=== PATIENT | male | born 1950 | race Caucasian/White ===

== ENCOUNTER 2022-12-01 11:15 | Emergency (ER) | payer MEDICARE, SELFPAY ==
[2022-12-01] VITALS (21 sets, daily range): BP systolic 124–132; BP diastolic 90–100; PULSE 78–95; RESP 8–22; O2SAT 91–98; BMI 27.4
--- NOTE | 2022-12-01 11:18 | ED_ITS ---
HPI - General Adult General Chief complaint: Shortness of Breath/Dyspnea Stated complaint: SOB/FEELS FLUID IN LUNGS Time Seen by Provider: 12/01/22 11:18 History of Present Illness HPI narrative: pt presents emergency department complaining of dyspnea. He states He has been short of breath for the last Weak. He called his primary care doctor today and was told to come in for evaluation. Patient denies any lower extremity edema, or cramping. He has a history of congestive heart failure. He has a implantable cardiac defibrillator implanted by in [place]. Patient is a poor historian. States he has been taking all his medications. States he is not currently on a diuretic. He states he took all of his medications this morning. He denies any chest pain.Denies any fever, chills, or cough. He denies any runny nose, or sore throat. Related Data Home Medications Medication Instructions Recorded Confirmed carvedilol 25 mg tablet 25 mg PO Q12H 12/01/22 12/01/22 levothyroxine 150 mcg tablet 200 mcg PO DAILY 12/01/22 12/01/22 sacubitril 24 mg-valsartan 26 mg 1 tab PO BID 12/01/22 12/01/22 tablet (Entresto) Previous Rx's Medication Instructions Recorded cefdinir 300 mg capsule 300 mg PO BID 10 days #20 caps 12/01/22 furosemide 20 mg tablet (Lasix) 20 mg PO DAILY #7 tabs 12/01/22 ondansetron HCl 4 mg tablet 4 mg PO Q6H PRN nausea and 12/01/22 vomiting #10 tabs Allergies Allergy/AdvReac Type Severity Reaction Status Date / Time No Known Drug Allergies Allergy Verified 12/01/22 11:24 Review of Systems ROS Status of ROS 10 or more systems reviewed and unremarkable except as noted in history and below Exam Narrative Exam Narrative: Nurses notes and vital signs reviewed and patient is not hypoxic. General: Nontoxic, Elderly, frail, chronically ill and in no apparent distress. Skin: Warm, dry, no pallor noted. No Rash Head: Normocephalic, atraumatic. Neck: Supple, non-tender. Eye: Pupils are equal, round and EOMI. No scleral icterus. Ears, Nose, Mouth, and Throat: TM clear, no posterior oropharynx erythema or nasal mucosal hypertrophy, uvula is mid-line Oral mucosa is moist Cardiovascular: Regular Rate and Rhythm without murmur, gallop or rub. Respiratory: No accessory muscle use or respiratory distress. Lungs: occasional crackles. Chest Wall: no tenderness Back: No midline thoracic or lumbar vertebral tenderness. No CVA tenderness Musculoskeletal: normal ROM, no calf or popliteal tenderness, no lower extremity edema/swelling GI: Abdomen is soft, non-distended. Normal bowel sounds. No masses appreciated. No tenderness to palpation. No rebound, guarding, or rigidity noted. Neurological: A&O x4. No cranial nerve dysfunction observed. No truncal ataxia. Moves all extremities. Sensation intact. Psychiatric: Cooperative and interactive. Normal mood and affect. Constitutional Vital Signs, click to edit/add: Last Vital Signs Pulse 78 12/01/22 14:20 Resp 8 L 12/01/22 14:20 BP 127/94 H 12/01/22 13:31 Pulse Ox 97 12/01/22 14:20 O2 Del Method Room Air 12/01/22 11:19 Course Vital Signs Vital signs: Vital Signs Pulse Rate 94 H 12/01/22 11:19 Respiratory Rate 22 12/01/22 11:19 Blood Pressure 132/100 H 12/01/22 11:19 Pulse Oximetry 97 12/01/22 11:19 Oxygen Delivery Method Room Air 12/01/22 11:19 Pulse Rate 78 12/01/22 14:20 Respiratory Rate 8 L 12/01/22 14:20 Blood Pressure 127/94 H 12/01/22 13:31 Pulse Oximetry 97 12/01/22 14:20 Oxygen Delivery Method Room Air 12/01/22 11:19 Medical Decision Making [facility] Narrative Medical decision making narrative: Patient hemodynamically stable. He is not hypoxic. He was given Lasix 20 mg IV which helped diurese. 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 She will be given Lasix 20 mg to take home for 3 days. She was started on Omnicef. Nontoxic, stable for outpatient follow-up and treatment. Patient vomited one time in the emergency department. He is given a prescription for Zofran. He was given Zofran in the emergency department he was tolerating by mouth. Abdomen is benign and nonsurgical. At this time the patient is without objective evidence of an acute process requiring hospitalization or inpatient management. The patient has remained hemodynamically stable. No additional indication for emergent studies at this time. I answered all questions. Discussed discharge instructions including standard anticipatory guidance and what should prompt a return to the emergency department, including if they get worse are not getting better or develops any new or concerning symptoms. I've given them specific time frame in which to follow-up, and who to follow-up with. The patient demonstrates understanding. Patient is nontoxic and stable for discharge with outpatient follow-up. This note was created with the assistance of a speech recognition program. Although the intention is to generate documents that actually reflects the content of the visit, no guarantees can be provided that every mistake has been identified and corrected by editing. Medical Records Medical records reviewed: Yes I reviewed the patient's medical records Lab Data Lab results reviewed: Yes I reviewed the patient's lab results Labs: Lab Results 12/01/22 12/01/22 12/01/22 Range/Units 11:35 13:46 14:35 WBC 5.1 (4.0-11.0) 10^3/uL RBC 4.53 L (4.70-6.10) 10^6/uL Hgb 14.8 (14.0-18.0) g/dL Hct 44.7 (42.0-54.0) % MCV 98.7 H (80.0-94.0) fL MCH 32.7 (25.9-34.0) pg MCHC 33.1 (29.9-35.2) g/dL RDW 14.6 (11.0-15.0) % Plt Count 185 (150-450) 10^3/uL MPV 10.4 (9.5-13.5) fL Neut % (Auto) 64.5 (43.0-75.0) % Lymph % (Auto) 23.5 (20.5-60.0) % Yates % (Auto) 5.9 (1.7-12.0) % Eos % (Auto) 3.7 (0.9-7.0) % Baso % (Auto) 1.4 (0.2-2.0) % Neut # (Auto) 3.3 (1.4-6.5) 10^3/uL Lymph # (Auto) 1.2 (1.2-3.8) 10^3/uL Yates # (Auto) 0.3 (0.3-0.8) 10^3/uL Eos # (Auto) 0.2 (0.0-0.7) 10^3/uL Baso # (Auto) 0.1 (0.0-0.1) 10^3/uL Abs Immat Gran (auto) 0.05 H (0.00-0.03) 10^3/uL Imm/Tot Granulo (auto) 1.0 H (0.0-0.5) % Sodium 140 (136-145) mmol/L Potassium 3.9 (3.5-5.1) mmol/L Chloride 105 (98-107) mmol/L Carbon Dioxide 29.0 (21.0-32.0) mmol/L Anion Gap 9.9 BUN 10.0 (7.0-18.0) mg/dL Creatinine 1.79 H (0.70-1.30) mg/dL Est GFR ( Amer) 46 L (>=60) Est GFR (Non-Af Amer) 38 L (>=60) BUN/Creatinine Ratio 5.6 Glucose 126 H (74-106) mg/dL Lactate 0.9 (0.4-2.0) mmol/L Calcium 8.5 (8.5-10.1) mg/dL Total Bilirubin 1.9 H (0.2-1.0) mg/dL AST 51 H (15-37) U/L ALT 27 (16-63) U/L Alkaline Phosphatase 70 (46-116) U/L Troponin I High Sens 21.4 (4.0-76.1) pg/mL NT-Pro-B Natriuret Pep 2725.0 H* (<=900.0) pg/mL Total Protein 8.3 H (6.4-8.2) g/dL Albumin 3.8 (3.4-5.0) g/dL Globulin 4.5 g/dL Albumin/Globulin Ratio 0.8 Lipase 102.0 (73.0-393.0) U/L Urine Color Lt. yellow (YELLOW) Urine Clarity Clear (CLEAR) Urine pH 6.0 (5.0-9.0) Ur Specific [place] <=1.005 A (1.005-1.025) Urine Protein Negative (NEG/TRACE) mg/dL Urine Glucose (UA) Negative (NEGATIVE) mg/dL Urine Ketones Negative (NEGATIVE) mg/dL Urine Occult Blood Negative (NEGATIVE) Urine Nitrite Negative (NEGATIVE) Urine Bilirubin Negative (NEGATIVE) Urine Urobilinogen 0.2 (0.2-1.0) EU/dL Ur Leukocyte Esterase Negative (NEGATIVE) ECG Data Attestation: I personally reviewed and interpreted this ECG as follows: Discharge Plan Discharge Chief Complaint: Shortness of Breath/Dyspnea Clinical Impression: Congestive heart failure, Community acquired pneumonia, Pleural effusion Patient Disposition: Home, Self-Care Time of Disposition Decision: 14:53 Condition: Good Mode of Transportation: Private Vehicle Prescriptions / Home Meds: New cefdinir 300 mg capsule 300 mg PO BID 10 Days Qty: 20 0RF furosemide [Lasix] 20 mg tablet 20 mg PO DAILY Qty: 7 0RF ondansetron HCl 4 mg tablet 4 mg PO Q6H PRN (Reason: nausea and vomiting) Qty: 10 0RF No Action carvedilol 25 mg tablet 25 mg PO Q12H levothyroxine 150 mcg tablet 200 mcg PO DAILY Entresto 24-26 mg tablet 1 tab PO BID Instructions: Heart Failure (ED), Community Acquired Pneumonia (ED) Additional Instructions: 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 Stand Alone Forms: Portal Instructions Referrals: JAN RIZZO [Primary Care Provider] - 1 week Discharge Date/Time: 12/01/22 15:10
--- NOTE | 2022-12-01 11:25 | XR_ITS ---
The [address] [address] Patient Name: CORKY DUENAS MRN: [id number] date: 1950 Sex: M Assigned Patient Location: ER Current Patient Location: ER Accession/Order Number: [id number] Exam Date: 12/01/2022 11:58 Report Date: 12/01/2022 12:11 At the request of: DUSTIN AGUIRRE Procedure: XR chest 1V EXAMINATION: XR chest 1V HISTORY: dyspnea COMPARISON: 04/17/2021 TECHNIQUE: AP portable FINDINGS: LUNGS: Low lung volumes. The right lung is clear. Left basilar infiltrate partially obscuring the hemidiaphragm VASCULATURE: No increased pulmonary vasculature. PLEURA: No pneumothorax, effusion, or pleural thickening. CARDIAC: No cardiomegaly or cardiac silhouette abnormality. MEDIASTINUM: No visible mass or adenopathy. Left stable pacemaker BONES: No fracture or visible bone lesion. OTHER: Negative. XR/XR chest 1V IMPRESSION: Left basilar infiltrate, consider pneumonia Electronically authenticated by: CANDI LOGAN Date: 12/01/2022 12:11
--- NOTE | 2022-12-01 11:25 | ECG_ITS ---
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
[2022-12-01 11:53] LABS: Basophils Absolute Auto 0.1 10^3/uL (0.0-0.1); Basophils Percent Auto 1.4 % (0.2-2.0); Eosinophils Absolute Auto 0.2 10^3/uL (0.0-0.7); Eosinophils Percent Auto 3.7 % (0.9-7.0); Hematocrit 44.7 % (42.0-54.0); Hemoglobin 14.8 g/dL (14.0-18.0); Immature Granulocytes Abs Auto 0.05 10^3/uL (0.00-0.03); Lymphocytes Absolute Auto 1.2 10^3/uL (1.2-3.8); Lymphocytes Percent Auto 23.5 % (20.5-60.0); Mean Corpuscular HGB Conc 33.1 g/dL (29.9-35.2); Mean Corpuscular Hemoglobin 32.7 pg (25.9-34.0); Mean Corpuscular Volume 98.7 fL (80.0-94.0); Mean Platelet Volume 10.4 fL (9.5-13.5); Monocytes Absolute Auto 0.3 10^3/uL (0.3-0.8); Monocytes Percent Auto 5.9 % (1.7-12.0); Neutrophils Absolute Auto 3.3 10^3/uL (1.4-6.5); Neutrophils Percent Auto 64.5 % (43.0-75.0); Platelet Count 185 10^3/uL (150-450); Red Blood Count 4.53 10^6/uL (4.70-6.10); Red Cell Distribution Width 14.6 % (11.0-15.0); White Blood Count 5.1 10^3/uL (4.0-11.0)
[2022-12-01 12:10] LABS: Anion Gap 9.9
[2022-12-01 12:16] LABS: Alanine Aminotransferase 27 U/L (16-63); Albumin Globulin Ratio 0.8; Albumin Level 3.8 g/dL (3.4-5.0); Alkaline Phosphatase 70 U/L (46-116); Aspartate Amino Transferase 51 U/L (15-37); BUN Creatinine Ratio 5.6; Bilirubin Total 1.9 mg/dL (0.2-1.0); Calcium 8.5 mg/dL (8.5-10.1); Chloride 105 mmol/L (98-107); Estimated GFR (African America 46 (>=60); Estimated GFR (Non-African Ame 38 (>=60); Globulin 4.5 g/dL; Glucose 126 mg/dL (74-106); Potassium 3.9 mmol/L (3.5-5.1); Sodium 140 mmol/L (136-145); Total Protein 8.3 g/dL (6.4-8.2); Troponin I High Sensitivity 21.4 pg/mL (4.0-76.1)
[2022-12-01] MEDS: CEFTRIAXONE 1,000 MG in 0.9 % SODIUM CHLORIDE 50 ML 100 MG IV (12:53)
[2022-12-01] MEDS: ONDANSETRON PF 4 MG/2 ML VIAL IV (13:11)
--- NOTE | 2022-12-01 13:29 | CT_ITS ---
The [address] [address] Patient Name: CORKY DUENAS MRN: [id number] date: 1950 Sex: M Assigned Patient Location: ER Current Patient Location: ER Accession/Order Number: [id number] Exam Date: 12/01/2022 13:55 Report Date: 12/01/2022 14:29 At the request of: DUSTIN AGUIRRE Procedure: CT abdomen pelvis wo con EXAM: CT abdomen pelvis wo con HISTORY: pain . Acute upper abdominal pain COMPARISON: 2021 CT abdomen pelvis TECHNIQUE: 3 mm axial images were obtained in the pelvis without contrast FINDINGS: Small bilateral pleural effusions. Multiple small hepatic hypodensities, likely cysts. The stomach is nondistended. Spleen appears normal. Previous cholecystectomy. Simple and complex cysts of the bilateral kidneys. The largest measuring 3.5 and 3.8 cm on the right. Additional small hyperdense most likely hemorrhagic cysts. Additional cysts of the left kidney largest 17 mm. 4 and 5 mm nephroliths left kidney. No hydronephrosis. The distal ureters appear unremarkable Mild presacral stranding or fluid.. Colonic diverticula. No obstruction or inflammation. The terminal ileum appears normal. The appendix is not seen. Few mildly prominent proximal small bowel loops without mural thickening or nonobstructive pattern. No ascites. Vascular calcification of the abdominal aorta. No skeletal abnormality CT/CT abdomen pelvis wo con IMPRESSION: Bilateral pleural effusions. Hepatic cysts Simple and complex renal cysts. Limited evaluation without contrast Nonobstructing left-sided nephroliths. No acute findings in the abdomen and pelvis by CT without contrast Electronically authenticated by: SPEEDY WHYTE Date: 12/01/2022 14:29
[2022-12-01] MEDS: FUROSEMIDE 20 MG/2 ML VIAL IVP (13:31)
[2022-12-01 14:09] LABS: Lactate/Lactic Acid 0.9 mmol/L (0.4-2.0)
[2022-12-01 14:59] LABS: Bilirubin Urine NEGATIVE (NEGATIVE); Blood Urine NEGATIVE (NEGATIVE); Clarity Urine CLEAR (CLEAR); Color Urine LT. YELLOW (YELLOW); Glucose Urine UA NEGATIVE (NEGATIVE); Ketones Urine NEGATIVE (NEGATIVE); Leukocyte Esterase Urine NEGATIVE (NEGATIVE); Nitrite Urine NEGATIVE (NEGATIVE); Protein Urine NEGATIVE (NEG/TRACE); Specific Gravity Urine <=1.005 (1.005-1.025); Urobilinogen Urine 0.2 EU/dL (0.2-1.0)
[2022-12-01 15:07] LABS: Urine Microscopic Indicated NO
== END 2022-12-01 15:10 | disposition home or self-care (01) ==
PROVIDERS: Emergency Provider Emergency Medicine; PCP Internal Medicine
DX: J18.9 Pneumonia, unspecified organism (principal); I50.9 Heart failure, unspecified; Z95.810 Presence of automatic (implantable) cardiac defibrillator; Z79.899 Other long term (current) drug therapy; Z79.890 Hormone replacement therapy
CPT/HCPCS: 36415; 71045; 74176; 80053; 81003; 83605; 83690; 83880; 84484; 85025; 87040; 93005; 96365; 96375; 99285

== ENCOUNTER 2023-01-09 13:55 | Outpatient (OUT) | payer MEDICARE, SELFPAY ==
[2023-01-09 15:08] LABS: Free T3 0.54 pg/mL (2.18-3.98)
[2023-01-09 15:14] LABS: Free T4 0.16 ng/dL (0.76-1.46)
== END 2023-01-09 13:56 | disposition home or self-care (01) ==
LOC: LAB 13:57
PROVIDERS: PCP Internal Medicine; Visit Provider Internal Medicine
DX: E06.3 Autoimmune thyroiditis (principal); E55.9 Vitamin D deficiency, unspecified
CPT/HCPCS: 36415; 82306; 84439; 84443; 84481

== ENCOUNTER 2023-02-10 09:48 | Emergency (ER) | payer MEDICARE, SELFPAY ==
[2023-02-10 09:54] VITALS: BP 118/90; PULSE 98; RESP 16; TEMP 36.4; O2SAT 98; BMI 25.2
--- NOTE | 2023-02-10 10:31 | ED_ITS ---
HPI - Dizziness General Chief Complaint: Dizziness Stated Complaint: DIZZINESS Time Seen by Provider: 02/10/23 10:17 Source: patient Mode of arrival: Wheelchair Limitations: no limitations History of Present Illness HPI Narrative: patient here with his friend with complaint of dizziness. He states when he walks and moves around his head feels like it swimming and everything going around. He's had this condition off and on for some time. He does not have associated headache. He does not have diplopia dysarthria or dysphasia. He's nota clumsiness of his hands or his legs. He lives independently. He has not fallen. He does not have any pain in his neck. He does not have any chest pain or shortness of breath. He does have valvular heart disease and apparently told him it [place] that they did not want to do surgery on him and is not much more they could do. He does have a local primary care doctor needs told him about the dizziness previously but is not on any medications. Related Data Home Medications Medication Instructions Recorded Confirmed carvedilol 25 mg tablet 25 mg PO Q12H 12/01/22 12/01/22 levothyroxine 150 mcg tablet 200 mcg PO DAILY 12/01/22 12/01/22 sacubitril 24 mg-valsartan 26 mg 1 tab PO BID 12/01/22 12/01/22 tablet (Entresto) Previous Rx's Medication Instructions Recorded cefdinir 300 mg capsule 300 mg PO BID 10 days #20 caps 12/01/22 furosemide 20 mg tablet (Lasix) 20 mg PO DAILY #7 tabs 12/01/22 ondansetron HCl 4 mg tablet 4 mg PO Q6H PRN nausea and 12/01/22 vomiting #10 tabs Allergies Allergy/AdvReac Type Severity Reaction Status Date / Time No Known Drug Allergies Allergy Verified 12/01/22 11:24 [facility] Social History Smoking status: Former smoker Exam Narrative Exam Narrative: awake alert appears in no distress he's a good historian actually. Vital signs are noted. Examination constitutional skin turgor are good with no dense pallor or scleral icterus or anemia. Neck shows no jugular venous distention. No carotid bruits on either side. Chest examination shows a loud grade 4/6 systolic murmur. Heart rate and rhythm are otherwise normal. He does have a pacemaker in his left upper chest and his EKG is a paced rhythm. Abdomen is soft and supple with no tenderness guarding mass or rebound. Isabel rological examination shows speech cognition and mentation within normal. Cerebellar function testing is normal. On x-ray neck muscle testing of his eyes he has definite nystagmus with left and right lateral gaze it is horizontal and not vertical. Movement of the extremities and strength is normal with no obvious neurological deficit. Constitutional Vital Signs, click to edit/add: Last Vital Signs Temp 97.5 F L 02/10/23 09:54 Pulse 98 H 02/10/23 09:54 Resp 16 02/10/23 09:54 BP 118/90 02/10/23 09:54 Pulse Ox 98 02/10/23 09:54 O2 Del Method Room Air 02/10/23 09:54 Course Vital Signs Vital signs: Vital Signs Temperature 97.5 F L 02/10/23 09:54 Pulse Rate 98 H 02/10/23 09:54 Respiratory Rate 16 02/10/23 09:54 Blood Pressure 118/90 02/10/23 09:54 Pulse Oximetry 98 02/10/23 09:54 Oxygen Delivery Method Room Air 02/10/23 09:54 Temperature 97.5 F L 02/10/23 09:54 Pulse Rate 98 H 02/10/23 09:54 Respiratory Rate 16 02/10/23 09:54 Blood Pressure 118/90 02/10/23 09:54 Pulse Oximetry 98 02/10/23 09:54 Oxygen Delivery Method Room Air 02/10/23 09:54 MDM - Dizziness MDM Narrative Medical decision making narrative: patient comes in with an exacerbation of dizziness. CT scan shows no acute findings. Examination had no focal neurological deficits and there is no bulbar symptomatology. His EKG is a paced rhythm. I hear no carotid bruits. He's never been treated with any type of medication for dizziness. We'll start him on Antivert but is important that he follow up with the primary care doctor consider other diagnostic testing Discharge Plan Discharge Chief Complaint: Dizziness Clinical Impression: Vertigo Patient Disposition: Home, Self-Care Time of Disposition Decision: 11:24 Prescriptions / Home Meds: No Action carvedilol 25 mg tablet 25 mg PO Q12H levothyroxine 150 mcg tablet 200 mcg PO DAILY Entresto 24-26 mg tablet 1 tab PO BID cefdinir 300 mg capsule 300 mg PO BID 10 Days Qty: 20 0RF furosemide [Lasix] 20 mg tablet 20 mg PO DAILY Qty: 7 0RF ondansetron HCl 4 mg tablet 4 mg PO Q6H PRN (Reason: nausea and vomiting) Qty: 10 0RF Additional Instructions: start Antivert one tablet three times a day for several days. Follow up primary care doctor if symptoms don't improve for further testing Stand Alone Forms: Portal Instructions Referrals: JAN RIZZO [Primary Care Provider] - 1 week
--- NOTE | 2023-02-10 10:31 | CT_ITS ---
The [address] [address] Patient Name: CORKY DUENAS MRN: [id number] date: 1950 Sex: M Assigned Patient Location: ER Current Patient Location: ER Accession/Order Number: [id number] Exam Date: 02/10/2023 10:37 Report Date: 02/10/2023 10:55 At the request of: MEGAN GUILLAUME Procedure: CT head/brain wo con EXAM: CT head/brain wo con HISTORY: vertigo COMPARISON: None. TECHNIQUE: Axial noncontrast CT imaging of the brain was performed with coronal and sagittal reformats This CT exam was performed using one or more of the following dose reduction techniques: Automated exposure control, adjustment of the MA and/or kV according to patient size, or use of iterative reconstruction technique. FINDINGS: Calvarium/skull base: No evidence of acute fracture or destructive lesion. Mastoids and middle ears demonstrate no substantial mucosal disease. Paranasal sinuses: No air fluid levels. Brain: No acute intracranial hemorrhage. No acute large vascular territory infarct. Prominent calcification of the bilateral globus pallidus, likely physiologic in nature. Mild parenchymal No mass lesion or mass effect. No hydrocephalus. CT/CT head/brain wo con IMPRESSION: No acute intracranial process. Electronically authenticated by: SANJU CONTRERAS Date: 02/10/2023 10:55
--- NOTE | 2023-02-10 15:03 | ECG_ITS ---
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
== END 2023-02-10 11:35 | disposition home or self-care (01) ==
PROVIDERS: Emergency Provider Emergency Medicine Emergency Medical Services; PCP Internal Medicine
DX: R42 Dizziness and giddiness (principal); Z79.899 Other long term (current) drug therapy; Z79.890 Hormone replacement therapy; Z87.891 Personal history of nicotine dependence
CPT/HCPCS: 70450; 93005; 99284

== ENCOUNTER 2023-03-03 10:08 | Inpatient (IN) | payer MEDICARE, SELFPAY ==
[2023-03-03] VITALS (36 sets, daily range): BP systolic 69–116; BP diastolic 44–86; PULSE 86–102; RESP 10–31; TEMP 35.7–36.4; O2SAT 87–99; BMI 24.2; BMI 25.7
--- NOTE | 2023-03-03 10:23 | CT_ITS ---
The [address] [address] Patient Name: CORKY DUENAS MRN: [id number] date: 1950 Sex: M Assigned Patient Location: ED.MAIN Current Patient Location: Accession/Order Number: [id number] Exam Date: 03/03/2023 10:38 Report Date: 03/03/2023 11:06 At the request of: NORBERTO SCHWARTZ Procedure: CT head/brain wo con EXAMINATION: CT head/brain wo con HISTORY: fall , dizziness COMPARISON: CT head 02/10/2023 TECHNIQUE: Axial CT images were obtained without IV contrast. Dose reduction techniques were achieved by using automated exposure control and/or adjustment of mA and/or kV according to patient size and/or use of iterative reconstruction technique. FINDINGS: BRAIN: Stable, chronic calcium deposition within the basal ganglia bilaterally. Mild atrophy and chronic small vessel ischemic changes. No edema, hemorrhage, mass, acute infarction, or inappropriate atrophy. CSF SPACES: No hydrocephalus, subarachnoid hemorrhage, or mass. Appropriate for age. SKULL: No fracture, mass, or other significant visible lesion. SINUSES: No significant mucosal thickening or fluid on the limited views. ORBITS: No appreciable abnormality on the limited views. OTHER: Negative CT/CT head/brain wo con IMPRESSION: 1. No intracranial hemorrhage or appreciable acute abnormality. 2. Stable age-related chronic changes. 3. No fracture of the calvarium or scalp hematoma. Electronically authenticated by: YAJAIRA MISHRA Date: 03/03/2023 11:06
--- NOTE | 2023-03-03 10:23 | XR_ITS ---
The [address] [address] Patient Name: CORKY DUENAS MRN: [id number] date: 1950 Sex: M Assigned Patient Location: ED.MAIN Current Patient Location: ER Accession/Order Number: [id number] Exam Date: 03/03/2023 10:38 Report Date: 03/03/2023 11:00 At the request of: NORBERTO SCHWARTZ Procedure: XR chest 1V EXAMINATION: XR chest 1V HISTORY: dizziness COMPARISON: XR chest 12/01/2022 FINDINGS: LUNGS: Large area of increased density within right upper lobe, 8.2 cm in diameter. Left lung is clear. VASCULATURE: No increased pulmonary vasculature. PLEURA: No pneumothorax, effusion, or pleural thickening. CARDIAC: Stable heart size. Grossly stable cardiac pacer. MEDIASTINUM: No visible mass or adenopathy. BONES: No fracture or visible bone lesion. OTHER: Negative. XR/XR chest 1V IMPRESSION: 1. Large right upper lobe opacities suspected to represent pneumonia; new since prior study. Electronically authenticated by: YAJAIRA MISHRA Date: 03/03/2023 11:00
--- NOTE | 2023-03-03 10:23 | ECG_ITS ---
The 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
[2023-03-03 10:37] LABS: Basophils Absolute Auto 0.1 10^3/uL (0.0-0.1); Basophils Percent Auto 1.6 % (0.2-2.0); Eosinophils Absolute Auto 0.1 10^3/uL (0.0-0.7); Eosinophils Percent Auto 0.8 % (0.9-7.0); Hematocrit 41.7 % (42.0-54.0); Immature Granulocytes Abs Auto 0.08 10^3/uL (0.00-0.03); Immature Granulocytes Pct Auto 1.3 % (0.0-0.5); Lymphocytes Percent Auto 15.9 % (20.5-60.0); Mean Corpuscular HGB Conc 31.2 g/dL (29.9-35.2); Mean Corpuscular Hemoglobin 32.6 pg (25.9-34.0); Mean Corpuscular Volume 104.5 fL (80.0-94.0); Monocytes Absolute Auto 0.3 10^3/uL (0.3-0.8); Monocytes Percent Auto 4.8 % (1.7-12.0); Neutrophils Absolute Auto 4.6 10^3/uL (1.4-6.5); Neutrophils Percent Auto 75.6 % (43.0-75.0); Platelet Count 297 10^3/uL (150-450); Red Blood Count 3.99 10^6/uL (4.70-6.10); Red Cell Distribution Width 16.6 % (11.0-15.0); White Blood Count 6.1 10^3/uL (4.0-11.0)
[2023-03-03 10:53] LABS: Anion Gap 12.6; BUN Creatinine Ratio 9.6; Carbon Dioxide 28.2 mmol/L (21.0-32.0); Chloride 103 mmol/L (98-107); Estimated GFR (African America 43 (>=60); Estimated GFR (Non-African Ame 36 (>=60); Glucose 132 mg/dL (74-106); Potassium 3.8 mmol/L (3.5-5.1); Sodium 140 mmol/L (136-145); Troponin I High Sensitivity 15.3 pg/mL (4.0-76.1)
[2023-03-03] MEDS: CEFTRIAXONE 1,000 MG in 0.9 % SODIUM CHLORIDE 50 ML 100 MG IV (11:26)
[2023-03-03 11:28] LABS: Lactate/Lactic Acid 2.1 mmol/L (0.4-2.0)
--- NOTE | 2023-03-03 12:02 | ED.GENADUL1 ---
HPI - General Adult General Chief complaint: Dizziness Stated complaint: SYNCOPE Time Seen by Provider: 03/03/23 10:11 Source: patient Mode of arrival: Wheelchair Limitations: physical limitation History of Present Illness HPI narrative: 72-year-old male presented for weakness and dizziness. He had fallen about a week ago and hit his head. He reportedly had a negative CAT scan as an outpatient. He states had a slight cough and has felt more weak. No vomiting or diarrhea. No hemoptysis. Related Data Home Medications Medication Instructions Recorded Confirmed carvedilol 25 mg tablet 25 mg PO Q12H 12/01/22 12/01/22 levothyroxine 150 mcg tablet 200 mcg PO DAILY 12/01/22 12/01/22 sacubitril 24 mg-valsartan 26 mg 1 tab PO BID 12/01/22 12/01/22 tablet (Entresto) meclizine 25 mg chewable tablet 25 mg PO TID 02/10/23 02/10/23 (Antivert) Previous Rx's Medication Instructions Recorded cefdinir 300 mg capsule 300 mg PO BID 10 days #20 caps 12/01/22 furosemide 20 mg tablet (Lasix) 20 mg PO DAILY #7 tabs 12/01/22 ondansetron HCl 4 mg tablet 4 mg PO Q6H PRN nausea and 12/01/22 vomiting #10 tabs Allergies Allergy/AdvReac Type Severity Reaction Status Date / Time No Known Drug Allergies Allergy Verified 03/03/23 10:21 Review of Systems ROS Narrative A ten point review of systems is negative except as noted above. PFSH PFSH Social History Smoking status: Former smoker Exam Narrative Exam Narrative: Nurses note and vital signs reviewed and patient is not hypoxic. General: The patient appears well and in no apparent distress. Patient is resting comfortably on cart. Skin: Warm, dry, no pallor noted. There is no rash noted. Head: Normocephalic, bruise present on the left forehead, cervical spine nontender Eye: Normal conjunctiva, no drainage Ears, Nose, Mouth, and Throat: oral mucosa is moist. Nares patent. Cardiovascular: Regular Rate and Rhythm Respiratory: Patient is in no distress, no accessory muscle use, lungs are clear to auscultation, no wheezing, rales or rhonchi Back: non-tender GI: left and nontender Musculoskeletal: bilateral lower extremity edema present Neurological: A&O x4, normal speech Psychiatric: Cooperative Constitutional Vital Signs, click to edit/add: Last Vital Signs Temp 97.3 F L 03/03/23 10:39 Pulse 102 H 03/03/23 10:15 Resp 18 03/03/23 10:15 BP 107/76 03/03/23 10:15 Pulse Ox 96 03/03/23 10:15 O2 Del Method Room Air 03/03/23 10:15 Course Vital Signs Vital signs: Vital Signs Pulse Rate 102 H 03/03/23 10:15 Respiratory Rate 18 03/03/23 10:15 Blood Pressure 107/76 03/03/23 10:15 Pulse Oximetry 96 03/03/23 10:15 Oxygen Delivery Method Room Air 03/03/23 10:15 Temperature 97.3 F L 03/03/23 10:39 Pulse Rate 102 H 03/03/23 10:15 Respiratory Rate 18 03/03/23 10:15 Blood Pressure 107/76 03/03/23 10:15 Pulse Oximetry 96 03/03/23 10:15 Oxygen Delivery Method Room Air 03/03/23 10:15 Medical Decision Making MDM Narrative Medical decision making narrative: CT brain is negative and chest x-ray shows right upper lobe infiltrate. Blood cultures were obtained and then he was given IV antibiotic and is being admitted. Findings are discussed with the patient. Differential Diagnosis Differential Diagnosis: pneumonia, subdural hematoma, dehydration, anemia Lab Data Lab results reviewed: Yes I reviewed the patient's lab results Labs: Lab Results 03/03/23 Range/Units 10:27 WBC 6.1 (4.0-11.0) 10^3/uL RBC 3.99 L (4.70-6.10) 10^6/uL Hgb 13.0 L (14.0-18.0) g/dL Hct 41.7 L (42.0-54.0) % MCV 104.5 H (80.0-94.0) fL MCH 32.6 (25.9-34.0) pg MCHC 31.2 (29.9-35.2) g/dL RDW 16.6 H (11.0-15.0) % Plt Count 297 (150-450) 10^3/uL MPV 10.0 (9.5-13.5) fL Neut % (Auto) 75.6 H (43.0-75.0) % Lymph % (Auto) 15.9 L (20.5-60.0) % [place] % (Auto) 4.8 (1.7-12.0) % Eos % (Auto) 0.8 L (0.9-7.0) % Baso % (Auto) 1.6 (0.2-2.0) % Neut # (Auto) 4.6 (1.4-6.5) 10^3/uL Lymph # (Auto) 1.0 L (1.2-3.8) 10^3/uL [place] # (Auto) 0.3 (0.3-0.8) 10^3/uL Eos # (Auto) 0.1 (0.0-0.7) 10^3/uL Baso # (Auto) 0.1 (0.0-0.1) 10^3/uL Abs Immat Gran (auto) 0.08 H (0.00-0.03) 10^3/uL Imm/Tot Granulo (auto) 1.3 H (0.0-0.5) % Sodium 140 (136-145) mmol/L Potassium 3.8 (3.5-5.1) mmol/L Chloride 103 (98-107) mmol/L Carbon Dioxide 28.2 (21.0-32.0) mmol/L Anion Gap 12.6 BUN 18.0 (7.0-18.0) mg/dL Creatinine 1.88 H (0.70-1.30) mg/dL Est GFR ( Amer) 43 L (>=60) Est GFR (Non-Af Amer) 36 L (>=60) BUN/Creatinine Ratio 9.6 Glucose 132 H (74-106) mg/dL Lactate 2.1 H (0.4-2.0) mmol/L Calcium 8.0 L (8.5-10.1) mg/dL Troponin I High Sens 15.3 (4.0-76.1) pg/mL Imaging Data chest x-ray and CT brain: Radiologist's impression: Procedure: XR chest 1V EXAMINATION: XR chest 1V HISTORY: dizziness COMPARISON: XR chest 12/01/2022 FINDINGS: LUNGS: Large area of increased density within right upper lobe, 8.2 cm in diameter. Left lung is clear. VASCULATURE: No increased pulmonary vasculature. PLEURA: No pneumothorax, effusion, or pleural thickening. CARDIAC: Stable heart size. Grossly stable cardiac pacer. MEDIASTINUM: No visible mass or adenopathy. BONES: No fracture or visible bone lesion. OTHER: Negative. IMPRESSION: 1. Large right upper lobe opacities suspected to represent pneumonia; new since prior study. Electronically authenticated by: YAJAIRA MISHRA Date: 03/03/2023 11:00 Procedure: CT head/brain wo con EXAMINATION: CT head/brain wo con HISTORY: fall , dizziness COMPARISON: CT head 02/10/2023 TECHNIQUE: Axial CT images were obtained without IV contrast. Dose reduction techniques were achieved by using automated exposure control and/or adjustment of mA and/or kV according to patient size and/or use of iterative reconstruction technique. FINDINGS: BRAIN: Stable, chronic calcium deposition within the basal ganglia bilaterally. Mild atrophy and chronic small vessel ischemic changes. No edema, hemorrhage, mass, acute infarction, or inappropriate atrophy. CSF SPACES: No hydrocephalus, subarachnoid hemorrhage, or mass. Appropriate for age. SKULL: No fracture, mass, or other significant visible lesion. SINUSES: No significant mucosal thickening or fluid on the limited views. ORBITS: No appreciable abnormality on the limited views. OTHER: Negative IMPRESSION: 1. No intracranial hemorrhage or appreciable acute abnormality. 2. Stable age-related chronic changes. 3. No fracture of the calvarium or scalp hematoma. Electronically authenticated by: YAJAIRA MISHRA Date: 03/03/2023 11:06 Discharge Plan Discharge Chief Complaint: Dizziness Clinical Impression: Right upper lobe pneumonia Patient Disposition: Admitted As Inpatient Time of Disposition Decision: 12:06 Condition: Good Prescriptions / Home Meds: No Action meclizine [Antivert] 25 mg tablet,chewable 25 mg PO TID carvedilol 25 mg tablet 25 mg PO Q12H levothyroxine 150 mcg tablet 200 mcg PO DAILY Entresto 24-26 mg tablet 1 tab PO BID cefdinir 300 mg capsule 300 mg PO BID 10 Days Qty: 20 0RF furosemide [Lasix] 20 mg tablet 20 mg PO DAILY Qty: 7 0RF ondansetron HCl 4 mg tablet 4 mg PO Q6H PRN (Reason: nausea and vomiting) Qty: 10 0RF Referrals: JAN RIZZO [Primary Care Provider] - 1 week
[2023-03-03] MEDS: AZITHROMYCIN 500 MG in 0.9 % SODIUM CHLORIDE 250 ML 250 MG IV (12:07)
--- NOTE | 2023-03-03 13:15 | PC.NURSE ---
Patients money was counted by myself and Nurse Project Officer Coleen PAIGE $494.
--- NOTE | 2023-03-03 14:13 | CA_ITS ---
Patient Name: CORKY DUENAS MR#: [id number] : 1950 Exam Date: 03/03/2023 Ordering Doctor: JAYESH STUART ECHOCARDIOGRAM REPORT PROCEDURE: CA ECHO DOPPLER COMPLETE INDICATIONS: Shortness of breath, peripheral edema, congestive heart failure, AICD COMPARISON: None. DESCRIPTION: COMPLETE ECHOCARDIOGRAM Real-time transthoracic echocardiography with 2D, M-mode, spectral and color flow Doppler performed. QUALITY: Technical quality was good. 66 , 150# , BSA 1.77 m2 LEFT VENTRICLE: Normal chamber size. Normal left ventricular wall thickness. LV EF: Global left ventricular systolic function is severely reduced; visually estimated ejection fraction is 10-15%. Diffuse hypokinesis. Abnormal septal motion; likely related to paced rhythm. DIASTOLIC: Diastolic dysfunction. ATRIAL SEPTUM: Visually appears intact. LEFT ATRIUM: Mild dilatation. RIGHT ATRIUM: Mild dilatation. RIGHT VENTRICLE: Normal chamber size. Systolic function is reduced. Pacer wire present. TRICUSPID VALVE: Normal mobility and thickness. Severe regurgitation. Doppler studies reveal moderately (45-60) elevated right sided pressures. RVSP 59 mmHg MITRAL VALVE: Severe mitral regurgitation. Mildly thickened with decreased mobility. AORTIC VALVE: Normal trileaflet appearance. No visible sclerosis. Normal leaflet mobility. No evidence of aortic valve stenosis. No aortic regurgitation. AORTIC ROOT: Normal diameter and appearance. PULMONIC VALVE: Normal thickness and mobility. No stenosis. Trivial regurgitation. PERICARDIUM: No evidence of pericardial effusion. IVC: IVC is dilated (2.6 cm) with no collapse. CONCLUSION: 1. Global left ventricular systolic function is severely reduced; visually estimated ejection fraction is 10 to 15% 2. The right ventricle is normal in size with reduced systolic function 3. Biatrial enlargement 4. Diastolic dysfunction 5. Severe tricuspid regurgitation 6. Moderately elevated right ventricular systolic pressure; RVSP 59 mmHg 7. Severe mitral regurgitation Adult Echocardiography Procedure Report Left Ventricle LVEDD (3.7 - 5.6 cm): 5.27 cm LVESD (2.2 - 4.0 cm): 4.81 cm LVIVS thickness (0.6 - 1.2 cm): 0.97 cm LVPW thickness (0.5 - 1.0 cm): 0.87 cm e': 0.07 m/s E - e': 17.50 LVOT Max Gradient: 1.14 mm[Hg], 1.75 mm[Hg] LVOT Area (cm2): 0.60 m/s Peak Velocity (LVOT): 0.53 m/s, 0.66 m/s Mean Velocity (LVOT): 0.41 m/s LVOT Diameter 1.94 cm Left Atrium LA Volume Index (2D A2C): 39.16 ml/m2 Left Atrium Systolic Dimension: 4.00 cm Mitral Valve MV E to A Ratio: 2.72 Mitral Valve A-Wave Peak Velocity: 0.45 m/s Mitral Valve E-Wave Peak Velocity: 1.24 m/s Right Ventricle Aorta AO Root Diam: 3.08 cm Ascending Ao Diam: 3.25 cm Aortic Valve AoV Area (Peak [place]): 1.91 cm2, 1.70 cm2 AoV Area (VTI): 1.78 cm2, 1.70 cm2 Peak Velocity(Antegrade Flow): 0.93 m/s Peak Gradient(Antegrade Flow): 3.43 mm[Hg] Mean Velocity(Antegrade Flow): 0.63 m/s Mean Gradient(Antegrade Flow): 1.82 mm[Hg] Velocity Time Integral: 12.66 cm Tricuspid Valve Peak Velocity (Regurgitant Flow): 2.66 m/s, 2.63 m/s, 2.89 m/s, 3.21 m/s, 3.31 m/s Pulmonic Valve Peak Velocity: 0.62 m/s Peak Gradient: 1.46 mm[Hg], 1.62 mm[Hg] Right Atrium Right Atrium Systolic Pressure: 53.64 ml, 53.64 ml Dictated by: Amberly Hill M.D. on 03/03/2023 at 15:39 Approved by: Amberly Hill M.D. on 03/03/2023 at 15:45
--- NOTE | 2023-03-03 14:26 | P.HP_ITS ---
Patient not seen and agree with assessment and plan below. Developed significant hypotension and severe sepsis. Echo showed EF 10%. Will consult cardiology and give IV lasix. Continue antibiotics. Will transfer to ICU and start levophed. Diagnosis: 1. Severe sepsis with shock 2. Pneumonia 3. Acute on chronic HFrEF 4. COPD 5. HTN H&P: HPI History of Present Illness Chief complaint: Dizziness, weakness Narrative: Date/time of exam 03/03/23 [id number] This is a 72-year-old male patient with a past medical history as outlined below including COPD, HFrEF (LVEF 20-25%), CAD, hypothyroidism, cardiac arrhythmia with AICD pacemaker placed, recent diagnosis of vertigo; who presented to the ED today complaining of persistent vertigo refractory to meclizine and increasing weakness with some shortness of breath. The patient was seen in the ED approximately 3 weeks ago due to dizziness and was diagnosed with vertigo and prescribed meclizine. The patient is continued to suffer from vertigo and in fact fell within the last week suffering a contusion to his forehead. He reportedly had a CT obtained as an outpatient at that time which was unremarkable, although we do not have access to that report. The patient complains of some shortness of breath and a nonproductive cough as well. Work-up in the ED revealed stable CKD 3B, no leukocytosis but lactic acidosis (2.1) noted. CT of the head was negative for acute intracranial process. Chest x-ray revealed a large right upper lobe opacity suspected to represent pneumonia. He is being admitted to the hospitalist service as an inpatient for pneumonia. At the time of my exam the patient had recently arrived to the medical floor. His blood pressure was noted to be unstable at the time of arrival to the floor, as low as 69/44. He is mildly tachycardic with heart rate of 100-105 and intermittently tachypneic with respiratory rates up to 33. He is not hypoxic at this time but does complain of mild shortness of breath. He is also noted to be mildly hypothermic with a temperature of 97.3. On exam the patient was noted to have peripheral edema that he states is new over the last 2 days. As the patient has a significant cardiac history and is on Lasix we will obtain a 2D echo to rule out worsening heart failure. Unfortunately we will have to give him an IV fluid bolus at this time as sepsis is clinically suspected. We will repeat a lactic acid now and have very low threshold to give a full 30 ml/kg bolus. In light of tachycardia, LE swelling, and SOB, we will also order a d- dimer and consider a CTA chest pending results. ADDENDUM 1530: Repeat lactic acid trending higher at 2.7. D-dimer critical at 4.92. CTA chest ordered to assess for PE. In addition, pt just reported to nursing that he stopped taking his lasix 2 weeks ago because his prescription ran out. IVFs currently running d/t hypotension/sepsis. Pt may require ICU transfer for pressor support as he is likely in CHF exacerbation as well and likely will not tolerate high volume fluid administration. 2D Echo, procalcitonin, CTA Chest still pending. Review of Systems ROS Status of ROS 10 or more systems reviewed and unremarkable except as noted in history and below [facility] Medical History (Updated 03/03/23 @ 15:21 by Kelly Rico NP) Cardiac defibrillator in place ?Z95.810 - Presence of automatic (implantable) cardiac defibrillator (ICD-10) Congestive heart failure ?I50.9 - Heart failure, unspecified (ICD-10) COPD (chronic obstructive pulmonary disease) with emphysema ?J43.9 - Emphysema, unspecified (ICD-10) HFrEF (heart failure with reduced ejection fraction) ?I50.20 - Unspecified systolic (congestive) heart failure (ICD-10) HTN (hypertension) ?I10 - Essential (primary) hypertension (ICD-10) Hypothyroidism ?E03.9 - Hypothyroidism, unspecified (ICD-10) Myocardial infarction ?I21.9 - Acute myocardial infarction, unspecified (ICD-10) Pleural effusion ?J90 - Pleural effusion, not elsewhere classified (ICD-10) Polyposis of colon ?K63.5 - Polyp of colon (ICD-10) Vertigo ?R42 - Dizziness and giddiness (ICD-10) Surgical History (Updated 03/03/23 @ 15:21 by Kelly Rico NP) H/O cardiac catheterization ?Z98.890 - Other specified postprocedural states (ICD-10) History of appendectomy ?Z90.49 - Acquired absence of other specified parts of digestive tract (ICD- 10) History of cholecystectomy ?Z90.49 - Acquired absence of other specified parts of digestive tract (ICD- 10) History of colonoscopy ?Z98.890 - Other specified postprocedural states (ICD-10) History of esophagogastroduodenoscopy (EGD) ?Z98.890 - Other specified postprocedural states (ICD-10) History of implantable cardioverter-defibrillator (ICD) placement ?Z95.810 - Presence of automatic (implantable) cardiac defibrillator (ICD-10) Family History Mother Family history of CHF (congestive heart failure) Family history of diabetes mellitus Social History (Updated 03/03/23 @ 14:48 by Jany Enciso) Within the past year, how often did you have a drink containing alcohol: never Score interpretation: A score less than 4 is consistent with normal alcohol consumption. Smoking status: Former smoker Previous occupational history: [employer] Known occupational exposures/hazards: No Highest level of school completed/degree received: high school graduate Are you now , , , , never or living with a partner: In a typical week, how many times do you talk on the telephone with family, friends, or neighbors: 3 or more times per week How often do you get together with friends or relatives: 3 or more times per week How often do you attend adventist or caodaism services: never Do you belong to any clubs or organizations such as adventist groups unions, fraternal or athletic groups, or school groups: no Total score: 1 Score interpretation: A score of less than or equal to 1 indicates the most socially isolated. Little interest or pleasure in doing things: not at all Feeling down, depressed, or hopeless: not at all Feel stressed/tense/nervous/anxious/difficulty sleeping: only a little Due to disability, difficulty making decisions: No Do you think of yourself as: straight/heterosexual Gender Identity: male Meds Home Medications and Allergies Home Medications Medication Instructions Recorded Confirmed Type carvedilol 25 mg tablet 25 mg PO Q12H 12/01/22 03/03/23 History furosemide 20 mg tablet (Lasix) 20 mg PO DAILY #7 tabs 12/01/22 03/03/23 Rx levothyroxine 150 mcg tablet 200 mcg PO DAILY 12/01/22 03/03/23 History sacubitril 24 mg-valsartan 26 mg 1 tab PO BID 12/01/22 03/03/23 History tablet (Entresto) meclizine 25 mg chewable tablet 25 mg PO TID 02/10/23 03/03/23 History (Antivert) Allergies Allergy/AdvReac Type Severity Reaction Status Date / Time No Known Drug Allergies Allergy Verified 03/03/23 10:21 Exam Constitutional Vital Signs, click to edit/add: Last Vital Signs Temp 97.3 F L 03/03/23 10:39 Pulse 99 H 03/03/23 14:13 Resp 16 03/03/23 14:05 BP 79/52 L 03/03/23 14:05 Pulse Ox 95 03/03/23 14:05 O2 Del Method Room Air 03/03/23 14:05 Common normals: no apparent distress, oriented x3, alert and well nourished General appearance: cooperative Orientation/consciousness: Yes awake HENMT Common normals: normocephalic, hearing grossly normal bilaterally, external nose normal and moist oral mucous membranes Head and scalp: normocephalic Face and sinus: facial ecchymosis (L forehead) Nose: external nose normal Eye Common normals: PERRL, EOMs intact bilaterally, conjunctivae normal and no scleral icterus Neck & C-Spine Common normals: full ROM, supple and no JVD Chest Common normals: inspection of chest normal Chest: symmetrical chest wall rise Respiratory Common normals: normal respiratory effort, no retractions and no use of accessory muscles Effort & inspection: able to speak in complete sentences Auscultation: rhonchi (RUL) and diminished lung sounds (BLL) Cardio Common normals: no JVD, regular rhythm, no gallops, no clicks, no murmurs, no rub and peripheral pulses 2+ throughout Heart sounds: other (very diminished HT) GI Common normals: Normal to inspection, nondistended, normoactive bowel sounds present, soft to palpation, no hepatosplenomegaly, no masses and no bruits Palpation: tender (Mild, non-focal RLQ) Bladder/kidney exam: bladder normal to palpation Back & Pelvis Common normals: thoracic and lumbar spine normal to inspection Extremity Common normals: normal capillary refill General: normal exam except as noted and edema (BLE 2+ knees to toes); no clubbing and no cyanosis Neuro Purnima Coma Scale: GCS not evaluated Common normals: oriented x3, CN's II-XII intact bilaterally, moves all extremi ties, no focal motor deficits and no sensory deficits noted Sensorium/orientation: awake and alert Speech: speech normal Motor exam: strength 5/5 throughout Psych Common normals: mental status grossly normal, thought process normal, affect normal and activity/motor behavior normal Results Labs Labs: Short CBC 03/03/23 Range/Units 10:27 WBC 6.1 (4.0-11.0) 10^3/uL Hgb 13.0 L (14.0-18.0) g/dL Hct 41.7 L (42.0-54.0) % Plt Count 297 (150-450) 10^3/uL BMP 03/03/23 10:27 Sodium 140 Potassium 3.8 Chloride 103 Carbon Dioxide 28.2 BUN 18.0 Creatinine 1.88 H Glucose 132 H Calcium 8.0 L Pulse Oximetry Attestation: I have reviewed the pertinent pulse oximetry results. ECG Attestation: ?I have reviewed the pertinent ECG results. Imaging Chest x-ray: Attestation: I have reviewed the pertinent imaging results. Radiologist's impression: IMPRESSION: 1. Large right upper lobe opacities suspected to represent pneumonia; new since prior study. CT scan - head: Attestation: I have reviewed the pertinent imaging results. Radiologist's impression: IMPRESSION: 1. No intracranial hemorrhage or appreciable acute abnormality. 2. Stable age-related chronic changes. 3. No fracture of the calvarium or scalp hematoma. Assessment and Plan Assessment and Plan (1) Sepsis: Assessment and Plan: ACUTE * Adm inpatient * Sepsis AEB: HR 105, RR 33, BP 69/44, LA 2.1, SOFA score of 2, Source: RUL PNA * 1L IVF bolus now * Low threshold to complete 30 ml/kg bolus pending clinical course * Repeat lactic acid now * Add procalcitonin now * VS q4h for close monitoring * See pneumonia for ABX * Check D-dimer and consider CTA chest pending results * Daily CBC, CMP (2) Right upper lobe pneumonia: Assessment and Plan: ACUTE * Large infiltrate noted on CXR to RUL in ED * Pt afebrile * No leukocytosis * Rocephin and azithromycin given in ED x 1 * Add procalcitonin, respiratory panel to assess for viral pneumonia * Start Zosyn 3.375 q8h IVPB for broader gram neg coverage. * Low threshold to add gram pos and/or double gram neg coverage pending clinical course * Duoneb q4h PRN * O2 PRN to keep sats above 90% * Plan to repeat CXR in 48 hrs * OPEP/Guaifenesin BID for sputum mobilization (3) Vertigo: Assessment and Plan: SUBACUTE * Continue home PRN meclizine (4) HFrEF (heart failure with reduced ejection fraction): Assessment and Plan: CHRONIC * Hx of 20-25% LVEF on echo * Hold home furosemide & Entresto d/t sepsis/hypotension and IVF administration * 2D Echo now * daily weight/strict I&O * consider cardiology consult pending clinical course (5) Hypothyroidism: Assessment and Plan: CHRONIC * continue home levothyroxine * TSH severely subtherapeutic during last admission in November * repeat TSH in AM (6) COPD (chronic obstructive pulmonary disease) with emphysema: Assessment and Plan: CHRONIC * No clinical concern for copd exacerbation at this time * Monitor (7) HTN (hypertension): Assessment and Plan: CHRONIC * Hold home antihypertensives for now d/t hypotension/sepsis
[2023-03-03] MEDS: 0.9 % SODIUM CHLORIDE 1,000 ML 1000 ML IV (14:29)
[2023-03-03 14:48] LABS: Adenovirus NOT DETECTED (NOT DETECTE); Bordetella parapertussis NOT DETECTED (NOT DETECTE); Coronavirus 229E NOT DETECTED (NOT DETECTE); Coronavirus HKU1 NOT DETECTED (NOT DETECTE); Coronavirus NL63 NOT DETECTED (NOT DETECTE); Coronavirus OC43 NOT DETECTED (NOT DETECTE); Human Metapneumovirus NOT DETECTED (NOT DETECTE); Human Rhinovirus/Enterovirus NOT DETECTED (NOT DETECTE); Influenza A NOT DETECTED (NOT DETECTE); Influenza B NOT DETECTED (NOT DETECTE); Mycoplasma pneumoniae NOT DETECTED (NOT DETECTE); Parainfluenza Virus 1 NOT DETECTED (NOT DETECTE); Parainfluenza Virus 2 NOT DETECTED (NOT DETECTE); Parainfluenza Virus 3 NOT DETECTED (NOT DETECTE); Parainfluenza Virus 4 NOT DETECTED (NOT DETECTE); Respiratory Syncytial Virus NOT DETECTED (NOT DETECTE); SARS-CoV-2 NOT DETECTED (NOT DETECTE)
[2023-03-03 15:09] LABS: D Dimer 4.92 mg/L FEU (<=0.59)
--- NOTE | 2023-03-03 15:11 | CT_ITS ---
The [address] [address] Patient Name: CORKY DUENAS MRN: [id number] date: 1950 Sex: M Assigned Patient Location: MS Current Patient Location: MS Accession/Order Number: [id number] Exam Date: 03/03/2023 15:41 Report Date: 03/03/2023 16:27 At the request of: JAYESH STUART Procedure: CT angio chest EXAM: CT angio chest HISTORY: tachycardia, tachypnea, leg swelling, r/o PE COMPARISON: XR chest 03/03/2023 TECHNIQUE: Thin section transaxial slices were acquired through the chest with intravenous contrast per PE protocol. Coronal and sagittal reconstructed images were reviewed. FINDINGS: PULMONARY ARTERIES: There is good opacification of the pulmonary vasculature. No pulmonary arterial filling defects are present. VASCULATURE: No aneurysm. Mild atherosclerotic calcifications of thoracic aorta. LUNGS/AIRWAYS: There is large airspace consolidative opacity in the right upper lobe with air bronchograms. Additionally, there are multiple scattered small patchy airspace opacities throughout both lungs. There are peribronchial thickening in bilateral lower lobes There are mild centrilobular emphysematous changes in bilateral upper lobes.. The central airways are patent. PLEURAL CAVITY: Mild to moderate bilateral pleural effusion, right more than left. No pneumothorax. HEART/PERICARDIUM: The heart is normal in size. No pericardial effusion. Multilead cardiac pacemaker is noted. MEDIASTINAL/HILAR LYMPH NODES: There are a few prominent mediastinal and right hilar lymph nodes, largest in precarinal region with 1.3 cm in short axis CHEST WALL/AXILLA/LOWER NECK: Normal. VISUALIZED UPPER ABDOMEN: No acute abnormality. Again seen are liver cysts. Status post cholecystectomy. BONES: No acute process.. CT/CT angio chest IMPRESSION: 1. No evidence of pulmonary embolism. 2. Large consolidative opacity in right upper lobe and multiple scattered small patchy airspace opacities throughout bilateral lungs with peribronchial thickening in lower lobes. Bilateral moderate pleural effusion, right more than left. Prominent mediastinal and right hilar lymph nodes. Findings are consistent with multifocal pneumonia. Recommend follow-up to resolution. Electronically authenticated by: YUDELKA UNLU Date: 03/03/2023 16:27
[2023-03-03 15:22] LABS: Lactate/Lactic Acid 2.7 mmol/L (0.4-2.0)
[2023-03-03] MEDS: GUAIFENESIN 600 MG TAB.ER.12H PO ×2 (15:34→21:48)
[2023-03-03 15:42] LABS: PROCALCITONIN 0.07 ng/mL (0.00-0.50)
[2023-03-03] MEDS: PIPERACILLIN SODIUM/TAZOBACTAM 3.375 GM in 0.9 % SODIUM CHLORIDE 50 ML IV (17:47)
[2023-03-03] MEDS: ENOXAPARIN SODIUM 40 MG/0.4 ML SYRINGE SUBQ (18:01)
[2023-03-03 18:06] LABS: Anion Gap 14.9; BUN Creatinine Ratio 9.9; Calcium 7.8 mg/dL (8.5-10.1); Carbon Dioxide 24.2 mmol/L (21.0-32.0); Chloride 105 mmol/L (98-107); Estimated GFR (African America 45 (>=60); Estimated GFR (Non-African Ame 37 (>=60); Glucose 96 mg/dL (74-106); Potassium 4.1 mmol/L (3.5-5.1); Sodium 140 mmol/L (136-145)
[2023-03-03 18:10] LABS: Lactate/Lactic Acid 3.1 mmol/L (0.4-2.0)
[2023-03-03] MEDS: FUROSEMIDE 40 MG/4 ML VIAL IVP (18:20)
[2023-03-03 21:21] LABS: Lactate/Lactic Acid 1.8 mmol/L (0.4-2.0)
[2023-03-03] MEDS: MECLIZINE HCL 12.5 MG TABLET 25 MG PO (21:48)
[2023-03-03] MEDS: ACETAMINOPHEN 325 MG TABLET 650 MG PO (22:30)
[2023-03-04] VITALS (54 sets, daily range): BP systolic 84–110; BP diastolic 61–82; PULSE 74–101; RESP 0–27; TEMP 36.4; O2SAT 81–100
[2023-03-04] MEDS: PIPERACILLIN SODIUM/TAZOBACTAM 3.375 GM in 0.9 % SODIUM CHLORIDE 50 ML IV ×3 (01:16→17:11)
--- NOTE | 2023-03-04 04:00 | XR_ITS ---
The [address] [address] Patient Name: CORKY DUENAS MRN: [id number] date: 1950 Sex: M Assigned Patient Location: ICU Current Patient Location: ICU Accession/Order Number: [id number] Exam Date: 03/04/2023 05:30 Report Date: 03/04/2023 06:28 At the request of: JAYESH STUART Procedure: XR chest 1V EXAMINATION: XR chest 1V HISTORY: SOB COMPARISON: XR chest 02/23/2023, CTA chest 02/23/2023 FINDINGS: LUNGS: Marked infiltrates/consolidation of right upper lobe and mild haziness throughout the lungs. VASCULATURE: No increased pulmonary vasculature. PLEURA: Known moderate size bilateral pleural effusions, but not visible on today's study. CARDIAC: No cardiomegaly or cardiac silhouette abnormality. MEDIASTINUM: No visible mass or adenopathy. BONES: No fracture or visible bone lesion. OTHER: Stable cardiac pacer. XR/XR chest 1V IMPRESSION: 1. Interval increase in multifocal infiltrates favoring pneumonia; overlying pulmonary edema cannot be excluded. 2. While not visible on today's chest x-ray, yesterday's CTA Chest showed moderate bilateral pleural effusions. Electronically authenticated by: YAJAIRA MISHRA Date: 03/04/2023 06:28
[2023-03-04 04:46] LABS: Basophils Absolute Auto 0.1 10^3/uL (0.0-0.1); Basophils Percent Auto 1.5 % (0.2-2.0); Eosinophils Absolute Auto 0.1 10^3/uL (0.0-0.7); Hematocrit 38.1 % (42.0-54.0); Hemoglobin 11.8 g/dL (14.0-18.0); Immature Granulocytes Abs Auto 0.09 10^3/uL (0.00-0.03); Immature Granulocytes Pct Auto 1.5 % (0.0-0.5); Lymphocytes Absolute Auto 1.1 10^3/uL (1.2-3.8); Lymphocytes Percent Auto 18.6 % (20.5-60.0); Mean Corpuscular Hemoglobin 32.4 pg (25.9-34.0); Mean Corpuscular Volume 104.7 fL (80.0-94.0); Mean Platelet Volume 10.4 fL (9.5-13.5); Monocytes Absolute Auto 0.2 10^3/uL (0.3-0.8); Monocytes Percent Auto 4.1 % (1.7-12.0); Neutrophils Absolute Auto 4.3 10^3/uL (1.4-6.5); Neutrophils Percent Auto 73.3 % (43.0-75.0); Platelet Count 240 10^3/uL (150-450); Red Blood Count 3.64 10^6/uL (4.70-6.10); Red Cell Distribution Width 16.4 % (11.0-15.0); White Blood Count 5.9 10^3/uL (4.0-11.0)
[2023-03-04 04:58] LABS: Alanine Aminotransferase 51 U/L (16-63); Albumin Globulin Ratio 0.6; Albumin Level 2.3 g/dL (3.4-5.0); Alkaline Phosphatase 104 U/L (46-116); Anion Gap 13.3; Aspartate Amino Transferase 51 U/L (15-37); BUN Creatinine Ratio 9.8; Bilirubin Total 1.2 mg/dL (0.2-1.0); Calcium 7.9 mg/dL (8.5-10.1); Carbon Dioxide 27.4 mmol/L (21.0-32.0); Chloride 105 mmol/L (98-107); Estimated GFR (African America 39 (>=60); Estimated GFR (Non-African Ame 32 (>=60); Globulin 4.1 g/dL; Glucose 96 mg/dL (74-106); Potassium 3.7 mmol/L (3.5-5.1); Sodium 142 mmol/L (136-145); Total Protein 6.4 g/dL (6.4-8.2)
[2023-03-04 05:06] LABS: Thyroid Stimulating Hormone 53.299 uIU/mL (0.358-3.740)
[2023-03-04] MEDS: MECLIZINE HCL 12.5 MG TABLET 25 MG PO ×3 (06:44→21:52)
[2023-03-04] MEDS: FUROSEMIDE 40 MG/4 ML VIAL IVP ×2 (06:45→17:11)
[2023-03-04] MEDS: LEVOTHYROXINE SODIUM 100 MCG TABLET 200 MCG PO (06:45)
[2023-03-04] MEDS: GUAIFENESIN 600 MG TAB.ER.12H PO ×2 (09:20→21:51)
--- NOTE | 2023-03-04 09:57 | CM.NOTE ---
Rounding with Dr. Luke, patient stated has seen cardiology at [facility] in past. Patient states primary care has been managing his heart. Continue to follow for discharge needs.
--- NOTE | 2023-03-04 10:03 | CM.NOTE ---
Addendum entered by Gilda Messer 03/04/23 10:10: ABOVE NOTE WAS ENTERED IN ERROR ON INCORRECT PATIENT. Original Note: Rounding with Dr. Luke, plan to set up for transfer to [facility] for cardiology as he has been in past.
--- NOTE | 2023-03-04 11:36 | PM.PN ---
Progress Note: Subjective Subjective Interval history: Patient stable this am. Reports fatigue and weakness. Mild SOB and cough. Echo showed EF 10% and on IV lasix. BP improved and stable. Did not need to start Levophed overnight. Afebrile. No chest pain or palpitations. Normal appetite and no emesis or diarrhea. Exam Constitutional Vital Signs, click to edit/add: Last Vital Signs Temp 97.6 F 03/04/23 07:44 Pulse 91 H 03/04/23 07:44 Resp 20 03/04/23 07:44 BP 94/74 03/04/23 07:44 Pulse Ox 100 03/04/23 11:30 O2 Del Method Room Air 03/04/23 11:30 Documenting provider has reviewed patient's vital signs: yes Common normals: no apparent distress, oriented x3 and alert HENMT Common normals: normocephalic Respiratory Common normals: normal respiratory effort and clear to auscultation bilaterally Cardio Common normals: regular rate, regular rhythm, no gallops, no murmurs and no rub GI Common normals: Normal to inspection, nondistended, normoactive bowel sounds present and non-tender Extremity Common normals: no pedal edema Progress Note: Objective Labs Labs: Short CBC 03/04/23 Range/Units 03:58 WBC 5.9 (4.0-11.0) 10^3/uL Hgb 11.8 L (14.0-18.0) g/dL Hct 38.1 L (42.0-54.0) % Plt Count 240 (150-450) 10^3/uL BMP 03/03/23 03/04/23 17:30 03:58 Sodium 140 142 Potassium 4.1 3.7 Chloride 105 105 Carbon Dioxide 24.2 27.4 BUN 18.0 20.0 H Creatinine 1.82 H 2.05 H Glucose 96 96 Calcium 7.8 L 7.9 L Liver Function 03/04/23 Range/Units 03:58 Total Bilirubin 1.2 H (0.2-1.0) mg/dL AST 51 H (15-37) U/L ALT 51 (16-63) U/L Alkaline Phosphatase 104 (46-116) U/L Albumin 2.3 L (3.4-5.0) g/dL Progress Note: A&P Assessment and Plan (1) Severe sepsis with septic shock: (2) Right upper lobe pneumonia: (3) Acute on chronic HFrEF (heart failure with reduced ejection fraction): (4) COPD (chronic obstructive pulmonary disease) with emphysema: (5) CAD (coronary artery disease): (6) HTN (hypertension): Plan Patient improved overnight and BP stable. Continue zosyn for pneumonia. Continue IV lasix for CHF. Use breathing treatments PRN. Continue PT/OT for weakness. Blood culture showed K. pneumonia and await sensitivity.
--- NOTE | 2023-03-04 13:31 | PC.NURSE ---
0930. Dr. Hill called to update nursing he would not be up to see pt. Pt EF was 25% and is now 10% and this is not a huge drop based on what the patient has going on. Voiced pt needs medical condition treated. Updated Dr. Luke.
--- NOTE | 2023-03-04 13:53 | CM.NOTE ---
Discussed with pt regarding PT recommendations and HH services at discharge. Pt in agreement to HH services, discussed with pt 5 star Medicare rating and list. Pt would like to go with [facility]. Clinical sent to [facility] for new referral.
--- NOTE | 2023-03-04 15:13 | CM.NOTE ---
Important Message From Medicare discussed with pt, pt verbalizes understanding and signs paper. Original given to pt and copy placed on pt's chart.
[2023-03-04] MEDS: ENOXAPARIN SODIUM 40 MG/0.4 ML SYRINGE SUBQ (17:11)
[2023-03-05] VITALS (33 sets, daily range): BP systolic 78–107; BP diastolic 38–82; PULSE 80–94; RESP 0–22; TEMP 36.3–36.5; O2SAT 90–100
[2023-03-05] MEDS: PIPERACILLIN SODIUM/TAZOBACTAM 3.375 GM in 0.9 % SODIUM CHLORIDE 50 ML IV ×4 (00:07→23:26)
--- NOTE | 2023-03-05 04:00 | XR_ITS ---
The [address] [address] Patient Name: CORKY DUENAS MRN: [id number] date: 1950 Sex: M Assigned Patient Location: ICU Current Patient Location: ICU Accession/Order Number: [id number] Exam Date: 03/05/2023 04:45 Report Date: 03/05/2023 06:54 At the request of: JAYESH STUART Procedure: XR chest 1V EXAMINATION: XR chest 1V HISTORY: SOB COMPARISON: XR chest 03/04/2023 FINDINGS: LUNGS: Large dense opacity within right lung apex. Mild haziness within right lung base. Left lung is clear. VASCULATURE: No increased pulmonary vasculature. PLEURA: No pneumothorax, effusion, or pleural thickening. CARDIAC: No cardiomegaly or cardiac silhouette abnormality. MEDIASTINUM: No visible mass or adenopathy. BONES: No fracture or visible bone lesion. OTHER: Stable cardiac pacer. XR/XR chest 1V IMPRESSION: 1. Large right lung apex infiltrate versus mass; stable to slightly smaller and less dense. 2. Decrease in right lung base infiltrates and clearing of left lung since prior study. Electronically authenticated by: YAJAIRA MISHRA Date: 03/05/2023 06:54
[2023-03-05 05:30] LABS: Basophils Absolute Auto 0.1 10^3/uL (0.0-0.1); Basophils Percent Auto 1.5 % (0.2-2.0); Eosinophils Absolute Auto 0.1 10^3/uL (0.0-0.7); Eosinophils Percent Auto 1.8 % (0.9-7.0); Immature Granulocytes Abs Auto 0.06 10^3/uL (0.00-0.03); Lymphocytes Absolute Auto 1.2 10^3/uL (1.2-3.8); Lymphocytes Percent Auto 20.5 % (20.5-60.0); Mean Corpuscular Hemoglobin 32.3 pg (25.9-34.0); Mean Corpuscular Volume 104.5 fL (80.0-94.0); Mean Platelet Volume 10.3 fL (9.5-13.5); Monocytes Absolute Auto 0.3 10^3/uL (0.3-0.8); Monocytes Percent Auto 4.5 % (1.7-12.0); Neutrophils Absolute Auto 4.3 10^3/uL (1.4-6.5); Neutrophils Percent Auto 70.7 % (43.0-75.0); Platelet Count 252 10^3/uL (150-450); Red Blood Count 4.02 10^6/uL (4.70-6.10); Red Cell Distribution Width 16.4 % (11.0-15.0)
[2023-03-05 05:37] LABS: Alanine Aminotransferase 47 U/L (16-63); Albumin Globulin Ratio 0.6; Albumin Level 2.6 g/dL (3.4-5.0); Alkaline Phosphatase 105 U/L (46-116); Anion Gap 11.7; Aspartate Amino Transferase 40 U/L (15-37); BUN Creatinine Ratio 8.7; Bilirubin Total 1.2 mg/dL (0.2-1.0); Calcium 8.1 mg/dL (8.5-10.1); Carbon Dioxide 30.6 mmol/L (21.0-32.0); Chloride 103 mmol/L (98-107); Estimated GFR (African America 34 (>=60); Estimated GFR (Non-African Ame 28 (>=60); Globulin 4.4 g/dL; Glucose 87 mg/dL (74-106); Potassium 3.3 mmol/L (3.5-5.1); Sodium 142 mmol/L (136-145)
[2023-03-05] MEDS: LEVOTHYROXINE SODIUM 100 MCG TABLET 200 MCG PO (06:42)
[2023-03-05] MEDS: FUROSEMIDE 40 MG/4 ML VIAL IVP ×2 (06:42→18:13)
[2023-03-05] MEDS: MECLIZINE HCL 12.5 MG TABLET 25 MG PO ×3 (06:43→21:02)
[2023-03-05] MEDS: GUAIFENESIN 600 MG TAB.ER.12H PO ×2 (08:11→20:42)
--- NOTE | 2023-03-05 10:44 | PT.DAILY ---
Physical Therapy Daily Note PT Daily Note/Assess Start: 03/05/23 10:39 Freq: Status: Active Protocol: Document 03/05/23 10:39 ELYSE (Rec: 03/05/23 10:44 ELYSE [id number]) Physical Therapy Daily Note/Assessment Time In/Time Out Time In 09:40 Time Out 09:53 Pain In Pain N/A Pain Out Pain N/A Subjective Subjective Pt sitting in BS chair upon arrival. Willing to participate with PT this morning. On room air Spo2 94% prior to session. Therapeutic Exercise Time Therapeutic Exercise Minutes (minutes) 3 Therapeutic Exercise Units 0 Therapeutic Exercise Treatment Therapeutic Exercise Treatment Standing HR, marches, HS curls and hip flexion 10x ea at RW. Pt's SpO2 drops to 84% with this but finger reader was not on secure - pt sits and this is adjusted and O2 jumps up to 92% quickly. Therapeutic Activity Time Therapeutic Activity Minutes (minutes) 8 Therapeutic Activity Units 1 Therapeutic Activity Treatment Chair Transfer Ability Standby Assistance Therapeutic Activity Comments Sit>stand 5x from BS chair without increased fatigue. Pt amb 120' with RW, SBA with assist for IV pole. Minimal dizziness reported with amb. Pt returned to room for seated rest break. After rest break pt performs standing bilat LE strengthening ex using RW for support. O2 does drop but once finger reader is adjusted during rest break it jumps up to 92%. Pt remains in BS chair with call light within reach and needs met. Total Physical Therapy Time Total Therapy Minutes 11 Total Physical Therapy Units 1 Summary Daily Note Summary Improving gait endurance and transfer ability. Cont to have minimal dizziness with amb.
--- NOTE | 2023-03-05 11:07 | PM.PN ---
Progress Note: Subjective Subjective Interval history: Patient doing well this am. Mild SOB and cough. BP improved and stable. Remains on IV lasix and edema stable. Continued weakness and working with PT. Refuses SNF. Afebrile. No chest pain or palpitations. Normal appetite and no emesis or diarrhea. Exam Constitutional Vital Signs, click to edit/add: Last Vital Signs Temp 97.7 F 03/05/23 07:13 Pulse 83 03/05/23 10:00 Resp 19 03/05/23 07:00 BP 107/82 03/05/23 08:00 Pulse Ox 97 03/05/23 10:48 O2 Del Method Room Air 03/05/23 10:48 Documenting provider has reviewed patient's vital signs: yes Common normals: no apparent distress, oriented x3 and alert HENMT Common normals: normocephalic Eye Common normals: PERRL and EOMs intact bilaterally Respiratory Common normals: normal respiratory effort and clear to auscultation bilaterally Cardio Common normals: regular rate, regular rhythm, no gallops, no murmurs and no rub GI Common normals: Normal to inspection, nondistended, normoactive bowel sounds present and non-tender Extremity Common normals: no pedal edema Progress Note: Objective Labs Labs: Short CBC 03/05/23 Range/Units 04:22 WBC 6.0 (4.0-11.0) 10^3/uL Hgb 13.0 L (14.0-18.0) g/dL Hct 42.0 (42.0-54.0) % Plt Count 252 (150-450) 10^3/uL BMP 03/05/23 04:22 Sodium 142 Potassium 3.3 L Chloride 103 Carbon Dioxide 30.6 BUN 20.0 H Creatinine 2.30 H Glucose 87 Calcium 8.1 L Liver Function 03/05/23 Range/Units 04:22 Total Bilirubin 1.2 H (0.2-1.0) mg/dL AST 40 H (15-37) U/L ALT 47 (16-63) U/L Alkaline Phosphatase 105 (46-116) U/L Albumin 2.6 L (3.4-5.0) g/dL Pulse Oximetry Attestation: I have reviewed the pertinent pulse oximetry results. Progress Note: A&P Assessment and Plan (1) Severe sepsis with septic shock: (2) Right upper lobe pneumonia: (3) Acute on chronic HFrEF (heart failure with reduced ejection fraction): (4) COPD (chronic obstructive pulmonary disease) with emphysema: (5) CAD (coronary artery disease): (6) HTN (hypertension): Plan Patient improved and vitals stable. Transfer to med/surg. Continue antibiotics. Continue IV lasix and monitor labs. Continue PT/OT. If continues to improve possibly home with home health in am.
--- NOTE | 2023-03-05 11:39 | CM.NOTE ---
Rounds made with Dr. Luke, pt to transfer to med-surg today. Pt still in agreement with at discharge. Discussed with pt [facility] has accepted him when medically stable for discharge.
[2023-03-05] MEDS: ENOXAPARIN SODIUM 40 MG/0.4 ML SYRINGE SUBQ (16:35)
[2023-03-06] VITALS (20 sets, daily range): BP systolic 77–104; BP diastolic 52–72; PULSE 68–88; RESP 16–18; TEMP 36.4–36.6; O2SAT 90–98
[2023-03-06 05:07] LABS: Basophils Absolute Auto 0.1 10^3/uL (0.0-0.1); Basophils Percent Auto 1.5 % (0.2-2.0); Eosinophils Absolute Auto 0.1 10^3/uL (0.0-0.7); Eosinophils Percent Auto 1.7 % (0.9-7.0); Hematocrit 41.8 % (42.0-54.0); Hemoglobin 13.2 g/dL (14.0-18.0); Immature Granulocytes Abs Auto 0.06 10^3/uL (0.00-0.03); Immature Granulocytes Pct Auto 1.1 % (0.0-0.5); Lymphocytes Absolute Auto 1.1 10^3/uL (1.2-3.8); Lymphocytes Percent Auto 20.2 % (20.5-60.0); Mean Corpuscular HGB Conc 31.6 g/dL (29.9-35.2); Mean Corpuscular Hemoglobin 32.2 pg (25.9-34.0); Mean Platelet Volume 10.3 fL (9.5-13.5); Monocytes Absolute Auto 0.3 10^3/uL (0.3-0.8); Monocytes Percent Auto 5.7 % (1.7-12.0); Neutrophils Absolute Auto 3.7 10^3/uL (1.4-6.5); Neutrophils Percent Auto 69.8 % (43.0-75.0); Platelet Count 210 10^3/uL (150-450); Red Cell Distribution Width 16.4 % (11.0-15.0); White Blood Count 5.3 10^3/uL (4.0-11.0)
[2023-03-06] MEDS: LEVOTHYROXINE SODIUM 100 MCG TABLET 200 MCG PO (05:32)
[2023-03-06] MEDS: MECLIZINE HCL 12.5 MG TABLET 25 MG PO ×3 (05:33→21:07)
[2023-03-06 05:40] LABS: Alanine Aminotransferase 43 U/L (16-63); Albumin Globulin Ratio 0.6; Albumin Level 2.6 g/dL (3.4-5.0); Alkaline Phosphatase 98 U/L (46-116); Anion Gap 12.9; Aspartate Amino Transferase 42 U/L (15-37); BUN Creatinine Ratio 8.9; Bilirubin Total 1.2 mg/dL (0.2-1.0); Calcium 7.9 mg/dL (8.5-10.1); Carbon Dioxide 32.3 mmol/L (21.0-32.0); Chloride 100 mmol/L (98-107); Estimated GFR (African America 37 (>=60); Estimated GFR (Non-African Ame 31 (>=60); Globulin 4.1 g/dL; Glucose 83 mg/dL (74-106); Potassium 3.2 mmol/L (3.5-5.1); Sodium 142 mmol/L (136-145); Total Protein 6.7 g/dL (6.4-8.2)
[2023-03-06] MEDS: FUROSEMIDE 40 MG/4 ML VIAL IVP (05:49)
[2023-03-06] MEDS: GUAIFENESIN 600 MG TAB.ER.12H PO ×2 (08:09→21:07)
[2023-03-06] MEDS: PIPERACILLIN SODIUM/TAZOBACTAM 3.375 GM in 0.9 % SODIUM CHLORIDE 50 ML IV ×2 (08:09→17:18)
--- NOTE | 2023-03-06 09:50 | CM.NOTE ---
Rounding with Dr. Luke. Pt. states feels dizzy today and no appetite. No anticipated discharge today. Discussed medications adjustments. Dr. Luke and GRECIA Mendez discussed concerns with going home with home health. Dr. Luke asked patient if he would be willing to go to rehab, patient states not really. Continue to monitor PT and OT evals and potential change in current discharge plan once medication adjustments are done.
--- NOTE | 2023-03-06 10:31 | CM.NOTE ---
Dr. Luke feels pt needs skilled therapy at discharge, discussed again with pt. Pt states My concern is that I live in [employer] housing in [place] and I could lose my home. Pt is in agreement if Case Management could reach out to manager med surg at facility to make sure the apartment could be held while pt went through skilled rehab. Message left with housing development.
--- NOTE | 2023-03-06 10:47 | PT.DAILY ---
Physical Therapy Daily Note PT Daily Note/Assess Start: 03/05/23 10:39 Freq: Status: Active Protocol: Document 03/06/23 10:43 ELYSE (Rec: 03/06/23 10:47 ELYSE [id number]) Physical Therapy Daily Note/Assessment Time In/Time Out Time In 10:20 Time Out 10:34 Pain In Pain N/A Pain Out Pain N/A Subjective Subjective Pt supine upon arrival. Agrees to PT. reports moderate dizziness today. Therapeutic Exercise Time Therapeutic Exercise Minutes (minutes) 3 Therapeutic Exercise Units 0 Therapeutic Exercise Treatment Therapeutic Exercise Treatment Bilat LE strengthening ex at EOB sitting unsupported - 10x ea. Therapeutic Activity Time Therapeutic Activity Minutes (minutes) 8 Therapeutic Activity Units 1 Therapeutic Activity Treatment Bed Mobility Ability Standby Assistance Chair Transfer Ability Contact Guard Assist Therapeutic Activity Comments Supine>sit SBA with increased time to complete. Completes seated bilat le strengthening ex while sitting EOB unsupported without LOB. Sit> stand to RW 3x to improve functional strength. On 3rd attempt to stand before amb pt does have posterior LOB and sits back down on Bed. reports dizziness but this is nothing new. Pt reports being OK to amb now. Sit>stand CGA this time and amb 80' in [place] with RW and CGA with assist for IV pole. Slower rebecca noticed today - possibly apprehensive of falling. Returned to supine upon completion. Pt is able to complete bed mobs SBA with extra time. CAll light in reach and bed alarm set. Total Physical Therapy Time Total Therapy Minutes 11 Total Physical Therapy Units 1 Summary Daily Note Summary Min decrease in gait endurance and standing balance today. 1x posterior LOB with pt landing on bed. SNF vs pending progress.
--- NOTE | 2023-03-06 11:45 | PM.PN ---
Progress Note: Subjective Subjective Interval history: Patient not doing well this am. C/o lightheadedness and weakness when up and moving. Feels unsteady. Mild SOB and cough. BP remains low but stable. Remains on IV lasix and edema stable. Working with PT. Considering SNF. Afebrile. No chest pain or palpitations. Normal appetite and no emesis or diarrhea. Exam Constitutional Vital Signs, click to edit/add: Last Vital Signs Temp 97.7 F 03/06/23 05:36 Pulse 84 03/06/23 10:10 Resp 16 03/06/23 05:36 BP 92/65 03/06/23 05:36 Pulse Ox 95 03/06/23 11:25 O2 Del Method Room Air 03/06/23 11:25 Documenting provider has reviewed patient's vital signs: yes Common normals: no apparent distress, oriented x3 and alert HENMT Common normals: normocephalic Eye Common normals: PERRL and EOMs intact bilaterally Respiratory Common normals: normal respiratory effort and clear to auscultation bilaterally Cardio Common normals: regular rate, no gallops, no murmurs and no rub GI Common normals: Normal to inspection, nondistended, normoactive bowel sounds present and non-tender Extremity Common normals: no pedal edema Progress Note: Objective Labs Labs: Short CBC 03/06/23 Range/Units 04:42 WBC 5.3 (4.0-11.0) 10^3/uL Hgb 13.2 L (14.0-18.0) g/dL Hct 41.8 L (42.0-54.0) % Plt Count 210 (150-450) 10^3/uL BMP 03/06/23 04:42 Sodium 142 Potassium 3.2 L Chloride 100 Carbon Dioxide 32.3 H BUN 19.0 H Creatinine 2.13 H Glucose 83 Calcium 7.9 L Liver Function 03/06/23 Range/Units 04:42 Total Bilirubin 1.2 H (0.2-1.0) mg/dL AST 42 H (15-37) U/L ALT 43 (16-63) U/L Alkaline Phosphatase 98 (46-116) U/L Albumin 2.6 L (3.4-5.0) g/dL Progress Note: A&P Assessment and Plan (1) Severe sepsis with septic shock: (2) Right upper lobe pneumonia: (3) Acute on chronic HFrEF (heart failure with reduced ejection fraction): (4) COPD (chronic obstructive pulmonary disease) with emphysema: (5) CAD (coronary artery disease): (6) HTN (hypertension): Plan BP remains low and patient very lightheaded when up and moving. Likely combination of EF 10% and low BP. Appears low BP chronic and not strictly related to sepsis. Renal function stable. Stop IV lasix and resume PO lasix in am. Will need to stop entresto due to hypotension. Resume coreg and add aldactone. Add midodrine for low BP. Continue PT/OT. Patient considering SNF and would benefit from strengthening.
[2023-03-06] MEDS: CARVEDILOL 6.25 MG TABLET PO ×2 (12:09→21:07)
[2023-03-06] MEDS: MIDODRINE HCL 5 MG TABLET 10 MG PO ×2 (12:09→17:18)
[2023-03-06] MEDS: SPIRONOLACTONE 25 MG TABLET PO (12:09)
[2023-03-06 12:18] LABS: A. calcoaceticus-baumannii Cpx NOT DETECTED (NOT DETECTE); Bacteroides fragilis NOT DETECTED (NOT DETECTE); Candida albicans NOT DETECTED (NOT DETECTE); Candida auris NOT DETECTED (NOT DETECTE); Candida glabrata NOT DETECTED (NOT DETECTE); Candida krusei NOT DETECTED (NOT DETECTE); Candida parapsilosis NOT DETECTED (NOT DETECTE); Candida tropicalis NOT DETECTED (NOT DETECTE); Cryptococcus neoformans/gattii NOT DETECTED (NOT DETECTE); Enterobacter cloacae complex NOT DETECTED (NOT DETECTE); Enterococcus faecalis NOT DETECTED (NOT DETECTE); Enterococcus faecium NOT DETECTED (NOT DETECTE); Haemophilus influenzae NOT DETECTED (NOT DETECTE); Klebsiella aerogenes NOT DETECTED (NOT DETECTE); Listeria monocytogenes NOT DETECTED (NOT DETECTE); Neisseria meningitidis NOT DETECTED (NOT DETECTE); Proteus spp. NOT DETECTED (NOT DETECTE); Pseudomonas aeruginosa NOT DETECTED (NOT DETECTE); Salmonella spp. NOT DETECTED (NOT DETECTE); Serratia marcescens NOT DETECTED (NOT DETECTE); Staphylococcus epidermidis NOT DETECTED (NOT DETECTE); Staphylococcus lugdunensis NOT DETECTED (NOT DETECTE); Staphylococcus spp. NOT DETECTED (NOT DETECTE); Stenotrophomonas maltophilia NOT DETECTED (NOT DETECTE); Streptococcus agalactiae NOT DETECTED (NOT DETECTE); Streptococcus pneumoniae NOT DETECTED (NOT DETECTE); Streptococcus pyogenes NOT DETECTED (NOT DETECTE); Streptococcus spp. NOT DETECTED (NOT DETECTE)
[2023-03-06 12:19] LABS: CTX-M NOT DETECTED (NOT DETECTE); IMP NOT DETECTED (NOT DETECTE); KPC NOT DETECTED (NOT DETECTE); NDM NOT DETECTED (NOT DETECTE); mcr-1 NOT DETECTED (NOT DETECTE)
[2023-03-06 12:20] LABS: OXA-48-like NOT DETECTED (NOT DETECTE); VIM NOT DETECTED (NOT DETECTE)
[2023-03-06 12:21] LABS: Enterobacterales DETECTED (NOT DETECTE); Klebsiella pneumoniae group DETECTED (NOT DETECTE)
[2023-03-06 12:22] LABS: Source BLOOD
--- NOTE | 2023-03-06 12:51 | CM.NOTE ---
Spoke with pt again regarding discharge planning, pt in agreement to look into skilled therapy at discharge and would like to go to [facility]. No call back at this time from [facility]. Clinical sent to [facility].
--- NOTE | 2023-03-06 15:22 | CM.NOTE ---
Attempted to call [facility] housing again in [place] d/t pt's concern of loosing apartment if he would go to skilled facility. No answer. [facility] can accept pt and will start precert.
[2023-03-06] MEDS: ENOXAPARIN SODIUM 40 MG/0.4 ML SYRINGE SUBQ (17:18)
[2023-03-07] VITALS (22 sets, daily range): BP systolic 83–98; BP diastolic 47–58; PULSE 64–83; RESP 18–20; TEMP 36.4–36.9; O2SAT 91–96
[2023-03-07] MEDS: PIPERACILLIN SODIUM/TAZOBACTAM 3.375 GM in 0.9 % SODIUM CHLORIDE 50 ML IV ×3 (00:23→15:02)
--- NOTE | 2023-03-07 05:00 | XR_ITS ---
The [address] [address] Patient Name: CORKY DUENAS MRN: [id number] date: 1950 Sex: M Assigned Patient Location: MS Current Patient Location: MS Accession/Order Number: [id number] Exam Date: 03/07/2023 05:30 Report Date: 03/07/2023 05:59 At the request of: SHAIKH KENNETH Procedure: XR chest 1V EXAMINATION: XR chest 1V HISTORY: SOB COMPARISON: XR chest 03/05/2023, 03/04/2023, 03/03/2023 FINDINGS: LUNGS: Large dense opacity filling the right lung apex. Clearing of right lung base and left lung. VASCULATURE: No increased pulmonary vasculature. PLEURA: No pneumothorax, effusion, or pleural thickening. CARDIAC: No cardiomegaly or cardiac silhouette abnormality. MEDIASTINUM: No visible mass or adenopathy. BONES: No fracture or visible bone lesion. OTHER: Stable cardiac pacer. XR/XR chest 1V IMPRESSION: 1. Large right apical opacity appears to have increased in size slightly, but is also slightly less dense than previously seen. 2. Clearing of right lower lung infiltrates. Electronically authenticated by: YAJAIRA MISHRA Date: 03/07/2023 05:59
[2023-03-07] MEDS: MIDODRINE HCL 5 MG TABLET 10 MG PO ×3 (05:16→17:07)
[2023-03-07] MEDS: MECLIZINE HCL 12.5 MG TABLET 25 MG PO ×3 (05:16→21:00)
[2023-03-07 05:29] LABS: Basophils Absolute Auto 0.1 10^3/uL (0.0-0.1); Basophils Percent Auto 1.4 % (0.2-2.0); Eosinophils Absolute Auto 0.1 10^3/uL (0.0-0.7); Eosinophils Percent Auto 2.3 % (0.9-7.0); Hematocrit 38.4 % (42.0-54.0); Immature Granulocytes Abs Auto 0.06 10^3/uL (0.00-0.03); Immature Granulocytes Pct Auto 1.1 % (0.0-0.5); Lymphocytes Absolute Auto 1.2 10^3/uL (1.2-3.8); Lymphocytes Percent Auto 20.8 % (20.5-60.0); Mean Corpuscular HGB Conc 31.3 g/dL (29.9-35.2); Mean Corpuscular Hemoglobin 32.3 pg (25.9-34.0); Mean Corpuscular Volume 103.5 fL (80.0-94.0); Mean Platelet Volume 10.7 fL (9.5-13.5); Monocytes Absolute Auto 0.3 10^3/uL (0.3-0.8); Monocytes Percent Auto 5.5 % (1.7-12.0); Neutrophils Absolute Auto 3.9 10^3/uL (1.4-6.5); Neutrophils Percent Auto 68.9 % (43.0-75.0); Platelet Count 203 10^3/uL (150-450); Red Blood Count 3.71 10^6/uL (4.70-6.10); Red Cell Distribution Width 16.5 % (11.0-15.0); White Blood Count 5.7 10^3/uL (4.0-11.0)
[2023-03-07 05:51] LABS: Alanine Aminotransferase 43 U/L (16-63); Albumin Globulin Ratio 0.6; Albumin Level 2.4 g/dL (3.4-5.0); Alkaline Phosphatase 81 U/L (46-116); Aspartate Amino Transferase 51 U/L (15-37); BUN Creatinine Ratio 10.4; Carbon Dioxide 30.3 mmol/L (21.0-32.0); Chloride 102 mmol/L (98-107); Estimated GFR (African America 32 (>=60); Estimated GFR (Non-African Ame 27 (>=60); Glucose 105 mg/dL (74-106); Potassium 3.3 mmol/L (3.5-5.1); Sodium 141 mmol/L (136-145); Total Protein 6.4 g/dL (6.4-8.2)
[2023-03-07] MEDS: LEVOTHYROXINE SODIUM 100 MCG TABLET 200 MCG PO (06:19)
[2023-03-07] MEDS: POTASSIUM CHLORIDE 10 MEQ ER TABLET 40 MEQ PO (07:04)
[2023-03-07] MEDS: GUAIFENESIN 600 MG TAB.ER.12H PO ×2 (08:57→21:00)
[2023-03-07] MEDS: CARVEDILOL 6.25 MG TABLET PO ×2 (08:57→21:00)
--- NOTE | 2023-03-07 11:09 | REH.PTDLY ---
Physical Therapy Daily Note PT Daily Note/Assess Start: 03/05/23 10:39 Freq: Status: Active Protocol: Document 03/07/23 10:20 SERGIO (Rec: 03/07/23 11:09 SERGIO [id number]) Physical Therapy Daily Note/Assessment Time In 10:06 Time Out 10:20 Subjective Pt agreeable to therapy, sister in room. States they just took a little walk in room with RW and did ok. Therapeutic Exercise Minutes (minutes) 5 Therapeutic Exercise Units 0 Therapeutic Exercise Treatment Instructed in B LE seated exs bedside 10x ea with AP, LAQ, marching, and hip abd for improved strength. Therapeutic Activity Minutes (minutes) 9 Therapeutic Activity Units 1 Bed Mobility Ability Standby Assistance Chair Transfer Ability Standby Assistance Therapeutic Activity Comments Pt able to perform transfers in and out of bed SBA. sit to stand transfers CGA with no complaints of dizziness today. Pt reports he usually does no ambulate with AD at home. Trialed ambulation with no AD today for 50 ftx2 with pt taking standing rest break with ambulation due to LE fatigue and mild SOB, CGA-Min A as pt has 1 instance of unsteadiness on feet. SpO2 post rx is 99% on 1 finger, trialed another and it is 84% rising to 92% after 2 mins. Total Therapy Minutes 14 Total Physical Therapy Units 1 Daily Note Summary Progressed gait distance and with no AD today as this is what pt was prior to admission . Recommended pt at least use SC or have RW at home as he had 1 minor instance of imbalance, able to correct with CGA-Min A. Pt denies any complaints of pain with rx.
[2023-03-07] MEDS: LACTATED RINGER'S SOLUTION 1,000 ML 75 ML IV (11:40)
[2023-03-07] MEDS: ENOXAPARIN SODIUM 40 MG/0.4 ML SYRINGE SUBQ (16:13)
--- NOTE | 2023-03-07 23:44 | PM.IMPN1 ---
Progress Note: A&P Assessment and Plan (1) Severe sepsis with septic shock: Assessment and Plan: Stable hemodynamics. But still appears dry on exam. Started on IVF. D/c Lasix. c/w Zosyn. (2) Right upper lobe pneumonia: Assessment and Plan: Improving. on RA. c/w zosyn (3) Acute on chronic HFrEF (heart failure with reduced ejection fraction): Assessment and Plan: Appears dry on exam. Stop Lasix. Started on IVF. (4) COPD (chronic obstructive pulmonary disease) with emphysema: Assessment and Plan: no wheezing noted. Stable. (5) HTN (hypertension): Assessment and Plan: On Coreg. Stop Aldactone. Continue to hold entresto (6) BRYN (acute kidney injury): Assessment and Plan: Cr of 2.4 with baseline of 1.7 Start on IVF. Likely pre renal from sepsis and over diuresis. (7) CKD (chronic kidney disease) stage 4, GFR 15-29 ml/min: Assessment and Plan: Baseline Cr of 1.7, Cr is 2.4 likely pre renal as appears dry on exam. Stop lasix. Start on gentle IV hydration. Plan Monitor renal function and resp status closely while on IVF due to hx of CHF. Internal Medicine - PN: Subj Subjective Interval history: Seen and examined. No overnight events. On RA. Feels well and has no complaints to offer. Exam Constitutional Vital Signs, click to edit/add: Last Vital Signs Temp 98.4 F 03/07/23 21:10 Pulse 80 03/07/23 22:00 Resp 18 03/07/23 21:10 BP 89/56 03/07/23 21:10 Pulse Ox 94 L 03/07/23 21:10 O2 Del Method Room Air 03/07/23 21:10 Common normals: no apparent distress and oriented x3 General appearance: frail appearing Respiratory Common normals: normal respiratory effort, no use of accessory muscles and clear to auscultation bilaterally Effort & inspection: able to speak in complete sentences Cardio Common normals: regular rate, regular rhythm, S1 normal heart sound and S2 normal heart sound Neuro Common normals: oriented x3, moves all extremities and no focal motor deficits Internal Medicine - PN: Obj Da Labs Labs: Laboratory Results - last 24 hr 03/07/23 04:25 WBC 5.7 RBC 3.71 L Hgb 12.0 L Hct 38.4 L MCV 103.5 H MCH 32.3 MCHC 31.3 RDW 16.5 H Plt Count 203 MPV 10.7 Neut % (Auto) 68.9 Lymph % (Auto) 20.8 [place] % (Auto) 5.5 Eos % (Auto) 2.3 Baso % (Auto) 1.4 Neut # (Auto) 3.9 Lymph # (Auto) 1.2 [place] # (Auto) 0.3 Eos # (Auto) 0.1 Baso # (Auto) 0.1 Abs Immat Gran (auto) 0.06 H Imm/Tot Granulo (auto) 1.1 H Sodium 141 Potassium 3.3 L Chloride 102 Carbon Dioxide 30.3 Anion Gap 12.0 BUN 25.0 H Creatinine 2.41 H Est GFR ( Amer) 32 L Est GFR (Non-Af Amer) 27 L BUN/Creatinine Ratio 10.4 Glucose 105 Calcium 8.0 L Total Bilirubin 1.0 AST 51 H ALT 43 Alkaline Phosphatase 81 Total Protein 6.4 Albumin 2.4 L Globulin 4.0 Albumin/Globulin Ratio 0.6
[2023-03-08] VITALS (10 sets, daily range): BP systolic 89–92; BP diastolic 48–58; PULSE 75–81; RESP 18; TEMP 36.8; O2SAT 88–96
[2023-03-08] MEDS: PIPERACILLIN SODIUM/TAZOBACTAM 3.375 GM in 0.9 % SODIUM CHLORIDE 50 ML IV ×2 (00:39→07:08)
[2023-03-08] MEDS: LACTATED RINGER'S SOLUTION 1,000 ML 75 ML IV (03:18)
[2023-03-08 05:45] LABS: Basophils Absolute Auto 0.1 10^3/uL (0.0-0.1); Basophils Percent Auto 1.7 % (0.2-2.0); Eosinophils Absolute Auto 0.1 10^3/uL (0.0-0.7); Hematocrit 35.8 % (42.0-54.0); Hemoglobin 11.3 g/dL (14.0-18.0); Immature Granulocytes Abs Auto 0.04 10^3/uL (0.00-0.03); Immature Granulocytes Pct Auto 0.7 % (0.0-0.5); Lymphocytes Percent Auto 16.9 % (20.5-60.0); Mean Corpuscular HGB Conc 31.6 g/dL (29.9-35.2); Mean Corpuscular Hemoglobin 32.4 pg (25.9-34.0); Mean Corpuscular Volume 102.6 fL (80.0-94.0); Mean Platelet Volume 10.6 fL (9.5-13.5); Monocytes Absolute Auto 0.4 10^3/uL (0.3-0.8); Monocytes Percent Auto 6.1 % (1.7-12.0); Neutrophils Absolute Auto 4.3 10^3/uL (1.4-6.5); Neutrophils Percent Auto 72.6 % (43.0-75.0); Platelet Count 175 10^3/uL (150-450); Red Blood Count 3.49 10^6/uL (4.70-6.10); Red Cell Distribution Width 16.8 % (11.0-15.0); White Blood Count 5.9 10^3/uL (4.0-11.0)
[2023-03-08] MEDS: MIDODRINE HCL 5 MG TABLET 10 MG PO ×2 (05:54→11:07)
[2023-03-08] MEDS: MECLIZINE HCL 12.5 MG TABLET 25 MG PO (05:56)
[2023-03-08] MEDS: LEVOTHYROXINE SODIUM 100 MCG TABLET 200 MCG PO (05:56)
[2023-03-08 06:09] LABS: Alanine Aminotransferase 39 U/L (16-63); Albumin Globulin Ratio 0.6; Albumin Level 2.3 g/dL (3.4-5.0); Alkaline Phosphatase 73 U/L (46-116); Anion Gap 12.7; Aspartate Amino Transferase 48 U/L (15-37); BUN Creatinine Ratio 11.7; Calcium 8.2 mg/dL (8.5-10.1); Carbon Dioxide 27.9 mmol/L (21.0-32.0); Chloride 103 mmol/L (98-107); Estimated GFR (African America 41 (>=60); Estimated GFR (Non-African Ame 34 (>=60); Globulin 3.8 g/dL; Glucose 84 mg/dL (74-106); Potassium 3.6 mmol/L (3.5-5.1); Sodium 140 mmol/L (136-145); Total Protein 6.1 g/dL (6.4-8.2)
[2023-03-08] MEDS: GUAIFENESIN 600 MG TAB.ER.12H PO (08:22)
[2023-03-08] MEDS: CARVEDILOL 6.25 MG TABLET PO (08:22)
--- NOTE | 2023-03-08 11:08 | PC.NURSE ---
$194 given to pt from [place] envelope in locked room drawer.. Money all accounted for at this time.
--- NOTE | 2023-03-08 11:18 | PC.NURSE ---
[facility] nurse ip litigation associate Dorita notified of pt discharge. She states they will call pt to set up time to be seen in the home.
--- NOTE | 2023-03-08 11:23 | PC.NURSE ---
discussed with pt that follow up appointment set with Kristian but also needs to follow up with analytical manager. Pt states, Well they already told me there's nothing anybody acn do so why follow up now? Enc to call [facility] outpt clinic of the [facility] cardiology if doesnt have a analytical manager that he sees now. Pt verbalized understanind but states, I dont know what I'll do or not
--- NOTE | 2023-03-08 19:37 | PM.DS1 ---
DS: Providers Provider Date of admission: 03/03/23 11:20 Primary care physician: JAN RIZZO Consults: 03/04/23 Occupational Therapy Eval and Treat Routine Reason for consultation: weakness 03/04/23 07:00 Physical Therapy Eval and Treat Routine Reason for consultation: general weakness Has provider been notified: No 03/06/23 21:51 Occupational Therapy Eval and Treat Routine Reason for consultation: weakness Physical Therapy Eval and Treat Routine Reason for consultation: weakness Attending physician on discharge: Shaikh Leonila Discharging clinician: Shaikh Leonila Anticipated date of discharge: 03/08/23 DS: Diagnosis Discharge Diagnosis (1) Severe sepsis with septic shock: Assessment and plan: Stable hemodynamics now. Blood culture positive for Klebsiella. Stable for d/c on oral Ceftin. (2) Bacteremia due to Klebsiella pneumoniae: Assessment and plan: blood cultures positive for Klebsiella. Sensitive to oral ceftin. Will d.c on oral abx. (3) Right upper lobe pneumonia: Assessment and plan: Due to Kelbsiela. Positive blood cultures. Stable for d/c on oral ceftin. Doing well and comfortable on RA. CXR on 03/07 shows improvement. Will need outpatient repeat CT in 4-6 weeks to document resolution. (4) Acute on chronic HFrEF (heart failure with reduced ejection fraction): Assessment and plan: More or less euvolemic now and was on IVF overnight for BRYN and dehydration. Will hold esntresto and defer to Cardiology to resume if warranted as patient has borderline low BP at baseline. c/w coreg (5) COPD (chronic obstructive pulmonary disease) with emphysema: Assessment and plan: Stable. Outpatient f/u (6) BRYN (acute kidney injury): Assessment and plan: Cr improved to more or less back to baseline. OK to d/c home (7) CKD (chronic kidney disease) stage 4, GFR 15-29 ml/min: Assessment and plan: CKD 4. Closely monitor renal function if entresto is resumed in the future as outpatient. DS: Summary Hospital Course Hospital Course: Patient admitted for SOB, dizziness, found to have septic shock, acute on chronic systolic HF sec to Pneumonia and initially required IV levophed for persistent hypotension. Patient was treated with IV zosyn for Bacterial Pneumonia. He continued to improve clinically with each day. W/u included CTA - no PE, 2D ECHO severely reduced EF, Severe TR, Severe MR. Patient's renal function worsened during his hospital stay with Cr jumping upto 2.4 that was felt to be due to overdiuresis. Cr improved almost back to baseline with IVF with good UO Blood culture drawn on admission were positive for Klebsiella. Will d/c on Po CEFTIN. Entresto on hold and defer to Cardiology to resume if warranted. Patient will benefit from repeat BMP in one week to ensure renal function continues to improve, repeat Chest XR 4-6 weeks to ensure resolution of his pneumonia Initially, plan was to discharge patient to rehab as he was quite week and required assistance to ambulate but he recovered well and was able to walk without needing much help and physician and the patient himself also felt it was safe for him to go home. Patient educated on clinical signs and symptoms of worsening Pneumonia, Congestive HF and instructed to come to ED if he develops persistent fever, worsening SOB, cough. F/u PCP in one week, f/u with Cardiology in 1-2 weeks Status at Discharge Functional status at discharge: uses cane/walker Overall status at discharge: patient is back to baseline Time Spent with Patient Time attestation: Total time spent providing and/or coordinating discharge services: Time spent: greater than 30 minutes Exam Constitutional Vital Signs, click to edit/add: Last Vital Signs Temp 98.3 F 03/08/23 06:00 Pulse 76 03/08/23 09:58 Resp 18 03/08/23 06:00 BP 89/48 L 03/08/23 11:07 Pulse Ox 88 L 03/08/23 06:00 O2 Del Method Room Air 03/08/23 06:00 Common normals: no apparent distress and oriented x3 General appearance: frail appearing Respiratory Common normals: normal respiratory effort, no use of accessory muscles and clear to auscultation bilaterally Effort & inspection: able to speak in complete sentences Cardio Common normals: regular rate, regular rhythm, S1 normal heart sound and S2 normal heart sound Neuro Common normals: oriented x3, moves all extremities and no focal motor deficits DS: Data Data Completed and Pending Labs on day of discharge: Labs from last 24 hours 03/08/23 04:40 WBC 5.9 RBC 3.49 L Hgb 11.3 L Hct 35.8 L MCV 102.6 H MCH 32.4 MCHC 31.6 RDW 16.8 H Plt Count 175 MPV 10.6 Neut % (Auto) 72.6 Lymph % (Auto) 16.9 L [place] % (Auto) 6.1 Eos % (Auto) 2.0 Baso % (Auto) 1.7 Neut # (Auto) 4.3 Lymph # (Auto) 1.0 L [place] # (Auto) 0.4 Eos # (Auto) 0.1 Baso # (Auto) 0.1 Abs Immat Gran (auto) 0.04 H Imm/Tot Granulo (auto) 0.7 H Sodium 140 Potassium 3.6 Chloride 103 Carbon Dioxide 27.9 Anion Gap 12.7 BUN 23.0 H Creatinine 1.96 H Est GFR ( Amer) 41 L Est GFR (Non-Af Amer) 34 L BUN/Creatinine Ratio 11.7 Glucose 84 Calcium 8.2 L Total Bilirubin 1.0 AST 48 H ALT 39 Alkaline Phosphatase 73 Total Protein 6.1 L Albumin 2.3 L Globulin 3.8 Albumin/Globulin Ratio 0.6 Preliminary micro results at discharge 03/03/23 11:30 - Preliminary Blood Klebsiella pneumoniae 03/03/23 11:25 Blood Culture Result 1 - Preliminary Blood NO GROWTH AT 36-48 HOURS. FINAL TO FOLLOW. Discharge Plan Discharge Disposition: Home Health Service Condition: Good Discharge Medications: New cefuroxime axetil 250 mg tablet 250 mg PO BID 5 Days Qty: 10 0RF Continued meclizine [Antivert] 25 mg tablet,chewable 25 mg PO TID Patient Comments: filled 02/10/23 for 7 days carvedilol [Coreg] 6.25 mg tablet 6.25 mg PO BID Rx Instructions: must administer with a meal/food levothyroxine 150 mcg tablet 200 mcg PO DAILY Discontinued Entresto 24-26 mg tablet 1 tab PO BID Patient Comments: no retail history- samples? Activity: resume usual activities as tolerated Diet: low salt diet Patient Instructions: Cefuroxime (By mouth), Weakness (DC), Dizziness (GEN) Activity Restrictions/Additional Instructions: [facility] health will contact you directly to set up time to come to your house Forms: Portal Instructions Follow Up Appointments: Follow up appt. made with Dr. Rizzo on @ 1:30pm office #: [phone] F/u with Cardiology in 1-2 weeks Discharge Date/Time: 03/08/23 11:42
--- NOTE | 2023-03-09 08:01 | CM.NOTE ---
Faxed discharge summary, med list and CRF to [facility] for discharge information. Called Coleen at [facility] to update that pt went home with services.
--- NOTE | 2023-03-09 11:43 | CM.DCFOLLOWU ---
First attempt at discharge follow up call attempted and no answer at this time.
--- NOTE | 2023-03-10 10:41 | CM.NOTE ---
Attempted to do Discharge Follow up phone call with no answer.
== END 2023-03-08 11:42 | disposition home health service (06) | DRG 871 ==
LOC: ER 12:06 → MS 12:11 → ICU 17:39 → MS 03-05 11:44
PROVIDERS: Family Medicine; Nurse Practitioner; Admitting Provider Internal Medicine; Emergency Provider Emergency Medicine; PCP Internal Medicine; Visit Provider Internal Medicine
DX: A41.89 Other specified sepsis (principal); J15.0 Pneumonia due to Klebsiella pneumoniae; R65.21 Severe sepsis with septic shock; N17.9 Acute kidney failure, unspecified; I13.0 Hypertensive heart and chronic kidney disease with heart failure and stage 1 through stage 4 chronic kidney disease, or unspecified chronic kidney disease; I50.23 Acute on chronic systolic (congestive) heart failure; N18.4 Chronic kidney disease, stage 4 (severe); E87.20 Acidosis, unspecified; Z16.11 Resistance to penicillins; J43.9 Emphysema, unspecified; I08.1 Rheumatic disorders of both mitral and tricuspid valves; I25.10 Atherosclerotic heart disease of native coronary artery without angina pectoris; R42 Dizziness and giddiness; E03.9 Hypothyroidism, unspecified; I25.2 Old myocardial infarction; Z87.891 Personal history of nicotine dependence; Z91.81 History of falling; Z79.890 Hormone replacement therapy; Z79.899 Other long term (current) drug therapy; Z90.49 Acquired absence of other specified parts of digestive tract; Z95.810 Presence of automatic (implantable) cardiac defibrillator
CPT/HCPCS: 0202U; 36415; 70450; 71045; 71275; 80048; 80053; 81001; 83605; 83880; 84145; 84443; 84484; 85025; 85378; 87040; 87150; 87186; 93005; 93306; 94667; 94668; 94761; 96365; 96366; 96367; 96368; 96372; 96375; 96376; 97163; 97165; 97530; 97535; 99285; J0456; Q9966

== ENCOUNTER 2023-03-13 12:19 | Emergency (ER) | payer MEDICARE, SELFPAY ==
[2023-03-13] VITALS (17 sets, daily range): BP systolic 102–118; BP diastolic 74–92; PULSE 102–115; RESP 14–26; TEMP 36.7; O2SAT 96–99; BMI 24.5
--- NOTE | 2023-03-13 12:59 | ED_ITS ---
HPI - SOB/Dyspnea General Chief Complaint: Shortness of Breath/Dyspnea Stated Complaint: general weakness Time Seen by Provider: 03/13/23 12:54 Source: patient Mode of arrival: ambulance Limitations: no limitations History of Present Illness HPI Narrative: 72-year-old male presents for cough and shortness of breath. He had been admitted to this hospital and went home five days ago after being admitted for pneumonia. He has one more day of antibiotic left. A home care nurse directed him here. No hemoptysis or fever. Related Data Home Medications Medication Instructions Recorded Confirmed levothyroxine 150 mcg tablet 200 mcg PO DAILY 12/01/22 03/06/23 meclizine 25 mg chewable tablet 25 mg PO TID 02/10/23 03/03/23 (Antivert) carvedilol 6.25 mg tablet (Coreg) 6.25 mg PO BID 03/06/23 03/06/23 Previous Rx's Medication Instructions Recorded cefuroxime axetil 250 mg tablet 250 mg PO BID 5 days #10 tabs 03/08/23 Allergies Allergy/AdvReac Type Severity Reaction Status Date / Time No Known Drug Allergies Allergy Verified 03/13/23 12:23 Review of Systems ROS Narrative A ten point review of systems is negative except as noted above. [facility] Medical History (Updated 03/13/23 @ 16:29 by Calderon Giles MD) Bacteremia due to Klebsiella pneumoniae ?R78.81 - Bacteremia (ICD-10) ?B96.1 - Klebsiella pneumoniae [k. pneumoniae] as the cause of diseases classified elsewhere (ICD-10) CKD (chronic kidney disease) stage 4, GFR 15-29 ml/min ?N18.4 - Chronic kidney disease, stage 4 (severe) (ICD-10) CAD (coronary artery disease) ?I25.10 - Atherosclerotic heart disease of [place] coronary artery without angina pectoris (ICD-10) COPD with acute exacerbation ?J44.1 - Chronic obstructive pulmonary disease with (acute) exacerbation (ICD-10) Polyposis of colon ?K63.5 - Polyp of colon (ICD-10) HTN (hypertension) ?I10 - Essential (primary) hypertension (ICD-10) COPD (chronic obstructive pulmonary disease) with emphysema ?J43.9 - Emphysema, unspecified (ICD-10) Hypothyroidism ?E03.9 - Hypothyroidism, unspecified (ICD-10) HFrEF (heart failure with reduced ejection fraction) ?I50.20 - Unspecified systolic (congestive) heart failure (ICD-10) Sepsis ?A41.9 - Sepsis, unspecified organism (ICD-10) Cardiac defibrillator in place ?Z95.810 - Presence of automatic (implantable) cardiac defibrillator (ICD-10) Myocardial infarction ?I21.9 - Acute myocardial infarction, unspecified (ICD-10) Right upper lobe pneumonia ?J18.9 - Pneumonia, unspecified organism (ICD-10) Vertigo ?R42 - Dizziness and giddiness (ICD-10) Pleural effusion ?J90 - Pleural effusion, not elsewhere classified (ICD-10) Community acquired pneumonia ?J18.9 - Pneumonia, unspecified organism (ICD-10) Congestive heart failure ?I50.9 - Heart failure, unspecified (ICD-10) Surgical History (Updated 03/03/23 @ 15:21 by Kelly Rico NP) H/O cardiac catheterization ?Z98.890 - Other specified postprocedural states (ICD-10) History of colonoscopy ?Z98.890 - Other specified postprocedural states (ICD-10) History of esophagogastroduodenoscopy (EGD) ?Z98.890 - Other specified postprocedural states (ICD-10) History of implantable cardioverter-defibrillator (ICD) placement ?Z95.810 - Presence of automatic (implantable) cardiac defibrillator (ICD-10) History of cholecystectomy ?Z90.49 - Acquired absence of other specified parts of digestive tract (ICD- 10) History of appendectomy ?Z90.49 - Acquired absence of other specified parts of digestive tract (ICD- 10) Family History Mother Family history of CHF (congestive heart failure) Family history of diabetes mellitus Social History (Updated 03/03/23 @ 14:48 by Jany Enciso) Within the past year, how often did you have a drink containing alcohol: never Score interpretation: A score less than 4 is consistent with normal alcohol consumption. Smoking status: Former smoker Previous occupational history: [employer] Known occupational exposures/hazards: No Highest level of school completed/degree received: high school graduate Are you now , , , , never or living with a partner: In a typical week, how many times do you talk on the telephone with family, friends, or neighbors: 3 or more times per week How often do you get together with friends or relatives: 3 or more times per week How often do you attend mandaen or shinto services: never Do you belong to any clubs or organizations such as mandaen groups unions, fraternal or athletic groups, or school groups: no Total score: 1 Score interpretation: A score of less than or equal to 1 indicates the most socially isolated. Little interest or pleasure in doing things: not at all Feeling down, depressed, or hopeless: not at all Feel stressed/tense/nervous/anxious/difficulty sleeping: only a little Due to disability, difficulty making decisions: No Do you think of yourself as: straight/heterosexual Gender Identity: male Exam Narrative Exam Narrative: Nurses note and vital signs reviewed and patient is not hypoxic. General: The patient appears well and in no apparent distress. Patient is resting comfortably on cart. Skin: Warm, dry, slight pallor noted. There is no rash noted. Head: Normocephalic, atraumatic Eye: Normal conjunctiva, no drainage Ears, Nose, Mouth, and Throat: oral mucosa is moist. Nares patent. Mouth without vesicles. Ear canals patent. Tm's without Erythema Cardiovascular: Regular Rate and Rhythm Respiratory: Patient is in no distress, no accessory muscle use, lungs are clear to auscultation, no wheezing, rales or rhonchi Back: non-tender GI: no tenderness to palpation, no masses appreciated. No rebound, guarding, or rigidity noted. Musculoskeletal: The patient has no evidence of calf tenderness, no pitting edema, symmetrical pulses noted bilaterally Neurological: A&O, normal speech Psychiatric: Cooperative Constitutional Vital Signs, click to edit/add: Last Vital Signs Temp 98.1 F 03/13/23 12: Pulse 102 H 03/13/23 15:43 Resp 16 03/13/23 15:43 BP 105/74 03/13/23 15:43 Pulse Ox 98 03/13/23 15:43 O2 Del Method Room Air 03/13/23 12:23 Course Vital Signs Vital signs: Vital Signs Temperature 98.1 F 03/13/23 12:23 Pulse Rate 109 H 03/13/23 12:23 Respiratory Rate 20 12/08/23 12:23 Blood Pressure 109/81 12/08/23 12:23 Pulse Oximetry 97 03/13/23 12:23 Oxygen Delivery Method Room Air 03/13/23 12:23 Temperature 98.1 F 03/13/23 12:23 Pulse Rate 102 H 03/13/23 15:43 Respiratory Rate 16 03/13/23 15:43 Blood Pressure 105/74 03/13/23 15:43 Pulse Oximetry 98 03/13/23 15:43 Oxygen Delivery Method Room Air 03/13/23 12:23 MDM - SOB/Dyspnea MDM Narrative Medical decision making narrative: the patient's workup is negative. His vital signs are normal, he doesn't have a fever. Chest x-ray shows no new findings and he has at least one more day of antibiotic left that he will take. I've no clinical suspicion of pulmonary embolism. He is being discharged home. Findings were discussed with the patient. Differential Diagnosis Differential diagnosis: Likely acute exacerbation of chronic obstructive airways disease, congestive heart failure and community acquired pneumonia Lab Data Attestation: I reviewed the patient's lab results. Labs: Lab Results 03/13/23 03/13/23 03/13/23 Range/Units 12:34 12:40 13:03 WBC 4.6 (4.0-11.0) 10^3/uL RBC 3.88 L (4.70-6.10) 10^6/uL Hgb 12.8 L (14.0-18.0) g/dL Hct 41.8 L (42.0-54.0) % MCV 107.7 H (80.0-94.0) fL MCH 33.0 (25.9-34.0) pg MCHC 30.6 (29.9-35.2) g/dL RDW 17.1 H (11.0-15.0) % Plt Count 146 L (150-450) 10^3/uL MPV 11.2 (9.5-13.5) fL Neut % (Auto) 69.1 (43.0-75.0) % Lymph % (Auto) 21.7 (20.5-60.0) % Wells % (Auto) 5.0 (1.7-12.0) % Eos % (Auto) 2.6 (0.9-7.0) % Baso % (Auto) 0.9 (0.2-2.0) % Neut # (Auto) 3.2 (1.4-6.5) 10^3/uL Lymph # (Auto) 1.0 L (1.2-3.8) 10^3/uL Wells # (Auto) 0.2 L (0.3-0.8) 10^3/uL Eos # (Auto) 0.1 (0.0-0.7) 10^3/uL Baso # (Auto) 0.0 (0.0-0.1) 10^3/uL Abs Immat Gran (auto) 0.03 (0.00-0.03) 10^3/uL Imm/Tot Granulo (auto) 0.7 H (0.0-0.5) % Sodium 136 (136-145) mmol/L Potassium 3.5 (3.5-5.1) mmol/L Chloride 102 (98-107) mmol/L Carbon Dioxide 24.0 (21.0-32.0) mmol/L Anion Gap 13.5 BUN 15.0 (7.0-18.0) mg/dL Creatinine 1.43 H (0.70-1.30) mg/dL Est GFR ( Amer) 59 L (>=60) Est GFR (Non-Af Amer) 49 L (>=60) BUN/Creatinine Ratio 10.5 Glucose 123 H (74-106) mg/dL Calcium 8.2 L (8.5-10.1) mg/dL Total Bilirubin 0.9 (0.2-1.0) mg/dL Direct Bilirubin 0.2 (0.0-0.2) mg/dL AST 54 H (15-37) U/L ALT 37 (16-63) U/L Alkaline Phosphatase 84 (46-116) U/L Troponin I High Sens 13.1 (4.0-76.1) pg/mL Total Protein 7.3 (6.4-8.2) g/dL Albumin 2.6 L (3.4-5.0) g/dL Globulin 4.7 g/dL Albumin/Globulin Ratio 0.6 Urine Color (YELLOW) Urine Clarity (CLEAR) Urine pH (5.0-9.0) Ur Specific [place] (1.005-1.025) Urine Protein (NEG/TRACE) mg/dL Urine Glucose (UA) (NEGATIVE) mg/dL Urine Ketones (NEGATIVE) mg/dL Urine Occult Blood (NEGATIVE) Urine Nitrite (NEGATIVE) Urine Bilirubin (NEGATIVE) Urine Urobilinogen (0.2-1.0) EU/dL Ur Leukocyte Esterase (NEGATIVE) Urine RBC (0-2) #/HPF Urine WBC (NONE SEEN) #/HPF Ur Squamous Epith Cells (NONE/RARE) #/LPF Urine Crystals (None Seen) #/HPF Urine Bacteria (NONE SEEN) #/HPF Urine Casts (NONE SEEN) #/LPF Urine Mucus (NONE SEEN) SARS-CoV-2 (PCR) Negative (NEGATIVE) Influenza Type A Ag Negative Influenza Type B Ag Negative 03/13/23 Range/Units 16:09 WBC (4.0-11.0) 10^3/uL RBC (4.70-6.10) 10^6/uL Hgb (14.0-18.0) g/dL Hct (42.0-54.0) % MCV (80.0-94.0) fL MCH (25.9-34.0) pg MCHC (29.9-35.2) g/dL RDW (11.0-15.0) % Plt Count (150-450) 10^3/uL MPV (9.5-13.5) fL Neut % (Auto) (43.0-75.0) % Lymph % (Auto) (20.5-60.0) % Wells % (Auto) (1.7-12.0) % Eos % (Auto) (0.9-7.0) % Baso % (Auto) (0.2-2.0) % Neut # (Auto) (1.4-6.5) 10^3/uL Lymph # (Auto) (1.2-3.8) 10^3/uL Wells # (Auto) (0.3-0.8) 10^3/uL Eos # (Auto) (0.0-0.7) 10^3/uL Baso # (Auto) (0.0-0.1) 10^3/uL Abs Immat Gran (auto) (0.00-0.03) 10^3/uL Imm/Tot Granulo (auto) (0.0-0.5) % Sodium (136-145) mmol/L Potassium (3.5-5.1) mmol/L Chloride (98-107) mmol/L Carbon Dioxide (21.0-32.0) mmol/L Anion Gap BUN (7.0-18.0) mg/dL Creatinine (0.70-1.30) mg/dL Est GFR ( Amer) (>=60) Est GFR (Non-Af Amer) (>=60) BUN/Creatinine Ratio Glucose (74-106) mg/dL Calcium (8.5-10.1) mg/dL Total Bilirubin (0.2-1.0) mg/dL Direct Bilirubin (0.0-0.2) mg/dL AST (15-37) U/L ALT (16-63) U/L Alkaline Phosphatase (46-116) U/L Troponin I High Sens (4.0-76.1) pg/mL Total Protein (6.4-8.2) g/dL Albumin (3.4-5.0) g/dL Globulin g/dL Albumin/Globulin Ratio Urine Color Dk. yellow (YELLOW) Urine Clarity Clear (CLEAR) Urine pH 6.5 (5.0-9.0) Ur Specific [place] 1.020 (1.005-1.025) Urine Protein 100 A (NEG/TRACE) mg/dL Urine Glucose (UA) Negative (NEGATIVE) mg/dL Urine Ketones Negative (NEGATIVE) mg/dL Urine Occult Blood Negative (NEGATIVE) Urine Nitrite Negative (NEGATIVE) Urine Bilirubin Small A (NEGATIVE) Urine Urobilinogen 1.0 (0.2-1.0) EU/dL Ur Leukocyte Esterase Negative (NEGATIVE) Urine RBC None seen (0-2) #/HPF Urine WBC 0-2 A (NONE SEEN) #/HPF Ur Squamous Epith Cells Rare (NONE/RARE) #/LPF Urine Crystals None seen (None Seen) #/HPF Urine Bacteria None seen (NONE SEEN) #/HPF Urine Casts None seen (NONE SEEN) #/LPF Urine Mucus Small A (NONE SEEN) SARS-CoV-2 (PCR) (NEGATIVE) Influenza Type A Ag Influenza Type B Ag Imaging Data Chest x-ray: Radiologist's impression: Procedure: XR chest 1V EXAM: XR chest 1V HISTORY: SOB COMPARISON: Chest study dated 03/07/2023 TECHNIQUE: AP view of the chest was obtained with portable technique at 1:30 PM. FINDINGS: Heart and mediastinal contours are unremarkable in appearance. Pacemaker on the left similar to prior study. Moderate patchy and somewhat consolidated infiltrate in the right upper lung field similar to prior study when allowing for differences in technique. There may be minimal patchy infiltrative changes in the lower lung robison. No obvious interval abnormality. No obvious pneumothorax. Bony structures are stable in appearance. IMPRESSION: Infiltrative changes in the right upper lung field similar to the prior study. There may be minimal patchy infiltrative changes in the lower lung robison, no significant change since prior study. Electronically authenticated by: NEGRO VALERA Date: 03/13/2023 13:59 ECG Data Attestation: I personally reviewed and interpreted this ECG as follows: (EKG on my interpretation shows no acute findings) Discharge Plan Discharge Chief Complaint: Shortness of Breath/Dyspnea Clinical Impression: Dyspnea Patient Disposition: Home, Self-Care Time of Disposition Decision: 16:29 Condition: Good Mode of Transportation: Private Vehicle Prescriptions / Home Meds: No Action meclizine [Antivert] 25 mg tablet,chewable 25 mg PO TID Patient Comments: filled 02/10/23 for 7 days carvedilol [Coreg] 6.25 mg tablet 6.25 mg PO BID Rx Instructions: must administer with a meal/food cefuroxime axetil 250 mg tablet 250 mg PO BID 5 Days Qty: 10 0RF levothyroxine 150 mcg tablet 200 mcg PO DAILY Instructions: Dyspnea (ED) Stand Alone Forms: Portal Instructions Referrals: JAN RIZZO [Primary Care Provider] - 1 week
--- NOTE | 2023-03-13 12:59 | XR_ITS ---
The [address] [address] Patient Name: CORKY DUENAS MRN: [id number] date: 1950 Sex: M Assigned Patient Location: ER Current Patient Location: ER Accession/Order Number: [id number] Exam Date: 03/13/2023 13:31 Report Date: 03/13/2023 13:59 At the request of: NORBERTO SCHWARTZ Procedure: XR chest 1V EXAM: XR chest 1V HISTORY: SOB COMPARISON: Chest study dated 03/07/2023 TECHNIQUE: AP view of the chest was obtained with portable technique at 1:30 PM. FINDINGS: Heart and mediastinal contours are unremarkable in appearance. Pacemaker on the left similar to prior study. Moderate patchy and somewhat consolidated infiltrate in the right upper lung field similar to prior study when allowing for differences in technique. There may be minimal patchy infiltrative changes in the lower lung robison. No obvious interval abnormality. No obvious pneumothorax. Bony structures are stable in appearance. XR/XR chest 1V IMPRESSION: Infiltrative changes in the right upper lung field similar to the prior study. There may be minimal patchy infiltrative changes in the lower lung robison, no significant change since prior study. Electronically authenticated by: NEGRO VALERA Date: 03/13/2023 13:59
--- NOTE | 2023-03-13 12:59 | ECG_ITS ---
The [facility] Test Date: 2023-03-13 Pat Name: CORKY DUENAS Department: Room: - Gender: Male [employer]: : 1950 Requested By: JAN RIZZO Order Number: [id number] Reading MD: KIRSTEN SCHULTZ Measurements Intervals [place] Rate: 108 P: -[id number] SC: -[id number] QRS: 106 QRSD: 170 T: -47 QT: 418 QTc: 482 Interpretive Statements Paced rhythm Electronically Signed On 03-15-2023 17:46:48 EST by KIRSTEN SCHULTZ
[2023-03-13 13:15] LABS: Basophils Percent Auto 0.9 % (0.2-2.0); Eosinophils Absolute Auto 0.1 10^3/uL (0.0-0.7); Eosinophils Percent Auto 2.6 % (0.9-7.0); Hematocrit 41.8 % (42.0-54.0); Hemoglobin 12.8 g/dL (14.0-18.0); Immature Granulocytes Abs Auto 0.03 10^3/uL (0.00-0.03); Immature Granulocytes Pct Auto 0.7 % (0.0-0.5); Lymphocytes Percent Auto 21.7 % (20.5-60.0); Mean Corpuscular HGB Conc 30.6 g/dL (29.9-35.2); Mean Platelet Volume 11.2 fL (9.5-13.5); Monocytes Absolute Auto 0.2 10^3/uL (0.3-0.8); Neutrophils Absolute Auto 3.2 10^3/uL (1.4-6.5); Neutrophils Percent Auto 69.1 % (43.0-75.0); Platelet Count 146 10^3/uL (150-450); Red Blood Count 3.88 10^6/uL (4.70-6.10); Red Cell Distribution Width 17.1 % (11.0-15.0); White Blood Count 4.6 10^3/uL (4.0-11.0)
[2023-03-13 13:19] LABS: Anion Gap 13.5
[2023-03-13 13:22] LABS: Alanine Aminotransferase 37 U/L (16-63); Albumin Globulin Ratio 0.6; Albumin Level 2.6 g/dL (3.4-5.0); Alkaline Phosphatase 84 U/L (46-116); Aspartate Amino Transferase 54 U/L (15-37); BUN Creatinine Ratio 10.5; Bilirubin Direct 0.2 mg/dL (0.0-0.2); Bilirubin Total 0.9 mg/dL (0.2-1.0); Calcium 8.2 mg/dL (8.5-10.1); Chloride 102 mmol/L (98-107); Estimated GFR (African America 59 (>=60); Estimated GFR (Non-African Ame 49 (>=60); Globulin 4.7 g/dL; Glucose 123 mg/dL (74-106); Potassium 3.5 mmol/L (3.5-5.1); Sodium 136 mmol/L (136-145); Total Protein 7.3 g/dL (6.4-8.2); Troponin I High Sensitivity 13.1 pg/mL (4.0-76.1)
[2023-03-13 13:24] LABS: Influenza Virus A Antigen Negative; Influenza Virus B Antigen Negative; Internal Control Within Normal Limits; SARS-CoV-2 Ag NEGATIVE (NEGATIVE)
[2023-03-13 13:28] LABS: Mean Corpuscular Volume 107.7 fL (80.0-94.0)
[2023-03-13 16:15] LABS: Bilirubin Urine SMALL (NEGATIVE); Blood Urine NEGATIVE (NEGATIVE); Clarity Urine CLEAR (CLEAR); Color Urine DK. YELLOW (YELLOW); Glucose Urine UA NEGATIVE (NEGATIVE); Ketones Urine NEGATIVE (NEGATIVE); Leukocyte Esterase Urine NEGATIVE (NEGATIVE); Nitrite Urine NEGATIVE (NEGATIVE); Protein Urine 100 mg/dL (NEG/TRACE); pH Urine 6.5 (5.0-9.0)
[2023-03-13 16:22] LABS: Bacteria Urine NONE SEEN #/HPF (NONE SEEN); Mucus Urine SMALL (NONE SEEN); RBC Urine NONE SEEN #/HPF (0-2); Squamous Epithelial Cell Urine RARE #/LPF (NONE/RARE); WBC Urine 0-2 #/HPF (NONE SEEN)
[2023-03-13 16:23] LABS: Cast Seen? NONE SEEN #/LPF (NONE SEEN); Crystals Seen? None Seen #/HPF (None Seen)
[2023-03-14 15:31] LABS: SARS-CoV-2 NAA NOT DETECTED (NOT DETECTE)
== END 2023-03-13 17:00 | disposition home or self-care (01) ==
PROVIDERS: Emergency Provider Emergency Medicine; PCP Internal Medicine
DX: R06.00 Dyspnea, unspecified (principal); Z79.899 Other long term (current) drug therapy; I25.10 Atherosclerotic heart disease of native coronary artery without angina pectoris; N18.4 Chronic kidney disease, stage 4 (severe); J43.9 Emphysema, unspecified; I50.20 Unspecified systolic (congestive) heart failure; I13.0 Hypertensive heart and chronic kidney disease with heart failure and stage 1 through stage 4 chronic kidney disease, or unspecified chronic kidney disease; Z95.810 Presence of automatic (implantable) cardiac defibrillator; I25.2 Old myocardial infarction; Z90.49 Acquired absence of other specified parts of digestive tract; Z87.891 Personal history of nicotine dependence; J18.9 Pneumonia, unspecified organism
CPT/HCPCS: 36415; 71045; 80048; 80076; 81001; 84484; 85025; 87635; 87804; 87811; 93005; 99285

== ENCOUNTER 2023-03-16 14:41 | Observation (INO) | payer MEDICARE, SELFPAY ==
[2023-03-16] VITALS (31 sets, daily range): BP systolic 92–113; BP diastolic 73–83; PULSE 94–115; RESP 17–38; TEMP 36.3; O2SAT 90–100; BMI 22.8; BMI 23.0
--- NOTE | 2023-03-16 14:52 | ED_ITS ---
HPI - General Adult General Chief complaint: Chest Pain Stated complaint: GENERAL WEAKNESS Time Seen by Provider: 03/16/23 14:49 Source: patient Mode of arrival: ambulance History of Present Illness HPI narrative: patient here by paramedics from his family doctor's office. He went over there for routine follow-up after extensive hospitalization at this hospital. I've looked at previous records and he was here for severe sepsis with pneumonia. At that time he had a substantially decreased ejection fraction and has a history of congestive heart failure. Today he is here his chief complaint is abdominal pain. He said it is a level V/X. He's had for a couple days. He believes he's had his appendix and gallbladder removed and he believes he said hernia surggery as well. He's not had any diarrhea. Has not had a fever that he knows of. He says his breathing is bothering him too much. His pulse ox ninety-eight percent on room air. During my history and physical examination time with the patient he did not have any coughing but he was coughing when the nurses were evaluating him. He is not developing any chest discomfort today. Denies having previous ulcers or internal bleeding. Related Data Home Medications Medication Instructions Recorded Confirmed levothyroxine 150 mcg tablet 200 mcg PO DAILY 12/01/22 03/16/23 carvedilol 6.25 mg tablet (Coreg) 6.25 mg PO BID 03/06/23 03/16/23 Allergies Allergy/AdvReac Type Severity Reaction Status Date / Time No Known Drug Allergies Allergy Verified 03/13/23 12:23 [facility] Medical History (Updated 03/16/23 @ 18:16 by Cyrus Olson MD) Bacteremia due to Klebsiella pneumoniae ?R78.81 - Bacteremia (ICD-10) ?B96.1 - Klebsiella pneumoniae [k. pneumoniae] as the cause of diseases classified elsewhere (ICD-10) CKD (chronic kidney disease) stage 4, GFR 15-29 ml/min ?N18.4 - Chronic kidney disease, stage 4 (severe) (ICD-10) CAD (coronary artery disease) ?I25.10 - Atherosclerotic heart disease of [place] coronary artery without angina pectoris (ICD-10) COPD with acute exacerbation ?J44.1 - Chronic obstructive pulmonary disease with (acute) exacerbation (ICD-10) Polyposis of colon ?K63.5 - Polyp of colon (ICD-10) HTN (hypertension) ?I10 - Essential (primary) hypertension (ICD-10) COPD (chronic obstructive pulmonary disease) with emphysema ?J43.9 - Emphysema, unspecified (ICD-10) Hypothyroidism ?E03.9 - Hypothyroidism, unspecified (ICD-10) HFrEF (heart failure with reduced ejection fraction) ?I50.20 - Unspecified systolic (congestive) heart failure (ICD-10) Sepsis ?A41.9 - Sepsis, unspecified organism (ICD-10) Cardiac defibrillator in place ?Z95.810 - Presence of automatic (implantable) cardiac defibrillator (ICD-10) Myocardial infarction ?I21.9 - Acute myocardial infarction, unspecified (ICD-10) Right upper lobe pneumonia ?J18.9 - Pneumonia, unspecified organism (ICD-10) Vertigo ?R42 - Dizziness and giddiness (ICD-10) Pleural effusion ?J90 - Pleural effusion, not elsewhere classified (ICD-10) Community acquired pneumonia ?J18.9 - Pneumonia, unspecified organism (ICD-10) Congestive heart failure ?I50.9 - Heart failure, unspecified (ICD-10) Surgical History (Updated 03/03/23 @ 15:21 by Kelly Rico NP) H/O cardiac catheterization ?Z98.890 - Other specified postprocedural states (ICD-10) History of colonoscopy ?Z98.890 - Other specified postprocedural states (ICD-10) History of esophagogastroduodenoscopy (EGD) ?Z98.890 - Other specified postprocedural states (ICD-10) History of implantable cardioverter-defibrillator (ICD) placement ?Z95.810 - Presence of automatic (implantable) cardiac defibrillator (ICD-10) History of cholecystectomy ?Z90.49 - Acquired absence of other specified parts of digestive tract (ICD- 10) History of appendectomy ?Z90.49 - Acquired absence of other specified parts of digestive tract (ICD- 10) Family History Mother Family history of CHF (congestive heart failure) Family history of diabetes mellitus Social History (Updated 03/03/23 @ 14:48 by Jany Enciso) Within the past year, how often did you have a drink containing alcohol: never Score interpretation: A score less than 4 is consistent with normal alcohol consumption. Smoking status: Former smoker Previous occupational history: [employer] Known occupational exposures/hazards: No Highest level of school completed/degree received: high school graduate Are you now , , , , never or living with a partner: In a typical week, how many times do you talk on the telephone with family, friends, or neighbors: 3 or more times per week How often do you get together with friends or relatives: 3 or more times per week How often do you attend christian or mandaeism services: never Do you belong to any clubs or organizations such as christian groups unions, fraternal or athletic groups, or school groups: no Total score: 1 Score interpretation: A score of less than or equal to 1 indicates the most socially isolated. Little interest or pleasure in doing things: not at all Feeling down, depressed, or hopeless: not at all Feel stressed/tense/nervous/anxious/difficulty sleeping: only a little Due to disability, difficulty making decisions: No Do you think of yourself as: straight/heterosexual Gender Identity: male Exam Narrative Exam Narrative: patient is awake alert oriented appears older than stated age. He is not coughing during my interview but he was when the nurses saw him. His oxygen saturation is ninety. He is afebrile. insurance he shows no scleral icterus or pallor. Oral cavity is not show any pharyngitis. His airway is intact voice is normal. Lungs showed scattered rhonchi. Is no respirator distress or retractions. He's not wheezing. Heart rate and rhythm are normally he does have a pacemaker in his upper left chest wall. Abdomen he has good bowel sounds. Previous surgical incisions are noted as described above but I cannot determine a specific appendectomy incision. He does not have any abdominal bruits or pulsatile masses. Pulses to the extremities are normal in the lower limb. Neurological examination shows no neurological symptoms or complaints and he has spontaneous movement. No evidence of central nervous system stroke. Back shows no evidence of contusions or abrasions or injury. Somewhat decreased aeration with the rhonchi Constitutional Vital Signs, click to edit/add: Last Vital Signs Temp 97.4 F L 03/16/23 14:44 Pulse 115 H 03/16/23 17:50 Resp 28 H 03/16/23 17:50 BP 106/83 03/16/23 17:30 Pulse Ox 97 03/16/23 17:50 O2 Del Method Room Air 03/16/23 14:54 Course Vital Signs Vital signs: Vital Signs Temperature 97.4 F L 03/16/23 14:44 Pulse Rate 109 H 03/16/23 14:44 Respiratory Rate 20 03/16/23 14:44 Blood Pressure 107/82 03/16/23 14:44 Pulse Oximetry 98 03/16/23 14:44 Oxygen Delivery Method Room Air 03/16/23 14:44 Temperature 97.4 F L 03/16/23 14:44 Pulse Rate 115 H 03/16/23 17:50 Respiratory Rate 28 H 03/16/23 17:50 Blood Pressure 106/83 03/16/23 17:30 Pulse Oximetry 97 03/16/23 17:50 Oxygen Delivery Method Room Air 03/16/23 14:54 Medical Decision Making MDM Narrative Medical decision making narrative: patient's CAT scan was done the abdomen because it was a chief complaint. There is no acute intra-abdominal process but somewhat remarkably it shows a substantial moderate size right pleural effusion that did not show up on his routine chest x-ray. The patient's kidney function is deteriorating. He has a history of low ejection fraction. He has his persisting consolidation in the right lung. Lactate levels are still elevated. I spoke with the hospitalist and we will admit him for supportive care but clearly he has end-stage pathophysiology of a number organ systems here. Lab Data Labs: Lab Results 03/16/23 03/16/23 Range/Units 15:12 15:21 WBC 6.0 (4.0-11.0) 10^3/uL RBC 3.73 L (4.70-6.10) 10^6/uL Hgb 12.2 L (14.0-18.0) g/dL Hct 39.2 L (42.0-54.0) % MCV 105.1 H (80.0-94.0) fL MCH 32.7 (25.9-34.0) pg MCHC 31.1 (29.9-35.2) g/dL RDW 16.8 H (11.0-15.0) % Plt Count 163 (150-450) 10^3/uL MPV 11.3 (9.5-13.5) fL Neut % (Auto) 74.1 (43.0-75.0) % Lymph % (Auto) 14.8 L (20.5-60.0) % [place] % (Auto) 8.0 (1.7-12.0) % Eos % (Auto) 1.2 (0.9-7.0) % Baso % (Auto) 1.2 (0.2-2.0) % Neut # (Auto) 4.5 (1.4-6.5) 10^3/uL Lymph # (Auto) 0.9 L (1.2-3.8) 10^3/uL [place] # (Auto) 0.5 (0.3-0.8) 10^3/uL Eos # (Auto) 0.1 (0.0-0.7) 10^3/uL Baso # (Auto) 0.1 (0.0-0.1) 10^3/uL Abs Immat Gran (auto) 0.04 H (0.00-0.03) 10^3/uL Imm/Tot Granulo (auto) 0.7 H (0.0-0.5) % Sodium 138 (136-145) mmol/L Potassium 3.9 (3.5-5.1) mmol/L Chloride 103 (98-107) mmol/L Carbon Dioxide 21.5 (21.0-32.0) mmol/L Anion Gap 17.4 BUN 27.0 H (7.0-18.0) mg/dL Creatinine 1.73 H (0.70-1.30) mg/dL Est GFR ( Amer) 48 L (>=60) Est GFR (Non-Af Amer) 39 L (>=60) BUN/Creatinine Ratio 15.6 Glucose 109 H (74-106) mg/dL Lactate 3.5 H* (0.4-2.0) mmol/L Calcium 8.1 L (8.5-10.1) mg/dL Total Bilirubin 1.5 H (0.2-1.0) mg/dL AST 35 (15-37) U/L ALT 28 (16-63) U/L Alkaline Phosphatase 86 (46-116) U/L Troponin I High Sens 17.5 (4.0-76.1) pg/mL Total Protein 7.1 (6.4-8.2) g/dL Albumin 2.8 L (3.4-5.0) g/dL Globulin 4.3 g/dL Albumin/Globulin Ratio 0.7 Lipase 53.0 (16.0-77.0) U/L SARS-CoV-2 (PCR) Negative (NEGATIVE) Discharge Plan Discharge Chief Complaint: Chest Pain Clinical Impression: Dyspnea Qualifiers: Dyspnea type: shortness of breath Qualified Code(s): R06.02 - Shortness of breath Patient Disposition: Admitted as Observation Time of Disposition Decision: 18:16 Prescriptions / Home Meds: No Action carvedilol [Coreg] 6.25 mg tablet 6.25 mg PO BID Rx Instructions: must administer with a meal/food levothyroxine 150 mcg tablet 200 mcg PO DAILY Referrals: JAN RIZZO [Primary Care Provider] - 1 week
--- NOTE | 2023-03-16 15:00 | XR_ITS ---
[address] [address] Patient Name: CORKY DUENAS MRN: [id number] date: 1950 Sex: M Assigned Patient Location: ER Current Patient Location: ER Accession/Order Number: [id number] Exam Date: 03/16/2023 16:10 Report Date: 03/16/2023 16:33 At the request of: MEGAN GUILLAUME Procedure: XR chest 1V EXAM: XR chest 1V HISTORY: abdominal pain COMPARISON: Portable chest 03/13/2023 TECHNIQUE: Portable chest FINDINGS: IMPRESSION: Again demonstrated is the consolidation within the right upper lobe. No discrete change. No acute consolidation or infiltrate. No pneumothorax or pleural effusion. Left-sided cardiac pacemaker. The heart is not enlarged. Electronically authenticated by: CANDI CÁRDENAS Date: 03/16/2023 16:33
--- NOTE | 2023-03-16 15:00 | ECG_ITS ---
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
--- NOTE | 2023-03-16 15:02 | CT_ITS ---
The [address] [address] Patient Name: CORKY DUENAS MRN: [id number] date: 1950 Sex: M Assigned Patient Location: ED.MAIN Current Patient Location: Accession/Order Number: [id number] Exam Date: 03/16/2023 16:14 Report Date: 03/16/2023 17:03 At the request of: MEGAN GUILLAUME Procedure: CT abdomen pelvis w con EXAM: CT abdomen pelvis w con TECHNIQUE: Axial CT images were obtained of the abdomen and pelvis with intravenous contrast. Sagittal and coronal reformatted images were also obtained. Dose reduction techniques were achieved by using automated exposure control and/or adjustment of mA and/or kV according to patient size and/or use of iterative reconstruction technique. HISTORY: abdominal pain COMPARISON: None. FINDINGS: Lower chest: Moderate size right-sided pleural effusion and small left-sided pleural effusion. Patchy bilateral lower lung airspace opacities. The heart is enlarged. Liver: Diffuse decreased attenuation of liver consistent with steatosis. Cysts within segment 4A of liver measuring up to 17 mm. Gallbladder: Status post cholecystectomy. No significant biliary dilatation. Pancreas: The pancreas is homogeneous without evidence for mass lesion or inflammation. Spleen: The spleen is unremarkable without evidence for mass lesion. Adrenal glands: The adrenal glands are unremarkable Kidneys and bladder: Multiple bilateral benign cortical renal and peripelvic renal cysts. Largest cyst is seen of the lower pole right kidney and measures 3.5 cm in diameter. The ureters demonstrate normal caliber. The urinary bladder is unremarkable. GI Tract: Stomach is unremarkable. Visualized small bowel is unremarkable without evidence for obstruction or active inflammation. Moderate diverticulosis of the sigmoid colon. Reproductive: Unremarkable Lymph nodes: No retroperitoneal or abdominal lymphadenopathy. Vascular: The aorta is not dilated. Mesenteric vessels are patent. Peritoneum: No free intraperitoneal air or fluid. No acute inflammation. Dependent presacral edema. Abdominal wall: Degenerative disc disease at L5-S1. CT/CT abdomen pelvis w con IMPRESSION: Bilateral pleural effusions, right greater than left. Mild patchy bilateral lower lobe airspace opacities, right greater than left. No additional acute abdominal findings. No bowel obstruction. No obstructing urinary tract stone. No acute inflammatory process. Electronically authenticated by: NARCISO KHANNA Date: 03/16/2023 17:03
[2023-03-16] MEDS: 0.9 % SODIUM CHLORIDE 1,000 ML 100 ML IV (15:06)
[2023-03-16 15:26] LABS: Basophils Absolute Auto 0.1 10^3/uL (0.0-0.1); Basophils Percent Auto 1.2 % (0.2-2.0); Eosinophils Absolute Auto 0.1 10^3/uL (0.0-0.7); Eosinophils Percent Auto 1.2 % (0.9-7.0); Hematocrit 39.2 % (42.0-54.0); Hemoglobin 12.2 g/dL (14.0-18.0); Immature Granulocytes Abs Auto 0.04 10^3/uL (0.00-0.03); Immature Granulocytes Pct Auto 0.7 % (0.0-0.5); Lymphocytes Absolute Auto 0.9 10^3/uL (1.2-3.8); Lymphocytes Percent Auto 14.8 % (20.5-60.0); Mean Corpuscular HGB Conc 31.1 g/dL (29.9-35.2); Mean Corpuscular Hemoglobin 32.7 pg (25.9-34.0); Mean Corpuscular Volume 105.1 fL (80.0-94.0); Mean Platelet Volume 11.3 fL (9.5-13.5); Monocytes Absolute Auto 0.5 10^3/uL (0.3-0.8); Neutrophils Absolute Auto 4.5 10^3/uL (1.4-6.5); Neutrophils Percent Auto 74.1 % (43.0-75.0); Platelet Count 163 10^3/uL (150-450); Red Blood Count 3.73 10^6/uL (4.70-6.10); Red Cell Distribution Width 16.8 % (11.0-15.0)
[2023-03-16 15:55] LABS: Anion Gap 17.4
[2023-03-16 15:58] LABS: Alanine Aminotransferase 28 U/L (16-63); Albumin Globulin Ratio 0.7; Albumin Level 2.8 g/dL (3.4-5.0); Alkaline Phosphatase 86 U/L (46-116); Aspartate Amino Transferase 35 U/L (15-37); BUN Creatinine Ratio 15.6; Bilirubin Total 1.5 mg/dL (0.2-1.0); Calcium 8.1 mg/dL (8.5-10.1); Carbon Dioxide 21.5 mmol/L (21.0-32.0); Chloride 103 mmol/L (98-107); Estimated GFR (African America 48 (>=60); Estimated GFR (Non-African Ame 39 (>=60); Globulin 4.3 g/dL; Glucose 109 mg/dL (74-106); Potassium 3.9 mmol/L (3.5-5.1); Sodium 138 mmol/L (136-145); Total Protein 7.1 g/dL (6.4-8.2); Troponin I High Sensitivity 17.5 pg/mL (4.0-76.1)
[2023-03-16 16:00] LABS: Lactate/Lactic Acid 3.5 mmol/L (0.4-2.0)
[2023-03-16 16:18] LABS: SARS-CoV-2 Ag NEGATIVE (NEGATIVE)
--- NOTE | 2023-03-16 20:41 | W.PM.TELEPN ---
Progress Note: Subjective Subjective Interval history: CC: Weakness, nausea, vomiting HPI: This is a 72 years old white male who was referred from his primary care physician office because of above complaints. Patient endorses nonbloody vomiting. He stating that he has been constipated for about a week. No hematemesis. No hematochezia. Patient's past medical history significant for cardiomyopathy with severely reduced ejection fraction. Hypothyroidism. The patient was recently discharged from the hospital after prolonged hospitalization. Patient denies any fevers or chills. He is maintaining a reasonable pulse ox on room air. Evaluation in the emergency room significant for signs of worsening renal insufficiency. Exam Narrative Exam Narrative: ROS: 1.General: no fever, chills, not in distress 2.HEENT: no LAURENT, no blurry vision, no swallow problems, no nasal congestion, no sore throat 3.Pulmonary: no cough, SOB, wheezes 4.CVS: no CP, no palpitations, no JOSEPH, no SOB, no intermittent claudication 5.GI: See above 6.: no renal colic, no hematuria, urinary frequency or urgency 7.Extremities: no edema 8.Neurological: no dizziness, vertigo, double or blurry vision, no no focal weakness, no paresthesia, no swallow or speech problems 9.Musculosceletal: no joint pains, no joint swelling, no back pain 10.Dermatological: no skin rashes, no lesions, no pruritus 11.Hematological: no bleeding, no hx/o clots 12.Endocrinological: no heat/cold intolerance, no hx/o diabetes 13.Psychiatric: no suicidal or homicidal thoughts Physical Exam: Not in distress, pleasant, lucid, cooperative, Head - atraumatic, eyes - pupils equal, round, reactive to light, extra ocular movement intact, MMM Neck - supple, thyroid not enlarged, LN not palpated Lungs - clear to auscultation, no dullness on percussion CVS - heart sounds S1, S2, no additional murmurs gallop, regular rate and rhythm Gastrointestinal?abdomen is soft, non-tender, non-distended, no organomegaly, positive bowel sounds Extremities no clubbing, cyanosis or edema Neurological?cranial nerve II?XII grossly intact, no meningeal signs, no cerebellar signs, no sensory deficit Musculoskeletal - joints, no effusions, ROM preserved Dermatological - the skin dry, warm, no rashes Psychiatric?patient is AAO X3, patient has normal affect Constitutional Vital Signs, click to edit/add: Last Vital Signs Temp 97.3 F L 03/16/23 19:10 Pulse 108 H 03/16/23 19:23 Resp 20 03/16/23 19:23 BP 104/75 03/16/23 19:10 Pulse Ox 99 03/16/23 19:23 O2 Del Method Room Air 03/16/23 19:23 Progress Note: Objective Labs Labs: Short CBC 03/16/23 Range/Units 15:12 WBC 6.0 (4.0-11.0) 10^3/uL Hgb 12.2 L (14.0-18.0) g/dL Hct 39.2 L (42.0-54.0) % Plt Count 163 (150-450) 10^3/uL BMP 03/16/23 15:12 Sodium 138 Potassium 3.9 Chloride 103 Carbon Dioxide 21.5 BUN 27.0 H Creatinine 1.73 H Glucose 109 H Calcium 8.1 L Liver Function 03/16/23 Range/Units 15:12 Total Bilirubin 1.5 H (0.2-1.0) mg/dL AST 35 (15-37) U/L ALT 28 (16-63) U/L Alkaline Phosphatase 86 (46-116) U/L Albumin 2.8 L (3.4-5.0) g/dL Progress Note: A&P Assessment and Plan (1) Abdominal pain: Assessment and Plan: Reason unclear. Possibly related to constipation. (2) Constipation: Assessment and Plan: Going to initiate bowel regiment. Going to make sure patient has detailed imaging studies (3) CKD (chronic kidney disease) stage 4, GFR 15-29 ml/min: Assessment and Plan: Monitor BUN and creatinine closely. Avoid use of nephrotoxic medications (4) CAD (coronary artery disease): Assessment and Plan: Chest pain-free for now. Verify and resume home regiment (5) Hypothyroidism: Assessment and Plan: Continue home dose of supplemental levothyroxine. Follow-up TSH results (6) Congestive heart failure: Assessment and Plan: Appears to be euvolemic. Daily weight. Strict I's and O's. Plan As the provider for the telehealth service, I attest that I introduced myself to the patient, provided my credentials, disclosed by location and determined that based on a review of the patient's chart and discussion with members of the patient's treatment team, telemedicine via real-time, 2 way, and interactive audio and video platform is an appropriate and effective means of providing the service. ?The patient and I mutually agree this visit is appropriate for telemedicine. ?The virtual encounter was taken place from? [place], [place]. ?The encounter took approximately 35 minutes. ?The nurse was present during the entire time and I was able to move the stethoscope in appropriate directions. ?The patient was evaluated at the Hospital ? Portions of this note may be dictated using [employer] voice recognition software. Variances in spelling and vocabulary are possible and unintentional. Not all errors may be caught and/or corrected. Please notify the author if any discrepancies are noted and/or if the meaning of any statement is unclear.? ? Patient verbally consented for treatment via video visit with patient currently located at the [facility] and provider located in [place]. Telemedicine Attestation Telemedicine Attestation I conducted this encounter from [[place]] via secure live, [id number] video conference with the patient, located at [facility] with [abdominal pain]. Prior to the interview, the risks and benefits of telemedicine were discussed with the patient and verbal consent was obtained.
[2023-03-16] MEDS: DOCUSATE SODIUM 100 MG CAPSULE PO (21:01)
[2023-03-16] MEDS: CARVEDILOL 6.25 MG TABLET PO (21:01)
[2023-03-16] MEDS: ONDANSETRON PF 4 MG/2 ML VIAL IV (21:01)
[2023-03-16] MEDS: SENNOSIDES/DOCUSATE SODIUM 1 TAB TABLET PO (21:30)
[2023-03-16 22:01] LABS: Lactate/Lactic Acid 2.9 mmol/L (0.4-2.0)
[2023-03-17] VITALS (20 sets, daily range): BP systolic 83–97; BP diastolic 60–67; PULSE 64–96; RESP 16–20; TEMP 36.3–36.6; O2SAT 93–98
[2023-03-17] MEDS: 0.9 % SODIUM CHLORIDE 1,000 ML 100 ML IV (08:36)
[2023-03-17 08:37] LABS: Basophils Absolute Auto 0.1 10^3/uL (0.0-0.1); Basophils Percent Auto 1.6 % (0.2-2.0); Eosinophils Absolute Auto 0.1 10^3/uL (0.0-0.7); Eosinophils Percent Auto 1.6 % (0.9-7.0); Hematocrit 34.8 % (42.0-54.0); Hemoglobin 10.8 g/dL (14.0-18.0); Immature Granulocytes Abs Auto 0.03 10^3/uL (0.00-0.03); Immature Granulocytes Pct Auto 0.7 % (0.0-0.5); Lymphocytes Absolute Auto 0.8 10^3/uL (1.2-3.8); Lymphocytes Percent Auto 17.3 % (20.5-60.0); Mean Corpuscular Hemoglobin 32.7 pg (25.9-34.0); Mean Platelet Volume 11.2 fL (9.5-13.5); Monocytes Absolute Auto 0.4 10^3/uL (0.3-0.8); Monocytes Percent Auto 9.9 % (1.7-12.0); Neutrophils Percent Auto 68.9 % (43.0-75.0); Platelet Count 158 10^3/uL (150-450); White Blood Count 4.3 10^3/uL (4.0-11.0)
[2023-03-17] MEDS: DOCUSATE SODIUM 100 MG CAPSULE PO ×2 (08:37→20:22)
[2023-03-17] MEDS: SENNOSIDES/DOCUSATE SODIUM 1 TAB TABLET PO (08:37)
[2023-03-17 08:39] LABS: Adenovirus NOT DETECTED (NOT DETECTE); Bordetella parapertussis NOT DETECTED (NOT DETECTE); Coronavirus 229E NOT DETECTED (NOT DETECTE); Coronavirus HKU1 NOT DETECTED (NOT DETECTE); Coronavirus NL63 NOT DETECTED (NOT DETECTE); Coronavirus OC43 NOT DETECTED (NOT DETECTE); Human Metapneumovirus NOT DETECTED (NOT DETECTE); Influenza A NOT DETECTED (NOT DETECTE); Influenza B NOT DETECTED (NOT DETECTE); Mycoplasma pneumoniae NOT DETECTED (NOT DETECTE); Parainfluenza Virus 1 NOT DETECTED (NOT DETECTE); Parainfluenza Virus 2 NOT DETECTED (NOT DETECTE); Parainfluenza Virus 3 NOT DETECTED (NOT DETECTE); Parainfluenza Virus 4 NOT DETECTED (NOT DETECTE); Respiratory Syncytial Virus NOT DETECTED (NOT DETECTE); SARS-CoV-2 NOT DETECTED (NOT DETECTE)
[2023-03-17 08:50] LABS: Alanine Aminotransferase 33 U/L (16-63); Albumin Level 2.5 g/dL (3.4-5.0); Alkaline Phosphatase 82 U/L (46-116); Anion Gap 12.7; Aspartate Amino Transferase 38 U/L (15-37); BUN Creatinine Ratio 14.8; Bilirubin Total 1.1 mg/dL (0.2-1.0); Calcium 7.8 mg/dL (8.5-10.1); Carbon Dioxide 27.2 mmol/L (21.0-32.0); Chloride 108 mmol/L (98-107); Estimated GFR (African America 47 (>=60); Estimated GFR (Non-African Ame 38 (>=60); Globulin 3.7 g/dL; Glucose 104 mg/dL (74-106); Potassium 3.9 mmol/L (3.5-5.1); Sodium 144 mmol/L (136-145); Total Protein 6.2 g/dL (6.4-8.2)
[2023-03-17 08:51] LABS: Albumin Globulin Ratio 0.7
[2023-03-17 09:01] LABS: Mean Corpuscular Volume 105.5 fL (80.0-94.0)
[2023-03-17 09:41] LABS: Human Rhinovirus/Enterovirus DETECTED (NOT DETECTE)
[2023-03-17] MEDS: GUAIFENESIN 600 MG TAB.ER.12H PO ×2 (10:22→20:22)
[2023-03-17] MEDS: LEVOFLOXACIN IN DEXTROSE 5 % 750 MG/150 ML IV.SOLN 100 MG IV (10:22)
--- NOTE | 2023-03-17 10:28 | P.HP_ITS ---
<Statement entered by Jacqueline Hernandez DO - 03/17/23 13:30> This documentation has been reviewed and approved. Patient has also been seen and evaluated by myself. I have reviewed labs, radiology findings and agree with the above assessment and plan. H&P: HPI History of Present Illness Chief complaint: SOB, PLURAL EFFUSION Narrative: 03/17/23 0855 This is a 72-year-old male patient with a past medical history as outlined below including COPD, HFrEF (LVEF 10-15%), CAD, hypothyroidism, cardiac arrhythmia with AICD pacemaker placed, recent admission for septic shock/pneumonia/bacteremia discharged on 03/08/23; who presented to the ED last night on the advice of his PCP c/o persistent shortness of breath, [employer] cough, abdominal pain and constipation. He was seen at his PCP office yesterday and his provider felt he still had a persistent pneumonia and was sent to the ED for further evaluation. The pt is not hypoxic, but continues to be SOB with minimal activity at home. He reports taking his antibiotic as prescribed and completing the course of antibiotic after discharge. He denies fevers but reports intermittent chills. No diaphoresis, chest pain, dizziness. Work up in the ED revealed stable CKD3/4 renal function, mildly elevated bilirubin (1.5), persistent lactic acidosis, and a negative COVID swab. A CT of the abdomen was unremarkable except for noting a moderate R pleural effusion. A CXR noted persistent and unchanged RUL consolidation from previous admission. No acute infiltrate or consolidation was noted. No leukocytosis or hypoxia. He was admitted to observation to the hospitalist service last night for abdominal pain and constipation. Nursing notes the pt had a large BM overnight. At the time of my exam the patient is resting in bed. He reports that approximately 2 days after discharge from his last hospitalization he began to feel more short of breath with activity. He is not hypoxic but is activity intolerant. He confirms he completed his course of antibiotic that he was discharged home on on 03/08/2023 he continues to complain of a persistent nonproductive cough. He reports his abdominal pain was colicky in nature and is slightly improved after his BM overnight. He denies nausea and vomiting. We will obtain a CT of the chest to further evaluate his persistent consolidation and consider a consult with pulmonology pending imaging results and clinical course, however he likely could follow-up as an outpatient as the patient is not hypoxic at this time. Review of Systems ROS Status of ROS 10 or more systems reviewed and unremark able except as noted in history and below [facility] Medical History (Updated 03/17/23 @ 11:06 by Kelly Rico NP) Bacteremia due to Klebsiella pneumoniae ?R78.81 - Bacteremia (ICD-10) ?B96.1 - Klebsiella pneumoniae [k. pneumoniae] as the cause of diseases classified elsewhere (ICD-10) CKD (chronic kidney disease) stage 4, GFR 15-29 ml/min ?N18.4 - Chronic kidney disease, stage 4 (severe) (ICD-10) CAD (coronary artery disease) ?I25.10 - Atherosclerotic heart disease of [place] coronary artery without angina pectoris (ICD-10) COPD with acute exacerbation ?J44.1 - Chronic obstructive pulmonary disease with (acute) exacerbation (ICD-10) Polyposis of colon ?K63.5 - Polyp of colon (ICD-10) HTN (hypertension) ?I10 - Essential (primary) hypertension (ICD-10) COPD (chronic obstructive pulmonary disease) with emphysema ?J43.9 - Emphysema, unspecified (ICD-10) Hypothyroidism ?E03.9 - Hypothyroidism, unspecified (ICD-10) HFrEF (heart failure with reduced ejection fraction) ?I50.20 - Unspecified systolic (congestive) heart failure (ICD-10) Sepsis ?A41.9 - Sepsis, unspecified organism (ICD-10) Cardiac defibrillator in place ?Z95.810 - Presence of automatic (implantable) cardiac defibrillator (ICD-10) Myocardial infarction ?I21.9 - Acute myocardial infarction, unspecified (ICD-10) Right upper lobe pneumonia ?J18.9 - Pneumonia, unspecified organism (ICD-10) Vertigo ?R42 - Dizziness and giddiness (ICD-10) Pleural effusion ?J90 - Pleural effusion, not elsewhere classified (ICD-10) Congestive heart failure ?I50.9 - Heart failure, unspecified (ICD-10) Surgical History (Updated 03/03/23 @ 15:21 by Kelly Rico NP) H/O cardiac catheterization ?Z98.890 - Other specified postprocedural states (ICD-10) History of colonoscopy ?Z98.890 - Other specified postprocedural states (ICD-10) History of esophagogastroduodenoscopy (EGD) ?Z98.890 - Other specified postprocedural states (ICD-10) History of implantable cardioverter-defibrillator (ICD) placement ?Z95.810 - Presence of automatic (implantable) cardiac defibrillator (ICD-10) History of cholecystectomy ?Z90.49 - Acquired absence of other specified parts of digestive tract (ICD- 10) History of appendectomy ?Z90.49 - Acquired absence of other specified parts of digestive tract (ICD- 10) Family History Mother Family history of CHF (congestive heart failure) Family history of diabetes mellitus Social History (Updated 03/03/23 @ 14:48 by Jany Enciso) Within the past year, how often did you have a drink containing alcohol: never Score interpretation: A score less than 4 is consistent with normal alcohol consumption. Smoking status: Former smoker Previous occupational history: [employer] Known occupational exposures/hazards: No Highest level of school completed/degree received: high school graduate Are you now , , , , never or living with a partner: In a typical week, how many times do you talk on the telephone with family, friends, or neighbors: 3 or more times per week How often do you get together with friends or relatives: 3 or more times per week How often do you attend congregational or orthodoxy services: never Do you belong to any clubs or organizations such as congregational groups unions, fraternal or athletic groups, or school groups: no Total score: 1 Score interpretation: A score of less than or equal to 1 indicates the most socially isolated. Little interest or pleasure in doing things: not at all Feeling down, depressed, or hopeless: not at all Feel stressed/tense/nervous/anxious/difficulty sleeping: only a little Due to disability, difficulty making decisions: No Do you think of yourself as: straight/heterosexual Gender Identity: male Meds Home Medications and Allergies Home Medications Medication Instructions Recorded Confirmed Type levothyroxine 150 mcg tablet 200 mcg PO DAILY 12/01/22 03/16/23 History carvedilol 6.25 mg tablet (Coreg) 6.25 mg PO BID 03/06/23 03/16/23 History Allergies Allergy/AdvReac Type Severity Reaction Status Date / Time No Known Drug Allergies Allergy Verified 03/13/23 12:23 Exam Constitutional Vital Signs, click to edit/add: Last Vital Signs Temp 98 F 03/17/23 06:08 Pulse 87 03/17/23 10:00 Resp 18 03/17/23 08:40 BP 91/61 03/17/23 08:40 Pulse Ox 93 L 03/17/23 08:40 O2 Del Method Room Air 03/17/23 06:08 Common normals: no apparent distress, oriented x3, alert and well nourished General appearance: cooperative Orientation/consciousness: Yes awake HENMT Common normals: normocephalic, head/scalp atraumatic, hearing grossly normal bilaterally, external nose normal and moist oral mucous membranes Head and scalp: normocephalic and atraumatic Eye Common normals: PERRL, EOMs intact bilaterally, conjunctivae normal and no scleral icterus Alignment: alignment normal Eyelid: eyelids normal Neck & C-Spine Common normals: full ROM, supple and no JVD Chest Common normals: inspection of chest normal Chest: symmetrical chest wall rise Respiratory Common normals: normal respiratory effort, no retractions and no use of accessory muscles Effort & inspection: able to speak in complete sentences Auscultation: rhonchi (Scattered) throughout and wheezes (I&E scattered throughout) Cardio Common normals: no JVD, regular rate, regular rhythm, S1 normal heart sound, S2 normal heart sound, no gallops, no clicks, no rub and peripheral pulses 2+ throughout Heart sounds: murmur (HSM 3/6) GI Common normals: Normal to inspection, nondistended, normoactive bowel sounds present, soft to palpation, no hepatosplenomegaly, no masses and no bruits Palpation: tender (Diffuse, non-focal, greatest at RLQ); no guarding, not rigid and no rebound tenderness present Bladder/kidney exam: bladder normal to palpation Back & Pelvis Common normals: thoracic and lumbar spine normal to inspection Extremity Common normals: normal capillary refill and no pedal edema General: normal exam except as noted; no clubbing and no cyanosis Neuro Purnima Coma Scale: GCS not evaluated Common normals: CN's II-XII intact bilaterally, moves all extremities, no focal motor deficits and no sensory deficits noted Speech: speech normal Motor exam: strength 5/5 throughout Psych Common normals: mental status grossly normal, thought process normal, affect normal and activity/motor behavior normal Results Labs Labs: Short CBC 03/16/23 03/17/23 Range/Units 15:12 08:23 WBC 6.0 4.3 (4.0-11.0) 10^3/uL Hgb 12.2 L 10.8 L (14.0-18.0) g/dL Hct 39.2 L 34.8 L (42.0-54.0) % Plt Count 163 158 (150-450) 10^3/uL BMP 03/16/23 03/17/23 15:12 08:23 Sodium 138 144 Potassium 3.9 3.9 Chloride 103 108 H Carbon Dioxide 21.5 27.2 BUN 27.0 H 26.0 H Creatinine 1.73 H 1.76 H Glucose 109 H 104 Calcium 8.1 L 7.8 L Liver Function 03/16/23 03/17/23 Range/Units 15:12 08:23 Total Bilirubin 1.5 H 1.1 H (0.2-1.0) mg/dL AST 35 38 H (15-37) U/L ALT 28 33 (16-63) U/L Alkaline Phosphatase 86 82 (46-116) U/L Albumin 2.8 L 2.5 L (3.4-5.0) g/dL Pulse Oximetry Attestation: I have reviewed the pertinent pulse oximetry results. Imaging Chest x-ray: Attestation: I have reviewed the pertinent imaging results. Radiologist's impression: FINDINGS: IMPRESSION: Again demonstrated is the consolidation within the right upper lobe. No discrete change. No acute consolidation or infiltrate. No pneumothorax or pleural effusion. Left-sided cardiac pacemaker. The heart is not enlarged. CT scan - abdomen: Attestation: I have reviewed the pertinent imaging results. Radiologist's impression: IMPRESSION: Bilateral pleural effusions, right greater than left. Mild patchy bilateral lower lobe airspace opacities, right greater than left. No additional acute abdominal findings. No bowel obstruction. No obstructing urinary tract stone. No acute inflammatory process. Assessment and Plan Assessment and Plan (1) Abdominal pain: Assessment and Plan: ACUTE * Adm observation overnight * No SBO or acute finding on CT abdomen/pelvis * Suspect 2/2 constipation * Diffuse, non-focal, greatest at RLQ. No rebound or guarding. * CBC, CMP daily (2) Constipation: Assessment and Plan: ACUTE * Resolving * Large BM noted overnight * Continue scheduled stool softeners unless diarrhea develops (3) Community acquired pneumonia: Assessment and Plan: SUBACUTE * Persistent RUL consolidation on CXR w/ scattered rhonchi and wheezing on exam * Afebrile, no hypoxia * Persistent cough * Guaifenisen and OPEP for sputum mobilization * Obtain sputum sample if possible * Start Levaquin IVPB for now pending clinical course * suspected pathogen is k. pneumoniae per blood culture result from last admission, sensitive to fluoroquinolones * Completed full course of Cephalosporin ABX * CT Chest to more definitively evaluate consolidation - consider underlying mass * No CT contrast d/t poor renal fx * Scheduled duonebs, PRN albuterol nebs * Consider pulmonology consult for possible bronc pending CT chest result/clinical course * CBC, CMP daily (4) Physical deconditioning: Assessment and Plan: ACUTE ON CHRONIC * 2/2 prolonged/recurrent hospitalizations * PT/OT eval and treat * Consider SNF rehab stay, current w/ HH at this time (5) CKD (chronic kidney disease) stage 4, GFR 15-29 ml/min: Assessment and Plan: CHRONIC * Stable at baseline * Continue gentle hydration at reduced rate of 75/hr w/ LR today then d/c this evening to avoid fluid overload in pt w/ HFrEF * CMP daily (6) CAD (coronary artery disease): Assessment and Plan: CHRONIC * No CP * continue home Coreg * Entresto held at last admission d/t poor renal fx and soft BPs - defer to outpatient cardiology management (7) Hypothyroidism: Assessment and Plan: CHRONIC * Continue home levothyroxine (8) Congestive heart failure: Assessment and Plan: CHRONIC * Not on Lasix at time of last discharge - concern for over diuresis during that admission * Daily weights, strict I&O * Appears euvolemic to slightly dry during exam * Gentle IVF as above Plan Lovenox daily for DVT proph
--- NOTE | 2023-03-17 11:09 | CT_ITS ---
The [address] [address] Patient Name: CORKY DUENAS MRN: [id number] date: 1950 Sex: M Assigned Patient Location: [place] Current Patient Location: [place] Accession/Order Number: [id number] Exam Date: 03/17/2023 11:08 Report Date: 03/17/2023 11:47 At the request of: JAEYSH STUART Procedure: CT chest wo con EXAM: CT chest wo con HISTORY: Reeval persistent RUL consolidation COMPARISON: CT angiography chest study dated 03/03/2023, chest study dated 03/16/2023 , CT abdomen study dated 03/16/2023 TECHNIQUE: CT chest study was performed without the use of intravenous contrast. Multiple axial images were obtained. Reformatted coronal and sagittal images were obtained and reviewed. FINDINGS: There is mild degree of breath motion artifact. Mild mediastinal adenopathy at the paratracheal level mildly increased since prior exam which may be reactive. Moderate patchy and consolidated infiltrate in the right upper lobe moderately decreased compared to the prior CT chest exam. Mild scattered patchy infiltrative changes in the right lower lobe and left lower lobe decreased since prior CT chest study. [id number] right pleural effusion decreased since prior CT chest study. Small left pleural effusion mildly decreased since prior CT chest exam. Pacemaker on the left similar to the prior study. No obvious pneumothorax. Small calcified granuloma in the left laterally. Chest wall appears grossly intact. Mild degenerative changes in the dorsal spine with slight convexity to the right. CT/CT chest wo con IMPRESSION: Moderate patchy and consolidated infiltrative changes in the right upper lobe moderately decreased compared to the prior exam. Other mildly scattered areas of infiltrate bilaterally as noted mildly decreased since prior study. Bilateral pleural effusions greater on the right, mildly decreased since prior study. Mild adenopathy mildly progressed since prior exam, nonspecific though possibly reactive. Electronically authenticated by: NEGRO VALERA Date: 03/17/2023 11:47
--- NOTE | 2023-03-17 11:42 | CM.NOTE ---
Rounds made with Dr. Hernandez, pt just back from chest CT. Dr. Hernandez will consult Dr. Alejo for pulmonary recommendations.
[2023-03-17] MEDS: ENOXAPARIN SODIUM 40 MG/0.4 ML SYRINGE SUBQ (12:52)
[2023-03-17] MEDS: LACTATED RINGER'S SOLUTION 1,000 ML 75 ML IV (12:52)
--- NOTE | 2023-03-17 14:19 | CM.NOTE ---
Patient is active with [facility] and would like to continue HH services. After discussing with patient PT recommendations, pt refuses skilled therapy.
--- NOTE | 2023-03-17 14:27 | CM.NOTE ---
Faxed updates to [facility].
[2023-03-17] MEDS: IPRATROPIUM/ALBUTEROL SULFATE 3 ML AMPUL.NEB IH ×3 (15:53→23:03)
--- NOTE | 2023-03-17 16:33 | CM.NOTE ---
Medicare Outpatient Observation Notice discussed with pt, pt verbalizes understanding and signs paper. Original given to pt and copy placed on pt's chart.
[2023-03-17] MEDS: CARVEDILOL 6.25 MG TABLET PO (20:22)
[2023-03-17] MEDS: ACETAMINOPHEN 325 MG TABLET 650 MG PO (20:22)
[2023-03-18] VITALS (11 sets, daily range): BP systolic 86–92; BP diastolic 62–74; PULSE 80–85; RESP 16–20; TEMP 36.1–36.4; O2SAT 95–100
[2023-03-18] MEDS: IPRATROPIUM/ALBUTEROL SULFATE 3 ML AMPUL.NEB IH ×3 (03:47→10:12)
[2023-03-18 04:45] LABS: Eosinophils Absolute Auto 0.1 10^3/uL (0.0-0.7); Eosinophils Percent Auto 1.9 % (0.9-7.0); Hematocrit 34.3 % (42.0-54.0); Hemoglobin 10.5 g/dL (14.0-18.0); Immature Granulocytes Abs Auto 0.04 10^3/uL (0.00-0.03); Lymphocytes Absolute Auto 0.8 10^3/uL (1.2-3.8); Lymphocytes Percent Auto 19.7 % (20.5-60.0); Mean Corpuscular HGB Conc 30.6 g/dL (29.9-35.2); Mean Corpuscular Hemoglobin 32.8 pg (25.9-34.0); Mean Corpuscular Volume 107.2 fL (80.0-94.0); Mean Platelet Volume 11.1 fL (9.5-13.5); Monocytes Absolute Auto 0.4 10^3/uL (0.3-0.8); Monocytes Percent Auto 10.1 % (1.7-12.0); Neutrophils Absolute Auto 2.8 10^3/uL (1.4-6.5); Neutrophils Percent Auto 66.3 % (43.0-75.0); Platelet Count 150 10^3/uL (150-450); Red Cell Distribution Width 17.1 % (11.0-15.0); White Blood Count 4.2 10^3/uL (4.0-11.0)
[2023-03-18] MEDS: LEVOTHYROXINE SODIUM 100 MCG TABLET 200 MCG PO (05:07)
[2023-03-18 05:10] LABS: Alanine Aminotransferase 31 U/L (16-63); Albumin Globulin Ratio 0.6; Albumin Level 2.4 g/dL (3.4-5.0); Alkaline Phosphatase 82 U/L (46-116); Anion Gap 11.4; Aspartate Amino Transferase 34 U/L (15-37); BUN Creatinine Ratio 16.2; Calcium 8.2 mg/dL (8.5-10.1); Carbon Dioxide 25.3 mmol/L (21.0-32.0); Chloride 106 mmol/L (98-107); Estimated GFR (African America 44 (>=60); Estimated GFR (Non-African Ame 36 (>=60); Globulin 3.8 g/dL; Glucose 96 mg/dL (74-106); Potassium 3.7 mmol/L (3.5-5.1); Sodium 139 mmol/L (136-145); Total Protein 6.2 g/dL (6.4-8.2)
[2023-03-18] MEDS: 0.9 % SODIUM CHLORIDE 500 ML 250 ML IV (08:35)
[2023-03-18] MEDS: SENNOSIDES/DOCUSATE SODIUM 1 TAB TABLET PO (08:59)
[2023-03-18] MEDS: DOCUSATE SODIUM 100 MG CAPSULE PO (08:59)
[2023-03-18] MEDS: GUAIFENESIN 600 MG TAB.ER.12H PO (08:59)
--- NOTE | 2023-03-18 10:27 | PT.DAILY ---
Physical Therapy Daily Note PT Daily Note/Assess Start: 03/18/23 10:20 Freq: Status: Active Protocol: Document 03/18/23 10:20 ELYSE (Rec: 03/18/23 10:27 ELYSE [id number]) Physical Therapy Daily Note/Assessment Time In/Time Out Time In 09:45 Time Out 10:00 Pain In Pain N/A Pain Out Pain N/A Subjective Subjective Pt sitting in BS chair upon arrival. Agrees to PT. Therapeutic Exercise Time Therapeutic Exercise Minutes (minutes) 3 Therapeutic Exercise Units 0 Therapeutic Exercise Treatment Therapeutic Exercise Treatment Seated bilat LE strengthening ex 10x ea in BS chair. Therapeutic Activity Time Therapeutic Activity Minutes (minutes) 10 Therapeutic Activity Units 1 Therapeutic Activity Treatment Chair Transfer Ability Contact Guard Assist Therapeutic Activity Comments Pt able to yary and tie both shoes IND. Pt performs Sit> stand 5x from BS chair with CGA. Pt then amb 80' with IV pole for support, also CGA. Pt wishes to lay down at this time. Sit>supine SUP with assist for IV lines. Remains supine with call light within reach and needs met. Total Physical Therapy Time Total Therapy Minutes 13 Total Physical Therapy Units 1 Summary Daily Note Summary Improved transfer and gait ability today.
--- NOTE | 2023-03-18 10:28 | CM.NOTE ---
Rounding with Dr. Hernandez. Discussed anticipated discharge today and patient and sister Khushbu on board with this plan. Plan is to resume home health at discharge and patient continues to refuse home health. No other anticpated discharge needs.
--- NOTE | 2023-03-18 10:53 | P.DS_ITS ---
<Statement entered by Jacqueline Hernandez DO - 03/18/23 11:19> This documentation has been reviewed and approved. Time spent with coordination of care/discharge planning was >30min. Patient also seen and evaluated by me, agree with discharge today. Patient to keep follow up appointments. Return to the ED with any worsening symptoms. DS: Providers Provider Date of admission: 03/16/23 18:40 Primary care physician: JAN RIZZO Consults: 03/17/23 Occupational Therapy Eval and Treat Routine Reason for consultation: weakness Physical Therapy Eval and Treat Routine Reason for consultation: weakness Discharging clinician: Kelly Rico DS: Diagnosis Discharge Diagnosis (1) Abdominal pain: (2) Constipation: (3) Community acquired pneumonia: (4) Physical deconditioning: (5) CKD (chronic kidney disease) stage 4, GFR 15-29 ml/min: (6) CAD (coronary artery disease): (7) Hypothyroidism: (8) Congestive heart failure: DS: Summary Hospital Course Hospital Course: The patient was admitted with persistent right upper lobe community-acquired pneumonia shortly after discharge from a previous admission for the same. The patient also complained of abdominal pain and constipation on admission. He was treated with IVPB Levaquin (previously treated for pneumonia with cephalosporins). He was also given scheduled stool softeners and was able to produce a large BM and most of his abdominal discomfort resolved. He was able to maintain oxygenation without O2 supplemental support. His dyspnea has improved and his lung sounds have cleared. A follow-up CT of the chest revealed improving infiltrates and pleural effusions since previous study on his last admission. He is being discharged home in stable condition with home health services to continue. He has been prescribed 4 more days (total 5-day course) o f p.o. Levaquin for pneumonia. He experienced some hypotension and his Coreg has been reduced to 3.125 mg twice daily. The patient has been instructed to take his blood pressure before taking his Coreg and hold if his systolic blood pressure is less than 95. He verbalizes understanding of these instructions. Further rehab strengthening per home health physical therapy is recommended. He should follow-up with his PCP in 5 to 7 days. Time Spent with Patient Time attestation: Total time spent providing and/or coordinating discharge services: Time spent: greater than 30 minutes Specific discharge activities: Physical exam, discussion of discharge plan, que stions answered. Exam Constitutional Vital Signs, click to edit/add: Last Vital Signs Temp 97.0 F L 03/18/23 10:51 Pulse 82 03/18/23 10:51 Resp 18 03/18/23 10:51 BP 92/74 03/18/23 10:51 Pulse Ox 97 03/18/23 10:51 O2 Del Method Room Air 03/18/23 10:51 Common normals: no apparent distress, oriented x3 and alert General appearance: cooperative Orientation/consciousness: Yes awake HENMT Common normals: normocephalic and head/scalp atraumatic Eye Common normals: PERRL, EOMs intact bilaterally, conjunctivae normal and no scleral icterus Neck & C-Spine Common normals: no JVD Respiratory Common normals: normal respiratory effort, no use of accessory muscles and clear to auscultation bilaterally Effort & inspection: able to speak in complete sentences and symmetric chest movement Auscultation: diminished lung sounds (BLL) Cardio Common normals: no JVD, regular rate, regular rhythm, S1 normal heart sound, S2 normal heart sound and peripheral pulses 2+ throughout Heart sounds: murmur (HSM 3/6) GI Common normals: Normal to inspection, nondistended, normoactive bowel sounds present and soft to palpation Palpation: tender (Mild LUQ); no guarding, not rigid and no rebound tenderness present Bladder/kidney exam: bladder normal to palpation Extremity Common normals: normal to inspection, full ROM, normal capillary refill and no pedal edema General: no clubbing and no cyanosis Neuro Common normals: moves all extremities, no focal motor deficits and no sensory deficits noted Speech: speech normal Psych Common normals: mental status grossly normal and activity/motor behavior normal DS: Data Data Completed and Pending Labs on day of discharge: Labs from last 24 hours 03/18/23 04:25 WBC 4.2 RBC 3.20 L Hgb 10.5 L Hct 34.3 L MCV 107.2 H MCH 32.8 MCHC 30.6 RDW 17.1 H Plt Count 150 MPV 11.1 Neut % (Auto) 66.3 Lymph % (Auto) 19.7 L [place] % (Auto) 10.1 Eos % (Auto) 1.9 Baso % (Auto) 1.0 Neut # (Auto) 2.8 Lymph # (Auto) 0.8 L [place] # (Auto) 0.4 Eos # (Auto) 0.1 Baso # (Auto) 0.0 Abs Immat Gran (auto) 0.04 H Imm/Tot Granulo (auto) 1.0 H Sodium 139 Potassium 3.7 Chloride 106 Carbon Dioxide 25.3 Anion Gap 11.4 BUN 30.0 H Creatinine 1.85 H Est GFR ( Amer) 44 L Est GFR (Non-Af Amer) 36 L BUN/Creatinine Ratio 16.2 Glucose 96 Calcium 8.2 L Total Bilirubin 1.0 AST 34 ALT 31 Alkaline Phosphatase 82 Total Protein 6.2 L Albumin 2.4 L Globulin 3.8 Albumin/Globulin Ratio 0.6 Discharge Plan Discharge Disposition: Home Health Service Condition: Fair Discharge Medications: New carvedilol 6.25 mg Tablet 3.125 mg PO BID 30 Days Qty: 30 0RF levofloxacin 750 mg tablet 750 mg PO DAILY 4 Days Qty: 4 0RF Continued levothyroxine 150 mcg tablet 200 mcg PO DAILY Discontinued carvedilol [Coreg] 6.25 mg tablet 6.25 mg PO BID Rx Instructions: must administer with a meal/food Activity Restrictions/Additional Instructions: - May take OTC stool softeners to prevent/treat constipation - Check BP twice daily before taking Coreg. Hold if SBP (top number) is less than 95 Forms: Portal Instructions Follow Up Appointments: @ 3:45pm with Dr. Rizzo [phone]
--- NOTE | 2023-03-18 11:22 | PT.DAILY ---
Physical Therapy Daily Note PT Daily Note/Assess Start: 03/18/23 10:20 Freq: Status: Active Protocol: Document 03/18/23 10:20 ELYSE (Rec: 03/18/23 10:27 ELYSE [id number]) Physical Therapy Daily Note/Assessment Time In/Time Out Time In 09:45 Time Out 10:00 Pain In Pain N/A Pain Out Pain N/A Subjective Subjective Pt sitting in BS chair upon arrival. Agrees to PT. Therapeutic Exercise Time Therapeutic Exercise Minutes (minutes) 3 Therapeutic Exercise Units 0 Therapeutic Exercise Treatment Therapeutic Exercise Treatment Seated bilat LE strengthening ex 10x ea in BS chair. Therapeutic Activity Time Therapeutic Activity Minutes (minutes) 10 Therapeutic Activity Units 1 Therapeutic Activity Treatment Chair Transfer Ability Contact Guard Assist Therapeutic Activity Comments Pt able to yary and tie both shoes IND. Pt performs Sit> stand 5x from BS chair with CGA. Pt then amb 80' with IV pole for support, also CGA. Pt wishes to lay down at this time. Sit>supine SUP with assist for IV lines. Remains supine with call light within reach and needs met. Total Physical Therapy Time Total Therapy Minutes 13 Total Physical Therapy Units 1 Summary Daily Note Summary Improved transfer and gait ability today.
--- NOTE | 2023-03-18 11:47 | CM.NOTE ---
Faxed discharge summary, CRF, and med list to [facility] to resume services.
--- NOTE | 2023-03-20 13:27 | CM.DCFOLLOWU ---
FIrst attempt of discharge follow up call attempted with no answer. Unable to reach patient at this time.
--- NOTE | 2023-03-23 15:44 | CM.DCFOLLOWU ---
Second attempt at discharge follow up call completed, no answer. Unable to reach patient at this time.
== END 2023-03-18 11:17 | disposition home health service (06) ==
LOC: ER 18:16 → ICU 18:47 → MS 03-17 07:49
PROVIDERS: Nurse Practitioner; Admitting Provider Family Medicine; Emergency Provider Emergency Medicine Emergency Medical Services; PCP Internal Medicine; Visit Provider Family Medicine
DX: J18.9 Pneumonia, unspecified organism (principal); R10.9 Unspecified abdominal pain; K59.00 Constipation, unspecified; N18.4 Chronic kidney disease, stage 4 (severe); I25.10 Atherosclerotic heart disease of native coronary artery without angina pectoris; I13.0 Hypertensive heart and chronic kidney disease with heart failure and stage 1 through stage 4 chronic kidney disease, or unspecified chronic kidney disease; J44.9 Chronic obstructive pulmonary disease, unspecified; I50.22 Chronic systolic (congestive) heart failure; E03.9 Hypothyroidism, unspecified; Z95.810 Presence of automatic (implantable) cardiac defibrillator; I25.2 Old myocardial infarction; Z98.890 Other specified postprocedural states; Z90.49 Acquired absence of other specified parts of digestive tract; Z79.899 Other long term (current) drug therapy; Z79.890 Hormone replacement therapy; Z87.891 Personal history of nicotine dependence; Z86.010 Personal history of colon polyps; Z20.822 Contact with and (suspected) exposure to COVID-19; R53.81 Other malaise
CPT/HCPCS: 0202U; 36415; 71045; 71250; 74177; 80053; 83605; 83690; 83735; 84100; 84484; 85025; 87040; 87070; 87635; 87811; 93005; 94640; 94667; 94668; 96365; 96366; 96372; 96375; 97161; 97165; 97530; 99285; G0378; Q3014; Q9967

== ENCOUNTER 2023-04-07 15:47 | Emergency (ER) | payer MEDICARE, SELFPAY ==
[2023-04-07] VITALS (8 sets, daily range): BP systolic 98–106; BP diastolic 76–87; PULSE 97; RESP 18; TEMP 35.2; O2SAT 98; BMI 22.8
--- OUTSIDE RECORDS SUMMARY | 2023-04-07 15:56 | XMS_ITS | CCD ---
Author Name Unknown Address [address] [place] [address] Organization [facility] Care Team Providers Care Clinical Trials Specialist Name Role Phone Unavailable Unavailable CRISTOBAL Albarran Primary Care Provider MD Cristobal Garcia Attending Provider [phone] Juan Manuel Albarran Unavailable Attjoce, Cristobal Unavailable [phone] Randee Perdomo Unavailable Mera Batista Unavailable Janet Spears Unavailable Unavailable Josef Rush Unavailable Unavailable CRISTOBAL Albarran Primary Care Provider [phone] MD Marc Rosario Emergency Provider CRISTOBAL Albarran Primary Care Provider MD Marc Rosairo Emergency Provider MD Beau Goldberg Attending Provider Marc Rosario Admitting Unavailable Marc Rosario Attending Unavailable Juan Manuel Albarran Primary Care Unavailable Attizzani, Cristobal Admitting Unavailable Attizzani, Cristobal Attending Unavailable Juan Manuel Albarran Primary Care Unavailable Attizzani, Cristobal Admitting Unavailable Attizzani, Cristobal Attending Unavailable Juan Manuel Albarran Primary Care Unavailable Goldberg, Beau Admitting Unavailable Goldberg Beau Attending Unavailable Juan Manuel Albarran Primary Care Unavailable Goldberg, Beau Admitting Unavailable Goldberg, Beau Attending Unavailable Juan Manuel Albarran Primary Care Unavailable Goldberg, Beau Admitting Unavailable Goldberg Beau Attending Unavailable Juan Manuel Albarran Primary Care Unavailable DR JUAN MANUEL ALBARRAN Primary Care Unavailable ANIL, DR MANISH Feliz Admitting Unavailable ANIL, DR MANISH Feliz Attending Unavailable TAD, DR YAJAIRA Godoy Consulting Unavailable ANIL, DR MANISH Feliz Consulting Unavailable VINNY ., KILEY Consulting Unavailable HAY ., DR LAST Consulting Unavailable YE VALENTINE Consulting Unavailable JOSEFINA, AHAGAD Admitting Unavailable JOSEFINA, MELISSAD Attending Unavailable ALBARRAN, DR MONTOYA Primary Care Unavailable JOSEFINA, ERI Consulting Unavailable DEION, DR MONTOYA Primary Care Unavailable PAY ., DR DALEY Admitting Unavailable PAY ., DR DALEY Attending Unavailable PAY ., DR DALEY Consulting Unavailable CARLEY ROBERTSON Consulting Unavailable ATTIZZANI, CRISTOBAL Attending Unavailable [facility] Unavail able DO DIAZ CANCHOLA Referring Unava ilable Albarran II, [facility] Unavail able Renu, MsLayne Herr Attending Unavailable ATTIZZANI, CRISTOBAL Attending Unavailable Albarran II, [facility] Unavail able LYNNE, MD MERA GRAVES Attending Unavailabl e LYNNE, MD MERA GRAVES Referring Unavailabl e Albarran [facility], [facility] ATTIZZANI, CRISTOBAL Attending Unavailable Albarran II, [facility] Unavail able ATTIZZANI, CRISTOBAL Attending Unavailable ATTIZZANI, CRISTOBAL Referring Unavailable Albarran II, [facility] Unavail able ATTIZZANI, CRISTOBAL Admitting Unavailable ATTIZZANI, CRISTOBAL Attending Unavailable Albarran II, [facility] Unavail able DO DIAZ CANCHOLA Referring Unava ilable Juan Manuel Albarran Unavailable Juan Manuel Albarran MD Primary Care Provider MERA BATISTA Referring Unavailable JUAN MANUEL ALBARRAN Primary Care Unavailable Deion II, Dr. Juan Manuel Murray Primary Care Jess vailable Lynne, Dr. Mera Graves Attending Unavailab le Albarran II, Dr. Juan Manuel Murray Primary Care Jess vailable Lynne, Dr. Mera Graves Attending Unavailab le Albarran II, Dr. Juan Manuel Murray Primary Care Jess vailable Lynne, Dr. Mera Graves Attending Unavailab le Albarran II, Dr. Juan Manuel Murray Primary Care Jess vailable Lynne, Dr. Mera Graves Attending Unavailab le Albarran II, Dr. Juan Manuel Murray Primary Care Jess vailable Lynne, Dr. Mera Graves Attending Unavailab le Albarran II, Dr. Juan Manuel Murray Primary Care Jess vailable Lynne, Dr. Mera Graves Attending Unavailab le Albarran II, Dr. Juan Manuel Murray Primary Care Jess vailable Lynne, Dr. Mera Graves Attending Unavailab le Albarran II, Dr. Juan Manuel Murray Primary Care Jess vailable Lynne, Dr. Mera Graves Attending Unavailab le Albarran II, Dr. Juan Manuel Murray Primary Care Jess vailable Lynne, Dr. Mera Graves Attending Unavailab le Albarran II, Dr. Juan Manuel Murray Primary Care Jess vailable Lynne, Dr. Mera Graves Attending Unavailab le Albarran II, Dr. Juan Manuel Murray Primary Care Jess vailable Lynne, Dr. Mera Graves Attending Unavailab le Albarran II, Dr. Juan Manuel Murray Primary Care Jess vailable Lynne, Dr. Mera Graves Attending Unavailab le Albarran II, Dr. Juan Manuel Murray Primary Care Jess vailable Lynne, Dr. Mera Graves Attending Unavailab le Albarran II, Dr. Juan Manuel Murray Primary Care Jess vailable Lynne, Dr. Mera Graves Attending Unavailab le Albarran II, Dr. Juan Manuel Murray Primary Care Jess vailable Lynne, Dr. Mera Graves Attending Unavailab le Albarran II, Dr. Juan Manuel Murray Primary Care Jess vailable Lynne, Dr. Mera Graves Attending Unavailab le Albarran II, Dr. Juan Manuel Murray Primary Care Jess vailable Lynne, Dr. Mera Graves Attending Unavailab le Albarran II, Dr. Juan Manuel Murray Primary Care Jess vailable Lynne, Dr. Mera Graves Attending Unavailab le Albarran II, Dr. Juan Manuel Murray Primary Care Jess vailable Lynne, Dr. Mera Graves Attending Unavailab le Albarran II, Dr. Juan Manuel Murray Primary Care Jess vailable Lynne, Dr. Mera Graves Attending Unavailab le Albarran II, Dr. Juan Manuel Murray Primary Care Jess vailable Lynne, Dr. Mera Graves Attending Unavailab le Albarran II, Dr. Juan Manuel Murray Primary Care Jess vailable Lynne, Dr. Mera Graves Attending Unavailab le Albarran II, Dr. Juan Manuel [facility] Jess vailable Lynne, Dr. Mera Graves Attending [facility]ine[facility] Albarran II, Dr. Juan Manuel Murray [facility] Jess vailable Lynne, Dr. Mera Graves Attending [facility] Albarran II, Dr. Juan Manuel Murray [facility] Jess vailable Lynne, Dr. Mera Graves Attending [facility] Albarran II, Dr. Juan Manuel Murray [facility] Jess vailable Lynne, Dr. Mera Graves Attending [facility] Albarran II, Dr. Juan Manuel Murray [facility] Jess vailable Lynne, Dr. Mera Graves Attending [facility] Albarran II, Dr. Juan Manuel Murray [facility] Jess vailable Lynne, Dr. Mera Graves Attending [facility] JUAN MANUEL Stevenson Attending Unavailable Allergies Allergy Classification Reported Allergen(s) Allergy Type Date of Onset Reaction(s) Facility (1 source) ALLERGIES NOT ON FILE; Translations: [ALLERGIES NOT ON FILE] Propensity to adverse reactions (disorder) [facility] Medications Current Medications Medication Drug Class(es) Dates Sig (Normalized) Sig (Original) acetaminophen 325 mg oral tablet (1 source) Start: 01-18-2020 take 2 tablets by mouth every four hours as needed acetaminophen 325 mg oral tablet ; 2 tab(s) orally every 4 hours, As needed, Pain Quantity: 0 Refills: 0 Ordered: 18-Jan-2020 Kiley Bowens Start: 18-Jan-2020 Status: Other Generic Substitution Allowed carvedilol 12.5 mg oral tablet (20 sources) alpha-Adrenergic Krystle, beta-Adrenergic Krystle Start: 02-24-2022 take 18.75 mg by mouth twice daily at mealtime Carvedilol Active 18.75 MG PO Twice daily February 24, 2022 12:00am must administer with a meal/food Start: 02-24-2022 End: 02-24-2022 take 6.25 mg by mouth once daily at mealtime Carvedilol Discontinued 6.25 MG PO Every morning February 24, 2022 12:00am February 24, 2022 10:55am must administer with a meal/food Start: 08-03-2020 take 1 tablet by alan th twice daily Carvedilol 25 MG Oral Tablet TAKE 1 TABLET TWICE DAILY. Quantity: 180 Refills: 3 Ordered: 19-Aug-2022 Mera Batista MD Start : 03-Aug-2020 Active Start: 08-03-2020 take 1 tablet by alan th twice daily Carvedilol 12.5 MG Oral Tablet TAKE 1 1/2 TABLETS TWICE DAILY Quantity: 270 Refills: 3 Ordered: 13-Aug-2021 Mera Batista MD Start : 03-Aug-2020 Active Start: 06-12-2020 End: 10-09-2020 take 1 tablet by mouth twice daily Carvedilol 3.125 MG Oral Tablet Take 1 tablet twice daily Quantity: 0 Refills: 0 Ordered: 28-Sep-2020 Kelly Stallings Start : 03-Aug-2020 Active take 1.5 tablets by mouth twice daily carvedilol 12.5 mg oral tablet ; 1.5 tab(s) orally 2 times a day Quantity: 0 Refills: 0 Ordered: 31-Oct-2021 Dahiana Aguilar Generic Substitution Allowed chlorhexidine gluconate 1.2 mg/ml mouthwash (6 sources) Start: 10-31-2021 End: 11-16-2021 take 15 mL by mouth in the morning Chlorhexidine Gluconate 0.12 % Mouth/Throat Solution RINSE MOUTH WITH 15ML (1 CAPFUL) FOR 30 SECONDS AM AND PM AFTER TOOTHBRUSHING. EXPECTORATE AFTER RINSING, DO NOT SWALLOW Quantity: 1 Refills: 0 Ordered: 31-Oct-2021 Javier Dallas Start : 31-Oct-2021 End : 16-Nov-2021 Active Start: 10-31-2021 Hibiclens 4 % External Liquid Use as directed for preoperative shower. Quantity: 1 Refills: 0 Ordered: 31-Oct-2021 Javier Dallas Start : 31-Oct-2021 Active cholecalciferol 0.05 mg oral tablet (1 source) Vitamin D take 1 tablet by mouth once daily cholecalciferol 50 mcg (2000 intl units) oral tablet ; 1 tab(s) orally once a day Quantity: 0 Refills: 0 Ordered: 14-Nov-2021 Jacqueline Jones Generic Substitution Allowed ergocalciferol 1.25 mg oral capsule (1 source) Provitamin D2 Compound Start: 06-13-19 take 1 capsule by mouth every week ergocalciferol 50,000 intl units (1.25 mg) oral capsule ; 1 cap(s) orally once a week Quantity: 0 Refills: 0 Ordered: 12-Jun-2020 Timothy De Santiago Start: 12-Jun-2020 Status: Other Generic Substitution Allowed levothyroxine sodium 0.2 mg oral tablet (20 sources) l-Thyroxine Start: 10-09-19 take 200 ug by mouth once daily in the morning Levothyroxine Active 200 MCG PO Every morning February 24, 2022 12:00am Start: 10-08-2020 End: 11-06-2020 take 1 tablet by mouth once daily levothyroxine 300 mcg (0.3 mg) oral tablet ; 1 tab(s) orally once a day Quantity: 0 Refills: 0 Ordered: 14-Nov-2021 Jacqueline Jones Start: 08-Oct-2020 End: 06-Nov-2020 Generic Substitution Allowed Start: 06-12-2020 End: 10-09-2020 take 1 tablet by mouth once daily levothyroxine 175 mcg (0.175 mg) oral tablet ; 1 tab(s) orally once a day Quantity: 30 Refills: 3 Ordered: 12-Jun-2020 Timothy De Santiago Start: 12-Jun-2020 End: 09-Oct-2020 Status: Discontinued Generic Substitution Allowed Start: 09-12-2019 End: 02-24-2022 take 175 ug by mouth once daily Levothyroxine Discontinued 175 MCG PO Daily September 11, 2019 11:00pm February 24, 2022 10:45am take 1 tablet by alan th once daily levothyroxine 125 mcg (0.125 mg) oral tablet ; 1 tab(s) orally once a day Quantity: 0 Refills: 0 Ordered: 17-Jan-2020 Soraya Piña Status: Discontinued Generic Substitution Allowed Multiple Vitamins with Iron oral tablet (1 source) take 1 tablet by mouth once daily Multiple Vitamins with Iron oral tablet ; 1 tab(s) orally once a day Quantity: 0 Refills: 0 Ordered: 14-Nov-2021 Jacqueline Jones Generic Substitution Allowed nitroglycerin 0.4 mg sublingual tablet (20 sources) Nitrate Vasodilator Start: 09-12-19 Nitroglycerin Active 0.4 MG SUBLINGUAL every 5 to 15 minutes September 11, 2019 11:00pm omeprazole 20 mg delayed release oral capsule (2 sources) Proton Pump Inhibitor Start: 02-25-20 take 20 mg by mouth once daily Omeprazole Active 20 MG PO Daily February 24, 2022 12:00am rizatriptan 10 mg oral tablet (1 source) Serotonin-1b and Serotonin-1d Receptor Agonist rizatriptan 10 mg oral tablet ; 1 tab(s) orally once a day, As Needed at onset of headache. May repeat every 2 hours as needed. Maximum 3 tablets in 24 hours. Quantity: 0 Refills: 0 Ordered: 17-Jan-2020 Soraya Piña Status: Discontinued Generic Substitution Allowed sacubitril 97 mg / valsartan 103 mg oral tablet (20 sources) Angiotensin 2 Receptor Krystle Start: 05-17-19 take 1 tablet by mouth twice daily Sacubitril-Valsartan (Entresto) 97-103 mg Tablet Active 1 TAB PO Twice daily February 24, 2022 12:00am Start: 05-17-2020 End: 10-09-2020 take 1 tablet by mouth twice daily sacubitril-valsartan 49 mg-51 mg oral tablet ; 1 tab(s) orally 2 times a day Quantity: 60 Refills: 3 Ordered: 12-Jun-2020 Timothy De Santiago Start: 12-Jun-2020 End: 09-Oct-2020 Status: Discontinued Generic Substitution Allowed Completed/Discontinued Medications Medication Drug Class(es) Dates Sig (Normalized) Sig (Original) ascorbic acid 60 mg / beta carotene 5000 unt / copper sulfate 40 mg / dl-alpha tocopheryl acetate 30 unt / sodium selenite 0.04 mg / zinc oxide 40 mg oral tablet (20 sources) Vitamin C take 1 tablet by alan th once daily Multivitamin Plus Iron Adult Oral Tablet TAKE 1 TABLET ONCE DAILY. Quantity: 0 Refills: 0 Ordered: 23-Jun-2021 DO Active Multivitamin Plu s Iron Adult Oral Tablet Quantity: 0 Refills: 0 Ordered: 28-Sep-2020 DO Active aspirin 81 mg delayed release oral tablet (6 sources) Platelet Aggregation Inhibitor, Nonsteroidal Anti-inflammatory Drug Start: 09-12-2019 End: 02-24-2022 take 81 mg by mouth once daily Aspirin Discontinued 81 MG PO Daily September 11, 2019 11:00pm February 24, 2022 10:47am digoxin 0.125 mg oral tablet (20 sources) Cardiac Glycoside Start: 06-12-2020 End: 10-09-2020 take 1 tablet by mouth once daily digoxin 125 mcg (0.125 mg) oral tablet ; 1 tab(s) orally once a day Quantity: 0 Refills: 0 Ordered: 31-Oct-2021 Timothy De Santiago Start: 12-Jun-2020 End: 09-Oct-2020 Generic Substitution Allowed Start: 05-17-2020 take 1 tablet by alan th once daily Digoxin 125 MCG Oral Tablet TAKE 1 TABLET BY MOUTH DAILY Quantity: 0 Refills: 0 Ordered: 17-May-2020 DO Start : 17-May-2020 Active furosemide 40 mg oral tablet (20 sources) Loop Diuretic Start: 05-17-2020 End: 08-10-2020 take 1 tablet by mouth once daily Furosemide 40 MG Oral Tablet TAKE 1 TABLET DAILY. Quantity: 30 Refills: 6 Ordered: 30-Aug-2021 Diaz Canchola DO Start : 17-May-2020 Active lidocaine 0.05 mg/mg medicated patch (1 source) Antiarrhythmic, Amide Local Anesthetic Start: 10-08-2020 End: 10-21-2020 lidocaine 5% topical film ; Apply topically to affected area once a day Quantity: 14 Refills: 0 Ordered: 08-Oct-2020 Ladonna Mascorro Start: 08-Oct-2020 End: 21-Oct-2020 Status: Discontinued Generic Substitution Allowed Magnesium Oxide (20 sources) Start: 01-31-2020 take 1 tablet by mouth once daily Magnesium Oxide 400 (241.3 Mg) MG Oral Tablet TAKE 1 TABLET BY MOUTH DAILY Quantity: 90 Refills: 0 Ordered: 31-Jan-2020 DO Start : 31-Jan-2020 Active Start: 01-31-2020 take 1 tablet by alan th once daily Magnesium Oxide 400 (241.3 Mg) MG TABS TAKE 1 TABLET BY MOUTH DAILY Quantity: 90 Refills: 0 Ordered: 31-Jan-2020 DO Start : 31-Jan-2020 Active take 1 tablet by alan th once daily magnesium oxide 400 mg oral tablet ; 1 tab(s) orally once a day Quantity: 0 Refills: 0 Ordered: 14-Nov-2021 Jacqueline Jones Generic Substitution Allowed metoprolol tartrate 50 mg oral tablet (7 sources) beta-Adrenergic Krystle Start: 09-12-2019 End: 02-24-2022 take 50 mg by mouth twice daily Metoprolol Tartrate Discontinued 50 MG PO Twice daily September 11, 2019 11:00pm February 24, 2022 10:46am take 1.5 tablets by mouth once d aily Metoprolol Succinate ER 50 mg oral tablet, extended release ; 1.5 tab(s) orally once a day Quantity: 0 Refills: 0 Ordered: 17-Jan-2020 Soraya Piña Status: Discontinued Generic Substitution Allowed Multiple Vitamins with Minerals oral tablet (1 source) Start: 06-12-2020 End: 10-09-2020 take 1 tablet by mouth once daily Multiple Vitamins with Minerals oral tablet ; 1 tab(s) oral once a day Quantity: 0 Refills: 0 Ordered: 31-Oct-2021 Timothy De Santiago Start: 12-Jun-2020 End: 09-Oct-2020 Status: Other Generic Substitution Allowed spironolactone 25 mg oral tablet (20 sources) Aldosterone Antagonist Start: 06-12-2020 End: 10-09-2020 take 1 tablet by mouth once daily spironolactone 25 mg oral tablet ; 0.5 tab(s) orally once a day Quantity: 30 Refills: 3 Ordered: 12-Jun-2020 Timothy De Santiago Start: 12-Jun-2020 End: 09-Oct-2020 Status: Discontinued Generic Substitution Allowed Comments: It is very important that you take or use this exactly as directed. Do not skip doses or discontinue unless directed by your doctor.May cause drowsiness or dizziness. Start: 05-17-2020 take 0.5 tablet by m outh once daily Spironolactone 25 MG Oral Tablet take 1/2 tablet daily Quantity: 15 Refills: 11 Ordered: 12-Nov-2020 Diaz Canchola DO Start : 17-May-2020 Active spironolactone 1 00 mg oral tablet ; 1 - oral Quantity: 0 Refills: 0 Ordered: 21-Oct-2021 Lavern Orozco Status: Discontinued Generic Substitution Allowed Comment on above: It is very important that you take or use this exactly as directed. Do not skip doses or discontinue unless directed by your doctor.May cause drowsiness or dizziness. traMADol hydrochloride 50 mg oral tablet (20 sources) Opioid Agonist Start: End: 1 take 1 tablet by mouth twice daily as needed for pain traMADol HCl - 50 MG Oral Tablet TAKE 1 TABLET BY MOUTH TWICE DAILY NEEDED FOR PAIN Quantity: 10 Refills: 0 Ordered: 17-Oct-2020 DO Start : 08-Oct-2020 Active valsartan 80 mg oral tablet (6 sources) Angiotensin 2 Receptor Krystle Start: 0 End: 2 take 80 mg by mouth once daily Valsartan Discontinued 80 MG PO Daily September 11, 2019 11:00pm February 24, 2022 10:47am Vitamin D CAPS (19 sources) Vitamin D CAPS T DAT 1 CAPSULE Daily Quantity: 0 Refills: 0 Ordered: 23-Jun-2021 DO Active Problems Active Problems Problem Classification Problem Date Documented Date Episodic/Chronic Administrative/social admission (20 sources) Patient encounter status; Translations: [Other specified counseling] Episodic Cardiac dysrhythmias (20 sources) Nonsustained ventricular tachycardia ; Translations: [Paroxysmal ventricular tachycardia] Onset: 10-31-2021 Chronic Chronic kidney disease (20 sources) Chronic kidney disease; Translations: [Chronic kidney disease, unspecified] Chronic Chronic kidney disease (1 source) Chronic kidney disease; Translations: [Chronic kidney disease, stage 3 unspecified] Onset: 10-31-2021 Conditions associated with dizziness or vertigo (20 sources) Lightheadedness; Translations: [Dizziness and giddiness] Episodic Conduction disorders (20 sources) Complete atrioventricular block; Translations: [Atrioventricular block, complete] Onset: 10-31-2021 02-04-2023 Chronic Congestive heart failure; nonhypertensive (20 sources) Heart failure; Translations: [Heart failure, unspecified] Onset: 10-31-2021 Chronic Crushing injury or internal injury (4 sources) Crushing injury of left middle finger, initial encounter; Translations: [CRUSHING INJURY LT MID FINGER INIT] Onset: 08-15-2022 Episodic Diverticulosis and diverticulitis (1 source) Diverticulosis of large intestine without perforation or abscess without bleeding; Translations: [DVRTCLOS LG INT NO PERF/ABSC W/O BL] Onset: 01-10-2022 Chronic E Codes: Other specified and classifiable (1 source) Caught, crushed, jammed, or pinched between moving objects, initial encounter; Translations: [CAUGHT CRUSH/PINCH BTWN MOV OBJ INT] Onset: 08-18-2022 Episodic Essential hypertension (20 sources) Hypertensive disorder; Translations: [Unspecified essential hypertension] Chronic Fracture of upper limb (1 source) Displaced fracture of distal phalanx of left middle finger, initial encounter for closed fracture; Translations: [DSPL FX DIST PHAL LT MF INIT DUY FX] Onset: 08-18-2022 Episodic Heart valve disorders (20 sources) Tricuspid valve regurgitation; Translations: [Diseases of tricuspid valve] Onset: 09-09-2021 Chronic Comment on above: severe, echo Septemb er 2019; severe, echo 12/2019; Hypertension with complications and secondary hypertension (5 sources) Hypertensive heart disease with heart failure; Translations: [Hypertensive chronic kidney disease with stage 1 through stage 4 chronic kidney disease, or unspecified chronic kidney disease] Onset: 10-31-2021 Chronic Menopausal disorders (1 source) Hormone replacement therapy; Translations: [HORMONE REPLACEMENT THERAPY] Onset: 08-18-2022 Episodic Nutritional deficiencies (4 sources) Vitamin D deficiency, unspecified; Translations: [VITAMIN D DEFICIENCY UNSPECIFIED] Onset: 02-11-2022 Chronic Open wounds of extremities (1 source) Laceration without foreign body of left middle finger with damage to nail, initial encounter; Translations: [LAC W/O FB LT MF W/DAMAGE NAIL INIT] Onset: 08-18-2022 Episodic Other lower respiratory disease (1 source) Chronic pulmonary edema; Translations: [Chronic pulmonary edema] Onset: 10-31-2021 Chronic Other lower respiratory disease (20 sources) Dyspnea on exertion; Translations: [Other respiratory abnormalities] Episodic Other nutritional; endocrine; and metabolic disorders (20 sources) Overweight; Translations: [Overweight] Episodic Lindsey-; endo-; and myocarditis; cardiomyopathy (except that caused by tuberculosis or sexually transmitted disease) (20 sources) Cardiomyopathy; Translations: [Other primary cardiomyopathies] Onset: 11-14-2021 02-04-2023 Chronic Pulmonary heart disease (20 sources) Pulmonary hypertension; Translations: [Other chronic pulmonary heart diseases] Onset: 11-14-2021 Chronic Residual codes; unclassified (20 sources) History of clinical finding in subject; Translations: [Other specified personal history presenting hazards to health] Episodic Residual codes; unclassified (20 sources) Body mass index 20-24 - normal; Translations: [Body Mass Index between 19-24, adult] Episodic Residual codes; unclassified (3 sources) History of heart valve repair; Translations: [Other postprocedural status] Resolved: 11-14-2021 11-14-2021 Episodic Residual codes; unclassified (1 source) History of repair of mitral valve; Translations: [Other postprocedural status] Episodic Respiratory failure; insufficiency; arrest (adult) (1 source) Respiratory failure; insufficiency; arrest (adult); Translations: [I34.0 - Nonrheumatic mitral (valve) insufficiency] Onset: 07-31-2021 Screening and history of mental health and substance abuse codes (15 sources) Ex-smoker; Translations: [Personal history of tobacco use] Onset: 11-14-2021 Episodic Thyroid disorders (20 sources) Hypothyroidism; Translations: [Unspecified acquired hypothyroidism] Onset: 11-14-2021 Chronic Unclassified (2 sources) MITRAL REGURGITATION/CPT -09745 09-25-2021 Comment on above: MITRAL REGURGITATION /CPT -96839 Unclassified (1 source) 6M FU [facility] 08-13-2021 Comment on above: 6M FU [facility] Unclassified (1 source) CLINIC 08-15-2021 Comment on above: CLINIC Unclassified (1 source) VIRTUAL VISIT--1 MO FU-- --[email or web address] 09-24-2021 Comment on above: VIRTUAL VISIT--1 MO FU-- --[email or web address] Unclassified (1 source) VIRTUAL VISIT--1 WK FU-- --[email or web address] 09-24-2021 Comment on above: VIRTUAL VISIT--1 WK FU-- --[email or web address] Unclassified (1 source) Encounter for preprocedural laboratory examination; Translations: [Encounter for preprocedural laboratory examination] Onset: 02-20-2022 Unclassified (1 source) CONTACT W/AND (SUSP) EXPOS COVID-19; Translations: [CONTACT W/AND (SUSP) EXPOS COVID-19] Onset: 01-10-2022 Past or Other Problems Problem Classification Problem Date Documented Da te Episodic/Chronic Abdominal pain (9 sources) Abdominal pain; Translations: [Unspecified abdominal pain] Onset: 01-06-2022 01-15-2022 Episodic Heart valve disorders (1 source) Cardiac murmur, unspecified; Translations: [Cardiac murmur, unspecified] Onset: 10-31-2021 Episodic Immunizations and screening for infectious disease (1 source) Encounter for immunization; Translations: [ENCOUNTER FOR IMMUNIZATION] Onset: 01-10-2022 Episodic Other aftercare (2 sources) Other penitentiary (current) drug therapy; Translations: [OTH [employer] ENGINEER CURRENT DRUG THERAPY] Onset: 10-31-2021 Episodic Other gastrointestinal disorders (1 source) Constipation, unspecified; Translations: [CONSTIPATION UNSPECIFIED] Onset: 01-10-2022 Episodic Other lower respiratory disease (4 sources) Dyspnea, unspecified; Translations: [Dyspnea, unspecified] Onset: 10-31-2021 Episodic Other lower respiratory disease (1 source) Other forms of dyspnea; Translations: [Other forms of dyspnea] Onset: 10-31-2021 Episodic Residual codes; unclassified (1 source) Acquired absence of other specified parts of digestive tract; Translations: [Acquired absence of other specified parts of digestive tract] Onset: 11-14-2021 Episodic Residual codes; unclassified (1 source) Do not resuscitate; Translations: [Do not resuscitate] Onset: 11-14-2021 Episodic Residual codes; unclassified (1 source) Procedure and treatment not carried out for other reasons; Translations: [Procedure and treatment not carried out for other reasons] Onset: 11-14-2021 Episodic Residual codes; unclassified (1 source) Localized edema; Translations: [Localized edema] Onset: 10-31-2021 Episodic Results Test Name Value Interpretation Reference Range Facility Cardiac Device Check - Remot sheryl 02-04-2023 Radiology Study observation (narrative) [facility] Work Phone: Cardiac Device Check - Remot eOrdered By: Mera Batista on 02-04-2023 [facility] Work Phone: XR FINGER MIN 2 VIEWSon 08-04 XR FINGER MIN 2 VIEWS IMAGES REVIEWED: X R FINGER MIN 2 VIEWS COMPARISON: None available. CLINICAL INDICATION: Pain FINDINGS/IMPRESSION: Acute minimally displaced fracture of the distal tuft third distal phalanx. No additional acute fractures definitely seen. Question chronic deformity of the base of the third middle phalanx on the lateral view. No dislocation. Electronically authenticated by: CARLEY ROBERTSON Date: 2022-08-15 18:02 Normal [facility] Blood Urea Nitrogenon 2021 Urea nitrogen [Mass/Vol] 5 mg/dL Low 9- [facility] Comment on above: Performed By: #### B UN, CREAT ####[facility] [id number] [place] [id number] [facility] CT abdomen pelvis w conon CT abdomen pelvis w con [facility] [address] [place] [address] [place] [address] CT Scan Report Signed Patient: Corky Duenas MR#: [id number] 691 : 1950 Acct:[id number] Age/Sex: 71 / M ADM Date: 03/14/22 Loc: CT Room: Type: [facility] Attending Dr: Beau Goldberg MD Copies to: Beau Goldberg MD Ordering Provider: Beau Goldberg MD Date of Service: 03/14/22 CT/CT abdomen pelvis w con: persistant ABD pain, vomiting;Abdominal pain CT ABDOMEN AND PELVIS WITH INTRAVENOUS CONTRAST: CLINICAL HISTORY: Mid abdominal pain for 1 month. Nausea. COMPARISON: CT abdomen and pelvis 01/15/2022 TECHNIQUE: Spiral images were obtained through the abdomen and pelvis following the administration of intravenous contrast. This CT exam was performed using one or more following dose reduction techniques: Automated exposure control, adjustment of the mA and/or kV according to patient size, or use of iterative reconstruction technique. FINDINGS: Lung Bases: [Cysts right lower lobe. Calcified granuloma left lower lobe.] Organs:Liver cysts. Gallbladder has been removed. Spleen pancreas and adrenal glands all appear unremarkable. Cystic changes involving the kidneys. Punctate nonobstructing stone right kidney. Abdominal aorta appears normal in caliber.[ GI: Stomach is grossly unremarkable. Small bowel appears nondilated.[Colonic diverticulosis. Pelvis:[Urinary bladder is grossly unremarkable. Prostate gland is normal in size.] Peritoneum/Retroperitoneu m:No free air, free fluid or lymphadenopathy.[ Abd wall/Bones:Abdominal wall demonstrates no acute findings. Osseous structures demonstrate no acute findings.[ CT/CT abdomen pelvis w con IMPRESSION: No acute findings. Impression dictated by: Ethan Haywood Jr., Wally03/14/2022 1:25 PM Dictation Location: [place] [address] Transcribed By: [facility] 03/14/22 132 Dictated By: Ethan Haywood Jr, DO 03/14/22 1320 Signed By: 03/14/22 1325 [facility] Creatinineon 03-14-2022 Creatinine [Mass/Vol] 1.04 mg/dL Normal 0.64-1.27 [facility] Comment on above: Performed By: #### B XI, CREAT ####[address] Estimated GFR ( Brenda > 60 [facility] Comment on above: Result Comment: GFR estimated reference range: According to KDOQI guidelines, <60 ml/min/1.73m2 is sufficient to diagnose a patient with chronic kidney disease. PERFORMED BY: [facility] [address] [place] [address] PATHOLOGIST GEOLOGICAL TECHNICIAN BAY THRASHER M.D. Performed By: #### B XI, CREAT ####[address] Estimated GFR (Non- Am > 60 [facility] Comment on above: Performed By: #### B XI, CREAT ####[address] Creatinine and Glomerular fi ltration rate.predicted panel (S/P/Bld)Ordered By: Beau Goldberg on 03-14-2022 Creatinine [Mass/Vol] 1.04 mg/dL 0.64-1.27 [facility] Estimated glomerular filtrat ion rate (GFR) non- AmericanOrdered By: Beau Goldberg on 03-14-2022 GFR/1.73 sq M.predicted among non-blacks MDRD (S/P/Bld) [Vol rate/Area] > 60 mL/Min [facility] No Panel InformationOrdered By: Beau Goldberg on 03-14-2022 Estimated GFR () > 60 mL/Min [facility] Comment on above: GFR estimated refere nce range: According to KDOQI guidelines, <60 ml/min/1.73m2 is sufficient to diagnose a patient with chronic kidney disease. Pharmacy Creatinine Clearance (Chem N/A [facility] Serum or plasma urea nitroge n measurement (mass/volume)Ordered By: Beau Goldberg on 03-14-2022 Urea nitrogen [Mass/Vol] 5 mg/dL 12-27 [facility] COVID-19 Antigenon 2 COVID-19 Antigen Healthcare Worker?: N Reference Range: Negative Negative results, from patients with symptom onset beyond five days, should be treated as presumptive and confirmation with a molecular assay, if necessary, for patient management, may be performed. Negative results do not rule out COVID-19 and should not be used as the sole basis for treatment or patient management decisions, including infection control decisions. Negative results should be considered in the context of a patient's recent exposures, history and the presence of clinical signs and symptoms consistent with COVID-19. The Valencia SARS Antigen JOSEPH does not differentiate between SARS-CoV and SARS-CoV-2. This test was developed and its performance characteristic determined by [employer] and validated at [facility]. This test has not been FDA cleared or approved. This test has been authorized by FDA under an Emergency Use Authorization (EUA). This test has been validated in accordance with the FDA's Guidance Document (Policy for Diagnostics Testing in Laboratories Certified to Perform High Complexity Testing under CLIA prior to Emergency Use Authorization for Coronavirus Disease-2019 during the Public Health Emergency) issued on July 07, 2019. This test is only authorized for the duration of time the declaration that circumstances exist justifying the authorization of the emergency use of in vitro diagnostic tests for detection of SARS-CoV-2 virus and/or diagnosis of COVID-19 infection under section 564(b)(1) of the Act, 21 U.S.C. 360bbb-3(b)(1), unless the authorization is terminated or revoked sooner. SARS-CoV+SARS-CoV-2 (COVID-19) Ag [Presence] in Respiratory specimen by Rapid immunoassay Negative for SARS Antigen by JOSEPH PERFORMED BY: [place] [address] PATHOLOGIST GEOLOGICAL TECHNICIAN BAY THRASHER M.D. Normal [facility] Comment on above: Performed By: #### C OVID-19 VALENCIA, SOFIANEG #### [facility] [address] [place] [address] COVID-19 SOFIAOrdered By: Johnathan Goldberg on 02-20-2022 SARS-CoV+SARS-CoV-2 (COVID-19) Ag IA.rapid Ql (Resp) Negative Negative [facility] Comment on above: This is a duplicate Valencia SARS Antigen (JOSEPH) result to be used for statistical tracking purpose only. No Panel InformationOrdered By: Beau Goldberg on 02-20-2022 SARS Antigen (LFIA) [facility] Valencia Ag Negativeon 02-21-20 22 Valencia Ag Negative Negative Normal Negative [facility] Comment on above: Result Comment: This is a duplicate Valencia SARS Antigen (JOSEPH) result to be used for statistical tracking purpose only. PERFORMED BY: [place] [phone] PATHOLOGIST GEOLOGICAL TECHNICIAN BAY THRASHER M.D. Performed By: #### C OVID-19 VALENCIA, SOFIANEG #### [facility] [address] [place] [address] FREE T3on 02-11-2022 FREE T3 2.24 pg/mlL Normal 2.18-3.98 [facility] Comment on above: Performed By: #### F T3, TSH #### [facility] [address] [address] [address] Apolonia Norwood FREE T4on 02-11-2022 Free T4 [Mass/Vol] 0.68 ng/dL Critically low 0.76-1.46 Th e [facility] Comment on above: Performed By: #### F T4 #### [facility] [address] [place] [address] Dr. Apolonia [place] TSHon 02-11-2022 TSH 17.836 uIU/mL Critically high 0.358-3.740 [facility] Comment on above: Performed By: #### F T3, TSH #### [facility] [address] [place], [place] [address] Dr. Apolonia [place] Albumin [Mass/volume] in Ser um or PlasmaOrdered By: Marc Rosario on 01-15-2022 Albumin [Mass/Vol] 3.5 g/dL 3.2-5.5 [facility] Amylaseon 01-15-2022 Amylase [Catalytic activity/Vol] 123 U/L High 28-100 [facility] Comment on above: Performed By: #### L IPASE, CBC, CMP, HS TROP, KILEY #### [facility] [address] [place] [address] [place] Basophils Auto (Bld) [#/Vol] Ordered By: Marc Rosario on 01-15-2022 Basophils (Bld) [#/Vol] 0.1 10*3/uL 0.0-0.2 [facility] Basophils/100 WBC Auto (Bld) Ordered By: Marc Rosario on 01-15-2022 Basophils/100 WBC (Bld) 0.9 % . [facility] Bilirubin Test strip Ql (U)O rdered By: Marc Rosario on 01-15-2022 Bilirubin Ql (U) Negative Negative [facility] CT abdomen pelvis wo conon 1 CT abdomen pelvis wo con [facility] [address] [place] [address] CT Scan Report Signed Patient: Corky Duenas MR#: [id number] 691 : 1950 Acct:[id number] Age/Sex: 71 / M ADM Date: 01/15/22 Loc: ER Room: Type: [facility] ER Attending Dr: Copies to: Marc Rosario MD Ordering Provider: Marc Rosario MD Date of Service: 01/15/22 CT/CT abdomen pelvis wo con: abdominal pain CT ABDOMEN AND PELVIS WITHOUT CONTRAST COMPARISON: None CLINICAL DATA: Right upper quadrant pain for the past week. Spiral images were obtained through the abdomen and pelvis without contrast. This CT exam was performed using one or more following dose reduction techniques: Automated exposure control, adjustment of the mA and/or kV according to patient size, or use of iterative reconstruction technique. Limited cuts through the lung bases show no contributory pulmonary findings. The heart is borderline prominent. There is gynecomastia. Assessment of the intra-abdominal organs is slightly limited by the absence of contrast. There are scattered hepatic hypodensities measuring up to 16 mm in size. These are probably cysts. The gallbladder is surgically absent. The spleen, pancreas and adrenal glands show no acute findings. There are 3 mm bilateral renal stones. There are multiple bilateral renal hypodensities measuring up to 3.4 cm on the right that are probably cysts. There are also 2 hyperdense nodular areas most a centimeter in size on the right that may be hemorrhagic. No hydronephrosis is noted. There is no ureteral dilatation though there is periureteral stranding. No ureteral stones are present. There is atherosclerotic plaque involving an ectatic aorta as well as the iliac arteries. There is a small umbilical hernia containing fat. There are small scattered abdominal lymph nodes. No ascites is seen. The stomach is decompressed. The small bowel loops are not significantly distended though several contain air and some fluid. There is stool along the colon. The appendix is surgically absent. There is subtle levoscoliotic curvature and degenerative changes at the spine, greatest at the lower facets. Images through the pelvis show no dilated small bowel. There is mild stool at the distal colon. There are sigmoid diverticula, without associated active inflammation. The urinary bladder is unremarkable for the degree of distention. The prostate is within normal limits for size. No ascites is seen. CT/CT abdomen pelvis wo con IMPRESSION: SUSPECTED HEPATIC AND RENAL CYSTS INCLUDING A COUPLE RIGHT RENAL NODULES THAT MAY BE HEMORRHAGIC. BILATERAL NEPHROLITHIASIS, WITHOUT OBSTRUCTION. DIVERTICULOSIS. NO OTHER ACUTE FINDINGS. Impression dictated by: Ludy Feldman M.D.01/15/2022 6:05 PM Dictation Location: [place] [address] Transcribed By: REJI 01/15/221804 Dictated By: Ludy Feldman MD 01/15/221753 Signed By: 01/15/221804 Normal [facility] Color Auto (U)Ordered By: Angie Rosario on 01-15-2022 Color (U) Yellow Yellow [facility] Complete Blood Count Auto Di ffon 01-15-2022 Basophils (Bld) [#/Vol] 0.1 10*3/uL Normal 0.0-0.2 [facility] Comment on above: Result Comment: PERF ORMED BY: [place] [address] PATHOLOGIST GEOLOGICAL TECHNICIAN BAY THRASHER M.D. Performed By: #### L IPASE, CBC, CMP, HS TROP, KILEY #### [address] Basophils/100 WBC (Bld) 0.9 % Normal . [facility] Comment on above: Performed By: #### L IPASE, CBC, CMP, HS TROP, KILEY #### [address] Eosinophils (Bld) [#/Vol] 0.2 10*3/uL Normal 0.0-0.45 [facility] Comment on above: Performed By: #### L IPASE, CBC, CMP, HS TROP, KILEY #### [address] Eosinophils/100 WBC (Bld) 3.0 % Normal . [facility] Comment on above: Performed By: #### L IPASE, CBC, CMP, HS TROP, KILEY #### [address] Erythrocyte distribution width (RBC) [Ratio] 14.0 % Normal 12.0-14.8 [facility] Comment on above: Performed By: #### L IPASE, CBC, CMP, HS TROP, KILEY #### [address] Hematocrit (Bld) [Volume fraction] 42.2 % Normal 38.8-50.0 [facility] Comment on above: Performed By: #### L IPASE, CBC, CMP, HS TROP, KILEY #### [address] Hemoglobin (Bld) [Mass/Vol] 14.2 g/dL Normal 13.0-17.0 [facility] Comment on above: Performed By: #### L IPASE, CBC, CMP, HS TROP, KILEY #### [address] Lymphocytes (Bld) [#/Vol] 1.4 10*3/uL Normal 1.00-4.8 [facility] Comment on above: Performed By: #### L IPASE, CBC, CMP, HS TROP, KILEY #### [address] Lymphocytes/100 WBC (Bld) 22.1 % Normal . [facility] Comment on above: Performed By: #### L IPASE, CBC, CMP, HS TROP, KILEY #### [address] MCH (RBC) [Entitic mass] 33.2 pg Normal 27.5-35.2 [facility] Comment on above: Performed By: #### L IPASE, CBC, CMP, HS TROP, KILEY #### [address] MCV (RBC) [Entitic vol] 99.0 fL Normal 83.5-101 [facility] Comment on above: Performed By: #### L IPASE, CBC, CMP, HS TROP, KILEY #### [address] Mean Corpuscular HGB Conc 33.5 g/dL Normal 32.5-35.6 [facility] Comment on above: Performed By: #### L IPASE, CBC, CMP, HS TROP, KILEY #### [address] Monocytes (Bld) [#/Vol] 0.5 10*3/uL Normal 0.0-0.8 [facility] Comment on above: Performed By: #### L IPASE, CBC, CMP, HS TROP, KILYE #### [address] Monocytes/100 WBC (Bld) 7.1 % Normal . [facility] Comment on above: Performed By: #### L IPASE, CBC, CMP, HS TROP, KILEY #### [facility] [address] [place] [address] [place] Neutrophils (Bld) [#/Vol] 4.3 10*3/uL Normal 1.8-7.7 [facility] Comment on above: Performed By: #### L IPASE, CBC, CMP, HS TROP, KILEY #### [facility] [address] [place] [address] [place] Neutrophils/100 WBC (Bld) 66.9 % Normal . [facility] Comment on above: Performed By: #### L IPASE, CBC, CMP, HS TROP, KILEY #### [place] [address] [place] Nucleated RBC/100 WBC (Bld) [Ratio] 0.1 % Normal 0-0.5 [facility] Comment on above: Performed By: #### L IPASE, CBC, CMP, HS TROP, KILEY #### [place] [address] [place] Platelet mean volume (Bld) [Entitic vol] 8.4 fL Normal 6.6-10.1 [facility] Comment on above: Performed By: #### L IPASE, CBC, CMP, HS TROP, KILEY #### [place] [address] [place] Platelets (Bld) [#/Vol] 263 10*3/uL Normal 150-450 [facility] Comment on above: Performed By: #### L IPASE, CBC, CMP, HS TROP, KILEY #### [place] [address] [place] RBC (Bld) [#/Vol] 4.26 10*6/uL Normal 3.90-5.60 [facility] Comment on above: Performed By: #### L IPASE, CBC, CMP, HS TROP, KILEY #### [place] [address] [place] WBC (Bld) [#/Vol] 6.4 10*3/uL Normal 4.5-11.0 [facility] Comment on above: Performed By: #### L IPASE, CBC, CMP, HS TROP, KILEY #### [address] Comprehensive Metabolic Pane isis 01-15-2022 Albumin [Mass/Vol] 3.5 g/dL Normal 3.2-5.5 [facility] Comment on above: Performed By: #### L IPASE, CBC, CMP, HS TROP, KILEY #### [address] Albumin/Globulin [Mass ratio] 1.0 {ratio} Normal [facility] Comment on above: Performed By: #### L IPASE, CBC, CMP, HS TROP, KILEY #### [address] ALP [Catalytic activity/Vol] 58 U/L Normal 32-92 [facility] Comment on above: Performed By: #### L IPASE, CBC, CMP, HS TROP, KILEY #### [address] ALT [Catalytic activity/Vol] 16 U/L Normal 10-60 [facility] Comment on above: Performed By: #### L IPASE, CBC, CMP, HS TROP, KILEY #### [address] Anion gap [Moles/Vol] 15.2 mmol/L High 6.0-15.0 [facility] Comment on above: Performed By: #### L IPASE, CBC, CMP, HS TROP, KILEY #### [address] AST [Catalytic activity/Vol] 22 U/L Normal 10-42 [facility] Comment on above: Performed By: #### L IPASE, CBC, CMP, HS TROP, KILEY #### [address] Bilirubin [Mass/Vol] 0.9 mg/dL Normal 0.3-1.2 [facility] Comment on above: Performed By: #### L IPASE, CBC, CMP, HS TROP, KILEY #### [address] [place] [address] [place] Calcium [Mass/Vol] 8.9 mg/dL Normal 8.2-10.2 [facility] Comment on above: Performed By: #### L IPASE, CBC, CMP, HS TROP, KILEY #### [facility] [address] Chloride [Moles/Vol] 103 mmol/L Normal 95-114 [facility] Comment on above: Performed By: #### L IPASE, CBC, CMP, HS TROP, KILEY #### [facility] [address] CO2 [Moles/Vol] 24.4 mmol/L Normal 22.0-30.[address] [facility] Comment on above: Performed By: #### L IPASE, CBC, CMP, HS TROP, KILEY #### [address] Creatinine [Mass/Vol] 1.12 mg/dL Normal 0.64-1.27 [facility] Comment on above: Performed By: #### L IPASE, CBC, CMP, HS TROP, KILEY #### [address] Creatinine Clr Calc Pharmacy 54.59 [facility] Comment on above: Performed By: #### L IPASE, CBC, CMP, HS TROP, KILEY #### [address] Estimated GFR ( Brenda > 60 [facility] Comment on above: Result Comment: GFR estimated reference range: According to KDOQI guidelines, <60 ml/min/1.73m2 is sufficient to diagnose a patient with chronic kidney disease. Performed By: #### L IPASE, CBC, CMP, HS TROP, KILEY #### [address] Estimated GFR (Non- Am > 60 [facility] Comment on above: Performed By: #### L IPASE, CBC, CMP, HS TROP, KILEY #### [address] Globulin (S) [Mass/Vol] 3.4 g/dL Normal [facility] Comment on above: Performed By: #### L IPASE, CBC, CMP, HS TROP, KILEY #### [facility] [address] Glucose [Mass/Vol] 86 mg/dL Normal 70-100 [facility] Comment on above: Result Comment: [facility] Glucose Reference Range is dependent on time and content of last meal. Glucose of more than 200 mg/dL in a nonstressed, ambulatory subject supports the diagnosis of Diabetes Mellitus. ADA recommended reference range Performed By: #### L IPASE, CBC, CMP, HS TROP, KILEY #### [address] Potassium [Moles/Vol] 3.6 mmol/L Normal 3.5-5.1 [facility] Comment on above: Performed By: #### L IPASE, CBC, CMP, HS TROP, KILEY #### [address] Protein [Mass/Vol] 6.9 g/dL Normal 6.1-7.9 [facility] Comment on above: Performed By: #### L IPASE, CBC, CMP, HS TROP, KILEY #### [address] Sodium [Moles/Vol] 139 mmol/L Normal 136-146 [facility] Comment on above: Performed By: #### L IPASE, CBC, CMP, HS TROP, KILEY #### [address] Urea nitrogen [Mass/Vol] 11 mg/dL Normal 9-23 [facility] Comment on above: Performed By: #### L IPASE, CBC, CMP, HS TROP, KILEY #### [address] Creatinine and Glomerular fi ltration rate.predicted panel (S/P/Bld)Ordered By: Marc Rosario on 01-15-2022 Creatinine [Mass/Vol] 1.12 mg/dL 0.64-1.27 [facility] Eosinophils Auto (Bld) [#/Vo l]Ordered By: Marc Rosario on 01-15-2022 Eosinophils (Bld) [#/Vol] 0.2 10*3/uL 0.0-0.45 [facility] Eosinophils/100 WBC Auto (Bl d)Ordered By: Marc Rosario on 01-15-2022 Eosinophils/100 WBC (Bld) 3.0 % . [facility] Erythrocyte distribution wid th Auto (RBC) [Ratio]Ordered By: Marc Rosario on 01-15-2022 Erythrocyte distribution width (RBC) [Ratio] 14.0 % 12.0-14.8 [facility] Estimated glomerular filtrat ion rate (GFR) non- AmericanOrdered By: Marc Rosario on 01-15-2022 GFR/1.73 sq M.predicted among non-blacks MDRD (S/P/Bld) [Vol rate/Area] > 60 mL/Min [facility] Globulin Calc (S) [Mass/Vol] Ordered By: Marc Rosario on 01-15-2022 Globulin (S) [Mass/Vol] 3.4 g/dL [facility] Hematocrit Auto (Bld) [Volum e fraction]Ordered By: Marc Rosario on 01-15-2022 Hematocrit (Bld) [Volume fraction] 42.2 % 38.8-50.0 [facility] Hemoglobin [Mass/volume] in BloodOrdered By: Marc Rosario on 01-15-2022 Hemoglobin (Bld) [Mass/Vol] 14.2 g/dL 13.0-17.0 [facility] Ketones Auto test strip (U) [Mass/Vol]Ordered By: Marc Rosario on 01-15-2022 Ketones (U) [Mass/Vol] Negative Negative [facility] - Chemistry and C hemistry - challengeOrdered By: Marc Rosario on 01-15-2022 Lipase [Catalytic activity/Vol] 32.0 U/L 22-51 [facility] Laboratory - Hematology and Cell countsOrdered By: Marc Rosario on 01-15-2022 Nucleated RBC/100 WBC (Bld) [Ratio] 0.1 % 0-0.5 [facility] Leukocytes [#/volume] in Blo od by Automated countOrdered By: Marc Rosario on 01-15-2022 WBC (Bld) [#/Vol] 6.4 10*3/uL 4.5-11.0 [facility] Lipaseon 01-15-2022 Lipase [Catalytic activity/Vol] 32.0 U/L Normal 22-51 [facility] Comment on above: Result Comment: PERF ORMED BY: [facility] [address] [place] [address] PATHOLOGIST GEOLOGICAL TECHNICIAN BAY THRASHER M.D. Performed By: #### L IPASE, CBC, CMP, HS TROP, KILEY #### [facility] [address] Lymphocytes Auto (Bld) [#/Vo l]Ordered By: Marc Rosario on 01-15-2022 Lymphocytes (Bld) [#/Vol] 1.4 10*3/uL 1.00-4.8 [facility] Lymphocytes/100 WBC Auto (Bl d)Ordered By: Marc Rosario on 01-15-2022 Lymphocytes/100 WBC (Bld) 22.1 % . [facility] MCH Auto (RBC) [Entitic mass ]Ordered By: Marc Rosario on 01-15-2022 MCH (RBC) [Entitic mass] 33.2 pg 27.5-35.2 [facility] MCHC Auto (RBC) [Mass/Vol]Or dered By: Marc Rosario on 01-15-2022 MCHC (RBC) [Mass/Vol] 33.5 g/dL 32.5-35.6 [facility] MCV Auto (RBC) [Entitic vol] Ordered By: Marc Rosario on 01-15-2022 MCV (RBC) [Entitic vol] 99.0 fL 83.5-101 [facility] Monocytes Auto (Bld) [#/Vol] Ordered By: Marc Rosario on 01-15-2022 Monocytes (Bld) [#/Vol] 0.5 10*3/uL 0.0-0.8 [facility] Monocytes/100 WBC Auto (Bld) Ordered By: Marc Rosario on 01-15-2022 Monocytes/100 WBC (Bld) 7.1 % . [facility] Neutrophils Auto (Bld) [#/Vo l]Ordered By: Marc Rosario on 01-15-2022 Neutrophils (Bld) [#/Vol] 4.3 10*3/uL 1.8-7.7 [facility] Neutrophils/100 WBC Auto (Bl d)Ordered By: Marc Rosario on 01-15-2022 Neutrophils/100 WBC (Bld) 66.9 % . [facility] Nitrite Test strip Ql (U)Ord ered By: Marc Rosario on 01-15-2022 Nitrite Ql (U) Negative Negative [facility] No Panel InformationOrdered By: Marc Rosario on 01-15-2022 Estimated GFR () > 60 mL/Min [facility] Comment on above: GFR estimated refere nce range: According to KDOQI guidelines, <60 ml/min/1.73m2 is sufficient to diagnose a patient with chronic kidney disease. Pharmacy Creatinine Clearance (Chem 54.59 [facility] Platelet mean volume Auto (B ld) [Entitic vol]Ordered By: Marc Rosario on 01-15-2022 Platelet mean volume (Bld) [Entitic vol] 8.4 fL 6.6-10.1 [facility] Platelets Auto (Bld) [#/Vol] Ordered By: Marc Rosario on 01-15-2022 Platelets (Bld) [#/Vol] 263 10*3/uL 150-450 [facility] Protein Auto test strip (U) [Mass/Vol]Ordered By: Marc Rosario on 01-15-2022 Protein (U) [Mass/Vol] Negative Negative [facility] Protein [Mass/volume] in Ser um or PlasmaOrdered By: Marc Rosario on 01-15-2022 Protein [Mass/Vol] 6.9 g/dL 6.1-7.9 [facility] RBC Auto (Bld) [#/Vol]Ordere d By: Marc Rosario on 01-15-2022 RBC (Bld) [#/Vol] 4.26 10*6/uL 3.90-5.60 [facility] Serum or plasma alanine bermudez otransferase measurement without P-5'-P (enzymatic activiOrdered By: Marc Rosario on 01-15-2022 ALT No additional P-5'-P [Catalytic activity/Vol] 16 U/L [facility] Serum or plasma albumin/glob ulin mass ratioOrdered By: Marc Rosario on 01-15-2022 Albumin/Globulin [Mass ratio] 1.0 {ratio} [facility] Serum or plasma alkaline koffi sphatase measurement (enzymatic activity/volume)Ordered By: Marc Rosario on 01-15-2022 ALP [Catalytic activity/Vol] 58 U/L 32-92 [facility] Serum or plasma amylase perla urement (enzymatic activity/volume)Ordered By: Marc Rosario on 01-15-2022 Amylase [Catalytic activity/Vol] 123 U/L 28-100 [facility] Serum or plasma anion gap de terminationOrdered By: Marc Rosario on 01-15-2022 Anion gap [Moles/Vol] 15.2 mmol/L 6.0-15.0 [facility] Serum or plasma aspartate am inotransferase measurement (enzymatic activity/volume)Ordered By: Marc Rosario on 01-15-2022 AST [Catalytic activity/Vol] 22 U/L 10-42 [facility] Serum or plasma calcium perla urement (mass/volume)Ordered By: Marc Rosairo on 01-15-2022 Calcium [Mass/Vol] 8.9 mg/dL 8.2-10.2 [facility] Serum or plasma chloride carlie surement (moles/volume)Ordered By: Marc Rosario on 01-15-2022 Chloride [Moles/Vol] 103 mmol/L 95-114 [facility] Serum or plasma glucose perla urement (mass/volume)Ordered By: Marc Rosario on 01-15-2022 Glucose [Mass/Vol] 86 mg/dL 70-100 [facility] Comment on above: ADA recommended refe rence rangeRandom Glucose Reference Range is dependent on time and content of last meal. Glucose of more than 200 mg/dL in a nonstressed, ambulatory subject supports the diagnosis of Diabetes Mellitus. Serum or plasma potassium me asurement (moles/volume)Ordered By: Marc Rosario on 01-15-2022 Potassium [Moles/Vol] 3.6 mmol/L 3.5-5.1 [facility] Serum or plasma sodium measu rement (moles/volume)Ordered By: Marc Rosario on 01-15-2022 Sodium [Moles/Vol] 139 mmol/L 136-146 [facility] Serum or plasma total biliru bin measurement (mass/volume)Ordered By: Marc Rosario on 01-15-2022 Bilirubin [Mass/Vol] 0.9 mg/dL 0.3-1.2 [facility] Serum or plasma total carbon dioxide measurement (moles/volume)Ordered By: Marc Rosario on 01-15-2022 CO2 [Moles/Vol] 24.4 mmol/L 22.0-30.[address] [facility] Serum or plasma urea nitroge n measurement (mass/volume)Ordered By: Marc Rosario on 01-15-2022 Urea nitrogen [Mass/Vol] 11 mg/dL - [facility] Specific gravity Auto test s trip (U) [Rel density]Ordered By: Marc Rosario on 01-15-2022 Specific gravity (U) [Rel density] 1.007 1.001-1.030 [facility] Troponin I High Sensitivityo n 01-15-2022 Troponin I High Sensitivity 10 pg/mL Normal 0-20 [facility] Comment on above: Result Comment: PERF ORMED BY: [facility] [address] [place] [address] PATHOLOGIST GEOLOGICAL TECHNICIAN BAY THRASHER M.D. Performed By: #### L IPASE, CBC, CMP, HS TROP, KILEY #### [facility] [address] Troponin I.cardiac [Mass/vol ume] in Serum or Plasma by High sensitivity methodOrdered By: Marc Rosario on 01-15-2022 Troponin I.cardiac High sensitivity method [Mass/Vol] 10 pg/mL 0-20 [facility] Urinalysison 01-15-2022 Appearance (U) Clear Normal Clear [facility] Comment on above: Order Comment: Name Collection Type:: Clean-Voided Midstream Performed By: #### U A ####[facility] [id number] Bilirubin,Urine Negative Normal Negative [facility] Comment on above: Order Comment: Name Collection Type:: Clean-Voided Midstream Performed By: #### U A ####[address] [address] [facility] Color (U) Yellow Normal Yellow [facility] Comment on above: Order Comment: Name Collection Type:: Clean-Voided Midstream Performed By: #### U A ####[address] [address] [facility] Glucose Ql (U) Normal Normal Normal [facility] Comment on above: Order Comment: Name Collection Type:: Clean-Voided Midstream Performed By: #### U A ####[address] [address] [facility] Ketones Ql (U) Negative Normal Negative [facility] Comment on above: Order Comment: Name Collection Type:: Clean-Voided Midstream Performed By: #### U A ####[address] [address] [facility] Leukocyte esterase Test strip Ql (U) Negative Normal Negative [facility] Comment on above: Order Comment: Name Collection Type:: Clean-Voided Midstream Performed By: #### U A ####[address] [address] [facility] Nitrite,Urine Negative Normal Negative [facility] Comment on above: Order Comment: Name Collection Type:: Clean-Voided Midstream Performed By: #### U A ####[address] [address] [facility] Occult Blood,Urine Negative Normal Negative [facility] Comment on above: Order Comment: Name Collection Type:: Clean-Voided Midstream Result Comment: PERF ORMED BY: [facility] [address] [place] [address] PATHOLOGIST GEOLOGICAL TECHNICIAN BAY THRASHER M.D. Performed By: #### U A ####[address] [address] [facility] pH (U) 7.5 [pH] Normal 5.0-9.0 [facility] Comment on above: Order Comment: Name Collection Type:: Clean-Voided Midstream Performed By: #### U A ####[address] [address] [facility] Protein,Urine Negative Normal Negative [facility] Comment on above: Order Comment: Name Collection Type:: Clean-Voided Midstream Performed By: #### U A ####[facility] [id number] Specificy [place],Urine 1.007 Normal 1.001-1.030 [facility] Comment on above: Order Comment: Name Collection Type:: Clean-Voided Midstream Performed By: #### U A ####[place] [address] Urobilinogen,Urine Normal Normal Normal [facility] Comment on above: Order Comment: Name Collection Type:: Clean-Voided Midstream Performed By: #### U A ####[place] [address] Urine clarity by refractomet ry automatedOrdered By: Marc Rosario on 01-15-2022 Clarity Refractometry automated (U) Clear Clear [facility] Urine glucose measurement by automated test strip (mass/volume)Ordered By: Marc Rosario on 01-15-2022 Glucose Auto test strip (U) [Mass/Vol] Normal mg/dL Normal [facility] Urine hemoglobin detection b y automated test stripOrdered By: Marc Rosario on 01-15-2022 Hemoglobin Auto test strip Ql (U) Negative Negative [facility] Urine leukocyte esterase det ection by automated test stripOrdered By: Marc Rosario on 01-15-2022 Leukocyte esterase Auto test strip Ql (U) Negative Negative [facility] Urobilinogen Auto test strip (U) [Mass/Vol]Ordered By: Marc Rosario on 01-15-2022 Urobilinogen (U) [Mass/Vol] Normal mg/dL Normal [facility] pH Auto test strip (U)Ordere d By: Marc Rosario on 01-15-2022 pH (U) 7.5 [pH] 5.0-9.0 [facility] CBC AUTO DIFFon 01-07-2022 BASO # 0.1 103/ul Normal 0.0-0.1 [facility] Comment on above: Performed By: #### F T4 #### [facility] [address] [place] [address] [address] Apolonia Norwood Basophils/100 WBC (Bld) 0.9 % Normal 0.2-2.0 [facility] Comment on above: Performed By: #### F T4 #### [facility] [address] [place] [address] Dr. Apolonia Norwood EO # 0.3 103/ul Normal 0.0-0.7 [facility] Comment on above: Performed By: #### F T4 #### [facility] [address] [place] [address] Dr. Apolonia Norwood Eosinophils/100 WBC (Bld) 5.1 % Normal 0.9-7.0 [facility] Comment on above: Performed By: #### F T4 #### [facility] [address] [place] [address] Dr. Apolonia Norwood Erythrocyte distribution width (RBC) [Ratio] 13.8 % Normal 11.0-15.0 [facility] Comment on above: Performed By: #### F T4 #### [facility] [address] [place] [address] Dr. Apolonia Norwood Hematocrit (Bld) [Volume fraction] 39.2 % Critically low 42.0-54.0 [facility] Comment on above: Performed By: #### F T4 #### [facility] [address] [place] [address] Dr. Apolonia Norwood Hemoglobin (Bld) [Mass/Vol] 12.8 g/dL Critically low 14.0-18.0 [facility] Comment on above: Performed By: #### F T4 #### [facility] [address] [place] [address] Dr. Apolonia Norwood IG # 0.02 10e3/ul Normal 0.00-0.03 [facility] Comment on above: Performed By: #### F T4 #### [facility] [address] [place] [address] Dr. Apolonia Norwood IG % 0.4 % Normal 0.0-0.5 [facility] Comment on above: Performed By: #### F T4 #### [facility] [address] [place] [address] Dr. Apolonia Norwood LYMPH # 1.3 103/ul Normal 1.2-3.8 [facility] Comment on above: Performed By: #### F T4 #### [facility] [address] [place] [address] Dr. Apolonia Norwood Lymphocytes/100 WBC (Bld) 23.7 % Normal 20.5-60.0 [facility] Comment on above: Performed By: #### F T4 #### [facility] [address] [place] [address] Dr. Apolonia Norwood MANUAL DIFF REQ NO Normal [facility] Comment on above: Performed By: #### F T4 #### [facility] [address] [place] [address] Dr. Apolonia Norwood MCH (RBC) [Entitic mass] 33.2 pg Normal 25.9-34.0 [facility] Comment on above: Performed By: #### F T4 #### [facility] [address] [place] [address] Dr. Apolonia Norwood MCHC (RBC) [Mass/Vol] 32.7 g/dL Normal 29.9-35.2 [facility] Comment on above: Performed By: #### F T4 #### [facility] [address] [place] [address] Dr. Apolonia Norwood MCV (RBC) [Entitic vol] 101.8 fL Critically high 80.0-94.0 [facility] Comment on above: Performed By: #### F T4 #### [facility] [address] [place] [address] Dr. Apolonia Norwood MONO # 0.4 103/ul Normal 0.3-0.8 [facility] Comment on above: Performed By: #### F T4 #### [facility] [address] [place] [address] Dr. Apolonia Norwood Monocytes/100 WBC (Bld) 7.8 % Normal 1.7-12.0 [facility] Comment on above: Performed By: #### F T4 #### [facility] [address] [place] [address] Dr. Apolonia Norwood NEUT # 3.3 103/ul Normal 1.4-6.5 [facility] Comment on above: Performed By: #### F T4 #### [facility] [address] [place] [address] Dr. Apolonia Norwood Neutrophils/100 WBC (Bld) 62.1 % Normal 43.0-75.0 [facility] Comment on above: Performed By: #### F T4 #### [facility] [address] [place] [address] Dr. Apolonia Norwood Platelet mean volume (Bld) [Entitic vol] 9.5 fL Normal 9.5-13.5 [facility] Comment on above: Performed By: #### F T4 #### [facility] [address] [place] [address] Dr. Apolonia Norwood PLT 181 103/ul Normal 150-450 [facility] Comment on above: Performed By: #### F T4 #### [facility] [address] [place] [address] Dr. Apolonia Norwood RBC 3.85 106/ul Critically low 4.70-6.10 [facility] Comment on above: Performed By: #### F T4 #### [facility] [address] [place] [address] Dr. Apolonia Norwood WBC 5.3 103/ul Normal 4.0-11.0 [facility] Comment on above: Performed By: #### F T4 #### [facility] [address] [place] [address] Dr. Apolonia Norwood PROF 14(COMP METB)on 022 Albumin [Mass/Vol] 2.9 g/dL Critically low 3.4-5.0 [facility] Comment on above: Performed By: #### F T4 #### [facility] [address] [place] [address] Dr. Apolonia Norwood Albumin/Globulin [Mass ratio] 0.9 {ratio} Normal [facility] Comment on above: Performed By: #### F T4 #### [facility] [address] [place] [address] Dr. Apolonia Norwood ALP [Catalytic activity/Vol] 55 U/L Normal 46-116 [facility] Comment on above: Performed By: #### F T4 #### [facility] [address] [place] [address] Dr. Apolonia Norwood ALT [Catalytic activity/Vol] 11 U/L Critically low 16-63 [facility] Comment on above: Performed By: #### F T4 #### [facility] [address] [place] [address] Dr. Apolonia Norwood Anion gap [Moles/Vol] 12.8 mmol/L Normal Th [facility] Comment on above: Performed By: #### F T4 #### [facility] [address] [place] [address] Dr. Apolonia Norwood AST [Catalytic activity/Vol] 19 U/L Normal 15-37 [facility] Comment on above: Performed By: #### F T4 #### [facility] [address] [place] [address] Dr. Apolonia Norwood Bilirubin [Mass/Vol] 1.3 mg/dL Critically high 0.2-1.0 [facility] Comment on above: Performed By: #### F T4 #### [facility] [address] [place] [address] Dr. Apolonia Norwood Calcium [Mass/Vol] 8.2 mg/dL Critically low 8.5-10.1 [facility] Comment on above: Performed By: #### F T4 #### [facility] [address] [place] [address] Dr. Apolonia Norwood Chloride [Moles/Vol] 106 mmol/L Normal 98-107 [facility] Comment on above: Performed By: #### F T4 #### [facility] [address] [place] [address] Dr. Apolonia Norwood CO2 [Moles/Vol] 24.9 mmol/L Normal 21.0-32.0 [facility] Comment on above: Performed By: #### F T4 #### [facility] [address] [place] [address] Dr. Apolonia Norwood Creatinine [Mass/Vol] 1.10 mg/dL Normal 0.70-1.30 [facility] Comment on above: Performed By: #### F T4 #### [facility] [address] [place] [address] [address] Apolonia Norwood EGFR-AF TRINIDADIAN >60 Normal >=60 [facility] Comment on above: Performed By: #### F T4 #### [facility] [address] [place] [address] Dr. Apolonia Norwood EGFR-NON AF TRINIDADIAN >60 Normal >=60 [facility] Comment on above: Performed By: #### F T4 #### [facility] [address] [place] [address] [address] Apolonia Norwood Globulin (S) [Mass/Vol] 3.1 g/dL Normal [facility] Comment on above: Performed By: #### F T4 #### [facility] [address] [place] [address] Dr. Apolonia Norwood Glucose [Mass/Vol] 76 mg/dL Normal 74-106 [facility] Comment on above: Performed By: #### F T4 #### [facility] [address] [place] [address] Dr. Apolonia Norwood Potassium [Moles/Vol] 3.7 mmol/L Normal 3.5-5.1 [facility] Comment on above: Performed By: #### F T4 #### [facility] [address] [place] [address] Dr. Apolonia Norwood Protein [Mass/Vol] 6.0 g/dL Critically low 6.4-8.2 [facility] Comment on above: Performed By: #### F T4 #### [facility] [address] [place] [address] Dr. Apolonia Norwood Sodium [Moles/Vol] 140 mmol/L Normal 136-145 [facility] Comment on above: Performed By: #### F T4 #### [facility] [address] [place] [address] Dr. Apolonia Norwood Urea nitrogen [Mass/Vol] 15.0 mg/dL Normal 7.0-18.0 [facility] Comment on above: Performed By: #### F T4 #### [facility] [address] [place] [address] [address] Apolonia Norwood Urea nitrogen/Creatinine [Mass ratio] 13.6 mg/mg Normal [facility] Comment on above: Performed By: #### F T4 #### [facility] [address] [place] [address] Dr. Apolonia Norwood XR ABD FLAT_UPon 01-07-2022 XR ABD FLAT_UP EXAMINATION: XR ABD FLAT_UP HISTORY: GENERALIZED ABDOMINAL PAIN ; no bowel movement for 3 days COMPARISON: No relevant comparison available. FINDINGS: BOWEL GAS PATTERN: Air and stool filled colon, with air-filled sigmoid colon distended up to 5.8 cm. Numerous fluid levels scattered throughout the small bowel without abnormal dilation. FREE AIR: None. CALCIFICATIONS: None significant. BONES: No fracture or visible bone lesion. OTHER: Negative. IMPRESSION: 1. Sigmoid colon is mildly distended and air-filled, but no convincing sigmoid volvulus. No convincing bowel obstruction. Clinical follow-up is recommended. 2. Moderate stool burden. Electronically authenticated by: YAJAIRA MISHRA Date: 2022-01-07 12:00 Normal [facility] AMYLASEon 01-06-2022 Amylase [Catalytic activity/Vol] 91 U/L Normal 25-115 [facility] Comment on above: Performed By: #### A MY, LIPA, CMP #### [facility] [address] [place] [address] Dr. Apolonia Norwood BILIRUBIN CONJUGATED (DIRECT )on 01-06-2022 BILI, CONJUGATED 0.3 mg/dL Critically high 0.0-0.2 [facility] Comment on above: Performed By: #### D KHALIF #### [facility] [address] [place] [address] Dr. Apolonia Norwood CBC AUTO DIFFon 01-06-2022 BASO # 0.1 103/ul Normal 0.0-0.1 [facility] Comment on above: Performed By: #### F T4 #### [facility] [address] [place] [address] Dr. Apolonia Norwood Basophils/100 WBC (Bld) 0.9 % Normal 0.2-2.0 [facility] Comment on above: Performed By: #### F T4 #### [facility] [address] [place] [address] Dr. Apolonia Norwood EO # 0.2 103/ul Normal 0.0-0.7 [facility] Comment on above: Performed By: #### F T4 #### [facility] [address] [place] [address] Dr. Apolonia Norwood Eosinophils/100 WBC (Bld) 2.2 % Normal 0.9-7.0 [facility] Comment on above: Performed By: #### F T4 #### [facility] [address] [place] [address] Dr. Apolonia Norwood Erythrocyte distribution width (RBC) [Ratio] 13.9 % Normal 11.0-15.0 [facility] Comment on above: Performed By: #### F T4 #### [facility] [address] [place] [address] Dr. Apolonia Norwood Hematocrit (Bld) [Volume fraction] 44.4 % Normal 42.0-54.0 [facility] Comment on above: Performed By: #### F T4 #### [facility] [address] [place] [address] Dr. Aoplonia Norwood Hemoglobin (Bld) [Mass/Vol] 14.6 g/dL Normal 14.0-18.0 [facility] Comment on above: Performed By: #### F T4 #### [facility] [address] [place] [address] Dr. Apolonia Norwood IG # 0.03 10e3/ul Normal 0.00-0.03 [facility] Comment on above: Performed By: #### F T4 #### [facility] [address] [place] [address] Dr. Apolonia Norwood IG % 0.4 % Normal 0.0-0.5 [facility] Comment on above: Performed By: #### F T4 #### [facility] [address] [place] [address] Dr. Apolonia Norwood LYMPH # 1.4 103/ul Normal 1.2-3.8 [facility] Comment on above: Performed By: #### F T4 #### [facility] [address] [place] [address] Dr. Apolonia Norwood Lymphocytes/100 WBC (Bld) 17.4 % Critically low 20.5-60.0 [facility] Comment on above: Performed By: #### F T4 #### [facility] [address] [place] [address] Dr. Apolonia Norwood MANUAL DIFF REQ NO Normal [facility] Comment on above: Performed By: #### F T4 #### [facility] [address] [place] [address] Dr. Apolonia Norwood MCH (RBC) [Entitic mass] 33.0 pg Normal 25.9-34.0 [facility] Comment on above: Performed By: #### F T4 #### [facility] [address] [place] [address] Dr. Apolonia Norwood MCHC (RBC) [Mass/Vol] 32.9 g/dL Normal 29.9-35.2 [facility] Comment on above: Performed By: #### F T4 #### [facility] [address] [place] [address] Dr. Apolonia Norwood MCV (RBC) [Entitic vol] 100.2 fL Critically high 80.0-94.0 [facility] Comment on above: Performed By: #### F T4 #### [facility] [address] [place] [address] Dr. Apolonia Norwood MONO # 0.5 103/ul Normal 0.3-0.8 [facility] Comment on above: Performed By: #### F T4 #### [facility] [address] [place] [address] Dr. Apolonia Norwood Monocytes/100 WBC (Bld) 6.1 % Normal 1.7-12.0 [facility] Comment on above: Performed By: #### F T4 #### [facility] [address] [place] [address] Dr. Apolonia Norwood NEUT # 5.7 103/ul Normal 1.4-6.5 [facility] Comment on above: Performed By: #### F T4 #### [facility] [address] [place] [address] Dr. Apolonia Norwood Neutrophils/100 WBC (Bld) 73.0 % Normal 43.0-75.0 [facility] Comment on above: Performed By: #### F T4 #### [facility] [address] [place] [address] Dr. Apolonia Norwood Platelet mean volume (Bld) [Entitic vol] 9.6 fL Normal 9.5-13.5 [facility] Comment on above: Performed By: #### F T4 #### [facility] [address] [place] [address] Dr. Apolonia Norwood PLT 215 103/ul Normal 150-450 [facility] Comment on above: Performed By: #### F T4 #### [facility] [address] [place] [address] Dr. Apolonia Norwood RBC 4.43 106/ul Critically low 4.70-6.10 [facility] Comment on above: Performed By: #### F T4 #### [facility] [address] [place] [address] Dr. Apolonia Norwood WBC 7.8 103/ul Normal 4.0-11.0 [facility] Comment on above: Performed By: #### F T4 #### [facility] [address] [place] [address] ABD/PELV W CONon 01-07-20 CT ABD/PELV W CON EXAMINATION: CT ABD/ PELV W CON HISTORY: ABDOMINAL DISTENSION (GASEOUS) COMPARISON: None. TECHNIQUE: Axial CT of the abd/pelvis with IV contrast. Dose reduction techniques were achieved by using automated exposure control and/or adjustment of mA and/or kV according to patient size and/or use of iterative reconstruction technique. FINDINGS: Director Clinical Operations: No pertinent findings, which are not already discussed below. Tubes/lines/drains: Partially visualized cardiac leads. CHEST: Lungs: Clear. Cardiac and vascular: No cardiomegaly or significant pericardial effusion. Small hiatal hernia. ABDOMEN: Liver: Multiple scattered hepatic cysts. Diffuse hypoattenuation, compatible with hepatic steatosis. Please note liver is not completely imaged (dome is missing). Gallbladder and Biliary Tree: Cholecystectomy. No disproportionate ductal dilation. Spleen: Unremarkable. Pancreas: Unremarkable. Adrenal Glands: Unremarkable. Kidneys, Ureters, Bladder: No concerning renal lesions or masses. Multiple bilateral renal cysts. Right upper pole 2 mm nephrolith. No urolithiasis. No hydronephrosis or hydroureterosis. Unremarkable bladder. Gastrointestinal: Left colonic diverticulosis. No mural thickening or inflammatory changes. No dilated loops of small or large bowel. Reproductive organ(s): Unremarkable. Lymphatic: No concerning retroperitoneal, mesenteric, or inguinal adenopathy. Vessels: Advanced atherosclerotic calcifications without aneurysmal dilatation. BONES AND SOFT TISSUE: Bones: No acute fracture. No concerning osseous lesions. L5-S1 disc degeneration. Soft Tissue: Ill-defined soft tissue density along the proximal aspect of the bilateral inguinal canals (axial images 110 and 116). Small fat-containing buckle hernia. IMPRESSION: 1. No acute intra-abdominal/pelvic findings. 2. Colonic diverticulosis without evidence for diverticulitis. 3. Right nephrolithiasis, nonobstructive. 4. Ill-defined soft tissue density within the bilateral proximal inguinal canals, which could represent postsurgical change from inguinal hernia repair. Please correlate with history and consideration for ultrasound if clinically indicated. Electronically authenticated by: YE VALENTINE Date: 2022-01-06 17:17 Normal [facility] Covid-19 PCR ([facility])on SARS-CoV-2 (COVID-19) RNA LACY+probe Ql (Unsp spec) Not detected Normal NOT DETECTED [facility] Comment on above: Result Comment: When diagnostic testing is negative, the possibility of a false negative should be considered in the context of a patient's recent exposures and the presence of clinical signs and symptoms consistent with SARS-CoV-2. This test is not yet approved or cleared by the [place] FDA. When there are no FDA-approved or cleared tests available, and other criteria are met, FDA can make tests available under an emergency access mechanism called an Emergency Use Authorization (EUA). The EUA for this test is supported by the [place] of Health and Human Service's declaration that circumstances exist to justify the emergency use of in vitro diagnostics for the detection and/or diagnosis of the virus that causes COVID-19. This EUA will remain in effect for the duration of the COVID-19 declaration justifying emergency of IVDs, unless it is terminated or revoked by the FDA (after which the test may no longer be used). Performed By: #### F T4 #### [facility] [address] [place] [address] Dr. Apolonia Norwood ER URINE PROFILEon 2 Bilirubin Ql (U) Negative Normal NEGATIVE [facility] Comment on above: Performed By: #### F T4 #### [facility] [address] [place] [address] Dr. Apolonia Norwood Clarity (U) CLEAR Normal CLEAR [facility] Comment on above: Performed By: #### F T4 #### [facility] [address] [place] [address] Dr. Apolonia Norwood Color (U) LT. YELLOW Normal YELLOW [facility] Comment on above: Performed By: #### F T4 #### [facility] [address] [place] [address] Dr. Apolonia Norwood ERUAHD A micrscopic examina tion will be performed if indicated. Normal [facility] Comment on above: Performed By: #### F T4 #### [facility] [address] [place] [address] Dr. Apolonia Norwood Glucose Ql (U) Negative Normal NEGATIVE [facility] Comment on above: Performed By: #### F T4 #### [facility] [address] [place] [address] Dr. Apolonia Norwood Hemoglobin Ql (U) Negative Normal NEGATIVE [facility] Comment on above: Performed By: #### F T4 #### [facility] [address] [place] [address] Dr. Apolonia Norwood Ketones Ql (U) TRACE Abnormal NEGATIVE [facility] Comment on above: Performed By: #### F T4 #### [facility] [address] [place] [address] Dr. Apolonia Norwood LEUKOCYTES Negative Normal NEGATIVE [facility] Comment on above: Performed By: #### F T4 #### [facility] [address] [place] [address] Dr. Apolonia Norwood Nitrite Ql (U) Negative Normal NEGATIVE [facility] Comment on above: Performed By: #### F T4 #### [facility] [address] [place] [address] Dr. Apolonia Norwood pH (U) 7.0 [pH] Normal 5-9 [facility] Comment on above: Performed By: #### F T4 #### [facility] [address] [place] [address] Dr. Apolonia Norwood SPEC GRAVITY 1.010 Normal 1.005-<=1.0 25 [facility] Comment on above: Performed By: #### F T4 #### [facility] [address] [place] [address] Dr. Apolonia Norwood UA PROTEIN Negative Normal NEGATIVE/ TRACE [facility] Comment on above: Performed By: #### F T4 #### [facility] [address] [place] [address] Dr. Apolonia Norwood UR MICRO IND NOT INDICATED Normal [facility] Comment on above: Performed By: #### F T4 #### [facility] [address] [place] [address] Dr. Apolonia Norwood Urobilinogen Qn (U) 2.0 {John'U}/dL Abnormal 0.2 - 1. 0 [facility] Comment on above: Performed By: #### F T4 #### [facility] [address] [place] [address] Dr. Apolonia Norwood LIPASEon 01-06-2022 Lipase [Catalytic activity/Vol] 92.0 U/L Normal 73.0-393.0 [facility] Comment on above: Performed By: #### A WOODY GARCIA, CMP #### [facility] [address] [place] [address] Dr. Apolonia Norwood PROF 14(COMP METB)on 022 Albumin [Mass/Vol] 3.6 g/dL Normal 3.4-5.0 [facility] Comment on above: Performed By: #### A WOODY GARCIA, CMP #### [facility] [address] [place] [address] Dr. Apolonia Norwood Albumin/Globulin [Mass ratio] 0.9 {ratio} Normal [facility] Comment on above: Performed By: #### A MY, LIPA, CMP #### [facility] [address] [address] [address] Apolonia Norwood ALP [Catalytic activity/Vol] 70 U/L Normal 46-116 [facility] Comment on above: Performed By: #### A MY, LIPA, CMP #### [facility] [address] [address] [address] Apolonia Norwood ALT [Catalytic activity/Vol] 15 U/L Critically low 16-63 [facility] Comment on above: Performed By: #### A MY, LIPA, CMP #### [facility] [address] [address] [address] Apolonia Norwood Anion gap [Moles/Vol] 13.1 mmol/L Normal [facility] Comment on above: Performed By: #### A MY, LIPA, CMP #### [facility] [address] [place] [address] Dr. Apolonia Norwood AST [Catalytic activity/Vol] 21 U/L Normal 15-37 [facility] Comment on above: Performed By: #### A MY, LIPA, CMP #### [facility] [address] [address] [address] Apolonia Norwood Bilirubin [Mass/Vol] 1.1 mg/dL Critically high 0.2-1.0 [facility] Comment on above: Performed By: #### A MY, LIPA, CMP #### [facility] [address] [address] [address] Apolonia Norwood Calcium [Mass/Vol] 8.9 mg/dL Normal 8.5-10.1 [facility] Comment on above: Performed By: #### A MY, LIPA, CMP #### [facility] [address] [address] [address] Apolonia Norwood Chloride [Moles/Vol] 107 mmol/L Normal 98-107 [facility] Comment on above: Performed By: #### A MY, LIPA, CMP #### [facility] [address] [address] [address] Apolonia Norwood CO2 [Moles/Vol] 24.6 mmol/L Normal 21.0-32.0 [facility] Comment on above: Performed By: #### A MY, LIPA, CMP #### [facility] [address] [address] [address] Apolonia Norwood Creatinine [Mass/Vol] 1.10 mg/dL Normal 0.70-1.30 [facility] Comment on above: Performed By: #### A MY, LIPA, CMP #### [facility] [address] [address] [address] Apolonia Norwood EGFR-AF TRINIDADIAN >60 Normal >=60 [facility] Comment on above: Performed By: #### A MY, LIPA, CMP #### [facility] [address] [place] [address] Dr. Apolonia Norwood EGFR-NON AF TRINIDADIAN >60 Normal >=60 [facility] Comment on above: Performed By: #### A MY, LIPA, CMP #### [facility] [address] [place] [address] Dr. Apolonia Norwood Globulin (S) [Mass/Vol] 3.9 g/dL Normal [facility] Comment on above: Performed By: #### A MY, LIPA, CMP #### [facility] [address] [place] [address] Dr. Apolonia Norwood Glucose [Mass/Vol] 85 mg/dL Normal 74-106 [facility] Comment on above: Performed By: #### A MY, LIPA, CMP #### [facility] [address] [address] [address] Apolonia Norwood Potassium [Moles/Vol] 3.7 mmol/L Normal 3.5-5.1 [facility] Comment on above: Performed By: #### A MY, LIPA, CMP #### [facility] [address] [place] [address] Dr. Apolonia Norwood Protein [Mass/Vol] 7.5 g/dL Normal 6.4-8.2 [facility] Comment on above: Performed By: #### A MY, LIPA, CMP #### [facility] [address] [place] [address] Dr. Apolonia Norwood Sodium [Moles/Vol] 141 mmol/L Normal 136-145 [facility] Comment on above: Performed By: #### A WOODY GARCIA, CMP #### [facility] [address] [address] [address] Apolonia Norwood Urea nitrogen [Mass/Vol] 13.0 mg/dL Normal 7.0-18.0 [facility] Comment on above: Performed By: #### A WOODY GARCIA, CMP #### [facility] [address] [address] [address] Apolonia Norwood Urea nitrogen/Creatinine [Mass ratio] 11.8 mg/mg Normal [facility] Comment on above: Performed By: #### A WOODY GARCIA, CMP #### [facility] [address] [address] [address] Apolonia Norwood CBCon 11-15-[address] [facility] Comment on above: Order Comment: TEST CBC WAS CANCELLED, 11/15/2021 04:14 Performed By: #### C BC #### [facility] [address] [place] [address] [facility] Comment on above: Order Comment: TEST CBC WAS CANCELLED, 11/15/2021 04:14 Performed By: #### C BC #### [facility] [address] [place] [address] [facility] Comment on above: Order Comment: TEST CBC WAS CANCELLED, 11/15/2021 04:14 Performed By: #### C BC #### [facility] [address] [place] [address] [facility] Comment on above: Order Comment: TEST CBC WAS CANCELLED, 11/15/2021 04:14 Performed By: #### C BC #### [facility] [address] [place] [address] NUCLEATED RBC Canceled Normal [facility] Comment on above: Order Comment: TEST CBC WAS CANCELLED, 11/15/2021 04:14 Performed By: #### C BC #### [facility] [address] [place] [address] [facility] Comment on above: Order Comment: TEST CBC WAS CANCELLED, 11/15/2021 04:14 Performed By: #### C BC #### [facility] [address] [place] [address] [facility] Comment on above: Order Comment: TEST CBC WAS CANCELLED, 11/15/2021 04:14 Performed By: #### C BC #### [facility] [address] [place] [address] RDW-CV Canceled Normal [facility] Comment on above: Order Comment: TEST CBC WAS CANCELLED, 11/15/2021 04:14 Performed By: #### C BC #### [facility] [address] [place] [address] [facility] Comment on above: Order Comment: TEST CBC WAS CANCELLED, 11/15/2021 04:14 Performed By: #### C BC #### [place] [address] [place] [address] COAGULATION SCREENon [address] [facility] Comment on above: Order Comment: TEST COAGULATION SCREEN WAS CANCELLED, 11/15/2021 04:14 Result Comment: THE APTT IS NO LONGER USED FOR MONITORING UNFRACTIONATED HEPARIN THERAPY. FOR MONITORING HEPARIN THERAPY, USE THE HEPARIN ASSAY. Performed By: #### C OAGS #### [facility] [address] [place] [address] PROTHROMBIN TIME Canceled Normal [facility] Comment on above: Order Comment: TEST COAGULATION SCREEN WAS CANCELLED, 11/15/2021 04:14 Performed By: #### C OAGS #### [facility] [address] [place] [address] PT, INR Canceled Normal [facility] Comment on above: Order Comment: TEST COAGULATION SCREEN WAS CANCELLED, 11/15/2021 04:14 Performed By: #### C OAGS #### [facility] [address] [place] [address] MAGNESIUMon 11-15-[address] [facility] Comment on above: Order Comment: TEST MAGNESIUM WAS CANCELLED, 11/15/2021 04:14 Performed By: #### M G #### [facility] [address] [place] [address] RENAL FUNCTION PANELon 11-[address] [facility] Comment on above: Order Comment: TEST RENAL FUNCTION PANEL WAS CANCELLED, 11/15/2021 04:14 Performed By: #### R ENAL #### [facility] [address] [place] [address] ANION GAP Canceled Normal [facility] Comment on above: Order Comment: TEST RENAL FUNCTION PANEL WAS CANCELLED, 11/15/2021 04:14 Performed By: #### R ENAL #### [facility] [address] [place] [address] [address] C[address] Normal [facility] Comment on above: Order Comment: TEST RENAL FUNCTION PANEL WAS CANCELLED, 11/15/2021 04:14 Performed By: #### R ENAL #### [facility] [address] [place] [address] [facility] Comment on above: Order Comment: TEST RENAL FUNCTION PANEL WAS CANCELLED, 11/15/2021 04:14 Performed By: #### R ENAL #### [facility] [address] [place] [address] [facility] Comment on above: Order Comment: TEST RENAL FUNCTION PANEL WAS CANCELLED, 11/15/2021 04:14 Performed By: #### R ENAL #### [facility] [address] [place] [address] [facility] Comment on above: Order Comment: TEST RENAL FUNCTION PANEL WAS CANCELLED, 11/15/2021 04:14 Performed By: #### R ENAL #### [facility] [address] [place] [address] eGFR FEMALE Canceled Normal [facility] Comment on above: Order Comment: TEST RENAL FUNCTION PANEL WAS CANCELLED, 11/15/2021 04:14 Result Comment: CALC ULATIONS OF ESTIMATED GFR ARE PERFORMED USING THE 2020 CKD-EPI STUDY REFIT EQUATION WITHOUT THE RACE VARIABLE FOR THE IDMS-TRACEABLE CREATININE METHODS. https://jasn.asnjournals.org/content/early/ASN.69844 79857 Performed By: #### R ENAL #### [facility] [address] [place] [address] eGFR MALE Canceled Normal [facility] Comment on above: Order Comment: TEST RENAL FUNCTION PANEL WAS CANCELLED, 11/15/2021 04:14 Result Comment: CALC ULATIONS OF ESTIMATED GFR ARE PERFORMED USING THE 2020 CKD-EPI STUDY REFIT EQUATION WITHOUT THE RACE VARIABLE FOR THE IDMS-TRACEABLE CREATININE METHODS. https://jasn.asnjournals.org/content/earlyASN.34515 37565 Performed By: #### R ENAL #### [facility] [address] [place] [address] [facility] Comment on above: Order Comment: TEST RENAL FUNCTION PANEL WAS CANCELLED, 11/15/2021 04:14 Performed By: #### R ENAL #### [facility] [address] [place] [address] [address] [facility] Comment on above: Order Comment: TEST RENAL FUNCTION PANEL WAS CANCELLED, 11/15/2021 04:14 Result Comment: The performance characteristics of phosphorus testing in heparinized plasma have been validated by the individual laboratory site where testing is performed. Testing on heparinized plasma is not approved by the FDA; however, such approval is not necessary. Performed By: #### R ENAL #### [facility] [address] [place] [address] [address] [facility] Comment on above: Order Comment: TEST RENAL FUNCTION PANEL WAS CANCELLED, 11/15/2021 04:14 Performed By: #### R ENAL #### [facility] [address] [place] [address] [facility] Comment on above: Order Comment: TEST RENAL FUNCTION PANEL WAS CANCELLED, 11/15/2021 04:14 Performed By: #### R ENAL #### [facility] [address] [place] [address] UREA NITROGEN Canceled Normal [facility] Comment on above: Order Comment: TEST RENAL FUNCTION PANEL WAS CANCELLED, 11/15/2021 04:14 Performed By: #### R ENAL #### [facility] [address] [place] [address] Clinical Event Noteon 2021 Clinical Event Note Clinical Event: Clinical Event Note: Details ANESTHESIA CLINICAL EVENT NOTE Discussed DNR-CC with patient and patient's sister, who accompanied him today. DNR was confirmed with patient. We discussed with the patient, in the presence of his sister, suspending the DNR-CC order for the intraoperative portion of his mitraclip procedure, as well as the immediate postoperative period. After explanation, the patient agreed to suspend his DNR order as specified above. Benoit Arroyo MD pager [phone] Plan of Care Reviewed Withfamily Electronic Signatures: Benoit Arroyo) (Signed 14-Nov-2021 14:53) Authored: Clinical Event Note Last Updated: 14-Nov-2021 14:53 by Benoit Arroyo) Normal [facility] Electrocardiogram 12 Leadon 11-14-2021 Electrocardiogram 12 Lead Ventricular Rate 66 Atrial Rate 66 P-R Interval 136 QRS Duration 154 Q-T Interval 476 QTC Calculation(Bazett) 499 R [place] 86 T [place] -67 QRS Count 11 Q Onset 195 P Onset 127 P Offset 183 T Offset 433 QTC Fredericia 491 Diagnosis Class Abnormal Diagnosis Atrial-sensed ventricular-paced rhythm Abnormal ECG When compared with ECG of 09-SEP-2021 11:46, Vent. rate has decreased BY 8 BPM Confirmed by Quintin Calderon ([id number]) on 01/03/2022 8:15:[address] [facility] Intraoperative Transesophage al Echoon 11-14-2021 Intraoperative Transesophageal Echo [facility], [address] [place] [address] and TRANSTHORACIC ECHOCARDIOGRAM REPORT Patient Name: CORKY DUENAS Reading Physician: [id number] Laurent Gamez MD Study Date: 11/14/2021 Referring JANET SPEARS Physician: MRN/PID: [id number] PCP: Accession/Order#: [id number] [facility] Cath Location: Lab Date of : 1950 Fellow: [id number] Alex Marie MD Gender: M Nurse: Admit Date: 11/14/2021 [employer]: Nasim Bowens [facility] Admission Status: Inpatient - Additional Staff: Routine Height: 167.64 cm CC Report to: Weight: 58.00 kg Study Type: Intraoperative Transesophageal Echo BSA: 1.65 m2 Blood Pressure: 132 /68 mmHg Diagnosis/ICD: I34.0-Nonrheumatic mitral (valve) insufficiency Indication: Mitraclip Procedure Procedure/CPT: Echocardiography, Transesophageal (LUCAS) for Guidance of a Transcatheter Intracardiac or Great Vessel(s) Structural Intervention(s)-64281 Patient History: Pertinent History: 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 Study Detail: The following Echo studies were performed: 2D, M-Mode, color flow and Doppler. Image quality for this study is adequate. Technically challenging study due to body habitus and patient lying in supine position. PHYSICIAN INTERPRETATION: LUCAS Details: The LUCAS probe used was X8. Technically adequate omniplane transesophageal echocardiogram performed. Color flow Doppler echo was performed to assess for the presence of a patent foramen ovale. LUCAS Medication: The patient was sedated by Anesthesia; please refer to anesthesia flow sheet for medications used. LUCAS Procedure: The probe was passed without difficulty. The patient tolerated the procedure well without any apparent complications. Left Ventricle: The left ventricular systolic function is severely decreased, with an estimated ejection fraction of 20-25%. The left ventricular cavity size is not assessed. Left ventricular diastolic filling was not assessed. Left Atrium: The left atrium is moderately dilated. There is no evidence of a patent foramen ovale. The left atrial appendage Doppler velocities are normal and there is no thrombus visualized in the left atrial appendage. Right Ventricle: The right ventricle is normal in size. There is normal right ventricular global systolic function. A device is visualized in the right ventricle. Right Atrium: The right atrium is mildly dilated. There is a device visualized in the right atrium. Aortic Valve: The aortic valve is trileaflet. There is minimal aortic valve cusp calcification. There is no evidence of aortic valve stenosis. There is no evidence of aortic valve regurgitation. Mitral Valve: The mitral valve is mildly thickened. There is mild mitral valve regurgitation. All 4 pulmonary veins with co-dominante pattern. No change in MR severity after increasing SBP to 150s range. Tricuspid Valve: The tricuspid valve is structurally normal. There is mild tricuspid regurgitation. The right ventricular systolic pressure is unable to be estimated. Pulmonic Valve: The pulmonic valve is not well visualized. The pulmonic valve regurgitation was not well visualized. Pericardium: There is no pericardial effusion noted. Aorta: The aortic root is normal. There is plaque visualized in the descending aorta which is classified as a Grade 2 [mild (focal or diffuse) intimal thickening of 2-3 mm] atherosclerosis. Pulmonary Veins: The pulmonary veins appear normal and return normally to the left atrium. In comparison to the previous echocardiogram(s): Compared with study from 08/21/2021,. Significant improvement of MR and TR. CONCLUSIONS: 1. The left ventricular systolic function is severely decreased with a 20-25% estimated ejection fraction. 2. The left atrium is moderately dilated. 3. There is mild tricuspid regurgitation. Significant improvement of TR from severe on prior LUCAS to mild (confirmed by LUCAS and TTE images). 4. There is mild mitral regurgitation. All 4 pulmonary veins with co-dominante pattern. No change in MR severity after increasing SBP to 150s range. Significant improvement of funtional MR from severe on prior LUCAS to mild (confirmed by LUCAS and TTE images). As such the joint decision was to cancel the MitraClip procedure. 5. There is plaque visualized in the descending aorta. QUANTITATIVE DATA SUMMARY: [id number] Laurent Gamez MD Electronically signed on 11/15/2021 at 8:20:[address] [facility] No Panel Informationon 11-14 [facility] [address] [place] Work Phone: Please click on the link to view the study images Normal [facility] [address] [place] Work Phone: Order Reconciliationon 08-11 -2022 Order Reconciliation Page 1 Discharge Reconciliation Document Reconciliation Type: Discharge requested on behalf of Alex Cheng (Fellow) done by Alex Cheng ( (Fellow)) Discharge - Reconciliation: 14-Nov-2021 17:16 by: Alex Cheng ( (Fellow)) Home Medications EnteredHOME MEDICATIONS AT DISCHARGE DateReconciliation Comment/ Additional Information carvedilol 12.5 mg oral tablet 1.5 tab(s) orally 2 times a day 31-Oct-2021 13:39 carvedilol 12.5 mg oral tablet 1.5 tab(s) orally 2 times a day 31-Oct-2021 13:39 carvedilol 12.5 mg oral tablet is continued as carvedilol 12.5 mg oral tablet cholecalciferol 50 mcg (2000 intl units) oral tablet 1 tab(s) orally once a day 14-Nov-2021 10:44 cholecalciferol 50 mcg (2000 intl units) oral tablet 1 tab(s) orally once a day 14-Nov-2021 10:44 cholecalciferol 50 mcg (2000 intl units) oral tablet is continued as cholecalciferol 50 mcg (2000 intl units) oral tablet digoxin 125 mcg (0.125 mg) oral tablet 1 tab(s) orally once a day 12-Jun-2020 00:00 digoxin 125 mcg (0.125 mg) oral tablet 1 tab(s) orally once a day 12-Jun-2020 00:00 digoxin 125 mcg (0.125 mg) oral tablet is continued as digoxin 125 mcg (0.125 mg) oral tablet furosemide 40 mg oral tablet 1 tab(s) orally once a day 31-Oct-2021 13:35 furosemide 40 mg oral tablet 1 tab(s) orally once a day 31-Oct-2021 13:35 furosemide 40 mg oral tablet is continued as furosemide 40 mg oral tablet levothyroxine 200 mcg (0.2 mg) oral tablet 1 tab(s) orally once a day 08-Oct-2020 08:45 Discontinued; Discontinue from ORM levothyroxine 200 mcg (0.2 mg) oral tablet is not required levothyroxine 300 mcg (0.3 mg) oral tablet 1 tab(s) orally once a day 08-Oct-2020 00:00 levothyroxine 300 mcg (0.3 mg) oral tablet 1 tab(s) orally once a day 08-Oct-2020 00:00 levothyroxine 300 mcg (0.3 mg) oral tablet is continued as levothyroxine 300 mcg (0.3 mg) oral tablet magnesium oxide 400 mg oral tablet 1 tab(s) orally once a day 14-Nov-2021 10:47 magnesium oxide 400 mg oral tablet 1 tab(s) orally once a day 14-Nov-2021 10:47 magnesium oxide 400 mg oral tablet is continued as magnesium oxide 400 mg oral tablet Multiple Vitamins with Iron oral tablet 1 tab(s) orally once a day 14-Nov-2021 10:49 Multiple Vitamins with Iron oral tablet 1 tab(s) orally once a day 14-Nov-2021 10:49 Multiple Vitamins with Iron oral tablet is continued as Multiple Vitamins with Iron oral tablet sacubitril-valsartan 97 mg-103 mg oral tablet 1 tab(s) orally 2 times a day 14-Nov-2021 10:45 sacubitril-valsartan 97 mg-103 mg oral tablet 1 tab(s) orally 2 times a day 14-Nov-2021 10:45 sacubitril-valsartan 97 mg-103 mg oral tablet is continued as sacubitril-valsartan 97 mg-103 mg oral tablet Current OrdersDateHOME MEDICATIONS AT DISCHARGE DateReconciliation Comment/ Additional Information Acetaminophen Tablet (TYLENOL)DOSE = 650 mg Oral Every 6 Hours, PRN Pain - Mild (1-3)Clinician Notes: When tolerating PO 14-Nov-2021 10:28 Acetaminophen is not required Aspirin Enteric Coated Enteric Coated Tablet (ECOTRIN)DOSE = 81 mg Oral Daily 14-Nov-2021 10:28 Aspirin Enteric Coated is not required ceFAZolin 2 gram/ D5W 100 mL Premix IVPB (ANCEF)OnceRecommended Infusion Time: 30 minute(s)Clinician Notes: for patients 120 kg or less 14-Nov-2021 10:14 ceFAZolin 2 gram/ D5W 100 mL Premix IVPB is not required Docusate Capsule (COLACE)DOSE = 100 mg Oral 2 Times a Day 14-Nov-2021 10:28 Docusate is not required Lactated Ringers Infusion IV Bag Volume = 1,000 mL Run at: 75 mL/hr IntraVenous 14-Nov-2021 10:14 Lactated Ringers Infusion is not required Levothyroxine TabletDOSE = 300 microgram(s) Oral Daily 14-Nov-2021 12:45 Levothyroxine is not required Pantoprazole Enteric Coated Tablet (PROTONIX)DOSE = 40 mg Oral Daily 14-Nov-2021 10:28 Pantoprazole is not required Perflutren Lipid Microsphere (Activated) 1.3 mL / NaCL 0.9% T.V. 10 mL Injectable DOSE = 0.5 mL IntraVenous Push OnceClinician Notes: 1. Dilute 1.3 mL of activated DEFINITY with 8.7 mL of normal saline in a 10 mL syringe.2. Inject 0.5 mL of diluted 14-Nov-2021 10:28 Perflutren Lipid Microsphere (Activated) 1.3 mL / NaCL 0.9% T.V. 10 mL Injectable is not required Sodium Chloride 0.9% Injectable Flush via Peripheral LineVolume = 3 mL IntraVenous Flush Every 8 Hours and as Needed 14-Nov-2021 10:14 Sodium Chloride 0.9% Injectable Flush is not required traMADol Tablet (ULTRAM)DOSE = 50 mg Oral Every 6 Hours, PRN Pain - Mod (4-6) 14-Nov-2021 10:28 traMADol is not required Home Medications Added During Discharge Reconciliation Discharge Discharge Diagnosis< Z98.890 S/P mitral valve clip implantation;I34.0 Mitral regurgitation Discharge Provider, Cristobal Garcia Discharge Disposition : .Home Condition at Discharge: Satisfactory Discharge Communication Instructions for Nursing Only: Remove IV prior to discharge from hospital. Do not remove any midline, if present, witho (more content not included)... Normal [facility] Order Reconciliation Page 1 Admission Reconciliation Document Reconciliation Type: Admission requested on behalf of Janet Spears (Advanced Practice Nurse) done by Janet Spears ([employer]) Admission - Reconciliation: 14-Nov-2021 12:45 by: Janet Spears ([employer]) Home MedicationsEnteredLast Dose TakenReconciled with current Order Reconciliation Comment/ Additional Information carvedilol 12.5 mg oral tablet 1.5 tab(s) orally 2 times a [id number]-Nov-2021 Reviewed and Held cholecalciferol 50 mcg (2000 intl units) oral tablet 1 tab(s) orally once a day PM Reviewed and Held digoxin 125 mcg (0.125 mg) oral tablet 1 tab(s) orally once a [id number]-Nov-2021 PM Reviewed and Held furosemide 40 mg oral tablet 1 tab(s) orally once a [id number] PM Reviewed and Held levothyroxine 300 mcg (0.3 mg) oral tablet 1 tab(s) orally once a day Levothyroxine TabletDOSE = 300 microgram(s) Oral Dailylevothyroxine 300 mcg (0.3 mg) oral tablet continued as the inpatient order Levothyroxine magnesium oxide 400 mg oral tablet 1 tab(s) orally once a [id number]-Nov-2021 Reviewed and Held Multiple Vitamins with Iron oral tablet 1 tab(s) orally once a [id number]-Nov-2021 Reviewed and Held sacubitril-valsartan 97 mg-103 mg oral tablet 1 tab(s) orally 2 times a day Reviewed and Held Additional Current Orders Acetaminophen Tablet (TYLENOL)DOSE = 650 mg Oral Every 6 Hours, PRN Pain - Mild (1-3)Clinician Notes: When tolerating PO Aspirin Enteric Coated Enteric Coated Tablet (ECOTRIN)DOSE = 81 mg Oral Daily ceFAZolin 2 gram/ D5W 100 mL Premix IVPB (ANCEF)OnceRecommended Infusion Time: 30 minute(s)Clinician Notes: for patients 120 kg or less Diet 2 grams Sodium Special Instructions: advance as tolerated s/p bedside nursing swallow Docusate Capsule (COLACE)DOSE = 100 mg Oral 2 Times a Day Lactated Ringers Infusion IV Bag Volume = 1,000 mL Run at: 75 mL/hr IntraVenous May Participate in Room Service Yes Pantoprazole Enteric Coated Tablet (PROTONIX)DOSE = 40 mg Oral Daily Perflutren Lipid Microsphere (Activated) 1.3 mL / NaCL 0.9% T.V. 10 mL Injectable DOSE = 0.5 mL IntraVenous Push OnceClinician Notes: 1. Dilute 1.3 mL of activated DEFINITY with 8.7 mL of normal saline in a 10 mL syringe.2. Inject 0.5 mL of diluted DEFINITY when notified the images/film are unclear to enhance view of Left Ventricular borders.3. Repeat 0.5 mL of DEFINITY until clear images are obtained, not to exceed 10 mLs.4. Once images are obtained or limit of medication is reached, flush line with 10 mL of Normal Saline. Sodium Chloride 0.9% Injectable Flush via Peripheral LineVolume = 3 mL IntraVenous Flush Every 8 Hours and as Needed traMADol Tablet (ULTRAM)DOSE = 50 mg Oral Every 6 Hours, PRN Pain - Mod (4-6) Normal [facility] CORONAVIRUS 2019, SCREEN ASY MPTOMATICon 11-11-2021 SARS-CoV-2 (COVID-19) RNA LACY+probe Ql (Unsp spec) Not detected Normal Not Detected [facility] Comment on above: Result Comment: . This assay is designed to detect the N, ORF1ab and/or S genes of SARS-CoV-2 via nucleic acid amplification. A Negative (NOT DETECTED) result does not preclude 2019-nCoV infection since the adequacy of sample collection and/or low viral burden may result in presence of viral nucleic acids below the clinical sensitivity of this test method. Negative (NOT DETECTED) result should not be used as the sole basis for treatment or other patient management decisions. Rather negative results should be combined with clinical observations, patient history, and epidemiological information to make patient management decisions. Fact sheet for providers: https://www.fda.gov/media/123600/download Fact sheet for patients: https://www.fda.gov/media/367825/download This test has received FDA Emergency Use Authorization (EUA) and has been verified by [facility] ([facility]). This test is only authorized for the duration of time that circumstances exist to justify the authorization of the emergency use of in vitro diagnostic tests for the detection of SARS-CoV-2 virus and/or diagnosis of COVID-19 infection under section 564(b)(1) of the Act, 21 U.S.C. 360bbb-3(b)(1), unless the authorization is terminated or revoked sooner. [facility] is certified under CLIA-88 as qualified to perform high complexity testing. Testing is performed in the [facility] laboratories located at [address] [place] [address]. Performed By: #### C OAGS #### [facility] [address] [place] [id number] Lab Specimen Source Nasal, Nasopharyngeal Normal [facility] Comment on above: Performed By: #### C OAGS #### [facility] [address] [place] [address] Coronavirus 2019 RNA by PCR, Screening Asymptomticon 11-11-2021 Coronavirus 2019 RNA by PCR, Screening Asymptomtic Not detected Normal See Below [facility] [address] [place] Work Phone: Comment on above: SOURCE: Nasal, Nasop haryngealReference Range: Not Detected.This assay is designed to detect the N, ORF1ab and/or S genes of SARS-CoV-2 via nucleic acid amplification. A Negative (NOT DETECTED) result does not preclude 2019-nCoV infection since the adequacy of sample collection and/or low viral burden may result in presence of viral nucleic acids below the clinical sensitivity of this test method. Negative (NOT DETECTED) result should not be used as the sole basis for treatment or other patient management decisions. Rather negative results should be combined with clinical observations, patient history, and epidemiological information to make patient management decisions.Fact sheet for providers: https://www.fda.gov/media/868701/downloadFact sheet for patients: https://www.fda.gov/media/255383/downloadThis test has received FDA Emergency Use Authorization (EUA) and has been verified by [facility] ([facility]). This test is only authorized for the duration of time that circumstances exist to justify the authorization of the emergency use of in vitro diagnostic tests for the detection of SARS-CoV-2 virus and/or diagnosis of COVID-19 infection under section 564(b)(1) of the Act, 21 U.S.C. 360bbb-3(b)(1), unless the authorization is terminated or revoked sooner. [facility] is certified under CLIA-88 as qualified to perform high complexity testing. Testing is performed in the [facility] laboratories located at [address] [place] [address]. Covid 19 Resultson 2 SARS-CoV-2 (COVID-19) RNA LACY+probe Ql (Unsp spec) NEGATIVE COVID-19 Test Coronaviruses are common world-wide and are the cause of many common colds. SARS-COV2 is a new coronavirus that began circulating worldwide in 2019 so we are calling it COVID-19. It has been estimated that four out of five patients with COVID-19 will recover at home without the need for medical attention. Symptoms of COVID-19 may include cough, fever, shortness of breath, loss of taste or smell and other flu-like symptoms including chills, sore muscles, sore throat, and headache. Severe illness is more common in older people and people with other health problems such as high blood pressure, obesity, and immune system problems. If the test is positive, you have COVID-19. You will be contacted by the ordering physicians office and instructed to remain on home isolation, in accordance with CDC guidelines. You may also be contacted by the [facility] to see if any of your close contacts may have been exposed to the virus and need to quarantine. If the test is negative, you likely do not have COVID-19 at this time, but you still may have a different illness that can spread to other people (like Influenza, or the Flu) and could still be at risk for getting COVID-19. We recommend that you stay away from other people to limit the spread of illness until your symptoms are improving and you are fever-free for 24 hours without the use of fever lowering medications such as acetaminophen or ibuprofen. No test is 100% accurate so if you are still concerned you may have COVID-19, talk to your doctor about the need to continue to stay away from others. Medicines Unless your provider told you not to use the following: Acetaminophen (Tylenol and others) is generally safe. Anti-inflammatory medications, such as Ibuprofen (Advil or Motrin) or Naproxen (Aleve) can also be used. Qwgu-gyb-skqdfxa cough and cold medicines can be used according to the instructions on the package. Some xujd-hmq-fmbffki medicines also contain acetaminophen. Make sure you are not taking more than your recommended dose. For those not hospitalized, there is no specific treatment available for this illness. Antibiotics do not treat Coronaviruses. Follow-Up Follow up with your doctor by scheduling a virtual visit or consider follow-up at one of our urgent care fever clinics. If you are having difficulty breathing, or are very weak and having difficulty standing, this is a medical emergency. Call 911 or have someone take you to the nearest emergency room immediately. If possible, wear a facemask. Additional guidance from the CDC for patients who tested POSITIVE for COVID-19 How to isolate: Isolate yourself in a specific room at home and limit your contact with others. Use a separate bathroom from other members of the household, when possible. Leave home only to get essential medical care. Do not go to work, school or public areas. Avoid using public transportation, ride-sharing, or taxis. Restrict contact with pets and other animals. If you must care for your pet or be around animals while you are sick, wash your hands before and after your interaction and wear a facemask. Make sure that shared spaces in the home have good airflow, such as by an air conditioner or an opened window, weather permitting. Personal Hygiene Procedures: Wear a face mask when in the same room as other people or pets. If a face mask interferes with your breathing, others should wear a mask when sharing space with you. Frequent hand-washing: wash your hands with soap and water for at least 20 seconds. If soap and water are not available, use alcohol-based hand funeral home location manager. Avoid touching your eyes, nose, and mouth with unwashed hands. Household Hygiene Procedures: Avoid sharing personal household items such as dishes, glassware, cups, eating utensils, towels or bedding with other people or pets in your home. After use, these items should be washed with soap and hot water. Disinfect all high-touch surfaces every day with antibacterial cleaning solutions such as Lysol wipes, bleach, cleansers, etc. High-touch surfaces include tabletops, doorknobs, bathroom fixtures, toilets, phones, keyboards, tablets and bedside tables. Immediately clean any surfaces that may have blood, poop or body fluids on them, using antibacterial cleaning solutions such as Lysol wipes, bleach, cleansers, etc. If clothing or bedding come into contact with blood, poop or body fluids, they should be washed immediately. Follow the directions on the laundry detergent and clothing labels but hot water is recommended when possible. Stopping home isolation precautions: If possible, consult your doctor before stopping home isolation precautions. According to the CDC, you can discontinue home isolation precautions when you have met both of these criteria: Your fever and respiratory symptoms have been gone for 24 amber (more content not included)... Normal [facility] ARTERIAL BLOOD GAS,CO-OXon 0 10-31-2021 BASE EXCESS-BLOOD 1.3 mmol/L Normal -2.0 - 3.0 [facility] Comment on above: Performed By: #### C OAGS #### [facility] [address] [place] [address] BICARB, CALCULATED 25.0 mmol/L Normal 22.0 - 26.0 [facility] Comment on above: Performed By: #### C OAGS #### [facility] [address] [place] [address] CO HGB 1.7 % Abnormal [facility] Comment on above: Result Comment: REF VALUES NONSMOKERS 0.5-1.5% SMOKERS 0.5-10.0% Performed By: #### C OAGS #### [facility] [address] [place] [address] DEOXY HGB 1.5 % Normal 0.0 - 5.0 [facility] Comment on above: Performed By: #### C OAGS #### [facility] [address] [place] [address] Hemoglobin (Bld) [Mass/Vol] 15.9 g/dL Normal 13.5 - 17.5 [facility] Comment on above: Performed By: #### C OAGS #### [facility] [address] [place] [address] MET HGB 1.2 % Normal 0.0 - 1.5 [facility] Comment on above: Performed By: #### C OAGS #### [facility] [address] [place] [address] OXY HGB 95.6 % Normal 94.0 - 98.0 [facility] Comment on above: Performed By: #### C OAGS #### [facility] [address] [place] [address] Oxygen (Bld) [Partial pressure] 94 mm[Hg] Normal 85 - 95 [facility] Comment on above: Performed By: #### C OAGS #### [facility] [address] [place] [address] PATIENT TEMPERATURE 37.0 degrees C Normal [facility] Comment on above: Result Comment: NOTE : PATIENT RESULTS ARE NOT CORRECTED FOR TEMPERATURE. Performed By: #### C OAGS #### [facility] [address] [place] [address] PCO2 36 mmHg Low 38 - 42 [facility] Comment on above: Performed By: #### C OAGS #### [facility] [address] [place] [address] pH (Bld) 7.45 [pH] High 7.38 - 7.42 [facility] Comment on above: Performed By: #### C OAGS #### [facility] [address] [place] [address] SO2 99 % Normal 94 - 100 [facility] Comment on above: Performed By: #### C OAGS #### [facility] [address] [place] [address] CBC AND DIFFERENTIALon 10-31 % AUTOMATED IMMATURE GRAN 0.6 % Normal 0.0 - 0.9 [facility] Comment on above: Result Comment: Misa ture Granulocyte Count (IG) includes promyelocytes, myelocytes and metamyelocytes but does not include bands. Percent differential counts (%) should be interpreted in the context of the absolute cell counts (cells/L). Performed By: #### C BCDF #### [facility] [address] [place] [address] Basophils (Bld) [#/Vol] 0.05 10*3/uL Normal 0.00 - 0.10 [facility] Comment on above: Performed By: #### C BCDF #### [facility] [address] [place] [address] Basophils/100 WBC (Bld) 0.8 % Normal 0.0 - 2.0 [facility] Comment on above: Performed By: #### C BCDF #### [facility] [address] [place] [address] Eosinophils (Bld) [#/Vol] 0.16 10*3/uL Normal 0.00 - 0.70 [facility] Comment on above: Performed By: #### C BCDF #### [facility] [address] [place] [address] Eosinophils/100 WBC (Bld) 2.5 % Normal 0.0 - 6.0 [facility] Comment on above: Performed By: #### C BCDF #### [facility] [address] [place] [address] Erythrocyte distribution width (RBC) [Ratio] 14.4 % Normal 11.5 - 14.5 [facility] Comment on above: Performed By: #### C BCDF #### [facility] [address] [place] [address] Hematocrit (Bld) [Volume fraction] 51.4 % Normal 41.0 - 52.0 [facility] Comment on above: Performed By: #### C BCDF #### [facility] [address] [place] [address] Hemoglobin (Bld) [Mass/Vol] 16.6 g/dL Normal 13.5 - 17.5 [facility] Comment on above: Performed By: #### C BCDF #### [facility] [address] [place] [address] Lymphocytes (Bld) [#/Vol] 1.11 10*3/uL Low 1.20 - 4.80 [facility] Comment on above: Performed By: #### C BCDF #### [facility] [address] [place] [address] Lymphocytes/100 WBC (Bld) 17.0 % Normal 13.0 - 44.0 [facility] Comment on above: Performed By: #### C BCDF #### [facility] [address] [place] [address] MCHC (RBC) [Mass/Vol] 32.3 g/dL Normal 32.0 - 36.0 [facility] Comment on above: Performed By: #### C BCDF #### [facility] [address] [place] [address] MCV (RBC) [Entitic vol] 101 fL High 80 - 100 [facility] Comment on above: Performed By: #### C BCDF #### [facility] [address] [place] [address] Monocytes (Bld) [#/Vol] 0.56 10*3/uL Normal 0.10 - 1.00 [facility] Comment on above: Performed By: #### C BCDF #### [facility] [address] [place] [address] Monocytes/100 WBC (Bld) 8.6 % Normal 2.0 - 10.0 [facility] Comment on above: Performed By: #### C BCDF #### [facility] [address] [place] [address] Neutrophils (Bld) [#/Vol] 4.60 10*3/uL Normal 1.20 - 7.70 [facility] Comment on above: Performed By: #### C BCDF #### [facility] [address] [place] [address] Neutrophils/100 WBC (Bld) 70.5 % Normal 40.0 - 80.0 [facility] Comment on above: Performed By: #### C BCDF #### [facility] [address] [place] [address] NUCLEATED RBC 0.0 /100 WBC Normal 0.0-0.0 [facility] Comment on above: Performed By: #### C BCDF #### [facility] [address] [place] [address] Platelets (Bld) [#/Vol] 242 10*3/uL Normal 150 - 450 [facility] Comment on above: Performed By: #### C BCDF #### [facility] [address] [place] [address] RBC 5.11 x10E12/L Normal 4.50 - 5.90 [facility] Comment on above: Performed By: #### C BCDF #### [facility] [address] [place] [address] WBC (Bld) [#/Vol] 6.5 10*3/uL Normal 4.4 - 11.3 [facility] Comment on above: Performed By: #### C BCDF #### [facility] [address] [place] [address] COAGULATION SCREENon 022 aPTT Coag (Bld) [Time] 37 s Normal 26 - 39 [facility] Comment on above: Result Comment: THE APTT IS NO LONGER USED FOR MONITORING UNFRACTIONATED HEPARIN THERAPY. FOR MONITORING HEPARIN THERAPY, USE THE HEPARIN ASSAY. Performed By: #### C OAGS #### [facility] [address] [place] [address] PT Coag (PPP) [Time] 12.2 s Normal 9.8 - 13.4 [facility] Comment on above: Performed By: #### C OAGS #### [facility] [address] [place] [address] PT, INR 1.1 Normal 0.9 - 1.1 [facility] Comment on above: Performed By: #### C OAGS #### [facility] [address] [place] [address] COMPREHENSIVE PANELon 2021 Albumin [Mass/Vol] 4.3 g/dL Normal 3.4 - 5.0 [facility] Comment on above: Performed By: #### C MP #### [facility] [address] [place] [address] ALP [Catalytic activity/Vol] 75 U/L Normal 33 - 136 [facility] Comment on above: Performed By: #### C MP #### [facility] [address] [place] [address] ALT [Catalytic activity/Vol] 15 U/L Normal 10 - 52 [facility] Comment on above: Result Comment: Brittani ents treated with Sulfasalazine may generate falsely decreased results for ALT. Performed By: #### C MP #### [facility] [address] [place] [address] Anion gap [Moles/Vol] 17 mmol/L Normal 10 - 20 [facility] Comment on above: Performed By: #### C MP #### [facility] [address] [place] [address] AST [Catalytic activity/Vol] 21 U/L Normal 9 - 39 [facility] Comment on above: Performed By: #### C MP #### [facility] [address] [place] [address] Bilirubin [Mass/Vol] 1.0 mg/dL Normal 0.0 - 1.2 [facility] Comment on above: Performed By: #### C MP #### [facility] [address] [place] [address] Calcium [Mass/Vol] 9.3 mg/dL Normal 8.6 - 10.6 [facility] Comment on above: Performed By: #### C MP #### [place] [address] [place] [address] Chloride [Moles/Vol] 103 mmol/L Normal 98 - 107 [facility] Comment on above: Performed By: #### C MP #### [facility] [address] [place] [address] Creatinine [Mass/Vol] 1.35 mg/dL High 0.50 - 1.30 [facility] Comment on above: Performed By: #### C MP #### [facility] [address] [place] [address] GFR/1.73 sq M.predicted among non-blacks MDRD (S/P/Bld) [Vol rate/Area] 57 mL/min/{1.73_m2} Abnormal >90 [facility] Comment on above: Result Comment: CALC ULATIONS OF ESTIMATED GFR ARE PERFORMED USING THE 2020 CKD-EPI STUDY REFIT EQUATION WITHOUT THE RACE VARIABLE FOR THE IDMS-TRACEABLE CREATININE METHODS. https://jasn.asnjournals.org/content/early//ASN.16081 30766 Performed By: #### C MP #### [facility] [address] [place] [address] Glucose [Mass/Vol] 88 mg/dL Normal 74 - 99 [facility] Comment on above: Performed By: #### C MP #### [facility] [address] [place] [address] HCO3 (Bld) [Moles/Vol] 25 mmol/L Normal 21 - 32 [facility] Comment on above: Performed By: #### C MP #### [facility] [address] [place] [address] Potassium [Moles/Vol] 5.0 mmol/L Normal 3.5 - 5.3 [facility] Comment on above: Performed By: #### C MP #### [facility] [address] [place] [address] Protein [Mass/Vol] 7.3 g/dL Normal 6.4 - 8.2 [facility] Comment on above: Performed By: #### C MP #### [facility] [address] [place] [address] Sodium [Moles/Vol] 140 mmol/L Normal 136 - 145 [facility] Comment on above: Performed By: #### C MP #### [facility] [address] [place] [address] Urea nitrogen [Mass/Vol] 12 mg/dL Normal 6 - 23 [facility] Comment on above: Performed By: #### C MP #### [facility] [address] [place] [address] Complete Blood Count + Diffe rentialon 10-31-2021 Basophils/100 WBC (Bld) 0.8 % 0.0 - 2.0 [facility] [place] [facility] Work Phone: Erythrocyte distribution width (RBC) [Ratio] 14.4 % See Below [facility] [place] [facility] Work Phone: Comment on above: Reference Range: 11. 5 - 14.5 Hematocrit (Bld) [Volume fraction] 51.4 % See Below [facility] [place] [facility] Work Phone: Comment on above: Reference Range: 41. 0 - 52.0 Hemoglobin (Bld) [Mass/Vol] 16.6 g/dL See Below [facility] [place] [facility] Work Phone: [phone] Comment on above: Reference Range: 13. 5 - 17.5 Lymphocytes/100 WBC (Bld) 17.0 % See Below [facility] [place] [facility] Work Phone: [phone] Comment on above: Reference Range: 13. 0 - 44.0 MCHC (RBC) [Mass/Vol] 32.3 g/dL See Below [facility] [place] [facility] Work Phone: [phone] Comment on above: Reference Range: 32. 0 - 36.0 MCV (RBC) [Entitic vol] 101 fL above high threshold 80 - 100 [facility] [place] [facility] Work Phone: [phone] Monocytes/100 WBC (Bld) 8.6 % 2.0 - 10.0 [facility] Work Phone: [phone] Neutrophils/100 WBC (Bld) 70.5 % See Below [facility] Work Phone: [phone] Comment on above: Reference Range: 40. 0 - 80.0 Platelets (Bld) [#/Vol] 242 10*3/uL 150 - 450 [facility] Work Phone: [phone] RBC (Bld) [#/Vol] 5.11 {x10E12/L} See Below [facility] Work Phone: [phone] Comment on above: Reference Range: 4.5 0 - 5.90 WBC (Bld) [#/Vol] 6.5 10*3/uL 4.4 - 11.3 [facility] [place] [facility] Work Phone: [phone] Complete Blood Count + Differential 0.05 {x10E9/L} See Below [facility] Work Phone: [phone] Comment on above: Reference Range: 0.0 0 - 0.10 Complete Blood Count + Differential 0.16 {x10E9/L} See Below [facility] Work Phone: Comment on above: Reference Range: 0.0 0 - 0.70 Complete Blood Count + Differential 0.56 {x10E9/L} See Below [facility] Work Phone: Comment on above: Reference Range: 0.1 0 - 1.00 Complete Blood Count + Differential 1.11 {x10E9/L} below low threshold See Below [facility] Work Phone: Comment on above: Reference Range: 1.2 0 - 4.80 Complete Blood Count + Differential 4.60 {x10E9/L} See Below [facility] Work Phone: Comment on above: Reference Range: 1.2 0 - 7.70 Complete Blood Count + Differential 2.5 % 0.0 - 6.0 [facility] Work Phone: [phone] Complete Blood Count + Differential 0.6 % 0.0 - 0.9 [facility] [place] [facility] Work Phone: Comment on above: Immature Granulocyte Count (IG) includes promyelocytes, myelocytes and metamyelocytes but does not include bands. Percent differential counts (%) should be interpreted in the context of the absolute cell counts (cells/L). Complete Blood Count + Differential 0.0 {/100_WBC} 0.0-0.0 [facility] Work Phone: Laboratory - Blood bankon ABO group Nom (Bld) O [facility] Work Phone: Blood group antibody screen Ql Negative [facility] Work Phone: Rh immune globulin screen (Bld) [Interp] Positive [facility] Work Phone: Laboratory - Chemistry and C hemistry - challengeon 10-31-2021 Albumin BCP dye [Mass/Vol] 4.3 g/dL 3.4 - 5.0 [facility] 6 Work Phone: [phone] ALP [Catalytic activity/Vol] 75 U/L 33 - 136 [facility] Work Phone: [phone] ALT With P-5'-P [Catalytic activity/Vol] 15 U/L 10 - 52 [facility] [place] [facility] Work Phone: [phone] Comment on above: Patients treated wit h Sulfasalazine may generate falsely decreased results for ALT. Anion gap [Moles/Vol] 17 mmol/L 10 - 20 [facility] 6 Work Phone: [phone] AST With P-5'-P [Catalytic activity/Vol] 21 U/L 9 - 39 [facility] [place] [address] Work Phone: [phone] Bilirubin [Mass/Vol] 1.0 mg/dL 0.0 - 1.2 [facility] 6 Work Phone: [phone] Calcium [Mass/Vol] 9.3 mg/dL 8.6 - 10.6 [facility] 6 Work Phone: [phone] Chloride [Moles/Vol] 103 mmol/L 98 - 107 [facility] 6 Work Phone: [phone] CO2 [Moles/Vol] 25 mmol/L 21 - 32 [facility] Work Phone: [phone] Creatinine [Mass/Vol] 1.35 mg/dL above high threshold See Below [facility] Work Phone: [phone] Comment on above: Reference Range: 0.5 0 - 1.30 Glucose [Mass/Vol] 88 mg/dL 74 - 99 [facility] [place] [facility] Work Phone: [phone] Potassium [Moles/Vol] 5.0 mmol/L 3.5 - 5.3 [facility] [place] [address] Work Phone: [phone] Protein [Mass/Vol] 7.3 g/dL 6.4 - 8.2 [facility] [place] [address] Work Phone: [phone] Sodium [Moles/Vol] 140 mmol/L 136 - 145 [facility] [place] [address] Work Phone: [phone] Urea nitrogen [Mass/Vol] 12 mg/dL 6 - 23 [facility] [place] [address] Work Phone: [phone] Base excess Calc (Bld) [Moles/Vol] 1.3 mmol/L -2.0 - 3.0 [facility] [address] [place] Work Phone: [phone] Carboxyhemoglobin (BldA) [Mass fraction] 1.7 % Abnormal [facility] [address] [place] Work Phone: [phone] Comment on above: REF VALUESNONSMOKERS 0.5-1.5%SMOKERS 0.5-10.0% CO2 (Bld) [Partial pressure] 36 mm[Hg] below low threshold 38 - 42 [facility] [address] [place] Work Phone: [phone] HCO3 (Bld) [Moles/Vol] 25.0 mmol/L See Below [facility] [address] [place] Work Phone: [phone] Comment on above: Reference Range: 22. 0 - 26.0 Methemoglobin (BldA) [Mass fraction] 1.2 % 0.0 - 1.5 [facility] [address] [place] Work Phone: [phone] Oxygen (Bld) [Partial pressure] 94 mm[Hg] 85 - 95 [facility] [address] [place] Work Phone: [phone] Oxyhemoglobin (BldA) [Mass fraction] 95.6 % See Below [facility] [address] [place] Work Phone: Comment on above: Reference Range: 94. 0 - 98.0 pH (Bld) 7.45 [pH] above high threshold See Below [facility] [place] Work Phone: Comment on above: Reference Range: 7.3 8 - 7.42 Laboratory - Coagulationon 0 10-31-2021 aPTT Coag (PPP) [Time] 37 s 26 - 39 [facility] [place] [address] Work Phone: Comment on above: THE APTT IS NO LONGE R USED FOR MONITORING UNFRACTIONATED HEPARIN THERAPY. FOR MONITORING HEPARIN THERAPY, USE THE HEPARIN ASSAY. INR Coag (PPP) [Relative time] 1.1 {INR} 0.9 - 1.1 [facility] [place] [address] Work Phone: PT Coag (PPP) [Time] 12.2 s 9.8 - 13.4 [facility] [place] [address] Work Phone: Laboratory - Hematology and Cell countson 10-31-2021 Deoxyhemoglobin (BldA) [Mass fraction] 1.5 % 0.0 - 5.0 [facility] [place] Work Phone: Hemoglobin (Bld) [Mass/Vol] 15.9 g/dL See Below [facility] [place] Work Phone: Comment on above: Reference Range: 13. 5 - 17.5 MRSA Screenon 10-31-2021 Staphylococcus sp identified Org specific cx Nom (Unsp spec) Abnormal [facility] [place] Work Phone: No Panel Informationon 10-31 57 {mL/min/1.73m2} Abnormal >90 [facility] [place] [address] Work Phone: Comment on above: CALCULATIONS OF AYANA MATED GFR ARE PERFORMED USING THE 2020 CKD-EPI STUDY REFIT EQUATION WITHOUT THE RACE VARIABLE FOR THE IDMS-TRACEABLE CREATININE METHODS.https://jasn.asnjournals.org/content/early/A SN.[email or web address] Radiologyon 10-31-2021 XR Chest 2 Views Normal [facility] [place] [facility] Work Phone: STAPH/MRSA SCREENon 11-01-19 STAPH/MRSA SCREEN PATIENT: BETTY DUENAS LOCATION: [facility] TANG#: [id number] : 54 AGE: SEX: M ORDERED BY: MURPHY GARCIA SOURCE: ANTERIOR NARES COLLECTED: 10/31/21 14:24 ANTIBIOTICS AT [facility].: RECEIVED : 10/31/21 17:18 SITE: Nasal R E S U L T S STAPH/MRSA SCREEN FINAL 11/02/21 08:51 ISOLATE1 : Staphylococcus aureus METHICILLIN SENSITIVE STAPHYLOCOCCUS AUREUS (MSSA) Normal [facility] Comment on above: Performed By: #### S TAPH #### [facility] [address] [place] [address] TH CHEST 2 VIEW PA AND LATon 10-31-2021 TH CHEST 2 VIEW PA AND LAT Patient Name: CORKY DUENAS STUDY: TH CHEST 2 VIEW PA AND LAT; 10/31/2021 3:06 pm INDICATION: dyspnea . COMPARISON: 06/10/2020 ACCESSION NUMBER(S): [id number] ORDERING CLINICIAN: CRISTOBAL GARCIA FINDINGS: PA and lateral radiographs the chest, including PA dual energy radiographs of the chest are provided. A left subclavian approach pacemaker/AICD, with its leads projecting over the cardiac chambers, similar to prior. Cardiomediastinal silhouette is normal in size and contour. Aortic knob calcifications are seen. There is mild perihilar interstitial prominence, without ata pulmonary edema. No focal consolidation, pleural effusion or pneumothorax. There is mild elevation of the right hemidiaphragm. No remarkable upper abdominal findings. No acute osseous abnormality. IMPRESSION: 1. Mild perihilar interstitial component of mild perihilar edema. Otherwise, no focal consolidation, pleural effusion or pneumothorax. 2. Mild elevation of the right hemidiaphragm. I personally reviewed the images/study and I agree with the findings as stated. This study was interpreted at [facility], [place], [place]. Electronically signed by: JEFF CRESPO MD Normal [facility] TYPE + SCREENon 10-31-2021 ABO TYPE O Normal [facility] Comment on above: Performed By: #### T +S #### [facility] [address] [place] [address] RH TYPE Positive Normal [facility] Comment on above: Performed By: #### T +S #### [facility] [address] [place] [address] URINALYSIS WITH CULTURE IF I NDICATEDon 10-31-2021 Appearance (U) CLEAR Normal CLEAR [facility] Comment on above: Performed By: #### U ARFX #### [facility] [address] [place] [address] Bilirubin Ql (U) Negative Normal NEGATIVE [facility] Comment on above: Performed By: #### U ARFX #### [facility] [address] [place] [address] Color (U) YELLOW Normal STRAW,YELLO W [facility] Comment on above: Performed By: #### U ARFX #### [facility] [address] [place] [address] Glucose Ql (U) Negative Normal NEGATIVE [facility] Comment on above: Performed By: #### U ARFX #### [facility] [address] [place] [address] Hemoglobin Ql (U) Negative Normal NEGATIVE [facility] Comment on above: Performed By: #### U ARFX #### [facility] [address] [place] [address] Ketones Ql (U) Negative Normal NEGATIVE [facility] Comment on above: Performed By: #### U ARFX #### [facility] [address] [place] [address] Leukocyte esterase Test strip Ql (U) Negative Normal NEGATIVE [facility] Comment on above: Performed By: #### U ARFX #### [facility] [address] [place] [address] Nitrite Ql (U) Negative Normal NEGATIVE [facility] Comment on above: Performed By: #### U ARFX #### [facility] [address] [place] [address] pH (U) 6.0 [pH] Normal 5.0 - 8.0 [facility] Comment on above: Performed By: #### U ARFX #### [facility] [address] [place] [address] Protein Ql (U) Negative Normal NEGATIVE [facility] Comment on above: Performed By: #### U ARFX #### [facility] [address] [place] [address] Specific gravity (U) [Rel density] 1.011 Normal 1.005 - 1.035 [facility] Comment on above: Performed By: #### U ARFX #### [facility] [address] [place] [address] Urobilinogen (U) [Mass/Vol] mg/dL Normal 0.0 - 1.9 [facility] Comment on above: Performed By: #### U ARFX #### [facility] [address] [place] [address] Color (U) YELLOW See Below [facility] [place] [facility] Work Phone: Comment on above: Reference Range: STR AW,YELLOW Glucose Ql (U) Negative NEGATIVE [facility] [place] [facility] Work Phone: Ketones Ql (U) Negative NEGATIVE [facility] [place] [facility] Work Phone: Leukocyte esterase Test strip Ql (U) Negative NEGATIVE [facility] [place] [facility] Work Phone: pH (U) 6.0 [pH] 5.0 - 8.0 [facility] [place] [facility] Work Phone: Protein (U) [Mass/Vol] Negative NEGATIVE [facility] [place] [facility] Work Phone: RBC (U) [#/Vol] Negative NEGATIVE [facility] [place] [address] Work Phone: Specific gravity (U) [Rel density] 1.011 1 See Below [facility] [place] [address] Work Phone: Comment on above: Reference Range: 1.0 05 - 1.035 URINALYSIS WITH CULTURE IF INDICATED Negative NEGATIVE [facility] [place] [address] Work Phone: URINALYSIS WITH CULTURE IF INDICATED <2.0 0.0 - 1.9 [facility] [place] [address] Work Phone: URINALYSIS WITH CULTURE IF INDICATED CLEAR CLEAR [facility] [place] [address] Work Phone: Blood Pressure Cuff Sizeon 0 09-09-2021 Fall risk assessment a) No falls within the last year [facility] [address] [place] Work Phone: Tobacco use status CPHS b) No [facility] [address] [place] Work Phone: [phone] Blood Pressure Cuff Size Adult [facility] [address] [place] Work Phone: Electrocardiogram 12 Leadon 09-09-2021 Electrocardiogram 12 Lead Ventricular Rate 74 Atrial Rate 74 P-R Interval 122 QRS Duration 162 Q-T Interval 428 QTC Calculation(Bazett) 475 P [place] 64 R [place] 78 T [place] -58 QRS Count 12 Q Onset 196 P Onset 135 P Offset 189 T Offset 410 QTC Fredericia 459 Diagnosis Class Borderline Abnormal Diagnosis Electronic ventricular pacemaker When compared with ECG of 06-OCT-2020 02:28, Vent. rate has increased BY 3 BPM Confirmed by Jayce Calderon ([id number]) on 09/09/2021 4:22:[address] [facility] No Panel Informationon 09-09 [email or web address] ?[email or web address]=[id number]&Date =06-06-2022&Time=11%3a46% 3a49%3a00&TestType=ECG&Si te=1&OutputType=PDF&Ext=P DF [facility] [address] [place] Work Phone: [phone] Electronic ventricul ar pacemaker [facility] [address] [place] Work Phone: [phone] Borderline Abnormal [facility] [address] [place] Work Phone: [phone] [facility] [address] [place] Work Phone: [phone] [facility] [address] [place] Work Phone: [phone] [facility] [address] [place] Work Phone: [phone] [facility] [address] [place] Work Phone: [phone] 1 [facility] [address] [place] Work Phone: [phone] [facility] [address] [place] Work Phone: [phone] 1 [facility] [address] [place] Work Phone: [phone] 1 [facility] [address] [place] Work Phone: [phone] 1 [facility] [address] [place] Work Phone: [phone] [facility] [address] [place] Work Phone: [phone] [facility] [address] [place] Work Phone: [phone] 1 [facility] [address] [place] Work Phone: [phone] 1 [facility] [address] [place] Work Phone: [phone] 1 [facility] [address] [place] Work Phone: Office Visit (Cardiac Surger y)on 09-09-2021 Follow-up visit Diagnoses/Problems Assessed Mitral regurgitation (424.0) (I34.0) severe, echo 12/2019 Tricuspid regurgitation (397.0) (I07.1) severe, echo December 2019 Provider Impressions # severe functional mitral regurgitation # Non-ischemic cardiomyopathy, HFrEF, s/p TECHNICAL APPLICATIONS SPECIALIST-D Considering his cardiac comorbidities including severely reduced LVEF and functional etiology of MR, on top of increased risk of conventional surgery, transcatheter approach would be a reasonable option. Case discussed with Dr. Garcia and Dr. Ojeda. All exams including echocardiogram, R/LHC, TTE/LUCAS will be reviewed and taken into account. After aforementioned testing and consultation, the patient will be discussed at Valve Team meeting for final decision making. Chief Complaint Patient is here for a Valve AND Structural Heart evaluation for mitral / tricuspid regurgitation following a referral by Dr. Diaz Canchola. RUBY FraserN, RN Adult Risk ScreeningThere are no spiritual/cultural practices/values/needs that are important to know Initial Fall Risk Screening: CORKY has not fallen in the last 6 months. The patient is not using an assistive device. Living Will. Living Will: No living will on file. Healthcare POA: No healthcare proxy on file. History of Present Illness Explosive Operator: Dr. Diaz Canchola Patient is a pleasant 70 year-old male with previous medical history significant for hypertension, non-ischemic cardiomyopathy, s/p TECHNICAL APPLICATIONS SPECIALIST-D, who was referred for evaluation of mitral and tricuspid regurgitation. Patient endorses progressively worsening dyspnea with minimal exertion (walking less than 1 block) and orthopnea. NYHA: Class 3 Frailty score: 0/5 EKG: pacing rhythm TTE: LVEF 20%, severe MR, severe TR, RVSP 54.5 mmHg LUCAS: LVEF 15-20%, severe MR with central jet, severe TR LHC (): normal coronaries Dental assessment: no significant signs of infection STS Score: Risk of Mortality: 5.448% Renal Failure: 3.520% Permanent Stroke: 1.338% Prolonged Ventilation: 14.742% DSW Infection: 0.105% Reoperation: 5.124% Morbidity or Mortality: 18.746% Short Length of Stay: 26.799% Long Length of Stay: 9.303% Review of Systems Constitutional: not feeling tired. Eyes: no eyesight problems. ENT: no hearing loss and no nosebleeds. Cardiovascular: shortness of breath, but no intermittent leg claudication and as noted in HPI. Respiratory: shortness of breath during exertion, but no chronic cough and no shortness of breath. Gastrointestinal: no change in bowel habits and no blood in stools. Genitourinary: no urinary frequency and no hematuria. Skin: no skin rashes. Neurological: no seizures and no frequent falls. Psychiatric: no depression and not suicidal. All other systems have been reviewed and are negative for complaint. Active Problems Problems ACC/AHA stage D heart failure (428.9) (I50.84) Biventricular ICD (implantable cardioverter-defibrillato r) in place (V45.02) (Z95.810) BMI 24.0-24.9, adult (V85.1) (Z68.24) Cardiomyopathy (425.4) (I42.9) CHF NYHA class III (428.0) (I50.9) Chronic systolic congestive heart failure (428.22,428.0) (I50.22) CKD (chronic kidney disease) (585.9) (N18.9) Complete heart block (426.0) (I44.2) Dyspnea on exertion (786.09) (R06.00) Essential hypertension (401.9) (I10) Former smoker (V15.82) (Z87.891) Goals of care, counseling/discussion (V65.49) (Z71.89) Heart failure (428.9) (I50.9) History of orthopnea (V15.89) (Z87.898) HTN (hypertension) (401.9) (I10) Hypothyroid (244.9) (E03.9) Irregular heart beat (427.9) (I49.9) LBBB (left bundle branch block) (426.3) (I44.7) Lightheadedness (780.4) (R42) Mitral regurgitation (424.0) (I34.0) severe, echo 12/2019 Nonischemic cardiomyopathy (425.4) (I42.8) NSVT (nonsustained ventricular tachycardia) (427.1) (I47.2) NYHA class 3 heart failure with reduced ejection fraction (428.9) (I50.20) Overweight (278.02) (E66.3) Palliative care encounter (V66.7) (Z51.5) Pulmonary hypertension (416.8) (I27.20) Sinus node dysfunction (427.81) (I49.5) Stage 3 chronic kidney disease (585.3) (N18.30) Tricuspid regurgitation (397.0) (I07.1) severe, echo December 2019 Surgical History Problems History of Appendectomy History of Cardiac catheterization History of Cardioverter defibrillator insertion Bivent ICD placed 01/2020 History of Cardioverter defibrillator removal History of Cholecystectomy History of Complete colonoscopy History of Pacemaker insertion History of Tonsillectomy with adenoidectomy Family History Mother Family history of congestive heart failure (V17.49) (Z82.49) Family history of diabetes mellitus (V18.0) (Z83.3) Family history of hypertension (V17.49) (Z82.49) Father FH: malignant neoplasm of brain (V16.8) (Z80.8) Social History Problems Caffeine use (V49.89) (Z78.9) Former smoker (V15.82) (Z87.891) No alcohol use No illicit drug use Al (more content not included)... Normal [facility] Office Visit (Cardiology)on 09-09-2021 Follow-up visit Chief Complaint severe mitral regurgitation. Adult Risk Screening There are no spiritual/cultural practices/values/needs that are important to know Initial Fall Risk Screening: CORKY has fallen in the last 6 months. His fall did not result in injury. CORKY does not have a fear of falling. He does not need assistance with sitting, standing or walking. Does not need assistance walking in his home. He does not need assistance in an unfamiliar setting. Pain Scale: On a scale of 0 to 10, the patient rates the pain at 0. Living Will. Living Will: No living will on file. Healthcare POA: No healthcare proxy on file. Tobacco Screening: CORKY does not use tobacco. Domestic Violence Screen: Does not feel threatened or abused physically, emotionally or sexually. Do you feel UNSAFE? The patient feels safe in the home. Depression/Suicide Screening: During the past 2 weeks, the patient has not felt down, depressed or hopeless. During the past 2 weeks, the patient has not felt little interest or pleasure in doing things. He does not have a risk of suicide. He has not had thoughts of harming others. Nutrition Screening: In the past month, there was not a day when I or anyone in my family went hungry because there was not enough food. History of Present Illness Explosive Operator: Dr. Diaz Canchola Patient is a pleasant 70 year-old male with previous medical history significant for hypertension, non-ischemic cardiomyopathy, s/p TECHNICAL APPLICATIONS SPECIALIST-D, who was referred for evaluation of mitral and tricuspid regurgitation. Patient endorses progressively worsening dyspnea with minimal exertion (walking less than 1 block) and orthopnea. NYHA: Class 3 Frailty score: 0/5 EKG: pacing rhythm TTE: LVEF 20%, severe MR, severe TR, RVSP 54.5 mmHg LUCAS: LVEF 15-20%, severe MR with central jet, severe TR LHC (): normal coronaries Dental assessment: no significant signs of infection STS Score: Risk of Mortality: 5.448% Renal Failure: 3.520% Permanent Stroke: 1.338% Prolonged Ventilation: 14.742% DSW Infection: 0.105% Reoperation: 5.124% Morbidity or Mortality: 18.746% Short Length of Stay: 26.799% Long Length of Stay: 9.303% *Active Problems Problems ACC/AHA stage D heart failure (428.9) (I50.84) Biventricular ICD (implantable cardioverter-defibrillato r) in place (V45.02) (Z95.810) BMI 24.0-24.9, adult (V85.1) (Z68.24) Cardiomyopathy (425.4) (I42.9) CHF NYHA class III (428.0) (I50.9) Chronic systolic congestive heart failure (428.22,428.0) (I50.22) CKD (chronic kidney disease) (585.9) (N18.9) Complete heart block (426.0) (I44.2) Dyspnea on exertion (786.09) (R06.00) Essential hypertension (401.9) (I10) Former smoker (V15.82) (Z87.891) Goals of care, counseling/discussion (V65.49) (Z71.89) Heart failure (428.9) (I50.9) History of orthopnea (V15.89) (Z87.898) HTN (hypertension) (401.9) (I10) Hypothyroid (244.9) (E03.9) Irregular heart beat (427.9) (I49.9) LBBB (left bundle branch block) (426.3) (I44.7) Lightheadedness (780.4) (R42) Nonischemic cardiomyopathy (425.4) (I42.8) NSVT (nonsustained ventricular tachycardia) (427.1) (I47.2) NYHA class 3 heart failure with reduced ejection fraction (428.9) (I50.20) Overweight (278.02) (E66.3) Palliative care encounter (V66.7) (Z51.5) Pulmonary hypertension (416.8) (I27.20) Sinus node dysfunction (427.81) (I49.5) Stage 3 chronic kidney disease (585.3) (N18.30) Mitral regurgitation (424.0) (I34.0) - severe, echo 12/2019 Tricuspid regurgitation (397.0) (I07.1) - severe, echo December 2019 Aortic stenosis, severe (424.1) (I35.0) Surgical History Problems History of Appendectomy History of Cardiac catheterization History of Cardioverter defibrillator insertion Bivent ICD placed 01/2020 History of Cardioverter defibrillator removal History of Cholecystectomy History of Complete colonoscopy History of Pacemaker insertion History of Tonsillectomy with adenoidectomy Current Meds Medication NameInstruction Carvedilol 12.5 MG Oral TabletTAKE 1 1/2 TABLETS TWICE DAILY Digoxin 125 MCG Oral TabletTAKE 1 TABLET BY MOUTH DAILY Entresto 97-103 MG Oral TabletTake 1 tablet twice daily Furosemide 40 MG Oral TabletTAKE 1 TABLET DAILY. Levothyroxine Sodium 200 MCG Oral TabletTAKE 1 TABLET DAILY. Magnesium Oxide 400 (241.3 Mg) MG TABSTAKE 1 TABLET BY MOUTH DAILY Multivitamin Plus Iron Adult Oral TabletTAKE 1 TABLET ONCE DAILY. Nitroglycerin 0.4 MG Sublingual Tablet SublingualPLACE 1 TABLET UNDER THE TONGUE EVERY 5 MINUTES FOR UP TO 3 DOSES NEEDED FOR CHEST PAIN.CALL 911 IF PAIN PERSISTS. Spironolactone 25 MG Oral Tablettake 1/2 tablet daily traMADol HCl - 50 MG Oral TabletTAKE 1 TABLET BY MOUTH TWICE DAILY NEEDED FOR PAIN Vitamin D CAPSTAKE 1 CAPSULE Daily Allergies Medication No Known Drug Allergies Recorded By: Michela Laguna; 05/17/2020 11:23:30 AM Family History Mother Family history of c (more content not included)... Normal [employer] Transesophageal Echoon 08-21 Transesophageal Echo [facility] enter, [address] [place] [address] and TRANSESOPHAGEAL ECHOCARDIOGRAM REPORT Patient Name: CORKY Emerson Physician: [id number] Rupali DUENAS Study Date: 08/21/2021 Referring RODRIGO FROST Physician: MRN/PID: [id number] PCP: Accession/Order#: [id number] [facility]VI Non Location: Invasive Date of : 1950 Fellow: [id number] Hardik Valerio MD Gender: M Nurse: Verónica Nguyen RN Admission Status: Outpatient Additional Staff: Kelly Santoro RN Height: 167.64 cm CC Report to: Weight: 67.13 kg Study Type: Transesophageal Echo BSA: 1.76 m2 Blood Pressure: 101 /73 mmHg Diagnosis/ICD: I05.9-Mitral valve disorder Indication: Mitral regurgitation Procedure/CPT: LUCAS Complete-85802; Color Doppler-79460; Doppler Full-66573 Patient History: Drug Allergies: None Pacer/Defib: Permanent pacemaker Pertinent History: CKD, hypothyroid, pulmonary HTN, JOSEPH, orthopnea, MR/TR/, NSVT, LBBB, TECHNICAL APPLICATIONS SPECIALIST-D, NICM, CHB, HTN. Study Detail: PHYSICIAN INTERPRETATION: LUCAS Details: Technically adequate omniplane transesophageal echocardiogram performed. Agitated saline contrast echo was performed to assess for the presence of a patent foramen ovale. LUCAS Medication: The pharynx was anesthetized with viscous lidocaine and topex spray. The patient was sedated by Anesthesia; please refer to anesthesia flow sheet for medications used. LUCAS Procedure: The probe was passed without difficulty. The patient tolerated the procedure well without any apparent complications. Left Ventricle: The left ventricular systolic function is severely decreased, with an estimated ejection fraction of 15-20%. There is global hypokinesis of the left ventricle with minor regional variations. The left ventricular cavity size is normal. Left ventricular diastolic filling was not assessed. Left Atrium: The left atrium is moderately dilated. There is no definite left atrial thrombus present. A bubble study using agitated saline was performed. Bubble study is negative. There is no thrombus visualized in the left atrial appendage and the left atrial appendage Doppler velocities are normal. Right Ventricle: The right ventricle is mildly enlarged. There is mildly reduced right ventricular systolic function. A device is visualized in the right ventricle. Right Atrium: The right atrium is mildly dilated. There is a device visualized in the right atrium. Aortic Valve: The aortic valve is trileaflet. There is mild aortic valve thickening. There is trivial aortic valve regurgitation. Mitral Valve: The mitral valve is mildly thickened. There is moderately decreased anterior and posterior mitral valve leaflet mobility. There is severe mitral valve regurgitation which is centrally directed. Minimally thickened MV leaflets with relatively restricted leaflet closure causing severe ( 3-4+ vs 4+) centrally directed MR with systolic flow reversal in the pulmonary veins and EROA of 0.35cm2. Leaflets appear slightly furled. Tricuspid Valve: The tricuspid valve is structurally normal. There is severe tricuspid regurgitation. Pulmonic Valve: The pulmonic valve was not assessed. The pulmonic valve regurgitation was not assessed. Pericardium: There is a trivial pericardial effusion. Aorta: The aortic root is normal. In comparison to the previous echocardiogram(s): Compared with the prior exam , TTE from 07/18/2021 ([facility]) the LV systolic function was severely reduced ( reported LVEF 20-25%) and there was moderate to severe MR. The LV leaflets were better visualized today. In addition there was alreaedy severe TR. CONCLUSIONS: 1. The left ventricular systolic function is severely decreased with a 15-20% estimated ejection fraction. 2. The left atrium is moderately dilated. 3. Minimally thickened MV leaflets with relatively restricted leaflet closure causing severe ( 3-4+ vs 4+) centrally directed MR with systolic flow reversal in the pulmonary veins and EROA of 0.35cm2. Leaflets appear slightly furled. 4. There is severe tricuspid regurgitation. 5. No left atrial thrombus. 6. Compared with the prior exam , TTE from 07/18/2021 ([facility]) the LV systolic function was severely reduced ( reported LVEF 20-25%) and there was moderate to severe MR. The LV leaflets were better visualized today. In addition there was alreaedy severe TR. 7. There is global hypokinesis of the left ventricle with minor regional variations. QUANTITATIVE DATA SUMMARY: [id number] Rupali Allred MD Electronically signed on 08/21/2021 at 3:40:01 PM Final Normal [facility] COVID-19 FRon 08-19-2021 SARS-CoV-2 (COVID-19) RNA LACY+probe Ql (Unsp spec) Negative Normal Negative [facility] Comment on above: Order Comment: Healt hcare Worker?: N Result Comment: Testing for SARS-CoV-2 by RT-PCR This test was developed and its performance characteristics determined by [employer] ([facility]) and validated at the [facility]. This test has not been FDA cleared or approved. This test has been authorized by FDA under an Emergency Use Authorization (EUA). This test has been validated in accordance with the FDA's Guidance Document (Policy for Diagnostics Testing in Laboratories Certified to Perform High Complexity Testing under CLIA prior to Emergency Use Authorization for Coronavirus Disease-2019 during the Public Health Emergency) issued on July 07, 2019. This test is only authorized for the duration of time the declaration that circumstances exist justifying the authorization of the emergency use of in vitro diagnostic tests for detection of SARS-CoV-2 virus and/or diagnosis of COVID-19 infection under section 564(b)(1) of the Act, 21 U.S.C. 360bbb-3(b)(1), unless the authorization is terminated or revoked sooner. PERFORMED BY: [place] [address] PATHOLOGIST GEOLOGICAL TECHNICIAN BAY THRASHER M.D. Performed By: #### C OVID 19 [facility] #### [address] COVID-19 Positive/NegativeOr dered By: Cristobal Garcia on 08-19-2021 SARS-CoV-2 (COVID-19) N gene LACY+probe Ql (Resp) Negative Negative [facility] Comment on above: Testing for SARS-CoV -2 by RT-PCR This test was developed and its performance characteristics determined by [employer] ([facility]) and validated at the [facility]. This test has not been FDA cleared or approved. This test has been authorized by FDA under an Emergency Use Authorization (EUA). This test has been validated in accordance with the FDA's Guidance Document (Policy for Diagnostics Testing in Laboratories Certified to Perform High Complexity Testing under CLIA prior to Emergency Use Authorization for Coronavirus Disease-2019 during the Public Health Emergency) issued on July 07, 2019. This test is only authorized for the duration of time the declaration that circumstances exist justifying the authorization of the emergency use of in vitro diagnostic tests for detection of SARS-CoV-2 virus and/or diagnosis of COVID-19 infection under section 564(b)(1) of the Act, 21 U.S.C. 360bbb-3(b)(1), unless the authorization is terminated or revoked sooner. Office Visit (Cardiology)on 08-13-2021 Follow-up visit Diagnoses/Problems Assessed Sinus node dysfunction (427.81) (I49.5) NSVT (nonsustained ventricular tachycardia) (427.1) (I47.2) LBBB (left bundle branch block) (426.3) (I44.7) Complete heart block (426.0) (I44.2) Biventricular ICD (implantable cardioverter-defibrillato r) in place (V45.02) (Z95.810) CHF NYHA class III (428.0) (I50.9) BMI 24.0-24.9, adult (V85.1) (Z68.24) Former smoker (V15.82) (Z87.891) Orders ACC/AHA stage D heart failure Renew: Carvedilol 12.5 MG Oral Tablet; TAKE 1 1/2 TABLETS TWICE DAILY Health Maintenance Avoid alcoholic beverages.; Status:Complete - Retrospective Authorization; Done: 13Aug2021 Avoid foods and beverages that contain caffeine.; Status:Complete - Retrospective Authorization; Done: 13Aug2021 Diets that are low in carbohydrates and high in protein are very popular for weight loss.; Status:Complete - Retrospective Authorization; Done: [id number] Eat a low fat and low cholesterol diet.; Status:Complete - Retrospective Authorization; Done: [id number] Losing just 5 to 10 pounds may lower your risk of health problems.; Status:Complete - Retrospective Authorization; Done: 13Aug2021 Please bring all medicines, vitamins, and herbal supplements with you when you come to the office.; Status:Complete - Retrospective Authorization; Done: 13Aug2021 Restrict the salt in your diet by avoiding highly salted foods.; Status:Complete - Retrospective Authorization; Done: 13Aug2021 There are many exercise options for seniors.; Status:Complete - Retrospective Authorization; Done: 13Aug2021 SocHx: Former smoker Tobacco Use Screening; Status:Complete; Done: 13Aug2021 Patient Instructions Follow up with Lynne Encinas in 6 months and 1 year with a device check. By signing my name below, I, Ania Miguel CMA,Scribe, attest that this documentation has been prepared under the direction and in the presence of Dr. Mera Batista MD, FACC, FACP, RS. No list or bottles for comparison, patient or family member to call with any updates [phone] Patient provided Falls Prevention education sheet. The provider reviewed the following test(s) and result(s) with the patient: ECG Chief Complaint Patient is here today for a scheduled follow up Adult Risk Screening Initial Fall Risk Screening: CORKY has fallen in the last 6 months. Tobacco Screening: CORKY does not use tobacco. Blood Pressure monitoring Blood Pressure Controlled, Systolic <130 mm Hg Blood Pressure Controlled, Diastolic < 80mm Hg History of Present Illness He is here for electrophysiology evaluation The patient and mother 1 are here to discuss heart failure device. He has no specific arrhythmia symptoms. The patient denies any lightheadedness, near syncope, syncope, palpitation, chest discomfort, orthopnea, PND, or edema. He has dyspnea with mild to moderate exertion, and this is stable. Overall, he feels good after his biv device implant. The device site is well-healed and unchanged. The patient denies any redness, swelling, or drainage See ROS, PMH, FMH, and surgical history for details. Personal review of ECG and cardiac data reviewed since 2019. Outside records: OV with HF service May 2021 EP OV Jul 2020 ECG Jul [address] Mitchell May [address] Mitchell February 2020 Device Check: May 2020 ECG: Today. Sinus tachycardia. Appropriate sensing and pacing. RAD> Corrected QT interval over 500 ms (paced) Device check. Today:. [facility] HF A500 Q-device. 97% biventricular pacing. Less than 1% A. fib. Brief NSVT up to 200 bpm Imp / Plan Recurrent VT. Increase carvedilol. See orders. Prescription sent Nonischemic cardiomyopathy, left bundle branch block, sinus bradycardia, and intermittent high-grade AV block/complete heart block status post biventricular defibrillator 2019. Chronic. Stable. [facility] CD HF A5 BiV ICD. Stable. Chronic. Reviewed device check. Normal device function. Order device check. Alternate remote check with device clinic paired with EP office visit. Personally paired pt?s device with [employer] pulse nabeel; troubleshooting of nabeel performed and called [employer] support for 20 minutes troubleshooting Normal cors by catheterization. Ejection fraction 30% by myocardial perfusion scanning 2019. LVEF20% by echo 2020. [employer] 3C heart failure. Chronic. Stable. Reviewed medications. Increase beta-krystle as noted given recurrent VT. Nonsustained ventricular tachycardia. Recurrent. Stable. Chronic. Reviewed medications and device check. Increase carvedilol and continue magnesium oxide. Prescription sent. Hypothyroidism. Stable. Chronic. Reviewed medications. On replacement therapy Chronic left bundle branch block Valvular heart disease with severe mitral regurgitation by echocardiogram Dec 2019. Pulmonary hypertension. Chronic. Stable. Hypertension benign, chronic, controlled. Stable. Reviewed medications. Increase beta-block (more content not included)... Normal [email or web address] Tobacco Screening.on 022 Fall risk assessment b) One or more fall s in the last year [facility] DO Work Phone: Tobacco use status CP b) No [facility] DO Work Phone: Tobacco Screening. Yes [facility] DO Work Phone: Transesophageal Echoon 08-02 Transesophageal Echo Please click on the link to view the study images Normal [facility] DO Work Phone: COVID-19 FRMCon 07-31-2021 SARS-CoV-2 (COVID-19) RNA LACY+probe Ql (Unsp spec) Negative Normal Negative [facility] Comment on above: Order Comment: Healt hcare Worker?: N Result Comment: Testing for SARS-CoV-2 by RT-PCR This test was developed and its performance characteristics determined by [employer] ([facility]) and validated at the [facility]. This test has not been FDA cleared or approved. This test has been authorized by FDA under an Emergency Use Authorization (EUA). This test has been validated in accordance with the FDA's Guidance Document (Policy for Diagnostics Testing in Laboratories Certified to Perform High Complexity Testing under CLIA prior to Emergency Use Authorization for Coronavirus Disease-2019 during the Public Health Emergency) issued on July 07, 2019. This test is only authorized for the duration of time the declaration that circumstances exist justifying the authorization of the emergency use of in vitro diagnostic tests for detection of SARS-CoV-2 virus and/or diagnosis of COVID-19 infection under section 564(b)(1) of the Act, 21 U.S.C. 360bbb-3(b)(1), unless the authorization is terminated or revoked sooner. PERFORMED BY: [facility] [address] [place] [address] PATHOLOGIST GEOLOGICAL TECHNICIAN BAY THRASHER M.D. Performed By: #### C OVID 19 [facility] ####[facility] [place] [address] [facility] COVID-19 Positive/NegativeOr dered By: Cristobal Garcia on 07-31-2021 SARS-CoV-2 (COVID-19) N gene LACY+probe Ql (Resp) Negative Negative [facility] Comment on above: Testing for SARS-CoV -2 by RT-PCRThis test was developed and its performance characteristics determined by [employer] ([place]) and validated at the [facility]. This test has not been FDA cleared or approved. This test has been authorized by FDA under an Emergency Use Authorization (EUA). This test has been validated in accordance with the FDA's Guidance Document (Policy for Diagnostics Testing in Laboratories Certified to Perform High Complexity Testing under CLIA prior to Emergency Use Authorization for Coronavirus Disease-2019 during the Public Health Emergency) issued on July 07, 2019. This test is only authorized for the duration of time the declaration that circumstances exist justifying the authorization of the emergency use of in vitro diagnostic tests for detection of SARS-CoV-2 virus and/or diagnosis of COVID-19 infection under section 564(b)(1) of the Act, 21 U.S.C. 360bbb-3(b)(1), unless the authorization is terminated or revoked sooner. Testing for SARS-CoV -2 by RT-PCR This test was developed and its performance characteristics determined by [employer] ([facility]) and validated at the [facility]. This test has not been FDA cleared or approved. This test has been authorized by FDA under an Emergency Use Authorization (EUA). This test has been validated in accordance with the FDA's Guidance Document (Policy for Diagnostics Testing in Laboratories Certified to Perform High Complexity Testing under CLIA prior to Emergency Use Authorization for Coronavirus Disease-2019 during the Public Health Emergency) issued on July 07, 2019. This test is only authorized for the duration of time the declaration that circumstances exist justifying the authorization of the emergency use of in vitro diagnostic tests for detection of SARS-CoV-2 virus and/or diagnosis of COVID-19 infection under section 564(b)(1) of the Act, 21 U.S.C. 360bbb-3(b)(1), unless the authorization is terminated or revoked sooner. Office Visit (Cardiology)on 06-21-2021 Follow-up visit Diagnoses/Problems Assessed Irregular heart beat (427.9) (I49.9) Orders Irregular heart beat Electrocardiogram EKG; Status:Hold For - Scheduling; Requested for:21Jun2021; Patient Instructions We will review blood work from [place] and call you with any abnormal results. Continue current medications as ordered. Follow up with Device Clinic AND Dr. Batista as scheduled. Call [phone] to schedule follow up with Dr. Canchola in 4 months. Counseling The patient was counseled regarding diagnostic results, instructions for management, patient and family education, impressions, risks and benefits of treatment options and importance of compliance with treatment. Chief Complaint CORKY DUENAS is being seen for a 1 month follow-up of heart failure. Adult Risk Screening Initial Fall Risk Screening: CORKY has not fallen in the last 6 months. His fall did not result in injury. CORKY does not have a fear of falling. He does not need assistance with sitting, standing or walking. Does not need assistance walking in his home. He does not need assistance in an unfamiliar setting. The patient is not using an assistive device. History of Present Illness [address] Canchola here for 1 month follow up for heart failure. Last visit 05/20/21, increased Entresto 97-103mg BID. Order for RFP/BNP/Dig. PMHx: HFrEF (LVEF 20%) s/p TECHNICAL APPLICATIONS SPECIALIST-D 01/2020 ([facility])/ NICM/ valvular dx (severe MR, mod to severe TR) / HTN, CHB, NSVT, pulm HTN, HLD, hypothyroid, CKD Social Hx: Former smoker, quit 1989. Quit EToH abuse >30years. Denies illicit drug use. Family Hx: Denies CV hx. Endorses chest pain last night while laying down. Diaphoretic w/LUE numbness and nausea. Lasted about 7 minutes. No relief with Nitro SL x1. Endorses palpitations at night when trying to sleep. SOB on exertion w/ambulating 4 blocks, resolves with rest. Orthopnea w/ 2 pillows. Denies PND. Denies shocks from device. Endorses lightheadedness. Denies dizziness and syncope. Denies BLE edema. Home BP 130s/80s. HR 80s. Weight stable 145lbs. Decreased appetite w/intermittent nausea. Eating one meal/day. Medication compliant. The patient presents with non-ischemic heart failure. The patient's last LV ejection fraction was 20%. The patient is NYHA functional Class IV. This is stage D heart failure. Symptoms: denies lower extremity edema, stable dyspnea on exertion, stable fatigue, stable exercise intolerance, stable orthopnea and denies paroxysmal nocturnal dyspnea. Associated symptoms include chest pain and palpitations, but no syncope, no recent weight gain and no recent weight loss. Home Monitoring: The patient checks his weight regularly. Weight control has been good. Medications: the patient is adherent with his medication regimen. He denies medication side effects. Active Problems Problems ACC/AHA stage D heart failure (428.9) (I50.84) Aortic stenosis, severe (424.1) (I35.0) Biventricular ICD (implantable cardioverter-defibrillato r) in place (V45.02) (Z95.810) BMI 24.0-24.9, adult (V85.1) (Z68.24) Cardiomyopathy (425.4) (I42.9) CHF NYHA class III (428.0) (I50.9) Chronic systolic congestive heart failure (428.22,428.0) (I50.22) CKD (chronic kidney disease) (585.9) (N18.9) Complete heart block (426.0) (I44.2) Dyspnea on exertion (786.09) (R06.00) Essential hypertension (401.9) (I10) Goals of care, counseling/discussion (V65.49) (Z71.89) Heart failure (428.9) (I50.9) History of orthopnea (V15.89) (Z87.898) HTN (hypertension) (401.9) (I10) Hypothyroid (244.9) (E03.9) LBBB (left bundle branch block) (426.3) (I44.7) Lightheadedness (780.4) (R42) Mitral regurgitation (424.0) (I34.0) severe, echo 12/2019 Nonischemic cardiomyopathy (425.4) (I42.8) NSVT (nonsustained ventricular tachycardia) (427.1) (I47.2) NYHA class 3 heart failure with reduced ejection fraction (428.9) (I50.20) Overweight (278.02) (E66.3) Palliative care encounter (V66.7) (Z51.5) Pulmonary hypertension (416.8) (I27.20) Sinus node dysfunction (427.81) (I49.5) Stage 3 chronic kidney disease (585.3) (N18.30) Tricuspid regurgitation (397.0) (I07.1) severe, echo December 2019 Surgical History Problems History of Appendectomy History of Cardiac catheterization History of Cardioverter defibrillator insertion Bivent ICD placed 01/2020 History of Cardioverter defibrillator removal History of Cholecystectomy History of Complete colonoscopy History of Pacemaker insertion History of Tonsillectomy with adenoidectomy Current Meds Medication NameInstruction Carvedilol 12.5 MG Oral TabletTake 1 tablet twice daily Digoxin 125 MCG Oral TabletTAKE 1 TABLET BY MOUTH DAILY Entresto 97-103 MG Oral TabletTake 1 tablet twice daily Furosemide 40 MG Oral TabletTAKE 1 TABLET DAILY DIRECTED. Levothyroxine Sodium 200 MCG Oral TabletTAKE 1 TABLET DAILY. Magnesium Oxide 400 (241.3 Mg) MG Oral TabletTAKE 1 TABLET BY MOUTH DAILY Multivitamin Plus Iron Adult Oral Tablet (more content not included)... Normal [employer] Tobacco Screening.on Adult depression screening assessment No [facility] [address] [place] Work Phone: Fall risk assessment a) No falls within the last year [facility] [address] [place] Work Phone: Tobacco use status CPHS b) No [facility] [address] [place] Work Phone: Office Visit (Cardiology)on 05-20-2021 Follow-up visit Diagnoses/Problems Assessed Chronic systolic congestive heart failure (428.22,428.0) (I50.22) Nonischemic cardiomyopathy (425.4) (I42.8) Mitral regurgitation (424.0) (I34.0) severe, echo 12/2019 Orders ACC/AHA stage D heart failure Renew: Entresto 97-103 MG Oral Tablet; Take 1 tablet twice daily Chronic systolic congestive heart failure Brain Natriuretic Peptide BNP; Status:Active; Requested for:[id number]; Digoxin Level, Serum; Status:Active; Requested for:[id number]; Renal Function Panel; Status:Active; Requested for:[id number]; Patient Instructions To reach Dr. Canchola' office please call [phone] (Funmilayo). . Call [phone] to schedule an appointment. You may also contact the HF RNs at . 1) Increase entresto to 97/103 mg twice a day 2) Labs (RFP/BNP/dig level) 3) Follow up in 1 month at /[facility] with Kelly Ruth Pharmacy: Evelyn Clemons IN Chief Complaint CORKY DUENAS is being seen for a 6 month follow-up of cardiomyopathy, heart failure and a routine medication evaluation. History of Present Illness Referring providers: Structural Heart Team Gen emergency medical dispatcher: Stephen ([facility]) EP: Lynne ([facility]) Mr. Duenas is a 70 y/o M with a PMHx sig for stage C/D systolic HF/NICM/HFrEF with severe LV dysfunction (LVEF 20-25%) s/p TECHNICAL APPLICATIONS SPECIALIST-D with associated functional mitral regurgitation, hypothyroidism, and CKD who returns to the Advanced Heart Failure clinic for ongoing evaluation and management of his cardiomyopathy. Interval hx: Currently has chest pain. He rates it a 3/10. He said he has this twice a week. This will last 15-20 minutes and will resolve on its own. Patient has occasional palpitations, complaints of shortness of breath, dyspnea on exertion. Patient denies orthopnea, positive PND. No edema noted in BLE. Patient denies headaches. Patient has occasional dizziness. Denies recent falls. Denies hospitalizations. Had one ED visit for dizziness a few weeks. He went to [facility]. Reports full adherence to low sodium diet at home TECHNICAL APPLICATIONS SPECIALIST-D was placed January [address] Mera Batista PMHx: stage C/D systolic HF/NICM/HFrEF with severe LV dysfunction (LVEF 20-25%) s/p TECHNICAL APPLICATIONS SPECIALIST-D with associated functional mitral regurgitation, hypothyroidism, CKD SocHx: Lives in [place], [place] with mother (in her 80s), he is but remains in contact with his ex- and ex-brother in law. Two brothers also live with him and his mom. No pets. 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 Tobacco: Quit 20-25 years ago, former cigarette smoker 2PPD x 8 years EToH: Endorses heavy alcohol use in his younger years for about 10 years, quit due to desire for lifestyle change Recreationals: Denies past or current use, is exposed to marijuana by his brothers who live with him FamHx: Most notable history for cancer. Denies other family history of CAD, KS, CHF, OHS, MCS or OHT Mother: DM, CKD Father: ?CVA, from brain cancer in his 40's Active Problems Problems ACC/AHA stage D heart failure (428.9) (I50.84) Aortic stenosis, severe (424.1) (I35.0) Biventricular ICD (implantable cardioverter-defibrillato r) in place (V45.02) (Z95.810) BMI 24.0-24.9, adult (V85.1) (Z68.24) Cardiomyopathy (425.4) (I42.9) CHF NYHA class III (428.0) (I50.9) Chronic systolic congestive heart failure (428.22,428.0) (I50.22) CKD (chronic kidney disease) (585.9) (N18.9) Complete heart block (426.0) (I44.2) Dyspnea on exertion (786.09) (R06.00) Essential hypertension (401.9) (I10) Goals of care, counseling/discussion (V65.49) (Z71.89) Heart failure (428.9) (I50.9) History of orthopnea (V15.89) (Z87.898) HTN (hypertension) (401.9) (I10) Hypothyroid (244.9) (E03.9) LBBB (left bundle branch block) (426.3) (I44.7) Lightheadedness (780.4) (R42) Mitral regurgitation (424.0) (I34.0) severe, echo 12/2019 Nonischemic cardiomyopathy (425.4) (I42.8) NSVT (nonsustained ventricular tachycardia) (427.1) (I47.2) NYHA class 3 heart failure with reduced ejection fraction (428.9) (I50.20) Overweight (278.02) (E66.3) Palliative care encounter (V66.7) (Z51.5) Pulmonary hypertension (416.8) (I27.20) Sinus node dysfunction (427.81) (I49.5) Stage 3 chronic kidney disease (585.3) (N18.30) Tricuspid regurgitation (397.0) (I07.1) severe, echo December 2019 Surgical History Problems History of Appendectomy History of Cardiac catheterization History of Cardioverter defibrillator insertion Bivent ICD placed 01/2020 History of Cardioverter defibrillator removal History of Cholecystectomy History of Complete colonoscopy History of Pacemaker insertion History of Tonsillectomy with adenoidectomy Current Meds Medication NameInstruction Carvedilol 12.5 MG Oral TabletTake 1 tablet twice daily Digoxin 125 MCG Oral TabletTAKE 1 TABLET BY MOUTH DAILY Entresto 49-51 MG Oral TabletTake 1 tablet twice daily Fur (more content not included)... Normal [employer] Tobacco Screening.on 022 Fall risk assessment a) No falls within the last year [facility] [address] [place] Work Phone: Tobacco use status CPHS b) No [facility] [address] [place] Work Phone: Office Visit (Cardiology)on 11-12-2020 Follow-up visit Diagnoses/Problems Assessed ACC/AHA stage D heart failure (428.9) (I50.84) Mitral regurgitation (424.0) (I34.0) Nonischemic cardiomyopathy (425.4) (I42.8) Patient Instructions To reach Dr. Canchola' office please call [phone] (Funmilayo). . Call [phone] to schedule an appointment. You may also contact the HF RNs at . 1) Increase carvedilol to 12.5 mg twice a day 2) Follow up in 6 months at /[facility] Pharmacy: Evelyn Clemons IN Chief Complaint CORKY DUENAS is being seen for follow-up of a hospitalization for cardiomyopathy, heart failure and a routine medication evaluation. History of Present Illness Referring providers: Structural Heart Team Gen emergency medical dispatcher: [facility] EP: Lynne ([facility]) Mr. Duenas is a 70 y/o M with a PMHx sig for stage D systolic HF/NICM/HFrEF with severe LV dysfunction (LVEF 20-25%) s/p TECHNICAL APPLICATIONS SPECIALIST-D with associated functional mitral regurgitation, hypothyroidism, and CKD who returns to the Advanced Heart Failure clinic for ongoing evaluation and management of his cardiomyopathy. Interval hx: Has good days and bad days. Continues to have frequent chest pain unrelieved with nitro. JOSEPH with activity which has been stable. able to walk 1 block before needing to rest. Denies palpitations. 3 pillow orthopnea. Reports 2 nights per week with PND. Wakes up in the middle of the night with chest pain, able to go back to sleep. Denies lower extremity edema, N/V/D. Lightheadedness sometimes with walking but hasn't impacted his activities. Has been trying to walk 1 block every day for exercise Admitted in June for ADHF and evaluation of advanced therapies- not a candidate Reports full adherence to low sodium diet at home Checking weight most days, weights have been around 136lbs. TECHNICAL APPLICATIONS SPECIALIST-D was placed January [address] Mera Batista PMHx: stage D systolic HF/NICM/HFrEF with severe LV dysfunction (LVEF 20-25%) s/p TECHNICAL APPLICATIONS SPECIALIST-D with associated functional mitral regurgitation, hypothyroidism, CKD SocHx: Lives in [place], [place] with mother (in her 80s), he is but remains in contact with his ex- and ex-brother in law. Two brothers also live with him and his mom. No pets. 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 Tobacco: Quit 20-25 years ago, former cigarette smoker 2PPD x 8 years EToH: Endorses heavy alcohol use in his younger years for about 10 years, quit due to desire for lifestyle change Recreationals: Denies past or current use, is exposed to marijuana by his brothers who live with him FamHx: Most notable history for cancer. Denies other family history of CAD, KS, CHF, OHS, MCS or OHT Mother: DM, CKD Father: ?CVA, from brain cancer in his 40's Active Problems Problems ACC/AHA stage D heart failure (428.9) (I50.84) Cardiomyopathy (425.4) (I42.9) CKD (chronic kidney disease) (585.9) (N18.9) Complete heart block (426.0) (I44.2) Dyspnea on exertion (786.09) (R06.00) Goals of care, counseling/discussion (V65.49) (Z71.89) Heart failure (428.9) (I50.9) History of orthopnea (V15.89) (Z87.898) HTN (hypertension) (401.9) (I10) Hypothyroid (244.9) (E03.9) Lightheadedness (780.4) (R42) Mitral regurgitation (424.0) (I34.0) Nonischemic cardiomyopathy (425.4) (I42.8) NSVT (nonsustained ventricular tachycardia) (427.1) (I47.2) NYHA class 3 heart failure with reduced ejection fraction (428.9) (I50.20) Palliative care encounter (V66.7) (Z51.5) Pulmonary hypertension (416.8) (I27.20) Tricuspid regurgitation (397.0) (I07.1) Surgical History Problems History of Appendectomy History of Cardioverter defibrillator insertion Bivent ICD placed 01/2020 History of Cholecystectomy History of Tonsillectomy with adenoidectomy Current Meds Medication NameInstruction Carvedilol 6.25 MG Oral TabletTake 1 tablet twice daily Digoxin 125 MCG Oral TabletTAKE 1 TABLET BY MOUTH DAILY Entresto 49-51 MG Oral TabletTake 1 tablet twice daily Furosemide 40 MG Oral TabletTAKE 1 TABLET DAILY DIRECTED. Levothyroxine Sodium 200 MCG Oral TabletTAKE 1 TABLET DAILY. Magnesium Oxide 400 (241.3 Mg) MG Oral TabletTAKE 1 TABLET BY MOUTH DAILY Multivitamin Plus Iron Adult Oral Tablet Spironolactone 25 MG Oral Tablettake 1/2 tablet daily traMADol HCl - 50 MG Oral TabletTAKE 1 TABLET BY MOUTH TWICE DAILY NEEDED FOR PAIN Allergies Medication No Known Drug Allergies Recorded By: Michela Laguna; 05/17/2020 11:23:30 AM Review of Systems Constitutional: not feeling tired. Cardiovascular: no intermittent leg claudication and as noted in HPI. Respiratory: no cough and no shortness of breath. Gastrointestinal: no change in bowel habits, no blood in stools, no nausea and no vomiting. Musculoskeletal: no limb swelling. Integumentary: no skin rashes. Neurological: no seizures and no frequent falls. All other systems have been reviewed and are negative for (more content not included)... Normal [employer] Laboratory - Hematology and Cell countson 10-08-2020 Erythrocyte distribution width (RBC) [Ratio] 14.0 % See Below [facility] Work Phone: Comment on above: Reference Range: 11. 5 - 14.5 Hematocrit (Bld) [Volume fraction] 47.7 % See Below [facility] Work Phone: Comment on above: Reference Range: 41. 0 - 52.0 Hemoglobin (Bld) [Mass/Vol] 16.1 g/dL See Below [facility] Alex [facility] Work Phone: Comment on above: Reference Range: 13. 5 - 17.5 MCHC (RBC) [Mass/Vol] 33.8 g/dL See Below [facility] Alex [facility] Work Phone: Comment on above: Reference Range: 32. 0 - 36.0 MCV (RBC) [Entitic vol] 96 fL 80 - 100 [facility] Alex [facility] Work Phone: Platelets (Bld) [#/Vol] 226 10*3/uL 150 - 450 [facility] -González Adams Work Phone: RBC (Bld) [#/Vol] 4.96 {x10E12/L} See Below [facility] Alex Adams Work Phone: Comment on above: Reference Range: 4.5 0 - 5.90 WBC (Bld) [#/Vol] 7.6 10*3/uL 4.4 - 11.3 MG-Med icine -González Adams Work Phone: Magnesium, Serumon 1 Magnesium [Mass/Vol] 2.17 mg/dL See Below MG-M edicine Alex Adams Work Phone: Comment on above: Reference Range: 1.6 0 - 2.40 No Panel Informationon 10-08 0.0 {/100_WBC} 0.0-0.0 MG-Medicin e -González [facility] Work Phone: Renal Function Panelon 10-08 Albumin BCP dye [Mass/Vol] 3.6 g/dL 3.4 - 5.0 [facility] -González [facility] Work Phone: Anion gap [Moles/Vol] 14 mmol/L 10 - 20 MG- Bhavesh -González [facility] Work Phone: Calcium [Mass/Vol] 9.0 mg/dL 8.6 - 10.6 [facility] jim Adams Work Phone: Chloride [Moles/Vol] 104 mmol/L 98 - 107 MG-M gabi Adams Work Phone: CO2 [Moles/Vol] 25 mmol/L 21 - 32 [facility] ne Alex [facility] Work Phone: Creatinine [Mass/Vol] 1.22 mg/dL See Below [facility] Alex Adams Work Phone: Comment on above: Reference Range: 0.5 0 - 1.30 Glucose [Mass/Vol] 96 mg/dL 74 - 99 [facility] jim Adams Work Phone: Phosphate [Mass/Vol] 3.6 mg/dL 2.5 - 4.9 MG-M gabi [facility] Work Phone: Comment on above: The performance wilma acteristics of phosphorus testing in heparinized plasma have been validated by the individual laboratory site where testing is performed. Testing on heparinized plasma is not approved by the FDA; however, such approval is not necessary. Potassium [Moles/Vol] 4.0 mmol/L 3.5 - 5.3 MG- Bhavesh [facility] Work Phone: Sodium [Moles/Vol] 139 mmol/L 136 - 145 MG-Raman [facility] Work Phone: Urea nitrogen [Mass/Vol] 30 mg/dL above high threshold 6 - 23 MG-Bhavesh Adams Work Phone: Renal Function Panel 71 {mL/min/1.73m2} >60 [facility] Alex [facility] Work Phone: Comment on above: CALCULATIONS OF AYANA MATED GFR ARE PERFORMED USING THE MDRD STUDY EQUATION FOR THE IDMS-TRACEABLE CREATININE METHODS. CLIN CHEM 2007;53:766-72 Renal Function Panel 59 {mL/min/1.73m2} Abnormal >60 MG-Bhavesh Adams Work Phone: Magnesium, Serumon 07-04-202 1 Magnesium [Mass/Vol] 2.33 mg/dL See Below MG-M gabi Adams Work Phone: Comment on above: Reference Range: 1.6 0 - 2.40 Renal Function Panelon 10-07 Albumin BCP dye [Mass/Vol] 3.6 g/dL 3.4 - 5.0 Bhavesh Adams Work Phone: Anion gap [Moles/Vol] 19 mmol/L 10 - 20 MG Bhavesh Adams Work Phone: Calcium [Mass/Vol] 8.6 mg/dL 8.6 - 10.6 [facility] j[facility] Work Phone: Chloride [Moles/Vol] 105 mmol/L 98 - 107 MG- gabi Adams Work Phone: CO2 [Moles/Vol] 16 mmol/L below low threshold 21 - 32 MGBhavesh Adams Work Phone: Creatinine [Mass/Vol] 1.37 mg/dL above high threshold See Below Pedro Adams Work Phone: Comment on above: Reference Range: 0.5 0 - 1.30 Glucose [Mass/Vol] 95 mg/dL 74 - 99 MGTj Adams Work Phone: Phosphate [Mass/Vol] 3.8 mg/dL 2.5 - 4.9 MG- gabi Adams Work Phone: Comment on above: The performance wilma acteristics of phosphorus testing in heparinized plasma have been validated by the individual laboratory site where testing is performed. Testing on heparinized plasma is not approved by the FDA; however, such approval is not necessary. Potassium [Moles/Vol] 4.3 mmol/L 3.5 - 5.3 MG- Bhavesh Adams Work Phone: Sodium [Moles/Vol] 136 mmol/L 136 - 145 MG-Raman Adams Work Phone: Urea nitrogen [Mass/Vol] 31 mg/dL above high threshold 6 - 23 [facility] Alex [facility] Work Phone: Renal Function Panel 63 {mL/min/1.73m2} >60 [facility] Alex [facility] Work Phone: Comment on above: CALCULATIONS OF AYANA MATED GFR ARE PERFORMED USING THE MDRD STUDY EQUATION FOR THE IDMS-TRACEABLE CREATININE METHODS. CLIN CHEM 2007;53:766-72 Renal Function Panel 52 {mL/min/1.73m2} Abnormal >60 [facility] Alex Adams Work Phone: Albumin BCP dye [Mass/Vol] 3.8 g/dL 3.4 - 5.0 MG-Bhavesh Adams Work Phone: Anion gap [Moles/Vol] 13 mmol/L 10 - 20 MG- Bhavesh Adams Work Phone: Calcium [Mass/Vol] 9.1 mg/dL 8.6 - 10.6 MG-Med icine Alex Adams Work Phone: Chloride [Moles/Vol] 104 mmol/L 98 - 107 MG-M edicine Alex Adams Work Phone: CO2 [Moles/Vol] 25 mmol/L 21 - 32 MG-Medici ne Alex Adams Work Phone: Creatinine [Mass/Vol] 1.26 mg/dL See Below MG- Bhavesh Adams Work Phone: Comment on above: Reference Range: 0.5 0 - 1.30 Glucose [Mass/Vol] 139 mg/dL above high threshold 74 - 99 [facility] Alex Adams Work Phone: Phosphate [Mass/Vol] 3.4 mg/dL 2.5 - 4.9 MG-M edicine Alex Adams Work Phone: Comment on above: The performance wilma acteristics of phosphorus testing in heparinized plasma have been validated by the individual laboratory site where testing is performed. Testing on heparinized plasma is not approved by the FDA; however, such approval is not necessary. Potassium [Moles/Vol] 3.8 mmol/L 3.5 - 5.3 ALEXYS Adams Work Phone: Sodium [Moles/Vol] 138 mmol/L 136 - 145 -Raman fernandez -González Adams Work Phone: Urea nitrogen [Mass/Vol] 33 mg/dL above high threshold 6 - 23 MG-Bhavesh Adams Work Phone: Renal Function Panel 69 {mL/min/1.73m2} >60 MG-Bhavesh Adams Work Phone: Comment on above: CALCULATIONS OF AYANA MATED GFR ARE PERFORMED USING THE MDRD STUDY EQUATION FOR THE IDMS-TRACEABLE CREATININE METHODS. CLIN CHEM 2007;53:766-72 Renal Function Panel 57 {mL/min/1.73m2} Abnormal >60 MGJayla Adams Work Phone: Complete Blood Count + Diffe eboni 10-06-2020 Basophils/100 WBC (Bld) 0.5 % 0.0 - 2.0 Pedro Adams Work Phone: Erythrocyte distribution width (RBC) [Ratio] 14.6 % above high threshold See Below -Bhavesh Adams Work Phone: Comment on above: Reference Range: 11. 5 - 14.5 Hematocrit (Bld) [Volume fraction] 49.6 % See Below Pedro Adams Work Phone: Comment on above: Reference Range: 41. 0 - 52.0 Hemoglobin (Bld) [Mass/Vol] 16.9 g/dL See Below -Bhavesh Adams Work Phone: Comment on above: Reference Range: 13. 5 - 17.5 Lymphocytes/100 WBC (Bld) 12.1 % See Below MG-Bhavesh Adams Work Phone: Comment on above: Reference Range: 13. 0 - 44.0 MCHC (RBC) [Mass/Vol] 34.1 g/dL See Below MG- Bhavesh Adams Work Phone: Comment on above: Reference Range: 32. 0 - 36.0 MCV (RBC) [Entitic vol] 99 fL 80 - 100 -Bhavesh Adams Work Phone: Monocytes/100 WBC (Bld) 6.7 % 2.0 - 10.0 -Bhavesh Adams Work Phone: Neutrophils/100 WBC (Bld) 77.8 % See Below Pedro Adams Work Phone: Comment on above: Reference Range: 40. 0 - 80.0 Platelets (Bld) [#/Vol] 240 10*3/uL 150 - 450 -Bhavesh Adams Work Phone: RBC (Bld) [#/Vol] 5.03 {x10E12/L} See Below MG Jayla Adams Work Phone: Comment on above: Reference Range: 4.5 0 - 5.90 WBC (Bld) [#/Vol] 11.1 10*3/uL 4.4 - 11.3 MG-Id dicine Alex Adams Work Phone: Complete Blood Count + Differential 0.05 {x10E9/L} See Below Pedro Adams Work Phone: Comment on above: Reference Range: 0.0 0 - 0.10 Complete Blood Count + Differential 0.26 {x10E9/L} See Below Pedro Adams Work Phone: Comment on above: Reference Range: 0.0 0 - 0.70 Complete Blood Count + Differential 0.74 {x10E9/L} See Below MGJayla Adams Work Phone: Comment on above: Reference Range: 0.1 0 - 1.00 Complete Blood Count + Differential 1.34 {x10E9/L} See Below Pedro Adams Work Phone: Comment on above: Reference Range: 1.2 0 - 4.80 Complete Blood Count + Differential 8.62 {x10E9/L} above high threshold See Below [facility] Work Phone: Comment on above: Reference Range: 1.2 0 - 7.70 Complete Blood Count + Differential 2.3 % 0.0 - 6.0 [facility] Work Phone: Complete Blood Count + Differential 0.6 % 0.0 - 0.9 [facility] Work Phone: Comment on above: Immature Granulocyte Count (IG) includes promyelocytes, myelocytes and metamyelocytes but does not include bands. Percent differential counts (%) should be interpreted in the context of the absolute cell counts (cells/L). Complete Blood Count + Differential 0.0 {/100_WBC} 0.0-0.0 [facility] Work Phone: Digoxin Level, Serumon 10-06 Digoxin [Mass/Vol] 0.96 ng/mL See Below [facility] icine [facility] Work Phone: Comment on above: Reference Range: 0.8 0 - 2.00 Laboratory - Chemistry and C hemistry - challengeon 10-06-2020 Albumin BCP dye [Mass/Vol] 3.7 g/dL 3.4 - 5.0 [facility] Work Phone: ALP [Catalytic activity/Vol] 66 U/L 33 - 136 [facility] Work Phone: ALT With P-5'-P [Catalytic activity/Vol] 12 U/L 10 - 52 [facility] Work Phone: Comment on above: Patients treated wit h Sulfasalazine may generate falsely decreased results for ALT. Anion gap [Moles/Vol] 17 mmol/L 10 - 20 [facility] Work Phone: AST With P-5'-P [Catalytic activity/Vol] 23 U/L 9 - 39 [facility] Work Phone: Comment on above: MILD HEMOLYSIS DETEC MARIANGEL. The result may be falsely elevated due tohemolysis or other interferents. Clinical correlation is recommended.Repeat testing may be considered. Bilirubin [Mass/Vol] 0.8 mg/dL 0.0 - 1.2 MG-M gabi [employer]onz[employer] [facility] Work Phone: Calcium [Mass/Vol] 9.0 mg/dL 8.6 - 10.6 [facility] Anagorose González Adams Work Phone: Chloride [Moles/Vol] 101 mmol/L 98 - 107 MG-M edicine -González Adams Work Phone: CO2 [Moles/Vol] 25 mmol/L 21 - 32 [facility]Medici ne González Vestor Work Phone: Creatinine [Mass/Vol] 1.59 mg/dL above high threshold See Below [facility] Work Phone: Comment on above: Reference Range: 0.5 0 - 1.30 Glucose [Mass/Vol] 94 mg/dL 74 - 99 [facility] Anagorose HaofangtongGonzález Adams Work Phone: Potassium [Moles/Vol] 4.2 mmol/L 3.5 - 5.3 MG- Bhavesh [employer] Work Phone: Comment on above: MILD HEMOLYSIS DETEC MARIANGEL. The result may be falsely elevated due tohemolysis or other interferents. Clinical correlation is recommended.Repeat testing may be considered. Protein [Mass/Vol] 6.5 g/dL 6.4 - 8.2 MG-Med Anagorose HaofangtongGonzález Adams Work Phone: Sodium [Moles/Vol] 139 mmol/L 136 - 145 [facility] Anagorose HaofangtongGonzález Adams Work Phone: TSH Qn 31.13 m[IU]/L above high threshold See Below [facility] HaofangtongGonzález Adams Work Phone: Comment on above: Reference Range: 0.4 4 - 3.98 TSH testing is performed using different testing methodology at [facility] than at other [facility]. Direct result comparisons should only be made within the same method. Urea nitrogen [Mass/Vol] 41 mg/dL above high threshold 6 - 23 [facility] Work Phone: Magnesium, Serumon Magnesium [Mass/Vol] 2.74 mg/dL above high threshold See Below [facility] Work Phone: Comment on above: Reference Range: 1.6 0 - 2.40 No Panel Informationon 10-06 53 {mL/min/1.73m2} Abnormal >60 [facility] jim Adams Work Phone: Comment on above: CALCULATIONS OF AYANA MATED GFR ARE PERFORMED USING THE MDRD STUDY EQUATION FOR THE IDMS-TRACEABLE CREATININE METHODS. CLIN CHEM 2007;53:766-72 44 {mL/min/1.73m2} Abnormal >60 [facility] jim Adams Work Phone: Radiologyon 10-06-2020 XR Ribs - bilateral 4 Views Normal HaofangtongBhavesh Adams Work Phone: T4 - Free Thyroxine, Serumon 10-06-2020 Free T4 [Mass/Vol] 1.09 ng/dL See Below [employer] Adams Work Phone: Comment on above: Reference Range: 0.7 8 - 1.48 Thyroxine Free testing is performed using different testing methodology at [facility] than at other [facility]. Direct result comparisons should only be made within the same method. Troponin I, Serumon 10-07-19 21 Troponin I.cardiac [Mass/Vol] 0.02 ng/mL See Below HaofangtongBhavesh Adams Work Phone: Comment on above: Reference Range: 0.0 0 - 0.03LESS THAN 0.04 NG/ML: NEGATIVEREPEAT TESTING IN THREE TO SIX HOURSIF CLINICALLY INDICATED.0.04 - 0.5 NG/ML: CONSISTENT WITH POSSIBLECARDIAC DAMAGE AND POSSIBLE INCREASEDCLINICAL RISK.SERIAL MEASUREMENTS MAY HELP ASSESS EXTENT OFMYOCARDIAL DAMAGE.>0.5 NG/ML: CONSISTENT WITH CARDIAC DAMAGE,INCREASED CLINICAL RISK AND MYOCARDIALINFARCTION. SERIAL MEASUREMENTS MAY HELPASSESS EXTENT OF MYOCARDIAL DAMAGE..Note: Troponin I testing is performed using different testing methodology at [facility] than at other [facility]. Direct result comparisons should only be made within the same method.. Biotin interference may cause falsely decreased results. Patients taking a Biotin dose of up to 5 mg/day should refrain from taking Biotin for 24 hours before sample collection. Providers may contact their laboratory for further information. IO EKG Electrocardiogram- 12 Leadon 09-28-2020 IO EKG Electrocardiogram- 12 Lead See Scanned Document [facility] Rober Martinez [address] [place] Work Phone: Office Visit (Cardiology)on 09-28-2020 Follow-up visit Diagnoses/Problems Assessed ACC/AHA stage D heart failure (428.9) (I50.84) Orders Heart failure IO EKG Electrocardiogram- 12 Lead; Status:Complete; Done: 28Sep2020 01:59PM Patient Instructions Decrease Carvedilol 3.125mg 1 tablet twice daily. Increase Furosemide 40mg 1 tablet twice daily for 3 days. We will call you on Thursday morning 10/01/20 to review blood pressure, weight, and symptoms. Follow up with Dr. Canchola on 11/12/20. Counseling The patient was counseled regarding diagnostic results, instructions for management, prognosis, patient and family education, impressions, risks and benefits of treatment options and importance of compliance with treatment. Chief Complaint CORKY DUENAS is being seen for a 6 week follow-up of heart failure. History of Present Illness [address] Canchola here for 6 week follow up for heart failure. Last visit 08/13/20, no medication changes. PMHx: HFrEF (LVEF 20%) s/p TECHNICAL APPLICATIONS SPECIALIST-D 01/2020 ([facility])/ NICM/ valvular dx (severe MR, mod to severe TR) / HTN, CHB, NSVT, pulm HTN, HLD, hypothyroid, CKD Social Hx: Former smoker, quit 1989. Quit EToH abuse >30years. Denies illicit drug use. Family Hx: Denies CV hx. Has not been feeling well fro 4 days. C/o midsternal chest tightness intermittent aggravated by exertion.1-2 episodes/day lasting 5-15 minutes resolving with rest. No relief with Nitro SL. C/o palpitations and SOB on exertion w/ambulating >30 yards, resolves with rest. +orthopnea w/ 2 pillows. Denies PND. Denies shocks from device. Denies lightheadedness, dizziness, and syncope. BLE edema. Home BP 130s/80s. HR 80s. Weight stable 135lbs. Decreased appetite w/intermittent nausea. Eating one meal/day. Medication compliant. The patient presents with non-ischemic heart failure. The patient's last LV ejection fraction was 20%. The patient is NYHA functional Class IV. This is stage D heart failure. Symptoms: worsened lower extremity edema, worsened dyspnea on exertion, worsened fatigue, worsened exercise intolerance, stable orthopnea and denies paroxysmal nocturnal dyspnea. Associated symptoms include chest pain and palpitations, but no syncope, no recent weight gain and no recent weight loss. Home Monitoring: The patient checks his weight regularly. Weight control has been good. Medications: the patient is adherent with his medication regimen. He denies medication side effects. Active Problems Problems ACC/AHA stage D heart failure (428.9) (I50.84) Cardiomyopathy (425.4) (I42.9) CKD (chronic kidney disease) (585.9) (N18.9) Complete heart block (426.0) (I44.2) Dyspnea on exertion (786.09) (R06.00) Goals of care, counseling/discussion (V65.49) (Z71.89) Heart failure (428.9) (I50.9) History of orthopnea (V15.89) (Z87.898) HTN (hypertension) (401.9) (I10) Hypothyroid (244.9) (E03.9) Lightheadedness (780.4) (R42) Mitral regurgitation (424.0) (I34.0) Nonischemic cardiomyopathy (425.4) (I42.8) NSVT (nonsustained ventricular tachycardia) (427.1) (I47.2) NYHA class 3 heart failure with reduced ejection fraction (428.9) (I50.20) Palliative care encounter (V66.7) (Z51.5) Pulmonary hypertension (416.8) (I27.20) Tricuspid regurgitation (397.0) (I07.1) Surgical History Problems History of Appendectomy History of Cardioverter defibrillator insertion Bivent ICD placed 01/2020 History of Cholecystectomy History of Tonsillectomy with adenoidectomy Current Meds Medication NameInstruction Carvedilol 3.125 MG Oral TabletTake 1 tablet twice daily Digoxin 125 MCG Oral TabletTAKE 1 TABLET BY MOUTH DAILY Entresto 49-51 MG Oral TabletTake 1 tablet twice daily Furosemide 40 MG Oral TabletTAKE 1 TABLET DAILY DIRECTED. Levothyroxine Sodium 175 MCG Oral TabletTAKE 1 TABLET DAILY DIRECTED. Magnesium Oxide 400 (241.3 Mg) MG Oral TabletTAKE 1 TABLET BY MOUTH DAILY Multivitamin Plus Iron Adult Oral Tablet Nitroglycerin 0.4 [address] Sub[address]t Sub[address] 1 TABLET UNDER THE TONGUE EVERY 5 MINUTES FOR UP TO 3 DOSES NEEDED FOR CHEST PAIN.CALL 911 IF PAIN PERSISTS. Spironolactone 25 MG Oral Tablettake 1/2 tablet daily Allergies Medication No Known Drug Allergies Recorded By: Michela Laguna; 05/17/2020 11:23:30 AM Review of Systems Constitutional: feeling tired and feeling poorly, but no recent weight gain and no recent weight loss. ENT: no hearing loss and no nosebleeds. Cardiovascular: as noted in HPI. Respiratory: shortness of breath during exertion and orthopnea, but no postural nocturnal dyspnea. Gastrointestinal: nausea, but no blood in stools, no diarrhea and no vomiting. Genitourinary: no hematuria. Musculoskeletal: limb swelling. Neurological: no dizziness and no fainting. Psychiatric: no confusion. Endocrine: thyroid disorder, but no diabetes mellitus. Hematologic/Lymphatic: does not bleed easily and does not bruise easily. Vitals Vital Signs Recorded: 28Sep2020 01:54PM Heart Rate80 [id number] (more content not included)... Normal [employer] PROGRESSon 09-01-2018 Protein mass conc HNO ID: [id number] Author: Deepa (Julio Daily Service: ? Author Type: Configuration Management Analyst Type: Progress Notes Filed: 09/01/2018 10:13 AM Note Text: [facility] [employer] QU[employer] Provider Action/FYI: I spoke with Corky and he states he's no longer living in [place]. Removed pcp. Patient identified by name and . Deepa Daily CMA [facility]2018 [facility] Patient Outreach (IN TMWS) ----- HENRIQUECORKY ([id number]) 1950 M Date Time Provider Department 08/24/18 DEEPA DAILY) INTMWS During your visit today, we recorded the following information about you: Deepa Daily CMA 09/01/2018 10:13 AM Signed PHMA TEAMLET DOCUMENTATION Provider Action/FYI: PSR Action/FYI: Due for Physical 3rd attempt - send certified letter if unsuccessful Health Maintenance Due: BP CONTROLLED (<130/80) due on 1970 ANNUAL PCP TEAM CHRONIC DISEASE VISIT due on 12/03/2016 PROSTATE CANCER SCREENING DISCUSSION due on 10/01/2017 ADULT PREVNAR-13 due on 2017 PNEUMOVAX AGE 65 AND OVER WITH 5YR LOOKBACK(1) due on 2017 Teamlet has identified patient by name and date of . Team: Dr. Tracy Arenas ? Last Office Visit:Visit date not found ? Next Office Visit: Visit date not found ? Last BP/Labs: Blood Pressure: Last 3 Encounter BP Readings: Date: BP: 12/05/2015 166/95 12/04/2015 142/82[AVERAGE (from Extended Vitals)[ 11/06/2015 134/86[ (from Extended Vitals)[ Lipids: Cholesterol, Total (mg/dL) Date Value 12/05/2015 127 HDL Cholesterol (mg/dL) Date Value 12/05/2015 41 LDL Cholesterol (mg/dL) Date Value 12/05/2015 62 Triglyceride (mg/dL) Date Value 12/05/2015 119 HGB A1C: No results found for: HBA1C TSH: TSH (uU/mL) Date Value 10/28/2007 7.300 ) Care Gap: need PCP appointment Plan: ? Confirm PCP / Status - unknown ? Type of appointment needed: Physical next available with pcp or cuff presser ? Consultation Appointments: n/a Labs, HM and Immunization: Health Maintenance Due: BP CONTROLLED (<130/80) due on 1970 ANNUAL PCP TEAM CHRONIC DISEASE VISIT due on 12/03/2016 PROSTATE CANCER SCREENING DISCUSSION due on 10/01/2017 ADULT PREVNAR-13 due on 2017 PNEUMOVAX AGE 65 AND OVER WITH 5YR LOOKBACK(1) due on 2017 LARISA Leonard CMA 09/01/2018 10:13 AM Signed POPULATION [facility] [employer] QU[employer] Provider Action/FYI: I spoke with Corky and he states he's no longer living in [place]. Removed pcp. Patient identified by name and . Deepa Daily CMA Allergies As of Date: 08/24/2018 (No Known Allergies) Date Reviewed: 12/05/2015 Reviewed by: Jacqueline Felix Ma - Fully Assessed Reason for Visit: PHMA/Care Gap Outreach [[id number]] Prescriptions as of 08/24/2018 Sig: AMLODIPINE 10 MG TABLET Take 1 tablet by mouth once d* HYDROCHLOROTHIAZIDE 25 MG TAB* Take 1 tablet by mouth once d* ESOMEPRAZOLE MAGNESIUM 40 MG * Take 1 capsule by mouth once * TRIAMCINOLONE ACETONIDE 0.1 %* Apply 1 application to affect* HYDROXYZINE HCL 25 MG TABLET Take 1-2 tablets by mouth estrellita* SUCRALFATE 1 GRAM TABLET Take 1 tablet by mouth before* MECLIZINE 25 MG TABLET Take 1 tablet by mouth every * Problem List As Of Date 08/24/2018 Noted Resolved JOINT PAIN-SHLDER [M25.519] INVALID FOR* SPRAIN OF NECK [S13.9XXA] INVALID FOR* TOBACCO USE DISORDER [F17.200] INVALID FOR* ESOPHAGEAL REFLUX [K21.9] INVALID FOR* ABDOMINAL PAIN EPIGASTRIC [R10.13] More... ACUTE GASTRITIS W/O HEMORRHAGE [K29.00] INVALID FOR* DIAPHRAGMATIC HERNIA [K44.9] INVALID FOR* URINARY INCONTINENCE, UNSPECIFIED [R32] INVALID FOR* More... Bilateral Inguinal Hernia (BIH) [K40.20] INVALID FOR* Liver cyst [K76.89] INVALID FOR* Cystic kidney disease [Q61.9] INVALID FOR* More... Diverticulosis [K57.90] INVALID FOR* Family history of ischemic heart disease [Z82.4*INVALID FOR* Encounter Status:Closed by DEEPA DAILY CMA on 09/01/18 [facility] 08-24-2018 Protein mass conc HNO ID: [id number] Author: Deepa Daily Service: ? Author Type: Configuration Management Analyst Type: Progress Notes Filed: 09/01/2018 10:13 AM Note Text: PHMA TEAMLET DOCUMENTATION Provider Action/FYI: PSR Action/FYI: Due for Physical 3rd attempt - send certified letter if unsuccessful Health Maintenance Due: BP CONTROLLED (<130/80) due on 1970 ANNUAL PCP TEAM CHRONIC DISEASE VISIT due on 12/03/2016 PROSTATE CANCER SCREENING DISCUSSION due on 10/01/2017 ADULT PREVNAR-13 due on 2017 PNEUMOVAX AGE 65 AND OVER WITH 5YR LOOKBACK(1) due on 2017 Teamlet has identified patient by name and date of . Team: Dr. Tracy Arenas ? Last Office Visit:Visit date not found ? Next Office Visit: Visit date not found ? Last BP/Labs: Blood Pressure: Last 3 Encounter BP Readings: Date: BP: 12/05/2015 166/95 12/04/2015 142/82[AVERAGE (from Extended Vitals)[ 11/06/2015 134/86[ (from Extended Vitals)[ Lipids: Cholesterol, Total (mg/dL) Date Value 12/05/2015 127 HDL Cholesterol (mg/dL) Date Value 12/05/2015 41 LDL Cholesterol (mg/dL) Date Value 12/05/2015 62 Triglyceride (mg/dL) Date Value 12/05/2015 119 HGB A1C: No results found for: HBA1C TSH: TSH (uU/mL) Date Value 10/28/2007 7.300 ) Care Gap: need PCP appointment Plan: ? Confirm PCP / Status - unknown ? Type of appointment needed: Physical next available with pcp or cuff presser ? Consultation Appointments: n/a Labs, HM and Immunization: Health Maintenance Due: BP CONTROLLED (<130/80) due on 1970 ANNUAL PCP TEAM CHRONIC DISEASE VISIT due on 12/03/2016 PROSTATE CANCER SCREENING DISCUSSION due on 10/01/2017 ADULT PREVNAR-13 due on 2017 PNEUMOVAX AGE 65 AND OVER WITH 5YR LOOKBACK(1) due on 2017 Deepa Daily CMA Normal [facility] PROGRESS 07-26-2018 Protein mass conc HNO ID: [id number] Author: Deepa Daily Service: ? Author Type: Configuration Management Analyst Type: Progress Notes Filed: 07/26/2018 9:16 AM Note Text: [facility] [employer] QU[employer] Provider Action/FYI: Letter mailed to patient. Patient identified by name and . 3rd attempt - vm box not set up. Mailing letter to patient. Deepa Daily CMA [facility] PROGRESSon 07-23-2018 Protein mass conc HNO ID: [id number] Author: Deepa Daily Service: ? Author Type: Configuration Management Analyst Type: Progress Notes Filed: 07/26/2018 9:16 AM Note Text: [facility] [employer] Provider Action/FYI: Patient identified by name and . 2nd attempt - mailbox full - unable to leave message on machine. Deepa Daily CMA [facility] PROGRESSon 07-21-2018 Protein mass conc HNO ID: [id number] Author: Deepa Daily Service: ? Author Type: Configuration Management Analyst Type: Progress Notes Filed: 07/26/2018 9:16 AM Note Text: [facility] [employer] Provider Action/FYI: Patient identified by name and . 1st attempt - mailbox full - unable to lmom. Deepa Daily CMA [facility] CNPTOUTREACHon 07-19-2018 [facility] Patient Outreach (IN TMWS) ----- CORKY DUENAS ([id number]) 1950 M Date Time Provider Department 07/19/18 DEEPA DAILY CMA INTMWS During your visit today, we recorded the following information about you: Deepa Daily CMA 07/26/2018 9:16 AM Signed [facility] CARE GAP REGISTRY DOCUMENTATION (OUTSIDE TEAMLET) Provider Action/FYI: PSR Action/FYI: Due for Physical Patient identified by name and date of . Last BP/Labs: Blood Pressure: Last 3 Encounter BP Readings: Date: BP: 12/05/2015 166/95 12/04/2015 142/82[AVERAGE (from Extended Vitals)[ 11/06/2015 134/86[ (from Extended Vitals)[ Lipids: Cholesterol, Total (mg/dL) Date Value 12/05/2015 127 HDL Cholesterol (mg/dL) Date Value 12/05/2015 41 LDL Cholesterol (mg/dL) Date Value 12/05/2015 62 Triglyceride (mg/dL) Date Value 12/05/2015 119 HGB A1C: No results found for: HBA1C TSH: TSH (uU/mL) Date Value 10/28/2007 7.300 ) ? Patient has the following care gap registry disease diagnosis:not seen since 2015 ? Patient has the following open care gaps: Health Maintenance Due: BP CONTROLLED (<130/80) due on 1970 ANNUAL PCP TEAM CHRONIC DISEASE VISIT due on 12/03/2016 PROSTATE CANCER SCREENING DISCUSSION due on 10/01/2017 ADULT PREVNAR-13 due on 2017 PNEUMOVAX AGE 65 AND OVER WITH 5YR LOOKBACK(1) due on 2017 ? Last office visit: 12/04/2015 ? Future office visit:Physical next available with pcp or cuff presser LARISA Leonard [employer] 07/26/2018 9:16 AM Signed [facility] [place] Provider Action/FYI: Patient identified by name and . 1st attempt - mailbox full - unable to lmom. LARISA Leonard [facility] 07/26/2018 9:16 AM Signed [facility] [employer] [place] Provider Action/FYI: Patient identified by name and . 2nd attempt - mailbox full - unable to leave message on machine. LARISA Leonard CMA 07/26/2018 9:16 AM Signed [facility] Provider Action/FYI: Letter mailed to patient. Patient identified by name and . 3rd attempt - vm box not set up. Mailing letter to patient. Deepa Daily CMA Allergies As of Date: 07/19/2018 (No Known Allergies) Date Reviewed: 12/05/2015 Reviewed by: Jacqueline Felix Ma - Fully Assessed Reason for Visit: PHMA/Care Gap Outreach [[id number]] Prescriptions as of 07/19/2018 Sig: AMLODIPINE 10 MG TABLET Take 1 tablet by mouth once d* HYDROCHLOROTHIAZIDE 25 MG TAB* Take 1 tablet by mouth once d* ESOMEPRAZOLE MAGNESIUM 40 MG * Take 1 capsule by mouth once * TRIAMCINOLONE ACETONIDE 0.1 %* Apply 1 application to affect* HYDROXYZINE HCL 25 MG TABLET Take 1-2 tablets by mouth estrellita* SUCRALFATE 1 GRAM TABLET Take 1 tablet by mouth before* MECLIZINE 25 MG TABLET Take 1 tablet by mouth every * Problem List As Of Date 07/19/2018 Noted Resolved JOINT PAIN-SHLDER [M25.519] INVALID FOR* SPRAIN OF NECK [S13.9XXA] INVALID FOR* TOBACCO USE DISORDER [F17.200] INVALID FOR* ESOPHAGEAL REFLUX [K21.9] INVALID FOR* ABDOMINAL PAIN EPIGASTRIC [R10.13] More... ACUTE GASTRITIS W/O HEMORRHAGE [K29.00] INVALID FOR* DIAPHRAGMATIC HERNIA [K44.9] INVALID FOR* URINARY INCONTINENCE, UNSPECIFIED [R32] INVALID FOR* More... Bilateral Inguinal Hernia (BIH) [K40.20] INVALID FOR* Liver cyst [K76.89] INVALID FOR* Cystic kidney disease [Q61.9] INVALID FOR* More... Diverticulosis [K57.90] INVALID FOR* Family history of ischemic heart disease [Z82.4*INVALID FOR* Letter Text Encounter Status:Closed by DEEPA DAILY CMA on 07/26/18 [facility] PROGRESSon 07-19-2018 Protein mass conc HNO ID: [id number] Author: Deepa Daily Service: ? Author Type: Configuration Management Analyst Type: Progress Notes Filed: 07/26/2018 9:16 AM Note Text: [facility] CARE GAP REGISTRY DOCUMENTATION (OUTSIDE TEAMLET) Provider Action/FYI: PSR Action/FYI: Due for Physical Patient identified by name and date of . Last BP/Labs: Blood Pressure: Last 3 Encounter BP Readings: Date: BP: 12/05/2015 166/95 12/04/2015 142/82[AVERAGE (from Extended Vitals)[ 11/06/2015 134/86[ (from Extended Vitals)[ Lipids: Cholesterol, Total (mg/dL) Date Value 12/05/2015 127 HDL Cholesterol (mg/dL) Date Value 12/05/2015 41 LDL Cholesterol (mg/dL) Date Value 12/05/2015 62 Triglyceride (mg/dL) Date Value 12/05/2015 119 HGB A1C: No results found for: HBA1C TSH: TSH (uU/mL) Date Value 10/28/2007 7.300 ) ? Patient has the following care gap registry disease diagnosis:not seen since 2015 ? Patient has the following open care gaps: Health Maintenance Due: BP CONTROLLED (<130/80) due on 1970 ANNUAL PCP TEAM CHRONIC DISEASE VISIT due on 12/03/2016 PROSTATE CANCER SCREENING DISCUSSION due on 10/01/2017 ADULT PREVNAR-13 due on 2017 PNEUMOVAX AGE 65 AND OVER WITH 5YR LOOKBACK(1) due on 2017 ? Last office visit: 12/04/2015 ? Future office visit:Physical next available with pcp or cuff presser Deepa Daily CMA [facility] PROGRESSon 03-16-2018 Protein mass conc HNO ID: [id number] Author: Deepa Daily Cma Service: (none) Author Type: (none) Type: Progress Notes Filed: 03/16/2018 10:03 AM Note Text: Letters mailed to patient. Normal [facility] Protein mass conc HNO ID: [id number] Author: Deepa Daily Cma Service: (none) Author Type: (none) Type: Progress Notes Filed: 03/16/2018 10:03 AM Note Text: Mailbox full - unable to lmom 3rd attempt - mailing letter. [facility] PROGRESSon 03-10-2018 Protein mass conc HNO ID: [id number] Author: Deepa Daily Cma Service: (none) Author Type: (none) Type: Progress Notes Filed: 03/16/2018 10:03 AM Note Text: Mailbox full - unable to leave a message. I will try once more and send a letter if unsuccessful. Normal [facility] Protein mass conc HNO ID: [id number] Author: Deepa Daily Cma Service: (none) Author Type: (none) Type: Progress Notes Filed: 03/16/2018 10:03 AM Note Text: Mailbox full - unable to leave a message. I will try back later. Normal [facility] Protein mass conc HNO ID: [id number] Author: Deepa Daily Cma Service: (none) Author Type: (none) Type: Progress Notes Filed: 03/16/2018 10:03 AM Note Text: PHMA TEAMLET DOCUMENTATION Provider Action/FYI: PSR Action/FYI: Patient hasn't been seen since 2016. Will reach out to patient to see who he's seeing and/or make an appointment with Dr. crooks Discuss Due HM: ANNUAL PCP TEAM CHRONIC DISEASE VISIT due on 1970 BP CONTROLLED (<130/80) due on 1970 ADULT PREVNAR-13 due on 2017 PNEUMOVAX AGE 65 AND OVER WITH 5YR LOOKBACK(1) due on 2017 INFLUENZA(1) due on 12/05/2017 Teamlet has identified patient by name and date of . Team: Dr. Tracy Lira ? Last Office Visit:Visit date not found ? Next Office Visit: Visit date not found ? Last BP/Labs: Blood Pressure: Last 3 Encounter BP Readings: Date: BP: 12/05/2015 166/95 12/04/2015 142/82[AVERAGE (from Extended Vitals)[ 11/06/2015 134/86[ (from Extended Vitals)[ Lipids: Cholesterol, Total (mg/dL) Date Value 12/05/2015 127 HDL Cholesterol (mg/dL) Date Value 12/05/2015 41 LDL Cholesterol (mg/dL) Date Value 12/05/2015 62 Triglyceride (mg/dL) Date Value 12/05/2015 119 HGB A1C: No results found for: HBA1C TSH: TSH (uU/mL) Date Value 10/28/2007 7.300 ) Care Gap: no PCP appointment since 2015 Plan: ? Confirm PCP / Status - unknown ? Type of appointment needed: Physical next available with PCP or cuff presser ? Consultation Appointments: n/a Labs, HM and Immunization: Health Maintenance Due: ANNUAL PCP TEAM CHRONIC DISEASE VISIT due on 1970 BP CONTROLLED (<130/80) due on 1970 ADULT PREVNAR-13 due on 2017 PNEUMOVAX AGE 65 AND OVER WITH 5YR LOOKBACK(1) due on 2017 INFLUENZA(1) due on 12/05/2017 Deepa Daily [facility] Normal [facility] CNPTOUTREACHon 03-09-2018 CNPTOUTREA Patient Outreach (IN TMWS) ----- CORKY DUENAS ([id number]) 1950 M Date Time Provider Department 03/09/18 DEEPA DAILY ([facility]) INTMWS During your visit today, we recorded the following information about you: Deepa Daily [facility] 03/16/2018 10:03 AM Signed PHMA TEAMLET DOCUMENTATION Provider Action/FYI: PSR Action/FYI: Patient hasn't been seen since 2015. Will reach out to patient to see who he's seeing and/or make an appointment with Dr. crooks Discuss Due HM: ANNUAL PCP TEAM CHRONIC DISEASE VISIT due on 1970 BP CONTROLLED (<130/80) due on 1970 ADULT PREVNAR-13 due on 2017 PNEUMOVAX AGE 65 AND OVER WITH 5YR LOOKBACK(1) due on 2017 INFLUENZA(1) due on 12/05/2017 Teamlet has identified patient by name and date of . Team: Dr. Tracy Lira ? Last Office Visit:Visit date not found ? Next Office Visit: Visit date not found ? Last BP/Labs: Blood Pressure: Last 3 Encounter BP Readings: Date: BP: 12/05/2015 166/95 12/04/2015 142/82[AVERAGE (from Extended Vitals)[ 11/06/2015 134/86[ (from Extended Vitals)[ Lipids: Cholesterol, Total (mg/dL) Date Value 12/05/2015 127 HDL Cholesterol (mg/dL) Date Value 12/05/2015 41 LDL Cholesterol (mg/dL) Date Value 12/05/2015 62 Triglyceride (mg/dL) Date Value 12/05/2015 119 HGB A1C: No results found for: HBA1C TSH: TSH (uU/mL) Date Value 10/28/2007 7.300 ) Care Gap: no PCP appointment since 2015 Plan: ? Confirm PCP / Status - unknown ? Type of appointment needed: Physical next available with PCP or cuff presser ? Consultation Appointments: n/a Labs, HM and Immunization: Health Maintenance Due: ANNUAL PCP TEAM CHRONIC DISEASE VISIT due on 1970 BP CONTROLLED (<130/80) due on 1970 ADULT PREVNAR-13 due on 2017 PNEUMOVAX AGE 65 AND OVER WITH 5YR LOOKBACK(1) due on 2017 INFLUENZA(1) due on 12/05/2017 [facility] 03/16/2018 10:03 AM Signed Mailbox full - unable to leave a message. I will try back later. [facility] 03/16/2018 10:03 AM Signed Mailbox full - unable to leave a message. I will try once more and send a letter if unsuccessful. [facility] 03/16/2018 10:03 AM Signed Mailbox full - unable to lmom 3rd attempt - mailing letter. [facility] 03/16/2018 10:03 AM Signed Letters mailed to patient. Allergies As of Date: 03/09/2018 (No Known Allergies) Date Reviewed: 12/05/2015 Reviewed by: Jacqueline Felix Ma - Fully Assessed Reason for Visit: PHMA/Care Gap Outreach [[id number]] Prescriptions as of 03/09/2018 Sig: AMLODIPINE 10 MG TABLET Take 1 tablet by mouth once d* ESOMEPRAZOLE MAGNESIUM 40 MG * Take 1 capsule by mouth once * HYDROCHLOROTHIAZIDE 25 MG TAB* Take 1 tablet by mouth once d* HYDROXYZINE HCL 25 MG TABLET Take 1-2 tablets by mouth estrellita* MECLIZINE 25 MG TABLET Take 1 tablet by mouth every * SUCRALFATE 1 GRAM TABLET Take 1 tablet by mouth before* TRIAMCINOLONE ACETONIDE 0.1 %* Apply 1 application to affect* Problem List As Of Date 03/09/2018 Noted Resolved JOINT PAIN-SHLDER [M25.519] INVALID FOR* SPRAIN OF NECK [S13.9XXA] INVALID FOR* TOBACCO USE DISORDER [F17.200] INVALID FOR* ESOPHAGEAL REFLUX [K21.9] INVALID FOR* ABDOMINAL PAIN EPIGASTRIC [R10.13] More... ACUTE GASTRITIS W/O HEMORRHAGE [K29.00] INVALID FOR* DIAPHRAGMATIC HERNIA [K44.9] INVALID FOR* URINARY INCONTINENCE, UNSPECIFIED [R32] INVALID FOR* More... Bilateral Inguinal Hernia (BIH) [K40.20] INVALID FOR* Liver cyst [K76.89] INVALID FOR* Cystic kidney disease [Q61.9] INVALID FOR* More... Diverticulosis [K57.90] INVALID FOR* Family history of ischemic heart disease [Z82.4*INVALID FOR* Letter Text Internal Medicine [place] [address] [facility] [address] Dept: [phone] [facility].A. March 16, 2018 Corky Duenas [address] [place] [id number] Dear Mr. Duenas In an effort to serve your healthcare needs, it has come to the attention of Lorena Crooks MD, your Primary Care Provider, that you are overdue for routine health care. We've attempted to contact you and have been unsuccessful. Please call the office at [phone] to schedule an appointment for Physical. In addition, you are due for the following health maintenance(s) Health Maintenance Due: ANNUAL PCP TEAM CHRONIC DISEASE VISIT due on 1970 BP CONTROLLED (<130/80) due on 1970 PROSTATE CANCER SCREENING DISCUSSION due on 10/01/2017 ADULT PREVNAR-13 due on 2017 PNEUMOVAX AGE 65 AND OVER WITH 5YR LOOKBACK(1) due on 2017 INFLUENZA(1) due on 12/05/2017 If any of these routine health care items were completed by an outside facility, please have that office fax the results to [phone] Attn: Lorena Crooks MD or bring the records with you to your appointment. We will gladly update your record. If you have any questions, please feel free to call the office at [phone] or message us via [place]. Thank you for choosing the [facility]. Sincerely, Deepa Daily Cma, Population Health M.ALayne (electronically signed to expedite mailing) Letter Text Lorena Crooks MD Department of Internal Medicine [address] [place] [address] Corky Duenas [id number] [address] [place] [id number] 03/16/2018 Dear : Our records indicate that Lorena Crooks MD is listed as your Primary Care Physician. It has been a period of time since you were seen in our office and we hope this finds you well. If we continue to be your primary care doctor, please consider making an appointment to update your health records, and discuss your health issues. If we no longer provide care for you, please let us know so that we can update our records. The main telephone number is [phone]. Best Regards, The office staff of Lorena Crooks MD Encounter Status:Closed by DEEPA DAILY CMA on 03/16/18 Normal [facility] Vital Signs Date Time Vital Sign Value Performing Clinician Facility 02-24-2022 14:43-0500 Diastolic blood pressure 59 mm[Hg] II Juan Manuel Albarran Work Phone: [facility] 02-24-2022 14:43-0500 Heart rate 68 /min II Juan Manuel Albarran Work Phone: [facility] 02-24-2022 14:43-0500 Respiratory rate 16 /min II Juan Manuel Albarran Work Phone: [facility] 02-24-2022 14:43-0500 SaO2% (BldA) [Mass fraction] 96 % II Juan Manuel Albarran Work Phone: [facility] 02-24-2022 14:43-0500 Systolic blood pressure 99 mm[Hg] II Juan Manuel Albarran Work Phone: [facility] 02-24-2022 14:13-0500 Inhaled oxygen flow rate 6 L/min II Juan Manuel Albarran Work Phone: [facility] 02-24-2022 12:24-0500 Body height 167.64 cm II Juan Manuel Albarran Work Phone: [facility] 02-24-2022 12:24-0500 Body mass index (BMI) [Ratio] 22.5 kg/m2 II Juan Manuel Albarran Work Phone: [facility] 02-24-2022 12:24-0500 Body weight 63.3 kg II Juan Manuel Albarran Work Phone: [facility] 02-24-2022 10:32-0500 Body temperature 97.8 [degF] II Juan Manuel Albarran Work Phone: [facility] 01-15-2022 20:43-0400 Diastolic blood pressure 76 mm[Hg] II Juan Manuel Albarran Work Phone: [facility] 01-15-2022 20:43-0400 Heart rate 67 /min II Juan Manuel Albarran Work Phone: [facility] 01-15-2022 20:43-0400 Respiratory rate 20 /min II Juan Manuel Albarran Work Phone: [facility] 01-15-2022 20:43-0400 SaO2% (BldA) [Mass fraction] 97 % II Juan Manuel Albarran Work Phone: [facility] 01-15-2022 20:43-0400 Systolic blood pressure 145 mm[Hg] II Juan Manuel Albarran Work Phone: [facility] 01-15-2022 16:42-0400 Body height 167.64 cm II Juan Manuel Albarran Work Phone: [facility] 01-15-2022 16:42-0400 Body temperature 98.2 [degF] II Juan Manuel Albarran Work Phone: [facility] 01-15-2022 16:42-0400 Body weight 62 kg II Juan Manuel Albarran Work Phone: [facility] 10-31-2021 10:49-0400 Body temperature 37.0 {degrees_C} Cristobal Garcia MD Work Phone: WT-Emdsavamzd-OIL [facility] [address] [place] Work Phone: Comment on above: NOTE: PATIENT RESULTS ARE NOT CORRECTED FOR TEMPERATURE. 10-31-2021 10:49-0400 SaO2% (BldA) [Mass fraction] 99 % Cristobal Garcia MD Work Phone: HE-Amnvalvtex-KGQ [facility] [address] [place] Work Phone: 09-09-2021 11:51-0400 Body height 167.64 cm Cristobal Garcia MD Work Phone: GC-Enqcdxcosp-HRF [facility] [address] [place] Work Phone: 09-09-2021 11:51-0400 Body mass index (BMI) [Ratio] 23.27 kg/m2 Cristobal Garcia MD Work Phone: EX-Onzarhvixe-HII [facility] [address] [place] Work Phone: 09-09-2021 11:51-0400 Body surface area Derived from formula 1.74 m2 Cristobal Garcia MD Work Phone: UL-Unnjfasrzh-TON [facility] [address] [place] Work Phone: 09-09-2021 11:51-0400 Body weight 65.4 kg Cristobal Garcia MD Work Phone: JU-Ueurrmhzwp-POR [facility] [address] [place] Work Phone: 09-09-2021 11:51-0400 Diastolic blood pressure 74 mm[Hg] Cristobal Garcia MD Work Phone: DC-Yrhambdret-IHA [facility] [address] [place] Work Phone: 09-09-2021 11:51-0400 Heart rate 74 /min Cristobal Garcia MD Work Phone: YB-Aflgpfjyey-ESE [facility] [address] [place] Work Phone: 09-09-2021 11:51-0400 SaO2% (BldA) [Mass fraction] 100 % Cristobal Garcia MD Work Phone: ML-Yllvpclwps-XTO [facility] [address] [place] Work Phone: 09-09-2021 11:51-0400 Systolic blood pressure 109 mm[Hg] Cristobal Garcia MD Work Phone: RE-Vojsxwlssg-ZAY [facility] [address] [place] Work Phone: 09-09-2021 11:51-0400 0 1 Cristobal Garcia MD Work Phone: OM-Nixwredaye-VIW [facility] [address] [place] Work Phone: Comment on above: [employer] 08-13-2021 12:48-0400 Body height 167.64 cm Mera Batista MD Work Phone: [facility] [place] Work Phone: 08-13-2021 12:48-0400 Body mass index (BMI) [Ratio] 24.53 kg/m2 Mera Batista MD Work Phone: [facility] [facility] DO Work Phone: 08-13-2021 12:48-0400 Body surface area Derived from formula 1.78 m2 Mera Batista MD Work Phone: [facility] [facility] DO Work Phone: 08-13-2021 12:48-0400 Body weight 68.95 kg Mera Batista MD Work Phone: [facility] [address] DO Work Phone: 08-13-2021 12:48-0400 Diastolic blood pressure 58 mm[Hg] Mera Batista MD Work Phone: [facility] [facility] DO Work Phone: 08-13-2021 12:48-0400 Heart rate 104 /min Mera Batista MD Work Phone: [facility] [facility] DO Work Phone: 08-13-2021 12:48-0400 Systolic blood pressure 102 mm[Hg] Mera Batista MD Work Phone: [facility] [address] DO Work Phone: 07-18-2021 14:00-0400 20 1 [id number] [facility] ULTRASOUND 01 Work Phone: [facility] Work Phone: Comment on above: [id number] 06-21-2021 09:53-0400 Body height 167.64 cm Kelly Blume [employer] Work Phone: UL-Xrjnfopfny-OOL [facility] [address] [place] Work Phone: 06-21-2021 09:53-0400 Body mass index (BMI) [Ratio] 23.89 kg/m2 Kelly Blume [employer] Work Phone: PB-Qcwhgpuhsi-AUN [facility] [address] [place] Work Phone: 06-21-2021 09:53-0400 Body surface area Derived from formula 1.76 m2 Kelly Blume [employer] Work Phone: IO-Hzjldviqrf-ACQ [facility] [address] [place] Work Phone: 06-21-2021 09:53-0400 Body weight 67.13 kg Kelly Blume [employer] Work Phone: MH-Lzrnusutcn-WQT [facility] [address] [place] Work Phone: 06-21-2021 09:53-0400 Diastolic blood pressure 82 mm[Hg] Kelly Blume [employer] Work Phone: PD-Wivgvcdvim-TBX [facility] [address] [place] Work Phone: 06-21-2021 09:53-0400 Heart rate 94 /min Kelly Blume [employer] Work Phone: TZ-Uhbijkalin-JGE [facility] [address] [place] Work Phone: 06-21-2021 09:53-0400 SaO2% (BldA) [Mass fraction] 98 % Kelly Blume [employer] Work Phone: SL-Joslrhbrjd-UIG [facility] [address] [place] Work Phone: 06-21-2021 09:53-0400 Systolic blood pressure 114 mm[Hg] Kelly Blume [employer] Work Phone: GY-Prkzdbxivk-VKR [facility] [address] [place] Work Phone: 05-20-2021 13:38-0500 Body height 167.64 cm Diaz Canchola DO Work Phone: GA-Gtdqzlecfx-ONK [facility] [address] [place] Work Phone: 05-20-2021 13:38-0500 Body mass index (BMI) [Ratio] 23.4 kg/m2 Diaz Canchola DO Work Phone: DS-Ayomkqssnt-QUI [facility] [address] [place] Work Phone: 05-20-2021 13:38-0500 Body surface area Derived from formula 1.74 m2 Diaz Canchola DO Work Phone: WJ-Jogcgizdcj-ACZ [facility] [address] [place] Work Phone: 05-20-2021 13:38-0500 Body weight 65.77 kg Diaz Canchola DO Work Phone: KI-Yqqpcfooum-AEY [facility] [address] [place] Work Phone: 05-20-2021 13:38-0500 Diastolic blood pressure 78 mm[Hg] Diaz Canchola DO Work Phone: ZQ-Kaxsmuingy-KQF [facility] [address] [place] Work Phone: 05-20-2021 13:38-0500 Heart rate 96 /min Diaz Canchola DO Work Phone: LG-Atwemaawhe-IPT [facility] [address] [place] Work Phone: 05-20-2021 13:38-0500 SaO2% (BldA) [Mass fraction] 99 % Diaz Canchola DO Work Phone: MP-Lkdeptmnre-TRQ [facility] [address] [place] Work Phone: 05-20-2021 13:38-0500 Systolic blood pressure 130 mm[Hg] Diaz Canchola DO Work Phone: HA-Abgfcixzma-PMM [facility] [address] [place] Work Phone: 09-28-2020 13:54-0400 Body height 167.64 cm Kelly Blume [employer] Work Phone: YL-Hzyhhjyucr-OIK [facility] [address] [place] Work Phone: 09-28-2020 13:54-0400 Body mass index (BMI) [Ratio] 22.92 kg/m2 Kelly Blume [employer] Work Phone: LC-Dfauyibzik-OME [facility] [address] [place] Work Phone: 09-28-2020 13:54-0400 Body surface area Derived from formula 1.73 m2 Kelly Blume [employer] Work Phone: IV-Yhghscnfpa-USC [facility] [address] [place] Work Phone: 09-28-2020 13:54-0400 Body weight 64.41 kg Kelly Blume [employer] Work Phone: HW-Prrboddzyc-MGG [facility] [address] [place] Work Phone: 09-28-2020 13:54-0400 Diastolic blood pressure 88 mm[Hg] Kelly Blume [employer] Work Phone: RT-Bmzfgrpsly-LRD [facility] [address] [place] Work Phone: 09-28-2020 13:54-0400 Heart rate 80 /min Kelly Blume [employer] Work Phone: FL-Ruelkclxxr-YWY [facility] [address] [place] Work Phone: 09-28-2020 13:54-0400 SaO2% (BldA) [Mass fraction] 98 % Kelly Blume [employer] Work Phone: RW-Mzxslizhaq-IQN [facility] [address] [place] Work Phone: 09-28-2020 13:54-0400 Systolic blood pressure 140 mm[Hg] Kelly Blume [employer] Work Phone: HR-Grlmikqzhd-EZA [facility] [address] [place] Work Phone: Encounters Encounter Date Encounter Type Care Provider Facility Start: 03-16-2023 End: 03-16-2023 ambulatory JUAN MANUEL ALBARRAN Not Available Start: 02-04-2023 End: 02-05-2023 ambulatory MERA BATISTA [facility] Start: 02-04-2023 End: 02-04-2023 Subsequent hospital visit by physician Li Dia [facility] Comment on above: AICD (automatic card ioverter/defibrillator) present; Congestive cardiomyopathy (CMS/HCC) Start: 12-16-[address] Juan Manuel Albarran II Facility:9507 Start: 11-20-[address] Juan Manuel Albarran II Facility:9507 Start: 11-09-[address] Juan Manuel Albarran II Facility:9507 Start: 10-16-[address] Juan Manuel Albarran II Facility:9507 Start: 08-21-2022 Message Juan Manuel Albarran Work Phone: [facility] Work Phone: Start: 08-19-2022 ambulatory MD MERA BATISTA Fa cility: Start: 08-15-2022 End: 08-15-[address] JUAN MANUEL ALBARRAN Facility:H1 Start: 08-07-[address] Juan Manuel Albarran II Facility:9507 Start: 07-31-[address] Juan Manuel Albarran II Facility:9507 Start: 07-10-[address] Juan Manuel Albarran II Facility:9507 Start: 07-01-[address] Juan Manuel Albarran II Facility:9507 Start: 05-24-[address] Juan Manuel Albarran II Facility:9507 Start: 05-22-[address] Juan Manuel Albarran II Facility:9507 Start: 05-14-[address] Juan Manuel Albarran II Facility:9507 Start: 05-09-[address] Juan Manuel Albarran II Facility:9507 Start: 05-07-[address] Juan Manuel Albarran II Facility:9507 Start: 05-06-[address] Juan Manuel Albarran II Facility:9507 Start: 05-04-[address] Juan Manuel Albarran II Facility:9507 Start: 04-18-[address] Juan Manuel Albarran II Facility:9507 Start: 04-11-[address] Juan Manuel Albarran II Facility:9507 Start: 04-09-[address] Juan Manuel Albararn II Facility:9507 Start: 04-07-[address] Juan Manuel Albarran II Facility:9507 Start: 04-01-[address] Juan Manuel Albarran II Facility:9507 Start: 03-26-[address] Juan Manuel Albarran II Facility:9507 Start: 03-16-[address] Juan Manuel Albarran II Facility:9507 Start: 03-14-2022 End: 03-14-2022 ambulatory Beau Goldberg Facility:[facility] Start: 03-14-2022 End: 03-14-2022 ambulatory II Juan Manuel Albarran Work Phone: [facility] Work Phone: Start: 03-14-2022 End: 03-14-2022 Patient encounter procedure II Juan Manuel Albarran Work Phone: [facility]-CT Scan [facility] [place] Start: 03-12-[address] Juan Manuel Albarran II Facility:9507 Start: 03-11-[address] Juan Manuel Albarran II Facility:9507 Start: 03-10-[address] Juan Manuel Albarran II Facility:9507 Start: 03-05-[address] Juan Manuel Albarran II Facility:9507 Start: 02-24-2022 End: 02-24-2022 ambulatory Beau Goldberg Facility:[facility] Start: 02-24-2022 End: 02-24-2022 Admission to same day surgery center II Juan Manuel Albarran Work Phone: [facility]-Surgery [facility] [place] Start: 02-24-2022 End: 02-24-2022 ambulatory II Juan Manuel Albarran Work Phone: [facility] Work Phone: Start: 02-24-[address] Juan Manuel Albarran II Facility:9507 Start: 02-20-2022 End: 02-20-2022 ambulatory Beau Goldberg Facility:[facility] Start: 02-20-2022 End: 02-20-2022 ambulatory II Juan Manuel Albarran Work Phone: [facility] Work Phone: Start: 02-20-2022 End: 02-20-2022 Patient encounter procedure II Juan Manuel Albarran Work Phone: [facility] Kac-Djc-Kmqyfbhe Testing Start: 02-11-2022 End: 02-12-2022 ambulatory ERI ROCHA Facility:H1 Start: 01-15-2022 End: 01-15-2022 Emergency department patient visit Marc Roasrio Facility:[facility] Start: 01-15-2022 End: 01-15-2022 Emergency department patient visit II Juan Manuel Albarran Work Phone: [facility]-Emergency Room Start: 01-06-2022 End: 01-08-[address] JUAN MANUEL ALBARRAN Facility:H1 Start: 11-18-2021 Chart Update Cristobal rhodes MD Work Phone: ZJ-Sshmuspukm-SDL [facility] [address] [place] Work Phone: Start: 11-14-2021 AUDIT Provider Jessi vann Work Phone: [facility] Work Phone: Start: 11-14-2021 End: 11-14-2021 Evaluation and management of inpatient Cristobal Attizzani [facility] Cardiac Route Cdl Driver Rm 08 Start: 11-01-2021 AUDIT Cristobal rhodes MD Work Phone: FP-Ewkcpzxnif-FHV [facility] [address] [place] Work Phone: Start: 10-31-2021 ambulatory CRISTOBAL ATTIZZANI Fac ility:[facility] Start: 10-31-2021 ambulatory CRISTOBAL ATTIZZANI Fac ility:[facility] Start: 10-31-2021 Encounter for blood [facility] Start: 10-31-2021 Encounter for other preprocedural examination [facility] ATTIZZANI [facility] Start: 10-31-2021 Encounter for preprocedural laboratory examination [facility] Start: 10-31-2021 Patient encounter procedure Corky Hassan Work Phone: MG-Pulm Sleep-PFT [place] [address] Work Phone: Start: 10-31-2021 ambulatory CRISTOBAL ATTIZZANI Fac ility:[facility] Start: 09-24-2021 AUDIT Janet Spears [employer] Work Phone: SJ-Nwhyjzbupc-AWL [facility] [address] [place] Work Phone: Start: 09-17-2021 Chart Update Andrea Moscoso Work Phone: XJ-Qwslfrnkrz-WSS [facility] [address] [place] Work Phone: Start: 09-09-2021 ambulatory CRISTOBAL ATTIZZANI Fac ility:[facility] Start: 09-09-2021 Office consultation new/estab patient 80 min Manish Ojeda MD Work Phone: MG-CT Surgery-[facility] [address] Work Phone: Start: 09-09-2021 Current tobacco non- user cad cap copd pv dm Cristobal Garcia MD Work Phone: GY-Kuewjkhjlg-KNC [facility] [address] [place] Work Phone: Start: 08-30-2021 AUDIT Diaz june DO Work Phone: SS-Uwzfqmgxlc-YXB [facility] [address] [place] Work Phone: Start: 08-21-2021 LUCAS, Provider: ARVIN WINSTON C,MG CARD, Status: Pen, Time: 1:00 PM Cristobal Garcia MD Work Phone: PM-Ydvzvzrryn-ZFX [facility] [address] [place] Work Phone: Start: 08-21-2021 ambulatory Juan Manuel Albarran II Facility:[facility] Start: 08-19-2021 End: 08-19-2021 ambulatory Cristobal Garcia Facility:[facility] Start: 08-19-2021 End: 08-19-2021 Patient encounter procedure II Juan Manuel Albarran Work Phone: [facility]-LA Swab Start: 08-13-2021 Current tobacco non- user cad cap copd pv apolinar Batista MD Work Phone: [facility] [address] DO Work Phone: Start: 07-31-2021 End: 07-31-2021 ambulatory Cristobal Garcia Facility:[facility] Start: 07-31-2021 End: 07-31-2021 Patient encounter procedure II Juan Manuel Albarran Work Phone: [facility] COVID Testing Start: 07-23-2021 AUDIT Cristobal rhodes MD Work Phone: NB-Razbykhyid-BEV [facility] [address] [place] Work Phone: Start: 07-22-2021 AUDIT Janet Spears [employer] Work Phone: GE-Qmoprkqxti-SAY [facility] [address] [place] Work Phone: Start: 07-19-2021 Chart Update Diaz Silva shaylee DO Work Phone: HL-Jqmotzfuyo-AAN [facility] [address] [place] Work Phone: Start: 07-18-2021 Patient encounter procedure [id number] HHVI ULTRASOUND 01 Work Phone: [facility] Work Phone: Start: 06-26-2021 AUDIT Diaz Junewilma june DO Work Phone: HH-Lbgrafitpo-MVD [facility] [address] [place] Work Phone: Start: 06-21-2021 Office outpatient vi sit 15 minutes Kelly Blume [employer] Work Phone: ZU-Tjfptkuute-DME [facility] [address] [place] Work Phone: Start: 05-20-2021 Office outpatient vi sit 25 minutes Diaz Canchola DO Work Phone: SV-Xlgatcnovu-Hnckzs ke [facility] [address] DO Work Phone: Start: 05-20-2021 Patient encounter procedure Diaz Canchola DO Work Phone: EQ-Oeqegfaozi-HBJ [facility] [address] [place] Work Phone: Start: 10-17-2020 AUDIT Kelly Blume [employer] Work Phone: RU-Ytwzchstlp-OJA [facility] [address] [place] Work Phone: Start: 10-08-2020 AUDIT Walter Moscoso Work Phone: YN-Pwuzjnxs-Otvmngk [place] Work Phone: Start: 10-01-2020 Telephone encounter Kelly Bl ume [employer] Work Phone: PX-Vnmgejwlaz-IOM [facility] [address] [place] Work Phone: Start: 09-28-2020 Office outpatient vi sit 25 minutes Kelly Blume [employer] Work Phone: YF-Okqhxlxhbq-SEI [facility] [address] [place] Work Phone: Procedures Date Procedure Procedure Detail Performing Clinician Start: 02-04-2023 CARDIAC DEVICE CHECK CHECK - REMOTE MERA BATISTA Start: 02-04-2023 CARDIAC DEVICE CHECK CHECK - REMOTE Mera Batista MD Work Phone: Start: 01-21-2023 Lipid 1996 panel - Serum or Plasma Li R emote Start: 03-14-2022 Computed tomography of abdomen and pelvis with contrast II Juan Manuel Albarran Work Phone: Start: 02-24-2022 Esophagogastroduodenoscopy II Juan Manuel Chu esqueda Work Phone: Start: 01-15-2022 CT of abdomen and pelvis without contrast II Juan Manuel Albarran Work Phone: Start: 10-31-2021 Antibody screen CRISTOBAL GARCIA Comment on above: Performed By: #### T+S #### [facility] [address] [place] [address] Start: 08-05-2021 Follow-up visit Start: 07-18-2021 Echocardiography Diaz Canchola DO Work Phone: Start: 10-06-2020 Thyrotropin [Units/volume] in Serum or Plasma Li Remote Appendectomy Kelly Blume [employer] Work Phone: Cardiac catheterization Barber Canchola DO Work Phone: Cholecystectomy Kelly Bandar e [employer] Work Phone: Insertion of pacemak er pulse generator Diaz Canchola DO Work Phone: Insertion of pulse g enerator of implantable cardioverter defibrillator Kelly Blume [employer] Work Phone: Comment on above: Bivent ICD placed 01/2020; Removal of internal cardiac defibrillator Diaz Canchola DO Work Phone: SARS Antigen (LFIA) II Royal Albarran Work Phone: Tonsillectomy and adenoidectomy Kelly Ruth APRN-SARAH Work Phone: Total colonoscopy Diaz hammond DO Work Phone: Plan of Treatment Date Care Activity Detail Author Start: 01-22-2028 Lipid panel Lipid Panel [facility] Start: 03-09-2023 Zoster Vaccines (2 of 2) Zoste r Vaccines (2 of 2) [facility] Start: 02-20-2023 FUV, Provider: Mera Batista, Status: Pen, Time: 1:20 PM FUV, Provider: Mera Batista, Status: Pen, Time: 1:20 PM [facility] Work Phone: Start: 02-20-2023 Patient encounter procedure FUVPACEMALENA, Provider: [facility]EMCPKLA[facility], Status: Pen, Time: 12:20 PM [facility] Work Phone: Start: 02-20-2023 End: 02-20-2023 Patient encounter procedure [facility] Start: 11-14-2022 Patient encounter procedure Outpatient Cardiology [facility] [id number] [place] [id number] Start: 14-Nov-2022 10:30 Janet Spears Cardiology [facility] Start: 11-14-2022 VIRFUVALFREDITO, Provider : Janet Spears, Status: Pen, Time: 10:30 AM VIRFUVALFREDITO, Provider: Janet Speras, Status: Pen, Time: 10:30 AM MU-Gnigxurfch-ZDG [facility] [address] [place] Work Phone: Start: 10-31-2022 Creatinine measurement Creatinine Le cristine [facility] Start: 10-31-2022 Potassium measurement Potassium Leve l [facility] Start: 10-01-2022 DTaP/Tdap/Td Vaccine s (2 - Td or Tdap) DTaP/Tdap/Td Vaccines (2 - Td or Tdap) [facility] Start: 08-19-2022 FUV, Provider: Mera Batista, Status: Pen, Time: 2:00 PM FUV, Provider: Mera Batista, Status: Pen, Time: 2:00 PM [facility] [facility] DO Work Phone: Start: 08-19-2022 Patient encounter procedure Outpatient [facility] [place] Start: 19-Aug-2022 14:00 Mera Batista Intent [facility] [place] Start: 07-18-2022 Echocardiography Echocardiogram [facility] Start: 02-24-2022 [facility] Start: 02-24-2022 [facility] Start: 02-18-2022 FUV, Provider: Randee Perdomo, Status: Pen, Time: 1:00 PM FUV, Provider: Randee Perdomo, Status: Pen, Time: 1:00 PM [facility] [address] DO Work Phone: Start: 02-18-2022 Patient encounter procedure [facility] [place] Start: 12-19-2021 Patient encounter procedure [facility] [place] Start: 12-19-2021 VIRFUVHOME, Provider : Josef Rush, Status: Pen, Time: 10:30 AM VIRFUVHOME, Provider: Josef Rush, Status: Pen, Time: 10:30 AM EQ-Rbgjpndxpr-XXR [facility] [address] [place] Work Phone: Start: 12-19-2021 VIRFUVHOME, Provider : Janet Spears, Status: Pen, Time: 10:30 AM VIRFUVHOME, Provider: Janet Spears, Status: Pen, Time: 10:30 AM MG-Pulm Sleep-PFT [place] [facility] Work Phone: Start: 11-21-2021 Patient encounter procedure [facility] [place] Start: 11-21-2021 VIRFUVALFREDITO, Provider : Janet Spears, Status: Pen, Time: 11:00 AM VIRFUVHOME, Provider: Janet Spears, Status: Pen, Time: 11:00 AM MA-Ekbscnvmiz-QDX [facility] [address] [place] Work Phone: Start: 11-15-2021 End: 11-16-2022 [facility] Start: 11-14-2021 Patient encounter procedure TOM, Provider: [facility]PINA, Status: Pen, Time: 12:20 PM KA-Ceaajwguwz-OHJ [facility] [address] [place] Work Phone: Start: 11-14-2021 End: 11-15-2022 [facility] Comment on above: for patients 120 kg or less When tolerating PO 1. Dilute 1.3 mL of activated DEFINITY with 8.7 mL of normal saline in a 10 mL syringe.2. Inject 0.5 mL of diluted DEFINITY when notified the images/film are unclear to enhance view of Left Ventricular borders.3. Repeat 0.5 mL of DEFINITY until clear images are obtained, not to exceed 10 mLs.4. Once images are obtained or limit of medication is reached, flush line with 10 mL of Normal Saline. Start: 10-31-2021 PFT, Provider: JESUS SALINAS 6TH FLR PFT RM 2,PULM, Status: Pen, Time: 11:30 AM PFT, Provider: JESUS MESSER 6TH FLR PFT RM 2,PULM, Status: Pen, Time: 11:30 AM RJ-Lwukkoxbuu-BQL [facility] [address] [place] Work Phone: Start: 10-31-2021 ABG, Provider: JESUS SALINAS 6TH FLR PFT RM 2,PULM, Status: Pen, Time: 11:15 AM ABG, Provider: JESUS MESSER 6TH FLR PFT RM 2,PULM, Status: Pen, Time: 11:15 AM CF-Uksxjqgtoi-FLS [facility] [address] [place] Work Phone: Start: 10-31-2021 PST, Provider: JESUS SALINAS 6TH FLR PFT WALKWAY,PULM, Status: Pen, Time: 10:45 AM PST, Provider: JESUS MESSER 6TH FLR PFT WALKWAY,PULM, Status: Pen, Time: 10:45 AM BH-Tvcbzylszx-RHI [facility] [address] [place] Work Phone: Start: 10-06-2021 Thyroid stimulating hormone measurement TSH Level [facility] Start: 09-09-2021 NPVTAVR, Provider: Manish Ojeda, Status: Pen, Time: 11:30 AM NPVTAVR, Provider: Manish Ojeda, Status: Pen, Time: 11:30 AM [facility] [address] [place] Work Phone: Start: 09-09-2021 NPVVALVECL, Provider : Cristoabl Garcia, Status: Pen, Time: 11:00 AM NPVVALVECL, Provider: Cristobal Garcia, Status: Pen, Time: 11:00 AM [facility] [place] Work Phone: Start: 08-21-2021 LUCAS, Provider: SUZANNEEC HO ROOM C,MG CARD, Status: Pen, Time: 1:00 PM LUCAS, Provider: SUZANNEECHO ROOM C,MG CARD, Status: Pen, Time: 1:00 PM [facility] [place] Work Phone: Start: 08-13-2021 FUV, Provider: Mera Batista, Status: Pen, Time: 12:40 PM FUV, Provider: Mera Batista, Status: Pen, Time: 12:40 PM ES-Zjootvzljh-WOZ [facility] [address] [place] Work Phone: Start: 08-13-2021 Patient encounter procedure FUVPACEMKR, Provider: [facility],EMCPACEMKR, Status: Pen, Time: 11:40 AM FE-Mhrohanrvj-PMH [facility] [address] [place] Work Phone: Start: 08-05-2021 NPVTAVR, Provider: Manish Ojeda, Status: Pen, Time: 11:00 AM NPVTAVR, Provider: Manish Ojeda, Status: Pen, Time: 11:00 AM [facility] Work Phone: Start: 08-05-2021 NPVVALVECL, Provider : Cristobal Garcia, Status: Pen, Time: 10:30 AM NPVVALVECL, Provider: Cristobal Garcia, Status: Pen, Time: 10:30 AM [facility] Work Phone: Start: 08-02-2021 LUCAS, Provider: SUZANNEEC HO ROOM C,MG CARD, Status: Pen, Time: 10:30 AM LUCAS, Provider: SUZANNEECHO ROOM C,MG CARD, Status: Pen, Time: 10:30 AM FS-Ruvraupzml-GAQ [facility] [address] [place] Work Phone: Start: 07-18-2021 ECHO, Provider: CARSON [facility] ULTRASOUND 01,[id number], Status: Pen, Time: 2:00 PM ECHO, Provider: CARROLL [facility] ULTRASOUND 01,[id number], Status: Pen, Time: 2:00 PM SS-Xzksfqihrj-LWT [facility] [address] [place] Work Phone: Start: 06-21-2021 FUV, Provider: Kelly Ruth, Status: Pen, Time: 10:00 AM FUV, Provider: Kelly Ruth, Status: Pen, Time: 10:00 AM AS-Stoutwnpfs-CMO [facility] [address] [place] Work Phone: Start: 05-15-2021 COVID-19 Vaccine (4 - Moderna series) COVID-19 Vaccine (4 - Moderna series) [facility] Start: 02-01-2021 Patient encounter procedure FUVPACEMKR, Provider: [facility],EMCPACEMKR, Status: Pen, Time: 2:20 PM WT-Pzbjwdgmhr-VBE [facility] [address] [place] Work Phone: Start: 11-12-2020 FUV, Provider: Diaz Canchola, Status: Pen, Time: 2:40 PM FUV, Provider: Diaz Canchola, Status: Pen, Time: 2:40 PM EM-Hffjacpknb-QLO [facility] [address] [place] Work Phone: Start: 2012 Hepatitis B Vaccines (1 of 3 - Risk 3-dose series) Hepatitis B Vaccines (1 of 3 - Risk 3-dose series) [facility] Start: 10-21-1971 Hepatitis A Vaccines (1 of 2 - Risk 2-dose series) Hepatitis A Vaccines (1 of 2 - Risk 2-dose series) [facility] Start: 1970 Diabetes mellitus screening Diabetes Screening [facility] Start: 1950 Medicare Annual Well ness Visit Medicare Annual Wellness Visit (AWV) [facility] Start: 1950 Screening for malign ant neoplasm of colon [facility] Cardiac defibrillato r in place Cardiac defibrillator in place [facility] End: 02-04-2023 Cardiac Device Check - Remote [facility] Service Area Work Phone: Comment on above: Once for 1 Occurrenc es starting 02/04/2023 until 02/04/2023 Cardiomyopathy Cardiomyopathy [facility] Dyspnea Dyspnea [facility] Encounter for implan table defibrillator reprogramming or check Encounter for implantable defibrillator reprogramming or check [facility] Goals of care, counseling/discussion [facility] Other specified afte rcare following surgery Other specified aftercare following surgery [facility] Patient Education [facility] Work Phone: Patient referral [facility] Work Phone: Immunizations Immunization Date Immunization Notes Care Provider Princess leblanc 11-21-2021 Prevnar 20 0.5 ML Intramuscular Suspension Prefilled Syringe Juan Manuel Albarran Work Phone: [facility] Work Phone: 03-20-2021 Moderna COVID-19 Vac cine 100 MCG/0.5ML Intramuscular Suspension Mera Batista MD [facility] Work Phone: 02-25-2021 influenza, high dose seasonal, preservative-free Mera Batista MD Work Phone: [facility] [address] DO Work Phone: 09-14-2020 Moderna COVID-19 Vac cine 100 MCG/0.5ML Intramuscular Suspension Diaz Canchola DO Work Phone: XG-Fxrehmdqvd-HEJ [facility] [address] [place] Work Phone: 08-20-2020 Moderna COVID-19 Vac cine 100 MCG/0.5ML Intramuscular Suspension Diaz Sushant DO Work Phone: WR-Becooiqvjg-HXX [facility] [address] [place] Work Phone: 06-11-2020 pneumococcal polysaccharide vaccine, 23 valent Diaz Sushant DO Work Phone: SE-Olasoyxlda-ROU [facility] [address] [place] Work Phone: 08-25-2018 pneumococcal polysaccharide vaccine, 23 valent Diaz Sushant DO Work Phone: UR-Xkwzvbnkmb-SBK [facility] [address] [place] Work Phone: 02-02-2017 seasonal influenza, intradermal, preservative free Diaz Sushant DO Work Phone: WR-Qrzpdtxrpa-PGW [facility] [address] [place] Work Phone: 12-25-2015 influenza, injectabl e, quadrivalent, contains preservative Diaz Sushant DO Work Phone: SC-Qofixnistp-ZZW [facility] [address] [place] Work Phone: 01-15-2015 influenza, seasonal, injectable Diaz Canchola DO Work Phone: CD-Iosgptjzrc-WAQ [facility] [address] [place] Work Phone: Payers Date Payer Category Payer Medicare [employer] MEDICARE A ETNA MEDICARE VALUE PLAN [id number] 2022-Present [address] [place] [address] [id number] 2021 Self-pay [id number] 2021 Unknown [id number] 2021 Unknown [id number] 1959 [facility] Health Insurance [facility] [id number] 1952 Unknown [id number] 2.16.840.1.529735.3.579.2.5 93 1952 Unknown [id number] 2.16.840.1.204431.3.579.2.5 93 1952 Unknown [id number] 2.16.840.1.611671.3.579.2.5 93 1952 Unknown [id number] 2.16.840.1.995978.3.579.2.3 56 1952 Unknown [id number] 2.16.840.1.132241.3.579.2.3 56 1952 Unknown [id number] 2.16.840.1.285633.3.579.2.3 56 1952 Unknown [id number] 2.16.840.1.216776.3.579.2.3 56 1952 Unknown [id number] 2.16.840.1.935966.3.579.2.3 56 1952 Unknown [id number] 2.16.840.1.612376.3.579.2.3 56 1952 Unknown [id number] 2.16.840.1.437832.3.579.2.3 56 1952 Unknown [id number] 2.16.840.1.078889.3.579.2.1 246 1952 Unknown [id number] 2.16.840.1.927244.3.579.2.1 068 1952 Unknown [id number] 2.16.840.1.416147.3.579.2.1 068 1952 Unknown [id number] 2.16.840.1.625005.3.579.2.1 1952 Unknown [id number] 2.16.840.1.969989.3.579.2.1 1952 Unknown [id number] 2.16.840.1.069378.3.579.2.1 1952 Unknown [id number] 2.16.840.1.104075.3.579.2.1 1952 Unknown [id number] 2.16.840.1.325757.3.579.2.1 1952 Unknown [id number] 2.16.840.1.510539.3.579.2.1 1952 Unknown [id number] 2.16.840.1.388677.3.579.2.1 1952 Unknown [id number] 2.16.840.1.353917.3.579.2.1 1952 Unknown [id number] 2.16.840.1.294352.3.579.2.1 1952 Unknown [id number] 2.16.840.1.645880.3.579.2.1 1952 Unknown [id number] 2.16.840.1.550198.3.579.2.1 1952 Unknown [id number] 2.16.840.1.907253.3.579.2.1 1952 Unknown [id number] 2.16.840.1.030747.3.579.2.1 1952 Unknown [id number] 2.16.840.1.088900.3.579.2.1 1952 Unknown [id number] 2.16.840.1.112614.3.579.2.1 1952 Unknown [id number] 2.16.840.1.691710.3.579.2.1 1952 Unknown [id number] 2.16.840.1.055240.3.579.2.1 1952 Unknown [id number] 2.16.840.1.230197.3.579.2.1 1952 Unknown [id number] 2.16.840.1.962550.3.579.2.1 1952 Unknown [id number] 2.16.840.1.917538.3.579.2.1 1952 Unknown [id number] 2.16.840.1.260934.3.579.2.1 1952 Unknown [id number] 2.16.840.1.344834.3.579.2.1 1952 Unknown [id number] 2.16.840.1.179324.3.579.2.1 1952 Unknown [id number] 2.16.840.1.818432.3.579.2.1 1952 Unknown [id number] 2.16.840.1.995932.3.579.2.1 1952 Unknown [id number] 2.16.840.1.853823.3.579.2.1 1952 Unknown [id number] 2.16.840.1.707913.3.579.2.1 259 Medicare [id number] Unknown Unknown [id number] 2.16.840.1.495980.3.579.2.5 31 Unknown [id number] 2.16.840.1.813532.3.579.2.5 31 Unknown [id number] 2.16.840.1.288600.3.579.2.5 31 Unknown [id number] 2.16.840.1.000969.3.579.2.5 31 Unknown [id number] 2.16.840.1.120368.3.579.2.5 31 Unknown [id number] 2.16.840.1.401704.3.579.2.5 31 Social History Date Type Detail Facility Caffeine use Caffeine use FX-Agzttpbdoi-O [facility] [address] [place] Work Phone: Comment on above: 3 cups a day; Start: 09-14-2019 End: 02-24-2022 Tobacco smoking status OKIS Ex-smoker (finding) [facility] Start: 1950 Sex Assigned At Male [facility] Tobacco smoking consumption unknown [facility] Start: 01-15-2022 End: 01-15-2022 Tobacco smoking status [facility] Never smoked tobacco (finding) [facility] Start: 1950 Sex Assigned At Not on file [facility] Work Phone: Gender identity Not on file [facility] Work Phone: Goals Date Patient Goal Desired Activity /State Functional Status Date Assessment Result Facility Functional observable [facility] [place] Mental Status Date Assessment Result Facility 11-14-2021 Cognitive functi ons [id number] [facility] Clinical Notes 08-13-2020 to 11-14-2021 <item><item><item><item><item><item><item><item><item><item><item><item> Note Date & Type Note Facility 11-14-2021 Note Send Summary: Discharge Summary Providers: Provider RoleProvider Name Diaz Ledesma Guilherme PrimaryBerry, Daniel B Note Recipients: Diaz Canchola DO Discharge: Summary: Admission Date: .14-Nov-2021 09:30:00 Discharge Date: 14-Nov-2021 Attending Physician at Discharge: Cristobal Garcia Admission Reason: MitraClip(1) Final Discharge Diagnoses: Mitral regurgitation Procedures: none Condition at Discharge: Satisfactory Disposition at Discharge: .Home Hospital Course: Explosive Operator: Dr. Diaz Canchola Patient is a pleasant 70 year-old male with previous medical history significant for hypertension, non-ischemic cardiomyopathy, s/p TECHNICAL APPLICATIONS SPECIALIST-D, who was referred for evaluation of mitral and tricuspid regurgitation. Patient endorses progressively worsening dyspnea with minimal exertion (walking less than 1 block) and orthopnea. 11/14/2021: S/P cancelled procedure - After general anesthesia, TTE showing only mild Mitral Regurgitation, probably due to clinical compensation and S/P TECHNICAL APPLICATIONS SPECIALIST with LV function improvement, therefore the procedure has been cancelled. Patient d/c on the same home medication. Immunizations: Immunizations: 11-Jun-2020 Pneumonia- Pneumococcal polysaccharide vaccine: Immunizations, 11-Jun-2020 Discharge Information: and Continuing Care: Lab Results - Pending: None Radiology Results - Pending: None Discharge Instructions: Activity: May not drive for 1 week(s). No pushing, pulling, or lifting objects greater than 10 pounds for 1 week(s). You are advised to go directly home from the hospital DO NOT lift anything heavier than 10 pounds for one week, this allows for proper healing of the groin No excessive exercise or treadmill use for one week. You may walk and do stairs, slowly No sexual activities for 1 week post procedure Balance activity with rest, gradually increase your activity as tolerated Exercise as prescribed by your physician Nutrition/Diet: low sodium Wound Care: If slight bleeding should occur at site, lie down and have someone apply firm pressure just above the puncture site for 5 minutes. If it continues or is profuse, call 911. Always notify your doctor if bleeding occurs Keep site clean and dry. Let air dry or you may use a simple bandaid Gently cleanse the puncture site in your groin with soap and water only You may experience some tenderness, bruising or minimal inflammation. If you have any concerns, you may contact the Route Cdl Driver or if any of these symptoms become excessive, contact your emergency medical dispatcher or go to the emergency room No tub baths, soaking, or swimming for one week May shower the next day after your procedure Additional Orders: Additional Instructions: Please weigh yourself daily and keep record Please take blood pressure 2 times (at least 60 min AFTER you take your meds) a day and record Bring these to follow up Valve procedure follow-up appointments. A lab requisition has been provided for you to draw a CBC, BMP, and PT/INR. Please take this rec to your local lab to have your labs drawn between 4-7 days post discharge. If you do not have a lab convenient to you, please have them fax results to [phone]. You have been given the order requisition for the 1 month ECHO at the time of your discharge. Please call and schedule this ECHO at your LOCAL center (no sooner than 23 days after your procedure date). Shower DAILY. Remove all of your dressings when you shower. You may cover with sterile gauze or bandaids. Change these daily. They may be left open to air if wounds are healed. You will have 3 appointments that are vital to you post procedure, these will be scheduled for you IF YOU NEED TO CHANGE YOUR APPOINTMENT TIME/DATE, PLEASE CALL Please follow up with your PCP within 7-14 days of discharge You will follow up with your primary emergency medical dispatcher in 6-10 weeks No elective dental procedures or cleanings for 3 months post procedure You will need dental prophylaxis (oral antibiotic) prior to dental work/cleanings for life. Please call for any questions or concerns: - Nurse Line M-F 9am-4pm: - On-Call Senior Risk Manager: Follow Up Appointments: Follow-Up Appointment 01: Physician/Dept/Service: Janet Spears CNP Reason for Referral: 1 week Structural Heart DIRECTOR CREDIT RISK follow-up Scheduled Date/Time: 21-Nov-2021 11:00 Location: virtual visit Phone Number: Scheduling questions [phone] or Structural Heart Team [phone] Follow-Up Appointment 02: Physician/Dept/Service: Janet Spears CNP Reason for Referral: 1 month Structural Heart DIRECTOR CREDIT RISK follow-up Scheduled Date/Time: 19-Dec-2021 10:30 Location: virtual visit Phone Number: Scheduling questions [phone] or Structural Heart Team [phone] Follow-Up Appointment 03: Physician/Dept/Service (more content not included)... [facility] 11-14-2021 Hospital Discharge instructions Activity:May not drive for 1 week(s). No pushing, pulling, or lifting objects greater than 10 pounds for 1 week(s).Additional Orders:Additional Instructions: Please weigh yourself daily and keep recordPlease take blood pressure 2 times (at least 60 min AFTER you take your meds) a day and recordBring these to follow up Valve procedure follow-up appointments.A lab requisition has been provided for you to draw a CBC, BMP, and PT/INR. Please take this rec to your local lab to have your labs drawn between 4-7 days post discharge. If you do not have a lab convenient to you, please have them fax results to [phone].You have been given the order requisition for the 1 month ECHO at the time of your discharge. Please call and schedule this ECHO at your LOCAL center (no sooner than 23 days after your procedure date).Shower DAILY. Remove all of your dressings when you shower. You may cover with sterile gauze or bandaids. Change these daily. They may be left open to air if wounds are healed.You will have 3 appointments that are vital to you post procedure, these will be scheduled for you IF YOU NEED TO CHANGE YOUR APPOINTMENT TIME/DATE, PLEASE CALL Please follow up with your PCP within 7-14 days of dischargeYou will follow up with your primary emergency medical dispatcher in 6-10 weeksNo elective dental procedures or cleanings for 3 months post procedureYou will need dental prophylaxis (oral antibiotic) prior to dental work/cleanings for life. Please call for any questions or concerns: - Nurse Line M-F 9am-4pm: - On-Call Senior Risk Manager: Calq Provider If:Breathing faster than normal. Temperature is greater than 102 degrees. Chills. Urinating less than normal, over 1 day. Acting very sleepy and difficult to awaken. Vomiting (throwing up) and not able to eat or drink for 12 hours. 3 or more loose, watery bowel movements in 24 hours (diarrhea). Any new concerning symptoms.Patient Instructions, Next 24 hours:DO NOT drink any alcoholic drinks or take any non-prescriptive medications that contain alcohol for the first 24 hours. DO NOT make any important decisions for the first 24 hours.Activity:You are advised to go directly home from the hospital. DO NOT lift anything heavier than 10 pounds for one week, this allows for proper healing of the groin. No excessive exercise or treadmill use for one week. You may walk and do stairs, slowly. No sexual activities for 1 week post procedure.Wound Care:If slight bleeding should occur at site, lie down and have someone apply firm pressure just above the puncture site for 5 minutes. If it continues or is profuse, call 911. Always notify your doctor if bleeding occurs. Keep site clean and dry. Let air dry or you may use a simple bandaid. Gently cleanse the puncture site in your groin with soap and water only. You may experience some tenderness, bruising or minimal inflammation. If you have any concerns, you may contact the Route Cdl Driver or if any of these symptoms become excessive, contact your emergency medical dispatcher or go to the emergency room. No tub baths, soaking, or swimming for one week. May shower the next day after your procedure.Other Instructions:If you develop diffficulty breathing, rash, hives, severe nausea, vomiting, light-headedness or any signs of infection, immediately contact your doctor and go to the nearest emergency room.Patient Instructions:- CALL 911 IF YOU HAVE ANY OF THE SIGNS AND SYMPTOMS OF HEART FAILURE: 1. Chest pain 2. Significant Shortness of breath 3. Fainting. - Notify your physician immediately if you have shortness of breath; weight gain of 3 lbs. or more; fatigue and loss of energy; swelling of lower extremities or abdomen; dizziness or fainting; change of appetite; and frequent coughing. - Patient received Living With Heart Failure book. - Daily weight on the same scale, same time after voiding and before eating. - Maintain daily weight log.Activity (Heart Failure):- Balance activity with rest, gradually increase your activity as tolerated. - Exercise as prescribed by your physician.Follow Up Appointment 1:Physician/Dept/Service: Clayton Gonzales for Referral: 1 week Structural Heart DIRECTOR CREDIT RISK follow-upScheduled Date/Time: 21-Nov-2021 11:00Location: virtual visitPhone Number: Scheduling questions [phone] or Structural Heart Team [phone]: Please keep a record of your daily weights, as well as your blood pressures (take your blood pressure 2 times a day atleast 1 hour after your pills). Bring these results to your follow up appointmentsFollow Up Appointment 2:Physician/Dept/Service: Clayton Gonzales for Referral: 1 month Structural Heart DIRECTOR CREDIT RISK follow-upScheduled Date/Time: 19-Dec-2021 10:30Location: virtual visitPhone Number: Scheduling questions [phone] or Structural Heart Team [phone]: You have been given the order requisition for the 1 month ECHO at the time of your discharge. Please call and schedule this ECHO at your LOCAL center (no sooner than 23 days after your procedure date).Follow Up Appointment 3:Physician/Dept/Service: Clayton Gonzlaes for Referral: 1 year Structural Heart DIRECTOR CREDIT RISK follow-upScheduled Date/Time: 14-Nov-2022 10:30Location: virtual visitPhone Number: Scheduling questions [phone] or Structural Heart Team [phone] [facility] 11-14-2021 Note History of Present I llness: Admission Reason: MitraClip HPI: Explosive Operator: Dr. Diaz Canchola Patient is a pleasant 70 year-old male with previous medical history significant for hypertension, non-ischemic cardiomyopathy, s/p TECHNICAL APPLICATIONS SPECIALIST-D, who was referred for evaluation of mitral and tricuspid regurgitation. Patient endorses progressively worsening dyspnea with minimal exertion (walking less than 1 block) and orthopnea. NYHA: Class 3 Frailty score: 0/5 EKG: pacing rhythm TTE: LVEF 20%, severe MR, severe TR, RVSP 54.5 mmHg LUCAS: LVEF 15-20%, severe MR with central jet, severe TR LH (): normal coronaries Dental assessment: no significant signs of infection STS Score: Risk of Mortality: 5.448% Renal Failure: 3.520% Permanent Stroke: 1.338% Prolonged Ventilation: 14.742% DSW Infection: 0.105% Reoperation: 5.124% Morbidity or Mortality: 18.746% Short Length of Stay: 26.799% Long Length of Stay: 9.303% Comorbidities: Comorbidites: Comorbid Conditionscongestive heart failure Type of Congestive Heart Failurecombined systolic and diastolic CHF Additional SpecificityN/A Allergies: No Known Allergies: Medications Prior to Admission: digoxin 125 mcg (0.125 mg) oral tablet: 1 tab(s) orally once a day furosemide 40 mg oral tablet: 1 tab(s) orally once a day carvedilol 12.5 mg oral tablet: 1.5 tab(s) orally 2 times a day cholecalciferol 50 mcg (2000 intl units) oral tablet: 1 tab(s) orally once a day sacubitril-valsartan 97 mg-103 mg oral tablet: 1 tab(s) orally 2 times a day levothyroxine 300 mcg (0.3 mg) oral tablet: 1 tab(s) orally once a day magnesium oxide 400 mg oral tablet: 1 tab(s) orally once a day Multiple Vitamins with Iron oral tablet: 1 tab(s) orally once a day. Assessment and Plan: Assessment: # severe functional mitral regurgitation # Non-ischemic cardiomyopathy, HFrEF, s/p TECHNICAL APPLICATIONS SPECIALIST-D Considering his cardiac comorbidities including severely reduced LVEF and functional etiology of MR, on top of increased risk of conventional surgery, transcatheter approach would be a reasonable option. Case discussed with Dr. Garcia and Dr. Ojeda. All exams including echocardiogram, R/LHC, TTE/LUCAS will be reviewed and taken into account. After aforementioned testing and consultation, the patient will be discussed at Valve Team meeting for final decision making. Attestation: Note Completion: I am a: Resident/Fellow Attending AttestationI saw and evaluated the patient. I personally obtained the bland and critical portions of the history and physical exam or was physically present for bland and critical portions performed by the resident/fellow. I reviewed the resident/fellows documentation and discussed the patient with the resident/fellow. I agree with the resident/fellows medical decision making as documented in the note. I personally evaluated the patient [id number] Electronic Signatures: Cristobal Garcia) (Signed 14-Nov-2021 16:57) Authored: Note Completion Co-Signer: History of Present Illness, Comorbidities, Allergies, Medications Prior to Admission, Objective, Assessment and Plan, Note Completion Andrea Cuevas (Fellow)) (Signed 14-Nov-2021 13:19) Authored: History of Present Illness, Comorbidities, Allergies, Medications Prior to Admission, Objective, Assessment and Plan, Note Completion Last Updated: 14-Nov-2021 16:57 by Cristobal Garcia) [facility] 11-14-2021 Note History & Physical R eviewed: I have reviewed the History and Physical dated: 14-Nov-2021 History and Physical reviewed and relevant findings noted. Patient examined to review pertinent physical findings.: No significant changes Home Medications Reviewed: no changes noted Allergies Reviewed: no changes noted Airway/Sedation Assessment: Assmentment by AnesthesiaSee anesthesia airway/sedation assessment. ERAS (Enhanced Recovery After Surgery): ERAS Patient: no Consent: COVID-19 Consent: COVID-19 Risk ConsentSurgeon has reviewed bland risks related to the risk of josesito COVID-19 and if they contract COVID-19 what the risks are. Attestation: Note Completion: I am a: Resident/Fellow Attending AttestationI saw and evaluated the patient. I personally obtained the bland and critical portions of the history and physical exam or was physically present for bland and critical portions performed by the resident/fellow. I reviewed the resident/fellows documentation and discussed the patient with the resident/fellow. I agree with the resident/fellows medical decision making as documented in the note. I personally evaluated the patient [id number] Electronic Signatures: Cristobal Gacria) (Signed 14-Nov-2021 16:57) Authored: Note Completion Co-Signer: History & Physical Reviewed, Airway/Sedation, ERAS, Consent, Note Completion Andrea Cuevas (Fellow)) (Signed 14-Nov-2021 13:18) Authored: History & Physical Reviewed, Airway/Sedation, ERAS, Consent, Note Completion Last Updated: 14-Nov-2021 16:57 by Cristobal Garcia) [facility] 11-14-2021 Note Clinical Note - Phar karen v2: Education: Document TopicMedication Education MedicationMeds to Beds: Patient declines Meds to Beds service at discharge. Sources used to confirm home medication list: Patient interview/ Chart review Aspirin: not prescribed Statin: not prescribed P2Y12 inhibitor: not prescribed Anticoagulant: not prescribed Additional Notes: Per pt interview- Pt has not been taken his carvedilol 12.5 mg BID bc pt feels that his BP has been low so family has not been given it to him. Medication reconciliation complete Please reach out via Penxyo for questions Jacqueline Jones, PharmD, Meds PGY1 Resident Meds Ambulatory and Retail Services Is This Intervention Medication Reconciliation Relatedyes Time [id number] minutes Additional NotesDrug Name: digoxin 125 mcg (0.125 mg) oral tablet Instructions: 1 tab(s) orally once a day Drug Name: furosemide 40 mg oral tablet Instructions: 1 tab(s) orally once a day Drug Name: carvedilol 12.5 mg oral tablet Instructions: 1.5 tab(s) orally 2 times a day Drug Name: cholecalciferol 50 mcg (2000 intl units) oral tablet Instructions: 1 tab(s) orally once a day Drug Name: sacubitril-valsartan 97 mg-103 mg oral tablet Instructions: 1 tab(s) orally 2 times a day Drug Name: levothyroxine 300 mcg (0.3 mg) oral tablet Instructions: 1 tab(s) orally once a day Drug Name: magnesium oxide 400 mg oral tablet Instructions: 1 tab(s) orally once a day Drug Name: Multiple Vitamins with Iron oral tablet Instructions: 1 tab(s) orally once a day Allergy: Allergies Summary No Known Allergies Electronic Signatures: Jacqueline Jones ([facility]) (Signed 14-Nov-2021 10:52) Authored: Education, Allergy Teresa Valverde ([facility]) (Signed 14-Nov-2021 11:24) Co-Signer: Education, Allergy Last Updated: 14-Nov-2021 11:24 by Teresa Valverde ([facility]) [facility] 05-20-2021 History of Present illness Narrative [address] Canchola here for 1 month follow up for heart failure. Last visit 05/20/21, increased Entresto 97-103mg BID. Order for RFP/BNP/Dig.PMHx: HFrEF (LVEF 20%) s/p TECHNICAL APPLICATIONS SPECIALIST-D 01/2020 ([facility])/ NICM/ valvular dx (severe MR, mod to severe TR) / HTN, CHB, NSVT, pulm HTN, HLD, hypothyroid, CKDSocial Hx: Former smoker, quit 1989. Quit EToH abuse >30years. Denies illicit drug use.Family Hx: Denies CV hx.Endorses chest pain last night while laying down. Diaphoretic w/LUE numbness and nausea. Lasted about 7 minutes. No relief with Nitro SL x1. Endorses palpitations at night when trying to sleep. SOB on exertion w/ambulating 4 blocks, resolves with rest. Orthopnea w/ 2 pillows. Denies PND. Denies shocks from device. Endorses lightheadedness. Denies dizziness and syncope. Denies BLE edema. Home BP 130s/80s. HR 80s. Weight [id number]. Decreased appetite w/intermittent nausea. Eating one meal/day. Medication compliant.The patient presents with non-ischemic heart failure. The patient's last LV ejection fraction was 20%. The patient is NYHA functional Class IV. This is stage D heart failure.Symptoms: denies lower extremity edema, stable dyspnea on exertion, stable fatigue, stable exercise intolerance, stable orthopnea and denies paroxysmal nocturnal dyspnea. Associated symptoms include chest pain and palpitations, but no syncope, no recent weight gain and no recent weight loss.Home Monitoring: The patient checks his weight regularly. Weight control has been good.Medications: the patient is adherent with his medication regimen. He denies medication side effects. [id number]-TMN Rober [address] [place] Work Phone: 08-13-2020 History of Present illness Narrative [address] Canchola here for 6 week follow up for heart failure. Last visit 08/13/20, no medication changes.PMHx: HFrEF (LVEF 20%) s/p TECHNICAL APPLICATIONS SPECIALIST-D 01/2020 ([facility])/ NICM/ valvular dx (severe MR, mod to severe TR) / HTN, CHB, NSVT, pulm HTN, HLD, hypothyroid, CKDSocial Hx: Former smoker, quit 1989. Quit EToH abuse >30years. Denies illicit drug use.Family Hx: Denies CV hx.Has not been feeling well fro 4 days. C/o midsternal chest tightness intermittent aggravated by exertion.1-2 episodes/day lasting 5-15 minutes resolving with rest. No relief with Nitro SL. C/o palpitations and SOB on exertion w/ambulating >30 yards, resolves with rest. +orthopnea w/ 2 pillows. Denies PND. Denies shocks from device. Denies lightheadedness, dizziness, and syncope. BLE edema. Home BP 130s/80s. HR 80s. Weight [id number]. Decreased appetite w/intermittent nausea. Eating one meal/day. Medication compliant.The patient presents with non-ischemic heart failure. The patient's last LV ejection fraction was 20%. The patient is NYHA functional Class IV. This is stage D heart failure.Symptoms: worsened lower extremity edema, worsened dyspnea on exertion, worsened fatigue, worsened exercise intolerance, stable orthopnea and denies paroxysmal nocturnal dyspnea. Associated symptoms include chest pain and palpitations, but no syncope, no recent weight gain and no recent weight loss.Home Monitoring: The patient checks his weight regularly. Weight control has been good.Medications: the patient is adherent with his medication regimen. He denies medication side effects. [facility] [address] [place] Work Phone: Chief complaint Narrative - Reported CORKY DUENAS is being seen for a 6 month follow-up of cardiomyopathy, heart failure and a routine medication evaluation. [facility] Rober Michelle [address] [place] Work Phone: Chief complaint Narrative - Reported CORKY DUENAS is being seen for a 6 month follow-up of cardiomyopathy, heart failure and a routine medication evaluation. [facility] [address] DO Work Phone: Chief complaint Narrative - Reported Patient is here for a Valve & Structural Heart evaluation for mitral / tricuspid regurgitation following a referral by Dr. Diaz Canchola. GWENDOLYN Fraser, RN [facility] [address] Work Phone: Evaluation note No assessment information availa [facility] Work Phone: Evaluation note Diagnosis AICD (automatic cardioverter/defibrillator) present Automatic implantable cardiac defibrillator in situ Congestive cardiomyopathy (CMS/HCC) Other primary cardiomyopathies documented in this encounter [facility] Work Phone: Evaluation note* Diagnosis AICD (automatic cardioverter/defibrillator) present Automatic implantable cardiac defibrillator in situ Congestive cardiomyopathy (CMS/HCC) Other primary cardiomyopathies documented in this encounter [facility] Work Phone: History of Present illness Narrative* Referring providers: Structural Heart Team * [facility] emergency [facility] * EP: Lynne ([facility]) * Mr. Duenas is a 70 y/o M with a PMHx sig for stage D systolic HF/NICM/HFrEF with severe LV dysfunction (LVEF 20-25%) s/p TECHNICAL APPLICATIONS SPECIALIST-D with associated functional mitral regurgitation, hypothyroidism, and CKD who returns to the Advanced Heart Failure clinic for ongoing evaluation and management of his cardi omyopathy. * Interval hx: * Currently has chest pain. He rates it a 3/10. He said he has this twice a week. This will last 15-20 minutes and will resolve on its own. Patient has occasional palpitations, complaints of shortness of breath, dyspnea on exertion. Patient denies orthopnea, positive PND. No edema noted in BLE. Patient denies headaches. Patient has occasional dizziness. Denies recent falls. * Denies hospitalizations. Had one ED visit for dizziness a few weeks. He went to [facility]. * Reports full adherence to low sodium diet at home * TECHNICAL APPLICATIONS SPECIALIST-D was placed January [address] Mera Batista * PMHx: * stage D systolic HF/NICM/HFrEF with severe LV dysfunction (LVEF 20-25%) s/p TECHNICAL APPLICATIONS SPECIALIST-D with associated functional mitral regurgitation, hypothyroidism, CKD * SocHx: * Lives in [place], [place] with mother (in her 80s), he is but remains in contact with his ex-wifeand ex-brother in law. Two brothers also live with him and his mom. No pets. 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 * Tobacco: Quit 20-25 years ago, former cigarette smoker 2PPD x 8 years * EToH: Endorses heavy alcohol use in his younger years for about 10 years, quit due to desire for lifestyle change * Recreationals: Denies past or current use, is exposed to marijuana by his brothers who live with him * FamHx: * Most notable history for cancer. Denies other family history of CAD, KS, CHF, OHS, MCS or OHT * Mother: DM, CKD * Father: ?CVA, from brain cancer in his 40's [id number] Rober [address] [place] Work Phone: History of Present illness Narrative* Referring providers: Structural Heart Team * Gen emergency medical dispatcher: Stephen [facility] * EP: Lynne ([facility]) * Mr. Duenas is a 70 y/o M with a PMHx sig for stage C/D systolic HF/NICM/HFrEF with severe LV dysfunction (LVEF 20-25%) s/p TECHNICAL APPLICATIONS SPECIALIST-D with associated functional mitral regurgitation, hypothyroidism, and CKD who returns to the Advanced Heart Failure clinic for ongoing evaluation and management of his car diomyopathy. * Interval hx: * Currently has chest pain. He rates it a 3/10. He said he has this twice a week. This will last 15-20 minutes and will resolve on its own. Patient has occasional palpitations, complaints of shortness of breath, dyspnea on exertion. Patient denies orthopnea, positive PND. No edema noted in BLE. Patient denies headaches. Patient has occasional dizziness. Denies recent falls. * Denies hospitalizations. Had one ED visit for dizziness a few weeks. He went to [facility]. * Reports full adherence to low sodium diet at home * TECHNICAL APPLICATIONS SPECIALIST-D was placed January [address] Mera Batista * PMHx: * stage C/D systolic HF/NICM/HFrEF with severe LV dysfunction (LVEF 20-25%) s/p TECHNICAL APPLICATIONS SPECIALIST-D with associatedfunctional mitral regurgitation, hypothyroidism, CKD * SocHx: * Lives in [place], [place] with mother (in her 80s), he is but remains in contact with his ex-wifeand ex-brother in law. Two brothers also live with him and his mom. No pets. 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 * Tobacco: Quit 20-25 years ago, former cigarette smoker 2PPD x 8 years * EToH: Endorses heavy alcohol use in his younger years for about 10 years, quit due to desire for lifestyle change * Recreationals: Denies past or current use, is exposed to marijuana by his brothers who live with him * FamHx: * Most notable history for cancer. Denies other family history of CAD, KS, CHF, OHS, MCS or OHT * Mother: DM, CKD * Father: ?CVA, from brain cancer in his 40's [id number]-Berjnpfu SJW 260 DO Work Phone: History of Present illness Narrative* He is here for electrophysiology evaluation * The patient and mother are here to discuss heart failure device. * He has no specific arrhythmia symptoms. * The patient denies any lightheadedness, near syncope, syncope, palpitation, chest discomfort, orthopnea, PND, or edema. * He has dyspnea with mild to moderate exertion, and this is stable. * Overall, he feels good after his biv device implant. * The device site is well-healed and unchanged. The patient denies any redness, swelling, or drainage * See ROS, PMH, FMH, and surgical history for details. * Personal review of ECG and cardiac data reviewed since 2019. * Outside records: * OV with HF service May 2021 * EP OV Jul 2020 * ECG Jul 2020 * Office visit with Dr. Mitchell May 2020 * Office visit with Dr. Mitchell February 2020 * Device Check: May 2020 * ECG: Today. Sinus tachycardia. Appropriate sensing and pacing. RAD> Corrected QT interval over 500 ms (paced) * Device check. Today:. [facility] HF A500 Q-device. 97% biventricular pacing. Less than 1% A. fib. Brief NSVT up to 200 bpm * Imp / Plan * Recurrent VT. Increase carvedilol. See orders. Prescription sent * Nonischemic cardiomyopathy, left bundle branch block, sinus bradycardia, and intermittent high-grade AV block/complete heart block status post biventricular defibrillator 2019. Chronic. Stable. * [facility] CD HF A5 BiV ICD. Stable. Chronic. Reviewed device check. Normal device function. Order device check. Alternate remote check with device clinic paired with EP office visit. Personally paired pt s device with [employer] pulse nabeel; troubleshooting of nabeel performed and called [facility] [employer] support for 20 minutes troubleshooting * Normal cors by catheterization. Ejection fraction 30% by myocardial perfusion scanning 2019. LVEF20% by echo 2020. [employer] 3C heart failure. Chronic. Stable. Reviewed medications. Increase beta-krystle as noted given recurrent VT. * Nonsustained ventricular tachycardia. Recurrent. Stable. Chronic. Reviewed medications and device check. Increase carvedilol and continue magnesium oxide. Prescription sent. * Hypothyroidism. Stable. Chronic. Reviewed medications. On replacement therapy * Chronic left bundle branch block * Valvular heart disease with severe mitral regurgitation by echocardiogram Dec 2019. Pulmonary hypertension. Chronic. Stable. * Hypertension benign, chronic, controlled. Stable. Reviewed medications. Increase beta-krystle as above. Refill * CKD stage III. Stable. Chronic. Follows with PCP * Overweight * Abnormal depression screening noted and reviewed with patient. Referred to primary physician for followup. * AHA recommendations for exercise, diet, and behavioral modification reviewed with pt. * The patient and I discussed the mechanism of arrhythmia, ventricular tachycardia, device check, depression screening tool, medications indications for and types of medications, discussion if and whatmedication refills needed, treatment options, risks, benefits, and imponderables. [employer]iation lifestyle changes and behavioral modification discussed. All questions answered in detail.Counseling over 50% visit regarding above. Patient appreciative of care. * Extended time of visit for troubleshooting remote monitor nabeel and pairing ICD and nabeel. -[facility] [employer] DO Work Phone: History of Present illness Narrative* Explosive Operator: Dr. Diaz Canchola * Patient is a pleasant 70 year-old male with previous medical history significant for hypertension, non-ischemic cardiomyopathy, s/p TECHNICAL APPLICATIONS SPECIALIST-D, who was referred for evaluation of mitral and tricuspid regurgitation. * Patient endorses progressively worsening dyspnea with minimal exertion (walking less than 1 block) and orthopnea. * NYHA: Class 3 * Frailty score: 0/5 * EKG: pacing rhythm * TTE: LVEF 20%, severe MR, severe TR, RVSP 54.5 mmHg * LUCAS: LVEF 15-20%, severe MR with central jet, severe TR * [facility] (): normal coronaries * Dental assessment: no significant signs of infection * STS Score: Risk of Mortality: * 5.448% * Renal Failure: * 3.520% * Permanent Stroke: * 1.338% * Prolonged Ventilation: * 14.742% * DSW Infection: * 0.105% * Reoperation: * 5.124% * Morbidity or Mortality: * 18.746% * Short Length of Stay: * 26.799% * Long Length of Stay: * 9.303% [id number]-[id number] [place] Work Phone: History of Present illness Narrative* Explosive Operator: Dr. Diaz Canchola * Patient is a pleasant 70 year-old male with previous medical history significant for hypertension, non-ischemic cardiomyopathy, s/p TECHNICAL APPLICATIONS SPECIALIST-D, who was referred for evaluation of mitral and tricuspid regurgitation. * Patient endorses progressively worsening dyspnea with minimal exertion (walking less than 1 block) and orthopnea. * NYHA: Class 3 * Frailty score: 0/5 * EKG: pacing rhythm * TTE: LVEF 20%, severe MR, severe TR, RVSP 54.5 mmHg * LUCAS: LVEF 15-20%, severe MR with central jet, severe TR * C (): normal coronaries * Dental assessment: no significant signs of infection * STS Score: Risk of Mortality: * 5.448% * Renal Failure: * 3.520% * Permanent Stroke: * 1.338% * Prolonged Ventilation: * 14.742% * DSW Infection: * 0.105% * Reoperation: * 5.124% * Morbidity or Mortality: * 18.746% * Short Length of Stay: * 26.799% * Long Length of Stay: * 9.303% [facility] [address] [place] Work Phone: Hospital Discharge instructions Additional Instructions Tylenol every 4 hours as needed for [facility] Work Phone: Summary Purpose Family History No Family History Records FoundUnknown Family Member Name Dates Details Family history of congestive heart failure: Mother(V17.49, Z82.49) Status:Active Family history of diabetes m ellitus: Mother(V18.0, Z83.3) Status:Active Family history of hypertensi on: Mother(V17.49, Z82.49) Status:Active FH: malignant neoplasm of br ain: Father(V16.8, Z80.8) Status:Active Unknown Family Member Name Dates Details Family history of congestive heart failure: Mother(V17.49, Z82.49) Status:Active Family history of diabetes m ellitus: Mother(V18.0, Z83.3) Status:Active Family history of hypertensi on: Mother(V17.49, Z82.49) Status:Active FH: malignant neoplasm of br ain: Father(V16.8, Z80.8) Status:Active Unknown Family Member Name Dates Details Family history of congestive heart failure: Mother(V17.49, Z82.49) Status:Active Family history of diabetes m ellitus: Mother(V18.0, Z83.3) Status:Active Family history of hypertensi on: Mother(V17.49, Z82.49) Status:Active FH: malignant neoplasm of br ain: Father(V16.8, Z80.8) Status:Active Unknown Family Member Name Dates Details Family history of congestive heart failure: Mother(V17.49, Z82.49) Status:Active Family history of diabetes m ellitus: Mother(V18.0, Z83.3) Status:Active Family history of hypertensi on: Mother(V17.49, Z82.49) Status:Active FH: malignant neoplasm of br ain: Father(V16.8, Z80.8) Status:Active Unknown Family Member Name Dates Details Family history of congestive heart failure: Mother(V17.49, Z82.49) Status:Active Family history of diabetes m ellitus: Mother(V18.0, Z83.3) Status:Active Family history of hypertensi on: Mother(V17.49, Z82.49) Status:Active FH: malignant neoplasm of br ain: Father(V16.8, Z80.8) Status:Active Unknown Family Member Name Dates Details Family history of congestive heart failure: Mother(V17.49, Z82.49) Status:Active Family history of diabetes m ellitus: Mother(V18.0, Z83.3) Status:Active Family history of hypertensi on: Mother(V17.49, Z82.49) Status:Active FH: malignant neoplasm of br ain: Father(V16.8, Z80.8) Status:Active Unknown Family Member Name Dates Details Family history of congestive heart failure: Mother(V17.49, Z82.49) Status:Active Family history of diabetes m ellitus: Mother(V18.0, Z83.3) Status:Active Family history of hypertensi on: Mother(V17.49, Z82.49) Status:Active FH: malignant neoplasm of br ain: Father(V16.8, Z80.8) Status:Active Relationship Condition Age at Onset Recorded Date/T mandie father Medical history unknown Unknown Not Specified Medical history unknown Unknown Unknown Family Member Name Dates Details Family history of congestive heart failure: Mother(V17.49, Z82.49) Status:Active Family history of diabetes m ellitus: Mother(V18.0, Z83.3) Status:Active Family history of hypertensi on: Mother(V17.49, Z82.49) Status:Active FH: malignant neoplasm of br ain: Father(V16.8, Z80.8) Status:Active Unknown Family Member Name Dates Details Family history of congestive heart failure: Mother(V17.49, Z82.49) Status:Active Family history of diabetes m ellitus: Mother(V18.0, Z83.3) Status:Active Family history of hypertensi on: Mother(V17.49, Z82.49) Status:Active FH: malignant neoplasm of br ain: Father(V16.8, Z80.8) Status:Active Unknown Family Member Name Dates Details Family history of congestive heart failure: Mother(V17.49, Z82.49) Status:Active Family history of diabetes m ellitus: Mother(V18.0, Z83.3) Status:Active Family history of hypertensi on: Mother(V17.49, Z82.49) Status:Active FH: malignant neoplasm of br ain: Father(V16.8, Z80.8) Status:Active Unknown Family Member Name Dates Details Family history of congestive heart failure: Mother(V17.49, Z82.49) Status:Active Family history of diabetes m ellitus: Mother(V18.0, Z83.3) Status:Active Family history of hypertensi on: Mother(V17.49, Z82.49) Status:Active FH: malignant neoplasm of br ain: Father(V16.8, Z80.8) Status:Active Unknown Family Member Name Dates Details Family history of congestive heart failure: Mother(V17.49, Z82.49) Status:Active Family history of diabetes m ellitus: Mother(V18.0, Z83.3) Status:Active Family history of hypertensi on: Mother(V17.49, Z82.49) Status:Active FH: malignant neoplasm of br ain: Father(V16.8, Z80.8) Status:Active Unknown Family Member Name Dates Details Family history of congestive heart failure: Mother(V17.49, Z82.49) Status:Active Family history of diabetes m ellitus: Mother(V18.0, Z83.3) Status:Active Family history of hypertensi on: Mother(V17.49, Z82.49) Status:Active FH: malignant neoplasm of br ain: Father(V16.8, Z80.8) Status:Active Unknown Family Member Name Dates Details Family history of congestive heart failure: Mother(V17.49, Z82.49) Status:Active Family history of diabetes m ellitus: Mother(V18.0, Z83.3) Status:Active Family history of hypertensi on: Mother(V17.49, Z82.49) Status:Active FH: malignant neoplasm of br ain: Father(V16.8, Z80.8) Status:Active Unknown Family Member Name Dates Details Family history of congestive heart failure: Mother(V17.49, Z82.49) Status:Active Family history of diabetes m ellitus: Mother(V18.0, Z83.3) Status:Active Family history of hypertensi on: Mother(V17.49, Z82.49) Status:Active FH: malignant neoplasm of br ain: Father(V16.8, Z80.8) Status:Active Unknown Family Member Name Dates Details Family history of congestive heart failure: Mother(V17.49, Z82.49) Status:Active Family history of diabetes m ellitus: Mother(V18.0, Z83.3) Status:Active Family history of hypertensi on: Mother(V17.49, Z82.49) Status:Active FH: malignant neoplasm of br ain: Father(V16.8, Z80.8) Status:Active Unknown Family Member Name Dates Details Family history of congestive heart failure: Mother(V17.49, Z82.49) Status:Active Family history of diabetes m ellitus: Mother(V18.0, Z83.3) Status:Active Family history of hypertensi on: Mother(V17.49, Z82.49) Status:Active FH: malignant neoplasm of br ain: Father(V16.8, Z80.8) Status:Active Unknown Family Member Name Dates Details Family history of congestive heart failure: Mother(V17.49, Z82.49) Status:Active Family history of diabetes m ellitus: Mother(V18.0, Z83.3) Status:Active Family history of hypertensi on: Mother(V17.49, Z82.49) Status:Active FH: malignant neoplasm of br ain: Father(V16.8, Z80.8) Status:Active Unknown Family Member Name Dates Details Family history of congestive heart failure: Mother(V17.49, Z82.49) Status:Active Family history of diabetes m ellitus: Mother(V18.0, Z83.3) Status:Active Family history of hypertensi on: Mother(V17.49, Z82.49) Status:Active FH: malignant neoplasm of br ain: Father(V16.8, Z80.8) Status:Active Relationship Condition Age at Onset Recorded Date/T mandie father Malignant neoplasm of brain Unknown Unknown Not Specified Dialysis patient Unknown Unknown Family Member Name Dates Details Family history of congestive heart failure: Mother(V17.49, Z82.49) Status:Active Family history of diabetes m ellitus: Mother(V18.0, Z83.3) Status:Active Family history of hypertensi on: Mother(V17.49, Z82.49) Status:Active FH: malignant neoplasm of br ain: Father(V16.8, Z80.8) Status:Active Advance Directives No Advanced Directives Records Found Advance Directive Response Recorded Date/ Time Advance Directives No August 22 0 1:30pm Advance Directive Response Recorded Date/ Time Advance Directives No August 22 0 12:30pm Documents on File Type Date Recorded 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 Chief Complaint and Reason for Visit Chief Complaint i34.0 Chief Complaint i34.0 I34.0 Chief Complaint sent by Chief Complaint sent by Abdominal Pain, GI Bleed Chief Complaint sent by Abdominal Pain, GI Bleed Abdominal Pain, GI Bleed Chief Complaint sent by Abdominal Pain, GI Bleed Abdominal Pain, GI Bleed R10.9 Reason for Referral Specialty Diagnoses / Procedures Referred By Kamala t Referred To Contact Cardiology Diagnoses AICD (automatic cardioverter/defibrillator) present Congestive cardiomyopathy (CMS/HCC) Procedures Cardiac Device Check - Remote Mera Batista MD [address] [facility] Medical Office [address], [address] [place] [address] Referral ID Status Reason Start Date Expiration Date Visits Requested Visits Authorized [id number] Pending Review Perform Procedure 02/04/2023 02/04/2024 1 1 Additional Source Comments (unrecognized sect ion and content) No Status Records FoundNo Status Records FoundNo Status Records FoundNo Status Records FoundNo Status Records FoundNo Status Records FoundNo Status Records FoundNo Status Records Found INFORMATION SOURCE (unrecogn ized section and content) DATE CREATED AUTHOR 09/12/2018 [facility] DATE CREATED AUTHOR AUTHOR'S ORGANIZ ATION 09/14/2021 [employer] DATE CREATED AUTHOR AUTHOR'S ORGANIZ ATION 03/15/2022 [facility] DATE CREATED AUTHOR AUTHOR'S ORGANIZ ATION 08/18/2022 [facility] DATE CREATED AUTHOR AUTHOR'S ORGANIZ ATION 08/20/2022 [facility] DATE CREATED AUTHOR AUTHOR'S ORGANIZ ATION 02/09/2023 [facility] DATE CREATED AUTHOR AUTHOR'S ORGANIZ ATION 02/22/2023 [facility] DATE CREATED AUTHOR AUTHOR'S ORGANIZ ATION 03/18/2023 [facility] EPIC Care Teams (unrecognized sec tion and content) Team Status: Inactive Member Role Status Dates Juan Manuel Albarran II MD Primary Care Provider Active Cristobal Garcia MD Attending Provider Active Team Status: Active Member Role Status Dates Juan Manuel Albarran II MD Primary Care Provider Active Team Status: Inactive Member Role Status Dates Juan Manuel Albarran II MD Primary Care Provider Active Marc Rosario MD Emergency Provider Active Team Status: Inactive Member Role Status Dates Juan Manuel Albarran II MD Primary Care Provider Active Beau Goldberg MD Attending Provider Active Clinical Trials Specialist Relationship Specialty Start Date End Date Juan Manuel Albarran MD [address] [place] [address] PCP - General 07/31/22 Clinical Trials Specialist Relationship Specialty Start Date End Date Juan Manuel Albarran MD [address] [place] [address] PCP - General 07/31/22 Goals (unrecognized section and content) Goals may be documented in a n alternate sectionGoals may be documented in an alternate sectionGoals may be documented in an alternate sectionGoals may be documented in an alternate section <item> Privacy Markings (unrecogniz ed section and content) Section Author: Coleen Contreras PROHIBITION ON REDISCLOSURE OF CONFIDENTIAL INFORMATION This notice accompanies a disclosure of information concerning a client made to you with the consent of such client. Reason for Visit (unrecogniz ed section and content) Specialty Diagnoses / Procedures Referred By Contac t Referred To Contact Cardiology Diagnoses AICD (automatic cardioverter/defibrillator) present Congestive cardiomyopathy (CMS/HCC) Procedures Cardiac Device Check - Remote Mera Batista MD [address] [facility] Medical Office [facility], [address] [place] [address] Referral ID Status Reason Start Date Expiration Date Visits Requested Visits Authorized [id number] Pending Review Perform Procedure 02/04/2023 02/04/2024 1 1 FOR RECORDS PERTAINING TO PATIENTS WHO ARE OR HAVE BEEN ENROLLED IN A CHEMICAL DEPENDENCY/SUBSTANCEABUSE PROGRAM, SOME INFORMATION MAY BE OMITTED. This clinical summary was aggregated from multiple sources. Caution should be exercised in using it in the provision of clinical care. This summary normalizes information from multiple sources, and as a consequence, information in this document may materially change the coding, format and clinical context of patient data. In addition, data may be omitted in some cases. CLINICAL DECISIONS SHOULD BE BASED ON THE PRIMARY CLINICAL RECORDS. [facility] [employer] [facility] provides no warranty or guarantee of the accuracy or completeness of information in this document.
--- NOTE | 2023-04-07 16:14 | CT_ITS ---
The [address] [address] Patient Name: CORKY DUENAS MRN: [id number] date: 1950 Sex: M Assigned Patient Location: ER Current Patient Location: ER Accession/Order Number: [id number] Exam Date: 04/07/2023 16:33 Report Date: 04/07/2023 17:15 At the request of: THUY WALKER Procedure: CT head/brain wo con EXAM: CT head/brain wo con HISTORY: fall COMPARISON: CT of the head from 03/03/2023. TECHNIQUE: CT was obtained through the head without contrast. FINDINGS: Diffuse ventricular and sulcal prominence consistent with age-related involutional change. No herniation or hydrocephalus. The nick matter/white matter differentiation is maintained throughout. Calcification at the lentiform nuclei bilaterally. No CT evidence of contemporary infarction. No acute intracranial hemorrhage or parenchymal mass. The calvarium and skull base are intact. The pneumatized portions of the skull are clear. Left lateral scalp contusion. CT/CT head/brain wo con IMPRESSION: 1. No acute intracranial abnormality. 2. Left lateral scalp contusion. Electronically authenticated by: ARELIS CURTIS Date: 04/07/2023 17:15
--- NOTE | 2023-04-07 16:14 | CT_ITS ---
[address] [address] Patient Name: CORKY DUENAS MRN: [id number] date: 1950 Sex: M Assigned Patient Location: ER Current Patient Location: ER Accession/Order Number: [id number] Exam Date: 04/07/2023 16:33 Report Date: 04/07/2023 17:21 At the request of: THUY WALKER Procedure: CT cervical spine wo con EXAM: CT cervical spine wo con HISTORY: Fall, closed head injury, scalp laceration COMPARISON: CT chest 03/17/2023. TECHNIQUE: CT Cervical spine without IV contrast. Coronal and sagittal reformations were performed. Dose reduction techniques were achieved by using automated exposure control and/or adjustment of mA and/or kV according to patient size and/or use of iterative reconstruction technique. FINDINGS: Osseous: The vertebral body heights are maintained. No fracture. Soft tissues: Bilateral pleural effusions. Partially visualized opacity at the right upper lobe. Left-sided cardiac pacing generator leads. Disc levels: C2-C3: Mild left foraminal stenosis. Mild left facet arthrosis. C3-C4: Broad-based posterior disc bulge/osteophyte complex. Moderate left and mild right foraminal stenosis. Mild left facet arthrosis. Moderate spinal canal stenosis. C4-C5: Base posterior disc bulge/osteophyte complex. Mild spinal canal stenosis. Mild bilateral foraminal stenosis at fusion of the facets. C5-C6: Broad-based posterior disc bulge/osteophyte complex. Mild spinal canal stenosis. Moderate right foraminal stenosis. Mild left foraminal stenosis. Moderate left and mild right facet arthrosis. C6-C7: Broad-based posterior disc bulge/osteophyte complex. Mild spinal canal stenosis. Moderate bilateral foraminal stenosis. C7-T1: No disc protrusion, spinal canal stenosis, or neural foraminal stenosis. CT/CT cervical spine wo con IMPRESSION: 1. No cervical spine fracture or subluxation. 2. Degenerative changes of the cervical spine as above. 3. Bilateral pleural effusions. Right upper lobe opacity favored to represent pneumonia is partially visualized. Electronically authenticated by: ARELIS CURTIS Date: 04/07/2023 17:21
--- NOTE | 2023-04-07 16:14 | ECG_ITS ---
The 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
--- NOTE | 2023-04-07 16:20 | ED.GENADUL1 ---
HPI - General Adult General Chief complaint: Fall Stated complaint: fall Time Seen by Provider: 04/07/23 16:14 Source: patient Mode of arrival: ambulance Limitations: no limitations History of Present Illness HPI narrative: Patient is a very pleasant 72-year-old male who is presenting to the Emergency Room After he has fallen at home. Patient was going up the steps, patient was lightheaded, dizzy, and fell backwards hitting the back left aspect of his upper scalp. Patient has a known laceration, this not been evaluated yet. Bleeding has been controlled. Patient only takes a baby aspirin a daily, he does not take any blood thinners. Patient does have a mild headache, however he rates as 7/10. Patient does have mild neck pain as well, patient's in a cervical collar. Cervical collar was applied by EMS staff, they also have IV established. Patient did not lose consciousness. Patient is a vision or hearing changes. Patient did feel slightly lightheaded dizzy throughout the day, no vertigo. He said no chest pain or shortness of breath. No Abdominal pain, nausea vomiting, no other acute complaints. Patient Does have a pacemaker/different glitter. Patient has no other acute complaints at this time. No recent head injury, no recent illnesses. All systems are negative except as noted/marked. All systems reviewed and otherwise negative. . Nurses note and vital signs reviewed and patient is not hypoxic. General: The patient appears well and in no apparent distress. Patient is resting comfortably on cart. Patient is not toxic, lethargic, or listless Skin: Warm, dry, no pallor noted. There is no rash noted. No petechiae, purpura. Head: Normocephalic, Patient does have a scalp laceration is not been completely evaluated with. Patient had will be cleaned with peroxide, we'll reevaluate scalp laceration, please see suture/staple/procedure note. Patient does have midline C3-C7 tenderness to palpation is mild, no step-offs. Patient has bilateral mild tenderness to palpation to the paracervical soft tissues well, right greater than left. Patient will remain in a cervical collar. Eye: Normal conjunctiva, no drainage, EOMI. PERRL Ears, Nose, Mouth, and Throat: oral mucosa is moist. Nares patent. Mouth without vesicles. Patient has a hearing aid in his left ear. Cardiovascular: Regular Rate and Rhythm, no murmur, gallop, rub. Patient has a pacemaker to his left upper chest wall. Respiratory: Patient is in no distress, no accessory muscle use, lungs are clear to auscultation, no wheezing, rales or rhonchi Back: non-tender, no CVA tenderness bilaterally to percussion. No CT LS midline pain GI: soft, no tenderness to palpation, no masses appreciated. No rebound, guarding, or rigidity noted. No flank pain bilateral, No distention Musculoskeletal: Patient has full range of motion of all of the extremities, no motor, sensory, or focal neurological deficits Neurological: A&O x3, Patient does no recent holiday, name, place. normal speech; No strokelike signs or symptoms. Psychiatric: Cooperative Related Data Home Medications Medication Instructions Recorded Confirmed levothyroxine 150 mcg tablet 200 mcg PO DAILY 12/01/22 04/07/23 furosemide 20 mg tablet 20 mg PO DAILY 04/07/23 04/07/23 meclizine 25 mg tablet 25 mg PO TID 04/07/23 04/07/23 mirtazapine 7.5 mg tablet 7.5 mg PO DAILY 04/07/23 04/07/23 Previous Rx's Medication Instructions Recorded carvedilol 6.25 mg tablet 3.125 mg (1/2 x 6.25 mg) PO BID 30 03/18/23 days #30 tabs levofloxacin 750 mg tablet 750 mg PO Q48H 5 days #3 tabs 03/18/23 Allergies Allergy/AdvReac Type Severity Reaction Status Date / Time No Known Drug Allergies Allergy Verified 04/07/23 15:[address] [facility] Medical History (Updated 04/07/23 @ 19:23 by Thuy Antonio MD) Bacteremia due to Klebsiella pneumoniae ?R78.81 - Bacteremia (ICD-10) ?B96.1 - Klebsiella pneumoniae [k. pneumoniae] as the cause of diseases classified elsewhere (ICD-10) CKD (chronic kidney disease) stage 4, GFR 15-29 ml/min ?N18.4 - Chronic kidney disease, stage 4 (severe) (ICD-10) CAD (coronary artery disease) ?I25.10 - Atherosclerotic heart disease of [place] coronary artery without angina pectoris (ICD-10) COPD with acute exacerbation ?J44.1 - Chronic obstructive pulmonary disease with (acute) exacerbation (ICD-10) Polyposis of colon ?K63.5 - Polyp of colon (ICD-10) HTN (hypertension) ?I10 - Essential (primary) hypertension (ICD-10) COPD (chronic obstructive pulmonary disease) with emphysema ?J43.9 - Emphysema, unspecified (ICD-10) Hypothyroidism ?E03.9 - Hypothyroidism, unspecified (ICD-10) HFrEF (heart failure with reduced ejection fraction) ?I50.20 - Unspecified systolic (congestive) heart failure (ICD-10) Sepsis ?A41.9 - Sepsis, unspecified organism (ICD-10) Cardiac defibrillator in place ?Z95.810 - Presence of automatic (implantable) cardiac defibrillator (ICD-10) Myocardial infarction ?I21.9 - Acute myocardial infarction, unspecified (ICD-10) Right upper lobe pneumonia ?J18.9 - Pneumonia, unspecified organism (ICD-10) Vertigo ?R42 - Dizziness and giddiness (ICD-10) Pleural effusion ?J90 - Pleural effusion, not elsewhere classified (ICD-10) Congestive heart failure ?I50.9 - Heart failure, unspecified (ICD-10) Surgical History (Updated 03/03/23 @ 15:21 by Kelly Rico NP) H/O cardiac catheterization ?Z98.890 - Other specified postprocedural states (ICD-10) History of colonoscopy ?Z98.890 - Other specified postprocedural states (ICD-10) History of esophagogastroduodenoscopy (EGD) ?Z98.890 - Other specified postprocedural states (ICD-10) History of implantable cardioverter-defibrillator (ICD) placement ?Z95.810 - Presence of automatic (implantable) cardiac defibrillator (ICD-10) History of cholecystectomy ?Z90.49 - Acquired absence of other specified parts of digestive tract (ICD-10) History of appendectomy ?Z90.49 - Acquired absence of other specified parts of digestive tract (ICD-10) Family History Mother Family history of CHF (congestive heart failure) Family history of diabetes mellitus Social History (Updated 03/03/23 @ 14:48 by Jany Enciso) Within the past year, how often did you have a drink containing alcohol: never Score interpretation: A score less than 4 is consistent with normal alcohol consumption. Smoking status: Former smoker Previous occupational history: [employer] Known occupational exposures/hazards: No Highest level of school completed/degree received: high school graduate Are you now , , , , never or living with a partner: In a typical week, how many times do you talk on the telephone with family, friends, or neighbors: 3 or more times per week How often do you get together with friends or relatives: 3 or more times per week How often do you attend scientology or mandaen services: never Do you belong to any clubs or organizations such as scientology groups unions, [employer] or athletic groups, or school groups: no Total score: 1 Score interpretation: A score of less than or equal to 1 indicates the most socially isolated. Little interest or pleasure in doing things: not at all Feeling down, depressed, or hopeless: not at all Feel stressed/tense/nervous/anxious/difficulty sleeping: only a little Due to disability, difficulty making decisions: No Do you think of yourself as: straight/heterosexual Gender Identity: male Exam Constitutional Vital Signs, click to edit/add: Last Vital Signs Temp 95.4 F L 04/07/23 15:51 Pulse 97 H 04/07/23 15:51 Resp 18 04/07/23 15:51 BP 102/81 04/07/23 17:30 Pulse Ox 98 04/07/23 15:51 O2 Del Method Room Air 04/07/23 15:51 Course Vital Signs Vital signs: Vital Signs Temperature 95.4 F L 04/07/23 15:51 Pulse Rate 97 H 04/07/23 15:51 Respiratory Rate 18 04/07/23 15:51 Blood Pressure 98/78 04/07/23 15:51 Pulse Oximetry 98 04/07/23 15:51 Oxygen Delivery Method Room Air 04/07/23 15:51 Temperature 95.4 F L 04/07/23 15:51 Pulse Rate 97 H 04/07/23 15:51 Respiratory Rate 18 04/07/23 15:51 Blood Pressure 102/81 04/07/23 17:30 Pulse Oximetry 98 04/07/23 15:51 Oxygen Delivery Method Room Air 04/07/23 15:51 Medical Decision Making MDM Narrative Medical decision making narrative: Procedure note: Patient's scalp laceration was cleaned with Hibiclens and peroxide. Patient has a small 1 cm laceration to the left parietal area, linear, only approximately 2 or 3 mm deep. Patient had 2 dirk placed. Laceration repair done by Dr. Antonio/Sherry Ramos CNP.. Patient was cleaned, prepped, draped in normal sterile fashion. Patient was cleaned with Shur-Clens and peroxide, patient was copiously irrigated with sterile water, approximately 20 mL. Using Dirk, patient had 2 simple dirk placed. Patient tolerated procedure well without difficulty. Patient was cleaned; bacitracin and dry dressing was placed. CT of the brain showed no acute findings, CT of the cervical spine showed no acute surgical findings, did mention ongoing bilateral pleural effusions with questionable opacity for pneumonia. A separate chest x-ray was done, That shows no new acute pleural effusions or no new acute infiltrate. CT reading below. [facility] [place] [id number] XRay Report Signed Patient: CORKY DUENAS MR#: [id number] : 1950 Acct:[id number] Age/Sex: 72 / M ADM Date: 04/07/23 Loc: ER Attending Dr: Ordering Physician: Thuy Antonio Date of Service: 04/07/23 Procedure(s): XR chest 2V Accession Number(s): [id number] cc: JAN ALBARRAN ; Thuy Antonio~ [facility] [place] [id number] Patient Name: CORKY DUENAS MRN: [id number] date: 1950 Sex: M Assigned Patient Location: ED.MAIN Current Patient Location: ER Accession/Order Number: [id number] Exam Date: 04/07/2023 18:10 Report Date: 04/07/2023 19:10 At the request of: THUY ANTONIO Procedure: XR chest 2V EXAMINATION: XR chest 2V, , 04/07/2023 6:10 PM EST INDICATION: fall HISTORY: Ordering Provider Reason for Exam: fall Technologist Note: Additional: COMPARISON: Chest dated 08/14/2022. TECHNIQUE: Chest x-ray: Two views. FINDINGS: The heart size is normal. Cardiac pacemaker is seen in place. Small right pleural effusion is seen with likely adjacent atelectasis versus small consolidation. Hazy interstitial prominence and airspace opacities are again seen in the lungs bilaterally, most pronounced in the right upper lobe. No obvious pneumothorax is seen. XR/XR chest 2V IMPRESSION: Small right pleural effusion is seen with likely adjacent atelectasis versus small consolidation. Hazy interstitial prominence and airspace opacities are again seen in the lungs bilaterally, most pronounced in the right upper lobe. MDM Patient ambulated with no significant difficulty. Patient is slightly unsteady, but says this is his baseline. Patient normally walks around at home with his 2 feet. Patient did not use a cane or walker. This was suggested to help with balance if needed. Patient has an appointment with Dr. Small in the next month, patient will call Dr. Albarran tomorrow to move up appointment. Patient is aware dirk are to be removed in 10-12 days. See procedure note, 2 dirk were placed. Education on using bacitracin, close head injury, and using ice and taking gecb-ipa-sghxfst medication to help with pain was discussed at well at bedside with patient and his tp-jbrntcp-qo-law. Patient's qb-oerwzpb-bb-law's at bedside, he was with him today and witnessed the fall. Xrwgvvn-cm-ere stated he was going up the steps, he lost his balance slightly leaning forward on the 3rd step and caught himself with his hands. Patient's feet was not completely on the steps, but the rffiegb-qb-sjh at bedside told him to push up with his hands which patient did. Patient's utatulc-ba-kca did not notice that his feet were barely standing on the step, so when patient pushed himself up he fell backwards hitting the left side of his head. Ovehvve-kr-wxo says was his fault that the patient had fallen. Patient walked in the [place] prior to discharge. Patient feels better. Patient wants to be discharged. Education on falls, head injury, scalp lacerations were discussed. Patient feels safe going home and sizecls-sr-afe at bedside agrees as well. Lab Data Labs: Lab Results 04/07/23 Range/Units 16:32 WBC 4.7 (4.0-11.0) 10^3/uL RBC 4.15 L (4.70-6.10) 10^6/uL Hgb 13.2 L (14.0-18.0) g/dL Hct 43.3 (42.0-54.0) % MCV 104.3 H (80.0-94.0) fL MCH 31.8 (25.9-34.0) pg MCHC 30.5 (29.9-35.2) g/dL RDW 17.0 H (11.0-15.0) % Plt Count 160 (150-450) 10^3/uL MPV 11.1 (9.5-13.5) fL Neut % (Auto) 70.1 (43.0-75.0) % Lymph % (Auto) 19.7 L (20.5-60.0) % [place] % (Auto) 4.9 (1.7-12.0) % Eos % (Auto) 3.0 (0.9-7.0) % Baso % (Auto) 1.7 (0.2-2.0) % Neut # (Auto) 3.3 (1.4-6.5) 10^3/uL Lymph # (Auto) 0.9 L (1.2-3.8) 10^3/uL [place] # (Auto) 0.2 L (0.3-0.8) 10^3/uL Eos # (Auto) 0.1 (0.0-0.7) 10^3/uL Baso # (Auto) 0.1 (0.0-0.1) 10^3/uL Abs Immat Gran (auto) 0.03 (0.00-0.03) 10^3/uL Imm/Tot Granulo (auto) 0.6 H (0.0-0.5) % Sodium 140 (136-145) mmol/L Potassium 3.8 (3.5-5.1) mmol/L Chloride 104 (98-107) mmol/L Carbon Dioxide 25.0 (21.0-32.0) mmol/L Anion Gap 14.8 BUN 22.0 H (7.0-18.0) mg/dL Creatinine 1.72 H (0.70-1.30) mg/dL Est GFR ( Amer) 48 L (>=60) Est GFR (Non-Af Amer) 40 L (>=60) BUN/Creatinine Ratio 12.8 Glucose 125 H (74-106) mg/dL Calcium 8.6 (8.5-10.1) mg/dL Total Bilirubin 1.4 H (0.2-1.0) mg/dL AST 25 (15-37) U/L ALT 19 (16-63) U/L Alkaline Phosphatase 77 (46-116) U/L Troponin I High Sens 16.3 (4.0-76.1) pg/mL Total Protein 6.6 (6.4-8.2) g/dL Albumin 2.7 L (3.4-5.0) g/dL Globulin 3.9 g/dL Albumin/Globulin Ratio 0.7 ECG Data Attestation: I personally reviewed and interpreted this ECG as follows: (EKG interpretation. Paced rhythm at 98 beats a minute. Normal axis deviation. Artifact noted. QTC of 499.) Discharge Plan Discharge Chief Complaint: Fall Clinical Impression: Head injury, Fall, Laceration of scalp Patient Disposition: Home, Self-Care Prescriptions / Home Meds: No Action furosemide 20 mg tablet 20 mg PO DAILY mirtazapine 7.5 mg tablet 7.5 mg PO DAILY meclizine 25 mg tablet 25 mg PO TID levothyroxine 150 mcg tablet 200 mcg PO DAILY carvedilol 6.25 mg Tablet 3.125 mg PO BID 30 Days Qty: 30 0RF levofloxacin 750 mg tablet 750 mg PO Q48H 5 Days Qty: 3 0RF Instructions: Laceration (DC), Fall Prevention for Older Adults (ED), Head Injury (ED) Additional Instructions: Souris are to be removed in 10-12 days. Use topical antibiotic ointment 3 or 4 times a day to your scalp laceration to help with wound healing and prevent infection. Use Tylenol Motrin as needed for aches and pains along with headaches, especially tomorrow. Do not use heat, use ice 20 minutes on, 20 minutes off as discussed. Increase fluids at home. Called Dr. Albarran tomorrow to make an appointment for the next 10-12 days for staple rremoval and reevaluation. Stand Alone Forms: Portal Instructions Referrals: JAN ALBARRAN [Primary Care Provider] - 1 week
[2023-04-07 16:42] LABS: Basophils Absolute Auto 0.1 10^3/uL (0.0-0.1); Basophils Percent Auto 1.7 % (0.2-2.0); Eosinophils Absolute Auto 0.1 10^3/uL (0.0-0.7); Hematocrit 43.3 % (42.0-54.0); Hemoglobin 13.2 g/dL (14.0-18.0); Immature Granulocytes Abs Auto 0.03 10^3/uL (0.00-0.03); Immature Granulocytes Pct Auto 0.6 % (0.0-0.5); Lymphocytes Absolute Auto 0.9 10^3/uL (1.2-3.8); Lymphocytes Percent Auto 19.7 % (20.5-60.0); Mean Corpuscular HGB Conc 30.5 g/dL (29.9-35.2); Mean Corpuscular Hemoglobin 31.8 pg (25.9-34.0); Mean Corpuscular Volume 104.3 fL (80.0-94.0); Mean Platelet Volume 11.1 fL (9.5-13.5); Monocytes Absolute Auto 0.2 10^3/uL (0.3-0.8); Monocytes Percent Auto 4.9 % (1.7-12.0); Neutrophils Absolute Auto 3.3 10^3/uL (1.4-6.5); Neutrophils Percent Auto 70.1 % (43.0-75.0); Platelet Count 160 10^3/uL (150-450); Red Blood Count 4.15 10^6/uL (4.70-6.10); White Blood Count 4.7 10^3/uL (4.0-11.0)
[2023-04-07] MEDS: ADACEL DIPH,PERTUSS(ACELL),TET VAC/PF 0.5 ML ADULT SYRINGE IM (16:49)
[2023-04-07] MEDS: FENTANYL CITRATE/PF 100 MCG/2 ML VIAL 25 MCG IV (16:49)
[2023-04-07 17:02] LABS: Alanine Aminotransferase 19 U/L (16-63); Albumin Globulin Ratio 0.7; Albumin Level 2.7 g/dL (3.4-5.0); Alkaline Phosphatase 77 U/L (46-116); Anion Gap 14.8; Aspartate Amino Transferase 25 U/L (15-37); BUN Creatinine Ratio 12.8; Bilirubin Total 1.4 mg/dL (0.2-1.0); Calcium 8.6 mg/dL (8.5-10.1); Chloride 104 mmol/L (98-107); Estimated GFR (African America 48 (>=60); Estimated GFR (Non-African Ame 40 (>=60); Globulin 3.9 g/dL; Glucose 125 mg/dL (74-106); Potassium 3.8 mmol/L (3.5-5.1); Sodium 140 mmol/L (136-145); Total Protein 6.6 g/dL (6.4-8.2); Troponin I High Sensitivity 16.3 pg/mL (4.0-76.1)
--- NOTE | 2023-04-07 17:46 | XR_ITS ---
The [address] [address] Patient Name: CORKY DUENAS MRN: [id number] date: 1950 Sex: M Assigned Patient Location: ED.MAIN Current Patient Location: ER Accession/Order Number: [id number] Exam Date: 04/07/2023 18:10 Report Date: 04/07/2023 19:10 At the request of: THUY WALKER Procedure: XR chest 2V EXAMINATION: XR chest 2V, , 04/07/2023 6:10 PM EST INDICATION: fall HISTORY: Ordering Provider Reason for Exam: fall Technologist Note: Additional: COMPARISON: Chest dated 08/14/2022. TECHNIQUE: Chest x-ray: Two views. FINDINGS: The heart size is normal. Cardiac pacemaker is seen in place. Small right pleural effusion is seen with likely adjacent atelectasis versus small consolidation. Hazy interstitial prominence and airspace opacities are again seen in the lungs bilaterally, most pronounced in the right upper lobe. No obvious pneumothorax is seen. XR/XR chest 2V IMPRESSION: Small right pleural effusion is seen with likely adjacent atelectasis versus small consolidation. Hazy interstitial prominence and airspace opacities are again seen in the lungs bilaterally, most pronounced in the right upper lobe. Electronically authenticated by: SRIKANTH ORTIZ Date: 04/07/2023 19:10
[2023-04-07] MEDS: BACITRACIN 0.9 GM PACKET 1 PACKET TOPICAL (19:41)
== END 2023-04-07 20:01 | disposition home or self-care (01) ==
PROVIDERS: Emergency Provider Emergency Medicine; PCP Internal Medicine
DX: S01.01XA Laceration without foreign body of scalp, initial encounter (principal); W10.8XXA Fall (on) (from) other stairs and steps, initial encounter; R42 Dizziness and giddiness; Z79.82 Long term (current) use of aspirin; M54.2 Cervicalgia; N18.4 Chronic kidney disease, stage 4 (severe); I25.10 Atherosclerotic heart disease of native coronary artery without angina pectoris; J44.9 Chronic obstructive pulmonary disease, unspecified; Z86.010 Personal history of colon polyps; E03.9 Hypothyroidism, unspecified; S09.90XA Unspecified injury of head, initial encounter; I13.0 Hypertensive heart and chronic kidney disease with heart failure and stage 1 through stage 4 chronic kidney disease, or unspecified chronic kidney disease; I50.20 Unspecified systolic (congestive) heart failure; I25.2 Old myocardial infarction; Z95.810 Presence of automatic (implantable) cardiac defibrillator; Z90.49 Acquired absence of other specified parts of digestive tract; Z87.891 Personal history of nicotine dependence; Z79.899 Other long term (current) drug therapy; Z23 Encounter for immunization
CPT/HCPCS: 12001; 36415; 70450; 71046; 72125; 80053; 84484; 85025; 90471; 90715; 93005; 96374; 99285; J3010

== ENCOUNTER 2023-05-08 11:53 | Inpatient (IN) | payer MEDICARE, SELFPAY ==
[2023-05-08] VITALS (26 sets, daily range): BP systolic 94–120; BP diastolic 54–90; PULSE 83–99; RESP 18–24; TEMP 36.4–36.7; O2SAT 86–100; BMI 24.5; BMI 23.6
--- NOTE | 2023-05-08 11:59 | ECG_ITS ---
The [facility] Test Date: 2023-05-08 Pat Name: CORKY DUENAS Department: Room: 2291 Gender: Male Media Job Titles: : 1950 Requested By: JAN RIZZO Order Number: [id number] Reading MD: JELLY VASQUEZ Measurements Intervals [place] Rate: 95 P: 90 [place]: 134 QRS: 109 QRSD: 154 T: -50 QT: 418 QTc: 471 Interpretive Statements [id number] Electronic ventricular pacemaker 9120 atypical ECG Compared to ECG 04/07/2023 15:51:27 No significant changes Electronically Signed On 05-10-2023 5:54:32 EST by JELLY VASQUEZ
--- NOTE | 2023-05-08 12:01 | ED_ITS ---
HPI - Chest Pain General Chief Complaint: Chest Pain Stated Complaint: CHEST PAIN/ SHORTNESS OF BREATH Time Seen by Provider: 05/08/23 12:01 History of Present Illness HPI narrative: This patient came from home. He lives alone. He has an elevator at his home so he does not have to use the steps. His visiting nurse told him he should go to the hospital today because he was having difficulty breathing last night because his legs are swollen. Per his street, he stopped taking his water pill at his physician's advice 2 and half weeks ago. On the other hand his nurse has been telling him to drink extra water. He is not having any chest pain. He does not have oxygen at home. He does not have any headache now. He says his legs have been was not swollen before he says they feel very very heavy. He is not running a fever at home that he is aware of. Related Data Home Medications Medication Instructions Recorded Confirmed levothyroxine 150 mcg tablet 150 mcg PO DAILY 12/01/22 05/08/23 furosemide 20 mg tablet 20 mg PO DAILY 04/07/23 05/08/23 meclizine 25 mg tablet 25 mg PO TID 04/07/23 05/08/23 mirtazapine 7.5 mg tablet 15 mg PO DAILY 04/07/23 05/08/23 sertraline 25 mg tablet 25 mg PO DAILY 05/08/23 05/08/23 Previous Rx's Medication Instructions Recorded carvedilol 6.25 mg tablet 3.125 mg (1/2 x 6.25 mg) PO BID 30 03/18/23 days #30 tabs Allergies Allergy/AdvReac Type Severity Reaction Status Date / Time No Known Drug Allergies Allergy Verified 04/07/23 15:48 [facility] Medical History (Updated 05/08/23 @ 13:45 by Cyrus Olson MD) Bacteremia due to Klebsiella pneumoniae ?R78.81 - Bacteremia (ICD-10) ?B96.1 - Klebsiella pneumoniae [k. pneumoniae] as the cause of diseases classified elsewhere (ICD-10) CKD (chronic kidney disease) stage 4, GFR 15-29 ml/min ?N18.4 - Chronic kidney disease, stage 4 (severe) (ICD-10) CAD (coronary artery disease) ?I25.10 - Atherosclerotic heart disease of [place] coronary artery without angina pectoris (ICD-10) COPD with acute exacerbation ?J44.1 - Chronic obstructive pulmonary disease with (acute) exacerbation (ICD-10) Polyposis of colon ?K63.5 - Polyp of colon (ICD-10) HTN (hypertension) ?I10 - Essential (primary) hypertension (ICD-10) COPD (chronic obstructive pulmonary disease) with emphysema ?J43.9 - Emphysema, unspecified (ICD-10) Hypothyroidism ?E03.9 - Hypothyroidism, unspecified (ICD-10) HFrEF (heart failure with reduced ejection fraction) ?I50.20 - Unspecified systolic (congestive) heart failure (ICD-10) Sepsis ?A41.9 - Sepsis, unspecified organism (ICD-10) Cardiac defibrillator in place ?Z95.810 - Presence of automatic (implantable) cardiac defibrillator (ICD-10) Myocardial infarction ?I21.9 - Acute myocardial infarction, unspecified (ICD-10) Right upper lobe pneumonia ?J18.9 - Pneumonia, unspecified organism (ICD-10) Vertigo ?R42 - Dizziness and giddiness (ICD-10) Pleural effusion ?J90 - Pleural effusion, not elsewhere classified (ICD-10) Congestive heart failure ?I50.9 - Heart failure, unspecified (ICD-10) Surgical History (Updated 03/03/23 @ 15:21 by Kelly Rico NP) H/O cardiac catheterization ?Z98.890 - Other specified postprocedural states (ICD-10) History of colonoscopy ?Z98.890 - Other specified postprocedural states (ICD-10) History of esophagogastroduodenoscopy (EGD) ?Z98.890 - Other specified postprocedural states (ICD-10) History of implantable cardioverter-defibrillator (ICD) placement ?Z95.810 - Presence of automatic (implantable) cardiac defibrillator (ICD-10) History of cholecystectomy ?Z90.49 - Acquired absence of other specified parts of digestive tract (ICD- 10) History of appendectomy ?Z90.49 - Acquired absence of other specified parts of digestive tract (ICD- 10) Family History Mother Family history of CHF (congestive heart failure) Family history of diabetes mellitus Social History (Updated 03/03/23 @ 14:48 by Jany Enciso) Within the past year, how often did you have a drink containing alcohol: never Score interpretation: A score less than 4 is consistent with normal alcohol consumption. Smoking status: Former smoker Previous occupational history: [employer] Known occupational exposures/hazards: No Highest level of school completed/degree received: high school graduate Are you now , , , , never or living with a partner: In a typical week, how many times do you talk on the telephone with family, friends, or neighbors: 3 or more times per week How often do you get together with friends or relatives: 3 or more times per week How often do you attend caodaism or mormonism services: never Do you belong to any clubs or organizations such as caodaism groups unions, fraternal or athletic groups, or school groups: no Total score: 1 Score interpretation: A score of less than or equal to 1 indicates the most socially isolated. Little interest or pleasure in doing things: not at all Feeling down, depressed, or hopeless: not at all Feel stressed/tense/nervous/anxious/difficulty sleeping: only a little Due to disability, difficulty making decisions: No Do you think of yourself as: straight/heterosexual Gender Identity: male Exam Narrative Exam Narrative: Awake alert pleasant oriented x 3 actually a pretty good historian. Vital signs are noted he does have a pacemaker in. His pulse oximetry is 99% on room air respiratory rate is normal he is not struggling to complete sentences. On HEENT he has no scleral icterus or pallor. His neck is soft and supple. He had stitches on his scalp several months ago and they are normal. He has not had any head or neck injury. Does not have a headache. His lungs show some scattered rales in both bases. Heart rate and rhythm show a paced rhythm. There is no ST segment elevation on his EKG on arrival here. His chest wall is nontender. Pacemaker present in the left upper chest. Abdominal area is benign to palpation. His extremities are significant for 3+ knee edema bilaterally. It is pitting. There is no evidence of cellulitis at this time. MDM - Chest Pain MDM Narrative Medical decision making narrative: This patient's chest x-ray is consistent with congestive heart failure. The BNP is substantially elevated. I do not believe there is an infectious component. His kidney function was noted. He was given 40 mg of IV Lasix. His pulse oximetry and vital signs remained stable here. I believe he will benefit from from hospitalization and aggressive diuresis in lieu of his of his very frail overall condition Discharge Plan Discharge Chief Complaint: Chest Pain Clinical Impression: CHF (congestive heart failure) Patient Disposition: Admitted as Observation Time of Disposition Decision: 13:45 Prescriptions / Home Meds: No Action furosemide 20 mg tablet 20 mg PO DAILY Hold Instructions: doctor order mirtazapine 7.5 mg tablet 15 mg PO DAILY meclizine 25 mg tablet 25 mg PO TID levothyroxine 150 mcg tablet 150 mcg PO DAILY carvedilol 6.25 mg Tablet 3.125 mg PO BID 30 Days Qty: 30 0RF sertraline 25 mg tablet 25 mg PO DAILY Referrals: JAN RIZZO [Primary Care Provider] - 1 week
--- NOTE | 2023-05-08 12:09 | XR_ITS ---
The [address] [address] Patient Name: CORKY DUENAS MRN: [id number] date: 1950 Sex: M Assigned Patient Location: ER Current Patient Location: ER Accession/Order Number: [id number] Exam Date: 05/08/2023 12:50 Report Date: 05/08/2023 13:13 At the request of: MEGAN GUILLAUME Procedure: XR chest 1V EXAMINATION: XR chest 1V 05/08/2023 10:10 AM PST HISTORY: Dyspnea TECHNIQUE: Single frontal view of the chest acquired. COMPARISONS: Chest x-ray 03/16/2023 and 04/07/2023 FINDINGS: Lines/tubes/other: Cardiac pulse generator and leads are similar. Heart and mediastinum: The heart and the mediastinum are within normal limits for technique. Bones: No acute osseous abnormality. Lungs: Bibasilar patchy opacification, new on the right and mildly worse on the left. Opacification of the right apex is similar. Mild pulmonary vascular engorgement. Pleura: Small right pleural effusion and trace left pleural effusion, similar. No pneumothorax. Other: None. XR/XR chest 1V IMPRESSION: 1. New/worsening bibasilar opacification. Differential includes pulmonary edema, atelectasis, aspiration, and pneumonia. 2. Pulmonary vascular engorgement which could represent mild pulmonary edema versus patient positioning and exam technique. 3. Stable right apical opacification. Electronically authenticated by: NALLELY VALLADARES Date: 05/08/2023 13:13
--- OUTSIDE RECORDS SUMMARY | 2023-05-08 12:10 | XMS_ITS | CCD ---
Author Name Unknown Address [address] [place] [address] Organization [facility] Care Team Providers Care Assigner Name Role Phone Unavailable Unavailable CRISTOBAL Albarran Primary Care Provider MD Cristobal Garcia Attending Provider Juan Manuel Albarran Unavailable Attjoce, Cristobal Unavailable Randee Perdomo Unavailable [phone] Mera Batista Unavailable Lissa Spears Unavailable Unavailable Josef Rush Unavailable Unavailable CRISTOBAL Albarran Primary Care Provider MD Marc Rosario Emergency Provider [phone] CRISTOBAL Albarran Primary Care Provider [phone] MD Marc Rosario Emergency Provider MD Beau Goldberg Attending Provider Marc Rosario Admitting Unavailable Marc Rosario Attending Unavailable Juan Manuel Albarran Primary Care Unavailable Attizzani, Cristobal Admitting Unavailable Attizzani, Cristobal Attending Unavailable Juan Manuel Albarran Primary Care Unavailable Attizzani, Cristobal Admitting Unavailable Attizznaheed, Cristoabl Attending Unavailable Juan Manuel Albarran Primary Care [...] DR MANISH Feliz Consulting Unavailable VINNY ., KLIEY Consulting Unavailable HAY ., DR LAST Consulting [...] Unavailable ATTIZZANI, CRISTOBAL Attending Unavailable Albarran II, [facility] Unavail able DO DIAZ CANCHOLA Referring Unava ilable Albarran II, [facility] Unavail able Renu, MsLayne Herr Attending Unavailable ATTIZZANI, CRISTOBAL Attending Unavailable Albarran II, [facility] Unavail able LYNNE, MD MERA GRAVES Attending Unavailabl e LYNNE, MD MERA GRAVES Referring Unavailabl e Albarran II, [facility] Unavail able ATTIZZANI, CRISTOBAL Attending Unavailable Albarran II, [facility] Unavail able ATTIZZANI, CRISTOBAL Attending Unavailable ATTIZZANI, CRISTOBAL Referring Unavailable Albarran II, [facility] Unavail able ATTIZZANI, CRISTOBAL Admitting Unavailable ATTIZZANI, CRISTOBAL Attending Unavailable Albarran II, [facility] Unavail able DO DIAZ CANCHOLA Referring [...] Lynne, Dr. Mera Graves Attending Unavailab le Deion II, Dr. Juan Manuel Murray Primary [...] Unavailab le Albarran II, Dr. Juan Manuel Murrya Primary Care Jess vailable Lynne, Dr. Mera [...] Jess vailable Lynne, Dr. Mera Graves Attending [facility] destiney Albarran II, Dr. Juan Manuel Murray Primary [facility] Jess vailable Lynne, Dr. Mera Graves Attending [facility] destiney Albarran II, Dr. Juan Manuel Murray [facility] Jess vailable Lynne, Dr. Mera Graves Att[facility], Dr. Juan Manuel Murray [facility] Jess vailable Lynne, Dr. Mera Graves Attending [facility] destiney Albarran II, Dr. Juan Manuel Murray Primary [facility] Jess vailable Lynne, Dr. Mera Graves Attending [facility] le Deion II, Dr. Juan Manuel Murray [facility] Jess vailable Lynne, Dr. Mera Graves Attending [facility] JUAN MANUEL Stevenson Attending Unavailable DAYTON RUIZ Attending [facility] Berg Referring JUAN MANUEL Roberts Attending JUAN MANUEL Roberts Attending Unavailable Allergies Allergy Classification Reported Allergen(s) Allergy Type Date of Onset Reaction(s) Facility (1 source) ALLERGIES NOT ON FILE; Translations: [ALLERGIES NOT ON FILE] Propensity to adverse reactions (disorder) [facility] Medications Current Medications Medication Drug Class(es) [...] Start: 08-03-2020 take 1 tablet by alan twice daily Carvedilol 25 MG Oral Tablet [...] oral tablet (20 sources) Opioid Agonist Start: 1 End: 1 take 1 tablet by mouth [...] 09-09-2021 Chronic Comment on above: severe, echo er 2019; severe, echo 12/2019; Hypertension with [...] 11-14-2021 Chronic Unclassified (2 sources) MITRAL REGURGITATION/CPT -55857 09-25-2021 Comment on above: MITRAL REGURGITATION /CPT -47103 Unclassified (1 source) 6M FU [facility] 08-13-2021 Comment on above: 6M FU [facility] Unclassified (1 source) CLINIC 08-15-2021 Comment on above: CLINIC Unclassified (1 source) VIRTUAL VISIT--1 MO FU-- --[email or web address] 09-24-2021 Comment on above: VIRTUAL VISIT--1 MO FU-- [email or web address] Unclassified (1 source) VIRTUAL VISIT--1 WK FU-- --[email or web address] 09-24-2021 Comment on above: VIRTUAL VISIT--1 WK FU-- --[email or web address] Unclassified (1 source) Encounter for preprocedural laboratory [...] 01-10-2022 Episodic Other aftercare (2 sources) 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; Translations: [OTH SNF CURRENT DRUG THERAPY] Onset: 10-31-2021 Episodic Other [...] Remot sheryl 02-04-2023 Radiology Study observation (narrative) [facility] Work Phone: Cardiac Device Check - Remot eOrdered By: Mera Batista on 02-04-2023 [facility] Work Phone: XR FINGER MIN 2 [...] by: CARLEY ROBERTSON Date: 2022-08-15 18:02 Normal [facility] Blood Urea Nitrogenon 2021 Urea nitrogen [Mass/Vol] 5 mg/dL Low 12-27 [facility] Comment on above: Performed By: #### B , CREAT ####[facility] [id number] abdomen pelvis w conon CT abdomen pelvis w con [facility] [address] [place] [address] [place] [address] CT Scan Report Signed Patient: Corky Duenas MR#: [id number] : 1950 Acct:[id number] Age/Sex: 71 / M ADM Date: 03/14/22 Loc: CT Room: Type: [facility] Attending Dr: Beau Goldberg MD Copies to: [...] findings. Impression dictated by: Ethan Haywood Jr., DJacy03/14/2022 1:25 PM Dictation Location: [place] [address] Transcribed By: [facility] 03/14/22 1325 Dictated By: Ethan Haywood Jr, DO 03/14/22 1320 Signed By: 03/14/22 1325 [facility] Creatinineon 03-14-2022 Creatinine [Mass/Vol] 1.04 mg/dL Normal 0.64-1.27 [facility] Comment on above: Performed By: #### B XI, CREAT ####[address] Estimated GFR ( Brenda > 60 [facility] Comment on above: Result Comment: GFR estimated reference range: According to KDOQI guidelines, <60 ml/min/1.73m2 is sufficient to diagnose a patient with chronic kidney disease. PERFORMED BY: [facility] [address] [place] [address] PATHOLOGIST TRAY DELIVERY AIDE BAY THRASHER M.D. Performed By: #### B XI, CREAT ####[address] Estimated GFR (Non- Am > 60 [facility] Comment on above: Performed By: #### B XI, CREAT ####[address] Creatinine and Glomerular fi ltration rate.predicted panel (S/P/Bld)Ordered By: Beau Goldberg on 03-14-2022 Creatinine [Mass/Vol] 1.04 mg/dL 0.64-1.27 [facility] Estimated glomerular filtrat ion rate (GFR) non- AmericanOrdered By: Beau Goldberg on 03-14-2022 GFR/1.73 sq M.predicted among non-blacks MDRD (S/P/Bld) [Vol rate/Area] > 60 mL/Min [facility] No Panel InformationOrdered By: Beau Yusuf on 03-14-2022 Estimated GFR () > 60 mL/Min [facility] Comment on above: GFR estimated refere nce range: According to KDOQI guidelines, <60 ml/min/1.73m2 is sufficient to diagnose a patient with chronic kidney disease. Pharmacy Creatinine Clearance (Chem N/A [facility] Serum or plasma urea nitroge n measurement (mass/volume)Ordered By: Beau Goldberg on 03-14-2022 Urea nitrogen [Mass/Vol] 5 mg/dL 12-27 [facility] COVID-19 Antigenon 2 COVID-19 Antigen [...] developed and its performance characteristic determined by [facility] and validated at [facility]. This test has not been [...] for SARS Antigen by JOSEPH PERFORMED BY: [place] [id number] PATHOLOGIST TRAY DELIVERY AIDE BAY THRASHER M.D. Normal [facility] Comment on above: Performed By: #### C OVID-19 VALENCIA, SOFIANEG #### [address] COVID-19 SOFIAOrdered By: Johnathan Goldberg on 02-20-2022 SARS-CoV+SARS-CoV-2 (COVID-19) Ag IA.rapid Ql (Resp) Negative Negative [facility] Comment on above: This is a duplicate [place] SARS Antigen (JOSEPH) result to be used for statistical tracking purpose only. No Panel InformationOrdered By: Beau Goldberg on 02-20-2022 SARS Antigen (LFIA) [facility] [place] Ag Negativeon 02-21-20 22 [place] Ag Negative Negative Normal Negative [facility] Comment on above: Result Comment: This is a duplicate [place] SARS Antigen (JOSEPH) result to be used for statistical tracking purpose only. PERFORMED BY: [place] [address] PATHOLOGIST TRAY DELIVERY AIDE BAY THRASHER M.D. Performed By: #### C OVID-19 VALENCIA, SOFIANEG #### [place] [id number] [facility] FREE T3on 02-11-2022 FREE T3 2.24 pg/mlL Normal 2.18-3.98 [facility] Comment on above: Performed By: #### F T3, TSH #### [facility] [address] [place] [address] Dr. Apolonia Norwood FREE T4on 02-11-2022 Free T4 [Mass/Vol] 0.68 ng/dL Critically low 0.76-1.46 Th [facility] Comment on above: Performed By: #### F T4 #### [facility] [address] [place] [address] [address] Apolonia Norwood TSHon 02-11-2022 TSH 17.836 uIU/mL Critically high 0.358-3.740 [facility] Comment on above: Performed By: #### F T3, TSH #### [facility] [address] [place] [address] [address] Apolonia Norwood Albumin [Mass/volume] in Ser um or PlasmaOrdered By: Marc Rosario on 01-15-2022 Albumin [Mass/Vol] 3.5 g/dL 3.2-5.5 [facility] Amylaseon 01-15-2022 Amylase [Catalytic activity/Vol] 123 U/L High 28-100 [facility] Comment on above: Performed By: #### L IPASE, CBC, CMP, HS TROP, KILEY #### [facility] [address] Basophils Auto (Bld) [#/Vol] Ordered By: Marc Rosario on 01-15-2022 Basophils (Bld) [#/Vol] 0.1 10*3/uL 0.0-0.2 [facility] Basophils/100 WBC Auto (Bld) Ordered By: Marc Rosario on 01-15-2022 Basophils/100 WBC (Bld) 0.9 % . [facility] Bilirubin Test strip Ql (U)O rdered By: Marc Rosario on 01-15-2022 Bilirubin Ql (U) Negative Negative [facility] CT abdomen pelvis wo conon 1 CT abdomen pelvis wo con [facility] [address] [place] [address] [place] [address] CT Scan Report Signed Patient: Corky Duenas MR#: [id number] : 1950 Acct:[id number] Age/Sex: 71 / M ADM Date: 01/15/22 Loc: ER Room: Type: [facility] ER Attending Dr: Copies to: Marc Rosario [...] Ludy Feldman M.D.01/15/2022 6:05 PM Dictation Location: [place] [address] Transcribed By: [facility] 01/15/221804 Dictated By: Ludy Feldman MD 01/15/22 652 Signed By: 01/15/221804 Normal [facility] Color Auto (U)Ordered By: Angie Rosario on 01-15-2022 Color (U) Yellow Yellow [facility] Complete Blood Count Auto Di ffon 01-15-2022 Basophils (Bld) [#/Vol] 0.1 10*3/uL Normal 0.0-0.2 [facility] Comment on above: Result Comment: PERF ORMED BY: [place] [address] PATHOLOGIST TRAY DELIVERY AIDE BAY THRASHER M.D. Performed By: #### L IPASE, CBC, CMP, HS TROP, KILEY #### [address] Basophils/100 WBC (Bld) 0.9 % Normal . [facility] Comment on above: Performed By: #### L IPASE, CBC, CMP, HS TROP, KILEY #### [address] Eosinophils (Bld) [#/Vol] 0.2 10*3/uL Normal 0.0-0.45 [facility] Comment on above: Performed By: #### L IPASE, CBC, CMP, HS TROP, KILEY #### [address] Eosinophils/100 WBC (Bld) 3.0 % Normal . [facility] Comment on above: Performed By: #### L IPASE, CBC, CMP, HS TROP, KILEY #### [address] Erythrocyte distribution width (RBC) [Ratio] 14.0 % Normal 12.0-14.8 [facility] Comment on above: Performed By: #### L IPASE, CBC, CMP, HS TROP, KILEY #### [address] Hematocrit (Bld) [Volume fraction] 42.2 % Normal 38.8-50.0 [facility] Comment on above: Performed By: #### L IPASE, CBC, CMP, HS TROP, KILEY #### [address] [place] [address] [place] Hemoglobin (Bld) [Mass/Vol] 14.2 g/dL Normal 13.0-17.0 [facility] Comment on above: Performed By: #### L IPASE, CBC, CMP, HS TROP, KILEY #### [address] Lymphocytes (Bld) [#/Vol] 1.4 10*3/uL Normal 1.00-4.8 [facility] Comment on above: Performed By: #### L IPASE, CBC, CMP, HS TROP, KILEY #### [address] Lymphocytes/100 WBC (Bld) 22.1 % Normal . [facility] Comment on above: Performed By: #### L IPASE, CBC, CMP, HS TROP, KILEY #### [address] MCH (RBC) [Entitic mass] 33.2 pg Normal 27.5-35.2 [facility] Comment on above: Performed By: #### L IPASE, CBC, CMP, HS TROP, KILEY #### [address] MCV (RBC) [Entitic vol] 99.0 fL Normal 83.5-101 [facility] Comment on above: Performed By: #### L IPASE, CBC, CMP, HS TROP, KILEY #### [address] Mean Corpuscular HGB Conc 33.5 g/dL Normal 32.5-35.6 [facility] Comment on above: Performed By: #### L IPASE, CBC, CMP, HS TROP, KILEY #### [address] Monocytes (Bld) [#/Vol] 0.5 10*3/uL Normal 0.0-0.8 [facility] Comment on above: Performed By: #### L IPASE, CBC, CMP, HS TROP, KILEY #### [address] Monocytes/100 WBC (Bld) 7.1 % Normal . [facility] Comment on above: Performed By: #### L IPASE, CBC, CMP, HS TROP, KILEY #### [address] Neutrophils (Bld) [#/Vol] 4.3 10*3/uL Normal 1.8-7.7 [facility] Comment on above: Performed By: #### L IPASE, CBC, CMP, HS TROP, KILEY #### [address] Neutrophils/100 WBC (Bld) 66.9 % Normal . [facility] Comment on above: Performed By: #### L IPASE, CBC, CMP, HS TROP, KILEY #### [address] Nucleated RBC/100 WBC (Bld) [Ratio] 0.1 % Normal 0-0.5 [facility] Comment on above: Performed By: #### L IPASE, CBC, CMP, HS TROP, KILEY #### [address] Platelet mean volume (Bld) [Entitic vol] 8.4 fL Normal 6.6-10.1 [facility] Comment on above: Performed By: #### L IPASE, CBC, CMP, HS TROP, KILEY #### [place] [address] [place] Platelets (Bld) [#/Vol] 263 10*3/uL Normal 150-450 [facility] Comment on above: Performed By: #### L IPASE, CBC, CMP, HS TROP, KILEY #### [place] [address] [place] RBC (Bld) [#/Vol] 4.26 10*6/uL Normal 3.90-5.60 [facility] Comment on above: Performed By: #### L IPASE, CBC, CMP, HS TROP, KILEY #### [place] [address] [place] WBC (Bld) [#/Vol] 6.4 10*3/uL Normal 4.5-11.0 [facility] Comment on above: Performed By: #### L IPASE, CBC, CMP, HS TROP, KILEY #### [facility] [address] Comprehensive Metabolic Pane isis 01-15-2022 Albumin [Mass/Vol] 3.5 g/dL Normal 3.2-5.5 [facility] Comment on above: Performed By: #### L IPASE, CBC, CMP, HS TROP, KILEY #### [address] Albumin/Globulin [Mass ratio] 1.0 {ratio} Normal [facility] Comment on above: Performed By: #### L IPASE, CBC, CMP, HS TROP, KILEY #### [address] ALP [Catalytic activity/Vol] 58 U/L Normal 32-92 [facility] Comment on above: Performed By: #### L IPASE, CBC, CMP, HS TROP, KILEY #### [address] ALT [Catalytic activity/Vol] 16 U/L Normal 10-60 [facility] Comment on above: Performed By: #### L IPASE, CBC, CMP, HS TROP, KILEY #### [address] Anion gap [Moles/Vol] 15.2 mmol/L High 6.0-15.0 [facility] Comment on above: Performed By: #### L IPASE, CBC, CMP, HS TROP, KILEY #### [address] AST [Catalytic activity/Vol] 22 U/L Normal 10-42 [facility] Comment on above: Performed By: #### L IPASE, CBC, CMP, HS TROP, KILEY #### [address] Bilirubin [Mass/Vol] 0.9 mg/dL Normal 0.3-1.2 [facility] Comment on above: Performed By: #### L IPASE, CBC, CMP, HS TROP, KILEY #### [facility] [address] Calcium [Mass/Vol] 8.9 mg/dL Normal 8.2-10.2 [facility] Comment on above: Performed By: #### L IPASE, CBC, CMP, HS TROP, KILEY #### [facility] [address] Chloride [Moles/Vol] 103 mmol/L Normal 95-114 [facility] Comment on above: Performed By: #### L IPASE, CBC, CMP, HS TROP, KILEY #### [address] CO2 [Moles/Vol] 24.4 mmol/L Normal 22.0-30.0 [facility] Comment on above: Performed By: #### L IPASE, CBC, CMP, HS TROP, KILEY #### [address] Creatinine [Mass/Vol] 1.12 mg/dL Normal 0.64-1.27 [facility] Comment on above: Performed By: #### L IPASE, CBC, CMP, HS TROP, KILEY #### [address] Creatinine Clr Calc Pharmacy 54.59 [facility] Comment on above: Performed By: #### L IPASE, CBC, CMP, HS TROP, KILEY #### [address] Estimated GFR ( Brenda > 60 [facility] Comment on above: Result Comment: GFR estimated reference range: According to KDOQI guidelines, <60 ml/min/1.73m2 is sufficient to diagnose a patient with chronic kidney disease. Performed By: #### L IPASE, CBC, CMP, HS TROP, KILEY #### [address] Estimated GFR (Non- Am > 60 [facility] Comment on above: Performed By: #### L IPASE, CBC, CMP, HS TROP, KILEY #### [facility] [address] [place] [address] [place] Globulin (S) [Mass/Vol] 3.4 g/dL Normal [facility] Comment on above: Performed By: #### L IPASE, CBC, CMP, HS TROP, KILEY #### [facility] [address] [place] [address] [place] Glucose [Mass/Vol] 86 mg/dL Normal 70-100 [facility] Comment on above: Result Comment: [facility] Glucose Reference Range is dependent on time and content of last meal. Glucose of more than 200 mg/dL in a nonstressed, ambulatory subject supports the diagnosis of Diabetes Mellitus. ADA recommended reference range Performed By: #### L IPASE, CBC, CMP, HS TROP, KILEY #### [facility] [address] Potassium [Moles/Vol] 3.6 mmol/L Normal 3.5-5.1 [facility] Comment on above: Performed By: #### L IPASE, CBC, CMP, HS TROP, KILEY #### [facility] [address] [place] [address] [place] Protein [Mass/Vol] 6.9 g/dL Normal 6.1-7.9 [facility] Comment on above: Performed By: #### L IPASE, CBC, CMP, HS TROP, KILEY #### [facility] [address] [place] [address] [place] Sodium [Moles/Vol] 139 mmol/L Normal 136-146 [facility] Comment on above: Performed By: #### L IPASE, CBC, CMP, HS TROP, KILEY #### [facility] [address] [place] [address] [place] Urea nitrogen [Mass/Vol] 11 mg/dL Normal 9-23 [facility] Comment on above: Performed By: #### L IPASE, CBC, CMP, HS TROP, KILEY #### [facility] [address] [place] [address] [place] Creatinine and Glomerular fi ltration rate.predicted panel (S/P/Bld)Ordered By: Marc Rosario on 01-15-2022 Creatinine [Mass/Vol] 1.12 mg/dL 0.64-1.27 [facility] Eosinophils Auto (Bld) [#/Vo l]Ordered By: Marc Rosario on 01-15-2022 Eosinophils (Bld) [#/Vol] 0.2 10*3/uL 0.0-0.45 [facility] Eosinophils/100 WBC Auto (Bl d)Ordered By: Marc Rosario on 01-15-2022 Eosinophils/100 WBC (Bld) 3.0 % . [facility] Erythrocyte distribution wid th Auto (RBC) [Ratio]Ordered By: Marc Rosario on 01-15-2022 Erythrocyte distribution width (RBC) [Ratio] 14.0 % 12.0-14.8 [facility] Estimated glomerular filtrat ion rate (GFR) non- AmericanOrdered By: Marc Rosario on 01-15-2022 GFR/1.73 sq M.predicted among non-blacks MDRD (S/P/Bld) [Vol rate/Area] > 60 mL/Min [facility] Globulin Calc (S) [Mass/Vol] Ordered By: Marc Rosario on 01-15-2022 Globulin (S) [Mass/Vol] 3.4 g/dL [facility] Hematocrit Auto (Bld) [Volum e fraction]Ordered By: Marc Rosario on 01-15-2022 Hematocrit (Bld) [Volume fraction] 42.2 % 38.8-50.0 [facility] Hemoglobin [Mass/volume] in BloodOrdered By: Marc Rosario on 01-15-2022 Hemoglobin (Bld) [Mass/Vol] 14.2 g/dL 13.0-17.0 [facility] Ketones Auto test strip (U) [Mass/Vol]Ordered By: Marc Rosario on 01-15-2022 Ketones (U) [Mass/Vol] Negative Negative [facility] Laboratory - Chemistry and C hemistry - challengeOrdered By: Marc Rosario on 01-15-2022 Lipase [Catalytic activity/Vol] 32.0 U/L 22-51 [facility] Laboratory - Hematology and Cell countsOrdered By: Marc Rosario on 01-15-2022 Nucleated RBC/100 WBC (Bld) [Ratio] 0.1 % 0-0.5 [facility] Leukocytes [#/volume] in Blo od by Automated countOrdered By: Marc Rosario on 01-15-2022 WBC (Bld) [#/Vol] 6.4 10*3/uL 4.5-11.0 [facility] Lipaseon 01-15-2022 Lipase [Catalytic activity/Vol] 32.0 U/L Normal 22-51 [facility] Comment on above: Result Comment: PERF ORMED BY: [facility] [address] [place] [address] PATHOLOGIST TRAY DELIVERY AIDE BAY THRASHER M.D. Performed By: #### L IPASE, CBC, CMP, HS TROP, KILEY #### [facility] [address] Lymphocytes Auto (Bld) [#/Vo l]Ordered By: Marc Rosario on 01-15-2022 Lymphocytes (Bld) [#/Vol] 1.4 10*3/uL 1.00-4.8 [facility] Lymphocytes/100 WBC Auto (Bl d)Ordered By: Marc Rosario on 01-15-2022 Lymphocytes/100 WBC (Bld) 22.1 % . [facility] MCH Auto (RBC) [Entitic mass ]Ordered By: Marc Rosario on 01-15-2022 MCH (RBC) [Entitic mass] 33.2 pg 27.5-35.2 [facility] MCHC Auto (RBC) [Mass/Vol]Or dered By: Marc Rosario on 01-15-2022 MCHC (RBC) [Mass/Vol] 33.5 g/dL 32.5-35.6 [facility] MCV Auto (RBC) [Entitic vol] Ordered By: Marc Rosario on 01-15-2022 MCV (RBC) [Entitic vol] 99.0 fL 83.5-101 [facility] Monocytes Auto (Bld) [#/Vol] Ordered By: Marc Rosario on 01-15-2022 Monocytes (Bld) [#/Vol] 0.5 10*3/uL 0.0-0.8 [facility] Monocytes/100 WBC Auto (Bld) Ordered By: Marc Rosario on 01-15-2022 Monocytes/100 WBC (Bld) 7.1 % . [facility] Neutrophils Auto (Bld) [#/Vo l]Ordered By: Marc Rosario on 01-15-2022 Neutrophils (Bld) [#/Vol] 4.3 10*3/uL 1.8-7.7 [facility] Neutrophils/100 WBC Auto (Bl d)Ordered By: Marc Rosario on 01-15-2022 Neutrophils/100 WBC (Bld) 66.9 % . [facility] Nitrite Test strip Ql (U)Ord ered By: Marc Rosario on 01-15-2022 Nitrite Ql (U) Negative Negative [facility] No Panel InformationOrdered By: Marc Rosario on 01-15-2022 Estimated GFR () > 60 mL/Min [facility] Comment on above: GFR estimated refere nce range: According to KDOQI guidelines, <60 ml/min/1.73m2 is sufficient to diagnose a patient with chronic kidney disease. Pharmacy Creatinine Clearance (Chem 54.59 [facility] Platelet mean volume Auto (B ld) [Entitic vol]Ordered By: Marc Rosario on 01-15-2022 Platelet mean volume (Bld) [Entitic vol] 8.4 fL 6.6-10.1 [facility] Platelets Auto (Bld) [#/Vol] Ordered By: Marc Rosario on 01-15-2022 Platelets (Bld) [#/Vol] 263 10*3/uL 150-450 [facility] Protein Auto test strip (U) [Mass/Vol]Ordered By: Marc Rosario on 01-15-2022 Protein (U) [Mass/Vol] Negative Negative [facility] Protein [Mass/volume] in Ser um or PlasmaOrdered By: Marc Rosario on 01-15-2022 Protein [Mass/Vol] 6.9 g/dL 6.1-7.9 [facility] RBC Auto (Bld) [#/Vol]Ordere d By: Marc Rosario on 01-15-2022 RBC (Bld) [#/Vol] 4.26 10*6/uL 3.90-5.60 [facility] Serum or plasma alanine bermudez otransferase measurement without P-5'-P (enzymatic activiOrdered By: Marc Rosario on 01-15-2022 ALT No additional P-5'-P [Catalytic activity/Vol] 16 U/L 1060 [facility] Serum or plasma albumin/glob ulin mass ratioOrdered By: Marc Rosario on 01-15-2022 Albumin/Globulin [Mass ratio] 1.0 {ratio} [facility] Serum or plasma alkaline koffi sphatase measurement (enzymatic activity/volume)Ordered By: Marc Rosario on 01-15-2022 ALP [Catalytic activity/Vol] 58 U/L 32-92 [facility] Serum or plasma amylase perla urement (enzymatic activity/volume)Ordered By: Marc Rosario on 01-15-2022 Amylase [Catalytic activity/Vol] 123 U/L 28-100 [facility] Serum or plasma anion gap de terminationOrdered By: Marc Rosario on 01-15-2022 Anion gap [Moles/Vol] 15.2 mmol/L 6.0-15.0 [facility] Serum or plasma aspartate am inotransferase measurement (enzymatic activity/volume)Ordered By: Marc Rosario on 01-15-2022 AST [Catalytic activity/Vol] 22 U/L 10-42 [facility] Serum or plasma calcium perla urement (mass/volume)Ordered By: Marc Rosario on 01-15-2022 Calcium [Mass/Vol] 8.9 mg/dL 8.2-10.2 [facility] Serum or plasma chloride carlie surement (moles/volume)Ordered By: Marc Rosario on 01-15-2022 Chloride [Moles/Vol] 103 mmol/L 95-114 [facility] Serum or plasma glucose perla urement (mass/volume)Ordered By: Marc Rosario on 01-15-2022 Glucose [Mass/Vol] 86 mg/dL 70-100 [facility] Comment on above: ADA recommended refe rence rangeRandom Glucose Reference Range is dependent on time and content of last meal. Glucose of more than 200 mg/dL in a nonstressed, ambulatory subject supports the diagnosis of Diabetes Mellitus. Serum or plasma potassium me asurement (moles/volume)Ordered By: Marc Rosario on 01-15-2022 Potassium [Moles/Vol] 3.6 mmol/L 3.5-5.1 [facility] Serum or plasma sodium measu rement (moles/volume)Ordered By: Marc Rosario on 01-15-2022 Sodium [Moles/Vol] 139 mmol/L 136-146 [facility] Serum or plasma total biliru bin measurement (mass/volume)Ordered By: Marc Rosario on 01-15-2022 Bilirubin [Mass/Vol] 0.9 mg/dL 0.3-1.2 [facility] Serum or plasma total carbon dioxide measurement (moles/volume)Ordered By: Marc Rosario on 01-15-2022 CO2 [Moles/Vol] 24.4 mmol/L 22.0-30.0 [facility] Serum or plasma urea nitroge n measurement (mass/volume)Ordered By: Marc Rosario on 01-15-2022 Urea nitrogen [Mass/Vol] 11 mg/dL 9- [facility] Specific gravity Auto test s trip (U) [Rel density]Ordered By: Marc Rosario on 01-15-2022 Specific gravity (U) [Rel density] 1.007 1.001-1.030 [facility] Troponin I High Sensitivityo n 01-15-2022 Troponin I High Sensitivity 10 pg/mL Normal 0-20 [facility] Comment on above: Result Comment: PERF ORMED BY: [facility] [address] [place] [address] PATHOLOGIST TRAY DELIVERY AIDE BAY THRASHER M.D. Performed By: #### L IPASE, CBC, CMP, HS TROP, KILEY #### [facility] [address] Troponin I.cardiac [Mass/vol ume] in Serum or Plasma by High sensitivity methodOrdered By: Marc Rosario on 01-15-2022 Troponin I.cardiac High sensitivity method [Mass/Vol] 10 pg/mL 0-20 [facility] Urinalysison 01-15-2022 Appearance (U) Clear Normal Clear [facility] Comment on above: Order Comment: Name Collection Type:: Clean-Voided Midstream Performed By: #### U A ####[facility] [id number] Bilirubin,Urine Negative Normal Negative [facility] Comment on above: Order Comment: Name Collection Type:: Clean-Voided Midstream Performed By: #### U A ####[address] [address] [facility] Color (U) Yellow Normal Yellow [facility] Comment on above: Order Comment: Name Collection Type:: Clean-Voided Midstream Performed By: #### U A ####[address] [address] [facility] Glucose Ql (U) Normal Normal Normal [facility] Comment on above: Order Comment: Name Collection Type:: Clean-Voided Midstream Performed By: #### U A ####[address] [address] [facility] Ketones Ql (U) Negative Normal Negative [facility] Comment on above: Order Comment: Name Collection Type:: Clean-Voided Midstream Performed By: #### U A ####[place] [id number] [facility] Leukocyte esterase Test strip Ql (U) Negative Normal Negative [facility] Comment on above: Order Comment: Name Collection Type:: Clean-Voided Midstream Performed By: #### U A ####[address] [address] [facility] Nitrite,Urine Negative Normal Negative [facility] Comment on above: Order Comment: Name Collection Type:: Clean-Voided Midstream Performed By: #### U A ####[address] [address] [facility] Occult Blood,Urine Negative Normal Negative [facility] Comment on above: Order Comment: Name Collection Type:: Clean-Voided Midstream Result Comment: PERF ORMED BY: [facility] [address] [place] [id number] PATHOLOGIST TRAY DELIVERY AIDE BAY THRASHER M.D. Performed By: #### U A ####[address] [address] [facility] pH (U) 7.5 [pH] Normal 5.0-9.0 [facility] Comment on above: Order Comment: Name Collection Type:: Clean-Voided Midstream Performed By: #### U A ####[facility] [place] [address] [facility] Protein,Urine Negative Normal Negative [facility] Comment on above: Order Comment: Name Collection Type:: Clean-Voided Midstream Performed By: #### U A ####[address] [address] [facility] Specificy [place],Urine 1.007 Normal 1.001-1.030 [facility] Comment on above: Order Comment: Name Collection Type:: Clean-Voided Midstream Performed By: #### U A ####[place] [id number] [facility] Urobilinogen,Urine Normal Normal Normal [facility] Comment on above: Order Comment: Name Collection Type:: Clean-Voided Midstream Performed By: #### U A ####[place] [id number] [facility] Urine clarity by refractomet ry automatedOrdered By: Marc Rosario on 01-15-2022 Clarity Refractometry automated (U) Clear Clear [facility] Urine glucose measurement by automated test strip (mass/volume)Ordered By: Marc Rosario on 01-15-2022 Glucose Auto test strip (U) [Mass/Vol] Normal mg/dL Normal [facility] Urine hemoglobin detection b y automated test stripOrdered By: Marc Rosario on 01-15-2022 Hemoglobin Auto test strip Ql (U) Negative Negative [facility] Urine leukocyte esterase det ection by automated test stripOrdered By: Marc Rosario on 01-15-2022 Leukocyte esterase Auto test strip Ql (U) Negative Negative [facility] Urobilinogen Auto test strip (U) [Mass/Vol]Ordered By: Marc Rosario on 01-15-2022 Urobilinogen (U) [Mass/Vol] Normal mg/dL Normal [facility] pH Auto test strip (U)Ordere d By: Marc Rosario on 01-15-2022 pH (U) 7.5 [pH] 5.0-9.0 [facility] CBC AUTO DIFFon 01-07-2022 BASO # 0.1 103/ul Normal 0.0-0.1 [facility] Comment on above: Performed By: #### F T4 #### [facility] [address] [place] [address] Dr. Apolonia Norwood Basophils/100 WBC (Bld) 0.9 % Normal 0.2-2.0 [facility] Comment on above: Performed By: #### F T4 #### [facility] [address] [place] [address] Dr. Apolonia Norwood EO # 0.3 103/ul Normal 0.0-0.7 [facility] Comment on above: Performed By: #### F T4 #### [facility] [address] [place] [address] Dr. Apolonia Norwood Eosinophils/100 WBC (Bld) 5.1 % Normal 0.9-7.0 [facility] Comment on above: Performed By: #### F T4 #### [facility] [address] [place] [address] Dr. Apolonia Norwood Erythrocyte distribution width (RBC) [Ratio] 13.8 % Normal 11.0-15.0 [facility] Comment on above: Performed By: #### F T4 #### [facility] [address] [place] [address] Dr. Apolonia Norwood Hematocrit (Bld) [Volume fraction] 39.2 % Critically low 42.0-54.0 [facility] Comment on above: Performed By: #### F T4 #### [facility] [address] [place] [address] Dr. Apolonia Norwood Hemoglobin (Bld) [Mass/Vol] 12.8 g/dL Critically low 14.0-18.0 [facility] Comment on above: Performed By: #### F T4 #### [facility] [address] [place] [address] Dr. Apolonia Norwood IG # 0.02 10e3/ul Normal 0.00-0.03 [facility] Comment on above: Performed By: #### F T4 #### [facility] [address] [place] [address] Dr. Apolonia Norwood IG % 0.4 % Normal 0.0-0.5 [facility] Comment on above: Performed By: #### F T4 #### [facility] [address] [place] [address] Dr. Apolonia Norwood LYMPH # 1.3 103/ul Normal 1.2-3.8 [facility] Comment on above: Performed By: #### F T4 #### [facility] [address] [place] [address] Dr. Apolonia Norwood Lymphocytes/100 WBC (Bld) 23.7 % Normal 20.5-60.0 [facility] Comment on above: Performed By: #### F T4 #### [facility] [address] [place] [address] Dr. Apolonia Norwood MANUAL DIFF REQ NO Normal [facility] Comment on above: Performed By: #### F T4 #### [facility] [address] [place] [address] Dr. Apolonia Norwood MCH (RBC) [Entitic mass] 33.2 pg Normal 25.9-34.0 [facility] Comment on above: Performed By: #### F T4 #### [facility] [address] [place] [address] Dr. Apolonia Norwood MCHC (RBC) [Mass/Vol] 32.7 g/dL Normal 29.9-35.2 [facility] Comment on above: Performed By: #### F T4 #### [facility] [address] [place] [address] Dr. Apolonia Norwood MCV (RBC) [Entitic vol] 101.8 fL Critically high 80.0-94.0 [facility] Comment on above: Performed By: #### F T4 #### [facility] [address] [place] [address] Dr. Apolonia Norwood MONO # 0.4 103/ul Normal 0.3-0.8 [facility] Comment on above: Performed By: #### F T4 #### [facility] [address] [place] [address] Dr. Apolonia Norwood Monocytes/100 WBC (Bld) 7.8 % Normal 1.7-12.0 [facility] Comment on above: Performed By: #### F T4 #### [facility] [address] [place] [address] [address] Apolonia Norwood NEUT # 3.3 103/ul Normal 1.4-6.5 [facility] Comment on above: Performed By: #### F T4 #### [facility] [address] [place] [address] [address] Apolonia Norwood Neutrophils/100 WBC (Bld) 62.1 % Normal 43.0-75.0 [facility] Comment on above: Performed By: #### F T4 #### [facility] [address] [place] [address] Dr. Apolonia Norwood Platelet mean volume (Bld) [Entitic vol] 9.5 fL Normal 9.5-13.5 [facility] Comment on above: Performed By: #### F T4 #### [facility] [address] [place] [address] Dr. Apolonia Norwood PLT 181 103/ul Normal 150-450 [facility] Comment on above: Performed By: #### F T4 #### [facility] [address] [place] [address] Dr. Apolonia Norwood RBC 3.85 106/ul Critically low 4.70-6.10 [facility] Comment on above: Performed By: #### F T4 #### [facility] [address] [place] [address] Dr. Apolonia Norwood WBC 5.3 103/ul Normal 4.0-11.0 [facility] Comment on above: Performed By: #### F T4 #### [facility] [address] [place] [address] Dr. Apolonia Norwood PROF 14(COMP METB)on 022 Albumin [Mass/Vol] 2.9 g/dL Critically low 3.4-5.0 [facility] Comment on above: Performed By: #### F T4 #### [facility] [address] [place] [address] Dr. Apolonia Norwood Albumin/Globulin [Mass ratio] 0.9 {ratio} Normal [facility] Comment on above: Performed By: #### F T4 #### [facility] [address] [place] [address] [address] Apolonia Norwood ALP [Catalytic activity/Vol] 55 U/L Normal 46-116 [facility] Comment on above: Performed By: #### F T4 #### [facility] [address] [place] [address] [address] Apolonia Norwood ALT [Catalytic activity/Vol] 11 U/L Critically low 16-63 [facility] Comment on above: Performed By: #### F T4 #### [facility] [address] [place] [address] [address] Apolonia Norwood Anion gap [Moles/Vol] 12.8 mmol/L Normal Th [facility] Comment on above: Performed By: #### F T4 #### [facility] [address] [place] [address] Dr. Apolonia Norwood AST [Catalytic activity/Vol] 19 U/L Normal 15-37 [facility] Comment on above: Performed By: #### F T4 #### [facility] [address] [place] [address] Dr. Apolonia Norwood Bilirubin [Mass/Vol] 1.3 mg/dL Critically high 0.2-1.0 [facility] Comment on above: Performed By: #### F T4 #### [facility] [address] [place] [address] Dr. Apolonia Norwood Calcium [Mass/Vol] 8.2 mg/dL Critically low 8.5-10.1 [facility] Comment on above: Performed By: #### F T4 #### [facility] [address] [place] [address] Dr. Apolonia Norwood Chloride [Moles/Vol] 106 mmol/L Normal 98-107 [facility] Comment on above: Performed By: #### F T4 #### [facility] [address] [place] [address] Dr. Apolonia Norwood CO2 [Moles/Vol] 24.9 mmol/L Normal 21.0-32.0 [facility] Comment on above: Performed By: #### F T4 #### [facility] [address] [place] [address] Dr. Apolonia Norwood Creatinine [Mass/Vol] 1.10 mg/dL Normal 0.70-1.30 [facility] Comment on above: Performed By: #### F T4 #### [facility] [address] [place] [address] Dr. Apolonia Norwood EGFR-AF ZIMBABWEAN >60 Normal >=60 [facility] Comment on above: Performed By: #### F T4 #### [facility] [address] [place] [address] Dr. Apolonia Norwood EGFR-NON AF ZIMBABWEAN >60 Normal >=60 [facility] Comment on above: Performed By: #### F T4 #### [facility] [address] [place] [address] Dr. Apolonia Norwood Globulin (S) [Mass/Vol] 3.1 g/dL Normal [facility] Comment on above: Performed By: #### F T4 #### [facility] [address] [place] [address] Dr. Apolonia Norwood Glucose [Mass/Vol] 76 mg/dL Normal 74-106 [facility] Comment on above: Performed By: #### F T4 #### [facility] [address] [place] [address] Dr. Apolonia Norwood Potassium [Moles/Vol] 3.7 mmol/L Normal 3.5-5.1 [facility] Comment on above: Performed By: #### F T4 #### [facility] [address] [place] [address] Dr. Apolonia Norwood Protein [Mass/Vol] 6.0 g/dL Critically low 6.4-8.2 Th [facility] Comment on above: Performed By: #### F T4 #### [facility] [address] [place] [address] Dr. Apolonia Norwood Sodium [Moles/Vol] 140 mmol/L Normal 136-145 [facility] Comment on above: Performed By: #### F T4 #### [facility] [address] [place] [address] Dr. Apolonia Norwood Urea nitrogen [Mass/Vol] 15.0 mg/dL Normal 7.0-18.0 [facility] Comment on above: Performed By: #### F T4 #### [facility] [address] [place] [address] Dr. Apolonia Norwood Urea nitrogen/Creatinine [Mass ratio] 13.6 mg/mg Normal [facility] Comment on above: Performed By: #### F T4 #### [facility] [address] [place] [address] Dr. Apolonia Norwood XR ABD FLAT_UPon 01-07-2022 [...] YAJAIRA MISHRA Date: 2022-01-07 12:00 Normal [facility] AMYLASEon 01-06-2022 Amylase [Catalytic activity/Vol] 91 U/L Normal 25-115 [facility] Comment on above: Performed By: #### A MY, LIPA, CMP #### [facility] [address] [place] [address] Dr. Apolonia Norwood BILIRUBIN CONJUGATED (DIRECT )on 01-06-2022 BILI, CONJUGATED 0.3 mg/dL Critically high 0.0-0.2 [facility] Comment on above: Performed By: #### D KHALIF #### [facility] [address] [place] [address] Dr. Apolonia Norwood CBC AUTO DIFFon 01-06-2022 BASO # 0.1 103/ul Normal 0.0-0.1 [facility] Comment on above: Performed By: #### F T4 #### [facility] [address] [place] [address] Dr. Apolonia Norwood Basophils/100 WBC (Bld) 0.9 % Normal 0.2-2.0 [facility] Comment on above: Performed By: #### F T4 #### [facility] [address] [place] [address] Dr. Apolonia Norwood EO # 0.2 103/ul Normal 0.0-0.7 [facility] Comment on above: Performed By: #### F T4 #### [facility] [address] [place] [address] Dr. Apolonia Norwood Eosinophils/100 WBC (Bld) 2.2 % Normal 0.9-7.0 [facility] Comment on above: Performed By: #### F T4 #### [facility] [address] [place] [address] Dr. Apolonia Norwood Erythrocyte distribution width (RBC) [Ratio] 13.9 % Normal 11.0-15.0 [facility] Comment on above: Performed By: #### F T4 #### [facility] [address] [place] [address] Dr. Apolonia Norwood Hematocrit (Bld) [Volume fraction] 44.4 % Normal 42.0-54.0 [facility] Comment on above: Performed By: #### F T4 #### [facility] [address] [place] [address] Dr. Apolonia Norwood Hemoglobin (Bld) [Mass/Vol] 14.6 g/dL Normal 14.0-18.0 [facility] Comment on above: Performed By: #### F T4 #### [facility] [address] [place] [address] Dr. Apolonia Norwood IG # 0.03 10e3/ul Normal 0.00-0.03 [facility] Comment on above: Performed By: #### F T4 #### [facility] [address] [place] [address] Dr. Apolonia Norwood IG % 0.4 % Normal 0.0-0.5 [facility] Comment on above: Performed By: #### F T4 #### [facility] [address] [place] [address] Dr. Apolonia Norwood LYMPH # 1.4 103/ul Normal 1.2-3.8 [facility] Comment on above: Performed By: #### F T4 #### [facility] [address] [place] [address] Dr. Apolonia Norwood Lymphocytes/100 WBC (Bld) 17.4 % Critically low 20.5-60.0 [facility] Comment on above: Performed By: #### F T4 #### [facility] [address] [place] [address] Dr. Apolonia Norwood MANUAL DIFF REQ NO Normal [facility] Comment on above: Performed By: #### F T4 #### [facility] [address] [place] [address] Dr. Apolonia Norwood MCH (RBC) [Entitic mass] 33.0 pg Normal 25.9-34.0 [facility] Comment on above: Performed By: #### F T4 #### [facility] [address] [place] [address] Dr. Apolonia Norwood MCHC (RBC) [Mass/Vol] 32.9 g/dL Normal 29.9-35.2 [facility] Comment on above: Performed By: #### F T4 #### [facility] [address] [place] [address] Dr. Apolonia Norwood MCV (RBC) [Entitic vol] 100.2 fL Critically high 80.0-94.0 [facility] Comment on above: Performed By: #### F T4 #### [facility] [address] [place] [address] Dr. Apolonia Norwood MONO # 0.5 103/ul Normal 0.3-0.8 [facility] Comment on above: Performed By: #### F T4 #### [facility] [address] [place] [address] Dr. Apolonia Norwood Monocytes/100 WBC (Bld) 6.1 % Normal 1.7-12.0 [facility] Comment on above: Performed By: #### F T4 #### [facility] [address] [place] [address] Dr. Apolonia Norwood NEUT # 5.7 103/ul Normal 1.4-6.5 [facility] Comment on above: Performed By: #### F T4 #### [facility] [address] [place] [address] [address] Apolonia Norwood Neutrophils/100 WBC (Bld) 73.0 % Normal 43.0-75.0 [facility] Comment on above: Performed By: #### F T4 #### [facility] [address] [place] [address] Dr. Apolonia Norwood Platelet mean volume (Bld) [Entitic vol] 9.6 fL Normal 9.5-13.5 [facility] Comment on above: Performed By: #### F T4 #### [facility] [address] [place] [address] Dr. Apolonia Norwood PLT 215 103/ul Normal 150-450 [facility] Comment on above: Performed By: #### F T4 #### [facility] [address] [place] [address] Dr. Apolonia Norwood RBC 4.43 106/ul Critically low 4.70-6.10 [facility] Comment on above: Performed By: #### F T4 #### [facility] [address] [place] [address] Dr. Apolonia Norwood WBC 7.8 103/ul Normal 4.0-11.0 [facility] Comment on above: Performed By: #### F T4 #### [facility] [address] [place] [address] ABD/PELV W CONon 01-07-[address] ABD/PELV W CON EXAMINATION: CT ABD/ PELV W CON HISTORY: ABDOMINAL DISTENSION (GASEOUS) COMPARISON: None. TECHNIQUE: Axial CT of the abd/pelvis with IV contrast. Dose reduction techniques were achieved by using automated exposure control and/or adjustment of mA and/or kV according to patient size and/or use of iterative reconstruction technique. FINDINGS: Edi Specialist: No pertinent findings, which are not already [...] YE VALENTINE Date: 2022-01-06 17:17 Normal [facility]on SARS-CoV-2 (COVID-19) RNA LACY+probe Ql (Unsp spec) Not detected Normal NOT DETECTED [facility] Comment on above: Result Comment: When diagnostic [...] for this test is supported by the [place] of Health and Human Service's declaration that [...] used). Performed By: #### F T4 #### [facility] [address] [place] [address] Dr. Apolonia Norwood ER URINE PROFILEon 2 Bilirubin Ql (U) Negative Normal NEGATIVE [facility] Comment on above: Performed By: #### F T4 #### [facility] [address] [place] [address] Dr. Apolonia Norwood Clarity (U) CLEAR Normal CLEAR [facility] Comment on above: Performed By: #### F T4 #### [facility] [address] [place] [address] Dr. Apolonia Norwood Color (U) LT. YELLOW Normal YELLOW [facility] Comment on above: Performed By: #### F T4 #### [facility] [address] [place] [address] Dr. Apolonia Norwood ERUAHD A micrscopic examina tion will be performed if indicated. Normal [facility] Comment on above: Performed By: #### F T4 #### [facility] [address] [place] [address] Dr. Apolonia Norwood Glucose Ql (U) Negative Normal NEGATIVE [facility] Comment on above: Performed By: #### F T4 #### [facility] [address] [place] [address] Dr. Apolonia Norwood Hemoglobin Ql (U) Negative Normal NEGATIVE [facility] Comment on above: Performed By: #### F T4 #### [facility] [address] [place] [address] Dr. Apolonia Norwood Ketones Ql (U) TRACE Abnormal NEGATIVE [facility] Comment on above: Performed By: #### F T4 #### [facility] [facility] [address] [place] [address] Dr. Apolonia Norwood LEUKOCYTES Negative Normal NEGATIVE [facility] Comment on above: Performed By: #### F T4 #### [facility] [address] [place] [address] Dr. Apolonia Norwood Nitrite Ql (U) Negative Normal NEGATIVE [facility] Comment on above: Performed By: #### F T4 #### [facility] [address] [place] [address] Dr. Apolonia Norwood pH (U) 7.0 [pH] Normal 5-9 [facility] Comment on above: Performed By: #### F T4 #### [facility] [address] [place] [address] Dr. Apolonia Norwood SPEC GRAVITY 1.010 Normal 1.005-<=1.0 25 [facility] Comment on above: Performed By: #### F T4 #### [facility] [address] [place] [address] Dr. Apolonia Norwood UA PROTEIN Negative Normal NEGATIVE/ TRACE [facility] Comment on above: Performed By: #### F T4 #### [facility] [address] [place] [address] Dr. Apolonia Norwood UR MICRO IND NOT INDICATED Normal [facility] Comment on above: Performed By: #### F T4 #### [facility] [address] [place] [address] Dr. Apolonia Norwood Urobilinogen Qn (U) 2.0 {John'U}/dL Abnormal 0.2 - 1. 0 [facility] Comment on above: Performed By: #### F T4 #### [facility] [address] [place] [address] Dr. Apolonia Norwood LIPASEon 01-06-2022 Lipase [Catalytic activity/Vol] 92.0 U/L Normal 73.0-393.0 [facility] Comment on above: Performed By: #### A MY, LIPA, CMP #### [facility] [address] [place] [address] Dr. Apolonia Norwood PROF 14(COMP METB)on Albumin [Mass/Vol] 3.6 g/dL Normal 3.4-5.0 [facility] Comment on above: Performed By: #### A MY, LIPA, CMP #### [facility] [address] [place] [address] Dr. Apolonia Norwood Albumin/Globulin [Mass ratio] 0.9 {ratio} Normal [facility] Comment on above: Performed By: #### A JOSE LIPA, CMP #### [facility] [address] [address] [address] Apolonia Norwood ALP [Catalytic activity/Vol] 70 U/L Normal 46-116 [facility] Comment on above: Performed By: #### A MY LIPA, CMP #### [facility] [address] [address] [address] Apolonia Norwood ALT [Catalytic activity/Vol] 15 U/L Critically low 16-63 [facility] Comment on above: Performed By: #### A JOSE LIPA, CMP #### [facility] [address] [place] [address] Dr. Apolonia Norwood Anion gap [Moles/Vol] 13.1 mmol/L Normal [facility] Comment on above: Performed By: #### A JSOE LIPA, CMP #### [facility] [address] [place] [address] Dr. Apolonia Norwood AST [Catalytic activity/Vol] 21 U/L Normal 15-37 [facility] Comment on above: Performed By: #### A JOSE LIPA, CMP #### [facility] [address] [place] [address] Dr. Apolonia Norwood Bilirubin [Mass/Vol] 1.1 mg/dL Critically high 0.2-1.0 [facility] Comment on above: Performed By: #### A MY LIPA, CMP #### [facility] [address] [place] [address] Dr. Apolonia Norwood Calcium [Mass/Vol] 8.9 mg/dL Normal 8.5-10.1 [facility] Comment on above: Performed By: #### A MY LIPA, CMP #### [facility] [address] [place] [address] Dr. Apolonia Norwood Chloride [Moles/Vol] 107 mmol/L Normal 98-107 [facility] Comment on above: Performed By: #### A MY, LIPA, CMP #### [facility] [address] [address] [address] Apolonia Norwood CO2 [Moles/Vol] 24.6 mmol/L Normal 21.0-32.0 [facility] Comment on above: Performed By: #### A MY, LIPA, CMP #### [facility] [address] [address] [address] Apolonia Norwood Creatinine [Mass/Vol] 1.10 mg/dL Normal 0.70-1.30 [facility] Comment on above: Performed By: #### A MY, LIPA, CMP #### [facility] [address] [address] [address] Apolonia Norwood EGFR-AF ZIMBABWEAN >60 Normal >=60 [facility] Comment on above: Performed By: #### A MY, LIPA, CMP #### [facility] [address] [place] [address] Dr. Apolonia Norwood EGFR-NON AF ZIMBABWEAN >60 Normal >=60 [facility] Comment on above: Performed By: #### A MY, LIPA, CMP #### [facility] [address] [address] [address] Apolonia Norwood Globulin (S) [Mass/Vol] 3.9 g/dL Normal [facility] Comment on above: Performed By: #### A MY, LIPA, CMP #### [facility] [address] [address] [address] Apolonia Norwood Glucose [Mass/Vol] 85 mg/dL Normal 74-106 [facility] Comment on above: Performed By: #### A MY, LIPA, CMP #### [facility] [address] [address] [address] Apolonia Norwood Potassium [Moles/Vol] 3.7 mmol/L Normal 3.5-5.1 [facility] Comment on above: Performed By: #### A MY, LIPA, CMP #### [facility] [address] [address] [address] Apolonia Norwood Protein [Mass/Vol] 7.5 g/dL Normal 6.4-8.2 [facility] Comment on above: Performed By: #### A MY, LIPA, CMP #### [facility] [address] [address] [address] Apolonia Norwood Sodium [Moles/Vol] 141 mmol/L Normal 136-145 [facility] Comment on above: Performed By: #### A MY, LIPA, CMP #### [facility] [address] [address] [address] Apolonia Norwood Urea nitrogen [Mass/Vol] 13.0 mg/dL Normal 7.0-18.0 [facility] Comment on above: Performed By: #### A MY, LIPA, CMP #### [facility] [address] [address] [address] Apolonia Norwood Urea nitrogen/Creatinine [Mass ratio] 11.8 mg/mg Normal [facility] Comment on above: Performed By: #### A MY, LIPA, CMP #### [facility] [address] [address] [address] Apolonia Norwood CBCon 11-15-2021 HCT Canceled Normal [facility]3] Comment on above: Order Comment: TEST CBC WAS CANCELLED, 11/15/2021 04:14 Performed By: #### C BC #### [facility] [address] [place] [address] HGB Canceled Normal [facility]3] Comment on above: Order Comment: TEST CBC WAS CANCELLED, 11/15/2021 04:14 Performed By: #### C BC #### [facility] [address] [place] [address] MCHC Canceled Normal [facility]3] Comment on above: Order Comment: TEST CBC WAS CANCELLED, 11/15/2021 04:14 Performed By: #### C BC #### [facility] [address] [place] [address] MCV Canceled Normal [facility]3] Comment on above: Order Comment: TEST CBC WAS CANCELLED, 11/15/2021 04:14 Performed By: #### C BC #### [facility] [address] [place] [address] NUCLEATED RBC Canceled Normal [facility]3] Comment on above: Order Comment: TEST CBC WAS CANCELLED, 11/15/2021 04:14 Performed By: #### C BC #### [facility] [address] [place] [address] PLT Canceled Normal [facility]3] Comment on above: Order Comment: TEST CBC WAS CANCELLED, 11/15/2021 04:14 Performed By: #### C BC #### [facility] [address] [place] [address] RBC Canceled Normal [facility]3] Comment on above: Order Comment: TEST CBC WAS CANCELLED, 11/15/2021 04:14 Performed By: #### C BC #### [facility] [address] [place] [address] RDW-CV Canceled Normal [facility]3] Comment on above: Order Comment: TEST CBC WAS CANCELLED, 11/15/2021 04:14 Performed By: #### C BC #### [facility] [address] [place] [address] WBC Canceled Normal [facility]3] Comment on above: Order Comment: TEST CBC WAS CANCELLED, 11/15/2021 04:14 Performed By: #### C BC #### [facility] [address] [place] [address] COAGULATION SCREENon 022 APTT Canceled Normal [facility]3] Comment on above: Order Comment: TEST COAGULATION SCREEN WAS CANCELLED, 11/15/2021 04:14 Result Comment: THE APTT IS NO LONGER USED FOR MONITORING UNFRACTIONATED HEPARIN THERAPY. FOR MONITORING HEPARIN THERAPY, USE THE HEPARIN ASSAY. Performed By: #### C OAGS #### [facility] [address] [place] [address] PROTHROMBIN TIME Canceled Normal [facility]3] Comment on above: Order Comment: TEST COAGULATION SCREEN WAS CANCELLED, 11/15/2021 04:14 Performed By: #### C OAGS #### [facility] [address] [place] [address] PT, INR Canceled Normal [facility]3] Comment on above: Order Comment: TEST COAGULATION SCREEN WAS CANCELLED, 11/15/2021 04:14 Performed By: #### C OAGS #### [facility] [address] [place] [address] MAGNESIUMon 11-15-2021 MAGNESIUM Canceled Normal [facility]3] Comment on above: Order Comment: TEST MAGNESIUM WAS CANCELLED, 11/15/2021 04:14 Performed By: #### M G #### [facility] [address] [place] [address] RENAL FUNCTION PANELon 11-15 ALBUMIN Canceled Normal [facility]3] Comment on above: Order Comment: TEST RENAL FUNCTION PANEL WAS CANCELLED, 11/15/2021 04:14 Performed By: #### R ENAL #### [facility] [address] [place] [address] ANION GAP Canceled Normal [facility]3] Comment on above: Order Comment: TEST RENAL FUNCTION PANEL WAS CANCELLED, 11/15/2021 04:14 Performed By: #### R ENAL #### [facility] [address] [place] [address] BICARBONATE Canceled Normal [facility]3] Comment on above: Order Comment: TEST RENAL FUNCTION PANEL WAS CANCELLED, 11/15/2021 04:14 Performed By: #### R ENAL #### [facility] [address] [place] [address] CALCIUM Canceled Normal [facility]3] Comment on above: Order Comment: TEST RENAL FUNCTION PANEL WAS CANCELLED, 11/15/2021 04:14 Performed By: #### R ENAL #### [facility] [address] [place] [address] CHLORIDE Canceled Normal [facility]3] Comment on above: Order Comment: TEST RENAL FUNCTION PANEL WAS CANCELLED, 11/15/2021 04:14 Performed By: #### R ENAL #### [facility] [address] [place] [address] CREATININE Canceled Normal [facility]3] Comment on above: Order Comment: TEST RENAL FUNCTION PANEL WAS CANCELLED, 11/15/2021 04:14 Performed By: #### R ENAL #### [facility] [address] [place] [address] eGFR FEMALE Canceled Normal [facility]3] Comment on above: Order Comment: TEST RENAL FUNCTION PANEL WAS CANCELLED, 11/15/2021 04:14 Result Comment: CALC ULATIONS OF ESTIMATED GFR ARE PERFORMED USING THE 2020 CKD-EPI STUDY REFIT EQUATION WITHOUT THE RACE VARIABLE FOR THE IDMS-TRACEABLE CREATININE METHODS. https://jasn.asnjournals.org/content/early/ASN.41087 41398 Performed By: #### R ENAL #### [facility] [address] [place] [address] eGFR MALE Canceled Normal [facility]3] Comment on above: Order Comment: TEST RENAL FUNCTION PANEL WAS CANCELLED, 11/15/2021 04:14 Result Comment: CALC ULATIONS OF ESTIMATED GFR ARE PERFORMED USING THE 2020 CKD-EPI STUDY REFIT EQUATION WITHOUT THE RACE VARIABLE FOR THE IDMS-TRACEABLE CREATININE METHODS. https://jasn.asnjournals.org/content/early/ASN.95143 21155 Performed By: #### R ENAL #### [facility] [address] [place] [address] GLUCOSE Canceled Normal [facility]3] Comment on above: Order Comment: TEST RENAL FUNCTION PANEL WAS CANCELLED, 11/15/2021 04:14 Performed By: #### R ENAL #### [facility] [address] [place] [address] PHOSPHORUS Canceled Normal [facility]3] Comment on above: Order Comment: TEST RENAL FUNCTION PANEL WAS CANCELLED, 11/15/2021 04:14 Result Comment: The performance characteristics of phosphorus testing in heparinized plasma have been validated by the individual laboratory site where testing is performed. Testing on heparinized plasma is not approved by the FDA; however, such approval is not necessary. Performed By: #### R ENAL #### [facility] [address] [place] [address] POTASSIUM Canceled Normal [facility]3] Comment on above: Order Comment: TEST RENAL FUNCTION PANEL WAS CANCELLED, 11/15/2021 04:14 Performed By: #### R ENAL #### [facility] [address] [place] [address] SODIUM Canceled Normal [facility]3] Comment on above: Order Comment: TEST RENAL FUNCTION PANEL WAS CANCELLED, 11/15/2021 04:14 Performed By: #### R ENAL #### [facility] [address] [place] [address] UREA NITROGEN Canceled Normal [facility]3] Comment on above: Order Comment: TEST RENAL FUNCTION PANEL WAS CANCELLED, 11/15/2021 04:14 Performed By: #### R ENAL #### [facility] [address] [place] [address] Clinical Event Noteon 2021 Clinical Event Note [...] as specified above. Benoit Arroyo MD pager [phone] Plan of Care Reviewed Withfamily Electronic Signatures: Benoit Arroyo) (Signed 14-Nov-2021 14:53) Authored: Clinical Event Note Last Updated: 14-Nov-2021 14:53 by Benoit Arroyo) Normal [facility]3] Electrocardiogram 12 Leadon 11-14-2021 Electrocardiogram 12 Lead Ventricular Rate 66 Atrial Rate 66 P-R Interval 136 QRS Duration 154 Q-T Interval 476 QTC Calculation(Bazett) 499 R Stowell 86 T Stowell -67 QRS Count 11 Q Onset 195 P Onset 127 P Offset 183 T Offset 433 QTC Fredericia 491 Diagnosis Class Abnormal Diagnosis Atrial-sensed ventricular-paced rhythm Abnormal ECG When compared with ECG of 09-SEP-2021 11:46, Vent. rate has decreased BY 8 BPM Confirmed by Quintin Calderon ([id number]) on 01/03/2022 8:15:07 AM Normal [facility]3] Intraoperative Transesophage al Echoon 11-14-2021 Intraoperative Transesophageal Echo [facility], [address] [place] [address] and TRANSTHORACIC ECHOCARDIOGRAM REPORT Patient Name: CORKY DUENAS Ki Physician: [id number] Laurent Gamez MD Study Date: 11/14/2021 Referring BISHOP HAGER Physician: MRN/PID: [id number] PCP: Accession/Order#: [id number] Department [facility] Cath Location: Lab Date of : 1950 Fellow: [id number] Alex Marie MD Gender: M Nurse: Admit Date: 11/14/2021 Panel Raiser Operator: Nasim Bowens [facility] Admission Status: Inpatient - Additional Staff: Routine Height: 167.64 cm CC Report to: Weight: 58.00 kg Study Type: Intraoperative Transesophageal Echo BSA: 1.65 m2 Blood Pressure: 132 /68 mmHg Diagnosis/ICD: I34.0-Nonrheumatic mitral (valve) insufficiency Indication: Mitraclip Procedure Procedure/CPT: Echocardiography, Transesophageal (LUCAS) for Guidance of a Transcatheter Intracardiac or Great Vessel(s) Structural Intervention(s)-81701 Patient History: 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 Study Detail: The following Echo studies were performed: 2D, M-Mode, color flow and Doppler. Image quality for this study is adequate. Technically challenging study due to body habitus and patient lying in supine position. PHYSICIAN INTERPRETATION: LUCAS Details: The LCUAS probe used was X8. Technically adequate omniplane [...] in the descending aorta. QUANTITATIVE DATA SUMMARY: [id number] Laurent Gamze MD Electronically signed on 11/15/2021 at 8:20:56 AM Final Normal [facility]3] No Panel Informationon 11-14 [facility] [address] [place] Work Phone: Please click on the link to view the study images Normal [facility] [address] [place] Work Phone: Order Reconciliationon 11-14 Order Reconciliation Page 1 Discharge Reconciliation Document Reconciliation Type: Discharge requested on behalf of Alex Cheng (Fellow) done by Alex Cheng (MD (Fellow)) Discharge - Reconciliation: 14-Nov-2021 17:16 by: [...] present, witho (more content not included)... Normal [facility]3] Order Reconciliation Page 1 Admission Reconciliation Document Reconciliation Type: Admission requested on behalf of Lissa Spears (Advanced Practice Nurse) done by Lissa Spears (SUPPORT SERVICES REP-[employer] SUPERVISOR) Admission - Reconciliation: 14-Nov-2021 12:45 by: Lissa Spears (SUPPORT SERVICES REP-[employer] SUPERVISOR) Home MedicationsEnteredLast Dose TakenReconciled with current Order Reconciliation Comment/ Additional Information carvedilol 12.5 mg oral tablet 1.5 tab(s) orally 2 times a [id number]-Nov-2021 Reviewed and Held cholecalciferol 50 mcg (2000 intl units) oral tablet 1 tab(s) orally once a day PM Reviewed and Held digoxin 125 mcg (0.125 mg) oral tablet 1 tab(s) orally once a [id number]-Nov-2021 PM Reviewed and Held furosemide 40 mg oral tablet 1 tab(s) orally once a [id number] PM Reviewed and Held levothyroxine 300 mcg (0.3 mg) oral tablet 1 tab(s) orally once a day Levothyroxine TabletDOSE = 300 microgram(s) Oral Dailylevothyroxine 300 mcg (0.3 mg) oral tablet continued as the inpatient order Levothyroxine magnesium oxide 400 mg oral tablet 1 tab(s) orally once a [id number]-Nov-2021 Reviewed and Held Multiple Vitamins with Iron oral tablet 1 tab(s) orally once a [id number]-Nov-2021 Reviewed and Held sacubitril-valsartan 97 mg-103 mg [...] Hours, PRN Pain - Mod (4-6) Normal [facility]3] CORONAVIRUS 2019, SCREEN ASY MPTOMATICon 11-11-2021 SARS-CoV-2 (COVID-19) RNA LACY+probe Ql (Unsp spec) Not detected Normal Not Detected [facility]3] Comment on above: Result Comment: . This [...] patient management decisions. Fact sheet for providers: https://www.fda.gov/media/605962/download Fact sheet for patients: https://www.fda.gov/media/228788/download This test has received FDA Emergency Use Authorization (EUA) and has been verified by [facility] ([facility]). This test is only authorized for the duration of time that circumstances exist to justify the authorization of the emergency use of in vitro diagnostic tests for the detection of SARS-CoV-2 virus and/or diagnosis of COVID-19 infection under section 564(b)(1) of the Act, 21 U.S.C. 360bbb-3(b)(1), unless the authorization is terminated or revoked sooner. [facility] is certified under CLIA-88 as qualified to perform high complexity testing. Testing is performed in the [facility] laboratories located at [address] [place] [address]. Performed By: #### C OAGS #### [facility] [id number] [place] [address] Lab Specimen Source Nasal, Nasopharyngeal Normal [facility]3] Comment on above: Performed By: #### C OAGS #### [facility] [address] [id number] Coronavirus 2019 RNA by PCR, Screening Asymptomticon 11-11-2021 Coronavirus 2019 RNA by PCR, Screening Asymptomtic Not detected Normal See Below [facility] [address] [place] Work Phone: Comment [...] make patient management decisions.Fact sheet for providers: https://www.fda.gov/media/276662/downloadFact sheet for patients: https://www.fda.gov/media/920893/downloadThis test has received FDA Emergency Use Authorization (EUA) and has been verified by [facility] ([facility]). This test is only authorized for the duration of time that circumstances exist to justify the authorization of the emergency use of in vitro diagnostic tests for the detection of SARS-CoV-2 virus and/or diagnosis of COVID-19 infection under section 564(b)(1) of the Act, 21 U.S.C. 360bbb-3(b)(1), unless the authorization is terminated or revoked sooner. [facility] is certified under CLIA-88 as qualified to perform high complexity testing. Testing is performed in the [facility] laboratories located at [address] [place] [address]. Covid 19 Resultson 2 SARS-CoV-2 (COVID-19) RNA [...] You may also be contacted by the [place] [facility] to see if any of your close [...] or Naproxen (Aleve) can also be used. Kbgk-whz-bagscdx cough and cold medicines can be used according to the instructions on the package. Some hwjn-qad-ohhemps medicines also contain acetaminophen. Make sure you [...] water are not available, use alcohol-based hand embedded nurse. Avoid touching your eyes, nose, and mouth [...] 24 amber (more content not included)... Normal [facility]3] ARTERIAL BLOOD GAS,CO-OXon 0 10-31-2021 BASE EXCESS-BLOOD 1.3 mmol/L Normal -2.0 - 3.0 [facility]3] Comment on above: Performed By: #### C OAGS #### [facility] [address] [place] [address] BICARB, CALCULATED 25.0 mmol/L Normal 22.0 - 26.0 [facility]3] Comment on above: Performed By: #### C OAGS #### [facility] [address] [place] [address] CO HGB 1.7 % Abnormal [facility]3] Comment on above: Result Comment: REF VALUES NONSMOKERS 0.5-1.5% SMOKERS 0.5-10.0% Performed By: #### C OAGS #### [facility] [address] [place] [address] DEOXY HGB 1.5 % Normal 0.0 - 5.0 [facility]3] Comment on above: Performed By: #### C OAGS #### [facility] [address] [place] [address] Hemoglobin (Bld) [Mass/Vol] 15.9 g/dL Normal 13.5 - 17.5 [facility]3] Comment on above: Performed By: #### C OAGS #### [facility] [address] [place] [address] MET HGB 1.2 % Normal 0.0 - 1.5 [facility]3] Comment on above: Performed By: #### C OAGS #### [facility] [address] [place] [address] OXY HGB 95.6 % Normal 94.0 - 98.0 [facility]3] Comment on above: Performed By: #### C OAGS #### [facility] [address] [place] [address] Oxygen (Bld) [Partial pressure] 94 mm[Hg] Normal 85 - 95 [facility]3] Comment on above: Performed By: #### C OAGS #### [facility] [address] [place] [address] PATIENT TEMPERATURE 37.0 degrees C Normal [facility] Comment on above: Result Comment: NOTE : PATIENT RESULTS ARE NOT CORRECTED FOR TEMPERATURE. Performed By: #### C OAGS #### [facility] [address] [place] [address] PCO2 36 mmHg Low 38 - 42 [facility]3] Comment on above: Performed By: #### C OAGS #### [facility] [address] [place] [address] pH (Bld) 7.45 [pH] High 7.38 - 7.42 [facility]3] Comment on above: Performed By: #### C OAGS #### [facility] [address] [place] [address] SO2 99 % Normal 94 - 100 [facility]3] Comment on above: Performed By: #### C OAGS #### [facility] [address] [place] [address] CBC AND DIFFERENTIALon 10-31 % AUTOMATED IMMATURE GRAN 0.6 % Normal 0.0 - 0.9 [facility]3] Comment on above: Result Comment: Misa ture Granulocyte Count (IG) includes promyelocytes, myelocytes and metamyelocytes but does not include bands. Percent differential counts (%) should be interpreted in the context of the absolute cell counts (cells/L). Performed By: #### C BCDF #### [facility] [address] [place] [address] Basophils (Bld) [#/Vol] 0.05 10*3/uL Normal 0.00 - 0.10 [facility]3] Comment on above: Performed By: #### C BCDF #### [facility] [address] [place] [address] Basophils/100 WBC (Bld) 0.8 % Normal 0.0 - 2.0 [facility]3] Comment on above: Performed By: #### C BCDF #### [facility] [address] [place] [address] Eosinophils (Bld) [#/Vol] 0.16 10*3/uL Normal 0.00 - 0.70 [facility]3] Comment on above: Performed By: #### C BCDF #### [facility] [address] [place] [address] Eosinophils/100 WBC (Bld) 2.5 % Normal 0.0 - 6.0 [facility]3] Comment on above: Performed By: #### C BCDF #### [facility] [address] [place] [address] Erythrocyte distribution width (RBC) [Ratio] 14.4 % Normal 11.5 - 14.5 [facility]3] Comment on above: Performed By: #### C BCDF #### [facility] [address] [place] [address] Hematocrit (Bld) [Volume fraction] 51.4 % Normal 41.0 - 52.0 [facility]3] Comment on above: Performed By: #### C BCDF #### [facility] [address] [place] [address] Hemoglobin (Bld) [Mass/Vol] 16.6 g/dL Normal 13.5 - 17.5 [facility]3] Comment on above: Performed By: #### C BCDF #### [facility] [address] [place] [address] Lymphocytes (Bld) [#/Vol] 1.11 10*3/uL Low 1.20 - 4.80 [facility]3] Comment on above: Performed By: #### C BCDF #### [facility] [address] [place] [address] Lymphocytes/100 WBC (Bld) 17.0 % Normal 13.0 - 44.0 [facility]3] Comment on above: Performed By: #### C BCDF #### [facility] [address] [place] [address] MCHC (RBC) [Mass/Vol] 32.3 g/dL Normal 32.0 - 36.0 [facility]3] Comment on above: Performed By: #### C BCDF #### [facility] [address] [place] [address] MCV (RBC) [Entitic vol] 101 fL High 80 - 100 [facility]3] Comment on above: Performed By: #### C BCDF #### [facility] [address] [place] [address] Monocytes (Bld) [#/Vol] 0.56 10*3/uL Normal 0.10 - 1.00 [facility]3] Comment on above: Performed By: #### C BCDF #### [facility] [address] [place] [address] Monocytes/100 WBC (Bld) 8.6 % Normal 2.0 - 10.0 [facility]3] Comment on above: Performed By: #### C BCDF #### [facility] [address] [place] [address] Neutrophils (Bld) [#/Vol] 4.60 10*3/uL Normal 1.20 - 7.70 [facility]3] Comment on above: Performed By: #### C BCDF #### [facility] [address] [place] [address] Neutrophils/100 WBC (Bld) 70.5 % Normal 40.0 - 80.0 [facility]3] Comment on above: Performed By: #### C BCDF #### [facility] [address] [place] [address] NUCLEATED RBC 0.0 /100 WBC Normal 0.0-0.0 [facility]3] Comment on above: Performed By: #### C BCDF #### [facility] [address] [place] [address] Platelets (Bld) [#/Vol] 242 10*3/uL Normal 150 - 450 [facility]3] Comment on above: Performed By: #### C BCDF #### [facility] [address] [place] [address] RBC 5.11 x10E12/L Normal 4.50 - 5.90 [facility]3] Comment on above: Performed By: #### C BCDF #### [facility] [address] [place] [address] WBC (Bld) [#/Vol] 6.5 10*3/uL Normal 4.4 - 11.3 [facility]3] Comment on above: Performed By: #### C BCDF #### [facility] [address] [place] [address] COAGULATION SCREENon 022 aPTT Coag (Bld) [Time] 37 s Normal 26 - 39 [facility]3] Comment on above: Result Comment: THE APTT IS NO LONGER USED FOR MONITORING UNFRACTIONATED HEPARIN THERAPY. FOR MONITORING HEPARIN THERAPY, USE THE HEPARIN ASSAY. Performed By: #### C OAGS #### [facility] [address] [place] [address] PT Coag (PPP) [Time] 12.2 s Normal 9.8 - 13.4 [facility]3] Comment on above: Performed By: #### C OAGS #### [facility] [address] [place] [address] PT, INR 1.1 Normal 0.9 - 1.1 [facility]3] Comment on above: Performed By: #### C OAGS #### [facility] [address] [place] [address] COMPREHENSIVE PANELon 2021 Albumin [Mass/Vol] 4.3 g/dL Normal 3.4 - 5.0 [facility]3] Comment on above: Performed By: #### C MP #### [facility] [address] [place] [address] ALP [Catalytic activity/Vol] 75 U/L Normal 33 - 136 [facility]3] Comment on above: Performed By: #### C MP #### [facility] [address] [place] [address] ALT [Catalytic activity/Vol] 15 U/L Normal 10 - 52 [facility]3] Comment on above: Result Comment: Brittani ents treated with Sulfasalazine may generate falsely decreased results for ALT. Performed By: #### C MP #### [facility] [address] [place] [address] Anion gap [Moles/Vol] 17 mmol/L Normal 10 - 20 [facility]3] Comment on above: Performed By: #### C MP #### [facility] [address] [place] [address] AST [Catalytic activity/Vol] 21 U/L Normal 9 - 39 [facility]3] Comment on above: Performed By: #### C MP #### [facility] [address] [place] [address] Bilirubin [Mass/Vol] 1.0 mg/dL Normal 0.0 - 1.2 [facility]3] Comment on above: Performed By: #### C MP #### [facility] [address] [place] [address] Calcium [Mass/Vol] 9.3 mg/dL Normal 8.6 - 10.6 [facility]3] Comment on above: Performed By: #### C MP #### [facility] [address] [place] [address] Chloride [Moles/Vol] 103 mmol/L Normal 98 - 107 [facility]3] Comment on above: Performed By: #### C MP #### [facility] [address] [place] [address] Creatinine [Mass/Vol] 1.35 mg/dL High 0.50 - 1.30 [facility]3] Comment on above: Performed By: #### C MP #### [facility] [address] [place] [address] GFR/1.73 sq M.predicted among non-blacks MDRD (S/P/Bld) [Vol rate/Area] 57 mL/min/{1.73_m2} Abnormal >90 [facility]3] Comment on above: Result Comment: CALC ULATIONS OF ESTIMATED GFR ARE PERFORMED USING THE 2020 CKD-EPI STUDY REFIT EQUATION WITHOUT THE RACE VARIABLE FOR THE IDMS-TRACEABLE CREATININE METHODS. https://jasn.asnjournals.org/content//ASN.95549 84369 Performed By: #### C MP #### [facility] [address] [place] [address] Glucose [Mass/Vol] 88 mg/dL Normal 74 - 99 [facility]3] Comment on above: Performed By: #### C MP #### [facility] [address] [place] [address] HCO3 (Bld) [Moles/Vol] 25 mmol/L Normal 21 - 32 [facility]3] Comment on above: Performed By: #### C MP #### [facility] [address] [place] [address] Potassium [Moles/Vol] 5.0 mmol/L Normal 3.5 - 5.3 [facility]3] Comment on above: Performed By: #### C MP #### [facility] [address] [place] [address] Protein [Mass/Vol] 7.3 g/dL Normal 6.4 - 8.2 [facility]3] Comment on above: Performed By: #### C MP #### [facility] [address] [place] [address] Sodium [Moles/Vol] 140 mmol/L Normal 136 - 145 [facility]3] Comment on above: Performed By: #### C MP #### [facility] [address] [place] [address] Urea nitrogen [Mass/Vol] 12 mg/dL Normal 6 - 23 [facility]3] Comment on above: Performed By: #### C MP #### [facility] [address] [place] [address] Complete Blood Count + Diffe eboni 10-31-2021 Basophils/100 WBC (Bld) 0.8 % 0.0 - 2.0 [facility] 6 Work Phone: Erythrocyte distribution width (RBC) [Ratio] 14.4 % See Below [facility] 6 Work Phone: Comment on above: Reference Range: 11. 5 - 14.5 Hematocrit (Bld) [Volume fraction] 51.4 % See Below [facility] [place] [address] Work Phone: [phone] Comment on above: Reference Range: 41. 0 - 52.0 Hemoglobin (Bld) [Mass/Vol] 16.6 g/dL See Below [facility] 6 Work Phone: Comment on above: Reference Range: 13. 5 - 17.5 Lymphocytes/100 WBC (Bld) 17.0 % See Below [facility] 6 Work Phone: [phone] Comment on above: Reference Range: 13. 0 - 44.0 MCHC (RBC) [Mass/Vol] 32.3 g/dL See Below [facility]- [facility] Sleep-[facility] [place] 6 Work Phone: [phone] Comment on above: Reference Range: 32. 0 - 36.0 MCV (RBC) [Entitic vol] 101 fL above high threshold 80 - 100 [facility] 6 Work Phone: [phone] Monocytes/100 WBC (Bld) 8.6 % 2.0 - 10.0 [facility] 6 Work Phone: [phone] Neutrophils/100 WBC (Bld) 70.5 % See Below [facility] 6 Work Phone: Comment on above: Reference Range: 40. 0 - 80.0 Platelets (Bld) [#/Vol] 242 10*3/uL 150 - 450 [facility] 6 Work Phone: [phone] RBC (Bld) [#/Vol] 5.11 {x10E12/L} See Below [facility] 6 Work Phone: [phone] Comment on above: Reference Range: 4.5 0 - 5.90 WBC (Bld) [#/Vol] 6.5 10*3/uL 4.4 - 11.3 [facility] 6 Work Phone: Complete Blood Count + Differential [...] 2.5 % 0.0 - 6.0 [facility] Work Phone: Complete Blood Count + Differential [...] group Nom (Bld) O [facility]Pu l[facility] 6 Work Phone: Blood group antibody screen Ql Negative [facility] 6 Work Phone: Rh immune globulin screen (Bld) [Interp] Positive [facility] [place] [address] Work Phone: [phone] Laboratory - Chemistry and C hemistry - challengeon 10-31-2021 Albumin BCP dye [Mass/Vol] 4.3 g/dL 3.4 - 5.0 [facility] [place] [address] Work Phone: [phone] ALP [Catalytic activity/Vol] 75 U/L 33 - 136 [facility] 6 Work Phone: [phone] ALT With P-5'-P [Catalytic activity/Vol] 15 U/L 10 - 52 [facility] [place] [address] Work Phone: [phone] Comment on above: Patients treated wit h Sulfasalazine may generate falsely decreased results for ALT. Anion gap [Moles/Vol] 17 mmol/L 10 - 20 [facility] [place] [address] Work Phone: [phone] AST With P-5'-P [Catalytic activity/Vol] 21 U/L 9 - 39 [facility] [place] [address] Work Phone: [phone] Bilirubin [Mass/Vol] 1.0 mg/dL 0.0 - 1.2 [facility] [place] [address] Work Phone: [phone] Calcium [Mass/Vol] 9.3 mg/dL 8.6 - 10.6 [facility] [place] [address] Work Phone: [phone] Chloride [Moles/Vol] 103 mmol/L 98 - 107 [facility] [place] [address] Work Phone: [phone] CO2 [Moles/Vol] 25 mmol/L 21 - 32 [facility] 6 Work Phone: [phone] Creatinine [Mass/Vol] 1.35 mg/dL above high threshold See Below [facility] 6 Work Phone: [phone] Comment on above: Reference Range: 0.5 0 - 1.30 Glucose [Mass/Vol] 88 mg/dL 74 - 99 [facility] [place] [address] Work Phone: [phone] Potassium [Moles/Vol] 5.0 mmol/L 3.5 - 5.3 [facility] [place] [address] Work Phone: [phone] Protein [Mass/Vol] 7.3 g/dL 6.4 - 8.2 [facility] [place] [address] Work Phone: [phone] Sodium [Moles/Vol] 140 mmol/L 136 - 145 [facility] [place] [address] Work Phone: [phone] Urea nitrogen [Mass/Vol] 12 mg/dL 6 - 23 [facility] [place] [address] Work Phone: [phone] Base excess Calc (Bld) [Moles/Vol] 1.3 mmol/L -2.0 - 3.0 [facility] [address] [place] Work Phone: [phone] Carboxyhemoglobin (BldA) [Mass fraction] 1.7 % Abnormal [facility] [address] [place] Work Phone: [phone] Comment on above: REF VALUESNONSMOKERS 0.5-1.5%SMOKERS 0.5-10.0% CO2 (Bld) [Partial pressure] 36 mm[Hg] below low threshold 38 - 42 [facility] [address] [place] Work Phone: [phone] HCO3 (Bld) [Moles/Vol] 25.0 mmol/L See Below M [facility] [address] [place] Work Phone: [phone] Comment on above: Reference Range: 22. 0 - 26.0 Methemoglobin (BldA) [Mass fraction] 1.2 % 0.0 - 1.5 [facility] [address] [place] Work Phone: [phone] Oxygen (Bld) [Partial pressure] 94 mm[Hg] 85 - 95 [facility] [address] [place] Work Phone: Oxyhemoglobin (BldA) [Mass fraction] 95.6 % See Below [facility] [address] [place] Work Phone: Comment on above: Reference Range: 94. 0 - 98.0 pH (Bld) 7.45 [pH] above high threshold See Below [facility] [address] [place] Work Phone: Comment on above: Reference Range: 7.3 8 - 7.42 Laboratory - Coagulationon 0 10-31-2021 aPTT Coag (PPP) [Time] 37 s 26 - 39 [facility] [place] [address] Work Phone: Comment on above: THE APTT IS NO LONGE R USED FOR MONITORING UNFRACTIONATED HEPARIN THERAPY. FOR MONITORING HEPARIN THERAPY, USE THE HEPARIN ASSAY. INR Coag (PPP) [Relative time] 1.1 {INR} 0.9 - 1.1 [facility] [place] [address] Work Phone: PT Coag (PPP) [Time] 12.2 s 9.8 - 13.4 [facility] [place] [address] Work Phone: Laboratory - Hematology and Cell countson 10-31-2021 Deoxyhemoglobin (BldA) [Mass fraction] 1.5 % 0.0 - 5.0 [facility] [address] [place] Work Phone: Hemoglobin (Bld) [Mass/Vol] 15.9 g/dL See Below [facility] [address] [place] Work Phone: Comment on above: Reference Range: 13. 5 - 17.5 MRSA Screenon 10-31-2021 Staphylococcus sp identified Org specific cx Nom (Unsp spec) Abnormal [facility] [address] [place] Work Phone: No Panel Informationon 10-31 57 {mL/min/1.73m2} Abnormal >90 [facility] [place] [address] Work Phone: Comment on above: CALCULATIONS OF AYANA MATED GFR ARE PERFORMED USING THE 2020 CKD-EPI STUDY REFIT EQUATION WITHOUT THE RACE VARIABLE FOR THE IDMS-TRACEABLE CREATININE METHODS.https://jasn.asnjournals.org/content/early/A SN.0147432919 Radiologyon 10-31-2021 XR Chest 2 Views Normal [facility] Work Phone: STAPH/MRSA SCREENon 11-01-19 STAPH/MRSA SCREEN PATIENT: BETTY DUENAS LOCATION: [facility]#: [id number] : 54 AGE: SEX: M ORDERED BY: MURPHY GARCIA SOURCE: ANTERIOR NARES COLLECTED: 10/31/21 14:24 ANTIBIOTICS AT [facility].: RECEIVED : 10/31/21 17:18 SITE: Nasal R E S U L T S STAPH/MRSA SCREEN FINAL 11/02/21 08:51 ISOLATE1 : Staphylococcus aureus METHICILLIN SENSITIVE STAPHYLOCOCCUS AUREUS (MSSA) Normal [facility]3] Comment on above: Performed By: #### S TAPH #### [facility] [address] [place] [address] TH CHEST 2 VIEW PA AND LATon 10-31-2021 TH CHEST 2 VIEW PA AND LAT Patient Name: CORKY DUENAS STUDY: TH CHEST 2 VIEW PA AND LAT; 10/31/2021 3:06 pm INDICATION: dyspnea . COMPARISON: 06/10/2020 ACCESSION NUMBER(S): [id number] ORDERING CLINICIAN: CRISTOBAL GARCIA FINDINGS: PA and [...] as stated. This study was interpreted at [facility], [place], [place]. Electronically signed by: JEFF CRESPO MD Normal [facility]3] TYPE + SCREENon 10-31-2021 ABO TYPE O Normal [facility]3] Comment on above: Performed By: #### T +S #### [facility] [address] [place] [address] RH TYPE Positive Normal [facility]3] Comment on above: Performed By: #### T +S #### [facility] [address] [place] [address] URINALYSIS WITH CULTURE IF I NDICATEDon 10-31-2021 Appearance (U) CLEAR Normal CLEAR [facility]3] Comment on above: Performed By: #### U ARFX #### [facility] [address] [place] [address] Bilirubin Ql (U) Negative Normal NEGATIVE [facility]3] Comment on above: Performed By: #### U ARFX #### [facility] [address] [place] [address] Color (U) YELLOW Normal STRAW,YELLO W [facility]3] Comment on above: Performed By: #### U ARFX #### [facility] [address] [place] [address] Glucose Ql (U) Negative Normal NEGATIVE [facility]3] Comment on above: Performed By: #### U ARFX #### [facility] [address] [place] [address] Hemoglobin Ql (U) Negative Normal NEGATIVE [facility]3] Comment on above: Performed By: #### U ARFX #### [facility] [address] [place] [address] Ketones Ql (U) Negative Normal NEGATIVE [facility]3] Comment on above: Performed By: #### U ARFX #### [facility] [address] [place] [address] Leukocyte esterase Test strip Ql (U) Negative Normal NEGATIVE [facility]3] Comment on above: Performed By: #### U ARFX #### [facility] [address] [place] [address] Nitrite Ql (U) Negative Normal NEGATIVE [facility]3] Comment on above: Performed By: #### U ARFX #### [facility] [address] [place] [address] pH (U) 6.0 [pH] Normal 5.0 - 8.0 [facility]3] Comment on above: Performed By: #### U ARFX #### [facility] [address] [place] [address] Protein Ql (U) Negative Normal NEGATIVE [facility]3] Comment on above: Performed By: #### U ARFX #### [facility] [address] [place] [address] Specific gravity (U) [Rel density] 1.011 Normal 1.005 - 1.035 [facility]3] Comment on above: Performed By: #### U ARFX #### [facility] [address] [place] [address] Urobilinogen (U) [Mass/Vol] mg/dL Normal 0.0 - 1.9 [facility]3] Comment on above: Performed By: #### U ARFX #### [facility] [address] [place] [address] Color (U) YELLOW See Below [facility]-P[facility]m Sleep-PFT [...] RBC (U) [#/Vol] Negative NEGATIVE [facility] [place] 6 Work Phone: Specific gravity (U) [Rel density] 1.011 1 See Below [facility] [place] 6 Work Phone: Comment on above: Reference Range: 1.0 05 - 1.035 URINALYSIS WITH CULTURE IF INDICATED Negative NEGATIVE [facility] 6 Work Phone: [phone] URINALYSIS WITH CULTURE IF INDICATED <2.0 0.0 - 1.9 [facility] [place] 6 Work Phone: [phone] URINALYSIS WITH CULTURE IF INDICATED CLEAR CLEAR [facility] Work Phone: Blood Pressure Cuff Sizeon 0 09-09-2021 Fall risk assessment a) No falls within the last year [facility] [address] [place] Work Phone: Tobacco use status CPHS b) No [facility] [address] [place] Work Phone: [phone] Blood Pressure Cuff Size Adult [facility] [address] [place] Work Phone: Electrocardiogram 12 Leadon 09-09-2021 Electrocardiogram 12 Lead Ventricular Rate 74 Atrial Rate 74 P-R Interval 122 QRS Duration 162 Q-T Interval 428 QTC Calculation(Bazett) 475 P Stowell 64 R Stowell 78 T Stowell -58 QRS Count 12 Q Onset 196 P Onset 135 P Offset 189 T Offset 410 QTC Fredericia 459 Diagnosis Class Borderline Abnormal Diagnosis Electronic ventricular pacemaker When compared with ECG of 06-OCT-2020 02:28, Vent. rate has increased BY 3 BPM Confirmed by Jayce Calderon ([id number]) on 09/09/2021 4:22:17 PM Normal [facility]3] No Panel Informationon 09-09 [email or web address] ?[id number]&Date =09-09-2021&Time=11%3a46% 3a49%3a00&TestType=ECG&Si te=1&OutputType=PDF&Ext=P DF [facility] [address] [place] Work Phone: [phone] Electronic ventricul ar pacemaker [facility] [address] [place] Work Phone: [phone] Borderline Abnormal [facility] [address] [place] Work Phone: [phone] 1 [facility] [address] [place] Work Phone: [phone] 1 [facility] [address] [place] Work Phone: [phone] 1 [facility] [address] [place] Work Phone: [phone] 1 [facility] [address] [place] Work Phone: [phone] 1 [facility] [address] [place] Work Phone: [phone] 1 [facility] [address] [place] Work Phone: [phone] 1 [facility] [address] [place] Work Phone: [phone] 1 [facility] [address] [place] Work Phone: [phone] 1 [facility] [address] [place] Work Phone: [phone] 1 [facility] [address] [place] Work Phone: [phone] 1 [facility] [address] [place] Work Phone: [phone] [facility] [address] [place] Work Phone: [phone] [facility] [address] [place] Work Phone: [phone] [facility] [address] [place] Work Phone: Office Visit (Cardiac Surger y)on 09-09-2021 Follow-up visit Diagnoses/Problems Assessed Mitral regurgitation (424.0) (I34.0) severe, echo 12/2019 Tricuspid regurgitation (397.0) (I07.1) severe, echo December 2019 Provider Impressions # severe functional mitral regurgitation # Non-ischemic cardiomyopathy, HFrEF, s/p 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 History of Present Illness Healthcare Administration Intern: Dr. Diaz Canchola Patient is a pleasant 70 year-old male with previous medical history significant for hypertension, non-ischemic cardiomyopathy, s/p STITCH BONDING MACHINE DRAWER IN-D, who was referred for evaluation of mitral [...] use Al (more content not included)... Normal [facility] Office Visit (Cardiology)on 09-09-2021 Follow-up visit Chief [...] not enough food. History of Present Illness Healthcare Administration Intern: Dr. Diaz Canchola Patient is a pleasant 70 year-old male with previous medical history significant for hypertension, non-ischemic cardiomyopathy, s/p STITCH BONDING MACHINE DRAWER IN-D, who was referred for evaluation of mitral and tricuspid regurgitation. Patient endorses progressively worsening dyspnea with minimal exertion (walking less than 1 block) and orthopnea. NYHA: Class 3 Frailty score: 0/5 EKG: pacing rhythm TTE: LVEF 20%, severe MR, severe TR, RVSP 54.5 mmHg LUCAS: LVEF 15-20%, severe MR with central jet, severe TR [facility] (): normal coronaries Dental assessment: no significant [...] of c (more content not included)... Normal [facility] Transesophageal Echoon 08-21 Transesophageal Echo [facility] enter, [address] [place] [address] and TRANSESOPHAGEAL ECHOCARDIOGRAM REPORT Patient Name: CORKY Emerson Physician: [id number] Rupali DUENAS Study Date: 08/21/2021 Referring RODRIGO FROST Physician: MRN/PID: [id number] PCP: Accession/Order#: [id number] Department [facility] Non Location: Invasive Date of : 1950 Fellow: [id number] Hardik Valerio MD Gender: M Nurse: Verónica Nguyen RN Admission Status: Outpatient Additional Staff: Kelly Santoro RN Height: 167.64 cm CC Report to: Weight: 67.13 kg Study Type: Transesophageal Echo BSA: 1.76 m2 Blood Pressure: 101 /73 mmHg Diagnosis/ICD: I05.9-Mitral valve disorder Indication: Mitral regurgitation Procedure/CPT: LUCAS Complete-51357; Color Doppler-37550; Doppler Full-46488 Patient History: Drug Allergies: None Pacer/Defib: Permanent pacemaker Pertinent History: CKD, hypothyroid, pulmonary HTN, JOSEPH, orthopnea, MR/TR/, NSVT, LBBB, STITCH BONDING MACHINE DRAWER IN-D, NICM, CHB, HTN. Study Detail: PHYSICIAN INTERPRETATION: [...] the prior exam , TTE from 07/18/2021 ([facility]) the LV systolic function was severely reduced [...] the prior exam , TTE from 07/18/2021 ([facility]) the LV systolic function was severely reduced ( reported LVEF 20-25%) and there was moderate to severe MR. The LV leaflets were better visualized today. In addition there was alreaedy severe TR. 7. There is global hypokinesis of the left ventricle with minor regional variations. QUANTITATIVE DATA SUMMARY: [id number] Rupali Allred MD Electronically signed on 08/21/2021 at 3:40:01 PM Final Normal [facility] COVID[place]19 [facility] [place] SARS-CoV-2 (COVID-19) RNA LACY+probe Ql (Unsp spec) Negative Normal Negative [facility] Comment on above: Order Comment: Healt hcare Worker?: N Result Comment: Testing for SARS-CoV-2 by RT-PCR This test was developed and its performance characteristics determined by [employer] (Pruffi) and validated at the [facility]. This test has not been [...] is terminated or revoked sooner. PERFORMED BY: [place] [address] PATHOLOGIST TRAY DELIVERY AIDE BAY THRASHER M.D. Performed By: #### C OVID 19 [facility] #### [address] COVID-19 Positive/NegativeOr dered By: Cristobal Garcia on 08-19-2021 SARS-CoV-2 (COVID-19) N gene LACY+probe Ql (Resp) Negative Negative [facility] Comment on above: Testing for SARS-CoV -2 by RT-PCR This test was developed and its performance characteristics determined by [employer] (BD) and validated at the [facility]. This test has not been [...] weight loss.; Status:Complete - Retrospective Authorization; Done: [id number] Eat a low fat and low cholesterol diet.; Status:Complete - Retrospective Authorization; Done: 13Aug2021 Losing just 5 to 10 pounds may [...] device check. By signing my name below, IAnia CMA,Scribe, attest that this documentation has been prepared under the direction and in the presence of Dr. Mera Batista MD, FACC, FACP, RS. No list or bottles for comparison, patient or family member to call with any updates [phone] Patient provided Falls Prevention education sheet. The [...] ms (paced) Device check. Today:. [facility] HF [...] office visit. Personally paired pt?s device with [employer] pulse nabeel; troubleshooting of nabeel performed and called [employer] support for 20 minutes troubleshooting Normal cors by catheterization. Ejection fraction 30% by myocardial perfusion scanning 2019. LVEF20% by echo 2020. [place] [employer] 3C heart failure. Chronic. Stable. [...] Increase beta-block (more content not included)... Normal [employer] Tobacco Screening.on 022 Fall risk assessment b) One or more fall s in the last year [facility]Elyri a [address] DO Work Phone: Tobacco use status CP b) No [facility]Ely[facility] a 320 DO Work Phone: Tobacco Screening. Yes [facility]-Elyri a 320 DO Work Phone: Transesophageal Echoon 08-02 Transesophageal Echo Please click on the link to view the study images Normal [facility]Elyri a 320 DO Work Phone: COVID-19 [facility] 07-[facility]-2021 SARS-CoV-2 (COVID-19) RNA LACY+probe Ql (Unsp spec) Negative Normal Negative [facility] Comment on above: Order Comment: Healt hcare Worker?: N Result Comment: Testing for SARS-CoV-2 by RT-PCR This test was developed and its performance characteristics determined by [employer] ([employer]ruffi) and validated at the [facility]. This test has not been [...] is terminated or revoked sooner. PERFORMED BY: [facility] [address] [place] [address] PATHOLOGIST TRAY DELIVERY AIDE BAY THRASHER M.D. Performed By: #### C OVID 19 [facility] ####[facility] [address] [place] [address] [facility] COVID-19 Positive/NegativeOr dered By: Cristobal Garcia on 07-31-2021 SARS-CoV-2 (COVID-19) N gene LACY+probe Ql (Resp) Negative Negative [facility] Comment on above: Testing for SARS-CoV -2 by RT-PCRThis test was developed and its performance characteristics determined by [employer] (Pruffi) and validated at the [facility]. This test has not been [...] and its performance characteristics determined by [employer] (Pruffi) and validated at the [facility]. This test has not been [...] Instructions We will review blood work from [place] and call you with any abnormal results. Continue current medications as ordered. Follow up with [facility] AND Dr. Batista as scheduled. Call [phone] to schedule follow up with Dr. Canchola [...] for RFP/BNP/Dig. 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)/ NICM/ valvular dx (severe [...] Oral Tablet (more content not included)... Normal [employer] Tobacco Screening.on Adult depression screening assessment No [facility] [address] [place] Work Phone: Fall risk assessment a) No falls within the last year [facility] [address] [place] Work Phone: Tobacco use [...] failure Brain Natriuretic Peptide BNP; Status:Active; Requested for:[id number]; Digoxin Level, Serum; Status:Active; Requested for:[id number]; Renal Function Panel; Status:Active; Requested for:[id number]; Patient Instructions To reach Dr. Canchola' office please call [phone] (Funmilayo). . Call [phone] to schedule an appointment. You may also contact the HF RNs at [email or web address] . 1) Increase entresto to 97/103 mg twice a day 2) Labs (RFP/BNP/dig level) 3) Follow up in 1 month at /[facility] with [facility] Pharmacy: [place], [place] Chief Complaint CORKY DUENAS is being seen for a 6 month follow-up of cardiomyopathy, heart failure and a routine medication evaluation. History of Present Illness Referring providers: Structural Heart Team Gen devulcanizer tender: Stephen ([facility]) EP: Lynne ([facility]) Mr. Duenas is a 70 y/o M with a PMHx sig for stage C/D systolic HF/NICM/HFrEF with severe LV dysfunction (LVEF 20-25%) s/p STITCH BONDING MACHINE DRAWER IN-D with associated functional mitral regurgitation, hypothyroidism, and [...] dizziness a few weeks. He went to [place]. Reports full adherence to low sodium diet at home STITCH BONDING MACHINE DRAWER IN-D was placed January [address] Mera Batista PMHx: stage C/D systolic HF/NICM/HFrEF with severe LV dysfunction (LVEF 20-25%) s/p STITCH BONDING MACHINE DRAWER IN-D with associated functional mitral regurgitation, hypothyroidism, CKD SocHx: Lives in [place], [place] with mother (in her 80s), he [...] cancer. Denies other family history of CAD, OR, CHF, OHS, MCS or OHT Mother: DM, [...] daily Fur (more content not included)... Normal [facility] Tobacco Screening.on Fall risk assessment a) No falls within the last year [facility] [address] [place] Work Phone: Tobacco use status CPHS b) No [facility] [address] [place] Work Phone: Office Visit (Cardiology)on 11-12-2020 Follow-up visit Diagnoses/Problems Assessed ACC/AHA stage D heart failure (428.9) (I50.84) Mitral regurgitation (424.0) (I34.0) Nonischemic cardiomyopathy (425.4) (I42.8) Patient Instructions To reach Dr. Canchola' office please call [phone] (Funmilayo). . Call [phone] to schedule an appointment. You may also contact the HF RNs at . 1) Increase carvedilol to 12.5 mg twice a day 2) Follow up in 6 months at /[facility] Pharmacy: [place] Chief Complaint CORKY DUENAS is being seen for follow-up of a hospitalization for cardiomyopathy, heart failure and a routine medication evaluation. History of Present Illness Referring providers: Structural Heart Team Gen devulcanizer tender: [facility] EP: Lynne ([facility]) Mr. Duenas is a 70 y/o M with a PMHx sig for stage D systolic HF/NICM/HFrEF with severe LV dysfunction (LVEF 20-25%) s/p STITCH BONDING MACHINE DRAWER IN-D with associated functional mitral regurgitation, hypothyroidism, and [...] most days, weights have been around 136lbs. STITCH BONDING MACHINE DRAWER IN-D was placed January [address] Mera Batista PMHx: stage D systolic HF/NICM/HFrEF with severe LV dysfunction (LVEF 20-25%) s/p STITCH BONDING MACHINE DRAWER IN-D with associated functional mitral regurgitation, hypothyroidism, CKD SocHx: Lives in [place], [place] with mother (in her 80s), he is but remains in contact with his ex- and ex-brother in law. Two brothers also live with him and his mom. No pets. 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 Denies other family history of CAD, OR, CHF, OHS, MCS or OHT Mother: DM, [...] negative for (more content not included)... Normal [facility] - Hematology and Cell countson 10-08-2020 Erythrocyte distribution width (RBC) [Ratio] 14.0 % See Below [facility] -González Adams Work Phone: Comment on above: Reference Range: 11. 5 - 14.5 Hematocrit (Bld) [Volume fraction] 47.7 % See Below [facility] [place] Work Phone: Comment on above: Reference Range: 41. 0 - 52.0 Hemoglobin (Bld) [Mass/Vol] 16.1 g/dL See Below [facility] Alex [place] Work Phone: Comment on above: Reference Range: 13. 5 - 17.5 MCHC (RBC) [Mass/Vol] 33.8 g/dL See Below [facility] -González [place] Work Phone: Comment on above: Reference Range: 32. 0 - 36.0 MCV (RBC) [Entitic vol] 96 fL 80 - 100 [facility] Alex [place] Work Phone: Platelets (Bld) [#/Vol] 226 10*3/uL 150 - 450 [facility] Alex [place] Work Phone: RBC (Bld) [#/Vol] 4.96 {x10E12/L} See Below [facility] Alex [place] Work Phone: Comment on above: Reference Range: 4.5 0 - 5.90 WBC (Bld) [#/Vol] 7.6 10*3/uL 4.4 - 11.3 [facility] icine Alex [place] Work Phone: Magnesium, Serumon Magnesium [Mass/Vol] 2.17 mg/dL See Below MG-M edicine -González [place] Work Phone: Comment on above: Reference Range: 1.6 0 - 2.40 No Panel Informationon 10-08 0.0 {/100_WBC} 0.0-0.0 MG-Medicin e -González [place] Work Phone: Renal Function Panelon 10-08 Albumin BCP dye [Mass/Vol] 3.6 g/dL 3.4 - 5.0 [facility] -[facility] Work Phone: Anion gap [Moles/Vol] 14 mmol/L 10 - 20 MG- [facility] Alex [place] Work Phone: Calcium [Mass/Vol] 9.0 mg/dL [...] [Moles/Vol] 139 mmol/L 136 - 145 [facility] jim Adams Work Phone: Urea nitrogen [Mass/Vol] 30 mg/dL above high threshold 6 - 23 MG-Bhavesh [facility] Work Phone: Renal Function Panel 71 {mL/min/1.73m2} >60 MG-Bhavesh [facility] Work Phone: Comment on above: CALCULATIONS OF AYANA MATED GFR ARE PERFORMED USING THE MDRD STUDY EQUATION FOR THE IDMS-TRACEABLE CREATININE METHODS. CLIN CHEM 2007;53:766-72 Renal Function Panel 59 {mL/min/1.73m2} Abnormal >60 MG-Bhavesh [facility] Work Phone: Magnesium, Serumon Magnesium [Mass/Vol] 2.33 mg/dL See Below MG-M gabi Adams Work Phone: Comment on above: Reference Range: 1.6 0 - 2.40 Renal Function Panelon 10-07 Albumin BCP dye [Mass/Vol] 3.6 g/dL 3.4 - 5.0 MG-Bhavesh [place] Work Phone: Anion gap [Moles/Vol] 19 mmol/L 10 - 20 MG Bhavesh Adams Work Phone: Calcium [Mass/Vol] 8.6 mg/dL 8.6 - 10.6 MGRentJiffyRaman Adams Work Phone: Chloride [Moles/Vol] 105 mmol/L 98 - 107 MG- gabi Adams Work Phone: CO2 [Moles/Vol] 16 mmol/L below low threshold 21 - 32 MGJayla Adams Work Phone: Creatinine [Mass/Vol] 1.37 mg/dL above high threshold See Below Pedro Adams Work Phone: Comment on above: Reference Range: 0.5 0 - 1.30 Glucose [Mass/Vol] 95 mg/dL 74 - 99 [facility] jim Adams Work Phone: Phosphate [Mass/Vol] 3.8 mg/dL 2.5 - 4.9 MG-M gabi Adams [...] Sodium [Moles/Vol] 136 mmol/L 136 - 145 MG-Med leylane Alex Adams Work Phone: Urea nitrogen [Mass/Vol] 31 [...] [Mass/Vol] 9.1 mg/dL 8.6 - 10.6 [facility] jim Adams Work Phone: Chloride [Moles/Vol] 104 mmol/L 98 - 107 MG-M gabi Adams Work Phone: CO2 [Moles/Vol] 25 mmol/L 21 - 32 [facility]-Medici ne Alex Adams Work Phone: Creatinine [Mass/Vol] 1.26 mg/dL See Below MG- Medicine Alex Adams Work Phone: Comment on above: Reference Range: 0.5 0 - 1.30 Glucose [Mass/Vol] 139 mg/dL above high threshold 74 - 99 MG-Bhavesh [facility] Work Phone: Phosphate [Mass/Vol] 3.4 mg/dL 2.5 - 4.9 MG-M gabi Adams Work Phone: Comment on above: The performance wilma acteristics of phosphorus testing in heparinized plasma have been validated by the individual laboratory site where testing is performed. Testing on heparinized plasma is not approved by the FDA; however, such approval is not necessary. Potassium [Moles/Vol] 3.8 mmol/L 3.5 - 5.3 MG- Bhavesh [place] Work Phone: Sodium [Moles/Vol] 138 mmol/L [...] Renal Function Panel 57 {mL/min/1.73m2} Abnormal >60 MG-Bhavesh [facility] Work Phone: Complete Blood Count + Diffe suzieon 10-06-2020 Basophils/100 WBC (Bld) 0.5 % 0.0 - 2.0 Pedro Adams Work Phone: Erythrocyte distribution width (RBC) [Ratio] 14.6 % above high threshold See Below -Bhavesh Adams Work Phone: Comment on above: Reference Range: 11. 5 - 14.5 Hematocrit (Bld) [Volume fraction] 49.6 % See Below MG-Bhavesh [facility] Work Phone: Comment on above: Reference Range: 41. 0 - 52.0 Hemoglobin (Bld) [Mass/Vol] 16.9 g/dL See Below MG-Bhavesh Adams Work Phone: Comment on above: Reference Range: 13. 5 - 17.5 Lymphocytes/100 WBC (Bld) 12.1 % See Below -Bhavesh Adams Work Phone: Comment on above: Reference Range: 13. 0 - 44.0 MCHC (RBC) [Mass/Vol] 34.1 g/dL See Below MG- Medicine Alex Adams Work Phone: Comment on above: Reference Range: 32. 0 - 36.0 MCV (RBC) [Entitic vol] 99 fL 80 - 100 MG-Bhavesh [facility] Work Phone: Monocytes/100 WBC (Bld) 6.7 % 2.0 - 10.0 [facility] Alex Adams Work Phone: [phone] Neutrophils/100 WBC (Bld) 77.8 % See Below [facility] Alex Adams Work Phone: Comment on above: Reference Range: 40. 0 - 80.0 Platelets (Bld) [#/Vol] 240 10*3/uL 150 - 450 MG-Bhavesh Adams Work Phone: RBC (Bld) [#/Vol] 5.03 {x10E12/L} See Below [facility] Alex Adams Work Phone: Comment on above: Reference Range: 4.5 0 - 5.90 WBC (Bld) [#/Vol] 11.1 10*3/uL 4.4 - 11.3 MG-Me dicine -González Adams Work Phone: Complete Blood Count + Differential 0.05 {x10E9/L} See Below [facility] Alex Adams Work Phone: Comment on above: Reference Range: 0.0 0 - 0.10 Complete Blood Count + Differential 0.26 {x10E9/L} See Below [facility] Alex Adams Work Phone: Comment on above: Reference Range: 0.0 0 - 0.70 Complete Blood Count + Differential 0.74 {x10E9/L} See Below [facility] Alex [facility] Work Phone: Comment on above: Reference Range: 0.1 0 - 1.00 Complete Blood Count + Differential 1.34 {x10E9/L} See Below [facility] -[facility]onzá[facility] [place] Work Phone: Comment on above: Reference Range: 1.2 0 - 4.80 Complete Blood Count + Differential 8.62 {x10E9/L} above high threshold See Below [facility] Work Phone: Comment on above: Reference Range: 1.2 0 - 7.70 Complete Blood Count + Differential 2.3 % 0.0 - 6.0 [facility] Work Phone: Complete Blood Count + Differential 0.6 % 0.0 - 0.9 [facility] Work Phone: Comment on above: Immature Granulocyte Count (IG) includes promyelocytes, myelocytes and metamyelocytes but does not include bands. Percent differential counts (%) should be interpreted in the context of the absolute cell counts (cells/L). Complete Blood Count + Differential 0.0 {/100_WBC} 0.0-0.0 [facility] Work Phone: Digoxin Level, Serumon 10-06 Digoxin [Mass/Vol] 0.96 ng/mL See Below [facility]STERMed iciSSM Health Carelas Adams Work Phone: Comment on above: Reference Range: 0.8 0 - 2.00 Laboratory - Chemistry and C hemistry - challengeon 10-06-2020 Albumin BCP dye [Mass/Vol] 3.7 g/dL 3.4 - 5.0 [facility] Work Phone: ALP [Catalytic activity/Vol] 66 U/L 33 - 136 [facility] Work Phone: ALT With P-5'-P [Catalytic activity/Vol] 12 U/L 10 - 52 [facility] Work Phone: Comment on above: Patients treated wit h Sulfasalazine may generate falsely decreased results for ALT. Anion gap [Moles/Vol] 17 mmol/L 10 - 20 [facility] Work Phone: AST With P-5'-P [Catalytic activity/Vol] 23 U/L 9 - 39 [facility] Alex Adams Work Phone: Comment on above: MILD HEMOLYSIS DETEC MARIANGEL. The result may be falsely elevated due tohemolysis or other interferents. Clinical correlation is recommended.Repeat testing may be considered. Bilirubin [Mass/Vol] 0.8 mg/dL 0.0 - 1.2 MG-M gabi Johnson Adams Work Phone: Calcium [Mass/Vol] 9.0 mg/dL 8.6 - 10.6 [facility]-Med leylane Alex Adams Work Phone: Chloride [Moles/Vol] 101 mmol/L 98 - 107 MG-M edjim Johnson Adams Work Phone: CO2 [Moles/Vol] 25 mmol/L 21 - 32 [facility]-Medici ri Alex Adams Work Phone: Creatinine [Mass/Vol] 1.59 mg/dL above high threshold See Below RentJiffyBhavesh Johnson Adams Work Phone: Comment on above: Reference Range: 0.5 0 - 1.30 Glucose [Mass/Vol] 94 mg/dL 74 - 99 [facility] jim Johnson [place] Work Phone: Potassium [Moles/Vol] 4.2 mmol/L 3.5 - 5.3 MG- Bhavesh Johnson Adams Work Phone: Comment on above: MILD HEMOLYSIS DETEC MARIANGEL. The result may be falsely elevated due tohemolysis or other interferents. Clinical correlation is recommended.Repeat testing may be considered. Protein [Mass/Vol] 6.5 g/dL 6.4 - 8.2 [facility] jim Johnson [place] Work Phone: Sodium [Moles/Vol] 139 mmol/L 136 - 145 [facility] jim Johnson [place] Work Phone: TSH Qn 31.13 m[IU]/L above high threshold See Below RentJiffyBhavesh Johnson [place] Work Phone: Comment on above: Reference Range: 0.4 4 - 3.98 TSH testing is performed using different testing methodology at [facility] than at other system [facility]. Direct result comparisons should only be made within the same method. Urea nitrogen [Mass/Vol] 41 mg/dL above high threshold 6 - 23 [facility] Work Phone: Magnesium, Serumon Magnesium [Mass/Vol] 2.74 mg/dL above high threshold See Below [facility] Work Phone: Comment on above: Reference Range: 1.6 0 - 2.40 No Panel Informationon 10-06 53 {mL/min/1.73m2} Abnormal >60 [facility] Work Phone: Comment on above: CALCULATIONS OF AYANA MATED GFR ARE PERFORMED USING THE MDRD STUDY EQUATION FOR THE IDMS-TRACEABLE CREATININE METHODS. CLIN CHEM 2007;53:766-72 44 {mL/min/1.73m2} Abnormal >60 [facility] Work Phone: Radiologyon 10-06-2020 XR Ribs - bilateral 4 Views Normal [facility] Work Phone: T4 - Free Thyroxine, Serumon 10-06-2020 Free T4 [Mass/Vol] 1.09 ng/dL See Below [facility] Work Phone: Comment on above: Reference Range: 0.7 8 - 1.48 Thyroxine Free testing is performed using different testing methodology at [facility] than at other [facility]. Direct result comparisons should only be made within the same method. Troponin I, Serumon 10-07-19 21 Troponin I.cardiac [Mass/Vol] 0.02 ng/mL See Below [facility] Work Phone: Comment on above: Reference [...] is performed using different testing methodology at [facility] than at other [facility]. Direct result comparisons should only [...] Electrocardiogram- 12 Lead See Scanned Document [facility] [place] [address] [place] Work Phone: Office [...] medication changes. 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)/ NICM/ valvular dx (severe [...] Vital Signs Recorded: 28Sep2020 01:54PM Heart Rate80 [id number] (more content not included)... Normal [facility] PROGRESSon 09-01-2018 Protein mass conc HNO ID: [id number] Author: Deepa Daily Service: ? Author Type: Drawer Hardware Worker Type: Progress Notes Filed: 09/01/2018 10:13 AM Note Text: POPULATION HEALTH TEST DESK OPERATOR QUICKNOTE Provider Action/FYI: I spoke with Corky and he states he's no longer living in [place]. Removed pcp. Patient identified by name and . LARISA Leonard [facility] CNPTOUTREACHon 08-24-2018 CNPTOUTREA Patient Outreach (IN TMWS) ----- CORKY DUENAS ([id number]) 1950 M Date Time Provider Department 08/24/18 DEEPA DAILY ([facility]) INTMWS During your visit today, we recorded [...] needed: Physical next available with pcp or terry cloth cutter hand ? Consultation Appointments: n/a Labs, HM and Immunization: Health Maintenance Due: BP CONTROLLED (<130/80) due on 1970 ANNUAL PCP TEAM CHRONIC DISEASE VISIT due on 12/03/2016 PROSTATE CANCER SCREENING DISCUSSION due on 10/01/2017 ADULT PREVNAR-13 due on 2017 PNEUMOVAX AGE 65 AND OVER WITH 5YR LOOKBACK(1) due on 2017 LARISA Leonard CMA 09/01/2018 10:13 AM Signed POPULATION HEALTH TEST DESK OPERATOR QUICKNOTE Provider Action/FYI: I spoke with Corky and he states he's no longer living in [place]. Removed pcp. Patient identified by name and . Deepa Daily CMA Allergies As of Date: 08/24/2018 (No Known Allergies) Date Reviewed: 12/05/2015 Reviewed by: Jacqueline Felix Ma - Fully Assessed Reason for Visit: PHMA/Care Gap Outreach [[id number]] Prescriptions as of 08/24/2018 Sig: AMLODIPINE 10 [...] heart disease [Z82.4*INVALID FOR* Encounter Status:Closed by EDEPA DAILY CMA on 09/01/18 Normal [facility] [place] PROGRESSon 08-24-2018 Protein mass conc HNO ID: [id number] Author: Deepa Daily Service: ? Author Type: Drawer Hardware Worker Type: Progress Notes Filed: 09/01/2018 10:13 AM [...] needed: Physical next available with pcp or terry cloth cutter hand ? Consultation Appointments: n/a Labs, HM and Immunization: Health Maintenance Due: BP CONTROLLED (<130/80) due on 1970 ANNUAL PCP TEAM CHRONIC DISEASE VISIT due on 12/03/2016 PROSTATE CANCER SCREENING DISCUSSION due on 10/01/2017 ADULT PREVNAR-13 due on 2017 PNEUMOVAX AGE 65 AND OVER WITH 5YR LOOKBACK(1) due on 2017 Deepa Daily CMA [facility] PROGRESSon 07-26-2018 Protein mass conc HNO ID: [id number] Author: Deepa Daily Service: ? Author Type: Drawer Hardware Worker Type: Progress Notes Filed: 07/26/2018 9:16 AM Note Text: POPULATION [facility] TEST DESK OPERATOR QUICKNOTE Provider Action/FYI: Letter mailed to patient. Patient identified by name and . 3rd attempt - vm box not set up. Mailing letter to patient. Deepa Daily CMA [facility] PROGRESSon 07-23-2018 Protein mass conc HNO ID: [id number] Author: Deepa Daily Service: ? Author Type: Drawer Hardware Worker Type: Progress Notes Filed: 07/26/2018 9:16 AM Note Text: POPULATION [facility] TEST DESK OPERATOR QUICKNOTE Provider Action/FYI: Patient identified by name and . 2nd attempt - mailbox full - unable to leave message on machine. [facility] Protein mass conc HNO ID: [id number] Author: Deepa Daily Service: ? Author Type: Drawer Hardware Worker Type: Progress Notes Filed: 07/26/2018 9:16 AM Note Text: POPULATION [facility] TEST DESK OPERATOR QUICKNOTE Provider Action/FYI: Patient identified by name and . 1st attempt - mailbox full - unable to lmom. Deepa Daily CMA [facility] CNPTOUTREACHon 07-19-2018 CNPTOUTREACH Patient Outreach (IN TMWS) ----- CORKY DUENAS ([id number]) 1950 Date Time Provider Department 07/19/18 DEEPA DAILY) INTMWS During your visit today, [...] office visit:Physical next available with pcp or terry cloth cutter hand LARISA Leonard CMA 07/26/2018 9:16 AM Signed [facility] ASSISTANT [place] Provider Action/FYI: Patient identified by name and . 1st attempt - mailbox full - unable to lmom. LARISA Leonard CMA 07/26/2018 9:16 AM Signed [facility] ASSISTANT [place] Provider Action/FYI: Patient identified by name and . 2nd attempt - mailbox full - unable to leave message on machine. LARISA Leonard CMA 07/26/2018 9:16 AM Signed [facility] ASSISTANT [place] Provider Action/FYI: Letter mailed to patient. Patient identified by name and . 3rd attempt - vm box not set up. Mailing letter to patient. Deepa Daily CMA Allergies As of Date: 07/19/2018 (No Known Allergies) Date Reviewed: 12/05/2015 Reviewed by: Jacqueline Pfahler Ma - Fully Assessed Reason for Visit: [...] Status:Closed by DEEPA DAILY CMA on 07/26/18 [facility] PROGRESSon 07-19-2018 Protein mass conc HNO ID: [id number] Author: Deepa Daily Service: ? Author Type: Drawer Hardware Worker Type: Progress Notes Filed: 07/26/2018 9:16 AM Note Text: [facility] CARE GAP REGISTRY DOCUMENTATION (OUTSIDE TEAMLET) Provider [...] office visit:Physical next available with pcp or terry cloth cutter hand Deepa Daily CMA Normal [facility] PROGRESSon 03-16-2018 Protein mass conc HNO ID: [id number] Author: Deepa Daily Cma Service: (none) Author Type: (none) Type: Progress Notes Filed: 03/16/2018 10:03 AM Note Text: Letters mailed to patient. [facility] Protein mass conc HNO ID: [id number] Author: Deepa Daily Cma Service: (none) Author Type: (none) Type: Progress Notes Filed: 03/16/2018 10:03 AM Note Text: Mailbox full - unable to lmom 3rd attempt - mailing letter. [facility] PROGRESSon 03-10-2018 Protein mass conc HNO ID: [id number] Author: Deepa Daily Cma Service: (none) Author Type: (none) Type: Progress Notes Filed: 03/16/2018 10:03 AM Note Text: Mailbox full - unable to leave a message. I will try once more and send a letter if unsuccessful. [facility] Protein mass conc HNO ID: [id number] Author: Deepa Daily Cma Service: (none) Author Type: (none) Type: Progress Notes Filed: 03/16/2018 10:03 AM Note Text: Mailbox full - unable to leave a message. I will try back later. Normal [facility] Protein mass conc HNO ID: [id number] Author: Deepa Daily Concreting Supervisor Service: (none) Author Type: (none) Type: Progress [...] needed: Physical next available with PCP or terry cloth cutter hand ? Consultation Appointments: n/a Labs, HM and Immunization: Health Maintenance Due: ANNUAL PCP TEAM CHRONIC DISEASE VISIT due on 1970 BP CONTROLLED (<130/80) due on 1970 ADULT PREVNAR-13 due on 2017 PNEUMOVAX AGE 65 AND OVER WITH 5YR LOOKBACK(1) due on 2017 INFLUENZA(1) due on 12/05/2017 Deepa Daily Concreting Supervisor Normal [facility] CNPTOUTREACHon 03-09-2018 [facility] Patient Outreach (IN TMWS) ----- CORKY DUENAS ([id number]) 1950 M Date Time Provider Department 03/09/18 DEEPA DAILY ([facility]) INTMWS During your visit today, we recorded the following information about you: Deepa Daily [facility] 03/16/2018 10:03 AM Signed PHMA TEAMLET [...] needed: Physical next available with PCP or terry cloth cutter hand ? Consultation Appointments: n/a Labs, HM and Immunization: Health Maintenance Due: ANNUAL PCP TEAM CHRONIC DISEASE VISIT due on 1970 BP CONTROLLED (<130/80) due on 1970 ADULT PREVNAR-13 due on 2017 PNEUMOVAX AGE 65 AND OVER WITH 5YR LOOKBACK(1) due on 2017 INFLUENZA(1) due on 12/05/2017 [facility] 03/16/2018 10:03 AM Signed Mailbox full - unable to leave a message. I will try back later. [facility] 03/16/2018 10:03 AM Signed Mailbox full - unable to leave a message. I will try once more and send a letter if unsuccessful. [facility] 03/16/2018 10:03 AM Signed Mailbox full - unable to lmom 3rd attempt - mailing letter. [facility] 03/16/2018 10:03 AM Signed Letters mailed to patient. Allergies As of Date: 03/09/2018 (No Known Allergies) Date Reviewed: 12/05/2015 Reviewed by: Jacqueline Felix Ma - Fully Assessed Reason for Visit: PHMA/Care Gap Outreach [[id number]] Prescriptions as of 03/09/2018 Sig: AMLODIPINE 10 [...] disease [Z82.4*INVALID FOR* Letter Text Internal Medicine [place] [address] [facility] [address] Dept: [phone] Dept [facility], Population Health M.A. March 16, 2018 Corky Duenas [address] [place] [address] Dear Layne Marcio In an effort to serve your healthcare needs, it has come to the attention of Lorena Crooks MD, your Primary Care Provider, that you are overdue for routine health care. We've attempted to contact you and have been unsuccessful. Please call the office at [phone] to schedule an appointment for Physical. In [...] have that office fax the results to [phone] Attn: Lorena Crooks MD or bring the records with you to your appointment. We will gladly update your record. If you have any questions, please feel free to call the office at [phone] or message us via [place]. Thank you for choosing the [facility]. Sincerely, Deepa Daily Cma Population Health M.Altagracia (electronically signed to expedite mailing) Letter Text Lorena Crooks MD Department of Internal Medicine [address] [place], [place] [id number] Corky Chua Marcio [id number] [place] [address] 03/16/2018 Dear Davidemile: Our records indicate that Lorena Crooks MD [...] our records. The main telephone number is [phone]. Best Regards, The office staff of Lorena Crooks MD Encounter Status:Closed by DEEPA DAILY CMA on 03/16/18 Normal [facility] Vital Signs Date Time Vital Sign Value Performing Clinician Facility 02-24-2022 14:43-0500 Diastolic blood pressure 59 mm[Hg] II Juan Manuel Albarran Work Phone: [facility] 02-24-2022 14:43-0500 Heart rate 68 /min CRISTOBAL Albarran Work Phone: [facility] 02-24-2022 14:43-0500 Respiratory rate 16 /min II Juan Manuel Albarran Work Phone: [facility] 02-24-2022 14:43-0500 SaO2% (BldA) [Mass fraction] 96 % II Juan Manuel Albarran Work Phone: [facility] 02-24-2022 14:43-0500 Systolic blood pressure 99 mm[Hg] II Juan Manuel Albarran Work Phone: [facility] 02-24-2022 14:13-0500 Inhaled oxygen flow rate 6 L/min II Juan Manuel Albarran Work Phone: [facility] 02-24-2022 12:24-0500 Body height 167.64 cm II Juan Manuel Albarran Work Phone: [facility] 02-24-2022 12:24-0500 Body mass index (BMI) [Ratio] 22.5 kg/m2 II Juan Manuel Albarran Work Phone: [facility] 02-24-2022 12:24-0500 Body weight 63.3 kg II Juan Manuel Albarran Work Phone: [facility] 02-24-2022 10:32-0500 Body temperature 97.8 [degF] II Juan Manuel Albarran Work Phone: [facility] 01-15-2022 20:43-0400 Diastolic blood pressure 76 mm[Hg] II Juan Manuel Albarran Work Phone: [facility] 01-15-2022 20:43-0400 Heart rate 67 /min II Juan Manuel Albarran Work Phone: [facility] 01-15-2022 20:43-0400 Respiratory rate 20 /min II Juan Manuel Albarran Work Phone: [facility] 01-15-2022 20:43-0400 SaO2% (BldA) [Mass fraction] 97 % II Juan Manuel Albarran Work Phone: [facility] 01-15-2022 20:43-0400 Systolic blood pressure 145 mm[Hg] II Juan Manuel Albarran Work Phone: [facility] 01-15-2022 16:42-0400 Body height 167.64 cm II Juan Manuel Albarran Work Phone: [facility] 01-15-2022 16:42-0400 Body temperature 98.2 [degF] II Juan Manuel Albarran Work Phone: [facility] 01-15-2022 16:42-0400 Body weight 62 kg II Juan Manuel Albarran Work Phone: [facility] 10-31-2021 10:49-0400 Body temperature 37.0 {degrees_C} Cristobal Garcia MD Work Phone: TG-Uznpaaosps-UXZ [facility] [address] [place] Work Phone: Comment on above: NOTE: PATIENT RESULTS ARE NOT CORRECTED FOR TEMPERATURE. 10-31-2021 10:49-0400 SaO2% (BldA) [Mass fraction] 99 % Cristobal Garcia MD Work Phone: NT-Jaiaibjcyn-WAQ [facility] [address] [place] Work Phone: 09-09-2021 11:51-0400 Body height 167.64 cm Cristobal Garcia MD Work Phone: GI-Nuevimgeil-LOE [facility] [address] [place] Work Phone: 09-09-2021 11:51-0400 Body mass index (BMI) [Ratio] 23.27 kg/m2 Cristobal Garcia MD Work Phone: VF-Qocpconwgf-KNW [facility] [address] [place] Work Phone: 09-09-2021 11:51-0400 Body surface area Derived from formula 1.74 m2 Cristobal Garcia MD Work Phone: YV-Prxbiqduuw-JVT [facility] [address] [place] Work Phone: 09-09-2021 11:51-0400 Body weight 65.4 kg Cristobal Garcia MD Work Phone: VH-Bvzpozhwaa-FLR [facility] [address] [place] Work Phone: 09-09-2021 11:51-0400 Diastolic blood pressure 74 mm[Hg] Cristobal Garcia MD Work Phone: KC-Fawfhgguqx-RYB [facility] [address] [place] Work Phone: 09-09-2021 11:51-0400 Heart rate 74 /min Cristobal Garcia MD Work Phone: PI-Gjcrhtbiht-DCS [facility] [address] [place] Work Phone: 09-09-2021 11:51-0400 SaO2% (BldA) [Mass fraction] 100 % Cristobal Garcia MD Work Phone: FQ-Gdxyxsywkr-VIW [facility] [address] [place] Work Phone: 09-09-2021 11:51-0400 Systolic blood pressure 109 mm[Hg] Cristobal Garcia MD Work Phone: GY-Bbadlrvgco-LCA [facility] [address] [place] Work Phone: 09-09-2021 11:51-0400 0 1 Cristobal Garcia MD Work Phone: CI-Sesquothur-QFA [facility] [address] [place] Work Phone: Comment on above: [employer] 08-13-2021 12:48-0400 Body height 167.64 cm Mera Batista MD Work Phone: [facility] [address] DO Work Phone: 08-13-2021 12:48-0400 Body mass index (BMI) [Ratio] 24.53 kg/m2 Mera Batista MD Work Phone: [facility] [address] DO Work Phone: 08-13-2021 12:48-0400 Body surface area Derived from formula 1.78 m2 Mera Batista MD Work Phone: [facility] [address] DO Work Phone: 08-13-2021 12:48-0400 Body weight 68.95 kg Mera Batista MD Work Phone: [facility] [address] DO Work Phone: 08-13-2021 12:48-0400 Diastolic blood pressure 58 mm[Hg] Mera Batista MD Work Phone: [facility] DO Work Phone: 08-13-2021 12:48-0400 Heart rate 104 /min Mera Batista MD Work Phone: [facility] DO Work Phone: 08-13-2021 12:48-0400 Systolic blood pressure 102 mm[Hg] Mera Batista MD Work Phone: [facility] DO Work Phone: 07-18-2021 14:00-0400 20 1 [id number] HHVI ULTRASOUND 01 Work Phone: [facility] Work Phone: Comment on above: [id number] 06-21-2021 09:53-0400 Body height 167.64 cm Kelly Blume SUPPORT SERVICES REP-CARBON ELECTRODES SUPERVISOR Work Phone: TN-Nchxzbydqf-LBX [facility] [address] [place] Work Phone: 06-21-2021 09:53-0400 Body mass index (BMI) [Ratio] 23.89 kg/m2 Kelly Blume SUPPORT SERVICES REP-CARBON ELECTROD[employer] SUPERVISOR Work Phone: QU-Mmpuzwykdx-DRG [facility] [address] [place] Work Phone: 06-21-2021 09:53-0400 Body surface area Derived from formula 1.76 m2 Kelly Blume SUPPORT SERVICES REP-CARBON ELECTROD[employer] SUPERVISOR Work Phone: WO-Yccxychsrm-FWW [facility] [address] [place] Work Phone: 06-21-2021 09:53-0400 Body weight 67.13 kg Kelly Blume SUPPORT SERVICES REP-CARB[employer] ELECT[employer] SUPERVISOR Work Phone: PK-Qgezrhcngf-ASR [facility] [address] [place] Work Phone: 06-21-2021 09:53-0400 Diastolic blood pressure 82 mm[Hg] Kelly Blume SUPPORT SERVICES REP-CARB[employer] ELECTROD[employer] SUPERVISOR Work Phone: KS-Emwdyruvug-BZQ [facility] [address] [place] Work Phone: 06-21-2021 09:53-0400 Heart rate 94 /min Kelly Blume SUPPORT SERVICES REP-CARB[employer] ELECTROD[employer] SUPERVISOR Work Phone: MH-Wmjmhpigby-IFB [facility] [address] [place] Work Phone: 06-21-2021 09:53-0400 SaO2% (BldA) [Mass fraction] 98 % Kelly Blume SUPPORT SERVICES REP-CARB[employer] ELECTROD[employer] SUPERVISOR Work Phone: UW-Upvyzvicgs-CGL [facility] [address] [place] Work Phone: 06-21-2021 09:53-0400 Systolic blood pressure 114 mm[Hg] Kelly Blume SUPPORT SERVICES REP-CARBON ELECTROD[employer] SUPERVISOR Work Phone: GD-Ebowynfbmu-PVR [facility] [address] [place] Work Phone: 05-20-2021 13:38-0500 Body height 167.64 cm Diaz Canchola DO Work Phone: ZZ-Xubqumudpn-BTQ [facility] [address] [place] Work Phone: 05-20-2021 13:38-0500 Body mass index (BMI) [Ratio] 23.4 kg/m2 Diaz Canchola DO Work Phone: LC-Fdatjpxqyh-RAL [facility] [address] [place] Work Phone: 05-20-2021 13:38-0500 Body surface area Derived from formula 1.74 m2 Diaz Canchola DO Work Phone: TN-Aymfttnohy-IZQ [facility] [address] [place] Work Phone: 05-20-2021 13:38-0500 Body weight 65.77 kg Diaz Canchola DO Work Phone: JR-Wmdjmnwtcy-KLX [facility] [address] [place] Work Phone: 05-20-2021 13:38-0500 Diastolic blood pressure 78 mm[Hg] Diaz Canchola DO Work Phone: JQ-Ilpazggwen-JNT [facility] [address] [place] Work Phone: 05-20-2021 13:38-0500 Heart rate 96 /min Diaz Canchola DO Work Phone: BO-Fytpqvjgiy-DSE [facility] [address] [place] Work Phone: 05-20-2021 13:38-0500 SaO2% (BldA) [Mass fraction] 99 % Diaz Canchola DO Work Phone: BK-Wudpzspjnf-FGH [facility] [address] [place] Work Phone: 05-20-2021 13:38-0500 Systolic blood pressure 130 mm[Hg] Diaz Canchola DO Work Phone: VS-Itreblpyeu-HZE [facility] [address] [place] Work Phone: 09-28-2020 13:54-0400 Body height 167.64 cm Kelly Blume SUPPORT SERVICES REP-CARB[employer] ELECT[employer] SUPERVISOR Work Phone: ZB-Sylsbkotwn-KJN [facility] [address] [place] Work Phone: 09-28-2020 13:54-0400 Body mass index (BMI) [Ratio] 22.92 kg/m2 Kelly Blume SUPPORT SERVICES REP-[employer] ELECTROD[employer] SUPERVISOR Work Phone: UK-Lbxsnoftzt-DDW [facility] [address] [place] Work Phone: 09-28-2020 13:54-0400 Body surface area Derived from formula 1.73 m2 Kelly Blume SUPPORT SERVICES REP-CARB[employer] ELECT[employer] SUPERVISOR Work Phone: IC-Damnltipbn-HAO [facility] [address] [place] Work Phone: 09-28-2020 13:54-0400 Body weight 64.41 kg Kelly Blume SUPPORT SERVICES REP-[employer] ELECT[employer] SUPERVISOR Work Phone: GM-Zfjmjtrxtq-ZNO [facility] [address] [place] Work Phone: 09-28-2020 13:54-0400 Diastolic blood pressure 88 mm[Hg] Kelly Blume SUPPORT SERVICES REP-[employer] ELECT[employer] SUPERVISOR Work Phone: UT-Gnsbedwrfe-SCA [facility] [address] [place] Work Phone: 09-28-2020 13:54-0400 Heart rate 80 /min Kelly Blume SUPPORT SERVICES REP-CARBON ELECTROD[employer] SUPERVISOR Work Phone: FS-Onhaekugmz-ZUF [facility] [address] [place] Work Phone: 09-28-2020 13:54-0400 SaO2% (BldA) [Mass fraction] 98 % Kelly Blume SUPPORT SERVICES REP-CARB[employer] ELECTR[employer] SUPERVISOR Work Phone: US-Ttnregqlws-RPA [facility] [address] [place] Work Phone: 09-28-2020 13:54-0400 Systolic blood pressure 140 mm[Hg] Kelly Blume SUPPORT SERVICES REP-CAR[employer] ELECT[employer] SUPERVISOR Work Phone: NF-Gjssfdqklb-WCG [facility] [address] [place] Work Phone: Encounters Encounter Date Encounter Type Care Provider Facility Start: 04-27-2023 End: 04-27-2023 ambulatory DAYTON RUIZ Not Available Start: 04-16-2023 End: 04-16-2023 ambulatory JUAN MANUEL ALBARRAN Not Available Start: 03-23-2023 End: 03-23-2023 ambulatory JUAN MANUEL ALBARRAN Not Available Start: 03-16-2023 End: 03-16-2023 ambulatory JUAN MANUEL ALBARRAN Not Available Start: 02-04-2023 End: 02-05-2023 ambulatory MERA Smith [facility] Start: 02-04-2023 End: 02-04-2023 Subsequent hospital visit by physician Li Lai [facility] Comment on above: AICD (automatic card ioverter/defibrillator) present; Congestive cardiomyopathy (CMS/HCC) Start: 12-16-[address] Juan Manuel Albarran II Facility:9507 Start: 11-20-[address] Juan Manuel Albarran II Facility:9507 Start: 11-09-[address] Juan Manuel Albarran II Facility:9507 Start: 10-16-[address] Juan Manuel Albarran II Facility:9507 Start: 08-21-2022 Message Juan Manuel Albarran Work Phone: [facility] Work Phone: Start: 08-19-2022 ambulatory MD MERA [...] Facility:9507 Start: 04-09-[address] Juan Manuel Albarran II Facility:9507 Start: 04-07-[address] Juan Manuel Albarran II Facility:9507 Start: 04-01-[address] Juan Manuel Albarran II Facility:9507 Start: 03-26-[address] Juan Manuel Albarran II Facility:9507 Start: 03-16-[address] Juan Manuel Albarran II Facility:9507 Start: 03-14-2022 End: 03-14-2022 ambulatory Beau Goldberg Facility:[facility] Start: 03-14-2022 End: 03-14-2022 ambulatory II Juan Manuel Deion Work Phone: [facility] Work Phone: Start: 03-14-2022 End: 03-14-2022 Patient encounter procedure II Juan Manuel Albarran Work Phone: [facility]-CT Scan [facility] [place] Start: 03-12-[address] Juan Manuel Albarran II Facility:9507 Start: 03-11-[address] Juan Manuel Albarran II Facility:9507 Start: 03-10-[address] Juan Manuel Albarran II Facility:9507 Start: 03-05-[address] Juan Manuel Albarran II Facility:9507 Start: 02-24-2022 End: 02-24-2022 ambulatory Beau Goldberg Facility:[facility] Start: 02-24-2022 End: 02-24-2022 Admission to same day surgery center II Juna Manuel Albarran Work Phone: [facility]-Surgery [facility] [place] Start: 02-24-2022 End: 02-24-2022 ambulatory II Juan Manuel Albarran Work Phone: [facility] Work Phone: Start: 02-24-[address] Juan Manuel Albarran II Facility:9507 Start: 02-20-2022 End: 02-20-2022 ambulatory Beau Goldberg Facility:[facility] Start: 02-20-2022 End: 02-20-2022 ambulatory II Juan Manuel Albarran Work Phone: [facility] Work Phone: Start: 02-20-2022 End: 02-20-2022 Patient encounter procedure II Juan Manuel Albarran Work Phone: [facility] T[facility]-Scw-Oxjknkuw Testing Start: 02-11-2022 End: 02-12-2022 ambulatory ERI ROCHA Facility:H1 Start: 01-15-2022 End: 01-15-2022 Emergency department patient visit Marc Rosario Facility:[facility] Start: 01-15-2022 End: 01-15-2022 Emergency department patient visit CRISTOBAL Juan Manuel Albarran Work Phone: [facility] Start: 01-06-2022 End: 01-08-[address] JUAN MANUEL ALBARRAN Facility:H1 Start: 11-18-2021 Chart Update Cristobal rhodes MD Work Phone: DV-Dvmxwnomzs-BHQ [facility] [address] [place] Work Phone: Start: 11-14-2021 AUDIT Provider Jessi vann Work Phone: [facility] Work Phone: Start: 11-14-2021 End: 11-14-2021 Evaluation and management of inpatient Cristobal Attizzani [facility] Senior Mainframe Developer Rm 08 Start: 11-01-2021 AUDIT Cristobal rhodes MD Work Phone: BX-Sglpkhifax-KKH [facility] [address] [place] Work Phone: Start: 10-31-2021 ambulatory CRISTOBAL ATTIZZANI Fac ility:[facility] Start: 10-31-2021 ambulatory CRISTOBAL ATTIZZANI Fac ility:[facility] Start: 10-31-2021 Encounter for blood typing CRISTOBAL ATTIZZANI [facility]3] Start: 10-31-2021 Encounter for other preprocedural examination CRISTOBAL ATTIZZANI [facility]3] Start: 10-31-2021 Encounter for preprocedural laboratory examination CRISTOBAL ATTIZZANI [facility]3] Start: 10-31-2021 Patient encounter procedure Corky Hassan Work Phone: MG-Pulm Sleep-PFT [facility] Chan Work Phone: Start: 10-31-2021 ambulatory CRISTOBAL ATTIZZANI Fac ility:[facility] Start: 09-24-2021 AUDIT Lissa Spears SUPPORT SERVICES REP -[employer] SUPERVISOR Work Phone: JT-Ynhpgsakye-QEH [facility] [address] [place] Work Phone: Start: 09-17-2021 Chart Update Andrea Moscoso Work Phone: XU-Ddilfswupd-HQD [facility] [address] [place] Work Phone: Start: 09-09-2021 ambulatory CRISTOBAL ATTIZZANI Fac ility:[facility] Start: 09-09-2021 Office consultation new/estab patient 80 min Manish Ojeda MD Work Phone: [facility]-CT Surgery-[facility] [address] Work Phone: Start: 09-09-2021 Current tobacco non- user cad cap copd pv apolinar Garcia MD Work Phone: AK-Uqtvbolfiz-EQI [facility] [address] [place] Work Phone: Start: 08-30-2021 AUDIT Diaz june DO Work Phone: TB-Ojpckdxlmp-BLM [facility] [address] [place] Work Phone: Start: 08-21-2021 LUCAS, Provider: ARVIN ROOM C,MG CARD, Status: Pen, Time: 1:00 PM Cristobal Garcia MD Work Phone: KC-Ffdqagpqry-SWS [facility] [address] [place] Work Phone: Start: 08-21-2021 ambulatory Juan Manuel Albarran II Facility:[facility] Start: 08-19-2021 End: 08-19-2021 ambulatory Cristobal Garcia Facility:[facility] Start: 08-19-2021 End: 08-19-2021 Patient encounter procedure II Juan Manuel Albarran Work Phone: [facility] Start: 08-13-2021 Current tobacco non- user cad cap copd pv apolinar Batista MD Work Phone: [facility] DO Work Phone: Start: 07-31-2021 End: 07-31-2021 ambulatory Cristobal Garcia Facility:[facility] Start: 07-31-2021 End: 07-31-2021 Patient encounter procedure II Juan Manuel Albarran Work Phone: [facility] Start: 07-23-2021 AUDIT Cristobal rhodes MD Work Phone: UI-Eonrginpzd-DQQ [facility] [place] Work Phone: Start: 07-22-2021 AUDIT Lissa Spears SUPPORT SERVICES REP -CARBON ELECTRODES SUPERVISOR Work Phone: FK-Zqfcgqgsdu-FPP [facility] [address] [place] Work Phone: Start: 07-19-2021 Chart Update Diaz june DO Work Phone: DD-Uflyrxdmre-GGZ [facility] [address] [place] Work Phone: Start: 07-18-2021 Patient encounter procedure [id number] HHVI ULTRASOUND 01 Work Phone: [facility] Work Phone: Start: 06-26-2021 AUDIT Diaz june DO Work Phone: AI-Xytjrqvscd-SIE [facility] [address] [place] Work Phone: Start: 06-21-2021 Office outpatient vi sit 15 minutes Kelly Blume SUPPORT SERVICES REP-CARBON ELECTRODES SUPERVISOR Work Phone: AV-Bmzfmrextx-FPM [facility] [address] [place] Work Phone: Start: 05-20-2021 Office outpatient vi sit 25 minutes Diaz Canchola DO Work Phone: VX-Pzgijrcnzp-Bidsbq ke SJW 260 DO Work Phone: Start: 05-20-2021 Patient encounter procedure Diaz Canchola DO Work Phone: AI-Xiyxyhmrtv-LUC [facility] [address] [place] Work Phone: Start: 10-17-2020 AUDIT Kelly Ruth SUPPORT SERVICES REP-CARBON ELECTRODES SUPERVISOR Work Phone: EN-Roebzvjavl-FKL [facility] [address] [place] Work Phone: Start: 10-08-2020 JOAQUÍN Moscoso Work Phone: GU-Bfiexyqj-Nmzfamw Moore Work Phone: Start: 10-01-2020 Telephone encounter Kelly Bl ume SUPPORT SERVICES REP-CARBON ELECTRODES SUPERVISOR Work Phone: HC-Kxmrdqqxln-IEI [facility] [address] [place] Work Phone: Start: 09-28-2020 Office outpatient vi sit 25 minutes Kelly Blume SUPPORT SERVICES REP-CARBON ELECTRODES SUPERVISOR Work Phone: ZP-Beurbaohem-XPP [facility] [address] [place] Work Phone: Procedures Date Procedure [...] on above: Performed By: #### T+S #### [facility] [address] [place] [address] Start: 08-05-2021 Follow-up visit Start: 07-18-2021 Echocardiography Diaz Canchola DO Work Phone: Start: 10-06-2020 Thyrotropin [Units/volume] in Serum or Plasma Li Remote Appendectomy Kelly Garciaume SUPPORT SERVICES REP-CARBON ELECTRODES SUPERVISOR Work Phone: Cardiac catheterization Barber Canchola DO Work Phone: Cholecystectomy Kelly Bandar e SUPPORT SERVICES REP-CARBON ELECTRODES SUPERVISOR Work Phone: Insertion of pacemak er pulse generator Diaz Patinorias DO Work Phone: Insertion of pulse g enerator of implantable cardioverter defibrillator Kelly Blpiedad SUPPORT SERVICES REP-CARBON ELECTRODES SUPERVISOR Work Phone: Comment on above: Bivent ICD placed 01/2020; Removal of internal cardiac defibrillator Diaz Patinorias DO Work Phone: SARS Antigen (LFIA) II Royal kim Albarran Work Phone: Tonsillectomy and adenoidectomy Kelly Blume SUPPORT SERVICES REP-CARBON ELECTRODES SUPERVISOR Work Phone: Total colonoscopy Diaz hammond DO Work Phone: Plan of Treatment Date Care Activity Detail Author Start: 01-22-2028 Lipid panel Lipid Panel [facility] Start: 03-09-2023 Zoster Vaccines (2 of 2) Zoste r Vaccines (2 of 2) [facility] Start: 02-20-2023 FUV, Provider: Mera Batista, Status: Pen, Time: 1:20 PM FUV, Provider: Mera Batista, Status: Pen, Time: 1:20 PM [facility] Work Phone: Start: 02-20-2023 Patient encounter procedure FUVPACEMKR, Provider: [facility],EMCPKLAUS, Status: Pen, Time: 12:20 PM [facility] Work Phone: Start: 02-20-2023 End: 02-20-2023 Patient encounter procedure [facility] Start: 11-14-2022 Patient encounter procedure Outpatient Cardiology [place] [id number] Start: 14-Nov-2022 10:30 Lissa Spears [place]iology [facility] Start: 11-14-2022 KRISTIN, Provider : Lissa Spears, Status: Pen, Time: 10:30 AM VIRFUVCHILOE, Provider: Lissa Spears, Status: Pen, Time: 10:30 AM KC-Krlroyuczc-CMY [facility] [address] [place] Work Phone: Start: 10-31-2022 Creatinine measurement Creatinine Le cristine [facility] Start: 10-31-2022 Potassium measurement Potassium Valerie l [facility] Start: 10-01-2022 DTaP/Tdap/Td Vaccine s (2 - Td or Tdap) DTaP/Tdap/Td Vaccines (2 - Td or Tdap) [facility] Start: 08-19-2022 FUV, Provider: Mera Batista, Status: Pen, Time: 2:00 PM FUV, Provider: Mera Batista, Status: Pen, Time: 2:00 PM [facility] 320 DO Work Phone: Start: 08-19-2022 Patient encounter procedure Outpatient [facility] Start: 19-Aug-2022 14:00 Mera Batista Intent [facility] [place] Start: 07-18-2022 Echocardiography Echocardiogram [facility] Start: 02-24-2022 [facility] Start: 02-24-2022 [facility] Start: 02-18-2022 FUV, Provider: Randee Perdomo, Status: Pen, Time: 1:00 PM FUV, Provider: Randee Perdomo, Status: Pen, Time: 1:00 PM [facility] 320 DO Work Phone: Start: 02-18-2022 Patient encounter procedure [facility] [place] Start: 12-19-2021 Patient encounter procedure [facility] [place] Start: 12-19-2021 VIRFUVHOME, Provider : Josef Rush, Status: Pen, Time: 10:30 AM VIRFUVHOME, Provider: Josef Rush, Status: Pen, Time: 10:30 AM XY-Ziqcesadex-OES [facility] [address] [place] Work Phone: Start: 12-19-2021 VIRFUVHOME, Provider : Lissa Spears, Status: Pen, Time: 10:30 AM VIRFUVHOME, Provider: Lissa Spears, Status: Pen, Time: 10:30 AM MG-Pulm Sleep-PFT [place] 6 Work Phone: Start: 11-21-2021 Patient encounter procedure [facility] [place] Start: 11-21-2021 VIRFUREID, Provider : Lissa Spears, Status: Pen, Time: 11:00 AM VIRFUREID, Provider: Lissa Spears, Status: Pen, Time: 11:00 AM TN-Kvnigbsoqx-ADL [facility] [address] [place] Work Phone: Start: 11-15-2021 End: 11-16-2022 [facility] Start: 11-14-2021 Patient encounter procedure FUVPACEMKR, Provider: [facility],EMCPKLAUS, Status: Pen, Time: 12:20 PM QT-Ovlowpvuhv-HOD [facility] [address] [place] Work Phone: Start: 11-14-2021 End: 11-15-2022 [facility]3] Comment on above: for patients 120 kg [...] RM 2,PULM, Status: Pen, Time: 11:30 AM FL-Oaostigmqr-OVY [facility] [address] [place] Work Phone: Start: 10-31-2021 ABG, Provider: JESUS SALINAS 6TH FLR PFT RM 2,PULM, Status: Pen, Time: 11:15 AM ABG, Provider: JESUS MESSER 6TH FLR PFT RM 2,PULM, Status: Pen, Time: 11:15 AM OA-Bdyvklmqdv-CDH [facility] [address] [place] Work Phone: Start: 10-31-2021 PST, Provider: [facility] Jaki SALINAS 6TH FLR PFT [address],PULM, Status: Pen, Time: 10:45 AM PST, Provider: JESUS MESSER 6TH FLR PFT [address],PULM, Status: Pen, Time: 10:45 AM ZL-Fgurzkuozq-ZIF [facility] [address] [place] Work Phone: Start: 10-06-2021 Thyroid stimulating hormone measurement TSH Level [facility] Start: 09-09-2021 NPVTAVR, Provider: Manish Ojeda, Status: Pen, Time: 11:30 AM NPVTAVR, Provider: Manish Ojeda, Status: Pen, Time: 11:30 AM [facility] DO Work Phone: Start: 09-09-2021 NPVVALVECL, Provider : Cristobal Garcia, Status: Pen, Time: 11:00 AM NPVVALVECL, Provider: Cristobal Garcia, Status: Pen, Time: 11:[address] [facility] 320 DO Work Phone: Start: 08-21-2021 LUCAS, Provider: SUZANNEEC HO ROOM C,MG CARD, Status: Pen, Time: 1:00 PM LUCAS, Provider: SUZANNEECHO ROOM C,MG CARD, Status: Pen, Time: 1:[address] [facility] 320 DO Work Phone: Start: 08-13-2021 FUV, Provider: Mera Batista, Status: Pen, Time: 12:40 PM FUV, Provider: Mera Batista, Status: Pen, Time: 12:40 PM SW-Ensxedfqdk-HUL [facility] [address] [place] Work Phone: Start: 08-13-2021 Patient encounter procedure FUVPACEMKR, Provider: [facility],EMCPACEMKR, Status: Pen, Time: 11:40 AM CO-Sxsopjmnly-VTR [facility] [address] [place] Work Phone: Start: 08-05-2021 NPVTAVR, Provider: Manish Ojeda, Status: Pen, Time: 11:00 AM NPVTAVR, Provider: Manish Ojeda, Status: Pen, Time: 11:00 AM [facility] Work Phone: Start: 08-05-2021 NPVVALVECL, Provider : Cristobal Garcia, Status: Pen, Time: 10:30 AM NPVVALVECL, Provider: Cristobal Garcia, Status: Pen, Time: 10:30 AM [facility] Work Phone: Start: 08-02-2021 LUCAS, Provider: MP-EC HO ROOM C,MG CARD, Status: Pen, Time: 10:30 AM LUCAS, Provider: MP-ECHO ROOM C,MG CARD, Status: Pen, Time: 10:30 AM NE-Ftgvlqmvbb-KMZ [facility] [address] [place] Work Phone: Start: 07-18-2021 ECHO, Provider: CARSON NEWTON [facility] ULTRASOUND 01,[id number], Status: Pen, Time: 2:00 PM ECHO, Provider: CARROLL HH[facility] ULTRASOUND 01,[id number], Status: Pen, Time: 2:00 PM YY-Ilncxbmamu-QYZ [facility] [address] [place] Work Phone: Start: 06-21-2021 FUV, Provider: Kelly Ruth, Status: Pen, Time: 10:00 AM FUV, Provider: Kelly Ruth, Status: Pen, Time: 10:00 AM XU-Sbaupuccdd-ZMN [facility] [address] [place] Work Phone: Start: 05-15-2021 COVID-19 Vaccine (4 - Moderna series) COVID-19 Vaccine (4 - Moderna series) [facility] Start: 02-01-2021 Patient encounter procedure FUVPACEMKR, Provider: [facility],EMCPACEMKR, Status: Pen, Time: 2:20 PM XV-Gqgxxhmmqe-DAK [facility] [address] [place] Work Phone: Start: 11-12-2020 FUV, Provider: Diaz Canchola, Status: Pen, Time: 2:40 PM FUV, Provider: Diaz Canchola, Status: Pen, Time: 2:40 PM QW-Xoopudtleu-FRC [facility] [address] [place] Work Phone: Start: 2012 Hepatitis B Vaccines (1 of 3 - Risk 3-dose series) Hepatitis B Vaccines (1 of 3 - Risk 3-dose series) [facility] Start: 10-21-1971 Hepatitis A Vaccines (1 of 2 - Risk 2-dose series) Hepatitis A Vaccines (1 of 2 - Risk 2-dose series) [facility] Start: 1970 Diabetes mellitus screening Diabetes Screening [facility] Start: 1952 Medicare Annual Well ness Visit Medicare Annual Wellness Visit (AWV) [facility] Start: 1950 Screening for malign ant neoplasm of colon [facility] Cardiac defibrillato r in place Cardiac defibrillator in place [facility]3] End: 02-04-2023 Cardiac Device Check - Remote [facility] Service Area Work Phone: Comment on above: Once for 1 Occurrenc es starting 02/04/2023 until 02/04/2023 Cardiomyopathy Cardiomyopathy [facility] Dyspnea Dyspnea [facility]3] Encounter for implan table defibrillator reprogramming or check Encounter for implantable defibrillator reprogramming or check [facility]3] Goals of care, counseling/discussion [facility]3] Other specified afte rcare following surgery Other specified aftercare following surgery [facility]3] Patient Education [facility] Work Phone: Patient referral [facility] Work Phone: Immunizations Immunization Date Immunization Notes Care Provider Princess leblanc 11-21-2021 Prevnar 20 0.5 ML Intramuscular Suspension Prefilled Syringe Juan Manuel Albarran Work Phone: [facility] Work Phone: 03-20-2021 Moderna COVID-19 Vac cine 100 MCG/0.5ML Intramuscular Suspension Mera Batista MD Work Phone: [facility] [address] DO Work Phone: 02-25-2021 influenza, high dose seasonal, preservative-free Mera Batista MD Work Phone: [facility] [address] DO Work Phone: 09-14-2020 Moderna COVID-19 Vac cine 100 MCG/0.5ML Intramuscular Suspension Diaz Canchola DO Work Phone: PR-Lkjatrbpda-EDY [facility] [address] [place] Work Phone: 08-20-2020 Moderna COVID-19 Vac cine 100 MCG/0.5ML Intramuscular Suspension Diaz Canchola DO Work Phone: HJ-Ggtwosztzl-USL [facility] [address] [place] Work Phone: 06-11-2020 pneumococcal polysaccharide vaccine, 23 valent Diaz Canchola DO Work Phone: JC-Vmudvdegqa-MTY [facility] [address] [place] Work Phone: 08-25-2018 pneumococcal polysaccharide vaccine, 23 valent Diaz Canchola DO Work Phone: YK-Iqzexkefsp-FJT [facility] [address] [place] Work Phone: 02-02-2017 seasonal influenza, intradermal, preservative free Diaz Canchola DO Work Phone: FG-Kkgpmhboyz-NCD [facility] [address] [place] Work Phone: 12-25-2015 influenza, injectabl e, quadrivalent, contains preservative Diaz Canchola DO Work Phone: KF-Utgzkyxqdg-BTZ [facility] [address] [place] Work Phone: 01-15-2015 influenza, seasonal, injectable Diaz Canchola DO Work Phone: QY-Olcscgcpon-QDC [facility] [address] [place] Work Phone: Payers Date Payer Category Payer Medicare [employer] MEDICARE A ETNA MEDICARE VALUE PLAN [id number] 2022-Present [id number] [place] [address] [id number] 2021 Self-pay [id number] 2021 Unknown [id number] 2021 Unknown [id number] 1959 Private Health Insurance [facility] [id number] 1952 Unknown [id number] 2.16.840.1.627477.3.579.2.5 1952 Unknown [id number] 2..840.1.119326.3.579.2.5 1952 Unknown [id number] 2.16.840.1.774585.3.579.2.5 93 1952 Unknown [id number] 2.16.840.1.155730.3.579.2.3 1952 Unknown [id number] 2.16.840.1.931947.3.579.2.3 1952 Unknown [id number] 2.16.840.1.613949.3.579.2.3 1952 Unknown [id number] 2.16.840.1.872105.3.579.2.3 1952 Unknown [id number] 2.16.840.1.053765.3.579.2.3 1952 Unknown [id number] 2.16.840.1.108054.3.579.2.3 56 1952 Unknown [id number] 2.16.840.1.680511.3.579.2.3 56 1952 Unknown [id number] 2.16.840.1.483950.3.579.2.1 246 1952 Unknown [id number] 2.16.840.1.317591.3.579.2.1 8 1952 Unknown [id number] 2.16.840.1.489513.3.579.2.1 1952 Unknown [id number] 2.16.840.1.603583.3.579.2.1 1952 Unknown [id number] 2.16.840.1.584315.3.579.2.1 1952 Unknown [id number] 2.16.840.1.586365.3.579.2.1 8 1952 Unknown [id number] 2.16.840.1.790889.3.579.2.1 1952 Unknown [id number] 2.16.840.1.641951.3.579.2.1 1952 Unknown [id number] 2.16.840.1.115381.3.579.2.1 1952 Unknown [id number] 2.16.840.1.026070.3.579.2.1 1952 Unknown [id number] 2.16.840.1.945266.3.579.2.1 1952 Unknown [id number] 2.16.840.1.203066.3.579.2.1 1952 Unknown [id number] 2.16.840.1.259895.3.579.2.1 1952 Unknown [id number] 2.16.840.1.046194.3.579.2.1 1952 Unknown [id number] 2.16.840.1.156627.3.579.2.1 1952 Unknown [id number] 2.16.840.1.333592.3.579.2.1 1952 Unknown [id number] 2.16.840.1.579146.3.579.2.1 1952 Unknown [id number] 2.16.840.1.764975.3.579.2.1 1952 Unknown [id number] 2.16.840.1.514513.3.579.2.1 1952 Unknown [id number] 2.16.840.1.595056.3.579.2.1 1952 Unknown [id number] 2.16.840.1.570695.3.579.2.1 1952 Unknown [id number] 2.16.840.1.031189.3.579.2.1 1952 Unknown [id number] 2.16.840.1.751352.3.579.2.1 1952 Unknown [id number] 2.16.840.1.234175.3.579.2.1 1952 Unknown [id number] 2.16.840.1.256084.3.579.2.1 1952 Unknown [id number] 2.16.840.1.989039.3.579.2.1 1952 Unknown [id number] 2.16.840.1.462453.3.579.2.1 1952 Unknown [id number] 2.16.840.1.369813.3.579.2.1 1952 Unknown [id number] 2.16.840.1.003586.3.579.2.1 1952 Unknown [id number] 2.16.840.1.054579.3.579.2.1 259 1952 Unknown [id number] 2.16.840.1.136169.3.579.2.1 259 1952 Unknown [id number] 2.16.840.1.378944.3.579.2.1 259 1952 Unknown [id number] 2.16.840.1.673324.3.579.2.1 259 Medicare [id number] Unknown Unknown [id number] 2.16.840.1.853705.3.579.2.5 31 Unknown [id number] 2.16.840.1.079442.3.579.2.5 31 Unknown [id number] 2.16.840.1.826986.3.579.2.5 31 Unknown [id number] 2.16.840.1.738446.3.579.2.5 31 Unknown [id number] 2.16.840.1.932212.3.579.2.5 31 Unknown [id number] 2.16.840.1.143867.3.579.2.5 31 Social History Date Type Detail Facility Caffeine use Caffeine use FO-Jvmxpszdzo-K [facility] [address] [place] Work Phone: Comment on above: 3 cups a day; Start: 09-14-2019 End: 02-24-2022 Tobacco smoking status NHIS Ex-smoker (finding) [facility] Start: 1950 Sex Assigned At Male F [facility] Tobacco smoking consumption unknown [facility]3] Start: 01-15-2022 End: 01-15-2022 Tobacco smoking status TNIS Never smoked tobacco (finding) [facility] Start: 1950 Sex Assigned At Not on file [facility] Work Phone: Gender identity Not on file [facility] Work Phone: Goals Date Patient Goal Desired Activity /State Functional Status Date Assessment Result Facility Functional observable [facility] Mental Status Date Assessment Result Facility 11-14-2021 Cognitive functi ons [id number] [facility]3] Clinical Notes 08-13-2020 to 11-14-2021 <item><item><item><item><item><item><item><item><item><item><item><item> Note Date & Type Note Facility 11-14-2021 Note Send Summary: Discharge Summary Providers: Provider RoleProvider Name ReferringDiaz Canchola Guilherme PrimaryBerry, Daniel B Note Recipients: Diaz Canchola DO Discharge: Summary: Admission Date: .14-Nov-2021 09:30:00 Discharge Date: 14-Nov-2021 Attending Physician at Discharge: Cristobal Garcia Admission Reason: MitraClip(1) Final Discharge Diagnoses: Mitral regurgitation Procedures: none Condition at Discharge: Satisfactory Disposition at Discharge: .Home Hospital Course: Healthcare Administration Intern: Dr. Diaz Canchola Patient is a pleasant 70 year-old male with previous medical history significant for hypertension, non-ischemic cardiomyopathy, s/p STITCH BONDING MACHINE DRAWER IN-D, who was referred for evaluation of mitral and tricuspid regurgitation. Patient endorses progressively worsening dyspnea with minimal exertion (walking less than 1 block) and orthopnea. 11/14/2021: S/P cancelled procedure - After general anesthesia, TTE showing only mild Mitral Regurgitation, probably due to clinical compensation and S/P STITCH BONDING MACHINE DRAWER IN with LV function improvement, therefore the procedure [...] have any concerns, you may contact the Senior Mainframe Developer or if any of these symptoms become excessive, contact your devulcanizer tender or go to the emergency room No [...] you, please have them fax results to [phone]. You have been given the order requisition [...] You will follow up with your primary devulcanizer tender in 6-10 weeks No elective dental procedures or cleanings for 3 months post procedure You will need dental prophylaxis (oral antibiotic) prior to dental work/cleanings for life. Please call for any questions or concerns: - Nurse Line M-F 9am-4pm: - On-Call Heating Unit Installer: Follow Up Appointments: Follow-Up Appointment 01: Physician/Dept/Service: Lissa Spears CNP Reason for Referral: 1 week Structural Heart PHARMACY TECHNICIAN PROGRAM DIRECTOR follow-up Scheduled Date/Time: 21-Nov-2021 11:00 Location: virtual visit Phone Number: Scheduling questions [phone] or Structural Heart Team [phone] Follow-Up Appointment 02: Physician/Dept/Service: Lissa Spears CNP Reason for Referral: 1 month Structural Heart PHARMACY TECHNICIAN PROGRAM DIRECTOR follow-up Scheduled Date/Time: 19-Dec-2021 10:30 Location: virtual visit Phone Number: Scheduling questions [phone] or Structural Heart Team [phone] Follow-Up Appointment 03: Physician/Dept/Service (more content not included)... [facility]3] 11-14-2021 Hospital Discharge instructions Activity:May not drive [...] you, please have them fax results to [phone].You have been given the order requisition for [...] dischargeYou will follow up with your primary devulcanizer tender in 6-10 weeksNo elective dental procedures or cleanings for 3 months post procedureYou will need dental prophylaxis (oral antibiotic) prior to dental work/cleanings for life. Please call for any questions or concerns: - Nurse Line M-F 9am-4pm: - On-Call Heating Unit Installer: call Provider If:Breathing faster than normal. Temperature is [...] have any concerns, you may contact the Senior Mainframe Developer or if any of these symptoms become excessive, contact your devulcanizer tender or go to the emergency room. No [...] Gonzales for Referral: 1 week Structural Heart PHARMACY TECHNICIAN PROGRAM DIRECTOR follow-upScheduled Date/Time: 21-Nov-2021 11:00Location: virtual visitPhone Number: Scheduling questions [phone] or Structural Heart Team [phone]: Please keep a record of your daily weights, as well as your blood pressures (take your blood pressure 2 times a day atleast 1 hour after your pills). Bring these results to your follow up appointmentsFollow Up Appointment 2:Physician/Dept/Service: Clayton Gonzales for Referral: 1 month Structural Heart PHARMACY TECHNICIAN PROGRAM DIRECTOR follow-upScheduled Date/Time: 19-Dec-2021 10:30Location: virtual visitPhone Number: Scheduling questions [phone] or Structural Heart Team [phone]: You have been given the order requisition for the 1 month ECHO at the time of your discharge. Please call and schedule this ECHO at your LOCAL center (no sooner than 23 days after your procedure date).Follow Up Appointment 3:Physician/Dept/Service: Clayton Gonzales for Referral: 1 year Structural Heart PHARMACY TECHNICIAN PROGRAM DIRECTOR follow-upScheduled Date/Time: 14-Nov-2022 10:30Location: virtual visitPhone Number: Scheduling questions [phone] or Structural Heart Team [phone] [facility]3] 11-14-2021 Note History of Present I llness: Admission Reason: MitraClip HPI: Healthcare Administration Intern: Dr. Diaz Canchola Patient is a pleasant 70 year-old male with previous medical history significant for hypertension, non-ischemic cardiomyopathy, s/p STITCH BONDING MACHINE DRAWER IN-D, who was referred for evaluation of mitral [...] mitral regurgitation # Non-ischemic cardiomyopathy, HFrEF, s/p STITCH BONDING MACHINE DRAWER IN-D Considering his cardiac comorbidities including severely reduced [...] the note. I personally evaluated the patient [id number] Electronic Signatures: Cristobal Garcia) (Signed 14-Nov-2021 16:57) Authored: Note Completion Co-Signer: History of Present Illness, Comorbidities, Allergies, Medications Prior to Admission, Objective, Assessment and Plan, Note Completion Andrea Cuevas (Fellow)) (Signed 14-Nov-2021 13:19) Authored: History of Present Illness, Comorbidities, Allergies, Medications Prior to Admission, Objective, Assessment and Plan, Note Completion Last Updated: 14-Nov-2021 16:57 by Cristobal Garcia) [facility]3] 11-14-2021 Note History & Physical R eviewed: [...] the note. I personally evaluated the patient [id number] Electronic Signatures: Cristobal Garcia) (Signed 14-Nov-2021 16:57) Authored: Note Completion Co-Signer: History & Physical Reviewed, Airway/Sedation, ERAS, Consent, Note Completion Andrea Ceuvas (Fellow)) (Signed 14-Nov-2021 13:18) Authored: History & Physical Reviewed, Airway/Sedation, ERAS, Consent, Note Completion Last Updated: 14-Nov-2021 16:57 by Cristobal Garcia () [facility]3] 11-14-2021 Note Clinical Note - Phar karen [...] Medication reconciliation complete Please reach out via [employer] for questions Jacqueline Jones, PharmD, Meds PGY1 Resident Meds Ambulatory and Retail Services Is This Intervention Medication Reconciliation Relatedyes Time Rkdrgezn39-29 minutes Additional NotesDrug Name: digoxin 125 mcg [...] No Known Allergies Electronic Signatures: Jacqueline Jones ([facility]) (Signed 11-Aug-2022 10:52) Authored: Education, Allergy Teresa Valverde ([facility]) (Signed 14-Nov-2021 11:24) Co-Signer: Education, Allergy Last Updated: 14-Nov-2021 11:24 by Teresa Valverde ([facility]) [facility] (formerly [facility])[3] 05-20-2021 History of Present illness Narrative [address] Canchola here for 1 month follow up for heart failure. Last visit 05/20/21, increased Entresto 97-103mg BID. Order for RFP/BNP/Dig.PMHx: HFrEF (LVEF 20%) s/p STITCH BONDING MACHINE DRAWER IN-D 01/2020 ([facility])/ NICM/ valvular dx (severe [...] edema. Home BP 130s/80s. HR 80s. Weight [id number]. Decreased appetite w/intermittent nausea. Eating one meal/day. [...] medication regimen. He denies medication side effects. [id number] Rober [place] [address] [place] Work Phone: 05-10-2021 History of Present illness Narrative [address] Canchola here for 6 week follow up for heart failure. Last visit 08/13/20, no medication changes.PMHx: HFrEF (LVEF 20%) s/p STITCH BONDING MACHINE DRAWER IN-D 01/2020 ([facility])/ NICM/ valvular dx (severe [...] edema. Home BP 130s/80s. HR 80s. Weight [id number]. Decreased appetite w/intermittent nausea. Eating one meal/day. [...] medication regimen. He denies medication side effects. [facility] [employer] [address] [place] Work Phone: Chief complaint Narrative - Reported CORKY DUENAS is being seen for a 6 month follow-up of cardiomyopathy, heart failure and a routine medication evaluation. [facility] [employer] [address] [place] Work Phone: Chief complaint Narrative - Reported CORKY DUENAS is being seen for a 6 month follow-up of cardiomyopathy, heart failure and a routine medication evaluation. [facility] 260 DO Work Phone: Chief complaint Narrative - Reported Patient is here for a Valve & Structural Heart evaluation for mitral / tricuspid regurgitation following a referral by Dr. Diaz Canchola. RUBY FraserN, RN [facility] 1800 Work Phone: Evaluation note No assessment information [facility] Work Phone: Evaluation note Diagnosis AICD (automatic cardioverter/defibrillator) present Automatic implantable cardiac defibrillator in situ Congestive cardiomyopathy (CMS/HCC) Other primary cardiomyopathies documented in this encounter [facility] Work Phone: Evaluation note* Diagnosis AICD (automatic cardioverter/defibrillator) present Automatic implantable cardiac defibrillator in situ Congestive cardiomyopathy (CMS/HCC) Other primary cardiomyopathies documented in this encounter [facility] Work Phone: History of Present illness Narrative* Referring providers: Structural Heart Team * Gen devulcanizer tender: Stephen ([facility]) * EP: Lynne ([facility]) * Mr. Duenas is a 70 y/o M with a PMHx sig for stage D systolic HF/NICM/HFrEF with severe LV dysfunction (LVEF 20-25%) s/p STITCH BONDING MACHINE DRAWER IN-D with associated functional mitral regurgitation, hypothyroidism, and [...] dizziness a few weeks. He went to [place]. * Reports full adherence to low sodium diet at home * STITCH BONDING MACHINE DRAWER IN-D was placed January [address] Mera Batista * PMHx: * stage D systolic HF/NICM/HFrEF with severe LV dysfunction (LVEF 20-25%) s/p STITCH BONDING MACHINE DRAWER IN-D with associated functional mitral regurgitation, hypothyroidism, CKD * SocHx: * Lives in [place], [place] with mother (in her 80s), he [...] cancer. Denies other family history of CAD, OR, CHF, OHS, MCS or OHT * Mother: DM, CKD * Father: ?CVA, from brain cancer in his 40's [id number] Rober Martinez [address] [place] Work Phone: History of Present illness Narrative* Referring providers: Structural Heart Team * [facility]ul[facility]izer [facility] * EP: Lynne ([facility]) * Mr. Duenas is a 70 y/o M with a PMHx sig for stage C/D systolic HF/NICM/HFrEF with severe LV dysfunction (LVEF 20-25%) s/p STITCH BONDING MACHINE DRAWER IN-D with associated functional mitral regurgitation, hypothyroidism, and [...] dizziness a few weeks. He went to [place]. * Reports full adherence to low sodium diet at home * STITCH BONDING MACHINE DRAWER IN-D was placed January [address] Mera Batista * PMHx: * stage C/D systolic HF/NICM/HFrEF with severe LV dysfunction (LVEF 20-25%) s/p STITCH BONDING MACHINE DRAWER IN-D with associatedfunctional mitral regurgitation, hypothyroidism, CKD * SocHx: * Lives in [place], [place] with mother (in her 80s), he [...] cancer. Denies other family history of CAD, OR, CHF, OHS, MCS or OHT * Mother: DM, CKD * Father: ?CVA, from brain cancer in his 40's [facility] 260 DO Work Phone: History of Present [...] block/complete heart block status post biventricular defibrillator 2020. Chronic. Stable. * [facility] CD HF A5 BiV ICD. Stable. Chronic. Reviewed device check. Normal device function. Order device check. Alternate remote check with device clinic paired with EP office visit. Personally paired pt s device with [employer] pulse nabeel; troubleshooting of nabeel performed and called [employer] support for 20 minutes troubleshooting * Normal cors by catheterization. Ejection fraction 30% by myocardial perfusion scanning 2019. LVEF20% by echo 2020. [place] [employer] 3C heart failure. Chronic. Stable. [...] needed, treatment options, risks, benefits, and imponderables. [employer] [facility] lifestyle changes and behavioral modification discussed. All questions answered in detail.Counseling over 50% visit regarding above. Patient appreciative of care. * Extended time of visit for troubleshooting remote monitor nabeel and pairing ICD and nabeel. -[facility] 320 DO Work Phone: History of Present illness Narrative* Healthcare Administration Intern: Dr. Diaz Canchola * Patient is a pleasant 70 year-old male with previous medical history significant for hypertension, non-ischemic cardiomyopathy, s/p STITCH BONDING MACHINE DRAWER IN-D, who was referred for evaluation of mitral and tricuspid regurgitation. * Patient endorses progressively worsening dyspnea with minimal exertion (walking less than 1 block) and orthopnea. * NYHA: Class 3 * Frailty score: 0/5 * EKG: pacing rhythm * TTE: LVEF 20%, severe MR, severe TR, RVSP 54.5 mmHg * LUCAS: LVEF 15-20%, severe MR with central jet, severe TR * LHC (): normal coronaries * Dental assessment: no significant signs of infection * STS Score: Risk of Mortality: * 5.448% * Renal Failure: * 3.520% * Permanent Stroke: * 1.338% * Prolonged Ventilation: * 14.742% * DSW Infection: * 0.105% * Reoperation: * 5.124% * Morbidity or Mortality: * 18.746% * Short Length of Stay: * 26.799% * Long Length of Stay: * 9.303% [employer] [address] [place] Work Phone: History of Present illness Narrative* Healthcare Administration Intern: Dr. Diaz Canchola * Patient is a pleasant 70 year-old male with previous medical history significant for hypertension, non-ischemic cardiomyopathy, s/p STITCH BONDING MACHINE DRAWER IN-D, who was referred for evaluation of mitral and tricuspid regurgitation. * Patient endorses progressively worsening dyspnea with minimal exertion (walking less than 1 block) and orthopnea. * NYHA: Class 3 * Frailty score: 0/5 * EKG: pacing rhythm * TTE: LVEF 20%, severe MR, severe TR, RVSP 54.5 mmHg * LUCAS: LVEF 15-20%, severe MR with central jet, severe TR * LHC (): normal coronaries * Dental assessment: no significant signs of infection * STS Score: Risk of Mortality: * 5.448% * Renal Failure: * 3.520% * Permanent Stroke: * 1.338% * Prolonged Ventilation: * 14.742% * DSW Infection: * 0.105% * Reoperation: * 5.124% * Morbidity or Mortality: * 18.746% * Short Length of Stay: * 26.799% * Long Length of Stay: * 9.303% [employer] [address] [place] Work Phone: Hospital Discharge instructions Additional Instructions Tylenol every 4 hours as needed for [facility] Work Phone: Summary Purpose Family History No [...] Documents on File Type Date Recorded Patient Box Gluer Expl anation Living Will 07/04/2020 Chief Complaint CORKY DUENAS is being seen for a 6 week follow-up of heart failure.CORKY DUENAS is being seen for a 1 [...] Referral Specialty Diagnoses / Procedures Referred By Contac t Referred To Contact Cardiology Diagnoses AICD (automatic cardioverter/defibrillator) present Congestive cardiomyopathy (CMS/HCC) Procedures Cardiac Device Check - Remote Mera Batista MD [address] [facility] Medical Office [facility], [facility] [address] [place] [address] Referral ID Status Reason Start Date Expiration Date Visits Requested Visits Authorized [id number] Pending Review Perform Procedure 02/04/2023 02/04/2024 1 1 Additional Source Comments (unrecognized sect ion and content) No Status Records FoundNo Status Records FoundNo Status Records FoundNo Status Records FoundNo Status Records FoundNo Status Records FoundNo Status Records FoundNo Status Records Found INFORMATION SOURCE (unrecogn ized section and content) DATE CREATED AUTHOR 09/12/2018 [facility] DATE CREATED AUTHOR AUTHOR'S ORGANIZ ATION 09/14/2021 [employer] DATE CREATED AUTHOR AUTHOR'S ORGANIZ ATION 03/15/2022 [facility] DATE CREATED AUTHOR AUTHOR'S ORGANIZ ATION 08/18/2022 [facility] DATE CREATED AUTHOR AUTHOR'S ORGANIZ ATION 08/20/2022 [facility] DATE CREATED AUTHOR AUTHOR'S ORGANIZ ATION 02/09/2023 [facility] DATE CREATED AUTHOR AUTHOR'S ORGANIZ ATION 02/22/2023 [facility] DATE CREATED AUTHOR AUTHOR'S ORGANIZ ATION 04/27/2023 [facility] EPIC Care Teams (unrecognized sec [...] Active Beau Goldberg MD Attending Provider Active Assigner Relationship Specialty Start Date End Date Juan Manuel Albarran MD [address] [facility] [address] [place] [address] PCP - General 07/31/22 Assigner Relationship Specialty Start Date End Date Juan Manuel Albarran MD [address] [facility] [address] [place] [address] PCP - General 07/31/22 Goals (unrecognized section [...] - Remote Mera Batista MD [address] [facility] [place] [address] [place] [address] Referral ID Status Reason Start Date Expiration Date Visits Requested Visits Authorized [id number] Pending Review Perform Procedure 02/04/2023 02/04/2024 1 [...] BE BASED ON THE PRIMARY CLINICAL RECORDS. [employer] provides no warranty or guarantee of the accuracy or completeness of information in this document.
[2023-05-08 12:44] LABS: Basophils Absolute Auto 0.1 10^3/uL (0.0-0.1); Basophils Percent Auto 1.5 % (0.2-2.0); Eosinophils Absolute Auto 0.1 10^3/uL (0.0-0.7); Eosinophils Percent Auto 4.1 % (0.9-7.0); Hematocrit 40.7 % (42.0-54.0); Immature Granulocytes Abs Auto 0.01 10^3/uL (0.00-0.03); Immature Granulocytes Pct Auto 0.3 % (0.0-0.5); Lymphocytes Absolute Auto 0.8 10^3/uL (1.2-3.8); Mean Corpuscular HGB Conc 31.9 g/dL (29.9-35.2); Mean Corpuscular Hemoglobin 31.4 pg (25.9-34.0); Mean Corpuscular Volume 98.3 fL (80.0-94.0); Mean Platelet Volume 11.1 fL (9.5-13.5); Monocytes Absolute Auto 0.2 10^3/uL (0.3-0.8); Monocytes Percent Auto 6.4 % (1.7-12.0); Neutrophils Absolute Auto 2.2 10^3/uL (1.4-6.5); Neutrophils Percent Auto 63.7 % (43.0-75.0); Platelet Count 139 10^3/uL (150-450); Red Blood Count 4.14 10^6/uL (4.70-6.10); Red Cell Distribution Width 16.3 % (11.0-15.0); White Blood Count 3.4 10^3/uL (4.0-11.0)
[2023-05-08 12:50] LABS: Prothrombin Time 13.6 sec (9.0-11.6)
[2023-05-08 12:55] LABS: D Dimer 1.46 mg/L FEU (<=0.59)
[2023-05-08 12:56] LABS: Alanine Aminotransferase 14 U/L (16-63); Albumin Globulin Ratio 0.7; Albumin Level 2.6 g/dL (3.4-5.0); Alkaline Phosphatase 64 U/L (46-116); Anion Gap 12.8; Aspartate Amino Transferase 25 U/L (15-37); BUN Creatinine Ratio 9.7; Bilirubin Total 1.3 mg/dL (0.2-1.0); Carbon Dioxide 21.9 mmol/L (21.0-32.0); Chloride 109 mmol/L (98-107); Estimated GFR (African America 58 (>=60); Estimated GFR (Non-African Ame 48 (>=60); Globulin 3.7 g/dL; Glucose 106 mg/dL (74-106); Potassium 3.7 mmol/L (3.5-5.1); Sodium 140 mmol/L (136-145); Total Protein 6.3 g/dL (6.4-8.2)
[2023-05-08 13:03] LABS: Troponin I High Sensitivity 11.9 pg/mL (4.0-76.1)
[2023-05-08] MEDS: FUROSEMIDE 40 MG/4 ML VIAL IVP ×2 (13:18→21:41)
--- NOTE | 2023-05-08 14:00 | CA_ITS ---
Patient Name: CORKY DUENAS MR#: [id number] : 1950 Exam Date: 05/08/2023 Ordering Doctor: VERITO MELO . ECHOCARDIOGRAM REPORT PROCEDURE: CA ECHO LIMITED INDICATIONS: Acute on chronic congestive heart failure, COPD, AICD, DE with PTCA COMPARISON: None. DESCRIPTION: Limited ECHOCARDIOGRAM Real-time transthoracic echocardiography with 2D and M-mode performed. QUALITY: Technical quality was good. 66 , 152#, BSA 1.78 m2. Limited echocardiogram per physician order. LEFT VENTRICLE: Normal chamber size. Normal left ventricular wall thickness. The ventricular systolic function is severely reduced. There appears to be global hypokinesis with regional variability. LV EF: Severely reduced left ventricular ejection fraction, (15-20%). DIASTOLIC: ATRIAL SEPTUM: LEFT ATRIUM: Mild dilatation. RIGHT ATRIUM: Mild dilatation. RIGHT VENTRICLE: Normal chamber size. Right ventricular systolic function appears mildly reduced. Pacer wire present. TRICUSPID VALVE: Normal mobility and thickness. MITRAL VALVE: Moderately thickened with decreased mobility. AORTIC VALVE: Normal trileaflet appearance. Thickened aortic valve. Moderately diminished mobility. AORTIC ROOT: Normal diameter and appearance. PULMONIC VALVE: Normal thickness and mobility. PERICARDIUM: Trivial pericardial effusion. Left pleural effusion is seen IVC: IVC is dilated with no collapse. PLEURA: CONCLUSION: 1. The left ventricle is normal in size with severely reduced systolic function. There is global hypokinesis with regional variability. LVEF is estimated at 15 to 20%. 2. The right ventricle is normal in size and exhibits mildly reduced systolic function. 3. Mildly dilated atria. 4. Trivial pericardial effusion. 5. Left pleural effusion is seen. 6. Limited study performed with no Doppler interrogation as requested. Adult Echocardiography Procedure Report Left Ventricle LVEDD (3.7 - 5.6 cm): 5.49 cm LVESD (2.2 - 4.0 cm): 4.85 cm LVIVS thickness (0.6 - 1.2 cm): 0.87 cm LVPW thickness (0.5 - 1.0 cm): 0.87 cm LVOT Diameter 2.04 cm Left Atrium LA Volume Index (2D A2C): 36.61 ml/m2 Left Atrium Systolic Dimension: 3.34 cm Mitral Valve Right Ventricle Aorta AO Root Diam: 3.08 cm Aortic Valve Tricuspid Valve Pulmonic Valve Right Atrium Right Atrium Systolic Pressure: 59.09 ml, 59.09 ml Dictated by: Quintin Urena M.D. on 05/08/2023 at 16:32 Approved by: Quintin Urena M.D. on 05/08/2023 at 16:36
--- NOTE | 2023-05-08 14:07 | PM.HP ---
H&P: HPI History of Present Illness Chief complaint: CHEST PAIN/SHORTNESS OF BREATH Narrative: patient is a 72-year-old male with past medical history of chronic obstructive pulmonary disease, chronic combined systolic and diastolic heart failure with reduced ejection fraction of 20-25 percent, coronary artery disease, hypothyroidism, cardiac arrhythmia with automatic implantable cardiac defibrillator pacemaker, vertigo who presented to the emergency department today with increased shortness of breath and lower extremity swelling. He has been holding his home Lasix as he was told that his kidney function was deteriorating. He was also told to be pushing his fluids to help improve his kidney function. So given patient's significant reduced ejection fraction and increased intake of fluids,he is here with acute on chronic congestive heart failure[place] [address], creatinine of 1.45, normal troponin of 11.9. CMP and CBC were otherwise unremarkable. chest x-ray showed pulmonary vascular engorgement, mild pulmonary edema and bibasilar opacifications most likely pulmonary edema.Patient was given Lasix 40 mg IV ?1 in the emergency department. Patient was admitted to the hospitalist service for further plan of care. At the time of admission patient denies, shortness of breath but states his legs are swollen and sore, he has gained weight. He stopped his lasix and has been drinking alot of water per home health provider recommendations . He has had a full cardiac work up at [facility] ago and told there were no other interventions that can be done. EF is 10%. We also discussed severity of syptoms and moving forward, He would like to have a DNR-CCA code status. This was signed and copy placed in the chart. No other issues or complaints. Review of Systems ROS Narrative ROS: a complete review of systems were reviewed with patient and are positive as below or listed in History of Chief Complaint. General: no fever, chills, night sweats Head: no headache, trauma, visual changes, nausea or vomiting Skin: no reported rashes, itching or sores Eyes: no blurriness of vision Ears: no reported hearing loss, vertigo, earache, or tinnitus Throat: no sore throat, hoarseness, swelling of neck, or tongue pain Heart: no chest pain Lungs: shortness of breath or no cough GI: no diarrhea or vomiting/nausea Urinary: no urinary urgency, frequency or pain Neuro: no numbness or tingling HEM: no bleeding issues or bruising ENDO: thyroid problems Psych: no anxiety or depression PFSH PFSH Medical History Bacteremia due to Klebsiella pneumoniae ?R78.81 - Bacteremia (ICD-10) ?B96.1 - Klebsiella pneumoniae [k. pneumoniae] as the cause of diseases classified elsewhere (ICD-10) CKD (chronic kidney disease) stage 4, GFR 15-29 ml/min ?N18.4 - Chronic kidney disease, stage 4 (severe) (ICD-10) CAD (coronary artery disease) ?I25.10 - Atherosclerotic heart disease of [place] coronary artery without angina pectoris (ICD-10) COPD with acute exacerbation ?J44.1 - Chronic obstructive pulmonary disease with (acute) exacerbation (ICD-10) Polyposis of colon ?K63.5 - Polyp of colon (ICD-10) HTN (hypertension) ?I10 - Essential (primary) hypertension (ICD-10) COPD (chronic obstructive pulmonary disease) with emphysema ?J43.9 - Emphysema, unspecified (ICD-10) Hypothyroidism ?E03.9 - Hypothyroidism, unspecified (ICD-10) HFrEF (heart failure with reduced ejection fraction) ?I50.20 - Unspecified systolic (congestive) heart failure (ICD-10) Sepsis ?A41.9 - Sepsis, unspecified organism (ICD-10) Cardiac defibrillator in place ?Z95.810 - Presence of automatic (implantable) cardiac defibrillator (ICD-10) Myocardial infarction ?I21.9 - Acute myocardial infarction, unspecified (ICD-10) Right upper lobe pneumonia ?J18.9 - Pneumonia, unspecified organism (ICD-10) Vertigo ?R42 - Dizziness and giddiness (ICD-10) Pleural effusion ?J90 - Pleural effusion, not elsewhere classified (ICD-10) Congestive heart failure ?I50.9 - Heart failure, unspecified (ICD-10) Surgical History H/O cardiac catheterization ?Z98.890 - Other specified postprocedural states (ICD-10) History of colonoscopy ?Z98.890 - Other specified postprocedural states (ICD-10) History of esophagogastroduodenoscopy (EGD) ?Z98.890 - Other specified postprocedural states (ICD-10) History of implantable cardioverter-defibrillator (ICD) placement ?Z95.810 - Presence of automatic (implantable) cardiac defibrillator (ICD-10) History of cholecystectomy ?Z90.49 - Acquired absence of other specified parts of digestive tract (ICD-10) History of appendectomy ?Z90.49 - Acquired absence of other specified parts of digestive tract (ICD-10) Family History Mother Family history of CHF (congestive heart failure) Family history of diabetes mellitus Social History Within the past year, how often did you have a drink containing alcohol: never Score interpretation: A score less than 4 is consistent with normal alcohol consumption. Smoking status: Former smoker Previous occupational history: [employer] Known occupational exposures/hazards: No Highest level of school completed/degree received: high school graduate Are you now , , , , never or living with a partner: In a typical week, how many times do you talk on the telephone with family, friends, or neighbors: 3 or more times per week How often do you get together with friends or relatives: 3 or more times per week How often do you attend confucianism or buddhist services: never Do you belong to any clubs or organizations such as confucianism groups unions, fraternal or athletic groups, or school groups: no Total score: 1 Score interpretation: A score of less than or equal to 1 indicates the most socially isolated. Little interest or pleasure in doing things: not at all Feeling down, depressed, or hopeless: not at all Feel stressed/tense/nervous/anxious/difficulty sleeping: only a little Due to disability, difficulty making decisions: No Do you think of yourself as: straight/heterosexual Gender Identity: male Meds Home Medications and Allergies Home Medications Medication Instructions Recorded Confirmed Type levothyroxine 150 mcg tablet 150 mcg PO DAILY 12/01/22 05/08/23 History carvedilol 6.25 mg tablet 3.125 mg (1/2 x 6.25 mg) PO BID 30 03/18/23 05/08/23 Rx days #30 tabs meclizine 25 mg tablet 25 mg PO TID PRN dizziness 04/07/23 05/08/23 History mirtazapine 7.5 mg tablet 15 mg PO DAILY 04/07/23 05/08/23 History sertraline 25 mg tablet 25 mg PO DAILY 05/08/23 05/08/23 History Allergies Allergy/AdvReac Type Severity Reaction Status Date / Time No Known Drug Allergies Allergy Verified 04/07/23 15:48 Exam Narrative Exam Narrative: General: Patient is alert, and oriented to person, place and time with normal affect, proper hygiene Skin: no visible rashes, or ulcers Head: atraumatic, acephalic Eyes: PERRLA, no nystagmus present, conjunctiva clear, no scleral icterus Ears: normal gross auditory acuity Nose: symmetric, no discharge, no maxillary or frontal sinus tenderness Heart: Normal rate and rhythm, no murmurs/rubs/gallops Lungs: no audible wheezes, crackles all lung robison Abdomen: Normal audible bowel sounds, no distension, No palpable masses, no organomegaly, no rebound/guarding/ or rigidity Musculoskeletal: +2 pitting edema, swelling bilateral lower extremities to the knees Neuro: CN II-X grossly intact Constitutional Vital Signs, click to edit/add: Last Vital Signs Pulse 88 05/08/23 13:15 Resp 24 05/08/23 12:00 BP 109/84 05/08/23 13:18 Pulse Ox 97 05/08/23 13:15 O2 Del Method Room Air 05/08/23 12:13 Results Labs Labs: Short CBC 05/08/23 Range/Units 12:29 WBC 3.4 L (4.0-11.0) 10^3/uL Hgb 13.0 L (14.0-18.0) g/dL Hct 40.7 L (42.0-54.0) % Plt Count 139 L (150-450) 10^3/uL BMP 05/08/23 12:29 Sodium 140 Potassium 3.7 Chloride 109 H Carbon Dioxide 21.9 BUN 14.0 Creatinine 1.45 H Glucose 106 Calcium 8.0 L Liver Function 05/08/23 Range/Units 12:29 Total Bilirubin 1.3 H (0.2-1.0) mg/dL AST 25 (15-37) U/L ALT 14 L (16-63) U/L Alkaline Phosphatase 64 (46-116) U/L Albumin 2.6 L (3.4-5.0) g/dL Assessment and Plan Assessment and Plan (1) Acute exacerbation of CHF (congestive heart failure): Assessment and Plan: Will place on Lasix 40mg IV BID today, may need to decrease tomorrow to daily use. Monitor strict I&O's, 1500mL fluid restriction with 2 grams of sodium. Monitor electrolytes closely. Morning lipids, TSH. Limited echo today Qualifiers: Heart failure type: combined systolic and diastolic Qualified Code(s): I50.43 - Acute on chronic combined systolic (congestive) and diastolic (congestive) heart failure (2) HFrEF (heart failure with reduced ejection fraction): Assessment and Plan: significantly reduced EF of 10-15%, pacemaker, defibrillated, on tele (3) Pleural effusion: Assessment and Plan: Acute effusion from fluid overload, monitor pulse ox, diuresis (4) CKD (chronic kidney disease) stage 4, GFR 15-29 ml/min: Assessment and Plan: Cr 1.45 today, monitor daily. may benefit switch to bumex if lasix causes too much increase. (5) CAD (coronary artery disease): Assessment and Plan: recheck lipids on morning labs Qualifiers: Associated angina: without angina Coronary Disease-Associated Artery/Lesion type: [place] artery [place] vs. transplanted heart: [place] heart Qualified Code(s): I25.10 - Atherosclerotic heart disease of [place] coronary artery without angina pectoris (6) HTN (hypertension): Assessment and Plan: continue coreg, losartan Qualifiers: Hypertension type: primary hypertension Qualified Code(s): I10 - Essential (primary) hypertension (7) Hypothyroidism: Assessment and Plan: check TFTs in the morning Qualifiers: Hypothyroidism type: acquired Qualified Code(s): E03.9 - Hypothyroidism, unspecified (8) Cardiac defibrillator in place: Plan Patient is a DNRCCA Lovenox for DVT prophylaxis Patient is inpatient status and i expect to cross 2 midnights for as needed diuresis and hospital care.
[2023-05-08] MEDS: ENOXAPARIN SODIUM 40 MG/0.4 ML SYRINGE SUBQ (16:23)
[2023-05-08] MEDS: CARVEDILOL 3.125 MG TABLET PO (21:42)
[2023-05-08] MEDS: MIRTAZAPINE 15 MG TABLET PO (21:42)
[2023-05-08] MEDS: ACETAMINOPHEN 325 MG TABLET 650 MG PO (21:52)
[2023-05-09] VITALS (18 sets, daily range): BP systolic 91–101; BP diastolic 54–79; PULSE 60–89; RESP 18–22; TEMP 36.3–37; O2SAT 93–98
[2023-05-09] MEDS: ACETAMINOPHEN 325 MG TABLET 650 MG PO ×4 (03:13→22:43)
[2023-05-09] MEDS: LEVOTHYROXINE SODIUM 75 MCG TABLET 150 MCG PO (06:08)
[2023-05-09 06:10] LABS: Basophils Absolute Auto 0.1 10^3/uL (0.0-0.1); Basophils Percent Auto 1.9 % (0.2-2.0); Eosinophils Absolute Auto 0.2 10^3/uL (0.0-0.7); Eosinophils Percent Auto 5.7 % (0.9-7.0); Hematocrit 41.3 % (42.0-54.0); Immature Granulocytes Abs Auto 0.01 10^3/uL (0.00-0.03); Immature Granulocytes Pct Auto 0.3 % (0.0-0.5); Lymphocytes Percent Auto 27.8 % (20.5-60.0); Mean Corpuscular HGB Conc 31.5 g/dL (29.9-35.2); Mean Corpuscular Hemoglobin 31.6 pg (25.9-34.0); Mean Corpuscular Volume 100.2 fL (80.0-94.0); Monocytes Absolute Auto 0.3 10^3/uL (0.3-0.8); Monocytes Percent Auto 7.1 % (1.7-12.0); Neutrophils Absolute Auto 2.1 10^3/uL (1.4-6.5); Neutrophils Percent Auto 57.2 % (43.0-75.0); Platelet Count 169 10^3/uL (150-450); Red Blood Count 4.12 10^6/uL (4.70-6.10); Red Cell Distribution Width 16.4 % (11.0-15.0); White Blood Count 3.7 10^3/uL (4.0-11.0)
[2023-05-09 06:37] LABS: Anion Gap 11.6; Carbon Dioxide 27.7 mmol/L (21.0-32.0); Chloride 105 mmol/L (98-107); Glucose 72 mg/dL (74-106); Potassium 4.3 mmol/L (3.5-5.1); Sodium 140 mmol/L (136-145)
[2023-05-09 06:38] LABS: Aspartate Amino Transferase 53 U/L (15-37); BUN Creatinine Ratio 11.8; Bilirubin Total 1.4 mg/dL (0.2-1.0); Calcium 7.8 mg/dL (8.5-10.1); Estimated GFR (African America >60 (>=60); Estimated GFR (Non-African Ame 52 (>=60)
[2023-05-09 06:39] LABS: Alanine Aminotransferase 17 U/L (16-63); Albumin Globulin Ratio 0.6; Albumin Level 2.2 g/dL (3.4-5.0); Alkaline Phosphatase 55 U/L (46-116); Globulin 3.9 g/dL; Total Protein 6.1 g/dL (6.4-8.2); Triglycerides 61 mg/dL (<=150); VLDL CHOLESTEROL 12.2 mg/dL
[2023-05-09 06:40] LABS: Cholesterol 87 mg/dL (<=200); HDL Cholesterol 43 mg/dL (40-60); Thyroid Stimulating Hormone 66.508 uIU/mL (0.358-3.740)
[2023-05-09 08:41] LABS: Free T3 <0.50 pg/mL (2.18-3.98); T4 Thyroxine <0.50 ug/dL (4.50-12.10)
[2023-05-09] MEDS: FUROSEMIDE 40 MG/4 ML VIAL IVP (08:55)
[2023-05-09] MEDS: SERTRALINE HCL 50 MG TABLET 25 MG PO (08:55)
[2023-05-09] MEDS: CARVEDILOL 3.125 MG TABLET PO (08:55)
--- NOTE | 2023-05-09 09:48 | P.PN_ITS ---
Progress Note: Subjective Subjective Interval history: Patient with significant dyspnea with activity. Peripheral edema persisting but improved Exam Constitutional Vital Signs, click to edit/add: Last Vital Signs Temp 98.6 F 05/09/23 04:04 Pulse 70 05/09/23 08:00 Resp 18 05/09/23 07:41 BP 101/79 05/09/23 08:55 Pulse Ox 95 05/09/23 04:04 O2 Del Method Room Air 05/09/23 04:04 Documenting provider has reviewed patient's vital signs: yes Common normals: no apparent distress Chest Common normals: inspection of chest normal Respiratory Common normals: normal respiratory effort Auscultation: rales (Bases) Cardio Common normals: regular rate and regular rhythm Progress Note: Objective Labs Labs: Short CBC 05/08/23 05/09/23 Range/Units 12:29 04:55 WBC 3.4 L 3.7 L (4.0-11.0) 10^3/uL Hgb 13.0 L 13.0 L (14.0-18.0) g/dL Hct 40.7 L 41.3 L (42.0-54.0) % Plt Count 139 L 169 (150-450) 10^3/uL BMP 05/08/23 05/09/23 12:29 04:55 Sodium 140 140 Potassium 3.7 4.3 Chloride 109 H 105 Carbon Dioxide 21.9 27.7 BUN 14.0 16.0 Creatinine 1.45 H 1.36 H Glucose 106 72 L Calcium 8.0 L 7.8 L Liver Function 05/08/23 05/09/23 Range/Units 12:29 04:55 Total Bilirubin 1.3 H 1.4 H (0.2-1.0) mg/dL AST 25 53 H (15-37) U/L ALT 14 L 17 (16-63) U/L Alkaline Phosphatase 64 55 (46-116) U/L Albumin 2.6 L 2.2 L (3.4-5.0) g/dL Progress Note: A&P Assessment and Plan (1) Acute exacerbation of CHF (congestive heart failure): Assessment and Plan: Continue with diuresis, has had 3 L out Qualifiers: Heart failure type: combined systolic and diastolic Qualified Code(s): I50.43 - 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 transplanted heart: [place] heart Qualified Code(s): I25.10 - Atherosclerotic heart disease of [place] coronary artery without angina pectoris (6) HTN (hypertension): Assessment and Plan: Low this morning. Continue to monitor Qualifiers: Hypertension type: primary hypertension Qualified Code(s): I10 - Essential (primary) hypertension (7) Hypothyroidism: Assessment and Plan: Continue home dose of supplemental levothyroxine. Follow-up TSH results Qualifiers: Hypothyroidism type: acquired Qualified Code(s): E03.9 - Hypothyroidism, unspecified (8) Cardiac defibrillator in place: (9) Abdominal pain: Assessment and Plan: Reason unclear. No complaints today (10) Constipation: Assessment and Plan: Going to initiate bowel regiment. Going to make sure patient has detailed imaging studies (11) Congestive heart failure: Assessment and Plan: Appears to be euvolemic. Daily weight. Strict I's and O's. Plan Continue with current care as outlined above, possible discharge in a.m. depending on progression of symptoms with intensive medical treatment requiring 2 midnights and likely 3 patient will be placed from observation to inpatient status.
--- NOTE | 2023-05-09 09:55 | PT.DAILY ---
Physical Therapy Daily Note PT Daily Note/Assess Start: 05/08/23 15:49 Freq: Status: Active Protocol: Document 05/09/23 09:43 [id number] (Rec: 05/09/23 09:55 [id number]) Physical Therapy Daily Note/Assessment Time In/Time Out Time In 08:18 Time Out 08:35 Pain In Pain Level 5 Pain Out Pain Level 4 Subjective Subjective Patient reports pain to his feet at 5/10, willing to participate with PT. Verbalizes dizziness prior to functional movement. Therapeutic Exercise Time Therapeutic Exercise Minutes (minutes) 10 Therapeutic Exercise Units 1 Therapeutic Exercise Treatment Therapeutic Exercise Treatment Patient performed seated EOB ther ex to KHALIF LE for LAQ's, marching, hip ABD. Performed sit to stands with CGA +1 with RW x6 reps, utilizing KHALIF UE to push up off arm rests. Verbal cues to control descent to chair for safety. Therapeutic Activity Time Therapeutic Activity Minutes (minutes) 7 Therapeutic Activity Units 1 Therapeutic Activity Treatment Bed Mobility Ability Contact Guard Assist Chair Transfer Ability Contact Guard Assist Therapeutic Activity Comments Patient ambulated ~16 feet x 1 with RW with CGA with shortened step length, little to no toe off observed. Patient seated in chair at bedside, call plaza within reach. Total Physical Therapy Time Total Therapy Minutes 17 Total Physical Therapy Units 2 Summary Daily Note Summary Patient demonstrates improved bed mobility and increased ambulation distance, decreased gait quality secondary to ambulating primarily on heels and mid foot, little to no toe off observed during gait. No further C/O dizziness verbalized. Patient would benefit from HH upon discharge .
[2023-05-09] MEDS: ENOXAPARIN SODIUM 40 MG/0.4 ML SYRINGE SUBQ (16:07)
[2023-05-09] MEDS: ZINC OXIDE 30% CREAM 113.4 GM TUBE 1 APPLIC TOPICAL ×2 (17:08→22:44)
[2023-05-09] MEDS: ENSURE HP 237 ML LIQUID PO (22:43)
[2023-05-09] MEDS: MIRTAZAPINE 15 MG TABLET PO (22:43)
--- NOTE | 2023-05-09 23:05 | PC.NURSE ---
Patient BP 97/62. Lasix and Coreg held and [employer] notified
[2023-05-10] VITALS (21 sets, daily range): BP systolic 95–104; BP diastolic 60–75; PULSE 65–87; RESP 16–18; TEMP 36.3–37.1; O2SAT 92–95
[2023-05-10] MEDS: LEVOTHYROXINE SODIUM 75 MCG TABLET 150 MCG PO (05:38)
[2023-05-10] MEDS: ZINC OXIDE 30% CREAM 113.4 GM TUBE 1 APPLIC TOPICAL ×4 (05:38→21:01)
[2023-05-10 05:43] LABS: Basophils Percent Auto 1.1 % (0.2-2.0); Eosinophils Absolute Auto 0.2 10^3/uL (0.0-0.7); Eosinophils Percent Auto 5.9 % (0.9-7.0); Hematocrit 40.3 % (42.0-54.0); Hemoglobin 12.6 g/dL (14.0-18.0); Immature Granulocytes Abs Auto 0.01 10^3/uL (0.00-0.03); Immature Granulocytes Pct Auto 0.3 % (0.0-0.5); Lymphocytes Percent Auto 25.8 % (20.5-60.0); Mean Corpuscular HGB Conc 31.3 g/dL (29.9-35.2); Mean Corpuscular Hemoglobin 30.8 pg (25.9-34.0); Mean Corpuscular Volume 98.5 fL (80.0-94.0); Mean Platelet Volume 10.6 fL (9.5-13.5); Monocytes Absolute Auto 0.3 10^3/uL (0.3-0.8); Monocytes Percent Auto 6.7 % (1.7-12.0); Neutrophils Absolute Auto 2.2 10^3/uL (1.4-6.5); Neutrophils Percent Auto 60.2 % (43.0-75.0); Platelet Count 134 10^3/uL (150-450); Red Blood Count 4.09 10^6/uL (4.70-6.10); Red Cell Distribution Width 16.1 % (11.0-15.0); White Blood Count 3.7 10^3/uL (4.0-11.0)
[2023-05-10] MEDS: ACETAMINOPHEN 325 MG TABLET 650 MG PO (06:12)
[2023-05-10 06:18] LABS: Alanine Aminotransferase 11 U/L (16-63); Albumin Globulin Ratio 0.7; Albumin Level 2.2 g/dL (3.4-5.0); Alkaline Phosphatase 50 U/L (46-116); Aspartate Amino Transferase 23 U/L (15-37); BUN Creatinine Ratio 11.4; Bilirubin Total 1.1 mg/dL (0.2-1.0); Calcium 7.6 mg/dL (8.5-10.1); Carbon Dioxide 34.1 mmol/L (21.0-32.0); Chloride 104 mmol/L (98-107); Estimated GFR (African America 50 (>=60); Estimated GFR (Non-African Ame 41 (>=60); Globulin 3.3 g/dL; Glucose 93 mg/dL (74-106); Potassium 3.1 mmol/L (3.5-5.1); Sodium 142 mmol/L (136-145); Total Protein 5.5 g/dL (6.4-8.2)
[2023-05-10 06:23] LABS: Free T3 <0.50 pg/mL (2.18-3.98)
[2023-05-10 06:26] LABS: T4 Thyroxine <0.50 ug/dL (4.50-12.10)
[2023-05-10] MEDS: POTASSIUM CHLORIDE 40 MEQ in 0.9 % SODIUM CHLORIDE 250 ML 67.5 MEQ IV (09:09)
[2023-05-10] MEDS: ENSURE HP 237 ML LIQUID PO ×2 (09:37→21:02)
[2023-05-10] MEDS: SERTRALINE HCL 50 MG TABLET 25 MG PO (09:37)
--- NOTE | 2023-05-10 10:04 | PM.PN ---
Progress Note: Subjective Subjective Interval history: Patient is me with activity but feels it is improved. Little unsteady on his feet with BP low today. Exam Constitutional Vital Signs, click to edit/add: Last Vital Signs Temp 97.3 F L 05/10/23 08:03 Pulse 74 05/10/23 09:58 Resp 16 05/10/23 08:03 BP 96/65 05/10/23 09:02 Pulse Ox 94 L 05/10/23 08:03 O2 Del Method Room Air 05/10/23 08:03 Documenting provider has reviewed patient's vital signs: yes Common normals: no apparent distress Chest Common normals: inspection of chest normal Respiratory Common normals: normal respiratory effort Auscultation: rales (Bases) Cardio Common normals: regular rate and regular rhythm Extremity Common normals: abnormal to inspection (1+ edema-much improved per staff) Progress Note: Objective Labs Labs: Short CBC 05/10/23 Range/Units 05:10 WBC 3.7 L (4.0-11.0) 10^3/uL Hgb 12.6 L (14.0-18.0) g/dL Hct 40.3 L (42.0-54.0) % Plt Count 134 L (150-450) 10^3/uL BMP 05/10/23 05:15 Sodium 142 Potassium 3.1 L Chloride 104 Carbon Dioxide 34.1 H BUN 19.0 H Creatinine 1.66 H Glucose 93 Calcium 7.6 L Liver Function 05/10/23 Range/Units 05:15 Total Bilirubin 1.1 H (0.2-1.0) mg/dL AST 23 (15-37) U/L ALT 11 L (16-63) U/L Alkaline Phosphatase 50 (46-116) U/L Albumin 2.2 L (3.4-5.0) g/dL Progress Note: A&P Assessment and Plan (1) Acute exacerbation of CHF (congestive heart failure): Assessment and Plan: Unable to give any further diuresis secondary to hypotension. Significant diuresis and improvement in his edema is already been accomplished. Qualifiers: Heart failure type: combined systolic and diastolic Qualified Code(s): I50.43 - Acute on chronic combined systolic (congestive) and diastolic (congestive) heart failure (2) HFrEF (heart failure with reduced ejection fraction): Assessment and Plan: Last ejection fraction noted was 10%-benefit from maintaining low blood pressure. (3) Pleural effusion: Assessment and Plan: Pleural effusion secondary to the above, continue with diuresis (4) CKD (chronic kidney disease) stage 4, GFR 15-29 ml/min: Assessment and Plan: Stable, continue to monitor (5) CAD (coronary artery disease): Assessment and Plan: Chest pain-free Qualifiers: Associated angina: without angina Coronary Disease-Associated Artery/Lesion type: [place] artery [place] vs. transplanted heart: [place] heart Qualified Code(s): I25.10 - Atherosclerotic heart disease of [place] coronary artery without angina pectoris (6) HTN (hypertension): Assessment and Plan: Low this morning. Continue to monitor-needing to hold medications secondary to hypotension which is likely related to his diuresis. Qualifiers: Hypertension type: primary hypertension Qualified Code(s): I10 - Essential (primary) hypertension (7) Hypothyroidism: Assessment and Plan: Continue home dose of supplemental levothyroxine. Follow-up TSH results Qualifiers: Hypothyroidism type: acquired Qualified Code(s): E03.9 - Hypothyroidism, unspecified (8) Cardiac defibrillator in place: (9) Abdominal pain: Assessment and Plan: Denies currently (10) Constipation: Assessment and Plan: Improving (11) Congestive heart failure: Assessment and Plan: Significant edema is improved from admission. (12) Iron deficiency anemia: Assessment and Plan: Monitor daily-stable (13) Neutropenia: Assessment and Plan: Monitor daily Plan Patient needs to stay 1 additional day. Maintain inpatient status. Blood pressure too low to be able to be safely discharged home currently. Monitor medications, improve diet, possible discharge tomorrow
[2023-05-10 14:36] LABS: Anion Gap 8.9; BUN Creatinine Ratio 11.3; Calcium 7.7 mg/dL (8.5-10.1); Chloride 103 mmol/L (98-107); Estimated GFR (African America 49 (>=60); Estimated GFR (Non-African Ame 41 (>=60); Glucose 118 mg/dL (74-106); Potassium 3.9 mmol/L (3.5-5.1); Sodium 141 mmol/L (136-145)
[2023-05-10] MEDS: LIOTHYRONINE SODIUM 25 MCG TABLET PO (17:37)
[2023-05-10] MEDS: ENOXAPARIN SODIUM 40 MG/0.4 ML SYRINGE SUBQ (17:37)
[2023-05-10] MEDS: ACETAMINOPHEN 500 MG TABLET 1000 MG PO (17:38)
[2023-05-10 20:29] LABS: Anion Gap 9.5; BUN Creatinine Ratio 12.3; Calcium 7.7 mg/dL (8.5-10.1); Carbon Dioxide 31.3 mmol/L (21.0-32.0); Chloride 104 mmol/L (98-107); Estimated GFR (African America 51 (>=60); Estimated GFR (Non-African Ame 42 (>=60); Glucose 85 mg/dL (74-106); Potassium 3.8 mmol/L (3.5-5.1); Sodium 141 mmol/L (136-145)
[2023-05-10] MEDS: MIRTAZAPINE 15 MG TABLET PO (21:01)
[2023-05-11] VITALS (24 sets, daily range): BP systolic 94–106; BP diastolic 50–75; PULSE 70–94; RESP 16–18; TEMP 36.4–36.9; O2SAT 92–96
[2023-05-11] MEDS: ZINC OXIDE 30% CREAM 113.4 GM TUBE 1 APPLIC TOPICAL ×4 (05:07→21:16)
[2023-05-11 05:37] LABS: Basophils Absolute Auto 0.1 10^3/uL (0.0-0.1); Basophils Percent Auto 1.7 % (0.2-2.0); Eosinophils Absolute Auto 0.1 10^3/uL (0.0-0.7); Eosinophils Percent Auto 3.3 % (0.9-7.0); Hemoglobin 13.1 g/dL (14.0-18.0); Immature Granulocytes Abs Auto 0.01 10^3/uL (0.00-0.03); Immature Granulocytes Pct Auto 0.3 % (0.0-0.5); Lymphocytes Absolute Auto 1.1 10^3/uL (1.2-3.8); Lymphocytes Percent Auto 28.9 % (20.5-60.0); Mean Corpuscular Hemoglobin 30.8 pg (25.9-34.0); Mean Corpuscular Volume 96.5 fL (80.0-94.0); Mean Platelet Volume 10.8 fL (9.5-13.5); Monocytes Absolute Auto 0.3 10^3/uL (0.3-0.8); Neutrophils Absolute Auto 2.1 10^3/uL (1.4-6.5); Neutrophils Percent Auto 57.8 % (43.0-75.0); Platelet Count 148 10^3/uL (150-450); Red Blood Count 4.25 10^6/uL (4.70-6.10); Red Cell Distribution Width 16.2 % (11.0-15.0); White Blood Count 3.6 10^3/uL (4.0-11.0)
[2023-05-11 06:23] LABS: Alanine Aminotransferase 16 U/L (16-63); Albumin Globulin Ratio 0.7; Albumin Level 2.3 g/dL (3.4-5.0); Alkaline Phosphatase 54 U/L (46-116); Anion Gap 11.8; Aspartate Amino Transferase 29 U/L (15-37); BUN Creatinine Ratio 13.3; Bilirubin Total 1.1 mg/dL (0.2-1.0); Calcium 7.7 mg/dL (8.5-10.1); Chloride 105 mmol/L (98-107); Estimated GFR (African America >60 (>=60); Estimated GFR (Non-African Ame 52 (>=60); Globulin 3.3 g/dL; Glucose 71 mg/dL (74-106); Potassium 3.8 mmol/L (3.5-5.1); Sodium 141 mmol/L (136-145); Total Protein 5.6 g/dL (6.4-8.2)
--- OUTSIDE RECORDS SUMMARY | 2023-05-11 07:26 | XMS_ITS | CCD ---
Author Name Unknown Address [address] [place] [address] Organization [facility] Care Team Providers Care Banking Pin Adjuster Name Role Phone Unavailable Unavailable CRISTOBAL Albarran Primary Care Provider MD Cristobal Garcia Attending Provider [phone] Juan Manuel Albarran Unavailable Attjoce, Cristobal Unavailable aRndee Perdomo Unavailable Mera Batista Unavailable Lissa Spears Unavailable Unavailable Josef Rush Unavailable Unavailable CRISTOBAL Albarran Primary Care Provider MD Marc Rosario Emergency Provider [phone] CRISTOBAL Albarran Primary Care Provider MD Marc Rosario Emergency Provider MD Beau Goldberg Attending Provider Marc Rosario Admitting Unavailable Marc Rosario Attending Unavailable Juan Manuel Albarran Primary Care Unavailable Attizzani, Cristobal Admitting Unavailable Attizzani, Cristobal Attending Unavailable Juan Manuel Albarran Primary Care Unavailable Attizzani, Cristobal Admitting Unavailable Attizznaheed, Cristobal Attending Unavailable Juan Manuel Albarran Primary [...] Unavailable ATTIZZANI, CRISTOBAL Attending Unavailable [facility] Unavail able DO DIAZ CANCHOLA Referring Unava ilable Albarran II, [facility] Unavail able Renu, MsLayne Herr Attending Unavailable ATTIZZANI, CRISTOBAL Attending Unavailable Albarran II, [facility] Unavail able LYNNE, MD MERA GRAVES Attending Unavailabl e LYNNE, MD MERA GRAVES Referring Unavailabl e Albarran II, [facility] Unavail able ATTIZZANI, CRISTOBAL Attending Unavailable Albarran II, [facility] Unavail able ATTIZZANI, CRISTOBAL Attending Unavailable ATTIZZANI, CRISTOBAL Referring Unavailable Albarran II, [facility] Unavail able ATTIZZANI, CRISTOBAL Admitting Unavailable ATTIZZANI, CRISTOBAL Attending Unavailable Albarran II, [facility] Unavail able DO DIAZ CANCHOLA Referring [...] Jess vailable Lynne, Dr. Mera Graves Attending [facility] destiney Albarran II, Dr. Juan Manuel [facility] Jess vailable Lynne, Dr. Mera Graves Attending [facility] destiney Albarran II, Dr. Juan Manuel [facility] Jess vailable Lynne, Dr. Mera Graves [facility], Dr. Juan Manuel Murray [facility] Jess vailable Lynne, Dr. Mera Graves Attending [facility] destiney Albarran II, Dr. Juan Manuel [facility] Jess vailable Lynne, Dr. Mera Graves Attending [facility] le Deion II, Dr. Juan Manuel Murray [facility] Jess vailable Lynne, Dr. Mera Graves Attending [facility] JUAN MANUEL Stevenson Attending Unavailable DAYTON RUIZ [facility]ending [facility] Berg Referring JUAN MANUEL Roberts Attending JUAN MANUEL Roberts Attending Unavailable Allergies Allergy Classification Reported Allergen(s) Allergy Type Date of Onset Reaction(s) Facility (1 source) ALLERGIES NOT ON FILE; Translations: [ALLERGIES NOT ON FILE] Propensity to adverse reactions (disorder) [facility] Medications Current Medications Medication Drug Class(es) [...] 11-14-2021 Chronic Unclassified (2 sources) MITRAL REGURGITATION/CPT -29868 09-25-2021 Comment on above: MITRAL REGURGITATION /CPT -87652 Unclassified (1 source) 6M FU [facility] 08-13-2021 Comment on above: 6M FU [facility] Unclassified (1 source) CLINIC 08-15-2021 Comment on above: CLINIC Unclassified (1 source) VIRTUAL VISIT--1 MO FU-- --[email or web address] 09-24-2021 Comment on above: VIRTUAL VISIT--1 MO FU-- --[email or web address] Unclassified (1 source) VIRTUAL VISIT--1 WK FU-- --[email or web address] 09-24-2021 Comment on above: VIRTUAL VISIT--1 WK FU-- --[email or web address] Unclassified (1 source) Encounter for preprocedural laboratory [...] 01-10-2022 Episodic Other aftercare (2 sources) 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; Translations: [OTH GROUP HOME CURRENT DRUG THERAPY] Onset: 10-31-2021 Episodic Other [...] Remot sheryl 02-04-2023 Radiology Study observation (narrative) [facility] Work Phone: Cardiac Device Check - Remot eOrdered By: Mera Batista on 02-04-2023 [facility] Work Phone: XR FINGER MIN 2 [...] by: CARLEY ROBERTSON Date: 2022-08-15 18:02 Normal [facility] Blood Urea Nitrogenon 2021 Urea nitrogen [Mass/Vol] 5 mg/dL Low 12-27 [facility] Comment on above: Performed By: #### B , CREAT ####[facility] [id number] abdomen pelvis w conon CT abdomen pelvis w con [facility] Main [place] [address] [place] [address] CT Scan Report Signed Patient: Corky Duenas MR#: [id number] : 1950 Acct:[id number] Age/Sex: 71 / M ADM Date: 03/14/22 Loc: CT Room: Type: [facility] Attending Dr: Beau Goldberg MD Copies [...] Haywood Jr., DJacy03/14/2022 1:25 PM Dictation Location: [place] [address] Transcribed By: [facility] 03/14/22 1325 Dictated By: Ethan Haywood Jr, DO 03/14/22 1320 Signed By: 03/14/22 1325 [facility] Creatinineon 03-14-2022 Creatinine [Mass/Vol] 1.04 mg/dL Normal 0.64-1.27 [facility] Comment on above: Performed By: #### B XI, CREAT ####[address] Estimated GFR ( Brenda > 60 [facility] Comment on above: Result Comment: GFR estimated reference range: According to KDOQI guidelines, <60 ml/min/1.73m2 is sufficient to diagnose a patient with chronic kidney disease. PERFORMED BY: [facility] [address] [place] [address] PATHOLOGIST STOREHOUSE CLERK BAY THRASHER M.D. Performed By: #### B XI, CREAT ####[address] Estimated GFR (Non- Am > 60 [facility] Comment on above: Performed By: #### B XI, CREAT ####[address] Creatinine and Glomerular fi ltration rate.predicted panel (S/P/Bld)Ordered By: Beau Goldberg on 03-14-2022 Creatinine [Mass/Vol] 1.04 mg/dL 0.64-1.27 [facility] Estimated glomerular filtrat ion rate (GFR) non- AmericanOrdered By: Beau Goldberg on 03-14-2022 GFR/1.73 sq M.predicted among non-blacks MDRD (S/P/Bld) [Vol rate/Area] > 60 mL/Min [facility] No Panel InformationOrdered By: Beau Yusuf on 03-14-2022 Estimated GFR () > 60 mL/Min [facility] Comment on above: GFR estimated refere nce range: According to KDOQI guidelines, <60 ml/min/1.73m2 is sufficient to diagnose a patient with chronic kidney disease. Pharmacy Creatinine Clearance (Chem N/A [facility] Serum or plasma urea nitroge n measurement (mass/volume)Ordered By: Beau Goldberg on 03-14-2022 Urea nitrogen [Mass/Vol] 5 mg/dL 12-27 [facility] COVID-19 Antigenon 2 COVID-19 Antigen Healthcare Worker?: [...] developed and its performance characteristic determined by [employer] and validated at [facility]. This test has not been FDA cleared [...] for SARS Antigen by JOSEPH PERFORMED BY: [place] [id number] PATHOLOGIST STOREHOUSE CLERK BAY THRASHER M.D. Normal [facility] Comment on above: Performed By: #### C OVID-19 VALENCIA, SOFIANEG #### [address] COVID-19 SOFIAOrdered By: Johnathan Goldberg on 02-20-2022 SARS-CoV+SARS-CoV-2 (COVID-19) Ag IA.rapid Ql (Resp) Negative Negative [facility] Comment on above: This is a duplicate [place] SARS Antigen (JOSEPH) result to be used for statistical tracking purpose only. No Panel InformationOrdered By: Beau Goldberg on 02-20-2022 SARS Antigen (LFIA) [facility] Valencia Ag Negativeon 02-21-20 22 [place] Ag Negative Negative Normal Negative [facility] Comment on above: Result Comment: This is a duplicate [place] SARS Antigen (JOSEPH) result to be used for statistical tracking purpose only. PERFORMED BY: [place] [address] PATHOLOGIST STOREHOUSE CLERK BAY THRASHER M.D. Performed By: #### C OVID-19 VALENCIA, SOFIANEG #### [place] [id number] [facility] FREE T3on 02-11-2022 FREE T3 2.24 pg/mlL Normal 2.18-3.[address] [facility] Comment on above: Performed By: #### F T3, TSH #### [facility] [address] [place] [address] Dr. Apolonia Norwood FREE T4on 02-11-2022 Free T4 [Mass/Vol] 0.68 ng/dL Critically low 0.76-1.46 [facility] Comment on above: Performed By: #### F T4 #### [facility] [address] [place] [address] [address] Apolonia Norwood TSHon 02-11-2022 TSH 17.836 uIU/mL Critically high 0.358-3.740 [facility] Comment on above: Performed By: #### F T3, TSH #### [facility] [address] [place] [address] [address] Apolonia Norwood Albumin [Mass/volume] in Ser um or PlasmaOrdered By: Marc Rosario on 01-15-2022 Albumin [Mass/Vol] 3.5 g/dL 3.2-5.5 [facility] Amylaseon 01-15-2022 Amylase [Catalytic activity/Vol] 123 U/L High 28-100 [facility] Comment on above: Performed By: #### L IPASE, CBC, CMP, HS TROP, KILEY #### [facility] [address] Basophils Auto (Bld) [#/Vol] Ordered By: Marc Rosario on 01-15-2022 Basophils (Bld) [#/Vol] 0.1 10*3/uL 0.0-0.2 [facility] Basophils/100 WBC Auto (Bld) Ordered By: Marc Rosario on 01-15-2022 Basophils/100 WBC (Bld) 0.9 % . [facility] Bilirubin Test strip Ql (U)O rdered By: Marc Rosario on 01-15-2022 Bilirubin Ql (U) Negative Negative [facility] CT abdomen pelvis wo conon 1 CT abdomen pelvis wo con [facility] Main [place] [address] [place] [address] CT Scan Report Signed Patient: Corky Duenas MR#: [id number] : 1950 Acct:[id number] Age/Sex: 71 / M ADM Date: 01/15/22 Loc: ER Room: Type: [facility] Attending Dr: Copies to: Marc Rosario [...] Ludy Feldman M.D.01/15/2022 6:05 PM Dictation Location: [place] [address] Transcribed By: [facility] 01/15/221804 Dictated By: Ludy Feldman MD 01/15/22 703 Signed By: 01/15/221804 Normal [facility] Color Auto (U)Ordered By: Angie Rosario on 01-15-2022 Color (U) Yellow Yellow [facility] Complete Blood Count Auto Di ffon 01-15-2022 Basophils (Bld) [#/Vol] 0.1 10*3/uL Normal 0.0-0.2 [facility] Comment on above: Result Comment: PERF ORMED BY: [place] [address] PATHOLOGIST STOREHOUSE CLERK BAY THRASHER M.D. Performed By: #### L IPASE, CBC, CMP, HS TROP, KILEY #### [address] Basophils/100 WBC (Bld) 0.9 % Normal . [facility] Comment on above: Performed By: #### L IPASE, CBC, CMP, HS TROP, KILEY #### [address] Eosinophils (Bld) [#/Vol] 0.2 10*3/uL Normal 0.0-0.45 [facility] Comment on above: Performed By: #### L IPASE, CBC, CMP, HS TROP, KILEY #### [address] Eosinophils/100 WBC (Bld) 3.0 % Normal . [facility] Comment on above: Performed By: #### L IPASE, CBC, CMP, HS TROP, KILEY #### [address] Erythrocyte distribution width (RBC) [Ratio] 14.0 % Normal 12.0-14.8 [facility] Comment on above: Performed By: #### L IPASE, CBC, CMP, HS TROP, KILEY #### [address] Hematocrit (Bld) [Volume fraction] 42.2 % Normal 38.8-50.0 [facility] Comment on above: Performed By: #### L IPASE, CBC, CMP, HS TROP, KILEY #### [address] [place] [address] [place] Hemoglobin (Bld) [Mass/Vol] 14.2 g/dL Normal 13.0-17.0 [facility] Comment on above: Performed By: #### L IPASE, CBC, CMP, HS TROP, KILEY #### [address] Lymphocytes (Bld) [#/Vol] 1.4 10*3/uL Normal 1.00-4.8 [facility] Comment on above: Performed By: #### L IPASE, CBC, CMP, HS TROP, KILEY #### [address] Lymphocytes/100 WBC (Bld) 22.1 % Normal . [facility] Comment on above: Performed By: #### L IPASE, CBC, CMP, HS TROP, KILEY #### [address] MCH (RBC) [Entitic mass] 33.2 pg Normal 27.5-35.2 [facility] Comment on above: Performed By: #### L IPASE, CBC, CMP, HS TROP, KILEY #### [address] MCV (RBC) [Entitic vol] 99.0 fL Normal 83.5-101 [facility] Comment on above: Performed By: #### L IPASE, CBC, CMP, HS TROP, KILEY #### [address] Mean Corpuscular HGB Conc 33.5 g/dL Normal 32.5-35.6 [facility] Comment on above: Performed By: #### L IPASE, CBC, CMP, HS TROP, KILEY #### [address] Monocytes (Bld) [#/Vol] 0.5 10*3/uL Normal 0.0-0.8 [facility] Comment on above: Performed By: #### L IPASE, CBC, CMP, HS TROP, KILEY #### [address] Monocytes/100 WBC (Bld) 7.1 % Normal . [facility] Comment on above: Performed By: #### L IPASE, CBC, CMP, HS TROP, KILEY #### [address] Neutrophils (Bld) [#/Vol] 4.3 10*3/uL Normal 1.8-7.7 [facility] Comment on above: Performed By: #### L IPASE, CBC, CMP, HS TROP, KILEY #### [address] Neutrophils/100 WBC (Bld) 66.9 % Normal . [facility] Comment on above: Performed By: #### L IPASE, CBC, CMP, HS TROP, KILEY #### [address] Nucleated RBC/100 WBC (Bld) [Ratio] 0.1 % Normal 0-0.5 [facility] Comment on above: Performed By: #### L IPASE, CBC, CMP, HS TROP, KILEY #### [address] Platelet mean volume (Bld) [Entitic vol] 8.4 fL Normal 6.6-10.1 [facility] Comment on above: Performed By: #### L IPASE, CBC, CMP, HS TROP, KILEY #### [place] [address] [place] Platelets (Bld) [#/Vol] 263 10*3/uL Normal 150-450 [facility] Comment on above: Performed By: #### L IPASE, CBC, CMP, HS TROP, KILEY #### [place] [address] [place] RBC (Bld) [#/Vol] 4.26 10*6/uL Normal 3.90-5.60 [facility] Comment on above: Performed By: #### L IPASE, CBC, CMP, HS TROP, KILEY #### [place] [address] [place] WBC (Bld) [#/Vol] 6.4 10*3/uL Normal 4.5-11.0 [facility] Comment on above: Performed By: #### L IPASE, CBC, CMP, HS TROP, KILEY #### [facility] [address] Comprehensive Metabolic Pane isis 01-15-2022 Albumin [Mass/Vol] 3.5 g/dL Normal 3.2-5.5 [facility] Comment on above: Performed By: #### L IPASE, CBC, CMP, HS TROP, KILEY #### [address] Albumin/Globulin [Mass ratio] 1.0 {ratio} Normal [facility] Comment on above: Performed By: #### L IPASE, CBC, CMP, HS TROP, KILEY #### [address] ALP [Catalytic activity/Vol] 58 U/L Normal 32-92 [facility] Comment on above: Performed By: #### L IPASE, CBC, CMP, HS TROP, KILEY #### [address] ALT [Catalytic activity/Vol] 16 U/L Normal 10-60 [facility] Comment on above: Performed By: #### L IPASE, CBC, CMP, HS TROP, KILEY #### [address] Anion gap [Moles/Vol] 15.2 mmol/L High 6.0-15.0 [facility] Comment on above: Performed By: #### L IPASE, CBC, CMP, HS TROP, KILEY #### [address] AST [Catalytic activity/Vol] 22 U/L Normal 10-42 [facility] Comment on above: Performed By: #### L IPASE, CBC, CMP, HS TROP, KILEY #### [address] Bilirubin [Mass/Vol] 0.9 mg/dL Normal 0.3-1.2 [facility] Comment on above: Performed By: #### L IPASE, CBC, CMP, HS TROP, KILEY #### [facility] [address] Calcium [Mass/Vol] 8.9 mg/dL Normal 8.2-10.2 [facility] Comment on above: Performed By: #### L IPASE, CBC, CMP, HS TROP, KILEY #### [facility] [address] Chloride [Moles/Vol] 103 mmol/L Normal 95-114 [facility] Comment on above: Performed By: #### L IPASE, CBC, CMP, HS TROP, KILEY #### [address] CO2 [Moles/Vol] 24.4 mmol/L Normal 22.0-30.0 [facility] Comment on above: Performed By: #### L IPASE, CBC, CMP, HS TROP, KILEY #### [address] Creatinine [Mass/Vol] 1.12 mg/dL Normal 0.64-1.27 [facility] Comment on above: Performed By: #### L IPASE, CBC, CMP, HS TROP, KILEY #### [address] Creatinine Clr Calc Pharmacy 54.59 [facility] Comment on above: Performed By: #### L IPASE, CBC, CMP, HS TROP, KILEY #### [address] Estimated GFR ( Brenda > 60 [facility] Comment on above: Result Comment: GFR estimated reference range: According to KDOQI guidelines, <60 ml/min/1.73m2 is sufficient to diagnose a patient with chronic kidney disease. Performed By: #### L IPASE, CBC, CMP, HS TROP, KILEY #### [address] Estimated GFR (Non- Am > 60 [facility] Comment on above: Performed By: #### L IPASE, CBC, CMP, HS TROP, KILEY #### [facility] [address] [place] [address] [place] Globulin (S) [Mass/Vol] 3.4 g/dL Normal [facility] Comment on above: Performed By: #### L IPASE, CBC, CMP, HS TROP, KILEY #### [facility] [address] [place] [address] [place] Glucose [Mass/Vol] 86 mg/dL Normal 70-100 [facility] Comment on above: Result Comment: [facility] Glucose Reference Range is dependent on time and content of last meal. Glucose of more than 200 mg/dL in a nonstressed, ambulatory subject supports the diagnosis of Diabetes Mellitus. ADA recommended reference range Performed By: #### L IPASE, CBC, CMP, HS TROP, KILEY #### [facility] [address] Potassium [Moles/Vol] 3.6 mmol/L Normal 3.5-5.1 [facility] Comment on above: Performed By: #### L IPASE, CBC, CMP, HS TROP, KILEY #### [facility] [address] [place] [address] [place] Protein [Mass/Vol] 6.9 g/dL Normal 6.1-7.9 [facility] Comment on above: Performed By: #### L IPASE, CBC, CMP, HS TROP, KILEY #### [facility] [address] [place] [address] [place] Sodium [Moles/Vol] 139 mmol/L Normal 136-146 [facility] Comment on above: Performed By: #### L IPASE, CBC, CMP, HS TROP, KILEY #### [facility] [address] [place] [address] [place] Urea nitrogen [Mass/Vol] 11 mg/dL Normal 9-23 [facility] Comment on above: Performed By: #### L IPASE, CBC, CMP, HS TROP, KILEY #### [facility] [address] [place] [address] [place] Creatinine and Glomerular fi ltration rate.predicted panel (S/P/Bld)Ordered By: Marc Rosario on 01-15-2022 Creatinine [Mass/Vol] 1.12 mg/dL 0.64-1.27 [facility] Eosinophils Auto (Bld) [#/Vo l]Ordered By: Marc Rosario on 01-15-2022 Eosinophils (Bld) [#/Vol] 0.2 10*3/uL 0.0-0.45 [facility] Eosinophils/100 WBC Auto (Bl d)Ordered By: Marc Rosario on 01-15-2022 Eosinophils/100 WBC (Bld) 3.0 % . [facility] Erythrocyte distribution wid th Auto (RBC) [Ratio]Ordered By: Marc Rosario on 01-15-2022 Erythrocyte distribution width (RBC) [Ratio] 14.0 % 12.0-14.8 [facility] Estimated glomerular filtrat ion rate (GFR) non- AmericanOrdered By: Marc Rosario on 01-15-2022 GFR/1.73 sq M.predicted among non-blacks MDRD (S/P/Bld) [Vol rate/Area] > 60 mL/Min [facility] Globulin Calc (S) [Mass/Vol] Ordered By: Marc Rosario on 01-15-2022 Globulin (S) [Mass/Vol] 3.4 g/dL [facility] Hematocrit Auto (Bld) [Volum e fraction]Ordered By: Marc Rosario on 01-15-2022 Hematocrit (Bld) [Volume fraction] 42.2 % 38.8-50.0 [facility] Hemoglobin [Mass/volume] in BloodOrdered By: Marc Rosario on 01-15-2022 Hemoglobin (Bld) [Mass/Vol] 14.2 g/dL 13.0-17.0 [facility] Ketones Auto test strip (U) [Mass/Vol]Ordered By: Marc Rosario on 01-15-2022 Ketones (U) [Mass/Vol] Negative Negative [facility] - Chemistry and C hemistry - challengeOrdered By: Marc Rosario on 01-15-2022 Lipase [Catalytic activity/Vol] 32.0 U/L 22-51 [facility] - Hematology and Cell countsOrdered By: Marc Rosario on 01-15-2022 Nucleated RBC/100 WBC (Bld) [Ratio] 0.1 % 0-0.5 [facility] Leukocytes [#/volume] in Blo od by Automated countOrdered By: Marc Rosario on 01-15-2022 WBC (Bld) [#/Vol] 6.4 10*3/uL 4.5-11.0 [facility] Lipaseon 01-15-2022 Lipase [Catalytic activity/Vol] 32.0 U/L Normal 22-51 [facility] Comment on above: Result Comment: PERF ORMED BY: [facility] [address] [place] [address] PATHOLOGIST STOREHOUSE CLERK BAY THRASHER M.D. Performed By: #### L IPASE, CBC, CMP, HS TROP, KILEY #### [facility] [address] Lymphocytes Auto (Bld) [#/Vo l]Ordered By: Marc Rosario on 01-15-2022 Lymphocytes (Bld) [#/Vol] 1.4 10*3/uL 1.00-4.8 [facility] Lymphocytes/100 WBC Auto (Bl d)Ordered By: Marc Rosario on 01-15-2022 Lymphocytes/100 WBC (Bld) 22.1 % . [facility] MCH Auto (RBC) [Entitic mass ]Ordered By: Marc Rosario on 01-15-2022 MCH (RBC) [Entitic mass] 33.2 pg 27.5-35.2 [facility] MCHC Auto (RBC) [Mass/Vol]Or dered By: Marc Rosario on 01-15-2022 MCHC (RBC) [Mass/Vol] 33.5 g/dL 32.5-35.6 [facility] MCV Auto (RBC) [Entitic vol] Ordered By: Marc Rosario on 01-15-2022 MCV (RBC) [Entitic vol] 99.0 fL 83.5-101 [facility] Monocytes Auto (Bld) [#/Vol] Ordered By: Marc Rosario on 01-15-2022 Monocytes (Bld) [#/Vol] 0.5 10*3/uL 0.0-0.8 [facility] Monocytes/100 WBC Auto (Bld) Ordered By: Marc Rosario on 01-15-2022 Monocytes/100 WBC (Bld) 7.1 % . [facility] Neutrophils Auto (Bld) [#/Vo l]Ordered By: Marc Rosario on 01-15-2022 Neutrophils (Bld) [#/Vol] 4.3 10*3/uL 1.8-7.7 [facility] Neutrophils/100 WBC Auto (Bl d)Ordered By: Marc Rosario on 01-15-2022 Neutrophils/100 WBC (Bld) 66.9 % . [facility] Nitrite Test strip Ql (U)Ord ered By: Marc Rosario on 01-15-2022 Nitrite Ql (U) Negative Negative [facility] No Panel InformationOrdered By: Marc Rosario on 01-15-2022 Estimated GFR () > 60 mL/Min [facility] Comment on above: GFR estimated refere nce range: According to KDOQI guidelines, <60 ml/min/1.73m2 is sufficient to diagnose a patient with chronic kidney disease. Pharmacy Creatinine Clearance (Chem 54.59 [facility] Platelet mean volume Auto (B ld) [Entitic vol]Ordered By: Marc Rosario on 01-15-2022 Platelet mean volume (Bld) [Entitic vol] 8.4 fL 6.6-10.1 [facility] Platelets Auto (Bld) [#/Vol] Ordered By: Marc Rosario on 01-15-2022 Platelets (Bld) [#/Vol] 263 10*3/uL 150-450 [facility] Protein Auto test strip (U) [Mass/Vol]Ordered By: Marc Rosario on 01-15-2022 Protein (U) [Mass/Vol] Negative Negative [facility] Protein [Mass/volume] in Ser um or PlasmaOrdered By: Marc Rosario on 01-15-2022 Protein [Mass/Vol] 6.9 g/dL 6.1-7.9 [facility] RBC Auto (Bld) [#/Vol]Ordere d By: Marc Rosario on 01-15-2022 RBC (Bld) [#/Vol] 4.26 10*6/uL 3.90-5.60 [facility] Serum or plasma alanine bermudez otransferase measurement without P-5'-P (enzymatic activiOrdered By: Marc Rosario on 01-15-2022 ALT No additional P-5'-P [Catalytic activity/Vol] 16 U/L 1060 [facility] Serum or plasma albumin/glob ulin mass ratioOrdered By: Marc Rosario on 01-15-2022 Albumin/Globulin [Mass ratio] 1.0 {ratio} [facility] Serum or plasma alkaline koffi sphatase measurement (enzymatic activity/volume)Ordered By: Marc Rosario on 01-15-2022 ALP [Catalytic activity/Vol] 58 U/L 32-92 [facility] Serum or plasma amylase perla urement (enzymatic activity/volume)Ordered By: Marc Rosario on 01-15-2022 Amylase [Catalytic activity/Vol] 123 U/L 28-100 [facility] Serum or plasma anion gap de terminationOrdered By: Marc Rosario on 01-15-2022 Anion gap [Moles/Vol] 15.2 mmol/L 6.0-15.0 [facility] Serum or plasma aspartate am inotransferase measurement (enzymatic activity/volume)Ordered By: Marc Rosario on 01-15-2022 AST [Catalytic activity/Vol] 22 U/L 10-42 [facility] Serum or plasma calcium perla urement (mass/volume)Ordered By: Marc Rosario on 01-15-2022 Calcium [Mass/Vol] 8.9 mg/dL 8.2-10.2 [facility] Serum or plasma chloride carlie surement (moles/volume)Ordered By: Marc Rosario on 01-15-2022 Chloride [Moles/Vol] 103 mmol/L 95-114 [facility] Serum or plasma glucose perla urement (mass/volume)Ordered By: Marc Rosario on 01-15-2022 Glucose [Mass/Vol] 86 mg/dL 70-100 [facility] Comment on above: ADA recommended refe rence rangeRandom Glucose Reference Range is dependent on time and content of last meal. Glucose of more than 200 mg/dL in a nonstressed, ambulatory subject supports the diagnosis of Diabetes Mellitus. Serum or plasma potassium me asurement (moles/volume)Ordered By: Marc Rosario on 01-15-2022 Potassium [Moles/Vol] 3.6 mmol/L 3.5-5.1 [facility] Serum or plasma sodium measu rement (moles/volume)Ordered By: Marc Rosario on 01-15-2022 Sodium [Moles/Vol] 139 mmol/L 136-146 [facility] Serum or plasma total biliru bin measurement (mass/volume)Ordered By: Marc Rosario on 01-15-2022 Bilirubin [Mass/Vol] 0.9 mg/dL 0.3-1.2 [facility] Serum or plasma total carbon dioxide measurement (moles/volume)Ordered By: Marc Rosario on 01-15-2022 CO2 [Moles/Vol] 24.4 mmol/L 22.0-30.0 [facility] Serum or plasma urea nitroge n measurement (mass/volume)Ordered By: Marc Rosario on 01-15-2022 Urea nitrogen [Mass/Vol] 11 mg/dL 9- [facility] Specific gravity Auto test s trip (U) [Rel density]Ordered By: Marc Rosario on 01-15-2022 Specific gravity (U) [Rel density] 1.007 1.001-1.030 [facility] Troponin I High Sensitivityo n 01-15-2022 Troponin I High Sensitivity 10 pg/mL Normal 0-20 [facility] Comment on above: Result Comment: PERF ORMED BY: [facility] [address] [place] [address] PATHOLOGIST STOREHOUSE CLERK BAY THRASHER M.D. Performed By: #### L IPASE, CBC, CMP, HS TROP, KILEY #### [facility] [address] Troponin I.cardiac [Mass/vol ume] in Serum or Plasma by High sensitivity methodOrdered By: Marc Rosario on 01-15-2022 Troponin I.cardiac High sensitivity method [Mass/Vol] 10 pg/mL 0-20 [facility] Urinalysison 01-15-2022 Appearance (U) Clear Normal Clear [facility] Comment on above: Order Comment: Name Collection Type:: Clean-Voided Midstream Performed By: #### U A ####[facility] [id number] Bilirubin,Urine Negative Normal Negative [facility] Comment on above: Order Comment: Name Collection Type:: Clean-Voided Midstream Performed By: #### U A ####[address] [address] [facility] Color (U) Yellow Normal Yellow [facility] Comment on above: Order Comment: Name Collection Type:: Clean-Voided Midstream Performed By: #### U A ####[address] [address] [facility] Glucose Ql (U) Normal Normal Normal [facility] Comment on above: Order Comment: Name Collection Type:: Clean-Voided Midstream Performed By: #### U A ####[address] [address] [facility] Ketones Ql (U) Negative Normal Negative [facility] Comment on above: Order Comment: Name Collection Type:: Clean-Voided Midstream Performed By: #### U A ####[place] [id number] [facility] Leukocyte esterase Test strip Ql (U) Negative Normal Negative [facility] Comment on above: Order Comment: Name Collection Type:: Clean-Voided Midstream Performed By: #### U A ####[address] [address] [facility] Nitrite,Urine Negative Normal Negative [facility] Comment on above: Order Comment: Name Collection Type:: Clean-Voided Midstream Performed By: #### U A ####[address] [address] [facility] Occult Blood,Urine Negative Normal Negative [facility] Comment on above: Order Comment: Name Collection Type:: Clean-Voided Midstream Result Comment: PERF ORMED BY: [facility] [address] [place] [id number] PATHOLOGIST STOREHOUSE CLERK BAY THRASHER M.D. Performed By: #### U A ####[address] [address] [facility] pH (U) 7.5 [pH] Normal 5.0-9.0 [facility] Comment on above: Order Comment: Name Collection Type:: Clean-Voided Midstream Performed By: #### U A ####[facility] [place] [address] [facility] Protein,Urine Negative Normal Negative [facility] Comment on above: Order Comment: Name Collection Type:: Clean-Voided Midstream Performed By: #### U A ####[address] [address] [facility] Specificy [place],Urine 1.007 Normal 1.001-1.030 [facility] Comment on above: Order Comment: Name Collection Type:: Clean-Voided Midstream Performed By: #### U A ####[place] [id number] [facility] Urobilinogen,Urine Normal Normal Normal [facility] Comment on above: Order Comment: Name Collection Type:: Clean-Voided Midstream Performed By: #### U A ####[place] [id number] [facility] Urine clarity by refractomet ry automatedOrdered By: Marc Rosario on 01-15-2022 Clarity Refractometry automated (U) Clear Clear [facility] Urine glucose measurement by automated test strip (mass/volume)Ordered By: Marc Rosario on 01-15-2022 Glucose Auto test strip (U) [Mass/Vol] Normal mg/dL Normal [facility] Urine hemoglobin detection b y automated test stripOrdered By: Marc Rosario on 01-15-2022 Hemoglobin Auto test strip Ql (U) Negative Negative [facility] Urine leukocyte esterase det ection by automated test stripOrdered By: Marc Rosario on 01-15-2022 Leukocyte esterase Auto test strip Ql (U) Negative Negative [facility] Urobilinogen Auto test strip (U) [Mass/Vol]Ordered By: Marc Rosario on 01-15-2022 Urobilinogen (U) [Mass/Vol] Normal mg/dL Normal [facility] pH Auto test strip (U)Ordere d By: Marc Rosario on 01-15-2022 pH (U) 7.5 [pH] 5.0-9.0 [facility] CBC AUTO DIFFon 01-07-2022 BASO # 0.1 103/ul Normal 0.0-0.1 [facility] Comment on above: Performed By: #### F T4 #### [facility] [address] [place] [address] Dr. Apolonia Norwood Basophils/100 WBC (Bld) 0.9 % Normal 0.2-2.0 [facility] Comment on above: Performed By: #### F T4 #### [facility] [address] [place] [address] Dr. Apolonia Norwood EO # 0.3 103/ul Normal 0.0-0.7 [facility] Comment on above: Performed By: #### F T4 #### [facility] [address] [place] [address] Dr. Apolonia Norwood Eosinophils/100 WBC (Bld) 5.1 % Normal 0.9-7.0 [facility] Comment on above: Performed By: #### F T4 #### [facility] [address] [place] [address] Dr. Apolonia Norwood Erythrocyte distribution width (RBC) [Ratio] 13.8 % Normal 11.0-15.0 [facility] Comment on above: Performed By: #### F T4 #### [facility] [address] [place] [address] Dr. Apolonia Norwood Hematocrit (Bld) [Volume fraction] 39.2 % Critically low 42.0-54.0 [facility] Comment on above: Performed By: #### F T4 #### [facility] [address] [place] [address] Dr. Apolonia Norwood Hemoglobin (Bld) [Mass/Vol] 12.8 g/dL Critically low 14.0-18.0 [facility] Comment on above: Performed By: #### F T4 #### [facility] [address] [place] [address] Dr. Apolonia Norwood IG # 0.02 10e3/ul Normal 0.00-0.03 [facility] Comment on above: Performed By: #### F T4 #### [facility] [address] [place] [address] Dr. Apolonia Norwood IG % 0.4 % Normal 0.0-0.5 [facility] Comment on above: Performed By: #### F T4 #### [facility] [address] [place] [address] Dr. Apolonia Norwood LYMPH # 1.3 103/ul Normal 1.2-3.8 [facility] Comment on above: Performed By: #### F T4 #### [facility] [address] [place] [address] Dr. Apolonia Norwood Lymphocytes/100 WBC (Bld) 23.7 % Normal 20.5-60.0 [facility] Comment on above: Performed By: #### F T4 #### [facility] [address] [place] [address] Dr. Apolonia Norwood MANUAL DIFF REQ NO Normal [facility] Comment on above: Performed By: #### F T4 #### [facility] [address] [place] [address] Dr. Apolonia Norwood MCH (RBC) [Entitic mass] 33.2 pg Normal 25.9-34.0 [facility] Comment on above: Performed By: #### F T4 #### [facility] [address] [place] [address] Dr. Apolonia Norwood MCHC (RBC) [Mass/Vol] 32.7 g/dL Normal 29.9-35.2 [facility] Comment on above: Performed By: #### F T4 #### [facility] [address] [place] [address] Dr. Apolonia Norwood MCV (RBC) [Entitic vol] 101.8 fL Critically high 80.0-94.0 [facility] Comment on above: Performed By: #### F T4 #### [facility] [address] [place] [address] Dr. Apolonia Norwood MONO # 0.4 103/ul Normal 0.3-0.8 [facility] Comment on above: Performed By: #### F T4 #### [facility] [address] [place] [address] Dr. Apolonia Norwood Monocytes/100 WBC (Bld) 7.8 % Normal 1.7-12.0 [facility] Comment on above: Performed By: #### F T4 #### [facility] [address] [place] [address] [address] Apolonia Norwood NEUT # 3.3 103/ul Normal 1.4-6.5 [facility] Comment on above: Performed By: #### F T4 #### [facility] [address] [place] [address] [address] Apolonia Norwood Neutrophils/100 WBC (Bld) 62.1 % Normal 43.0-75.0 [facility] Comment on above: Performed By: #### F T4 #### [facility] [address] [place] [address] Dr. Apolonia Norwood Platelet mean volume (Bld) [Entitic vol] 9.5 fL Normal 9.5-13.5 [facility] Comment on above: Performed By: #### F T4 #### [facility] [address] [place] [address] Dr. Apolonia Norwood PLT 181 103/ul Normal 150-450 [facility] Comment on above: Performed By: #### F T4 #### [facility] [address] [place] [address] Dr. Apolonia Norwood RBC 3.85 106/ul Critically low 4.70-6.10 [facility] Comment on above: Performed By: #### F T4 #### [facility] [address] [place] [address] Dr. Apolonia Norwood WBC 5.3 103/ul Normal 4.0-11.0 [facility] Comment on above: Performed By: #### F T4 #### [facility] [address] [place] [address] Dr. Apolonia Norwood PROF 14(COMP METB)on 022 Albumin [Mass/Vol] 2.9 g/dL Critically low 3.4-5.0 [facility] Comment on above: Performed By: #### F T4 #### [facility] [address] [place] [address] Dr. Apolonia Norwood Albumin/Globulin [Mass ratio] 0.9 {ratio} Normal [facility] Comment on above: Performed By: #### F T4 #### [facility] [address] [place] [address] [address] Apolonia Norwood ALP [Catalytic activity/Vol] 55 U/L Normal 46-116 [facility] Comment on above: Performed By: #### F T4 #### [facility] [address] [place] [address] [address] Apolonia Norwood ALT [Catalytic activity/Vol] 11 U/L Critically low 16-63 [facility] Comment on above: Performed By: #### F T4 #### [facility] [address] [place] [address] [address] Apolonia Norwood Anion gap [Moles/Vol] 12.8 mmol/L Normal [facility] Comment on above: Performed By: #### F T4 #### [facility] [address] [place] [address] Dr. Apolonia Norwood AST [Catalytic activity/Vol] 19 U/L Normal 15-37 [facility] Comment on above: Performed By: #### F T4 #### [facility] [address] [place] [address] Dr. Apolonia Norwood Bilirubin [Mass/Vol] 1.3 mg/dL Critically high 0.2-1.0 [facility] Comment on above: Performed By: #### F T4 #### [facility] [address] [place] [address] Dr. Apolonia Norwood Calcium [Mass/Vol] 8.2 mg/dL Critically low 8.5-10.1 [facility] Comment on above: Performed By: #### F T4 #### [facility] [address] [place] [address] Dr. Apolonia Norwood Chloride [Moles/Vol] 106 mmol/L Normal 98-107 [facility] Comment on above: Performed By: #### F T4 #### [facility] [address] [place] [address] Dr. Apolonia Norwood CO2 [Moles/Vol] 24.9 mmol/L Normal 21.0-32.0 [facility] Comment on above: Performed By: #### F T4 #### [facility] [address] [place] [address] Dr. Apolonia Norwood Creatinine [Mass/Vol] 1.10 mg/dL Normal 0.70-1.30 [facility] Comment on above: Performed By: #### F T4 #### [facility] [address] [place] [address] Dr. Apolonia Norwood EGFR-AF AZERBAIJANI >60 Normal >=60 [facility] Comment on above: Performed By: #### F T4 #### [facility] [address] [place] [address] Dr. Apolonia Norwood EGFR-NON AF AZERBAIJANI >60 Normal >=60 [facility] Comment on above: Performed By: #### F T4 #### [facility] [address] [place] [address] Dr. Apolonia Norwood Globulin (S) [Mass/Vol] 3.1 g/dL Normal [facility] Comment on above: Performed By: #### F T4 #### [facility] [address] [place] [address] Dr. Apolonia Norwood Glucose [Mass/Vol] 76 mg/dL Normal 74-106 [facility] Comment on above: Performed By: #### F T4 #### [facility] [address] [place] [address] Dr. Apolonia Norwood Potassium [Moles/Vol] 3.7 mmol/L Normal 3.5-5.1 [facility] Comment on above: Performed By: #### F T4 #### [facility] [address] [place] [address] Dr. Apolonia Norwood Protein [Mass/Vol] 6.0 g/dL Critically low 6.4-8.2 [facility] Comment on above: Performed By: #### F T4 #### [facility] [address] [place] [address] Dr. Apolonia Norwood Sodium [Moles/Vol] 140 mmol/L Normal 136-145 [facility] Comment on above: Performed By: #### F T4 #### [facility] [address] [place] [address] Dr. Apolonia Norwood Urea nitrogen [Mass/Vol] 15.0 mg/dL Normal 7.0-18.0 [facility] Comment on above: Performed By: #### F T4 #### [facility] [address] [place] [address] Dr. Apolonia Norwood Urea nitrogen/Creatinine [Mass ratio] 13.6 mg/mg Normal [facility] Comment on above: Performed By: #### F T4 #### [facility] [address] [place] [address] Dr. Apolonia Norwood XR ABD FLAT_UPon 01-07-2022 [...] YAJAIRA MISHRA Date: 2022-01-07 12:00 Normal [address] [facility] AMYLASEon 01-06-2022 Amylase [Catalytic activity/Vol] 91 U/L Normal 25-[address] [facility] Comment on above: Performed By: #### A MY, LIPA, CMP #### [facility] [address] [place] [address] Dr. Apolonia Norwood BILIRUBIN CONJUGATED (DIRECT )on 01-06-2022 BILI, CONJUGATED 0.3 mg/dL Critically high 0.0-0.2 [facility] Comment on above: Performed By: #### D KHALIF #### [facility] [address] [place] [address] Dr. Apolonia Norwood CBC AUTO DIFFon 01-06-2022 BASO # 0.1 103/ul Normal 0.0-0.1 [facility] Comment on above: Performed By: #### F T4 #### [facility] [address] [place] [address] Dr. Apolonia Norwood Basophils/100 WBC (Bld) 0.9 % Normal 0.2-2.0 [facility] Comment on above: Performed By: #### F T4 #### [facility] [address] [place] [address] Dr. Apolonia Norwood EO # 0.2 103/ul Normal 0.0-0.7 [facility] Comment on above: Performed By: #### F T4 #### [facility] [address] [place] [address] Dr. Apolonia Norwood Eosinophils/100 WBC (Bld) 2.2 % Normal 0.9-7.0 [facility] Comment on above: Performed By: #### F T4 #### [facility] [address] [place] [address] Dr. Apolonia Norwood Erythrocyte distribution width (RBC) [Ratio] 13.9 % Normal 11.0-15.0 [facility] Comment on above: Performed By: #### F T4 #### [facility] [address] [place] [address] Dr. Apolonia Norwood Hematocrit (Bld) [Volume fraction] 44.4 % Normal 42.0-54.0 [facility] Comment on above: Performed By: #### F T4 #### [facility] [address] [place] [address] Dr. Apolonia Norwood Hemoglobin (Bld) [Mass/Vol] 14.6 g/dL Normal 14.0-18.0 [facility] Comment on above: Performed By: #### F T4 #### [facility] [address] [place] [address] Dr. Apolonia Norwood IG # 0.03 10e3/ul Normal 0.00-0.03 [facility] Comment on above: Performed By: #### F T4 #### [facility] [address] [place] [address] Dr. Apolonia Norwood IG % 0.4 % Normal 0.0-0.[address] [facility] Comment on above: Performed By: #### F T4 #### [facility] [address] [place] [address] Dr. Apolonia Norwood LYMPH # 1.4 103/ul Normal 1.2-3.8 [facility] Comment on above: Performed By: #### F T4 #### [facility] [address] [place] [address] Dr. Apolonia Norwood Lymphocytes/100 WBC (Bld) 17.4 % Critically low 20.5-60.0 [facility] Comment on above: Performed By: #### F T4 #### [facility] [address] [place] [address] Dr. Apolonia Norwood MANUAL DIFF REQ NO Normal [facility] Comment on above: Performed By: #### F T4 #### [facility] [address] [place] [address] Dr. Apolonia Norwood MCH (RBC) [Entitic mass] 33.0 pg Normal 25.9-34.0 [facility] Comment on above: Performed By: #### F T4 #### [facility] [address] [place] [address] Dr. Apolonia Norwood MCHC (RBC) [Mass/Vol] 32.9 g/dL Normal 29.9-35.2 [facility] Comment on above: Performed By: #### F T4 #### [facility] [address] [place] [address] Dr. Apolonia Norwood MCV (RBC) [Entitic vol] 100.2 fL Critically high 80.0-94.0 [facility] Comment on above: Performed By: #### F T4 #### [facility] [address] [place] [address] Dr. Apolonia Norwood MONO # 0.5 103/ul Normal 0.3-0.8 [facility] Comment on above: Performed By: #### F T4 #### [facility] [address] [place] [address] Dr. Apolonia Norwood Monocytes/100 WBC (Bld) 6.1 % Normal 1.7-12.0 [facility] Comment on above: Performed By: #### F T4 #### [facility] [address] [place] [address] Dr. Apolonia Norwood NEUT # 5.7 103/ul Normal 1.4-6.5 [facility] Comment on above: Performed By: #### F T4 #### [facility] [address] [place] [address] [address] Apolonia Norwood Neutrophils/100 WBC (Bld) 73.0 % Normal 43.0-75.0 [facility] Comment on above: Performed By: #### F T4 #### [facility] [address] [place] [address] Dr. Apolonia Norwood Platelet mean volume (Bld) [Entitic vol] 9.6 fL Normal 9.5-13.5 [facility] Comment on above: Performed By: #### F T4 #### [facility] [address] [place] [address] Dr. Apolonia Norwood PLT 215 103/ul Normal 150-450 [facility] Comment on above: Performed By: #### F T4 #### [facility] [address] [place] [address] Dr. Apolonia Norwood RBC 4.43 106/ul Critically low 4.70-6.10 [facility] Comment on above: Performed By: #### F T4 #### [facility] [address] [place] [address] Dr. Apolonia Norwood WBC 7.8 103/ul Normal 4.0-11.0 [facility] Comment on above: Performed By: #### F T4 #### [facility] [address] [place] [address] ABD/PELV W CONon 01-07-[address] ABD/PELV W CON EXAMINATION: CT ABD/ PELV W CON HISTORY: ABDOMINAL DISTENSION (GASEOUS) COMPARISON: None. TECHNIQUE: Axial CT of the abd/pelvis with IV contrast. Dose reduction techniques were achieved by using automated exposure control and/or adjustment of mA and/or kV according to patient size and/or use of iterative reconstruction technique. FINDINGS: Time Lock Expert: No pertinent findings, which are not already [...] YE VALENTINE Date: 2022-01-06 17:17 [address] [facility] ([facility])on SARS-CoV-2 (COVID-19) RNA LACY+probe Ql (Unsp spec) Not detected Normal NOT DETECTED [facility] Comment on above: Result Comment: When diagnostic [...] for this test is supported by the [place] of Health and Human Service's declaration that [...] used). Performed By: #### F T4 #### [facility] [address] [place] [address] Dr. Apolonia Norwood ER URINE PROFILEon 2 Bilirubin Ql (U) Negative Normal NEGATIVE [facility] Comment on above: Performed By: #### F T4 #### [facility] [address] [place] [address] Dr. Apolonia Norwood Clarity (U) CLEAR Normal CLEAR [facility] Comment on above: Performed By: #### F T4 #### [facility] [address] [place] [address] Dr. Apolonia Norwood Color (U) LT. YELLOW Normal YELLOW [facility] Comment on above: Performed By: #### F T4 #### [facility] [address] [place] [address] Dr. Apolonia Norwood ERUAHD A micrscopic examina tion will be performed if indicated. Normal [facility] Comment on above: Performed By: #### F T4 #### [facility] [address] [place] [address] Dr. Apolonia Norwood Glucose Ql (U) Negative Normal NEGATIVE [facility] Comment on above: Performed By: #### F T4 #### [facility] [address] [place] [address] Dr. Apolonia Norwood Hemoglobin Ql (U) Negative Normal NEGATIVE [facility] Comment on above: Performed By: #### F T4 #### [facility] [address] [place] [address] Dr. Apolonia Norwood Ketones Ql (U) TRACE Abnormal NEGATIVE [facility] Comment on above: Performed By: #### F T4 #### [facility] [address] [place] [address] Dr. Apolonia Norwood LEUKOCYTES Negative Normal NEGATIVE [facility] Comment on above: Performed By: #### F T4 #### [facility] [address] [place] [address] Dr. Apolonia Norwood Nitrite Ql (U) Negative Normal NEGATIVE [facility] Comment on above: Performed By: #### F T4 #### [facility] [address] [place] [address] Dr. Apolonia Norwood pH (U) 7.0 [pH] Normal 5-9 [facility] Comment on above: Performed By: #### F T4 #### [facility] [address] [place] [address] Dr. Apolonia Norwood SPEC GRAVITY 1.010 Normal 1.005-<=1.0 25 [facility] Comment on above: Performed By: #### F T4 #### [facility] [address] [place] [address] Dr. Apolonia Norwood UA PROTEIN Negative Normal NEGATIVE/ TRACE [facility] Comment on above: Performed By: #### F T4 #### [facility] [address] [place] [address] Dr. Apolonia Norwood UR MICRO IND NOT INDICATED Normal [facility] Comment on above: Performed By: #### F T4 #### [facility] [address] [place] [address] Dr. Apolonia Norwood Urobilinogen Qn (U) 2.0 {John'U}/dL Abnormal 0.2 - 1. 0 [facility] Comment on above: Performed By: #### F T4 #### [facility] [address] [place] [address] Dr. Apolonia Norwood LIPASEon 01-06-2022 Lipase [Catalytic activity/Vol] 92.0 U/L Normal 73.0-393.0 [facility] Comment on above: Performed By: #### A MY, LIPA, CMP #### [facility] [address] [place] [address] Dr. Apolonia Norwood PROF 14(COMP METB)on Albumin [Mass/Vol] 3.6 g/dL Normal 3.4-5.0 [facility] Comment on above: Performed By: #### A MY, LIPA, CMP #### [facility] [address] [place] [address] Dr. Apolonia Norwood Albumin/Globulin [Mass ratio] 0.9 {ratio} Normal [facility] Comment on above: Performed By: #### A JOSE LIPA, CMP #### [facility] [address] [address] [address] Apolonia Norwood ALP [Catalytic activity/Vol] 70 U/L Normal 46-116 [facility] Comment on above: Performed By: #### A MY LIPA, CMP #### [facility] [address] [address] [address] Apolonia Norwood ALT [Catalytic activity/Vol] 15 U/L Critically low 16-63 [facility] Comment on above: Performed By: #### A JOSE LIPA, CMP #### [facility] [address] [place] [address] Dr. Apolonia Norwood Anion gap [Moles/Vol] 13.1 mmol/L Normal [facility] Comment on above: Performed By: #### A JOSE LIPA, CMP #### [facility] [address] [place] [address] Dr. Apolonia Norwood AST [Catalytic activity/Vol] 21 U/L Normal 15-37 [facility] Comment on above: Performed By: #### A JOSE LIPA, CMP #### [facility] [address] [place] [address] Dr. Apolonia Norwood Bilirubin [Mass/Vol] 1.1 mg/dL Critically high 0.2-1.0 [facility] Comment on above: Performed By: #### A MY LIPA, CMP #### [facility] [address] [place] [address] Dr. Apolonia Norwood Calcium [Mass/Vol] 8.9 mg/dL Normal 8.5-10.[address] [facility] Comment on above: Performed By: #### A MY LIPA, CMP #### [facility] [address] [place] [address] Dr. Apolonia Norwood Chloride [Moles/Vol] 107 mmol/L Normal 98-[address] [facility] Comment on above: Performed By: #### A MY, LIPA, CMP #### [facility] [address] [address] [address] Apolonia Norwood CO2 [Moles/Vol] 24.6 mmol/L Normal 21.0-32.0 [facility] Comment on above: Performed By: #### A MY, LIPA, CMP #### [facility] [address] [address] [address] Apolonia Norwood Creatinine [Mass/Vol] 1.10 mg/dL Normal 0.70-1.[address] [facility] Comment on above: Performed By: #### A MY, LIPA, CMP #### [facility] [address] [address] [address] Apolonia Norwood EGFR-AF AZERBAIJANI >60 Normal >=[address] [facility] Comment on above: Performed By: #### A MY, LIPA, CMP #### [facility] [address] [place] [address] Dr. Apolonia Norwood EGFR-NON AF AZERBAIJANI >60 Normal >=[address] [facility] Comment on above: Performed By: #### A MY, LIPA, CMP #### [facility] [address] [address] [address] Apolonia Norwood Globulin (S) [Mass/Vol] 3.9 g/dL Normal [facility] Comment on above: Performed By: #### A MY, LIPA, CMP #### [facility] [address] [address] [address] Apolonia Norwood Glucose [Mass/Vol] 85 mg/dL Normal 74-[address] [facility] Comment on above: Performed By: #### A MY, LIPA, CMP #### [facility] [address] [address] [address] Apolonia Norwood Potassium [Moles/Vol] 3.7 mmol/L Normal 3.5-5.[address] [facility] Comment on above: Performed By: #### A MY, LIPA, CMP #### [facility] [address] [address] [address] Apolonia Norwood Protein [Mass/Vol] 7.5 g/dL Normal 6.4-8.[address] [facility] Comment on above: Performed By: #### A MY, LIPA, CMP #### [facility] [address] [address] [address] Apolonia Norwood Sodium [Moles/Vol] 141 mmol/L Normal 136-145 [facility] Comment on above: Performed By: #### A MY, LIPA, CMP #### [facility] [address] [address] [address] Apolonia Norwood Urea nitrogen [Mass/Vol] 13.0 mg/dL Normal 7.0-18.0 [facility] Comment on above: Performed By: #### A MY, LIPA, CMP #### [facility] [address] [address] [address] Apolonia Norwood Urea nitrogen/Creatinine [Mass ratio] 11.8 mg/mg Normal [facility] Comment on above: Performed By: #### A MY, LIPA, CMP #### [facility] [address] [address] [address] Apolonia Norwood CBCon 11-15-2021 HCT Canceled Normal [facility] Comment on above: Order Comment: TEST CBC WAS CANCELLED, 11/15/2021 04:14 Performed By: #### C BC #### [facility] [address] [place] [address] HGB Canceled Normal [facility] Comment on above: Order Comment: TEST CBC WAS CANCELLED, 11/15/2021 04:14 Performed By: #### C BC #### [facility] [address] [place] [address] MCHC Canceled Normal [facility] Comment on above: Order Comment: TEST CBC WAS CANCELLED, 11/15/2021 04:14 Performed By: #### C BC #### [facility] [address] [place] [address] MCV Canceled Normal [facility] Comment on above: Order Comment: TEST CBC WAS CANCELLED, 11/15/2021 04:14 Performed By: #### C BC #### [facility] [address] [place] [address] NUCLEATED RBC Canceled Normal [facility] Comment on above: Order Comment: TEST CBC WAS CANCELLED, 11/15/2021 04:14 Performed By: #### C BC #### [facility] [address] [place] [address] PLT Canceled Normal [facility] Comment on above: Order Comment: TEST CBC WAS CANCELLED, 11/15/2021 04:14 Performed By: #### C BC #### [facility] [address] [place] [address] RBC Canceled Normal [facility] Comment on above: Order Comment: TEST CBC WAS CANCELLED, 11/15/2021 04:14 Performed By: #### C BC #### [facility] [address] [place] [address] RDW-CV Canceled Normal [facility] Comment on above: Order Comment: TEST CBC WAS CANCELLED, 11/15/2021 04:14 Performed By: #### C BC #### [facility] [address] [place] [address] WBC Canceled Normal [facility] Comment on above: Order Comment: TEST CBC WAS CANCELLED, 11/15/2021 04:14 Performed By: #### C BC #### [facility] [address] [place] [address] COAGULATION SCREENon 022 APTT Canceled Normal [facility] Comment on above: Order Comment: TEST COAGULATION SCREEN WAS CANCELLED, 11/15/2021 04:14 Result Comment: THE APTT IS NO LONGER USED FOR MONITORING UNFRACTIONATED HEPARIN THERAPY. FOR MONITORING HEPARIN THERAPY, USE THE HEPARIN ASSAY. Performed By: #### C OAGS #### [facility] [address] [place] [address] PROTHROMBIN TIME Canceled Normal [facility] Comment on above: Order Comment: TEST COAGULATION SCREEN WAS CANCELLED, 11/15/2021 04:14 Performed By: #### C OAGS #### [facility] [address] [place] [address] PT, INR Canceled Normal [facility] Comment on above: Order Comment: TEST COAGULATION SCREEN WAS CANCELLED, 11/15/2021 04:14 Performed By: #### C OAGS #### [facility] [address] [place] [address] MAGNESIUMon 11-15-2021 MAGNESIUM Canceled Normal [facility] Comment on above: Order Comment: TEST MAGNESIUM WAS CANCELLED, 11/15/2021 04:14 Performed By: #### M G #### [facility] [address] [place] [address] RENAL FUNCTION PANELon 11-15 ALBUMIN Canceled Normal [facility] Comment on above: Order Comment: TEST RENAL FUNCTION PANEL WAS CANCELLED, 11/15/2021 04:14 Performed By: #### R ENAL #### [facility] [address] [place] [address] ANION GAP Canceled Normal [facility] Comment on above: Order Comment: TEST RENAL FUNCTION PANEL WAS CANCELLED, 11/15/2021 04:14 Performed By: #### R ENAL #### [facility] [address] [place] [address] BICARBONATE Canceled Normal [facility] Comment on above: Order Comment: TEST RENAL FUNCTION PANEL WAS CANCELLED, 11/15/2021 04:14 Performed By: #### R ENAL #### [facility] [address] [place] [address] CALCIUM Canceled Normal [facility] Comment on above: Order Comment: TEST RENAL FUNCTION PANEL WAS CANCELLED, 11/15/2021 04:14 Performed By: #### R ENAL #### [facility] [address] [place] [address] CHLORIDE Canceled Normal [facility] Comment on above: Order Comment: TEST RENAL FUNCTION PANEL WAS CANCELLED, 11/15/2021 04:14 Performed By: #### R ENAL #### [facility] [address] [place] [address] CREATININE Canceled Normal [facility] Comment on above: Order Comment: TEST RENAL FUNCTION PANEL WAS CANCELLED, 11/15/2021 04:14 Performed By: #### R ENAL #### [facility] [address] [place] [address] eGFR FEMALE Canceled Normal [facility] Comment on above: Order Comment: TEST RENAL FUNCTION PANEL WAS CANCELLED, 11/15/2021 04:14 Result Comment: CALC ULATIONS OF ESTIMATED GFR ARE PERFORMED USING THE 2020 CKD-EPI STUDY REFIT EQUATION WITHOUT THE RACE VARIABLE FOR THE IDMS-TRACEABLE CREATININE METHODS. https://jasn.asnjournals.org/content/early/ASN.69190 04129 Performed By: #### R ENAL #### [facility] [address] [place] [address] eGFR MALE Canceled Normal [facility] Comment on above: Order Comment: TEST RENAL FUNCTION PANEL WAS CANCELLED, 11/15/2021 04:14 Result Comment: CALC ULATIONS OF ESTIMATED GFR ARE PERFORMED USING THE 2020 CKD-EPI STUDY REFIT EQUATION WITHOUT THE RACE VARIABLE FOR THE IDMS-TRACEABLE CREATININE METHODS. https://jasn.asnjournals.org/content/early/ASN.04797 37374 Performed By: #### R ENAL #### [facility] [address] [place] [address] GLUCOSE Canceled Normal [facility] Comment on above: Order Comment: TEST RENAL FUNCTION PANEL WAS CANCELLED, 11/15/2021 04:14 Performed By: #### R ENAL #### [facility] [address] [place] [address] PHOSPHORUS Canceled Normal [facility] Comment on above: Order Comment: TEST RENAL FUNCTION PANEL WAS CANCELLED, 11/15/2021 04:14 Result Comment: The performance characteristics of phosphorus testing in heparinized plasma have been validated by the individual laboratory site where testing is performed. Testing on heparinized plasma is not approved by the FDA; however, such approval is not necessary. Performed By: #### R ENAL #### [facility] [address] [place] [address] POTASSIUM Canceled Normal [facility] Comment on above: Order Comment: TEST RENAL FUNCTION PANEL WAS CANCELLED, 11/15/2021 04:14 Performed By: #### R ENAL #### [facility] [address] [place] [address] SODIUM Canceled Normal [facility] Comment on above: Order Comment: TEST RENAL FUNCTION PANEL WAS CANCELLED, 11/15/2021 04:14 Performed By: #### R ENAL #### [facility] [address] [place] [address] UREA NITROGEN Canceled Normal [facility] Comment on above: Order Comment: TEST RENAL FUNCTION PANEL WAS CANCELLED, 11/15/2021 04:14 Performed By: #### R ENAL #### [facility] [address] [place] [address] Clinical Event Noteon 2021 Clinical Event Note [...] as specified above. Benoit Arroyo MD pager [phone] Plan of Care Reviewed Withfamily Electronic Signatures: Benoit Arroyo) (Signed 14-Nov-2021 14:53) Authored: Clinical Event Note Last Updated: 14-Nov-2021 14:53 by Benoit Arroyo) Normal [facility] Electrocardiogram 12 Leadon 11-14-2021 Electrocardiogram 12 Lead Ventricular Rate 66 Atrial Rate 66 P-R Interval 136 QRS Duration 154 Q-T Interval 476 QTC Calculation(Bazett) 499 R Howe 86 T Howe -67 QRS Count 11 Q Onset 195 P Onset 127 P Offset 183 T Offset 433 QTC Fredericia 491 Diagnosis Class Abnormal Diagnosis Atrial-sensed ventricular-paced rhythm Abnormal ECG When compared with ECG of 09-SEP-2021 11:46, Vent. rate has decreased BY 8 BPM Confirmed by Quintin Calderon ([id number]) on 01/03/2022 8:15:07 AM Normal [facility] Intraoperative Transesophage al Echoon 11-14-2021 Intraoperative Transesophageal Echo [facility], [address] [place] [address] and TRANSTHORACIC ECHOCARDIOGRAM REPORT Patient Name: CORKY DUENAS Ki Physician: [id number] Laurent Gamez MD Study Date: 11/14/2021 Referring BISHOP HAGER Physician: MRN/PID: [id number] PCP: Accession/Order#: [id number] Department [facility] Cath Location: Lab Date of : 1950 Fellow: [id number] Alex Marie MD Gender: M Nurse: Admit Date: 11/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 Assistant: Nasim Bowens [facility] Admission Status: Inpatient - Additional Staff: Routine Height: 167.64 cm CC Report to: Weight: 58.00 kg Study Type: Intraoperative Transesophageal Echo BSA: 1.65 m2 Blood Pressure: 132 /68 mmHg Diagnosis/ICD: I34.0-Nonrheumatic mitral (valve) insufficiency Indication: Mitraclip Procedure Procedure/CPT: Echocardiography, Transesophageal (LUCAS) for Guidance of a Transcatheter Intracardiac or Great Vessel(s) Structural Intervention(s)-48630 Patient History: 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 Study [...] in the descending aorta. QUANTITATIVE DATA SUMMARY: [id number] Laurent Gamez MD Electronically signed on 11/15/2021 at 8:20:56 AM Final Normal [facility] No Panel Informationon 11-14 [facility]-Cardiolo gy-[facility] Rober [...] present, witho (more content not included)... Normal [facility] Order Reconciliation Page 1 Admission Reconciliation Document Reconciliation Type: Admission requested on behalf of Lissa Spears (Advanced Practice Nurse) done by Lissa Spears ([facility] COMMUNICATIONS ADMINISTRATOR-MANAGER TEST) Admission - Reconciliation: 14-Nov-2021 12:45 by: Lissa Spears ([facility] COMMUNICATIONS ADMINISTRATOR-MANAGER TEST) Home MedicationsEnteredLast Dose TakenReconciled with current Order Reconciliation Comment/ Additional Information carvedilol 12.5 mg oral tablet 1.5 tab(s) orally 2 times a [id number]-Nov-2021 Reviewed and Held cholecalciferol 50 mcg (2000 intl units) oral tablet 1 tab(s) orally once a day PM Reviewed and Held digoxin 125 mcg (0.125 mg) oral tablet 1 tab(s) orally once a [id number]-Nov-2021 PM Reviewed and Held furosemide 40 mg oral tablet 1 tab(s) orally once a [id number] PM Reviewed and Held levothyroxine 300 mcg (0.3 mg) oral tablet 1 tab(s) orally once a day Levothyroxine TabletDOSE = 300 microgram(s) Oral Dailylevothyroxine 300 mcg (0.3 mg) oral tablet continued as the inpatient order Levothyroxine magnesium oxide 400 mg oral tablet 1 tab(s) orally once a [id number]-Nov-2021 Reviewed and Held Multiple Vitamins with Iron oral tablet 1 tab(s) orally once a [id number]-Nov-2021 Reviewed and Held sacubitril-valsartan 97 mg-103 mg [...] Hours, PRN Pain - Mod (4-6) Normal [facility] CORONAVIRUS 2019, SCREEN ASY MPTOMATICon 11-11-2021 SARS-CoV-2 (COVID-19) RNA LACY+probe Ql (Unsp spec) Not detected Normal Not Detected [facility] Comment on above: Result Comment: . This [...] patient management decisions. Fact sheet for providers: https://www.fda.gov/media/012339/download Fact sheet for patients: https://www.fda.gov/media/502837/download This test has received FDA Emergency Use Authorization (EUA) and has been verified by [facility] ([facility]). This test is only authorized for the duration of time that circumstances exist to justify the authorization of the emergency use of in vitro diagnostic tests for the detection of SARS-CoV-2 virus and/or diagnosis of COVID-19 infection under section 564(b)(1) of the Act, 21 U.S.C. 360bbb-3(b)(1), unless the authorization is terminated or revoked sooner. [facility] is certified under CLIA-88 as qualified to perform high complexity testing. Testing is performed in the [facility] laboratories [place] [address] [place] [address]. Performed By: #### C OAGS #### [facility] [id number] [place] [address] Lab Specimen Source Nasal, Nasopharyngeal Normal [facility] Comment on above: Performed By: #### C OAGS #### [facility] [address] [id number] Coronavirus 2019 RNA by PCR, Screening Asymptomticon 11-11-2021 Coronavirus 2019 RNA by PCR, Screening Asymptomtic Not detected Normal See Below [facility]-Cardiolo gy-[facility] Rober Martinez [address] [...] make patient management decisions.Fact sheet for providers: https://www.fda.gov/media/517823/downloadFact sheet for patients: https://www.fda.gov/media/356302/downloadThis test has received FDA Emergency Use Authorization (EUA) and has been verified by [facility] ([facility]). This test is only authorized for the duration of time that circumstances exist to justify the authorization of the emergency use of in vitro diagnostic tests for the detection of SARS-CoV-2 virus and/or diagnosis of COVID-19 infection under section 564(b)(1) of the Act, 21 U.S.C. 360bbb-3(b)(1), unless the authorization is terminated or revoked sooner. [facility] is certified under CLIA-88 as qualified to perform high complexity testing. Testing is performed in the [facility] laboratories located at [address] [place] [address]. Covid 19 Resultson 2 SARS-CoV-2 (COVID-19) RNA [...] You may also be contacted by the [place] [facility] [employer] to see if any [...] or Naproxen (Aleve) can also be used. Puhi-jqc-ldmoesu cough and cold medicines can be used according to the instructions on the package. Some giaw-hty-pdgpkkw medicines also contain acetaminophen. Make sure you [...] water are not available, use alcohol-based hand manager environmental. Avoid touching your eyes, nose, and mouth [...] 24 amber (more content not included)... Normal [facility] ARTERIAL BLOOD GAS,CO-OXon 0 10-31-2021 BASE EXCESS-BLOOD 1.3 mmol/L Normal -2.0 - 3.0 [facility] Comment on above: Performed By: #### C OAGS #### [facility] [address] [place] [address] BICARB, CALCULATED 25.0 mmol/L Normal 22.0 - 26.0 [facility] Comment on above: Performed By: #### C OAGS #### [facility] [address] [place] [address] CO HGB 1.7 % Abnormal [facility] Comment on above: Result Comment: REF VALUES NONSMOKERS 0.5-1.5% SMOKERS 0.5-10.0% Performed By: #### C OAGS #### [facility] [address] [place] [address] DEOXY HGB 1.5 % Normal 0.0 - 5.0 [facility] Comment on above: Performed By: #### C OAGS #### [facility] [address] [place] [address] Hemoglobin (Bld) [Mass/Vol] 15.9 g/dL Normal 13.5 - 17.5 [facility] Comment on above: Performed By: #### C OAGS #### [facility] [address] [place] [address] MET HGB 1.2 % Normal 0.0 - 1.5 [facility] Comment on above: Performed By: #### C OAGS #### [facility] [address] [place] [address] OXY HGB 95.6 % Normal 94.0 - 98.0 [facility] Comment on above: Performed By: #### C OAGS #### [facility] [address] [place] [address] Oxygen (Bld) [Partial pressure] 94 mm[Hg] Normal 85 - 95 [facility] Comment on above: Performed By: #### C OAGS #### [facility] [address] [place] [address] PATIENT TEMPERATURE 37.0 degrees C Normal [facility] Comment on above: Result Comment: NOTE : PATIENT RESULTS ARE NOT CORRECTED FOR TEMPERATURE. Performed By: #### C OAGS #### [facility] [address] [place] [address] PCO2 36 mmHg Low 38 - 42 [facility] Comment on above: Performed By: #### C OAGS #### [facility] [address] [place] [address] pH (Bld) 7.45 [pH] High 7.38 - 7.42 [facility] Comment on above: Performed By: #### C OAGS #### [facility] [address] [place] [address] SO2 99 % Normal 94 - 100 [facility] Comment on above: Performed By: #### C OAGS #### [facility] [address] [place] [address] CBC AND DIFFERENTIALon 10-31 % AUTOMATED IMMATURE GRAN 0.6 % Normal 0.0 - 0.9 [facility] Comment on above: Result Comment: Misa ture Granulocyte Count (IG) includes promyelocytes, myelocytes and metamyelocytes but does not include bands. Percent differential counts (%) should be interpreted in the context of the absolute cell counts (cells/L). Performed By: #### C BCDF #### [facility] [address] [place] [address] Basophils (Bld) [#/Vol] 0.05 10*3/uL Normal 0.00 - 0.10 [facility] Comment on above: Performed By: #### C BCDF #### [facility] [address] [place] [address] Basophils/100 WBC (Bld) 0.8 % Normal 0.0 - 2.0 [facility] Comment on above: Performed By: #### C BCDF #### [facility] [address] [place] [address] Eosinophils (Bld) [#/Vol] 0.16 10*3/uL Normal 0.00 - 0.70 [facility] Comment on above: Performed By: #### C BCDF #### [facility] [address] [place] [address] Eosinophils/100 WBC (Bld) 2.5 % Normal 0.0 - 6.0 [facility] Comment on above: Performed By: #### C BCDF #### [facility] [address] [place] [address] Erythrocyte distribution width (RBC) [Ratio] 14.4 % Normal 11.5 - 14.5 [facility] Comment on above: Performed By: #### C BCDF #### [facility] [address] [place] [address] Hematocrit (Bld) [Volume fraction] 51.4 % Normal 41.0 - 52.0 [facility] Comment on above: Performed By: #### C BCDF #### [facility] [address] [place] [address] Hemoglobin (Bld) [Mass/Vol] 16.6 g/dL Normal 13.5 - 17.5 [facility] Comment on above: Performed By: #### C BCDF #### [facility] [address] [place] [address] Lymphocytes (Bld) [#/Vol] 1.11 10*3/uL Low 1.20 - 4.80 [facility] Comment on above: Performed By: #### C BCDF #### [facility] [address] [place] [address] Lymphocytes/100 WBC (Bld) 17.0 % Normal 13.0 - 44.0 [facility] Comment on above: Performed By: #### C BCDF #### [facility] [address] [place] [address] MCHC (RBC) [Mass/Vol] 32.3 g/dL Normal 32.0 - 36.0 [facility] Comment on above: Performed By: #### C BCDF #### [facility] [address] [place] [address] MCV (RBC) [Entitic vol] 101 fL High 80 - 100 [facility] Comment on above: Performed By: #### C BCDF #### [facility] [address] [place] [address] Monocytes (Bld) [#/Vol] 0.56 10*3/uL Normal 0.10 - 1.00 [facility] Comment on above: Performed By: #### C BCDF #### [facility] [address] [place] [address] Monocytes/100 WBC (Bld) 8.6 % Normal 2.0 - 10.0 [facility] Comment on above: Performed By: #### C BCDF #### [facility] [address] [place] [address] Neutrophils (Bld) [#/Vol] 4.60 10*3/uL Normal 1.20 - 7.70 [facility] Comment on above: Performed By: #### C BCDF #### [facility] [address] [place] [address] Neutrophils/100 WBC (Bld) 70.5 % Normal 40.0 - 80.0 [facility] Comment on above: Performed By: #### C BCDF #### [facility] [address] [place] [address] NUCLEATED RBC 0.0 /100 WBC Normal 0.0-0.0 [facility] Comment on above: Performed By: #### C BCDF #### [facility] [address] [place] [address] Platelets (Bld) [#/Vol] 242 10*3/uL Normal 150 - 450 [facility] Comment on above: Performed By: #### C BCDF #### [facility] [address] [place] [address] RBC 5.11 x10E12/L Normal 4.50 - 5.90 [facility] Comment on above: Performed By: #### C BCDF #### [facility] [address] [place] [address] WBC (Bld) [#/Vol] 6.5 10*3/uL Normal 4.4 - 11.3 [facility] Comment on above: Performed By: #### C BCDF #### [facility] [address] [place] [address] COAGULATION SCREENon 022 aPTT Coag (Bld) [Time] 37 s Normal 26 - 39 [facility] Comment on above: Result Comment: THE APTT IS NO LONGER USED FOR MONITORING UNFRACTIONATED HEPARIN THERAPY. FOR MONITORING HEPARIN THERAPY, USE THE HEPARIN ASSAY. Performed By: #### C OAGS #### [facility] [address] [place] [address] PT Coag (PPP) [Time] 12.2 s Normal 9.8 - 13.4 [facility] Comment on above: Performed By: #### C OAGS #### [facility] [address] [place] [address] PT, INR 1.1 Normal 0.9 - 1.1 [facility] Comment on above: Performed By: #### C OAGS #### [facility] [address] [place] [address] COMPREHENSIVE PANELon 2021 Albumin [Mass/Vol] 4.3 g/dL Normal 3.4 - 5.0 [facility] Comment on above: Performed By: #### C MP #### [facility] [address] [place] [address] ALP [Catalytic activity/Vol] 75 U/L Normal 33 - 136 [facility] Comment on above: Performed By: #### C MP #### [facility] [address] [place] [address] ALT [Catalytic activity/Vol] 15 U/L Normal 10 - 52 [facility] Comment on above: Result Comment: Brittani ents treated with Sulfasalazine may generate falsely decreased results for ALT. Performed By: #### C MP #### [facility] [address] [place] [address] Anion gap [Moles/Vol] 17 mmol/L Normal 10 - 20 [facility] Comment on above: Performed By: #### C MP #### [facility] [address] [place] [address] AST [Catalytic activity/Vol] 21 U/L Normal 9 - 39 [facility] Comment on above: Performed By: #### C MP #### [facility] [address] [place] [address] Bilirubin [Mass/Vol] 1.0 mg/dL Normal 0.0 - 1.2 [facility] Comment on above: Performed By: #### C MP #### [facility] [address] [place] [address] Calcium [Mass/Vol] 9.3 mg/dL Normal 8.6 - 10.6 [facility] Comment on above: Performed By: #### C MP #### [facility] [address] [place] [address] Chloride [Moles/Vol] 103 mmol/L Normal 98 - 107 [facility] Comment on above: Performed By: #### C MP #### [facility] [address] [place] [address] Creatinine [Mass/Vol] 1.35 mg/dL High 0.50 - 1.30 [facility] Comment on above: Performed By: #### C MP #### [facility] [address] [place] [address] GFR/1.73 sq M.predicted among non-blacks MDRD (S/P/Bld) [Vol rate/Area] 57 mL/min/{1.73_m2} Abnormal >90 [facility] Comment on above: Result Comment: CALC ULATIONS OF ESTIMATED GFR ARE PERFORMED USING THE 2020 CKD-EPI STUDY REFIT EQUATION WITHOUT THE RACE VARIABLE FOR THE IDMS-TRACEABLE CREATININE METHODS. https://jasn.asnjournals.org/content//ASN.83461 19674 Performed By: #### C MP #### [facility] [address] [place] [address] Glucose [Mass/Vol] 88 mg/dL Normal 74 - 99 [facility] Comment on above: Performed By: #### C MP #### [facility] [address] [place] [address] HCO3 (Bld) [Moles/Vol] 25 mmol/L Normal 21 - 32 [facility] Comment on above: Performed By: #### C MP #### [facility] [address] [place] [address] Potassium [Moles/Vol] 5.0 mmol/L Normal 3.5 - 5.3 [facility] Comment on above: Performed By: #### C MP #### [facility] [address] [place] [address] Protein [Mass/Vol] 7.3 g/dL Normal 6.4 - 8.2 [facility] Comment on above: Performed By: #### C MP #### [facility] [address] [place] [address] Sodium [Moles/Vol] 140 mmol/L Normal 136 - 145 [facility] Comment on above: Performed By: #### C MP #### [facility] [address] [place] [address] Urea nitrogen [Mass/Vol] 12 mg/dL Normal 6 - 23 [facility] Comment on above: Performed By: #### C MP #### [facility] [address] [place] [address] Complete Blood Count + Diffe eboni 10-31-2021 Basophils/100 WBC (Bld) 0.8 % 0.0 - 2.0 [facility] 6 Work Phone: Erythrocyte distribution width (RBC) [Ratio] 14.4 % See Below [facility] 6 Work Phone: Comment on above: Reference Range: 11. 5 - 14.5 Hematocrit (Bld) [Volume fraction] 51.4 % See Below [facility] [place] [address] Work Phone: [phone] Comment on above: Reference Range: 41. 0 - 52.0 Hemoglobin (Bld) [Mass/Vol] 16.6 g/dL See Below [facility] Work Phone: Comment on above: Reference Range: 13. 5 - 17.5 Lymphocytes/100 WBC (Bld) 17.0 % See Below [facility] Work Phone: [phone] Comment on above: Reference Range: 13. 0 - 44.0 MCHC (RBC) [Mass/Vol] 32.3 g/dL See Below [facility] Work Phone: [phone] Comment on above: Reference Range: 32. 0 - 36.0 MCV (RBC) [Entitic vol] 101 fL above high threshold 80 - 100 [facility] Work Phone: [phone] Monocytes/100 WBC (Bld) 8.6 % 2.0 - 10.0 [facility] 6 Work Phone: [phone] Neutrophils/100 WBC (Bld) 70.5 % See Below [facility] 6 Work Phone: Comment on above: Reference Range: 40. 0 - 80.0 Platelets (Bld) [#/Vol] 242 10*3/uL 150 - 450 [facility] 6 Work Phone: [phone] RBC (Bld) [#/Vol] 5.11 {x10E12/L} See Below [facility] Work Phone: [phone] Comment on above: Reference Range: 4.5 0 - 5.90 WBC (Bld) [#/Vol] 6.5 10*3/uL 4.4 - 11.3 [facility] Work Phone: Complete Blood Count + [...] globulin screen (Bld) [Interp] Positive [facility] [place] [address] Work Phone: [phone] Laboratory - Chemistry and C hemistry - challengeon 10-31-2021 Albumin BCP dye [Mass/Vol] 4.3 g/dL 3.4 - 5.0 [facility] [place] [address] Work Phone: [phone] ALP [Catalytic activity/Vol] 75 U/L 33 - 136 [facility] 6 Work Phone: [phone] ALT With P-5'-P [Catalytic activity/Vol] 15 U/L 10 - 52 [facility] [place] [address] Work Phone: [phone] Comment on above: Patients treated wit h Sulfasalazine may generate falsely decreased results for ALT. Anion gap [Moles/Vol] 17 mmol/L 10 - 20 [facility] [place] [address] Work Phone: [phone] AST With P-5'-P [Catalytic activity/Vol] 21 U/L 9 - 39 [facility] [place] [address] Work Phone: [phone] Bilirubin [Mass/Vol] 1.0 mg/dL 0.0 - 1.2 [facility] [place] [address] Work Phone: [phone] Calcium [Mass/Vol] 9.3 mg/dL 8.6 - 10.6 [facility] [place] [address] Work Phone: [phone] Chloride [Moles/Vol] 103 mmol/L 98 - 107 [facility] [place] [address] Work Phone: [phone] CO2 [Moles/Vol] 25 mmol/L 21 - 32 [facility] Work Phone: [phone] Creatinine [Mass/Vol] 1.35 mg/dL above high threshold See Below [facility] Work Phone: [phone] Comment on above: Reference Range: 0.5 0 - 1.30 Glucose [Mass/Vol] 88 mg/dL 74 - 99 [facility] [place] [address] Work Phone: [phone] Potassium [Moles/Vol] 5.0 mmol/L 3.5 - 5.3 [facility] [place] [address] Work Phone: [phone] Protein [Mass/Vol] 7.3 g/dL 6.4 - 8.2 [facility] [place] [address] Work Phone: [phone] Sodium [Moles/Vol] 140 mmol/L 136 - 145 [facility] [place] [address] Work Phone: [phone] Urea nitrogen [Mass/Vol] 12 mg/dL 6 - 23 [facility] [place] [address] Work Phone: [phone] Base excess Calc (Bld) [Moles/Vol] 1.3 mmol/L -2.0 - 3.0 [facility] [address] [place] Work Phone: [phone] Carboxyhemoglobin (BldA) [Mass fraction] 1.7 % Abnormal [facility] [address] [place] Work Phone: [phone] Comment on above: REF VALUESNONSMOKERS 0.5-1.5%SMOKERS 0.5-10.0% CO2 (Bld) [Partial pressure] 36 mm[Hg] below low threshold 38 - 42 [facility] [address] [place] Work Phone: [phone] HCO3 (Bld) [Moles/Vol] 25.0 mmol/L See Below M [facility] [address] [place] Work Phone: [phone] Comment on above: Reference Range: 22. 0 - 26.0 Methemoglobin (BldA) [Mass fraction] 1.2 % 0.0 - 1.5 [facility] [address] [place] Work Phone: [phone] Oxygen (Bld) [Partial pressure] 94 mm[Hg] 85 - 95 [facility] [address] [place] Work Phone: Oxyhemoglobin (BldA) [Mass fraction] 95.6 % See Below [facility] [place] Work Phone: Comment on above: Reference Range: 94. 0 - 98.0 pH (Bld) 7.45 [pH] above high threshold See Below [facility] [place] Work Phone: Comment on above: Reference Range: 7.3 8 - 7.42 Laboratory - Coagulationon 0 10-31-2021 aPTT Coag (PPP) [Time] 37 s 26 - 39 [facility] [place] [address] Work Phone: Comment on above: THE APTT IS NO LONGE R USED FOR MONITORING UNFRACTIONATED HEPARIN THERAPY. FOR MONITORING HEPARIN THERAPY, USE THE HEPARIN ASSAY. INR Coag (PPP) [Relative time] 1.1 {INR} 0.9 - 1.1 [facility] [place] [address] Work Phone: PT Coag (PPP) [Time] 12.2 s 9.8 - 13.4 [facility] [place] [address] Work Phone: Laboratory - Hematology and Cell countson 10-31-2021 Deoxyhemoglobin (BldA) [Mass fraction] 1.5 % 0.0 - 5.0 [facility] [address] [place] Work Phone: Hemoglobin (Bld) [Mass/Vol] 15.9 g/dL See Below [facility] [address] [place] Work Phone: Comment on above: Reference Range: 13. 5 - 17.5 MRSA Screenon 10-31-2021 Staphylococcus sp identified Org specific cx Nom (Unsp spec) Abnormal [facility] [address] [place] Work Phone: No Panel Informationon 10-31 57 {mL/min/1.73m2} Abnormal >90 [facility] [place] [address] Work Phone: Comment on above: CALCULATIONS OF AYANA MATED GFR ARE PERFORMED USING THE 2020 CKD-EPI STUDY REFIT EQUATION WITHOUT THE RACE VARIABLE FOR THE IDMS-TRACEABLE CREATININE METHODS.https://jasn.asnjournals.org/content/early/A SN.8938602016 Radiologyon 10-31-2021 XR Chest 2 Views Normal [facility] Work Phone: STAPH/MRSA SCREENon 11-01-19 STAPH/MRSA SCREEN PATIENT: BETTY DUENAS LOCATION: [facility]#: [id number] : 54 AGE: SEX: M ORDERED BY: MURPHY GARCIA SOURCE: ANTERIOR NARES COLLECTED: 10/31/21 14:24 ANTIBIOTICS AT [facility].: RECEIVED : 10/31/21 17:18 SITE: Nasal R E S U L T S STAPH/MRSA SCREEN FINAL 11/02/21 08:51 ISOLATE1 : Staphylococcus aureus METHICILLIN SENSITIVE STAPHYLOCOCCUS AUREUS (MSSA) Normal [facility] Comment on above: Performed By: #### S TAPH #### [facility] [address] [place] [address] TH CHEST 2 VIEW PA AND LATon 10-31-2021 TH CHEST 2 VIEW PA AND LAT Patient Name: CORKY DUENAS STUDY: TH CHEST 2 VIEW PA AND LAT; 10/31/2021 3:06 pm INDICATION: dyspnea . COMPARISON: 06/10/2020 ACCESSION NUMBER(S): [id number] ORDERING CLINICIAN: CRISTOBAL GARCIA FINDINGS: PA and [...] as stated. This study was interpreted at [facility], [place], [place]. Electronically signed by: JEFF CRESPO MD Normal [facility] TYPE + SCREENon 10-31-2021 ABO TYPE O Normal [facility] Comment on above: Performed By: #### T +S #### [facility] [address] [place] [address] RH TYPE Positive Normal [facility] Comment on above: Performed By: #### T +S #### [facility] [address] [place] [address] URINALYSIS WITH CULTURE IF I NDICATEDon 10-31-2021 Appearance (U) CLEAR Normal CLEAR [facility] Comment on above: Performed By: #### U ARFX #### [facility] [address] [place] [address] Bilirubin Ql (U) Negative Normal NEGATIVE [facility] Comment on above: Performed By: #### U ARFX #### [facility] [address] [place] [address] Color (U) YELLOW Normal STRAW,YELLO W [facility] Comment on above: Performed By: #### U ARFX #### [facility] [address] [place] [address] Glucose Ql (U) Negative Normal NEGATIVE [facility] Comment on above: Performed By: #### U ARFX #### [facility] [address] [place] [address] Hemoglobin Ql (U) Negative Normal NEGATIVE [facility] Comment on above: Performed By: #### U ARFX #### [facility] [address] [place] [address] Ketones Ql (U) Negative Normal NEGATIVE [facility] Comment on above: Performed By: #### U ARFX #### [facility] [address] [place] [address] Leukocyte esterase Test strip Ql (U) Negative Normal NEGATIVE [facility] Comment on above: Performed By: #### U ARFX #### [facility] [address] [place] [address] Nitrite Ql (U) Negative Normal NEGATIVE [facility] Comment on above: Performed By: #### U ARFX #### [facility] [address] [place] [address] pH (U) 6.0 [pH] Normal 5.0 - 8.0 [facility] Comment on above: Performed By: #### U ARFX #### [facility] [address] [place] [address] Protein Ql (U) Negative Normal NEGATIVE [facility] Comment on above: Performed By: #### U ARFX #### [facility] [address] [place] [address] Specific gravity (U) [Rel density] 1.011 Normal 1.005 - 1.035 [facility] Comment on above: Performed By: #### U ARFX #### [facility] [address] [place] [address] Urobilinogen (U) [Mass/Vol] mg/dL Normal 0.0 - 1.9 [facility] Comment on above: Performed By: #### U ARFX #### [facility] [address] [place] [address] Color (U) YELLOW See Below [facility] [...] NEGATIVE [facility] [place] [facility] Work Phone: [phone] URINALYSIS WITH CULTURE IF INDICATED <2.0 0.0 - 1.9 [facility] [place] Work Phone: [phone] URINALYSIS WITH CULTURE IF INDICATED CLEAR CLEAR [facility] Work Phone: Blood Pressure Cuff Sizeon 0 09-09-2021 Fall risk assessment a) No falls within the last year [facility] [address] [place] Work Phone: Tobacco use status CPHS b) No [facility] [address] [place] Work Phone: [phone] Blood Pressure Cuff Size Adult [facility] [address] [place] Work Phone: Electrocardiogram 12 Leadon 09-09-2021 Electrocardiogram 12 Lead Ventricular Rate 74 Atrial Rate 74 P-R Interval 122 QRS Duration 162 Q-T Interval 428 QTC Calculation(Bazett) 475 P Howe 64 R Howe 78 T Howe -58 QRS Count 12 Q Onset 196 P Onset 135 P Offset 189 T Offset 410 QTC Fredericia 459 Diagnosis Class Borderline Abnormal Diagnosis Electronic ventricular pacemaker When compared with ECG of 06-OCT-2020 02:28, Vent. rate has increased BY 3 BPM Confirmed by Jayce Calderon ([id number]) on 09/09/2021 4:22:17 PM Normal [facility] No Panel Informationon 09-09 [email or web address] ?[id number]&Date =09-09-2021&Time=11%3a46% 3a49%3a00&TestType=ECG&Si te=1&OutputType=PDF&Ext=P DF [facility] [address] [place] Work Phone: [phone] Electronic ventricul ar pacemaker [facility] [address] [place] Work Phone: [phone] Borderline Abnormal [facility] [address] [place] Work Phone: [phone] 1 [facility] [address] [place] Work Phone: [phone] 1 [facility] [address] [place] Work Phone: [phone] 1 [facility] [address] [place] Work Phone: [phone] 1 [facility] [address] [place] Work Phone: [phone] 1 [facility] [address] [place] Work Phone: [phone] 1 [facility] [address] [place] Work Phone: [phone] [facility] [address] [place] Work Phone: [phone] 1 [facility] [address] [place] Work Phone: [phone] 1 [facility] [address] [place] Work Phone: [phone] 1 [facility] [address] [place] Work Phone: [phone] 1 [facility] [address] [place] Work Phone: [phone] 1 [facility] [address] [place] Work Phone: [phone] 1 [facility] [address] [place] Work Phone: [phone] [facility] [address] [place] Work Phone: Office Visit (Cardiac Surger y)on 09-09-2021 Follow-up visit Diagnoses/Problems Assessed Mitral regurgitation (424.0) (I34.0) severe, echo 12/2019 Tricuspid regurgitation (397.0) (I07.1) severe, echo December 2019 Provider Impressions # severe functional mitral regurgitation # Non-ischemic cardiomyopathy, HFrEF, s/p C[employer]ER [employer] INTERN-D Considering his cardiac comorbidities including severely reduced [...] proxy on file. History of Present Illness Travel Consultant: Dr. Diaz Canchola Patient is a pleasant 70 year-old male with previous medical history significant for hypertension, non-ischemic cardiomyopathy, s/p CUSTOMER EX[employer]IENCE INTERN-D, who was referred for evaluation of mitral [...] use Al (more content not included)... Normal [facility] Office Visit (Cardiology)on 09-09-2021 Follow-up visit [...] not enough food. History of Present Illness Travel Consultant: Dr. Diaz Canchola Patient is a pleasant 70 year-old male with previous medical history significant for hypertension, non-ischemic cardiomyopathy, s/p CUSTOMER EXPERIENCE INTERN-D, who was referred for evaluation of mitral and tricuspid regurgitation. Patient endorses progressively worsening dyspnea with minimal exertion (walking less than 1 block) and orthopnea. NYHA: Class 3 Frailty score: 0/5 EKG: pacing rhythm TTE: LVEF 20%, severe MR, severe TR, RVSP 54.5 mmHg LUCAS: LVEF 15-20%, severe MR with central jet, severe TR [facility] (): normal coronaries Dental assessment: no significant [...] Normal Touchworks Transesophageal Echoon 08-21 Transesophageal Echo [facility] enter, [address] [place] [address] and TRANSESOPHAGEAL ECHOCARDIOGRAM REPORT Patient Name: CORKY Emerson Physician: [id number] Rupali DUENAS Study Date: 08/21/2021 Referring RODRIGO FROST Physician: MRN/PID: [id number] PCP: Accession/Order#: [id number] Department [facility] Non Location: Invasive Date of : 1950 Fellow: [id number] Hardik Valerio MD Gender: M Nurse: Verónica Nguyen RN Admission Status: Outpatient Additional Staff: Kelly Santoro RN Height: 167.64 cm CC Report to: Weight: 67.13 kg Study Type: Transesophageal Echo BSA: 1.76 m2 Blood Pressure: 101 /73 mmHg Diagnosis/ICD: I05.9-Mitral valve disorder Indication: Mitral regurgitation Procedure/CPT: LUCAS Complete-93206; Color Doppler-14202; Doppler Full-91102 Patient History: Drug Allergies: None Pacer/Defib: Permanent pacemaker Pertinent History: CKD, hypothyroid, pulmonary HTN, JOSEPH, orthopnea, MR/TR/, NSVT, LBBB, CUSTOMER EXPERIENCE INTERN-D, NICM, CHB, HTN. Study Detail: PHYSICIAN INTERPRETATION: [...] the prior exam , TTE from 07/18/2021 ([facility]) the LV systolic function was severely reduced [...] prior exam , TTE from 07/18/2021 ([facility]) the LV systolic function was severely reduced ( reported LVEF 20-25%) and there was moderate to severe MR. The LV leaflets were better visualized today. In addition there was alreaedy severe TR. 7. There is global hypokinesis of the left ventricle with minor regional variations. QUANTITATIVE DATA SUMMARY: [id number] Rupali Allred MD Electronically signed on 08/21/2021 at 3:40:01 PM Final Normal [facility] SARS-CoV-2 (COVID-19) RNA LACY+probe Ql (Unsp spec) Negative Normal Negative [facility] Comment on above: Order Comment: Healt hcare Worker?: N Result Comment: Testing for SARS-CoV-2 by RT-PCR This test was developed and its performance characteristics determined by [employer] (20x200) and validated at the [facility]. This test has not been FDA cleared [...] is terminated or revoked sooner. PERFORMED BY: [place] [address] PATHOLOGIST STOREHOUSE CLERK BAY THRASHER M.D. Performed By: #### C OVID 19 [facility] #### [address] COVID-19 Positive/NegativeOr dered By: Cristobal Garcia on 08-19-2021 SARS-CoV-2 (COVID-19) N gene LACY+probe Ql (Resp) Negative Negative [facility] Comment on above: Testing for SARS-CoV -2 by RT-PCR This test was developed and its performance characteristics determined by [employer] (BD) and validated at the [facility]. This test has not been FDA cleared [...] weight loss.; Status:Complete - Retrospective Authorization; Done: [id number] Eat a low fat and low cholesterol [...] family member to call with any updates [phone] Patient provided Falls Prevention education sheet. The [...] office visit. Personally paired pt?s device with iTherX pulse nabeel; troubleshooting of nabeel performed and called [employer] support for 20 minutes troubleshooting Normal cors by catheterization. Ejection fraction 30% by myocardial perfusion scanning 2019. LVEF20% by echo 2020. [place] [employer] Association 3C heart failure. Chronic. Stable. [...] Increase beta-block (more content not included)... Normal [employer] Tobacco Screening.on 022 Fall risk assessment b) One or more fall s in the last year [facility]-Elyri a 320 DO Work Phone: Tobacco use status CP b) No [facility]-Elyri a 320 DO Work Phone: Tobacco Screening. Yes [facility]-Elyri a 320 DO Work Phone: Transesophageal Echoon 08-02 Transesophageal Echo Please click on the link to view the study images Normal [facility]-E[facility]ri a 320 DO Work Phone: COVID-19 [facility] 07[facility] SARS-CoV-2 (COVID-19) RNA LACY+probe Ql (Unsp spec) Negative Normal Negative [facility] Comment on above: Order Comment: Healt hcare Worker?: N Result Comment: Testing for SARS-CoV-2 by RT-PCR This test was developed and its performance characteristics determined by [employer] (20x200) and validated at the [facility]. This test has not been FDA cleared [...] is terminated or revoked sooner. PERFORMED BY: [facility] [address] [place] [address] PATHOLOGIST STOREHOUSE CLERK BAY THRASHER M.D. Performed By: #### C OVID 19 [facility] ####[facility] [id number] [place] [address] [facility] COVID-19 Positive/NegativeOr dered By: Cristobal Garcia on 07-31-2021 SARS-CoV-2 (COVID-19) N gene LACY+probe Ql (Resp) Negative Negative [facility] Comment on above: Testing for SARS-CoV -2 by RT-PCRThis test was developed and its performance characteristics determined by [employer] (20x200) and validated at the [facility]. This test has not been FDA cleared [...] and its performance characteristics determined by [employer] (20x200) and validated at the [facility]. This test has not been FDA cleared [...] Instructions We will review blood work from [place] and call you with any abnormal results. Continue current medications as ordered. Follow up with [facility] AND Dr. Batista as scheduled. Call [phone] to schedule follow up with Dr. Canchola [...] for RFP/BNP/Dig. PMHx: HFrEF (LVEF 20%) s/p CUSTOMER EXPERIENCE INTERN-D 01/2020 ([facility] NICM/ valvular dx (severe [...] Oral Tablet (more content not included)... Normal [employer] Tobacco Screening.on Adult depression screening assessment No [facility] [address] [place] Work Phone: Fall risk assessment a) No falls within the last year [facility] [address] [place] Work Phone: Tobacco use [...] failure Brain Natriuretic Peptide BNP; Status:Active; Requested for:[id number]; Digoxin Level, Serum; Status:Active; Requested for:[id number]; Renal Function Panel; Status:Active; Requested for:[id number]; Patient Instructions To reach Dr. Canchola' office please call [phone] (Funmilayo). . Call [phone] to schedule an appointment. You may also contact the HF RNs at [email or web address] . 1) Increase entresto to 97/103 mg twice a day 2) Labs (RFP/BNP/dig level) 3) Follow up in 1 month at /[facility] with [facility]: [place], [place] Chief Complaint CORKY DUENAS is being seen for a 6 month follow-up of cardiomyopathy, heart failure and a routine medication evaluation. History of Present Illness Referring providers: Structural Heart Team Gen bar turner: Stephen ([facility]) EP: Lynne ([facility]) Mr. Duenas is a 70 y/o M with a PMHx sig for stage C/D systolic HF/NICM/HFrEF with severe LV dysfunction (LVEF 20-25%) s/p CUSTOMER EXPERIENCE INTERN-D with associated functional mitral regurgitation, hypothyroidism, and [...] dizziness a few weeks. He went to [place]. Reports full adherence to low sodium diet at home CUSTOMER EXPERIENCE INTERN-D was placed January [address] Mera Batista PMHx: stage C/D systolic HF/NICM/HFrEF with severe LV dysfunction (LVEF 20-25%) s/p CUSTOMER EXPERIENCE INTERN-D with associated functional mitral regurgitation, hypothyroidism, CKD SocHx: Lives in [place], [place] with mother (in her 80s), he [...] cancer. Denies other family history of CAD, ME, CHF, OHS, MCS or OHT Mother: DM, [...] daily Fur (more content not included)... Normal [facility] Tobacco Screening.on Fall risk assessment a) No falls within the last year [facility] [address] [place] Work Phone: Tobacco use status CPHS b) No [facility] [address] [place] Work Phone: Office Visit (Cardiology)on 11-12-2020 Follow-up visit Diagnoses/Problems Assessed ACC/AHA stage D heart failure (428.9) (I50.84) Mitral regurgitation (424.0) (I34.0) Nonischemic cardiomyopathy (425.4) (I42.8) Patient Instructions To reach Dr. Canchola' office please call [phone] (Funmilayo). . Call [phone] to schedule an appointment. You may also contact the HF RNs at . 1) Increase carvedilol to 12.5 mg twice a day 2) Follow up in 6 months at /[facility] Pharmacy: [place] Chief Complaint CORKY DUENAS is being seen for follow-up of a hospitalization for cardiomyopathy, heart failure and a routine medication evaluation. History of Present Illness Referring providers: Structural Heart Team Gen bar turner: Stephen ([facility] EP: Lynne ([facility]) Mr. Duenas is a 70 y/o M with a PMHx sig for stage D systolic HF/NICM/HFrEF with severe LV dysfunction (LVEF 20-25%) s/p CUSTOMER EXPERIENCE INTERN-D with associated functional mitral regurgitation, hypothyroidism, and [...] most days, weights have been around 136lbs. CUSTOMER EXPERIENCE INTERN-D was placed January [address] Mera Batista PMHx: stage D systolic HF/NICM/HFrEF with severe LV dysfunction (LVEF 20-25%) s/p CUSTOMER EXPERIENCE INTERN-D with associated functional mitral regurgitation, hypothyroidism, CKD SocHx: Lives in [place], [place] with mother (in her 80s), he is but remains in contact with his ex- and ex-brother in law. Two brothers also live with him and his mom. No pets. 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 Denies other family history of CAD, ME, CHF, OHS, MCS or OHT Mother: DM, [...] negative for (more content not included)... Normal [facility] - Hematology and Cell countson 10-08-2020 [...] Calcium [Mass/Vol] 8.6 mg/dL 8.6 - 10.6 MGRangespanRaman Adams Work Phone: Chloride [Moles/Vol] 105 mmol/L 98 - 107 MG- gabi Adams Work Phone: CO2 [Moles/Vol] 16 mmol/L below low threshold 21 - 32 MGJayla Adams Work Phone: Creatinine [Mass/Vol] 1.37 mg/dL above high threshold See Below Pedro Adams Work Phone: Comment on above: Reference Range: 0.5 0 - 1.30 Glucose [Mass/Vol] 95 mg/dL 74 - 99 [facility] jim Adams Work Phone: Phosphate [Mass/Vol] 3.8 [...] - 10.0 [facility] Alex Adams Work Phone: [phone] Neutrophils/100 WBC (Bld) 77.8 % See [...] 8.62 {x10E9/L} above high threshold See Below [facility] Work Phone: Comment on above: Reference Range: 1.2 0 - 7.70 Complete Blood Count + Differential 2.3 % 0.0 - 6.0 [facility] Work Phone: Complete Blood Count + Differential 0.6 % 0.0 - 0.9 [facility] Work Phone: Comment on above: Immature Granulocyte Count (IG) includes promyelocytes, myelocytes and metamyelocytes but does not include bands. Percent differential counts (%) should be interpreted in the context of the absolute cell counts (cells/L). Complete Blood Count + Differential 0.0 {/100_WBC} 0.0-0.0 [facility] Work Phone: Digoxin Level, Serumon 10-06 Digoxin [Mass/Vol] 0.96 ng/mL See Below [facility] CITY[facility] iciSt. Louis Children[facility] Hospitallas Adams Work Phone: Comment on above: Reference Range: 0.8 0 - 2.00 Laboratory - Chemistry and C hemistry - challengeon 10-06-2020 Albumin BCP dye [Mass/Vol] 3.7 g/dL 3.4 - 5.0 [facility] Work Phone: ALP [Catalytic activity/Vol] 66 U/L 33 - 136 [facility] Work Phone: ALT With P-5'-P [Catalytic activity/Vol] 12 U/L 10 - 52 [facility] Work Phone: Comment on above: Patients treated wit h Sulfasalazine may generate falsely decreased results for ALT. Anion gap [Moles/Vol] 17 mmol/L 10 - 20 [facility] Work Phone: AST With P-5'-P [Catalytic activity/Vol] [...] [Moles/Vol] 25 mmol/L 21 - 32 [facility] ma Alex Adams Work Phone: Creatinine [Mass/Vol] 1.59 mg/dL above high threshold See Below RangespanBhavesh Johnson Adams Work Phone: Comment on above: [...] 31.13 m[IU]/L above high threshold See Below RangespanBhavesh Johnson Adams Work Phone: Comment on above: Reference Range: 0.4 4 - 3.98 TSH testing is performed using different testing methodology at [facility] than at other [facility]. Direct result comparisons should only be made within the same method. Urea nitrogen [Mass/Vol] 41 mg/dL above high threshold 6 - 23 [facility] Work Phone: Magnesium, Serumon Magnesium [Mass/Vol] 2.74 mg/dL above high threshold See Below [facility] Work Phone: Comment on above: Reference Range: 1.6 0 - 2.40 No Panel Informationon 10-06 53 {mL/min/1.73m2} Abnormal >60 [facility] Work Phone: Comment on above: CALCULATIONS OF AYANA MATED GFR ARE PERFORMED USING THE MDRD STUDY EQUATION FOR THE IDMS-TRACEABLE CREATININE METHODS. CLIN CHEM 2007;53:[id number] 44 {mL/min/1.73m2} Abnormal >60 [facility] Work Phone: Radiologyon 10-06-2020 XR Ribs - bilateral 4 Views Normal [facility] Work Phone: T4 - Free Thyroxine, Serumon 10-06-2020 Free T4 [Mass/Vol] 1.09 ng/dL See Below [facility] Work Phone: Comment on above: Reference Range: 0.7 8 - 1.48 Thyroxine Free testing is performed using different testing methodology at [facility] than at other [facility]. Direct result comparisons should only be made within the same method. Troponin I, Serumon 10-07-19 21 Troponin I.cardiac [Mass/Vol] 0.02 ng/mL See Below [facility] Work Phone: Comment on above: Reference [...] is performed using different testing methodology at [facility] than at other [facility]. Direct result comparisons should only be [...] medication changes. PMHx: HFrEF (LVEF 20%) s/p CUSTOMER EXPERIENCE INTERN-D 01/2020 ([facility])/ NICM/ valvular dx (severe [...] Vital Signs Recorded: 28Sep2020 01:54PM Heart Rate80 [id number] [id number] (more content not included)... Normal [facility] PROGRESSon 09-01-2018 Protein mass conc HNO ID: [id number] Author: Deepa Daily Service: ? Author Type: Coating And Embossing Unit Operator Type: Progress Notes Filed: 09/01/2018 10:13 AM Note Text: POPULATION HEALTH COMMERCIAL TIRE SERVICE TECHNICIAN QUICKNOTE Provider Action/FYI: I spoke with Corky and he states he's no longer living in [place]. Removed pcp. Patient identified by name and . LARISA Leonard [facility] CNPTOUTREACHon 08-24-2018 CNPTOUTREA Patient Outreach (IN TMWS) ----- CORKY DUENAS ([id number]) 1950 M Date Time Provider Department 08/24/18 DEEPA DAILY ([facility]) INTMWS During your visit today, we [...] needed: Physical next available with pcp or study manager ? Consultation Appointments: n/a Labs, HM and Immunization: Health Maintenance Due: BP CONTROLLED (<130/80) due on 1970 ANNUAL PCP TEAM CHRONIC DISEASE VISIT due on 12/03/2016 PROSTATE CANCER SCREENING DISCUSSION due on 10/01/2017 ADULT PREVNAR-13 due on 2017 PNEUMOVAX AGE 65 AND OVER WITH 5YR LOOKBACK(1) due on 2017 LARISA Leonard CMA 09/01/2018 10:13 AM Signed POPULATION HEALTH COMMERCIAL TIRE SERVICE TECHNICIAN QUICKNOTE Provider Action/FYI: I spoke with Corky and he states he's no longer living in [place]. Removed pcp. Patient identified by name and [...] by DEEPA DAILY CMA on 09/01/18 Normal [facility] [place] PROGRESSon 08-24-2018 Protein mass conc HNO ID: [id number] Author: Deepa Daily Service: ? Author Type: Coating And Embossing Unit Operator Type: Progress Notes Filed: 09/01/2018 10:13 AM [...] needed: Physical next available with pcp or study manager ? Consultation Appointments: n/a Labs, HM and Immunization: Health Maintenance Due: BP CONTROLLED (<130/80) due on 1970 ANNUAL PCP TEAM CHRONIC DISEASE VISIT due on 12/03/2016 PROSTATE CANCER SCREENING DISCUSSION due on 10/01/2017 ADULT PREVNAR-13 due on 2017 PNEUMOVAX AGE 65 AND OVER WITH 5YR LOOKBACK(1) due on 2017 Deepa Daily CMA [facility] PROGRESSon 07-26-2018 Protein mass conc HNO ID: [id number] Author: Deepa Daily Service: ? Author Type: Coating And Embossing Unit Operator Type: Progress Notes Filed: 07/26/2018 9:16 AM Note Text: POPULATION [facility] COMMERCIAL TIRE SERVICE TECHNICIAN QUICKNOTE Provider Action/FYI: Letter mailed to patient. Patient identified by name and . 3rd attempt - vm box not set up. Mailing letter to patient. Deepa Daily CMA [facility] PROGRESSon 07-23-2018 Protein mass conc HNO ID: [id number] Author: Deepa Daily Service: ? Author Type: Coating And Embossing Unit Operator Type: Progress Notes Filed: 07/26/2018 9:16 AM Note Text: POPULATION [facility] COMMERCIAL TIRE SERVICE TECHNICIAN QUICKNOTE Provider Action/FYI: Patient identified by name and . 2nd attempt - mailbox full - unable to leave message on machine. Deepa Daily [facility] Protein mass conc HNO ID: [id number] Author: Deepa Daily Service: ? Author Type: Coating And Embossing Unit Operator Type: Progress Notes Filed: 07/26/2018 9:16 AM Note Text: POPULATION [facility] COMMERCIAL TIRE SERVICE TECHNICIAN QUICKNOTE Provider Action/FYI: Patient identified by name and . 1st attempt - mailbox full - unable to lmom. Deepa Daily CMA [facility] CNPTOUTREACHon 07-19-2018 CNPTOUTREACH Patient Outreach (IN TMWS) ----- CROKY DUENAS ([id number]) 1950 Date Time Provider Department 07/19/18 DEEPA [...] office visit:Physical next available with pcp or study manager LARISA Leonard CMA 07/26/2018 9:16 AM Signed [facility] Provider Action/FYI: Patient identified by name and . 1st attempt - mailbox full - unable to lmom. LARISA Leonard CMA 07/26/2018 9:16 AM Signed [facility] Provider Action/FYI: Patient identified by name and . 2nd attempt - mailbox full - unable to leave message on machine. LARISA Leonard CMA 07/26/2018 9:16 AM Signed [facility] Provider Action/FYI: Letter mailed [...] Status:Closed by DEEPA DAILY CMA on 07/26/18 [facility] PROGRESSon 07-19-2018 Protein mass conc HNO ID: [id number] Author: Deepa Daily Service: ? Author Type: Coating And Embossing Unit Operator Type: Progress Notes Filed: 07/26/2018 9:16 AM Note Text: [facility] CARE GAP REGISTRY DOCUMENTATION [...] office visit:Physical next available with pcp or study manager Deepa Daily CMA Normal [facility] PROGRESSon 03-16-2018 Protein mass conc HNO ID: [id number] Author: Deepa Daily Cma Service: (none) Author Type: (none) Type: Progress Notes Filed: 03/16/2018 10:03 AM Note Text: Letters mailed to patient. [facility] Protein mass conc HNO ID: [id number] Author: Deepa Daily Cma Service: (none) Author Type: (none) Type: Progress Notes Filed: 03/16/2018 10:03 AM Note Text: Mailbox full - unable to lmom 3rd attempt - mailing letter. [facility] PROGRESSon 03-10-2018 Protein mass conc HNO ID: [id number] Author: Deepa Daily Cma Service: (none) Author Type: (none) Type: Progress Notes Filed: 03/16/2018 10:03 AM Note Text: Mailbox full - unable to leave a message. I will try once more and send a letter if unsuccessful. [facility] Protein mass conc HNO ID: [id number] Author: Deepa Daily Cma Service: (none) Author Type: (none) Type: Progress Notes Filed: 03/16/2018 10:03 AM Note Text: Mailbox full - unable to leave a message. I will try back later. Normal [facility] Protein mass conc HNO ID: [id number] Author: Deepa Daily [employer] Professor Service: (none) Author Type: (none) Type: Progress [...] and date of . Team: Dr. Tracy iLra ? Last Office Visit:Visit date not found [...] needed: Physical next available with PCP or study manager ? Consultation Appointments: n/a Labs, HM and Immunization: Health Maintenance Due: ANNUAL PCP TEAM CHRONIC DISEASE VISIT due on 1970 BP CONTROLLED (<130/80) due on 1970 ADULT PREVNAR-13 due on 2017 PNEUMOVAX AGE 65 AND OVER WITH 5YR LOOKBACK(1) due on 2017 INFLUENZA(1) due on 12/05/2017 Deepa Daily [employer] Professor Normal [facility] CNPTOUTREACHon 03-09-2018 [facility] Patient Outreach (IN TMWS) ----- CORKY DUENAS ([id number]) 1950 M Date Time Provider Department 03/09/18 DEEPA DAILY ([facility]) INTMWS During your visit today, we recorded the following information about you: Deepa Daily [facility] 03/16/2018 10:03 AM Signed PHMA TEAMLET [...] needed: Physical next available with PCP or study manager ? Consultation Appointments: n/a Labs, HM and Immunization: Health Maintenance Due: ANNUAL PCP TEAM CHRONIC DISEASE VISIT due on 1970 BP CONTROLLED (<130/80) due on 1970 ADULT PREVNAR-13 due on 2017 PNEUMOVAX AGE 65 AND OVER WITH 5YR LOOKBACK(1) due on 2017 INFLUENZA(1) due on 12/05/2017 [facility] 03/16/2018 10:03 AM Signed Mailbox full - unable to leave a message. I will try back later. [facility] 03/16/2018 10:03 AM Signed Mailbox full - unable to leave a message. I will try once more and send a letter if unsuccessful. [facility] 03/16/2018 10:03 AM Signed Mailbox full - unable to lmom 3rd attempt - mailing letter. [facility] 03/16/2018 10:03 AM Signed Letters mailed to patient. Allergies As of Date: 03/09/2018 (No Known Allergies) Date Reviewed: 12/05/2015 Reviewed by: Jacqueline Felix Ma - Fully Assessed Reason for Visit: PHMA/Care Gap Outreach [9065] Prescriptions as of 03/09/2018 Sig: AMLODIPINE 10 [...] disease [Z82.4*INVALID FOR* Letter Text Internal Medicine [place] [address] [facility] [address] Dept: [phone] Dept [facility], Population Health M.A. March 16, 2018 Corky Duenas [address] [place] [id number] Dear Layne Marcio In an effort to serve your healthcare needs, it has come to the attention of Lorena Crooks MD, your Primary Care Provider, that you are overdue for routine health care. We've attempted to contact you and have been unsuccessful. Please call the office at [phone] to schedule an appointment for Physical. In [...] have that office fax the results to [phone] Attn: Lorena Crooks MD or bring the records with you to your appointment. We will gladly update your record. If you have any questions, please feel free to call the office at [phone] or message us via Met[employer]. Thank you for choosing the [facility]. Sincerely, Deepa Daily Cma Population Health M.Altagracia (electronically signed to expedite mailing) Letter Text Lorena Crooks MD Department of Internal Medicine [address] [place], [place] [id number] Corky Chua Marcio [id number] [place] [id number] 03/16/2018 Dear Davidemile: Our records indicate that [...] our records. The main telephone number is [phone]. Best Regards, The office staff of Lorena Crooks MD Encounter Status:Closed by DEEPA DAILY CMA on 03/16/18 Normal [facility] Vital Signs Date Time Vital Sign Value Performing Clinician Facility 02-24-2022 14:43-0500 Diastolic blood pressure 59 mm[Hg] II Juan Manuel Albarran Work Phone: [facility] 02-24-2022 14:43-0500 Heart rate 68 /min CRISTOBAL Albarran Work Phone: [facility] 02-24-2022 14:43-0500 Respiratory rate 16 /min II Juan Manuel Albarran Work Phone: [facility] 02-24-2022 14:43-0500 SaO2% (BldA) [Mass fraction] 96 % II Juan Manuel Albarran Work Phone: [facility] 02-24-2022 14:43-0500 Systolic blood pressure 99 mm[Hg] II Juan Manuel Albarran Work Phone: [facility] 02-24-2022 14:13-0500 Inhaled oxygen flow rate 6 L/min II Juan Manuel Albarran Work Phone: [facility] 02-24-2022 12:24-0500 Body height 167.64 cm II Juan Manuel Albarran Work Phone: [facility] 02-24-2022 12:24-0500 Body mass index (BMI) [Ratio] 22.5 kg/m2 II Juan Manuel Albarran Work Phone: [facility] 02-24-2022 12:24-0500 Body weight 63.3 kg II Juan Manuel Albarran Work Phone: [facility] 02-24-2022 10:32-0500 Body temperature 97.8 [degF] II Juan Manuel Albarran Work Phone: [facility] 01-15-2022 20:43-0400 Diastolic blood pressure 76 mm[Hg] II Juan Manuel Albarran Work Phone: [facility] 01-15-2022 20:43-0400 Heart rate 67 /min II Juan Manuel Albarran Work Phone: [facility] 01-15-2022 20:43-0400 Respiratory rate 20 /min II Juan Manuel Albarran Work Phone: [facility] 01-15-2022 20:43-0400 SaO2% (BldA) [Mass fraction] 97 % II Juan Manuel Albarran Work Phone: [facility] 01-15-2022 20:43-0400 Systolic blood pressure 145 mm[Hg] II Juan Manuel Albarran Work Phone: [facility] 01-15-2022 16:42-0400 Body height 167.64 cm II Juan Manuel Albarran Work Phone: [facility] 01-15-2022 16:42-0400 Body temperature 98.2 [degF] II Juan Manuel Albarran Work Phone: [facility] 01-15-2022 16:42-0400 Body weight 62 kg II Juan Manuel Albarran Work Phone: [facility] 10-31-2021 10:49-0400 Body temperature 37.0 {degrees_C} Cristobal Garcia MD Work Phone: MS-Pvgeakpzip-QMN [facility] [address] [place] Work Phone: Comment on above: NOTE: PATIENT RESULTS ARE NOT CORRECTED FOR TEMPERATURE. 10-31-2021 10:49-0400 SaO2% (BldA) [Mass fraction] 99 % Cristobal Garcia MD Work Phone: SM-Bcqvsnzyqz-EDE [facility] [address] [place] Work Phone: 09-09-2021 11:51-0400 Body height 167.64 cm Cristobal Garcia MD Work Phone: YW-Hwsmbtsxad-HZZ [facility] [address] [place] Work Phone: 09-09-2021 11:51-0400 Body mass index (BMI) [Ratio] 23.27 kg/m2 Cristobal Garcia MD Work Phone: UF-Yernjagscf-RLK [facility] [place] Work Phone: 09-09-2021 11:51-0400 Body surface area Derived from formula 1.74 m2 Cristobal Garcia MD Work Phone: IA-Vtljwflevd-RLH [facility] [address] [place] Work Phone: 09-09-2021 11:51-0400 Body weight 65.4 kg Cristobal Garcia MD Work Phone: CG-Sjglnqcnyd-GLY [facility] [address] [place] Work Phone: 09-09-2021 11:51-0400 Diastolic blood pressure 74 mm[Hg] Cristobal Garcia MD Work Phone: MU-Trmmqkbrsb-UHJ [facility] [address] [place] Work Phone: 09-09-2021 11:51-0400 Heart rate 74 /min Cristobal Garcia MD Work Phone: GV-Jqtmklskal-RGA [facility] [address] [place] Work Phone: 09-09-2021 11:51-0400 SaO2% (BldA) [Mass fraction] 100 % Cristobal Garcia MD Work Phone: OG-Eaovlssbgg-LWZ [facility] [address] [place] Work Phone: 09-09-2021 11:51-0400 Systolic blood pressure 109 mm[Hg] Cristobal Garcia MD Work Phone: LR-Dfgbilfkjm-DMJ [facility] [address] [place] Work Phone: 09-09-2021 11:51-0400 0 1 Cristobal Garcia MD Work Phone: PK-Pfaaupqsdd-KCI [facility] [address] [place] Work Phone: Comment on above: [employer] 08-13-2021 12:48-0400 Body height 167.64 cm Mera Batista MD Work Phone: [facility] [address] [place] Work Phone: 08-13-2021 12:48-0400 Body mass index (BMI) [Ratio] 24.53 kg/m2 Mera Batista MD Work Phone: [facility] [address] [place] Work Phone: 08-13-2021 12:48-0400 Body surface area Derived from formula 1.78 m2 Mera Batista MD Work Phone: [facility] [address] [place] Work Phone: 08-13-2021 12:48-0400 Body weight 68.95 kg Mera Batista MD Work Phone: [facility] [address] [place] Work Phone: 08-13-2021 12:48-0400 Diastolic blood pressure 58 mm[Hg] Mera Batista MD Work Phone: [facility] [address] [place] Work Phone: 08-13-2021 12:48-0400 Heart rate 104 /min Mera Batista MD Work Phone: [facility] [address] [place] Work Phone: 08-13-2021 12:48-0400 Systolic blood pressure 102 mm[Hg] Mera Batista MD Work Phone: [facility] [address] DO Work Phone: 07-18-2021 14:00-0400 20 1 [id number] [facility] ULTRASOUND 01 Work Phone: [facility] Work Phone: Comment on above: [id number] 06-21-2021 09:53-0400 Body height 167.64 cm Kelly Blume [employer] ADMINISTRATOR-MANAGER TEST Work Phone: NL-Rgxdunxbmu-LQH [facility] [address] [place] Work Phone: 06-21-2021 09:53-0400 Body mass index (BMI) [Ratio] 23.89 kg/m2 Kelly Blume [employer]ICATION[employer] ADMINISTRATOR-MANAGER TEST Work Phone: XW-Ewgmgmjfjb-EIY [facility] [address] [place] Work Phone: 06-21-2021 09:53-0400 Body surface area Derived from formula 1.76 m2 Kelly Blume [employer]ICATIONS ADMINISTRATOR-MANAGER TEST Work Phone: MQ-Drsbbjlomw-QFX [facility] [address] [place] Work Phone: 06-21-2021 09:53-0400 Body weight 67.13 kg Kelly Blume [employer]ICATION[employer] ADMINISTRATOR-MANAGER TEST Work Phone: AI-Xssephwgxt-SIN [facility] [address] [place] Work Phone: 06-21-2021 09:53-0400 Diastolic blood pressure 82 mm[Hg] Kelly Blume [employer] ADMINISTRATOR-MANAGER TEST Work Phone: PC-Drjtrbvzrl-ZWO [facility] [address] [place] Work Phone: 06-21-2021 09:53-0400 Heart rate 94 /min Kelly Blume [employer]ICATIONS ADMINISTRATOR-MANAGER TEST Work Phone: LW-Ptgtpssqph-TZH [facility] [address] [place] Work Phone: 06-21-2021 09:53-0400 SaO2% (BldA) [Mass fraction] 98 % Kelly Blume [employer]ICATIONS ADMINISTRATOR-MANAGER TEST Work Phone: QE-Jkasjwnqla-LAT [facility] [address] [place] Work Phone: 06-21-2021 09:53-0400 Systolic blood pressure 114 mm[Hg] Kelly Blume [employer]ICATIONS ADMINISTRATOR-MANAGER TEST Work Phone: ML-Pbzgoglytt-OKI [facility] [address] [place] Work Phone: 05-20-2021 13:38-0500 Body height 167.64 cm Diaz Canchola DO Work Phone: EP-Dkqxivoxca-VVS [facility] [address] [place] Work Phone: 05-20-2021 13:38-0500 Body mass index (BMI) [Ratio] 23.4 kg/m2 Diaz Canchola DO Work Phone: UN-Mqqddgrosh-GGJ [facility] [address] [place] Work Phone: 05-20-2021 13:38-0500 Body surface area Derived from formula 1.74 m2 Diaz Canchola DO Work Phone: LG-Vikcoukucz-VSR [facility] [address] [place] Work Phone: 05-20-2021 13:38-0500 Body weight 65.77 kg Diaz Canchola DO Work Phone: KM-Liglyaqxkw-NZU [facility] [address] [place] Work Phone: 05-20-2021 13:38-0500 Diastolic blood pressure 78 mm[Hg] Diaz Canchola DO Work Phone: RG-Kaikrmtfma-ZWE [facility] [address] [place] Work Phone: 05-20-2021 13:38-0500 Heart rate 96 /min Diaz Canchola DO Work Phone: LE-Egqxehfhhh-QVB [facility] [address] [place] Work Phone: 05-20-2021 13:38-0500 SaO2% (BldA) [Mass fraction] 99 % Diaz Canchola DO Work Phone: CD-Gdtsdoppqu-LXL [facility] [address] [place] Work Phone: 05-20-2021 13:38-0500 Systolic blood pressure 130 mm[Hg] Diaz Canchola DO Work Phone: IY-Julcqyectn-NOB [facility] [address] [place] Work Phone: 09-28-2020 13:54-0400 Body height 167.64 cm Kelly Blume [employer]ICATIONS ADMINISTRATOR-MANAGER TEST Work Phone: IU-Kbzlondphf-LPE [facility] [address] [place] Work Phone: 09-28-2020 13:54-0400 Body mass index (BMI) [Ratio] 22.92 kg/m2 Kelly Blume [employer]ICATION[employer] ADMINISTRATOR-MANAGER TEST Work Phone: BI-Zfzahqnmym-SQR [facility] [address] [place] Work Phone: 09-28-2020 13:54-0400 Body surface area Derived from formula 1.73 m2 Kelly Blume [employer]ICATIONS ADMINISTRATOR-MANAGER TEST Work Phone: HM-Aaeixgdzcy-VXP [facility] [address] [place] Work Phone: 09-28-2020 13:54-0400 Body weight 64.41 kg Kelly Blume [employer]ICATIONS ADMINISTRATOR-MANAGER TEST Work Phone: IT-Tskmgbhuux-BPY [facility] [address] [place] Work Phone: 09-28-2020 13:54-0400 Diastolic blood pressure 88 mm[Hg] Kelly Blume [employer]ICATIONS ADMINISTRATOR-MANAGER TEST Work Phone: MA-Oogzamaefa-SCD [facility] [address] [place] Work Phone: 09-28-2020 13:54-0400 Heart rate 80 /min Kelly Blume [employer]ICATIONS ADMINISTRATOR-MANAGER TEST Work Phone: ND-Abhiuodull-VRV [facility] [address] [place] Work Phone: 09-28-2020 13:54-0400 SaO2% (BldA) [Mass fraction] 98 % Kelly Blume [employer] ADMINISTRATOR-MANAGER TEST Work Phone: TS-Xlcvymclzp-XBY [facility] [address] [place] Work Phone: 09-28-2020 13:54-0400 Systolic blood pressure 140 mm[Hg] Kelly Blume [employer]ICATIONS ADMINISTRATOR-MANAGER TEST Work Phone: HC-Qadqlbxfrb-XXC [facility] [address] [place] Work Phone: Encounters Encounter Date Encounter Type Care Provider Facility Start: 04-27-2023 End: 04-27-2023 ambulatory DAYTON RUIZ Not Available Start: 04-16-2023 End: 04-16-2023 ambulatory JUAN MANUEL ALBARRAN Not Available Start: 03-23-2023 End: 03-23-2023 ambulatory JUAN MANUEL ALBARRAN Not Available Start: 03-16-2023 End: 03-16-2023 ambulatory JUAN MANUEL ALBARRAN Not Available Start: 02-04-2023 End: 02-05-2023 ambulatory MERA Smith [facility] Start: 02-04-2023 End: 02-04-2023 Subsequent hospital visit by physician Li Lai [facility] Comment on above: AICD (automatic card ioverter/defibrillator) present; Congestive cardiomyopathy (CMS/HCC) Start: 12-16-[address] Juan Manuel Albarran II Facility:[id number] Start: 11-20-[address] Juan Manuel Albarran II Facility:9507 Start: 11-09-[address] Juan Manuel Albarran II Facility:9507 Start: 10-16-[address] Juan Manuel Albarran II Facility:9507 Start: 08-21-2022 Message Juan Manuel Albarran Work Phone: [facility] Work Phone: Start: 08-19-2022 ambulatory MD [...] Albarran II Facility:9507 Start: 03-26-[address] JuanM anuel Albarran II Facility:9507 Start: 03-16-[address] Juan Manuel Albarran II Facility:9507 Start: 03-14-2022 End: 03-14-2022 ambulatory Beau Goldberg Facility:[facility] Start: 03-14-2022 End: 03-14-2022 ambulatory II Juan Manuel Deion Work Phone: [facility] Work Phone: Start: 03-14-2022 End: 03-14-2022 Patient encounter procedure II Juan Manuel Albarran Work Phone: [facility]-CT Scan [facility] [place] Start: 03-12-[address] Juan Manuel Albarran II Facility:9507 Start: 03-11-[address] Juan Manuel Albarran II Facility:9507 Start: 03-10-[address] Juan Manuel Albarran II Facility:9507 Start: 03-05-[address] Juan Manuel Albarran II Facility:9507 Start: 02-24-2022 End: 02-24-2022 ambulatory Beau Goldberg Facility:[facility] Start: 02-24-2022 End: 02-24-2022 Admission to same day surgery center II Juan Manuel Albarran Work Phone: [facility]-Surgery Center [facility] [place] Start: 02-24-2022 End: 02-24-2022 ambulatory II Juan Manuel Albarran Work Phone: [facility] Work Phone: Start: 02-24-[address] Juan Manuel Albarran II Facility:9507 Start: 02-20-2022 End: 02-20-2022 ambulatory Beau Goldberg Facility:[facility] Start: 02-20-2022 End: 02-20-2022 ambulatory II Juan Manuel Albarran Work Phone: [facility] Work Phone: Start: 02-20-2022 End: 02-20-2022 Patient encounter procedure II Juan Manuel Albarran Work Phone: [facility] Lxv-Fql-Kfytjpzt Testing Start: 02-11-2022 End: 02-12-2022 ambulatory ERI ROCHA Facility:H1 Start: 01-15-2022 End: 01-15-2022 Emergency department patient visit Marc Rosario Facility:[facility] Start: 01-15-2022 End: 01-15-2022 Emergency department patient visit CRISTOBAL Juan Manuel Albarran Work Phone: [facility]-Emergency Room Start: 01-06-2022 End: 01-08-[address] JUAN MANUEL ALBARRAN Facility:H1 Start: 11-18-2021 Chart Update Cristobal rhodes MD Work Phone: HV-Ugmcnfuwhy-XKO [facility] [address] [place] Work Phone: Start: 11-14-2021 AUDIT Provider Jessi vann Work Phone: [facility] Work Phone: Start: 11-14-2021 End: 11-14-2021 Evaluation and management of inpatient Cristobal Attizzani [facility] Rm 08 Start: 11-01-2021 AUDIT Cristobal rhodes MD Work Phone: PJ-Xptmbrrvir-VGB [facility] [address] [place] Work Phone: Start: 10-31-2021 ambulatory CRISTOBAL ATTIZZANI Fac ility:[facility] Start: 10-31-2021 ambulatory CRISTOBAL ATTIZZANI Fac ility:[facility] Start: 10-31-2021 Encounter for blood typing CRISTOBAL ATTIZZANI [facility] Start: 10-31-2021 Encounter for other preprocedural examination CRISTOBAL ATTIZZANI [facility] Start: 10-31-2021 Encounter for preprocedural laboratory examination CRISTOBAL ATTIZZANI [facility] Start: 10-31-2021 Patient encounter procedure Corky Hassan Work Phone: MG-Pulm Sleep-PFT G[place] Chan Work Phone: Start: 10-31-2021 ambulatory CRISTOBAL ATTIZZANI Fac ility:[facility] Start: 09-24-2021 AUDIT Lissa Spears [employer] COMM[employer]ICATIONS ADMINISTRATOR -MANAGER TEST Work Phone: GF-Bwrdrcvkem-PVT [facility] [address] [place] Work Phone: Start: 09-17-2021 Chart Update Andrea Moscoso Work Phone: JU-Mgumlripjd-VVU [facility] [address] [place] Work Phone: Start: 09-09-2021 ambulatory CRISTOBAL ATTIZZANI Fac ility:[facility] Start: 09-09-2021 Office consultation new/estab patient 80 min Manish Ojeda MD Work Phone: MG-CT Surgery-[facility] [address] Work Phone: Start: 09-09-2021 Current tobacco non- user cad cap copd pv apolinar Garcia MD Work Phone: GP-Mzjzrvefhc-HHV [facility] [address] [place] Work Phone: Start: 08-30-2021 AUDIT Diaz june DO Work Phone: KB-Jimkusqlal-ZIE [facility] [address] [place] Work Phone: Start: 08-21-2021 LUCAS, Provider: ARVIN ROOM C,MG CARD, Status: Pen, Time: 1:00 PM Cristobal Garcia MD Work Phone: DP-Yhnhepofmc-ZGG [facility] [address] [place] Work Phone: Start: 08-21-2021 ambulatory Juan Manuel Albarran II Facility:[facility] Start: 08-19-2021 End: 08-19-2021 ambulatory Cristobal Garcia Facility:[facility] Start: 08-19-2021 End: 08-19-2021 Patient encounter procedure II Juan Manuel Albarran Work Phone: [facility] Swab Start: 08-13-2021 Current tobacco non- user cad cap copd pv apolinar Batista MD Work Phone: [facility] [address] DO Work Phone: Start: 07-31-2021 End: 07-31-2021 ambulatory Cristobal Garcia Facility:[facility] Start: 07-31-2021 End: 07-31-2021 Patient encounter procedure II Juan Manuel Albarran Work Phone: [facility] COVID Testing Start: 07-23-2021 AUDIT Cristobal rhodes MD Work Phone: BJ-Tcfuhaxsar-CUT [facility] [address] [place] Work Phone: Start: 07-22-2021 AUDIT Lissa Spears [employer] COMMUNICATIONS ADMINISTRATOR -MANAGER TEST Work Phone: LT-Avieyxetzj-BIH [facility] [address] [place] Work Phone: Start: 07-19-2021 Chart Update Diaz june DO Work Phone: EP-Fdlmuxwbmk-MDO [facility] [address] [place] Work Phone: Start: 07-18-2021 Patient encounter procedure [id number] [facility] ULTRASOUND 01 Work Phone: [facility] Work Phone: Start: 06-26-2021 AUDIT Diaz june DO Work Phone: NP-Zcgiihkrzz-RAR [facility] [address] [place] Work Phone: Start: 06-21-2021 Office outpatient vi sit 15 minutes Kelly Blume [employer] COMMUNICATIONS ADMINISTRATOR-MANAGER TEST Work Phone: QL-Zrkkjhlqqo-LOR [facility] [address] [place] Work Phone: Start: 05-20-2021 Office outpatient vi sit 25 minutes Diaz Canchola DO Work Phone: FZ-Bgbgeqvhzh-Muybjl ke SJW 260 DO Work Phone: Start: 05-20-2021 Patient encounter procedure Diaz Canchola DO Work Phone: BK-Lmlyhxugje-WGJ [facility] [address] [place] Work Phone: Start: 10-17-2020 AUDIT Kelly Ruth [employer] COMMUNICATIONS ADMINISTRATOR-MANAGER TEST Work Phone: GZ-Susbohetdp-BXP [facility] [address] [place] Work Phone: Start: 10-08-2020 JOAQUÍN Moscoso Work Phone: ZQ-Nirbrylu-Dnyhzrv [place] Work Phone: Start: 10-01-2020 Telephone encounter Kelly Bl ume [employer] COMMUNICATIONS ADMINISTRATOR-MANAGER TEST Work Phone: YZ-Flohrybskr-EUT [facility] [address] [place] Work Phone: Start: 09-28-2020 Office outpatient vi sit 25 minutes Kelly Blume [employer] COMMUNICATIONS ADMINISTRATOR-MANAGER TEST Work Phone: TR-Jtjndjvqfe-SAD [facility] [address] [place] Work Phone: Procedures [...] on above: Performed By: #### T+S #### [facility] [address] [place] [address] Start: 08-05-2021 Follow-up visit Start: 07-18-2021 Echocardiography Diaz Canchola DO Work Phone: Start: 10-06-2020 Thyrotropin [Units/volume] in Serum or Plasma Li Remote Appendectomy Kelly Garciaume [employer] COMM[employer]ICATIONS ADMINISTRATOR-MANAGER TEST Work Phone: Cardiac catheterization Barber Canchola DO Work Phone: Cholecystectomy Kelly Bandar e [employer]ICATIONS ADMINISTRATOR-MANAGER TEST Work Phone: Insertion of pacemak er pulse generator Diaz Patinorias DO Work Phone: Insertion of pulse g enerator of implantable cardioverter defibrillator Kelly Blpiedad [employer]ICATIONS ADMINISTRATOR-MANAGER TEST Work Phone: Comment on above: Bivent ICD placed 01/2020; Removal of internal cardiac defibrillator Diaz Patinorias DO Work Phone: SARS Antigen (LFIA) II Royal kim Albarran Work Phone: Tonsillectomy and adenoidectomy Kelly Blume [employer] COMMUNICATIONS ADMINISTRATOR-MANAGER TEST Work Phone: Total colonoscopy Diaz hammond DO Work Phone: Plan of Treatment Date Care Activity Detail Author Start: 01-22-2028 Lipid panel Lipid Panel [facility] Start: 03-09-2023 Zoster Vaccines (2 of 2) Zoste r Vaccines (2 of 2) [facility] Start: 02-20-2023 FUV, Provider: Mera Batista, Status: Pen, Time: 1:20 PM FUV, Provider: Mera Batista, Status: Pen, Time: 1:20 PM [facility] Work Phone: Start: 02-20-2023 Patient encounter procedure FUVPACEMKR, Provider: [facility],EMCPKLAUS, Status: Pen, Time: 12:20 PM [facility] Work Phone: Start: 02-20-2023 End: 02-20-2023 Patient encounter procedure [facility] Start: 11-14-2022 Patient encounter procedure Outpatient Cardiology [place] [id number] Start: 14-Nov-2022 10:[address] [facility] Start: 11-14-2022 KRISTIN, Provider : Lissa Spears, Status: Pen, Time: 10:30 AM VIRFUVCHILOE, Provider: Lissa Spears, Status: Pen, Time: 10:30 AM LL-Tztykexjwg-WAK [facility] [address] [place] Work Phone: Start: 10-31-2022 Creatinine measurement Creatinine Le cristine [facility] Start: 10-31-2022 Potassium measurement Potassium Valerie l [facility] Start: 10-01-2022 DTaP/Tdap/Td Vaccine s (2 - Td or Tdap) DTaP/Tdap/Td Vaccines (2 - Td or Tdap) [facility] Start: 08-19-2022 FUV, Provider: Mera Batista, Status: Pen, Time: 2:00 PM FUV, Provider: Mera Batista, Status: Pen, Time: 2:00 PM [facility] 320 DO Work Phone: Start: 08-19-2022 Patient encounter procedure Outpatient [facility] Start: 19-Aug-2022 14:00 Mera Batista Intent [facility] [place] Start: 07-18-2022 Echocardiography Echocardiogram [facility] Start: 02-24-2022 [facility] Start: 02-24-2022 [facility] Start: 02-18-2022 FUV, Provider: Randee Perdomo, Status: Pen, Time: 1:00 PM FUV, Provider: Randee Perdomo, Status: Pen, Time: 1:00 PM [facility] 320 DO Work Phone: Start: 02-18-2022 Patient encounter [facility] [place] Start: 12-19-2021 Patient encounter procedure [facility] [place] Start: 12-19-2021 VIRFUVHOME, Provider : Josef Rush, Status: Pen, Time: 10:30 AM VIRFUVHOME, Provider: Josef Rush, Status: Pen, Time: 10:30 AM FE-Maipynyzfu-QBO [facility] [address] [place] Work Phone: Start: 12-19-2021 VIRFUVHOME, Provider : Lissa Spears, Status: Pen, Time: 10:30 AM VIRFUVHOME, Provider: Lissa Spears, Status: Pen, Time: 10:30 AM MG-Pulm Sleep-PFT [place] 6 Work Phone: Start: 11-21-2021 Patient encounter procedure [facility] [place] Start: 11-21-2021 VIRFUREID, Provider : Lissa Spears, Status: Pen, Time: 11:00 AM VIRFUREID, Provider: Lissa Spears, Status: Pen, Time: 11:00 AM SX-Kgaqahskop-GTX [facility] [address] [place] Work Phone: Start: 11-15-2021 End: 11-16-2022 [facility] Start: 11-14-2021 Patient encounter procedure FUVPACEMKR, Provider: [facility],EMCPKLAUS, Status: Pen, Time: 12:20 PM YG-Xodczjpfpg-RAV [facility] [address] [place] Work Phone: Start: 11-14-2021 End: 11-15-2022 [facility] Comment on above: for patients 120 kg [...] RM 2,PULM, Status: Pen, Time: 11:30 AM PC-Cdwhzdgdlf-DFX [facility] [address] [place] Work Phone: Start: 10-31-2021 ABG, Provider: JESUS SALINAS 6TH FLR PFT RM 2,PULM, Status: Pen, Time: 11:15 AM ABG, Provider: JESUS MESSER 6TH FLR PFT RM 2,PULM, Status: Pen, Time: 11:15 AM GU-Gydgwiexdu-DDH [facility] [address] [place] Work Phone: Start: 10-31-2021 PST, Provider: [facility] Jaki SALINAS [address] FLR PFT [address],PULM, Status: Pen, Time: 10:45 AM PST, Provider: JESUS MESSER [address]TH FLR PFT [address],PULM, Status: Pen, Time: 10:45 AM JX-Cgwhteftja-LZH [facility] [address] [place] Work Phone: Start: 10-06-2021 Thyroid stimulating hormone measurement TSH Level [facility] Start: 09-09-2021 NPVTAVR, Provider: Manish Ojeda, Status: Pen, Time: 11:30 AM NPVTAVR, Provider: Manish Ojeda, Status: Pen, Time: 11:30 AM [facility] [address] DO Work Phone: Start: 09-09-2021 NPVVALVECL, Provider : Cristobal Garcia, Status: Pen, Time: 11:00 AM NPVVALVECL, Provider: Cristobal Garcia, Status: Pen, Time: 11:[address] [facility]-[place] [facility] DO Work Phone: Start: 08-21-2021 LUCAS, Provider: SUZANNEEC HO ROOM C,MG CARD, Status: Pen, Time: 1:00 PM LUCAS, Provider: SUZANNEECHO ROOM C,MG CARD, Status: Pen, Time: 1:[address] [facility]-[place] [address] DO Work Phone: Start: 08-13-2021 FUV, Provider: Mear Batista, Status: Pen, Time: 12:40 PM FUV, Provider: Mera Batista, Status: Pen, Time: 12:40 PM BH-Pckwhjvcak-PEN [facility] [address] [place] Work Phone: Start: 08-13-2021 Patient encounter procedure FUVPACEMKR, Provider: [facility],EMCPACEMKR, Status: Pen, Time: 11:40 AM TR-Mmvbasmjcw-JRG [facility] [address] [place] Work Phone: Start: 08-05-2021 NPVTAVR, Provider: Manish Ojeda, Status: Pen, Time: 11:00 AM NPVTAVR, Provider: Manish Ojeda, Status: Pen, Time: 11:00 AM [facility] Work Phone: Start: 08-05-2021 NPVVALVECL, Provider : Cristobal Garcia, Status: Pen, Time: 10:30 AM NPVVALVECL, Provider: Cristobal Garcia, Status: Pen, Time: 10:30 AM [facility] Work Phone: Start: 08-02-2021 LUCAS, Provider: MP-EC HO ROOM C,MG CARD, Status: Pen, Time: 10:30 AM LUCAS, Provider: MP-ECHO ROOM C,MG CARD, Status: Pen, Time: 10:30 AM GV-Xuhybuvgro-LCC [facility] [address] [place] Work Phone: Start: 07-18-2021 ECHO, Provider: CARSON NEWTON [facility] ULTRASOUND 01,[id number], Status: Pen, Time: 2:00 PM ECHO, Provider: CARROLL [facility] ULTRASOUND 01,[id number], Status: Pen, Time: 2:00 PM SI-Abkwxhiloa-DOW [facility] [place] Work Phone: Start: 06-21-2021 FUV, Provider: Kelly Ruth, Status: Pen, Time: 10:00 AM FUV, Provider: Kelly Ruth, Status: Pen, Time: 10:00 AM WB-Hsuxyplakj-MFT [facility] [address] [place] Work Phone: Start: 05-15-2021 COVID-19 Vaccine (4 - Moderna series) COVID-19 Vaccine (4 - Moderna series) [facility] Start: 02-01-2021 Patient encounter procedure FUVPACEMKR, Provider: [facility],EMCPACEMKR, Status: Pen, Time: 2:20 PM FI-Hlyoqfvwfm-JYI [facility] [place] Work Phone: Start: 11-12-2020 FUV, Provider: Diaz Canchola, Status: Pen, Time: 2:40 PM FUV, Provider: Diaz Canchola, Status: Pen, Time: 2:40 PM TN-Tqxiilfpfe-SHY [facility] [address] [place] Work Phone: Start: 2012 Hepatitis B Vaccines (1 of 3 - Risk 3-dose series) Hepatitis B Vaccines (1 of 3 - Risk 3-dose series) [facility] Start: 10-21-1971 Hepatitis A Vaccines (1 of 2 - Risk 2-dose series) Hepatitis A Vaccines (1 of 2 - Risk 2-dose series) [facility] Start: 1970 Diabetes mellitus screening Diabetes Screening [facility] Start: 1952 Medicare Annual Well ness Visit Medicare Annual Wellness Visit (AWV) [facility] Start: 1950 Screening for malign ant neoplasm of colon [facility] Cardiac defibrillato r in place Cardiac defibrillator in place [facility] End: 02-04-2023 Cardiac Device Check - Remote [facility] Service Area Work Phone: Comment on above: Once for 1 Occurrenc es starting 02/04/2023 until 02/04/2023 Cardiomyopathy Cardiomyopathy [facility] Dyspnea Dyspnea [facility] Encounter for implan table defibrillator reprogramming or check Encounter for implantable defibrillator reprogramming or check [facility] Goals of care, counseling/discussion [facility] Other specified afte rcare following surgery Other specified aftercare following surgery [facility] Patient Education [facility] Work Phone: Patient referral [facility] Work Phone: Immunizations Immunization Date Immunization Notes Care Provider Princess leblanc 11-21-2021 Prevnar 20 0.5 ML Intramuscular Suspension Prefilled Syringe Juan Manuel Albarran Work Phone: [facility] Work Phone: 03-20-2021 Moderna COVID-19 Vac cine 100 MCG/0.5ML Intramuscular Suspension Mera Batista MD Work Phone: [facility] [address] DO Work Phone: 02-25-2021 influenza, high dose seasonal, preservative-free Mera Batista MD Work Phone: [facility] [facility] DO Work Phone: 09-14-2020 Moderna COVID-19 Vac cine 100 MCG/0.5ML Intramuscular Suspension Diaz Canchola DO Work Phone: IG-Ffcicaqsoq-MCR [facility] [address] [place] Work Phone: 08-20-2020 Moderna COVID-19 Vac cine 100 MCG/0.5ML Intramuscular Suspension Diaz Canchola DO Work Phone: ZC-Znivrbadlc-VLB [facility] [address] [place] Work Phone: 06-11-2020 pneumococcal polysaccharide vaccine, 23 valent Diaz Canchola DO Work Phone: DL-Sztnvvyswx-LLY [facility] [address] [place] Work Phone: 08-25-2018 pneumococcal polysaccharide vaccine, 23 valent Diaz Canchola DO Work Phone: AL-Rpzomhdjlh-LPF [facility] [address] [place] Work Phone: 02-02-2017 seasonal influenza, intradermal, preservative free Diaz Canchola DO Work Phone: UE-Hyrundffcn-DZR [facility] [address] [place] Work Phone: 12-25-2015 influenza, injectabl e, quadrivalent, contains preservative Diaz Canchola DO Work Phone: HW-Jmuprmderf-RIN [facility] [address] [place] Work Phone: 01-15-2015 influenza, seasonal, injectable Diaz Canchola DO Work Phone: MQ-Nayeylpfvp-UGC [facility] [address] [place] Work Phone: Payers Date Payer Category Payer Medicare AETNA MEDICARE A ETNA MEDICARE VALUE PLAN [id number] 2022-Present [address] [place] [address] [id number] 2021 Self-pay [id number] 2021 Unknown [id number] 2021 Unknown [id number] 1959 Private Health Insurance [facility] [id number] 1952 Unknown [id number] 2.16.840.1.493557.3.579.2.5 1952 Unknown [id number] 2..840.1.976007.3.579.2.5 1952 Unknown [id number] 2.16.840.1.232436.3.579.2.5 93 1952 Unknown [id number] 2.16.840.1.025533.3.579.2.3 1952 Unknown [id number] 2.16.840.1.713329.3.579.2.3 1952 Unknown [id number] 2.16.840.1.123836.3.579.2.3 1952 Unknown [id number] 2.16.840.1.719179.3.579.2.3 1952 Unknown [id number] 2.16.840.1.772137.3.579.2.3 1952 Unknown [id number] 2.16.840.1.686032.3.579.2.3 56 1952 Unknown [id number] 2.16.840.1.654405.3.579.2.3 56 1952 Unknown [id number] 2.16.840.1.079343.3.579.2.1 246 1952 Unknown [id number] 2.16.840.1.816219.3.579.2.1 8 1952 Unknown [id number] 2.16.840.1.642630.3.579.2.1 1952 Unknown [id number] 2.16.840.1.052028.3.579.2.1 1952 Unknown [id number] 2.16.840.1.010643.3.579.2.1 1952 Unknown [id number] 2.16.840.1.038397.3.579.2.1 8 1952 Unknown [id number] 2.16.840.1.549806.3.579.2.1 1952 Unknown [id number] 2.16.840.1.071010.3.579.2.1 1952 Unknown [id number] 2.16.840.1.322576.3.579.2.1 1952 Unknown [id number] 2.16.840.1.840560.3.579.2.1 1952 Unknown [id number] 2.16.840.1.399613.3.579.2.1 1952 Unknown [id number] 2.16.840.1.550931.3.579.2.1 1952 Unknown [id number] 2.16.840.1.927521.3.579.2.1 1952 Unknown [id number] 2.16.840.1.333526.3.579.2.1 1952 Unknown [id number] 2.16.840.1.830381.3.579.2.1 1952 Unknown [id number] 2.16.840.1.456176.3.579.2.1 1952 Unknown [id number] 2.16.840.1.286574.3.579.2.1 1952 Unknown [id number] 2.16.840.1.239815.3.579.2.1 1952 Unknown [id number] 2.16.840.1.543952.3.579.2.1 1952 Unknown [id number] 2.16.840.1.268972.3.579.2.1 1952 Unknown [id number] 2.16.840.1.363862.3.579.2.1 1952 Unknown [id number] 2.16.840.1.374816.3.579.2.1 1952 Unknown [id number] 2.16.840.1.644161.3.579.2.1 1952 Unknown [id number] 2.16.840.1.110613.3.579.2.1 1952 Unknown [id number] 2.16.840.1.234225.3.579.2.1 1952 Unknown [id number] 2.16.840.1.604262.3.579.2.1 1952 Unknown [id number] 2.16.840.1.211910.3.579.2.1 1952 Unknown [id number] 2.16.840.1.740789.3.579.2.1 1952 Unknown [id number] 2.16.840.1.415633.3.579.2.1 1952 Unknown [id number] 2.16.840.1.021220.3.579.2.1 259 1952 Unknown [id number] 2.16.840.1.867111.3.579.2.1 259 1952 Unknown [id number] 2.16.840.1.772191.3.579.2.1 259 1952 Unknown [id number] 2.16.840.1.379982.3.579.2.1 259 Medicare [id number] Unknown Unknown [id number] 2.16.840.1.763774.3.579.2.5 31 Unknown [id number] 2.16.840.1.989011.3.579.2.5 31 Unknown [id number] 2.16.840.1.168147.3.579.2.5 31 Unknown [id number] 2.16.840.1.583859.3.579.2.5 31 Unknown [id number] 2.16.840.1.892798.3.579.2.5 31 Unknown [id number] 2.16.840.1.879430.3.579.2.5 31 Social History Date Type Detail Facility Caffeine use Caffeine use ZG-Jehslxfllu-C [facility] [address] [place] Work Phone: Comment on above: 3 cups a day; Start: 09-14-2019 End: 02-24-2022 Tobacco smoking status NHIS Ex-smoker (finding) [facility] Start: 1950 Sex Assigned At Male F [facility] Tobacco smoking consumption unknown [facility] Start: 01-15-2022 End: 01-15-2022 Tobacco smoking status CTIS Never smoked tobacco (finding) [facility] Start: 1950 Sex Assigned At Not on file [facility] Work Phone: Gender identity Not on file [facility] Work Phone: Goals Date Patient Goal Desired Activity /State Functional Status Date Assessment Result Facility Functional observable [facility] Mental Status Date Assessment Result Facility 11-14-2021 Cognitive functi ons [id number] [facility] Clinical Notes 08-13-2020 to 11-14-2021 <item><item><item><item><item><item><item><item><item><item><item><item> Note [...] Satisfactory Disposition at Discharge: .Home Hospital Course: Travel Consultant: Dr. Diaz Canchola Patient is a pleasant 70 year-old male with previous medical history significant for hypertension, non-ischemic cardiomyopathy, s/p CUSTOMER EXPERIENCE INTERN-D, who was referred for evaluation of mitral and tricuspid regurgitation. Patient endorses progressively worsening dyspnea with minimal exertion (walking less than 1 block) and orthopnea. 11/14/2021: S/P cancelled procedure - After general anesthesia, TTE showing only mild Mitral Regurgitation, probably due to clinical compensation and S/P CUSTOMER EXPERIENCE INTERN with LV function improvement, therefore the procedure [...] have any concerns, you may contact the Collar Fuser or if any of these symptoms become excessive, contact your bar turner or go to the emergency room No [...] you, please have them fax results to [phone]. You have been given the order requisition [...] You will follow up with your primary bar turner in 6-10 weeks No elective dental procedures or cleanings for 3 months post procedure You will need dental prophylaxis (oral antibiotic) prior to dental work/cleanings for life. Please call for any questions or concerns: - Nurse Line M-F 9am-4pm: - On-Call Anode Rebuilder: Follow Up Appointments: Follow-Up Appointment 01: Physician/Dept/Service: Lissa Spears CNP Reason for Referral: 1 week Structural Heart BRICK DROPPER follow-up Scheduled Date/Time: 21-Nov-2021 11:00 Location: virtual visit Phone Number: Scheduling questions [phone] or Structural Heart Team [phone] Follow-Up Appointment 02: Physician/Dept/Service: Lissa Spears CNP Reason for Referral: 1 month [facility] BRICK DROPPER follow-up Scheduled Date/Time: 19-Dec-2021 10:30 Location: virtual visit Phone Number: Scheduling questions [phone] or Structural Heart Team [phone] Follow-Up Appointment 03: Physician/Dept/Service (more content not included)... [facility] 11-14-2021 Hospital Discharge instructions Activity:May not drive [...] you, please have them fax results to [phone].You have been given the order requisition for [...] dischargeYou will follow up with your primary bar turner in 6-10 weeksNo elective dental procedures or cleanings for 3 months post procedureYou will need dental prophylaxis (oral antibiotic) prior to dental work/cleanings for life. Please call for any questions or concerns: - Nurse Line M-F 9am-4pm: - On-Call Anode Rebuilder: call Provider If:Breathing faster than normal. Temperature [...] have any concerns, you may contact the Collar Fuser or if any of these symptoms become excessive, contact your bar turner or go to the emergency room. No [...] Gonzales for Referral: 1 week Structural [facility] BRICK DROPPER follow-upScheduled Date/Time: 21-Nov-2021 11:00Location: virtual visitPhone Number: Scheduling questions [phone] or Structural Heart Team [phone]: Please keep a record of your daily weights, as well as your blood pressures (take your blood pressure 2 times a day atleast 1 hour after your pills). Bring these results to your follow up appointmentsFollow Up Appointment 2:Physician/Dept/Service: Clayton Gonzales for Referral: 1 month Structural [facility] BRICK DROPPER follow-upScheduled Date/Time: 19-Dec-2021 10:30Location: virtual visitPhone Number: Scheduling questions [phone] or Structural Heart Team [phone]: You have been given the order requisition for the 1 month ECHO at the time of your discharge. Please call and schedule this ECHO at your LOCAL center (no sooner than 23 days after your procedure date).Follow Up Appointment 3:Physician/Dept/Service: Clayton Gonzales for Referral: 1 year Structural Heart BRICK DROPPER follow-upScheduled Date/Time: 14-Nov-2022 10:30Location: virtual visitPhone Number: Scheduling questions [phone] or Structural Heart Team [phone] [facility] 11-14-2021 Note History of Present I llness: Admission Reason: MitraClip HPI: Travel Consultant: Dr. Diaz Canchola Patient is a pleasant 70 year-old male with previous medical history significant for hypertension, non-ischemic cardiomyopathy, s/p CUSTOMER EXPERIENCE INTERN-D, who was referred for evaluation of mitral [...] mitral regurgitation # Non-ischemic cardiomyopathy, HFrEF, s/p CUSTOMER EXPERIENCE INTERN-D Considering his cardiac comorbidities including severely reduced [...] the note. I personally evaluated the patient [id number] Electronic Signatures: Cristobal Garcia) (Signed 14-Nov-2021 16:57) Authored: Note Completion Co-Signer: History of Present Illness, Comorbidities, Allergies, Medications Prior to Admission, Objective, Assessment and Plan, Note Completion Andrea Cuevas (Fellow)) (Signed 14-Nov-2021 13:19) Authored: History of Present Illness, Comorbidities, Allergies, Medications Prior to Admission, Objective, Assessment and Plan, Note Completion Last Updated: 14-Nov-2021 16:57 by Cristobal Garcia) [facility] 11-14-2021 Note History & Physical R eviewed: [...] the note. I personally evaluated the patient [id number] Electronic Signatures: Cristobal Garcia) (Signed 14-Nov-2021 16:57) Authored: Note Completion Co-Signer: History & Physical Reviewed, Airway/Sedation, ERAS, Consent, Note Completion Andrea Cuevas (Fellow)) (Signed 14-Nov-2021 13:18) Authored: History & Physical Reviewed, Airway/Sedation, ERAS, Consent, Note Completion Last Updated: 14-Nov-2021 16:57 by Cristobal Garcia () [facility] 11-14-2021 Note Clinical Note - Phar karen [...] Medication reconciliation complete Please reach out via [employer] for questions Jacqueline Jones, PharmD, Meds PGY1 Resident Meds Ambulatory and [employer] Services Is This Intervention Medication Reconciliation Relatedyes Time [id number] minutes Additional NotesDrug Name: digoxin 125 mcg [...] Known Allergies Electronic Signatures: Jacqueline Jones ([facility]LY [facility]) (Signed 11-Aug-2022 10:52) Authored: Education, Allergy Teresa Valverde ([facility]) (Signed 14-Nov-2021 11:24) Co-Signer: Education, Allergy Last Updated: 14-Nov-2021 11:24 by Teresa Valverde ([facility]) [facility] 05-20-2021 History of Present illness Narrative [address] Canchola here for 1 month follow up for heart failure. Last visit 05/20/21, increased Entresto 97-103mg BID. Order for RFP/BNP/Dig.PMHx: HFrEF (LVEF 20%) s/p CUSTOMER EXPERIENCE INTERN-D 01/2020 ([facility])/ NICM/ valvular dx (severe [...] edema. Home BP 130s/80s. HR 80s. Weight [id number]. Decreased appetite w/intermittent nausea. Eating one meal/day. [...] medication regimen. He denies medication side effects. PA-Ajdrdoryzb-[facility] [address] [place] Work Phone: 05-10-2021 History of Present illness Narrative [address] Canchola here for 6 week follow up for heart failure. Last visit 08/13/20, no medication changes.PMHx: HFrEF (LVEF 20%) s/p CUSTOMER EXPERIENCE INTERN-D 01/2020 ([facility])/ NICM/ valvular dx (severe [...] edema. Home BP 130s/80s. HR 80s. Weight [id number]. Decreased appetite w/intermittent nausea. Eating one meal/day. [...] medication regimen. He denies medication side effects. [facility] [address] [place] Work Phone: Chief complaint Narrative - Reported CORKY DUENAS is being seen for a 6 month follow-up of cardiomyopathy, heart failure and a routine medication evaluation. [facility] [address] [place] Work Phone: Chief complaint Narrative - Reported CORKY DUENAS is being seen for a 6 month follow-up of cardiomyopathy, heart failure and a routine medication evaluation. [facility] [address] DO Work Phone: Chief complaint Narrative - Reported Patient is here for a Valve & Structural Heart evaluation for mitral / tricuspid regurgitation following a referral by Dr. Diaz Canchola. RUBY FraserN, RN [facility] [address] Work Phone: Evaluation note No [facility] Work Phone: Evaluation note Diagnosis AICD (automatic cardioverter/defibrillator) present Automatic implantable cardiac defibrillator in situ Congestive cardiomyopathy (CMS/HCC) Other primary cardiomyopathies documented in this encounter [facility] Work Phone: Evaluation note* Diagnosis AICD (automatic cardioverter/defibrillator) present Automatic implantable cardiac defibrillator in situ Congestive cardiomyopathy (CMS/HCC) Other primary cardiomyopathies documented in this encounter [facility] Work Phone: History of Present illness Narrative* Referring providers: Structural Heart Team * Gen bar turner: Stephen ([facility]) * EP: Lynne ([facility]) * Mr. Duenas is a 70 y/o M with a PMHx sig for stage D systolic HF/NICM/HFrEF with severe LV dysfunction (LVEF 20-25%) s/p CUSTOMER EXPERIENCE INTERN-D with associated functional mitral regurgitation, hypothyroidism, and [...] dizziness a few weeks. He went to [place]. * Reports full adherence to low sodium diet at home * CUSTOMER EXPERIENCE INTERN-D was placed January [address] Mera Batista * PMHx: * stage D systolic HF/NICM/HFrEF with severe LV dysfunction (LVEF 20-25%) s/p CUSTOMER EXPERIENCE INTERN-D with associated functional mitral regurgitation, hypothyroidism, CKD * SocHx: * Lives in [place], [place] with mother (in her 80s), he [...] cancer. Denies other family history of CAD, ME, CHF, OHS, MCS or OHT * Mother: DM, CKD * Father: ?CVA, from brain cancer in his 40's PA-Ghbrrpaojd-ATJ [facility] [address] [place] Work Phone: History of Present illness Narrative* Referring providers: Structural Heart Team * Gen bar turner: [facility] * EP: Lynne ([facility]) * Mr. Duenas is a 70 y/o M with a PMHx sig for stage C/D systolic HF/NICM/HFrEF with severe LV dysfunction (LVEF 20-25%) s/p CUSTOMER EXPERIENCE INTERN-D with associated functional mitral regurgitation, hypothyroidism, and [...] dizziness a few weeks. He went to [place]. * Reports full adherence to low sodium diet at home * CUSTOMER EXPERIENCE INTERN-D was placed January [address] Mera Batista * PMHx: * stage C/D systolic HF/NICM/HFrEF with severe LV dysfunction (LVEF 20-25%) s/p CUSTOMER EXPERIENCE INTERN-D with associatedfunctional mitral regurgitation, hypothyroidism, CKD * SocHx: * Lives in [place], [place] with mother (in her 80s), he [...] cancer. Denies other family history of CAD, ME, CHF, OHS, MCS or OHT * Mother: DM, CKD * Father: ?CVA, from brain cancer in his 40's [facility] [address] DO Work Phone: History of Present [...] visit. Personally paired pt s device with iTherX pulse nabeel; troubleshooting of nabeel performed and called [employer] support for 20 minutes troubleshooting * Normal cors by catheterization. Ejection fraction 30% by myocardial perfusion scanning 2019. LVEF20% by echo 2020. [place] [employer] 3C heart failure. Chronic. Stable. [...] needed, treatment options, risks, benefits, and imponderables. [place] Heart Ass ociation lifestyle changes and behavioral modification discussed. All questions answered in detail.Counseling over 50% visit regarding above. Patient appreciative of care. * Extended time of visit for troubleshooting remote monitor nabeel and pairing ICD and nabeel. -[facility] [address] DO Work Phone: History of Present illness Narrative* Travel Consultant: Dr. Diaz Canchola * Patient is a pleasant 70 year-old male with previous medical history significant for hypertension, non-ischemic cardiomyopathy, s/p CUSTOMER EXPERIENCE INTERN-D, who was referred for evaluation of mitral [...] * Long Length of Stay: * 9.303% [facility] [employer] [address] [place] Work Phone: History of Present illness Narrative* Travel Consultant: Dr. Diaz Canchola * Patient is a pleasant 70 year-old male with previous medical history significant for hypertension, non-ischemic cardiomyopathy, s/p CUSTOMER EXPERIENCE INTERN-D, who was referred for evaluation of mitral and tricuspid regurgitation. * Patient endorses progressively worsening dyspnea with minimal exertion (walking less than 1 block) and orthopnea. 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, [facility] [address] [place] [address] Referral ID Status Reason Start Date Expiration Date Visits Requested Visits Authorized [id number] Pending Review Perform Procedure 02/04/2023 02/04/2024 1 1 Additional Source Comments (unrecognized sect ion and content) No Status Records FoundNo Status Records FoundNo Status Records FoundNo Status Records FoundNo Status Records FoundNo Status Records FoundNo Status Records FoundNo Status Records Found INFORMATION SOURCE (unrecogn ized section and content) DATE CREATED AUTHOR 09/12/2018 [facility] DATE CREATED AUTHOR AUTHOR'S ORGANIZ ATION 09/14/2021 [employer] DATE CREATED AUTHOR AUTHOR'S ORGANIZ ATION 03/15/2022 [facility] DATE CREATED AUTHOR AUTHOR'S ORGANIZ ATION 08/18/2022 [facility] DATE CREATED AUTHOR AUTHOR'S ORGANIZ ATION 08/20/2022 [facility] DATE CREATED AUTHOR AUTHOR'S ORGANIZ ATION 02/09/2023 [facility] DATE CREATED AUTHOR AUTHOR'S ORGANIZ ATION 02/22/2023 [facility] DATE CREATED AUTHOR AUTHOR'S ORGANIZ ATION 04/27/2023 [facility] dical Specialists EPIC Care Teams (unrecognized [...] Active Beau Goldberg MD Attending Provider Active Banking Pin Adjuster Relationship Specialty Start Date End Date Juan Manuel Albarran MD [address] [facility] [address] [place] [address] PCP - General 07/31/22 Banking Pin Adjuster Relationship Specialty Start Date End Date Juan Manuel Albarran MD [address] [facility] [address] [place] [address] PCP - General 07/31/22 Goals (unrecognized section [...] - Remote Mera Batista MD [address] [facility] [place] [address] [place] [address] Referral ID Status Reason Start Date Expiration Date Visits Requested Visits Authorized [id number] Pending Review Perform Procedure 02/04/2023 02/04/2024 1 [...] BE BASED ON THE PRIMARY CLINICAL RECORDS. [employer] provides no warranty or guarantee of the accuracy or completeness of information in this document.
[2023-05-11] MEDS: SERTRALINE HCL 50 MG TABLET 25 MG PO (08:33)
[2023-05-11] MEDS: CARVEDILOL 3.125 MG TABLET PO ×2 (08:33→21:15)
[2023-05-11] MEDS: LEVOTHYROXINE SODIUM IV (08:36)
[2023-05-11] MEDS: SODIUM CHLORIDE IV (08:36)
[2023-05-11] MEDS: FUROSEMIDE 40 MG/4 ML VIAL IVP (08:38)
[2023-05-11] MEDS: ENSURE HP 237 ML LIQUID PO ×2 (08:39→21:15)
--- NOTE | 2023-05-11 09:00 | PM.PN ---
Progress Note: Subjective Subjective Interval history: Overall feels weak but no other further symptoms. Exam Constitutional Vital Signs, click to edit/add: Last Vital Signs Temp 97.9 F 05/11/23 07:29 Pulse 89 05/11/23 08:00 Resp 18 05/11/23 07:44 BP 106/69 05/11/23 07:29 Pulse Ox 92 L 05/11/23 07:29 O2 Del Method Room Air 05/11/23 07:29 Documenting provider has reviewed patient's vital signs: yes Common normals: no apparent distress Chest Common normals: inspection of chest normal Respiratory Common normals: normal respiratory effort Auscultation: rales (Bases) Cardio Common normals: regular rate and regular rhythm Extremity Common normals: abnormal to inspection (1+ edema-much improved per staff) Progress Note: Objective Labs Labs: Short CBC 05/11/23 Range/Units 04:55 WBC 3.6 L (4.0-11.0) 10^3/uL Hgb 13.1 L (14.0-18.0) g/dL Hct 41.0 L (42.0-54.0) % Plt Count 148 L (150-450) 10^3/uL BMP 05/10/23 05/10/23 05/11/23 14:20 20:14 04:55 Sodium 141 141 141 Potassium 3.9 3.8 3.8 Chloride 103 104 105 Carbon Dioxide 33.0 H 31.3 28.0 BUN 19.0 H 20.0 H 18.0 Creatinine 1.68 H 1.62 H 1.35 H Glucose 118 H 85 71 L Calcium 7.7 L 7.7 L 7.7 L Liver Function 05/11/23 Range/Units 04:55 Total Bilirubin 1.1 H (0.2-1.0) mg/dL AST 29 (15-37) U/L ALT 16 (16-63) U/L Alkaline Phosphatase 54 (46-116) U/L Albumin 2.3 L (3.4-5.0) g/dL Progress Note: A&P Assessment and Plan (1) Acute exacerbation of CHF (congestive heart failure): Assessment and Plan: Much improved from admission Qualifiers: Heart failure type: combined systolic and diastolic Qualified Code(s): I50.43 - Acute on chronic combined systolic (congestive) and diastolic (congestive) heart failure (2) HFrEF (heart failure with reduced ejection fraction): Assessment and Plan: Stable (3) Pleural effusion: Assessment and Plan: Consider repeat chest x-ray (4) CKD (chronic kidney disease) stage 4, GFR 15-29 ml/min: Assessment and Plan: Improved (5) CAD (coronary artery disease): Assessment and Plan: Stable Qualifiers: Associated angina: without angina Coronary Disease-Associated Artery/Lesion type: [place] artery [place] vs. transplanted heart: [place] heart Qualified Code(s): I25.10 - Atherosclerotic heart disease of [place] coronary artery without angina pectoris (6) HTN (hypertension): Assessment and Plan: Blood pressures been low over the weekend but is improved today. Will restart Coreg Qualifiers: Hypertension type: primary hypertension Qualified Code(s): I10 - Essential (primary) hypertension (7) Hypothyroidism: Assessment and Plan: Severe hypothyroidism with levels yesterday coming back is nondetectable. Will change him to IV Synthroid and continue with the oral liothyronine. Levels are least recordable today. Repeat in a.m. Qualifiers: Hypothyroidism type: acquired Qualified Code(s): E03.9 - Hypothyroidism, unspecified (8) Cardiac defibrillator in place: (9) Abdominal pain: Assessment and Plan: Denies (10) Constipation: Assessment and Plan: Resolved (11) Congestive heart failure: (12) Iron deficiency anemia: Assessment and Plan: Improved (13) Neutropenia: Assessment and Plan: Stable with thrombocytopenia also improved Plan Patient could benefit from placement. Not safe for him to be at home with his weakness and a high fall risk with an ejection fraction of only 10%. Recovery from any orthopedic injury would be unlikely
--- NOTE | 2023-05-11 09:55 | CM.NOTE ---
Rounds made with Dr. Mathews. Mr. Buckley would like more therapy for weakness and strength. Awaiting P.T./O.T. for further plan.
--- NOTE | 2023-05-11 09:57 | CM.NOTE ---
Important Message from Medicare reviewed with Mr. Buckley and signed by Mr. Buckley. No questions offered. Verbalizes understanding. Copy to chart and to Mr. Buckley.
--- NOTE | 2023-05-11 10:00 | CM.NOTE ---
Spoke with Waleska-Mr. Buckley's sister regarding her brother. Currently, she feels it is not safe for her brother to return to home as he does not take his medications as he should and he just sits all day. Would like to investigate what options may be out there for Vinnie so he can be safe in his environment. Will gather information and speak with both Vinnie and his sister for a plan.
[2023-05-11] MEDS: ACETAMINOPHEN 500 MG TABLET 1000 MG PO (11:07)
[2023-05-11] MEDS: LIOTHYRONINE SODIUM 25 MCG TABLET PO (11:50)
--- NOTE | 2023-05-11 15:59 | SWNOTE1 ---
MEHUL met with pt to discuss dc needs. Pt's sister was in room as well. SW let pt and sister know that therapy will be in this afternoon. They were recommending HH. MEHUL did ask pt what his thoughts on discharge are? Pt voiced his HH nurse told him he needs to go skilled. SW let pt know we can try to get him to rehab. MEHUL explained there is a chance his insurance could deny him as well. Pt is current with [facility]. Pt's sister did ask about medicaid. They voiced HH told them he would not qualify for medicaid. SW recommended applying for medicaid for the future in case pt needs AL or snf. Pt's sister and pt voiced understanding. SW attempted to provide star rating list from medicare.gov, but pt stated he wants to go to [place]. SW to send referral. As of now pt and sister voiced understanding in pt being a precert and could be denied or approved for skilled. Pt's sister lives in [place]. Pt is at home by himself. She sometimes has groceries delivered for him. No other family around. MEHUL did provide medicaid application to pt and sister. Medicaid application completed and faxed to [facility]. Referral sent to [facility] for skilled. Pt is a precert. Referral included face sheet, physician notes, labs, diagnostic imaging, PT/OT, med list, vitals, and and pertinent nursing notes.
[2023-05-11] MEDS: ENOXAPARIN SODIUM 40 MG/0.4 ML SYRINGE SUBQ (18:06)
[2023-05-11] MEDS: HYOSCYAMINE SULFATE 0.125 MG TAB.SUBL SL (18:09)
--- NOTE | 2023-05-11 18:17 | ECG_ITS ---
[facility] Test Date: 2023-05-11 Pat Name: CORKY DUENAS Department: Room: 2291 Gender: Male Color Grinder: : [id number] Requested By: JELLY VASQUEZ Order Number: [id number] Reading MD: JELLY VASQUEZ Measurements Intervals [place] Rate: 80 P: 63 DC: 141 QRS: 95 QRSD: 160 T: -81 QT: 446 QTc: 516 Interpretive Statements ELECTRONIC VENTRICULAR PACEMAKER ABNORMAL RHYTHM ECG Compared to ECG 05/08/2023 11:59:07 No significant changes Electronically Signed On 05-14-2023 5:31:26 EST by JELLY VASQUEZ
[2023-05-11 19:02] LABS: Troponin I High Sensitivity 12.7 pg/mL (4.0-76.1)
[2023-05-11] MEDS: MIRTAZAPINE 15 MG TABLET PO (21:15)
[2023-05-11 22:09] LABS: Troponin I High Sensitivity 15.2 pg/mL (4.0-76.1)
[2023-05-12] VITALS (22 sets, daily range): BP systolic 82–100; BP diastolic 47–67; PULSE 76–92; RESP 14–18; TEMP 36.1–36.8; O2SAT 91–95
[2023-05-12 00:44] LABS: Troponin I High Sensitivity 17.5 pg/mL (4.0-76.1)
[2023-05-12 05:20] LABS: Basophils Absolute Auto 0.1 10^3/uL (0.0-0.1); Basophils Percent Auto 1.3 % (0.2-2.0); Eosinophils Absolute Auto 0.1 10^3/uL (0.0-0.7); Eosinophils Percent Auto 2.4 % (0.9-7.0); Hematocrit 38.7 % (42.0-54.0); Hemoglobin 12.3 g/dL (14.0-18.0); Immature Granulocytes Abs Auto 0.01 10^3/uL (0.00-0.03); Immature Granulocytes Pct Auto 0.3 % (0.0-0.5); Lymphocytes Absolute Auto 1.1 10^3/uL (1.2-3.8); Lymphocytes Percent Auto 27.6 % (20.5-60.0); Mean Corpuscular HGB Conc 31.8 g/dL (29.9-35.2); Mean Corpuscular Hemoglobin 30.9 pg (25.9-34.0); Mean Corpuscular Volume 97.2 fL (80.0-94.0); Mean Platelet Volume 10.7 fL (9.5-13.5); Monocytes Absolute Auto 0.3 10^3/uL (0.3-0.8); Monocytes Percent Auto 7.4 % (1.7-12.0); Neutrophils Absolute Auto 2.3 10^3/uL (1.4-6.5); Platelet Count 142 10^3/uL (150-450); Red Blood Count 3.98 10^6/uL (4.70-6.10); White Blood Count 3.8 10^3/uL (4.0-11.0)
[2023-05-12 05:46] LABS: Alanine Aminotransferase 11 U/L (16-63); Albumin Globulin Ratio 0.6; Albumin Level 2.2 g/dL (3.4-5.0); Alkaline Phosphatase 56 U/L (46-116); Anion Gap 9.3; Aspartate Amino Transferase 23 U/L (15-37); BUN Creatinine Ratio 20.6; Bilirubin Total 0.7 mg/dL (0.2-1.0); Calcium 7.6 mg/dL (8.5-10.1); Carbon Dioxide 30.1 mmol/L (21.0-32.0); Chloride 104 mmol/L (98-107); Estimated GFR (African America >60 (>=60); Estimated GFR (Non-African Ame 54 (>=60); Globulin 3.4 g/dL; Glucose 87 mg/dL (74-106); Potassium 3.4 mmol/L (3.5-5.1); Sodium 140 mmol/L (136-145); Total Protein 5.6 g/dL (6.4-8.2)
[2023-05-12 05:47] LABS: Free T3 1.54 pg/mL (2.18-3.98)
[2023-05-12] MEDS: ZINC OXIDE 30% CREAM 113.4 GM TUBE 1 APPLIC TOPICAL ×4 (05:57→21:44)
[2023-05-12] MEDS: SODIUM CHLORIDE IV (08:49)
[2023-05-12] MEDS: LEVOTHYROXINE SODIUM IV (08:49)
[2023-05-12] MEDS: SERTRALINE HCL 50 MG TABLET 25 MG PO (08:50)
[2023-05-12] MEDS: ACETAMINOPHEN 500 MG TABLET 1000 MG PO (08:50)
[2023-05-12] MEDS: LIOTHYRONINE SODIUM 25 MCG TABLET PO (08:51)
[2023-05-12] MEDS: CARVEDILOL 3.125 MG TABLET PO (08:51)
[2023-05-12] MEDS: ENSURE HP 237 ML LIQUID PO ×2 (08:51→21:43)
[2023-05-12] MEDS: FUROSEMIDE 40 MG/4 ML VIAL IVP (08:51)
--- NOTE | 2023-05-12 08:59 | PM.PN ---
Progress Note: Subjective Subjective Interval history: Still with significant weakness with ambulation Exam Constitutional Vital Signs, click to edit/add: Last Vital Signs Temp 97.0 F L 05/12/23 08:02 Pulse 90 05/12/23 08:04 Resp 14 05/12/23 08:02 BP 96/57 05/12/23 08:51 Pulse Ox 95 05/12/23 08:02 O2 Del Method Room Air 05/12/23 08:02 Documenting provider has reviewed patient's vital signs: yes Common normals: no apparent distress Chest Common normals: inspection of chest normal Respiratory Common normals: normal respiratory effort Auscultation: rales (Bases) Cardio Common normals: regular rate and regular rhythm Extremity Common normals: abnormal to inspection (1+ edema-much improved per staff) Progress Note: Objective Labs Labs: Short CBC 05/12/23 Range/Units 04:45 WBC 3.8 L (4.0-11.0) 10^3/uL Hgb 12.3 L (14.0-18.0) g/dL Hct 38.7 L (42.0-54.0) % Plt Count 142 L (150-450) 10^3/uL BMP 05/12/23 04:45 Sodium 140 Potassium 3.4 L Chloride 104 Carbon Dioxide 30.1 BUN 27.0 H Creatinine 1.31 H Glucose 87 Calcium 7.6 L Liver Function 05/12/23 Range/Units 04:45 Total Bilirubin 0.7 (0.2-1.0) mg/dL AST 23 (15-37) U/L ALT 11 L (16-63) U/L Alkaline Phosphatase 56 (46-116) U/L Albumin 2.2 L (3.4-5.0) g/dL Progress Note: A&P Assessment and Plan (1) Acute exacerbation of CHF (congestive heart failure): Assessment and Plan: Attempt diuresis again today as BNP is elevated Qualifiers: Heart failure type: combined systolic and diastolic Qualified Code(s): I50.43 - Acute on chronic combined systolic (congestive) and diastolic (congestive) heart failure (2) HFrEF (heart failure with reduced ejection fraction): Assessment and Plan: Last ejection fraction noted was 10%-benefit from maintaining low blood pressure. (3) Pleural effusion: Assessment and Plan: Pleural effusion secondary to the above, continue with diuresis (4) CKD (chronic kidney disease) stage 4, GFR 15-29 ml/min: Assessment and Plan: Stable, slightly improved today (5) CAD (coronary artery disease): Assessment and Plan: Chest pain-free Qualifiers: Associated angina: without angina Coronary Disease-Associated Artery/Lesion type: [place] artery [place] vs. transplanted heart: [place] heart Qualified Code(s): I25.10 - Atherosclerotic heart disease of [place] coronary artery without angina pectoris (6) HTN (hypertension): Assessment and Plan: This morning's will attempt diuresis Qualifiers: Hypertension type: primary hypertension Qualified Code(s): I10 - Essential (primary) hypertension (7) Hypothyroidism: Assessment and Plan: Severe hypothyroidism-continue with IV dosing until levels are improved. Qualifiers: Hypothyroidism type: acquired Qualified Code(s): E03.9 - Hypothyroidism, unspecified (8) Cardiac defibrillator in place: (9) Abdominal pain: Assessment and Plan: Denies currently (10) Constipation: Assessment and Plan: Improving (11) Congestive heart failure: Assessment and Plan: Acute combined congestive heart failure-significant edema is improved from admission. (12) Iron deficiency anemia: Assessment and Plan: Monitor daily-stable (13) Neutropenia: Assessment and Plan: Monitor daily Plan P rehabilitation assessment completed. For patient safety he needs rehabilitation. Medications as outlined above, continue to monitor closely.
[2023-05-12] MEDS: POTASSIUM CHLORIDE 10 MEQ ER TABLET 20 MEQ PO ×2 (09:19→21:42)
--- NOTE | 2023-05-12 09:27 | SWNOTE1 ---
MEHUL received a message yesterday evening from [facility]. They did receive referral and can accept and would like a call back. MEHUL called back and had to leave message, in message MEHUL let Alva, admissions at [facility], know to start the precert for pt to go skilled. Waiting relations specialist back. MEHUL to send updates later today.
--- NOTE | 2023-05-12 09:53 | SWNOTE1 ---
MEHUL received a call back from Alva at [facility] and she stated that she found out they are not in network with his insurance. Alva apologized as she just found this out. MEHUL requested list of insurances they do accept currently. SW to speak with pt and sister to see what other facility they would like.
--- NOTE | 2023-05-12 10:10 | CM.NOTE ---
Rounds made with Dr. Mathews. No plan for discharge today.
--- NOTE | 2023-05-12 10:18 | PC.NURSE ---
patient refused to lay down in bed x2. patient states he feels better in chair.
--- NOTE | 2023-05-12 10:30 | SWNOTE1 ---
spoke with pt in room and pt's sister on phone while in room. SW updated them about [facility] not taking insurance. SW reviewed star rating list from medicare.gov. Pt voiced he would like the [facility]. MEHUL sent referral to [facility]. Referral included face sheet, physician notes, labs, diagnostic imaging, med list, vitals, pertinent nursing notes, and PT/OT.
--- NOTE | 2023-05-12 11:32 | SWNOTE1 ---
[facility] can start precert once they have progress note from today or yesterday. Both notes were in draft form this morning. MEHUL sent progress note from yesterday to [facility] along with [facility] paperwork. Ruthie is starting precert. Ruthie also coming to visit pt today.
--- NOTE | 2023-05-12 12:24 | PT.DAILY ---
Physical Therapy Daily Note PT Daily Note/Assess Start: 05/08/23 15:49 Freq: Status: Active Protocol: Document 05/12/23 10:10 PARDEEP (Rec: 05/12/23 12:23 PARDEEP [id number]) Physical Therapy Daily Note/Assessment Time In/Time Out Time In 10:11 Time Out 10:20 Pain In Pain N/A Pain Out Pain N/A Subjective Subjective Nursing (Nicole VU) stops therapist before going into room. States patient is up in chair but BP is low, and doesn 't want patient up walking in room. If patient wants to go back to bed can help patient back into bed or just do seated or supine exercises. Once in room patient reports feeling good up in chair and declines to go back to bed. Wants to stay up. Agrees to exercises for strengthening. Therapeutic Exercise Time Therapeutic Exercise Minutes (minutes) 9 Therapeutic Exercise Units 1 Therapeutic Exercise Treatment Therapeutic Exercise Treatment Seated exercises as follows 2x10: -Seated HR/TR -Marches -LAQ -Hip adduction squeeze -MRE with hip abduction -Hip ER -Side step outs -MRE with HS curl Total Physical Therapy Time Total Therapy Minutes 9 Total Physical Therapy Units 1 Summary Daily Note Summary RX limited to exercises only per nursing request due to patient's low BP this morning. Patient does well with exercise program and able to progress reps and resistance with MRE on some exercises. Will continue to work on strengthening while patient in acute stay, and continue to recommend SNF at [place].
--- NOTE | 2023-05-12 16:09 | SWNOTE1 ---
Mayelin started to [place].
[2023-05-12] MEDS: ENOXAPARIN SODIUM 40 MG/0.4 ML SYRINGE SUBQ (16:53)
[2023-05-12] MEDS: MIRTAZAPINE 15 MG TABLET PO (21:42)
[2023-05-12] MEDS: ACETAMINOPHEN 325 MG TABLET 650 MG PO (22:42)
[2023-05-13] VITALS (10 sets, daily range): BP systolic 100–112; BP diastolic 66–71; PULSE 78–92; RESP 20; TEMP 36.6; O2SAT 96
[2023-05-13] MEDS: ZINC OXIDE 30% CREAM 113.4 GM TUBE 1 APPLIC TOPICAL ×2 (05:33→13:02)
[2023-05-13 05:37] LABS: Basophils Percent Auto 1.2 % (0.2-2.0); Eosinophils Absolute Auto 0.1 10^3/uL (0.0-0.7); Eosinophils Percent Auto 3.5 % (0.9-7.0); Hematocrit 36.8 % (42.0-54.0); Hemoglobin 11.7 g/dL (14.0-18.0); Immature Granulocytes Abs Auto 0.01 10^3/uL (0.00-0.03); Immature Granulocytes Pct Auto 0.3 % (0.0-0.5); Lymphocytes Percent Auto 28.4 % (20.5-60.0); Mean Corpuscular HGB Conc 31.8 g/dL (29.9-35.2); Mean Corpuscular Hemoglobin 31.1 pg (25.9-34.0); Mean Corpuscular Volume 97.9 fL (80.0-94.0); Mean Platelet Volume 10.5 fL (9.5-13.5); Monocytes Absolute Auto 0.3 10^3/uL (0.3-0.8); Monocytes Percent Auto 8.1 % (1.7-12.0); Neutrophils Percent Auto 58.5 % (43.0-75.0); Platelet Count 143 10^3/uL (150-450); Red Blood Count 3.76 10^6/uL (4.70-6.10); Red Cell Distribution Width 16.2 % (11.0-15.0); White Blood Count 3.5 10^3/uL (4.0-11.0)
[2023-05-13 06:30] LABS: Alanine Aminotransferase 12 U/L (16-63); Albumin Globulin Ratio 0.7; Albumin Level 2.3 g/dL (3.4-5.0); Alkaline Phosphatase 54 U/L (46-116); Aspartate Amino Transferase 24 U/L (15-37); Bilirubin Total 0.7 mg/dL (0.2-1.0); Calcium 8.1 mg/dL (8.5-10.1); Carbon Dioxide 28.5 mmol/L (21.0-32.0); Chloride 103 mmol/L (98-107); Estimated GFR (African America >60 (>=60); Estimated GFR (Non-African Ame 57 (>=60); Globulin 3.5 g/dL; Glucose 83 mg/dL (74-106); Potassium 3.5 mmol/L (3.5-5.1); Sodium 138 mmol/L (136-145); Total Protein 5.8 g/dL (6.4-8.2)
[2023-05-13 07:58] LABS: Free T3 1.97 pg/mL (2.18-3.98)
[2023-05-13] MEDS: SODIUM CHLORIDE IV (09:14)
[2023-05-13] MEDS: LEVOTHYROXINE SODIUM IV (09:14)
[2023-05-13] MEDS: SERTRALINE HCL 50 MG TABLET 25 MG PO (09:15)
[2023-05-13] MEDS: CARVEDILOL 3.125 MG TABLET PO (09:15)
[2023-05-13] MEDS: POTASSIUM CHLORIDE 10 MEQ ER TABLET 20 MEQ PO (09:16)
--- NOTE | 2023-05-13 09:22 | SWNOTE1 ---
Roccoert is approved to go to [place]. SW notified case management who is rounding with doctor. SW to also notify nurse. SW completed HENS online.
[2023-05-13] MEDS: LIOTHYRONINE SODIUM 25 MCG TABLET PO (09:24)
--- NOTE | 2023-05-13 09:59 | PM.DS1 ---
DS: Providers Provider Date of admission: 05/08/23 14:28 Primary care physician: JAN RIZZO Consults: 05/08/23 14:00 Occupational Therapy Eval and Treat Routine Reason for consultation: weakness Has provider been notified: No Physical Therapy Eval and Treat Routine Reason for consultation: weakness Has provider been notified: No 05/10/23 10:03 Consult to Inspector Golf Ball Routine Reason for consult:: Long Term Other reason:: possible placement DS: Diagnosis Discharge Diagnosis (1) Acute exacerbation of CHF (congestive heart failure): Qualifiers: Heart failure type: combined systolic and diastolic Qualified Code(s): I50.43 - Acute on chronic combined systolic (congestive) and diastolic (congestive) heart failure (2) HFrEF (heart failure with reduced ejection fraction): (3) Pleural effusion: (4) CKD (chronic kidney disease) stage 4, GFR 15-29 ml/min: (5) CAD (coronary artery disease): Qualifiers: Associated angina: without angina Coronary Disease-Associated Artery/Lesion type: [place] artery [place] vs. transplanted heart: [place] heart Qualified Code(s): I25.10 - Atherosclerotic heart disease of [place] coronary artery without angina pectoris (6) HTN (hypertension): Qualifiers: Hypertension type: primary hypertension Qualified Code(s): I10 - Essential (primary) hypertension (7) Hypothyroidism: Qualifiers: Hypothyroidism type: acquired Qualified Code(s): E03.9 - Hypothyroidism, unspecified (8) Cardiac defibrillator in place: (9) Abdominal pain: (10) Constipation: (11) Congestive heart failure: (12) Iron deficiency anemia: (13) Neutropenia: DS: Summary Hospital Course Hospital Course: Presented to emergency room with increasing shortness of breath. Found to have acute combined congestive heart failure. Diuresed well with bolus dosing of diuretics. Patient became somewhat hypotensive so he needed to back off of that and hermetic his medication. Blood pressure medication was held for several days. Blood pressure somewhat better today. Patient having difficulty ambulating secondary to weakness. Patient is severely indurated reduced ejection fraction. Patient is medically stable for discharge to rehab. Diagnoses acute combined congestive heart failure with severely reduced ejection fraction Time Spent with Patient Time attestation: Total time spent providing and/or coordinating discharge services: Time spent: greater than 30 minutes Exam Constitutional Vital Signs, click to edit/add: Last Vital Signs Temp 97.9 F 05/13/23 05:31 Pulse 92 H 05/13/23 09:56 Resp 20 05/13/23 05:31 BP 112/71 05/13/23 09:25 Pulse Ox 96 05/13/23 05:31 O2 Del Method Room Air 05/13/23 05:31 Documenting provider has reviewed patient's vital signs: yes Common normals: no apparent distress Chest Common normals: inspection of chest normal Respiratory Common normals: normal respiratory effort Auscultation: rales (Bases) Cardio Common normals: regular rate and regular rhythm Extremity Common normals: abnormal to inspection (1+ edema-much improved per staff) DS: Data Data Completed and Pending Labs on day of discharge: Labs from last 24 hours 05/13/23 05:00 WBC 3.5 L RBC 3.76 L Hgb 11.7 L Hct 36.8 L MCV 97.9 H MCH 31.1 MCHC 31.8 RDW 16.2 H Plt Count 143 L MPV 10.5 Neut % (Auto) 58.5 Lymph % (Auto) 28.4 Schleicher % (Auto) 8.1 Eos % (Auto) 3.5 Baso % (Auto) 1.2 Neut # (Auto) 2.0 Lymph # (Auto) 1.0 L Schleicher # (Auto) 0.3 Eos # (Auto) 0.1 Baso # (Auto) 0.0 Abs Immat Gran (auto) 0.01 Imm/Tot Granulo (auto) 0.3 Sodium 138 Potassium 3.5 Chloride 103 Carbon Dioxide 28.5 Anion Gap 10.0 BUN 30.0 H Creatinine 1.25 Est GFR ( Amer) >60 Est GFR (Non-Af Amer) 57 L BUN/Creatinine Ratio 24.0 Glucose 83 Calcium 8.1 L Total Bilirubin 0.7 AST 24 ALT 12 L Alkaline Phosphatase 54 NT-Pro-B Natriuret Pep 5895.0 H* Total Protein 5.8 L Albumin 2.3 L Globulin 3.5 Albumin/Globulin Ratio 0.7 Thyroxine (T4) 2.40 L Free T3 1.97 L Discharge Plan Discharge Disposition: Xfer SNF Discharge Medications: New liothyronine 25 mcg Tablet 25 mcg PO QD Qty: 30 11RF carvedilol 3.125 mg Tablet 3.125 mg PO BID Qty: 60 11RF levothyroxine 200 mcg capsule 200 mcg PO DAILY Qty: 30 11RF Continued mirtazapine 7.5 mg tablet 15 mg PO DAILY meclizine 25 mg tablet 25 mg PO TID PRN (Reason: dizziness) sertraline 25 mg tablet 25 mg PO DAILY Discontinued levothyroxine 150 mcg tablet 150 mcg PO DAILY Patient Comments: Not filled since 06-06-22 carvedilol 6.25 mg Tablet 3.125 mg PO BID 30 Days Qty: 30 0RF Software Test Technician/Forestry Pilot Instructions: Discharge to [facility]. Forms: Portal Instructions Discharge Date/Time: 05/13/23 13:56
--- NOTE | 2023-05-13 10:44 | CM.NOTE ---
Rounds made with Dr. Mathews. Plan for discharge today.
--- NOTE | 2023-05-13 12:05 | CM.NOTE ---
2ND Notice for Important Message from Medicare (IMM) reviewed. Offers no questions. Verbalizes understanding.
--- NOTE | 2023-05-13 12:20 | SWNOTE1 ---
MEHUL completed HENS. Pt is ready for discharge to [facility] today. MEHUL sent over finalized dc med rec to [facility]. MEHUL put packet on med surge floor. MEHUL gave CRF to nursing to fill out. MEHUL set up trips and they will be here at 1:45 to take pt. Nursing, pt, and pt's sister notified of time.
--- NOTE | 2023-05-13 12:55 | REH.PTDLY ---
Physical Therapy Daily Note PT Daily Note/Assess Start: 05/08/23 15:49 Freq: Status: Active Protocol: Document 05/13/23 09:55 SERGIO (Rec: 05/13/23 12:55 CARMITAGREG [id number]) Physical Therapy Daily Note/Assessment Time In 09:38 Time Out 09:55 Pain Level 0 Pain Level 0 Subjective Pt in bed upon arrival, alert and oriented. Agreeable to therapy. States he is having some dizziness. Nursing just took BP and it was 112/71. Therapeutic Exercise Minutes (minutes) 7 Therapeutic Exercise Units 0 Therapeutic Exercise Treatment Instructed in Jaki BLANDON seated exs in chair after gait training. Performed with Jaki BLANDON's 10-15x ea for improved strength with exs including AP, LAQ, marching, hip abd, and hip add with demo and verbal cues given. Therapeutic Activity Minutes (minutes) 9 Therapeutic Activity Units 1 Therapeutic Activity Comments Supine to sit transfers SBA with pt using bed rail to help himself up. Once sitting pt reports dizziness is a little worse. Reduces some after 1 min. Handed pt slippers and pt able to don them himself. sit to stand transfers CGA for safety due to dizziness. Pt ambulated 25 feet in room with RW and CGA. Once sitting in chair BP taken again due to pt reporting increased dizziness , BP is 103/67. Dizziness again reduces after sitting for a few minutes. Total Therapy Minutes 16 Total Physical Therapy Units 1 Daily Note Summary Pt continues to have dizziness today that comes and goes. Pt 's activity level is limited by the dizziness. Pt will benefit from SNF stay to gain strength and stamina for pt to return home safely as he lives alone.
--- NOTE | 2023-05-13 13:34 | PC.NURSE ---
report called to Amelia Hendricks.
== END 2023-05-13 13:56 | DRG 291 ==
LOC: ER 13:45 → MS 05-09 06:29
PROVIDERS: Family Medicine; Admitting Provider Family Medicine; Emergency Provider Emergency Medicine Emergency Medical Services; PCP Internal Medicine; Visit Provider Family Medicine
DX: I13.0 Hypertensive heart and chronic kidney disease with heart failure and stage 1 through stage 4 chronic kidney disease, or unspecified chronic kidney disease (principal); I50.43 Acute on chronic combined systolic (congestive) and diastolic (congestive) heart failure; N18.4 Chronic kidney disease, stage 4 (severe); I25.10 Atherosclerotic heart disease of native coronary artery without angina pectoris; E03.9 Hypothyroidism, unspecified; K59.00 Constipation, unspecified; D50.9 Iron deficiency anemia, unspecified; D70.9 Neutropenia, unspecified; Z95.810 Presence of automatic (implantable) cardiac defibrillator; Z66 Do not resuscitate; Z87.891 Personal history of nicotine dependence; Z90.49 Acquired absence of other specified parts of digestive tract; Z98.890 Other specified postprocedural states; I25.2 Old myocardial infarction; J44.9 Chronic obstructive pulmonary disease, unspecified; R10.9 Unspecified abdominal pain; R53.1 Weakness; Z91.81 History of falling; Z87.01 Personal history of pneumonia (recurrent); Z79.899 Other long term (current) drug therapy
CPT/HCPCS: 36415; 71045; 80048; 80053; 80061; 83880; 84436; 84443; 84481; 84484; 85025; 85378; 85610; 87070; 93005; 93308; 93356; 94761; 96365; 96366; 96372; 96375; 96376; 97110; 97162; 97530; 97535; 99285; J0650; J1650; J1940; J3480